=== PATIENT | male | born 1960 | race Caucasian/White ===

== ENCOUNTER 2018-03-09 09:30 | Inpatient (IN) ==
--- NOTE | 2018-03-09 10:04 | Emergency Department Note ---
Disposition Clinical Impression: Chest pain, rule out acute myocardial infarction Cholelithiasis Qualifiers: Cholelithiasis location: other site Biliary obstruction: without biliary obstruction Qualified Code(s): K80.80 - Other cholelithiasis without obstruction Pneumonia Qualifiers: Pneumonia type: due to unspecified organism Laterality: bilateral Lung location : unspecified part of lung Qualified Code(s): J18.9 - Pneumonia, unspecified organism Abdominal pain Qualifiers: Abdominal location: right upper quadrant Qualified Code(s): R10.11 - Right upper quadrant pain Disposition: Admitted As Inpatient Condition: Fair Referrals: Derick Ellis DO [Primary Care Provider] - Forms: ED Satisfaction Letter, Work/School Release Time of Disposition: 15:27 General Adult HPI - General Chief complaint: ED Abdominal Pain Stated complaint: poss kidney stone/sore throat/fever/left shoulder Time Seen by Provider: 03/09/18 09:46 Source: patient Limitations: no limitations Nursing Notes Reviewed: Yes Vital Signs Reviewed: Yes - History of Present Illness HPI Narrative: 57-year-old male presents with multiple complaints. He underwent banding of esophageal varices [address] Masters. Yesterday, he developed substernal/ left-sided chest pain as well as excruciating left shoulder pain he states a known history of a rotator cuff injury to left shoulder but is concerned that this may be associated with chest pain/pressure. He also complains of excruciating right flank pain but denies any fabiana hematuria or dysuria. He denies any fever or chills. He denies any productive cough but states that he has been more short of breath recently. He does wear home oxygen at 2 L by nasal cannula as needed but has required the use of his oxygen more frequently in the past several days. He denies any abdominal pain, nausea, vomiting, hematemesis, hematochezia, or melena. Onset (ago): hour(s) Location: chest, other (Right flank, left shoulder) Pain Severity: severe Pain Scale: 9 Quality: sharp Consistency: Worsening Improves with: nothing Worsens with: nothing Associated symptoms: Denies: fever/chills, nausea/vomiting Treatments Prior to Arrival: none - Related Data Home Medications Medication Instructions Recorded Confirmed ALPRAZolam [Xanax] 1 mg PO BID PRN 05/09/15 03/09/18 Atorvastatin Calcium [Lipitor] 20 mg PO HS 05/09/15 03/09/18 Metformin HCl [Glucophage] 1,000 mg PO BID 05/09/15 03/09/18 Metoprolol [Lopressor] 75 mg PO BID 05/09/15 03/09/18 Nitroglycerin [Nitrolingual] 4.9 gm TL AD PRN 05/09/15 03/09/18 Oxygen 2 l NS HS 03/26/16 03/09/18 Spironolactone [Aldactone] 100 mg PO DAILY 03/26/16 03/09/18 OxyCODONE/APAP 10/325 [Percocet 1 tab PO Q6H PRN 07/30/16 03/09/18 [id number]] Esomeprazole Magnesium [Nexium] 40 mg PO DAILY 12/24/16 03/09/18 Furosemide [Lasix] 40 mg PO DAILY 12/24/16 03/09/18 Insulin Glargine,Hum.rec.anlog 50 unit SQ BID 12/24/16 03/09/18 [Lantus Solostar] Insulin Regular, Human [Novolin R] 20 unit SQ TIDWM 04/28/17 03/09/18 Gabapentin [Neurontin] 300 mg PO BID 07/15/17 03/09/18 Pantoprazole Sodium [Protonix] 40 mg PO DAILY 03/09/18 03/09/18 Sucralfate [Carafate] 1 gm PO TID 03/09/18 03/09/18 Previous Rx's Medication Instructions Recorded Prochlorperazine Maleate 1 tab PO Q6HR PRN #30 tablet 05/07/17 [Compazine] Levothyroxine [Synthroid] 88 mcg PO 0630 #30 tablet 11/23/17 Allergies Allergy/AdvReac Type Severity Reaction Status Date / Time naproxen Allergy Mild Hives Verified 03/09/18 09:41 rituximab Allergy Mild Hives Verified 03/09/18 09:41 JUAN RAMON Inhibitors AdvReac Mild NECK PAIN Verified 03/09/18 09:41 cefdinir AdvReac Mild Dizziness Verified 03/09/18 09:41 hydrocodone AdvReac Mild Vomiting Verified 03/09/18 09:41 levofloxacin AdvReac Mild Dizziness Verified 03/09/18 09:41 ramipril [From Altace] AdvReac Mild NECK PAIN Verified 03/09/18 09:41 tramadol AdvReac Mild Nausea Verified 18 09:41 doxycycline AdvReac Vomiting Verified 03/09/18 09:41 All systems ED: reviewed and negative except as stated. Review of Systems: As Per HPI Constitutional: Denies: fever, chills, weakness, weight change Eyes: Denies: eye pain, eye discharge, vision change ENT ED: Denies: ear pain, throat pain, dental pain, hearing loss, epistaxis, congestion, dysphagia Cardiovascular: Reports: as per HPI, chest pain. Denies: palpitations, dyspnea on exertion, edema, syncope Respiratory: Reports: as per HPI, dyspnea. Denies: cough, wheezes, hemoptysis, stridor Gastrointestinal: Denies: abdominal pain, nausea, vomiting, diarrhea, constipation, hematemesis, melena, hematochezia Genitourinary: Denies: urgency, dysuria, frequency, hematuria Musculoskeletal: Reports: as per HPI, arthralgia (Left shoulder pain), other ( Right flank pain). Denies: back pain, neck pain, myalgia Integumentary: Denies: rash, abrasion, lesions Neurological: Denies: headache, weakness, numbness, paresthesias, confusion, abnormal gait, vertigo Psychiatric: Denies: anxiety, depression, suicidal thoughts, homicidal thoughts , auditory hallucinations, visual hallucinations Endocrine: Denies: fatigue Hematological/Lymphatic: Denies: easy bleeding, easy bruising Allergic/Immunologic: Denies: facial swelling, urticaria Past Medical History - Past Medical History Attestation: Yes The following information was validated with the patient. Source: patient, nursing notes reviewed Medical history: Reports: cancer, CHF, COPD, diabetes, GERD, hyperlipidemia, hypertension, kidney stones, myocardial infarction Surgical history: Reports: LE stent(s) Psychiatric history: Reports: depression - Social History Smoking Status: Former smoker Smokeless Tobacco Status: No Alcohol use: Reports: none Drug use: Reports: none Physical Exam - General Limitations: no limitations General appearance: alert - Head Head exam: atraumatic, normocephalic, normal inspection - Eye Eye exam: Present: normal appearance, PERRL, EOMI. Absent: nystagmus - ENT ENT exam: mucous membranes moist - Neck Neck exam: Present: normal inspection, full ROM, trachea midline - Chest Chest inspection: Present: normal inspection, symmetric chest wall rise - Respiratory Respiratory exam: Present: normal lung sounds bilaterally. Absent: respiratory distress, wheezes, stridor, accessory muscle use, prolonged expiratory phase - Cardiovascular Cardiovascular exam: Present: regular rate, normal rhythm, normal heart sounds - Abdominal Exam Abdominal exam: Present: soft, Non-Tender, normal bowel sounds - Expanded Upper Extremity Exam Shoulder exam: Present: tenderness, tenderness over AC joint. Absent: full ROM (Range of motion limited by pain, left shoulder) - Back Exam Back exam: Present: normal inspection, full ROM. Absent: tenderness, CVA tenderness (R), CVA tenderness (L) - Neurological Exam Neurological exam: Present: alert, oriented X3 - Psychiatric Psychiatric exam: Present: normal affect, normal mood - Skin Skin exam: Present: warm, dry, intact, normal color. Absent: rash Course Course Narrative: 1526: I spoke with Dr. Painter of the hospitalist service. He has agreed to accept the patient for admission to the hospitalist care. I discussed this plan with Dr. Vides. Dr. Vides has reviewed the patient's laboratory and radiologic workup and agrees with this plan. Vital Signs Temperature 100.2 F H 03/09/18 09:41 Pulse Rate 96 03/09/18 09:41 Respiratory Rate 28 03/09/18 09:41 Blood Pressure 149/80 03/09/18 09:41 O2 Sat by Pulse Oximetry 88 03/09/18 09:41 Temperature 100.2 F H 03/09/18 09:41 Pulse Rate 100 03/09/18 14:42 Respiratory Rate 24 03/09/18 14:42 Blood Pressure 149/92 03/09/18 14:42 O2 Sat by Pulse Oximetry 92 03/09/18 14:42 Oxygen Delivery Oxygen Delivery Nasal Cannula Medical Decision Making - Medical Records Medical records reviewed: Yes I reviewed the patient's medical records. - Lab Data Lab results reviewed: Yes I reviewed the patient's lab results. Lab results narrative: Laboratory Last Values WBC 3.2 K/mcL (4.3-11.1) L 03/09/18 10:38 RBC 4.51 M/mcL (4.19-5.50) 03/09/18 10:38 Hgb 13.2 g/dL (12.9-16.9) 03/09/18 10:38 Hct 40.6 % (37.5-50.1) 03/09/18 10:38 MCV 90.0 fL (83.0-100.0) 03/09/18 10:38 MCH 29.3 pg (28.0-33.3) 03/09/18 10:38 MCHC 32.5 g/dL (31.6-35.5) 03/09/18 10:38 RDW 14.6 % (11.5-14.5) H 03/09/18 10:38 Plt Count 46 K/mcL (140-400) L 03/09/18 10:38 MPV 11.0 fL (9.4-12.4) 03/09/18 10:38 Immature Plt Fraction 5.7 % (1.1-6.1) 03/09/18 10:38 PT 13.9 Seconds (9.4-12.1) H 03/09/18 10:38 INR 1.3 03/09/18 10:38 APTT 35.7 Seconds (26.0-36.0) 03/09/18 10:38 Sodium 132 mEq/L (136-145) L 03/09/18 10:38 Potassium 4.5 mEq/L (3.5-5.1) 03/09/18 10:38 Chloride 95 mEq/L (98-107) L 03/09/18 10:38 Carbon Dioxide 28 mEq/L (23-29) 03/09/18 10:38 BUN 12 mg/dL (6-20) 03/09/18 10:38 Creatinine 0.89 mg/dL (0.70-1.30) 03/09/18 10:38 Est GFR ( Amer) > 60 (> 60) 03/09/18 10:38 Est GFR (Non-Af Amer) > 60 (> 60) 03/09/18 10:38 BUN/Creatinine Ratio 13 (6-26) 03/09/18 10:38 Glucose 386 mg/dL (70-105) H 03/09/18 10:38 Calculated Osmolality 290 (280-300) 03/09/18 10:38 Calcium 9.5 mg/dL (8.6-10.3) 03/09/18 10:38 Total Bilirubin 6.4 mg/dL (0.3-1.0) H 03/09/18 10:38 AST 20 Units/L (13-39) 03/09/18 10:38 ALT 30 Units/L (7-52) 03/09/18 10:38 Alkaline Phosphatase 99 Units/L (34-104) 03/09/18 10:38 Troponin I 0.03 ng/mL (< 0.04) 03/09/18 10:38 Serum Total Protein 6.7 g/dL (6.4-8.9) 03/09/18 10:38 Albumin 4.2 g/dL (3.5-5.7) 03/09/18 10:38 Globulin 2.5 g/dL (2.4-3.5) 03/09/18 10:38 Albumin/Globulin Ratio 1.7 (1.1-2.2) 03/09/18 10:38 Lipase 5 Units/L (11-82) L 03/09/18 10:38 Result diagrams: 03/09/18 10:38 03/09/18 10:38 Lab Results 03/09/18 03/09/18 03/09/18 Range/Units 10:38 10:38 10:38 WBC (4.3-11.1) K/mcL RBC (4.19-5.50) M/mcL Hgb (12.9-16.9) g/dL Hct (37.5-50.1) % MCV (83.0-100.0) fL MCH (28.0-33.3) pg MCHC (31.6-35.5) g/dL RDW (11.5-14.5) % Plt Count (140-400) K/mcL MPV (9.4-12.4) fL Seg Neutrophils % % Band Neutrophils % (0-4) % Lymphocytes % % Monocytes % % Metamyelocytes % (0) % Neutrophils # (1.6-8.9) K/mcL Lymphocytes # (0.6-4.6) K/mcL Monocytes # (0.0-1.3) K/mcL Reactive Lymphocytes (Not Present) Platelet Estimate (Normal) Immature Plt Fraction (1.1-6.1) % PT 13.9 H (9.4-12.1) Seconds INR 1.3 APTT 35.7 (26.0-36.0) Seconds Sodium 132 L (136-145) mEq/L Potassium 4.5 (3.5-5.1) mEq/L Chloride 95 L (98-107) mEq/L Carbon Dioxide 28 (23-29) mEq/L BUN 12 (6-20) mg/dL Creatinine 0.89 (0.70-1.30) mg/dL Est GFR ( Amer) > 60 (> 60) Est GFR (Non-Af Amer) > 60 (> 60) BUN/Creatinine Ratio 13 (6-26) Glucose 386 H (70-105) mg/dL Calculated Osmolality 290 (280-300) Lactic Acid (0.5-2.2) mmol/L Calcium 9.5 (8.6-10.3) mg/dL Total Bilirubin 6.4 H (0.3-1.0) mg/dL AST 20 (13-39) Units/L ALT 30 (7-52) Units/L Alkaline Phosphatase 99 (34-104) Units/L Troponin I 0.03 (< 0.04) ng/mL B-Natriuretic Peptide 200 H (Less than 100) pg/mL Serum Total Protein 6.7 (6.4-8.9) g/dL Albumin 4.2 (3.5-5.7) g/dL Globulin 2.5 (2.4-3.5) g/dL Albumin/Globulin Ratio 1.7 (1.1-2.2) Lipase 5 L (11-82) Units/L Urine Color (Yellow) Urine Clarity (Clear) Urine pH (5.0-8.0) pH Units Ur Specific [place] (1.010-1.025) Urine Protein (Neg-Trace) mg/dL Urine Glucose (UA) (Normal) mg/dL Urine Ketones (Negative) mg/dL Urine Blood (Negative) Urine Nitrite (Negative) Urine Bilirubin (Negative) Urine Urobilinogen (Normal) mg/dL Ur Leukocyte Esterase (Negative) Urine Microscopic RBC Urine Microscopic WBC (0-3) per hpf Ur Squamous Epith Cells (None-Few) per lpf Urine Bacteria (None-Few) per hpf Hyaline Casts (None-Few) per lpf Urine Yeast Ur Culture Indicated? (NO) Specimen Rejected 03/09/18 03/09/18 03/09/18 Range/Units 10:38 10:58 11:58 WBC 3.2 L (4.3-11.1) K/mcL RBC 4.51 (4.19-5.50) M/mcL Hgb 13.2 (12.9-16.9) g/dL Hct 40.6 (37.5-50.1) % MCV 90.0 (83.0-100.0) fL MCH 29.3 (28.0-33.3) pg MCHC 32.5 (31.6-35.5) g/dL RDW 14.6 H (11.5-14.5) % Plt Count 46 L (140-400) K/mcL MPV 11.0 (9.4-12.4) fL Seg Neutrophils % 34.0 % Band Neutrophils % 16.0 H (0-4) % Lymphocytes % 26.0 % Monocytes % 14.0 % Metamyelocytes % 10.0 H (0) % Neutrophils # 1.6 (1.6-8.9) K/mcL Lymphocytes # 0.8 (0.6-4.6) K/mcL Monocytes # 0.5 (0.0-1.3) K/mcL Reactive Lymphocytes Present A (Not Present) Platelet Estimate Decreased L (Normal) Immature Plt Fraction 5.7 (1.1-6.1) % PT (9.4-12.1) Seconds INR APTT (26.0-36.0) Seconds Sodium (136-145) mEq/L Potassium (3.5-5.1) mEq/L Chloride (98-107) mEq/L Carbon Dioxide (23-29) mEq/L BUN (6-20) mg/dL Creatinine (0.70-1.30) mg/dL Est GFR ( Amer) (> 60) Est GFR (Non-Af Amer) (> 60) BUN/Creatinine Ratio (6-26) Glucose (70-105) mg/dL Calculated Osmolality (280-300) Lactic Acid (0.5-2.2) mmol/L Calcium (8.6-10.3) mg/dL Total Bilirubin (0.3-1.0) mg/dL AST (13-39) Units/L ALT (7-52) Units/L Alkaline Phosphatase (34-104) Units/L Troponin I (< 0.04) ng/mL B-Natriuretic Peptide (Less than 100) pg/mL Serum Total Protein (6.4-8.9) g/dL Albumin (3.5-5.7) g/dL Globulin (2.4-3.5) g/dL Albumin/Globulin Ratio (1.1-2.2) Lipase (11-82) Units/L Urine Color Dark Yellow (Yellow) Urine Clarity Clear (Clear) Urine pH 6.0 (5.0-8.0) pH Units Ur Specific [place] > 1.030 H (1.010-1.025) Urine Protein 30 H (Neg-Trace) mg/dL Urine Glucose (UA) >=1000 H (Normal) mg/dL Urine Ketones Trace H (Negative) mg/dL Urine Blood Trace H (Negative) Urine Nitrite Negative (Negative) Urine Bilirubin Negative (Negative) Urine Urobilinogen Normal (Normal) mg/dL Ur Leukocyte Esterase Negative (Negative) Urine Microscopic RBC Test Not Performed Urine Microscopic WBC 0-3 (0-3) per hpf Ur Squamous Epith Cells Few (None-Few) per lpf Urine Bacteria Few (None-Few) per hpf Hyaline Casts None Seen (None-Few) per lpf Urine Yeast Test Not Performed Ur Culture Indicated? NO (NO) Specimen Rejected Hemolyzed 03/09/18 Range/Units 12:39 WBC (4.3-11.1) K/mcL RBC (4.19-5.50) M/mcL Hgb (12.9-16.9) g/dL Hct (37.5-50.1) % MCV (83.0-100.0) fL MCH (28.0-33.3) pg MCHC (31.6-35.5) g/dL RDW (11.5-14.5) % Plt Count (140-400) K/mcL MPV (9.4-12.4) fL Seg Neutrophils % % Band Neutrophils % (0-4) % Lymphocytes % % Monocytes % % Metamyelocytes % (0) % Neutrophils # (1.6-8.9) K/mcL Lymphocytes # (0.6-4.6) K/mcL Monocytes # (0.0-1.3) K/mcL Reactive Lymphocytes (Not Present) Platelet Estimate (Normal) Immature Plt Fraction (1.1-6.1) % PT (9.4-12.1) Seconds INR APTT (26.0-36.0) Seconds Sodium (136-145) mEq/L Potassium (3.5-5.1) mEq/L Chloride (98-107) mEq/L Carbon Dioxide (23-29) mEq/L BUN (6-20) mg/dL Creatinine (0.70-1.30) mg/dL Est GFR ( Amer) (> 60) Est GFR (Non-Af Amer) (> 60) BUN/Creatinine Ratio (6-26) Glucose (70-105) mg/dL Calculated Osmolality (280-300) Lactic Acid 1.8 (0.5-2.2) mmol/L Calcium (8.6-10.3) mg/dL Total Bilirubin (0.3-1.0) mg/dL AST (13-39) Units/L ALT (7-52) Units/L Alkaline Phosphatase (34-104) Units/L Troponin I (< 0.04) ng/mL B-Natriuretic Peptide (Less than 100) pg/mL Serum Total Protein (6.4-8.9) g/dL Albumin (3.5-5.7) g/dL Globulin (2.4-3.5) g/dL Albumin/Globulin Ratio (1.1-2.2) Lipase (11-82) Units/L Urine Color (Yellow) Urine Clarity (Clear) Urine pH (5.0-8.0) pH Units Ur Specific [place] (1.010-1.025) Urine Protein (Neg-Trace) mg/dL Urine Glucose (UA) (Normal) mg/dL Urine Ketones (Negative) mg/dL Urine Blood (Negative) Urine Nitrite (Negative) Urine Bilirubin (Negative) Urine Urobilinogen (Normal) mg/dL Ur Leukocyte Esterase (Negative) Urine Microscopic RBC Urine Microscopic WBC (0-3) per hpf Ur Squamous Epith Cells (None-Few) per lpf Urine Bacteria (None-Few) per hpf Hyaline Casts (None-Few) per lpf Urine Yeast Ur Culture Indicated? (NO) Specimen Rejected - Radiology Data Radiology results reviewed: Yes I reviewed the patient's radiology results. Chest X-Ray 03/09/18 09:56 IMPRESSION: 1. Interval worsening of cardiomegaly with prominence of the pulmonary vasculature and trace bilateral effusions. Findings are favored to represent pulmonary edema, however, atypical infection can have a similar appearance. D/ / 03/09/2018 11:08:34 Monica Ny MD / nikos Interpreting Provider: Monica Ny MD - EKG Data EKG #1 EKG attestation: Yes I reviewed and interpreted this EKG. EKG results narrative: EKG reviewed by Dr. Vides as well. EKG shows a sinus rhythm with a ventricular rate of 96 bpm. AR interval 172, QRS duration 114, QT/QTc interval 358/411. No ectopy noted. No STEMI. No significant changes when compared to an EKG dated from 07/24/16.
[2018-03-09 10:48] LABS: Red Cell Distribution Width 14.6 % (11.5-14.5)
[2018-03-09 10:50] LABS: Hematocrit 40.6 % (37.5-50.1); Hemoglobin 13.2 g/dL (12.9-16.9); Immature Platelets 5.7 % (1.1-6.1); Mean Corpuscular HGB Conc 32.5 g/dL (31.6-35.5); Mean Corpuscular Hemoglobin 29.3 pg (28.0-33.3); Red Blood Count 4.51 M/mcL (4.19-5.50)
[2018-03-09 10:56] LABS: Platelet Count 46 K/mcL (140-400)
[2018-03-09 10:59] LABS: INR 1.3; Prothrombin Time 13.9 Seconds (9.4-12.1)
[2018-03-09 11:01] LABS: Activated Partial Thrombo Time 35.7 Seconds (26.0-36.0)
[2018-03-09 11:09] LABS: Troponin I 0.03 ng/mL (< 0.04)
[2018-03-09 11:10] LABS: Alanine Aminotransferase 30 Units/L (7-52); Albumin 4.2 g/dL (3.5-5.7); Albumin/Globulin Ratio 1.7 (1.1-2.2); Alkaline Phosphatase 99 Units/L (34-104); Aspartate Amino Transferase 20 Units/L (13-39); BUN/Creatinine Ratio 13 (6-26); Bilirubin,Total 6.4 mg/dL (0.3-1.0); Blood Urea Nitrogen 12 mg/dL (6-20); Calcium 9.5 mg/dL (8.6-10.3); Carbon Dioxide 28 mEq/L (23-29); Chloride 95 mEq/L (98-107); Globulin 2.5 g/dL (2.4-3.5); Glucose 386 mg/dL (70-105); Lipase 5 Units/L (11-82); Osmolality,Calculated 290 (280-300); Potassium 4.5 mEq/L (3.5-5.1); Sodium 132 mEq/L (136-145); Total Protein 6.7 g/dL (6.4-8.9); eGFR For African Americans > 60 (> 60); eGFR For Non-African Americans > 60 (> 60)
--- NOTE | 2018-03-09 11:11 | Emergency Department Note ---
Disposition Clinical Impression: Chest pain, rule out acute myocardial infarction Cholelithiasis Qualifiers: Cholelithiasis location: other site Biliary obstruction: without biliary obstruction Qualified Code(s): K80.80 - Other cholelithiasis without obstruction Pneumonia Qualifiers: Pneumonia type: due to unspecified organism Laterality: bilateral Lung location : unspecified part of lung Qualified Code(s): J18.9 - Pneumonia, unspecified organism Abdominal pain Qualifiers: Abdominal location: right upper quadrant Qualified Code(s): R10.11 - Right upper quadrant pain Disposition: Admitted As Inpatient Condition: Fair General Adult HPI - General Chief complaint: ED Abdominal Pain Stated complaint: poss kidney stone/sore throat/fever/left shoulder Time Seen by Provider: 03/09/18 09:46 Source: patient Limitations: no limitations - History of Present Illness Location: chest, other (Right flank, left shoulder) Pain Scale: 6 Quality: sharp Improves with: nothing Worsens with: nothing Associated symptoms: Denies: fever/chills, nausea/vomiting Treatments Prior to Arrival: none - Related Data Home Medications Medication Instructions Recorded Confirmed ALPRAZolam [Xanax] 1 mg PO BID PRN 05/09/15 03/09/18 Atorvastatin Calcium [Lipitor] 20 mg PO HS 05/09/15 03/09/18 Metformin HCl [Glucophage] 1,000 mg PO BID 05/09/15 03/09/18 Metoprolol [Lopressor] 75 mg PO BID 05/09/15 03/09/18 Nitroglycerin [Nitrolingual] 4.9 gm TL AD PRN 05/09/15 03/09/18 Oxygen 2 l NS 03/26/16 03/09/18 Spironolactone [Aldactone] 100 mg PO DAILY 03/26/16 03/09/18 OxyCODONE/APAP 10/325 [Percocet 1 tab PO Q6H PRN 07/30/16 03/09/18 10/325] Esomeprazole Magnesium [Nexium] 40 mg PO DAILY 12/24/16 03/09/18 Furosemide [Lasix] 40 mg PO DAILY 12/24/16 03/09/18 Insulin Glargine,Hum.rec.anlog 50 unit SQ BID 12/24/16 03/09/18 [Lantus Solostar] Insulin Regular, Human [Novolin R] 20 unit SQ TIDWM 04/28/17 03/09/18 Gabapentin [Neurontin] 300 mg PO BID 07/15/17 03/09/18 Pantoprazole Sodium [Protonix] 40 mg PO DAILY 03/09/18 03/09/18 Sucralfate [Carafate] 1 gm PO TID 03/09/18 03/09/18 Previous Rx's Medication Instructions Recorded Prochlorperazine Maleate 1 tab PO Q6HR PRN #30 tablet 05/07/17 [Compazine] Levothyroxine [Synthroid] 88 mcg PO 0630 #30 tablet 11/23/17 Allergies Allergy/AdvReac Type Severity Reaction Status Date / Time naproxen Allergy Mild Hives Verified 03/09/18 09:41 rituximab Allergy Mild Hives Verified 03/09/18 09:41 JUAN RAMON Inhibitors AdvReac Mild NECK PAIN Verified 03/09/18 09:41 cefdinir AdvReac Mild Dizziness Verified 03/09/18 09:41 hydrocodone AdvReac Mild Vomiting Verified 03/09/18 09:41 levofloxacin AdvReac Mild Dizziness Verified 03/09/18 09:41 ramipril [From Altace] AdvReac Mild NECK PAIN Verified 03/09/18 09:41 tramadol AdvReac Mild Nausea Verified 03/09/18 09:41 doxycycline AdvReac Vomiting Verified 03/09/18 09:41 Constitutional: Denies: fever, chills, weakness, weight change Eyes: Denies: eye pain, eye discharge, vision change ENT ED: Denies: ear pain, throat pain, dental pain, hearing loss, epistaxis, congestion, dysphagia Cardiovascular: Reports: as per HPI, chest pain. Denies: palpitations, dyspnea on exertion, edema, syncope Respiratory: Reports: as per HPI, dyspnea. Denies: cough, wheezes, hemoptysis, stridor Gastrointestinal: Denies: abdominal pain, nausea, vomiting, diarrhea, constipation, hematemesis, melena, hematochezia Genitourinary: Denies: urgency, dysuria, frequency, hematuria Musculoskeletal: Reports: as per HPI, arthralgia (Left shoulder pain), other ( Right flank pain). Denies: back pain, neck pain, myalgia Integumentary: Denies: rash, abrasion, lesions Neurological: Denies: headache, weakness, numbness, paresthesias, confusion, abnormal gait, vertigo Psychiatric: Denies: anxiety, depression, suicidal thoughts, homicidal thoughts , auditory hallucinations, visual hallucinations Endocrine: Denies: fatigue Hematological/Lymphatic: Denies: easy bleeding, easy bruising Allergic/Immunologic: Denies: facial swelling, urticaria Past Medical History - Past Medical History Medical history: Reports: cancer, CHF, COPD, diabetes, GERD, hyperlipidemia, hypertension, kidney stones, myocardial infarction Surgical history: Reports: LE stent(s) Psychiatric history: Reports: depression - Social History Smoking Status: Former smoker Smokeless Tobacco Status: No Alcohol use: Reports: none Drug use: Reports: none Physical Exam - General Limitations: no limitations General appearance: alert Course Vital Signs Temperature 100.2 F H 03/09/18 09:41 Pulse Rate 96 03/09/18 09:41 Respiratory Rate 28 03/09/18 09:41 Blood Pressure 149/80 03/09/18 09:41 O2 Sat by Pulse Oximetry 88 03/09/18 09:41 Temperature 98.4 F 03/09/18 19:24 Pulse Rate 97 03/09/18 19:24 Respiratory Rate 16 03/09/18 19:24 Blood Pressure 119/68 03/09/18 19:24 O2 Sat by Pulse Oximetry 93 03/09/18 19:24 Oxygen Delivery Oxygen Delivery Nasal Cannula Medical Decision Making - Lab Data Result diagrams: 03/09/18 10:38 03/09/18 10:38 Lab Results 03/09/18 03/09/18 03/09/18 Range/Units 10:38 10:38 10:38 WBC (4.3-11.1) K/mcL RBC (4.19-5.50) M/mcL Hgb (12.9-16.9) g/dL Hct (37.5-50.1) % MCV (83.0-100.0) fL MCH (28.0-33.3) pg MCHC (31.6-35.5) g/dL RDW (11.5-14.5) % Plt Count (140-400) K/mcL MPV (9.4-12.4) fL Seg Neutrophils % % Band Neutrophils % (0-4) % Lymphocytes % % Monocytes % % Metamyelocytes % (0) % Neutrophils # (1.6-8.9) K/mcL Lymphocytes # (0.6-4.6) K/mcL Monocytes # (0.0-1.3) K/mcL Reactive Lymphocytes (Not Present) Platelet Estimate (Normal) Immature Plt Fraction (1.1-6.1) % PT 13.9 H (9.4-12.1) Seconds INR 1.3 APTT 35.7 (26.0-36.0) Seconds Sodium 132 L (136-145) mEq/L Potassium 4.5 (3.5-5.1) mEq/L Chloride 95 L (98-107) mEq/L Carbon Dioxide 28 (23-29) mEq/L BUN 12 (6-20) mg/dL Creatinine 0.89 (0.70-1.30) mg/dL Est GFR ( Amer) > 60 (> 60) Est GFR (Non-Af Amer) > 60 (> 60) BUN/Creatinine Ratio 13 (6-26) Glucose 386 H (70-105) mg/dL Calculated Osmolality 290 (280-300) Lactic Acid (0.5-2.2) mmol/L Calcium 9.5 (8.6-10.3) mg/dL Total Bilirubin 6.4 H (0.3-1.0) mg/dL AST 20 (13-39) Units/L ALT 30 (7-52) Units/L Alkaline Phosphatase 99 (34-104) Units/L Troponin I 0.03 (< 0.04) ng/mL B-Natriuretic Peptide 200 H (Less than 100) pg/mL Serum Total Protein 6.7 (6.4-8.9) g/dL Albumin 4.2 (3.5-5.7) g/dL Globulin 2.5 (2.4-3.5) g/dL Albumin/Globulin Ratio 1.7 (1.1-2.2) Lipase 5 L (11-82) Units/L Urine Color (Yellow) Urine Clarity (Clear) Urine pH (5.0-8.0) pH Units Ur Specific [place] (1.010-1.025) Urine Protein (Neg-Trace) mg/dL Urine Glucose (UA) (Normal) mg/dL Urine Ketones (Negative) mg/dL Urine Blood (Negative) Urine Nitrite (Negative) Urine Bilirubin (Negative) Urine Urobilinogen (Normal) mg/dL Ur Leukocyte Esterase (Negative) Urine Microscopic RBC Urine Microscopic WBC (0-3) per hpf Ur Squamous Epith Cells (None-Few) per lpf Urine Bacteria (None-Few) per hpf Hyaline Casts (None-Few) per lpf Urine Yeast Ur Culture Indicated? (NO) Specimen Rejected 03/09/18 03/09/18 03/09/18 Range/Units 10:38 10:58 11:58 WBC 3.2 L (4.3-11.1) K/mcL RBC 4.51 (4.19-5.50) M/mcL Hgb 13.2 (12.9-16.9) g/dL Hct 40.6 (37.5-50.1) % MCV 90.0 (83.0-100.0) fL MCH 29.3 (28.0-33.3) pg MCHC 32.5 (31.6-35.5) g/dL RDW 14.6 H (11.5-14.5) % Plt Count 46 L (140-400) K/mcL MPV 11.0 (9.4-12.4) fL Seg Neutrophils % 34.0 % Band Neutrophils % 16.0 H (0-4) % Lymphocytes % 26.0 % Monocytes % 14.0 % Metamyelocytes % 10.0 H (0) % Neutrophils # 1.6 (1.6-8.9) K/mcL Lymphocytes # 0.8 (0.6-4.6) K/mcL Monocytes # 0.5 (0.0-1.3) K/mcL Reactive Lymphocytes Present A (Not Present) Platelet Estimate Decreased L (Normal) Immature Plt Fraction 5.7 (1.1-6.1) % PT (9.4-12.1) Seconds INR APTT (26.0-36.0) Seconds Sodium (136-145) mEq/L Potassium (3.5-5.1) mEq/L Chloride (98-107) mEq/L Carbon Dioxide (23-29) mEq/L BUN (6-20) mg/dL Creatinine (0.70-1.30) mg/dL Est GFR ( Amer) (> 60) Est GFR (Non-Af Amer) (> 60) BUN/Creatinine Ratio (6-26) Glucose (70-105) mg/dL Calculated Osmolality (280-300) Lactic Acid (0.5-2.2) mmol/L Calcium (8.6-10.3) mg/dL Total Bilirubin (0.3-1.0) mg/dL AST (13-39) Units/L ALT (7-52) Units/L Alkaline Phosphatase (34-104) Units/L Troponin I (< 0.04) ng/mL B-Natriuretic Peptide (Less than 100) pg/mL Serum Total Protein (6.4-8.9) g/dL Albumin (3.5-5.7) g/dL Globulin (2.4-3.5) g/dL Albumin/Globulin Ratio (1.1-2.2) Lipase (11-82) Units/L Urine Color Dark Yellow (Yellow) Urine Clarity Clear (Clear) Urine pH 6.0 (5.0-8.0) pH Units Ur Specific [place] > 1.030 H (1.010-1.025) Urine Protein 30 H (Neg-Trace) mg/dL Urine Glucose (UA) >=1000 H (Normal) mg/dL Urine Ketones Trace H (Negative) mg/dL Urine Blood Trace H (Negative) Urine Nitrite Negative (Negative) Urine Bilirubin Negative (Negative) Urine Urobilinogen Normal (Normal) mg/dL Ur Leukocyte Esterase Negative (Negative) Urine Microscopic RBC Test Not Performed Urine Microscopic WBC 0-3 (0-3) per hpf Ur Squamous Epith Cells Few (None-Few) per lpf Urine Bacteria Few (None-Few) per hpf Hyaline Casts None Seen (None-Few) per lpf Urine Yeast Test Not Performed Ur Culture Indicated? NO (NO) Specimen Rejected Hemolyzed 03/09/18 Range/Units 12:39 WBC (4.3-11.1) K/mcL RBC (4.19-5.50) M/mcL Hgb (12.9-16.9) g/dL Hct (37.5-50.1) % MCV (83.0-100.0) fL MCH (28.0-33.3) pg MCHC (31.6-35.5) g/dL RDW (11.5-14.5) % Plt Count (140-400) K/mcL MPV (9.4-12.4) fL Seg Neutrophils % % Band Neutrophils % (0-4) % Lymphocytes % % Monocytes % % Metamyelocytes % (0) % Neutrophils # (1.6-8.9) K/mcL Lymphocytes # (0.6-4.6) K/mcL Monocytes # (0.0-1.3) K/mcL Reactive Lymphocytes (Not Present) Platelet Estimate (Normal) Immature Plt Fraction (1.1-6.1) % PT (9.4-12.1) Seconds INR APTT (26.0-36.0) Seconds Sodium (136-145) mEq/L Potassium (3.5-5.1) mEq/L Chloride (98-107) mEq/L Carbon Dioxide (23-29) mEq/L BUN (6-20) mg/dL Creatinine (0.70-1.30) mg/dL Est GFR ( Amer) (> 60) Est GFR (Non-Af Amer) (> 60) BUN/Creatinine Ratio (6-26) Glucose (70-105) mg/dL Calculated Osmolality (280-300) Lactic Acid 1.8 (0.5-2.2) mmol/L Calcium (8.6-10.3) mg/dL Total Bilirubin (0.3-1.0) mg/dL AST (13-39) Units/L ALT (7-52) Units/L Alkaline Phosphatase (34-104) Units/L Troponin I (< 0.04) ng/mL B-Natriuretic Peptide (Less than 100) pg/mL Serum Total Protein (6.4-8.9) g/dL Albumin (3.5-5.7) g/dL Globulin (2.4-3.5) g/dL Albumin/Globulin Ratio (1.1-2.2) Lipase (11-82) Units/L Urine Color (Yellow) Urine Clarity (Clear) Urine pH (5.0-8.0) pH Units Ur Specific [place] (1.010-1.025) Urine Protein (Neg-Trace) mg/dL Urine Glucose (UA) (Normal) mg/dL Urine Ketones (Negative) mg/dL Urine Blood (Negative) Urine Nitrite (Negative) Urine Bilirubin (Negative) Urine Urobilinogen (Normal) mg/dL Ur Leukocyte Esterase (Negative) Urine Microscopic RBC Urine Microscopic WBC (0-3) per hpf Ur Squamous Epith Cells (None-Few) per lpf Urine Bacteria (None-Few) per hpf Hyaline Casts (None-Few) per lpf Urine Yeast Ur Culture Indicated? (NO) Specimen Rejected
[2018-03-09] MEDS ORDERED: Isovue-370 500 ML INFUS..BTL IV ONE (11:15)
[2018-03-09 11:22] LABS: Bilirubin,Urine Negative (Negative); Blood,Urine Trace (Negative); Clarity,Urine Clear (Clear); Color,Urine Dark Yellow (Yellow); Glucose,Urine (UA) >=1000 mg/dL (Normal); Ketones,Urine Trace mg/dL (Negative); Leukocyte Esterase,Urine Negative (Negative); Nitrite,Urine Negative (Negative); Protein,Urine 30 mg/dL (Neg-Trace); Specific Gravity,Urine > 1.030 (1.010-1.025); Urobilinogen,Urine Normal (Normal)
[2018-03-09] MEDS ORDERED: Piperacillin/Tazobactam 3.375 GM in 0.9 % Sodium Chloride Mini Bag 100 ML IVPB ONE (11:26)
[2018-03-09 11:27] LABS: Hyaline Casts,Urine None Seen per lpf (None-Few)
[2018-03-09 11:31] LABS: Lymphocytes # 0.8 K/mcL (0.6-4.6); Monocytes # 0.5 K/mcL (0.0-1.3); Neutrophils # 1.6 K/mcL (1.6-8.9); Platelet Estimate Decreased (Normal); Reactive Lymphocytes Present (Not Present)
[2018-03-09 11:44] LABS: Bacteria,Urine Few per hpf (None-Few); Squamous Epithelial Cell,Urine Few per lpf (None-Few)
[2018-03-09 11:45] LABS: WBC,Urine 0-3 per hpf (0-3)
[2018-03-09] MEDS ORDERED: Naloxone 0.4 MG/ML INJ IVP PRN (16:19)
[2018-03-09] MEDS ORDERED: *HR* OxyCODONE/APAP 10/325 TABLET PO PRN (16:24)
[2018-03-09] MEDS ORDERED: Nitroglycerin Spray 4.9 GM BOTTLE TL PRN (16:24)
[2018-03-09] MEDS ORDERED: ALPRAZolam 1 MG TABLET PO PRN (16:24)
[2018-03-09] MEDS ORDERED: *HR* OxyCODONE/APAP 5/325 TABLET PO ONE (16:45)
[2018-03-09] MEDS ORDERED: Ondansetron ODT 4 MG TAB.RAPDIS SL ONE (16:45)
--- NOTE | 2018-03-09 16:49 | Internal Med History&Physical ---
<Mandi Lee - Last Filed: 03/09/18 17:39> Date of Encounter: 03/09/18 Time of Encounter: 16:36 Internal Medicine - H&P: HPI Chief complaint: RUQ pain and chest pain Admitted From: Home Plans for Post Hospital Care: Home History of present illness: Mr. Fang is a 57 year old male who has hx of esophageal varices, CLL, VA, and DM type 11. The patient saw Dr Masters on the for a esophageal banding check. The patient indicated that his bands were intact but a polyp was seen and was removed. The patient indicated that he hassn't felt well since the procedure and c/o RUQ pain, sob and mild chest tightness. The patient was found to have a distended GB in the Ed which was visualized with a CT that showed choliliathiases with nonspecific gallbladder wall thickening. This was noted to likely be related to liver disease rather than an acute sonal. The patient total bilirubin was also elevated at 6.4. The chest ct showed no pulmonary embolus, a 14 mm nodule that was not present in Oct 2017, and opacities that could represent PNA. The patient was started on zosyn in the ED. The wbc count was 3.2. Subjective fevers reported. Temp is currently 100.2. Na is 132, BNP is 200, trop was 0.03. he patient is currently on 4L nasal cannula with o2 sat at 92%. Blood glucose is elevated at 386 and UA was + for glucose gt 1000. Discussed the case with Dr. Floyd, who recommended no tylenol products, continue zosyn and he will see that patient in am. Past Med Surg Social Fam HX - Past Medical History Medical history: cancer, CHF, COPD, diabetes, GERD, hyperlipidemia, hypertension , kidney stones, myocardial infarction Additional medical history: morbid obesity with BMI of 45-49 adult. history of colon polyps. stomach polyp removed. esophageal varicies banded. lymphatic leukemia Psychiatric history: depression - Past Surgical History Surgical History: LE stent(s) Additional surgical history: Hernia repair. Kidney stones. esophageal varicies. stomach polyp removed and clamp placed - Social History Smoking Status: Former smoker Smokeless Tobacco Status: No Alcohol use: none Drug use: none Internal Medicine - H&P: Meds ALPRAZolam [Xanax] 1 mg PO BID PRN 05/09/15 [History] Atorvastatin Calcium [Lipitor] 20 mg PO HS 05/09/15 [History] Metformin HCl [Glucophage] 1,000 mg PO BID 05/09/15 [History] Metoprolol [Lopressor] 75 mg PO BID 05/09/15 [History] Nitroglycerin [Nitrolingual] 4.9 gm TL AD PRN 05/09/15 [History] Oxygen 2 l NS HS 03/26/16 [History] Spironolactone [Aldactone] 100 mg PO DAILY 03/26/16 [History] OxyCODONE/APAP 10/325 [Percocet 10/325] 1 tab PO Q6H PRN 07/30/16 [History] Esomeprazole Magnesium [Nexium] 40 mg PO DAILY 12/24/16 [History] Furosemide [Lasix] 40 mg PO DAILY 12/24/16 [History] Insulin Glargine,Hum.rec.anlog [Lantus Solostar] 50 unit SQ BID 12/24/16 [ History] Insulin Regular, Human [Novolin R] 20 unit SQ TIDWM 04/28/17 [History] Prochlorperazine Maleate [Compazine] 1 tab PO Q6HR PRN #30 tablet 05/07/17 [Rx] Gabapentin [Neurontin] 300 mg PO BID 07/15/17 [History] Levothyroxine [Synthroid] 88 mcg PO 0630 #30 tablet 11/23/17 [Rx] Pantoprazole Sodium [Protonix] 40 mg PO DAILY 03/09/18 [History] Sucralfate [Carafate] 1 gm PO TID 03/09/18 [History] 3 Allergy/AdvReac Type Severity Reaction Status Date / Time naproxen Allergy Mild Hives Verified 03/09/18 09:41 rituximab Allergy Mild Hives Verified 03/09/18 09:41 JUAN RAMON Inhibitors AdvReac Mild NECK PAIN Verified 03/09/18 09:41 cefdinir AdvReac Mild Dizziness Verified 03/09/18 09:41 hydrocodone AdvReac Mild Vomiting Verified 03/09/18 09:41 levofloxacin AdvReac Mild Dizziness Verified 03/09/18 09:41 ramipril [From Altace] AdvReac Mild NECK PAIN Verified 03/09/18 09:41 tramadol AdvReac Mild Nausea Verified 03/09/18 09:41 doxycycline AdvReac Vomiting Verified 03/09/18 09:41 All Systems PM: A 10-system review of systems was performed and is negative for pertinent findings except as documented above in the HPI. - Constitutional Constitutional: fatigue, fever(s), no chills, no night sweats - EENT Eyes: no change in vision, no discharge, no pain, no photophobia Ears: no ear discharge, no ear pain, no tinnitus Nose, mouth and throat: sore throat, no dysphagia, no nasal discharge, no neck pain - Cardiovascular Cardiovascular ROS IM: chest pain, dyspnea, no diaphoresis, no lightheadedness, no palpitations, no syncope - Respiratory Respiratory: cough, no dyspnea, no wheezing, no excessive phlegm production - Gastrointestinal Gastrointestinal: no abdominal pain, no diarrhea, no hematemesis, no hematochezia, no melena, no nausea, no vomiting - Musculoskeletal Musculoskeletal ROS IM: no numbness, no tingling - Integumentary Integumentary IM: no rash, no unusual bruising - Neurological Neurological ROS: no confusion, no convulsions, no focal weakness, no numbness, no tingling, no tremor(s) - Hematologic/Lymphatic Hematologic/Lymphatic: no easy bruising - Constitutional Vitals: Temp Pulse Resp BP Pulse Ox 100.2 F H 88 24 128/69 93 03/09/18 09:41 03/09/18 16:10 03/09/18 16:10 03/09/18 16:10 03/09/18 16:10 General appearance: Present: cooperative, A&O X 3, answers questions appropriately - Head Head exam: Present: atraumatic, normocephalic - Eye Eye exam: Present: PERRL, conjuntiva pink, sclera anicteric Pupils: Present: PERRL - Neck Neck exam general surgery: Present: supple, trachea midline. Absent: lymphadenopathy - Respiratory Respiratory exam: Present: decreased breath sounds. Absent: accessory muscle use, rales, rhonchi, wheezes - Cardiovascular Cardiovascular exam: Present: RRR, +S1, +S2. Absent: diastolic murmur, gallop, rubs, systolic murmur - GI/Abdominal GI/Abdominal exam: Present: distended, normal bowel sounds, soft, tenderness, no peritoneal signs - Extremities Exam Extremities exam: Present: warm, radial pulses palpable and symmetrical. Absent : calf tenderness, cyanotic, pedal edema - Neurological Exam Neurological exam: Present: CN II-XII intact, oriented X3, no focal deficits. Absent: pronater drift, facial droop, speech deficit - Skin Skin exam: Present: dry, intact Internal Med - H&P Results - Labs CBC & Chem 7: 03/09/18 10:38 03/09/18 10:38 Labs: Short CBC 03/09/18 Range/Units 10:38 WBC 3.2 L (4.3-11.1) K/mcL Hgb 13.2 (12.9-16.9) g/dL Hct 40.6 (37.5-50.1) % Plt Count 46 L (140-400) K/mcL Neutrophils # 1.6 (1.6-8.9) K/mcL BMP 03/09/18 10:38 Sodium 132 L Potassium 4.5 Chloride 95 L Carbon Dioxide 28 BUN 12 Creatinine 0.89 Glucose 386 H Calcium 9.5 Cardiac Enzymes 03/09/18 Range/Units 10:38 Troponin I 0.03 (< 0.04) ng/mL Liver Function 03/09/18 Range/Units 10:38 Total Bilirubin 6.4 H (0.3-1.0) mg/dL AST 20 (13-39) Units/L ALT 30 (7-52) Units/L Alkaline Phosphatase 99 (34-104) Units/L Albumin 4.2 (3.5-5.7) g/dL Urine 03/09/18 Range/Units 10:58 Urine Color Dark Yellow (Yellow) Urine Clarity Clear (Clear) Urine pH 6.0 (5.0-8.0) pH Units Ur Specific [place] > 1.030 H (1.010-1.025) Urine Protein 30 H (Neg-Trace) mg/dL Urine Glucose (UA) >=1000 H (Normal) mg/dL - Impressions ITS Impressions Chest X-Ray 03/09/18 09:56 IMPRESSION: 1. Interval worsening of cardiomegaly with prominence of the pulmonary vasculature and trace bilateral effusions. Findings are favored to represent pulmonary edema, however, atypical infection can have a similar appearance. D/ / 03/09/2018 11:08:34 Monica Ny MD / nikos Interpreting Provider: Monica Ny MD Abdomen/Pelvis CT 03/09/18 11:15 IMPRESSION: 1. Distended gallbladder. This could be due to a prolonged fasting state. I would suggest clinical correlation. Further evaluation with ultrasound is suggested to evaluate for any gallbladder wall thickening or pericholecystic fluid. 2. Nodular appearance to the liver likely representing cirrhosis with hepatosplenomegaly and sequela of portal hypertension. 3. Abnormal gas-filled mildly dilated loops of distal small bowel. This may represent an enteritis. 4. Diverticulosis without obvious inflammation. 5. Abnormal retroperitoneal soft tissue density surrounding the abdominal aorta extending into the pelvis along the iliac chains. This finding is unchanged and likely represents retroperitoneal fibrosis. This has improved compared to a more remote CT scan dated 09/26/2014. 6. Trace pleural effusions with bibasilar atelectasis. D/ / Abrahan Boyle MD / Abrahan Boyle MD Interpreting Provider: Abrahan Boyle MD Chest CTA 03/09/18 11:15 IMPRESSION: No evidence of pulmonary embolism. Mild patchy airspace opacity and minimal interstitial lung markings in both lung bases new or slightly increased from October 2017. Dependent edema and/or atelectasis is favored but cannot exclude subsegmental pneumonia. New 14 mm ground-glass nodule central right lung apex favored to represent inflammatory nodule as it was not present on October 2017 but cannot exclude malignancy therefore follow-up will be necessary. Stable bilateral axillary lymphadenopathy. Bilateral gynecomastia more prominent than October 2017. Persistent splenomegaly and small amount of fluid or ascites adjacent to the liver and spleen. RECOMMENDATIONS: Fleischner Society guidelines for follow-up and management of incidentally detected pulmonary nodules: Single Solid Nodule: Nodule size greater than 8 mm In a low-risk patient, consider CT at 3 months, PET/CT, or tissue sampling. In a high-risk patient, consider CT at 3 months, PET/CT, or tissue sampling. - Low risk patients include individuals with minimal or absent history of smoking and other known risk factors. - High risk patients include individuals with a history or smoking or known risk factors. Radiology 2017 http://pubs.rsna.org/doi/full/10.1148/radiol.[email or web address] D/ / Derick Davila MD / Derick Davila MD Interpreting Provider: Derick Davila MD Gallbladder Ultrasound 03/09/18 13:15 IMPRESSION: 1. Cholelithiasis with nonspecific gallbladder wall thickening. No sonographic Lorenzo's sign. Findings are likely related to underlying liver disease rather than acute cholecystitis. 2. Cirrhosis with stigmata of portal hypertension including ascites. D/ / 03/09/2018 15:02:41 Monica Ny MD / wilman Interpreting Provider: Monica Ny MD - Assessment and plan (1) Chest pain, rule out acute myocardial infarction Current Visit: Yes Status: Acute Assessment and plan: Serial cardiac troponins Cardiac monitoring Echocardiogram in am. Hx of VA and HF, BNP is 200 Nitroglycerin prn (2) Abdominal pain Current Visit: Yes Status: Acute Assessment and plan: RUQ pain likely related to his cholelithiasis. There was also GB wall thickening seen however the report indicated that it was likely from his liver disease and not a acute sonal. Total bili is 6.4 today. The patient see's Dr. Masters outpatient, spoke with Dr Floyd (exhaust emissions inspector) who will see the patient in the morning. No tylenol NPO tonight Qualifiers: Abdominal location: right upper quadrant Qualified Code(s): R10.11 - Right upper quadrant pain (3) Pneumonia Current Visit: Yes Status: Acute Assessment and plan: Opacities seen on CT of chest, due to the patient sob and fever it is likely PNA. Unsure if aspiration PNA or CAP. He was started on zosyn in the ED and will continue q8h. Monitor labs daily Incentive spirometry Oxygen to keep sats gt 92% Qualifiers: Pneumonia type: due to unspecified organism Laterality: bilateral Lung location: unspecified part of lung Qualified Code(s): J18.9 - Pneumonia, unspecified organism (4) Esophageal varices without bleeding Current Visit: No Status: Acute Assessment and plan: Cotrolled, Follow up with outpatient gastroenterology Qualifiers: Esophageal varices type: secondary Qualified Code(s): I85.10 - Secondary esophageal varices without bleeding (5) Type 2 diabetes mellitus Current Visit: Yes Status: Chronic Assessment and plan: Bs is 368, the patient goal while inpatient is under 200. Accu checks Q6H with insulin coverage. Monitor labs daily. 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 Fang is a 57 year old male All Systems PM: A 10-system review of systems was performed and is negative for pertinent findings except as documented above in the HPI. - Constitutional Vitals: Temp Pulse Resp BP Pulse Ox 98.4 F 97 16 119/68 93 03/09/18 19:24 03/09/18 19:24 03/09/18 19:24 03/09/18 19:24 03/09/18 19:24 Internal Med - H&P Results - Labs CBC & Chem 7: 03/09/18 10:38 03/09/18 10:38 Labs: Cardiac Enzymes 03/09/18 Range/Units 18:36 Troponin I 0.05 H* (< 0.04) ng/mL - Attending Attestation I have seen and examined the patient. I have performed my own physical examination. I have discussed the case with the admitting PAPERHANGER AND PAINTER. I agree with her assessment and plan as documented in her note. Briefly, patient presented to ED today with persistent RUQ pain after EGD 2 days ago. Troponin in ED was 0.05. Found to have bilateral pneumonia, possibly aspiration during EGD. GI has been consulted and will see patient. Will continue IV zosyn. DM with hyperglycemia, so will great with SSI Q6H. Will trend troponin x [address] on telemetry. Recheck labwork in AM. - Time Spent With Patient Total time spent is greater than 50% in coordination of care (as documented) at patient's floor/unit and/or counseling patient:
[2018-03-09] MEDS: Insulin LISPRO 300 UNITS/3 ML VIAL SQ SCH (18:44)
[2018-03-09] MEDS ORDERED: Ondansetron 4 MG/2 ML VIAL IVP PRN (19:58)
[2018-03-09] MEDS ORDERED: NON-FORMULARY MEDICATION 1 EACH EACH (Oxygen [Oxygen] 2 L) NS SCH (21:00)
[2018-03-09] MEDS: Sucralfate 1 GM TABLET PO SCH (21:34)
[2018-03-09] MEDS: Gabapentin 300 MG CAPSULE PO SCH (21:34)
[2018-03-09] MEDS: Insulin DETEMIR 100 UNIT/ML X5UNITS SQ SCH (21:35)
--- NOTE | 2018-03-09 22:07 | Electrocardiograph Report ---
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
[2018-03-09] MEDS: Piperacillin/Tazobactam 3.375 GM in 0.9 % Sodium Chloride Mini Bag 100 ML IVPB SCH (23:18)
[2018-03-10 01:16] LABS: Basophils % 0.3 %; Red Blood Count 4.51 M/mcL (4.19-5.50)
[2018-03-10 01:18] LABS: Eosinophils % 0.2 %; Hemoglobin 13.1 g/dL (12.9-16.9); Immature Granulocytes % 0.8 % (0-4); Lymphocytes # 0.6 K/mcL (0.6-4.6); Lymphocytes % 9.3 %; Mean Corpuscular Volume 90.9 fL (83.0-100.0); Mean Platelet Volume 10.8 fL (9.4-12.4); Monocytes # 0.9 K/mcL (0.0-1.3); Monocytes % 13.2 %; Red Cell Distribution Width 14.8 % (11.5-14.5); Segmented Neutrophils % 76.2 %
[2018-03-10 01:20] LABS: Platelet Count 63 K/mcL (140-400)
[2018-03-10 01:36] LABS: Calcium 9.1 mg/dL (8.6-10.3); Chol/HDL Ratio 3.4 (0-4.9); Magnesium 1.7 mg/dL (1.6-2.6); Potassium 5.5 mEq/L (3.5-5.1)
[2018-03-10 01:42] LABS: Platelet Estimate Decreased (Normal)
[2018-03-10] MEDS ORDERED: Insulin LISPRO 300 UNITS/3 ML VIAL SQ ONE (02:00)
[2018-03-10] MEDS ORDERED: *HR* Dextrose 50 % in Water (Syg) 50 ML SYRINGE IVP PRN (07:55)
[2018-03-10] MEDS ORDERED: D5% in Water 1,000 ML IVC PRN (07:55)
[2018-03-10] MEDS ORDERED: Dextrose Gel 15 GM/37.5 ML TUBE PO PRN ×2 (07:55)
[2018-03-10] MEDS ORDERED: NON-FORMULARY MEDICATION 1 EACH EACH (Pantoprazole Sodium [Protonix] 40 MG) PO SCH (09:00)
[2018-03-10] MEDS: Insulin LISPRO 300 UNITS/3 ML VIAL SQ SCH ×4 (09:14→17:55)
[2018-03-10] MEDS: Insulin DETEMIR 100 UNIT/ML X5UNITS SQ SCH ×2 (09:14→20:45)
[2018-03-10] MEDS: 0.9 % Sodium Chloride 1,000 ML IVC SCH ×2 (09:16→22:15)
[2018-03-10] MEDS: Piperacillin/Tazobactam 3.375 GM in 0.9 % Sodium Chloride Mini Bag 100 ML IVPB SCH ×2 (09:16→14:14)
[2018-03-10] MEDS: Sucralfate 1 GM TABLET PO SCH ×3 (09:19→20:45)
[2018-03-10] MEDS: Gabapentin 300 MG CAPSULE PO SCH ×2 (09:19→20:45)
[2018-03-10] MEDS: Furosemide 40 MG TABLET PO SCH (09:20)
[2018-03-10 09:51] LABS: Albumin/Globulin Ratio 1.4 (1.1-2.2); Bilirubin,Direct 1.4 mg/dL (0.0-0.2); Bilirubin,Indirect 3.3 mg/dL (0.0-1.2); Bilirubin,Total 4.7 mg/dL (0.3-1.0); Globulin 2.8 g/dL (2.4-3.5); Total Protein 6.8 g/dL (6.4-8.9)
--- NOTE | 2018-03-10 11:11 | Gastroenterology Consult Note ---
Date of Encounter: 03/10/18 Time of Encounter: 10:25 - Assessment and plan (1) Cholelithiasis Current Visit: Yes Status: Acute Assessment and plan: RUQ US shows cholelithiasis with nonspecific gallbladder wall thickening, which could be secondary to liver disease and not cholecystitis, and cirrhosis with stigmata of portal hypertension. Qualifiers: Cholelithiasis location: other site Biliary obstruction: without biliary obstruction Qualified Code(s): K80.80 - Other cholelithiasis without obstruction (2) RUQ pain Current Visit: Yes Status: Acute Assessment and plan: Recent EGD with large 35mm polyp removed. Consider EGD tomorrow to evaluate. (3) Esophageal varices without bleeding Current Visit: No Status: Acute Assessment and plan: Last EGD with Grade I varices, scars of previous banding, 35 mm polyp in the stomach benign, moderate to severe portal htb gastropathy Qualifiers: Esophageal varices type: secondary Qualified Code(s): I85.10 - Secondary esophageal varices without bleeding (4) Cirrhosis Current Visit: No Status: Acute Assessment and plan: MELD-Na 21, Child-Kenny class B. Total bili elevated at 6.4 on admission and AST/ ALT within normal limits. TB improved to 4.7, which is mostly indirect at 3.3. Last AFP 4 on 05/22/2017, check AFP today. RUQ US shows cholelithiasis with nonspecific gallbladder wall thickening and cirrhosis with stigmata of portal hypertension. Recommend 2-4 BMs per day, can start Lactulose PRN if needed. Qualifiers: Hepatic cirrhosis type: other cirrhosis Qualified Code(s): K74.69 - Other cirrhosis of liver - Time Spent With Patient Total time spent is greater than 50% in coordination of care (as documented) at patient's floor/unit and/or counseling patient: GI History of Present Illness - Data of Consult Patient: known to practice within the last 3 years Consult date: 03/10/18 Requesting Physician: Fermin Lui - Consult Narrative Reason for consult: RUQ pain, TB 6.4 History of present illness: Mr. Fang is a 57 year old male with PMHx of CLL, CHF, COPD, DM, GERD, HLD, HTN SD, esophageal varices, cirrhosis. EGD was completed 03/02 with a 35mm gastic polyp which was removed. The patient states he has not felt well since that time. He complains of RUQ pain, sob and mild chest tightness. The patient was found to have a distended GB in the ED which was visualized with a CT that showed choliliathiases with nonspecific gallbladder wall thickening. This was noted to likely be related to liver disease rather than an acute cholecystitis. Total bili elevated at 6.4 on admission and AST/ALT within normal limits. Chest CT showed no pulmonary embolus, a 14 mm nodule that was not present in Oct 2017 , and opacities that could represent PNA. The patient was started on Zosyn in the ED. Procedures: EGD 03/02/2018 Dr. Masters: Grade I varices, scars of previous banding, 35 mm polyp in the stomach benign, moderate to severe portal htb gastropathy, repeat EGD in 1 year. Colonoscopy 07/15/2017 Dr. Brown: Diverticulosis, two hypeplastic polyps. EGD 12/24/2016 Dr. Masters: Grade I varices, severe portal htn gastropathy, inflamed hyperplastic gastric polyp/benign; repeat EGD 1 year. EGD 07/30/2016 Dr. Masters: Grade 2 varices, portal htn gastropathy. EGD 06/13/2016 Dr. Masters: Grade 2 varices incompletely eradicated; gastric polyps ; portal htn gastropathy. Colonoscopy 03/26/2016 Dr. Brown: Enlarged prostate, diverticulosis, rectal varices, tubular adenoma and hyperplastic polyp. Colonoscopy 05/09/2015 Dr. Brown: Diverticulosis, multiple tubular adenoma and hyperplastic polyps. NSAIDs: None Anticoagulation: None Past Med Surg Social Fam HX - Past Medical History Medical history: cancer, CHF, COPD, diabetes, GERD, hyperlipidemia, hypertension , kidney stones, myocardial infarction Additional medical history: morbid obesity with BMI of 45-49 adult. history of colon polyps. stomach polyp removed. esophageal varicies banded. lymphatic leukemia Psychiatric history: depression - Past Surgical History Surgical History: LE stent(s) Additional surgical history: Hernia repair. Kidney stones. esophageal varicies. stomach polyp removed and clamp placed - Social History Smoking Status: Former smoker Smokeless Tobacco Status: No Alcohol use: none Drug use: none - Family History Mother Living Status: Hx Family Respiratory Disorders: Yes (COPD) Father Living Status: Hx Family Cancer: Yes (throat) - Gastrointestinal Gastrointestinal: Present: as per HPI - Constitutional Constitutional: as per HPI - EENT Eyes: as per HPI Ears: Present: as per HPI Nose, mouth and throat: Present: as per HPI - Cardiovascular Cardiovascular ROS: Present: as per HPI - Respiratory Respiratory IM: Present: as per HPI - Genitourinary Genitourinary: Absent: change in color, Urinary frequency - Neurological ROS Neurological GI: Present: as per HPI - Hematologic/Lymphatic Hematologic/Lymphatic pediatric: Present: as per HPI - Musculoskeletal Musculoskeletal ROS GI: Present: as per HPI - Integumentary Integumentary GI: Present: as per HPI - Psychiatric ROS Psychiatric GI: Present: as per HPI - Endocrine Endocrine IM: Present: as per HPI - Constitutional Vitals: Temp Pulse Resp BP Pulse Ox 97.4 F L 71 16 112/61 92 03/10/18 06:46 03/10/18 06:46 03/10/18 06:46 03/10/18 06:46 03/10/18 06:46 General appearance: Present: cooperative, A&O X 3, no acute distress, answers questions appropriately - Head Head exam: Present: atraumatic, normocephalic - Eye Eye exam: Present: scleral icterus - ENT ENT exam: Present: mucous membranes moist - Neck Neck exam general surgery: Present: normal inspection, trachea midline - Respiratory Respiratory exam: Present: decreased breath sounds, CTAB. Absent: rales, rhonchi - Cardiovascular Cardiovascular exam: Present: RRR, +S1, +S2 - GI/Abdominal GI/Abdominal exam: Present: distended, normal bowel sounds, soft, tenderness ( RUQ tenderness with palpation), no peritoneal signs. Absent: firm, guarding Additional comments: Obese - Rectal Rectal exam: Present: deferred - Extremities Exam Extremities exam: Present: warm - Neurological Exam Neurological exam: Present: no focal deficits - Psychiatric Psychiatric exam: Present: normal affect, normal mood - Skin Skin exam: Present: dry, intact, normal color, warm Results - Labs CBC & Chem 7: 03/10/18 00:57 03/10/18 00:57 Labs: Last Result Calcium 9.1 mg/dL (8.6-10.3) 03/10/18 00:57 Troponin I 0.04 ng/mL (< 0.04) H* 03/10/18 06:35 Triglycerides 166 mg/dL (< 150) H 03/10/18 00:57 Entire Visit Hgb 13.1 g/dL (12.9-16.9) 03/10/18 00:57 Hct 41.0 % (37.5-50.1) 03/10/18 00:57 PT 13.9 Seconds (9.4-12.1) H 03/09/18 10:38 Total Bilirubin 4.7 mg/dL (0.3-1.0) H 03/10/18 09:06 AST 25 Units/L (13-39) 03/10/18 09:06 ALT 32 Units/L (7-52) 03/10/18 09:06 Lipase 5 Units/L (11-82) L 03/09/18 10:38 - ABG ABG results: PT/INR, D-dimer PT 13.9 Seconds (9.4-12.1) H 03/09/18 10:38 Consult Discharge Plan - Plan Referrals: Derick Ellis DO [Primary Care Provider] -
[2018-03-10 11:19] LABS: Acinetobacter baumannii by PCR Not Detected (Not Detect); Candida albicans by PCR Not Detected (Not Detect); Candida glabrata by PCR Not Detected (Not Detect); Candida krusei by PCR Not Detected (Not Detect); Candida parapsilosis by PCR Not Detected (Not Detect); Candida tropicalis by PCR Not Detected (Not Detect); Enterococcus by PCR Not Detected (Not Detect); Escherichia coli by PCR Not Detected (Not Detect); Klebsiella oxytoca by PCR Not Detected (Not Detect); Klebsiella pneumoniae by PCR Not Detected (Not Detect); Pseudomonas aeruginosa by PCR Not Detected (Not Detect); Serratia marcescens by PCR Not Detected (Not Detect); Staphylococcus aureus by PCR Not Detected (Not Detect); Streptococcus agalactiae(B)PCR Not Detected (Not Detect); Streptococcus by PCR Not Detected (Not Detect); Streptococcus pneumoniae PCR Not Detected (Not Detect); Streptococcus pyogenes (A) PCR Not Detected (Not Detect)
[2018-03-10] MEDS ORDERED: Insulin LISPRO 300 UNITS/3 ML VIAL SQ SCH ×3 (12:00→21:00)
--- NOTE | 2018-03-10 13:40 | Internal Med Progress Note ---
Date of Encounter: 03/10/18 Time of Encounter: 13:38 - Assessment and plan (1) Cholelithiasis Current Visit: Yes Status: Acute Assessment and plan: Presented with right upper quadrant abdominal pain Right upper quadrant US shows cholelithiasis with nonspecific gallbladder wall thickening CBD without dilatation measuring 5 mm, no sonographic Lorenzo's sign Possibly secondary to liver disease and not cholecystitis He was also found cirrhosis with stigmata of portal hypertension including ascites GI seeing in consultation Qualifiers: Cholelithiasis location: other site Biliary obstruction: without biliary obstruction Qualified Code(s): K80.80 - Other cholelithiasis without obstruction (2) Abdominal pain Current Visit: Yes Status: Acute Qualifiers: Abdominal location: right upper quadrant Qualified Code(s): R10.11 - Right upper quadrant pain (3) Chest pain, rule out acute myocardial infarction Current Visit: Yes Status: Acute Assessment and plan: Presented with shortness of breath and mild chest tightness CXR shows pleural effusions, CTA chest shows pleural effusions and suspected pneumonia Mildly elevated troponin, peaked at 0.05, trending down. Likely due to demand ischemia TTE-LVEF 50%. Indeterminate diastolic function. RV is mildly dilated. Function appears low normal. Mild tricuspid regurgitation. No pulmonary hypertension. Small pericardial effusion located along the inferolateral wall of the LV. No evidence for tamponade on this study. ECG, sinus rhythm-inferior AR which is old, no changes when compared to prior ECG from 2016 Denies any current chest pain, still short of breath in setting of pneumonia (4) Pneumonia Current Visit: Yes Status: Acute Assessment and plan: presented with shortness of breath and mild chest tightness. On chronic oxygen 2.5 L nasal cannula. Requiring 4 L for respiratory support. CXR-trace bilateral pleural effusions and worsening of cardiomegaly CTA chest-negative for PE, mild patchy airspace opacity and minimal interstitial lung markings in both lung bases. New 14 mm groundglass nodule central right lung apex fever to represent inflammatory nodule but cannot rule out malignancy-follow up in 3 months; schedule prior to discharge Blood cultures growing GNR; Haemophilus influenzae Change antibiotic to daily Rocephin Continue respiratory support per nasal cannula; titrate as needed to maintain SPO2 greater than 92% Continuous oxygen monitoring Qualifiers: Pneumonia type: due to unspecified organism Laterality: bilateral Lung location: unspecified part of lung Qualified Code(s): J18.9 - Pneumonia, unspecified organism (5) Type 2 diabetes mellitus Current Visit: Yes Status: Chronic Assessment and plan: History of type 2 diabetes, currently hyperglycemic. Most recent blood glucose 393. Continue basal insulin at current dose, increase if hyperglycemia persists. Increase sliding scale to medium coverage and continue prandial dosing per home regimen. 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 Total bili 4.7 today, improving RUQ US shows cholelithiasis with nonspecific gallbladder wall thickening and cirrhosis with stigmata of portal hypertension Gastroenterology seeing patient in consultation. Recommendations to-4 BMs per day -Give 20 mg lactulose one time now Qualifiers: Hepatic cirrhosis type: other cirrhosis Qualified Code(s): K74.69 - Other cirrhosis of liver (7) Esophageal varices without bleeding Current Visit: Yes Status: Acute Assessment and plan: History of esophageal varices per recent egd endoscopy 03/02/18 Single 35mm sessile polyp removed and sent for biopsy Gastric polyp removed and sent for biopsy grade I esophageal varicies Gastroenterology seeing in consultation possible EGD in the morning Qualifiers: Esophageal varices type: secondary Qualified Code(s): I85.10 - Secondary esophageal varices without bleeding - Time Spent With Patient Total time spent is greater than 50% in coordination of care (as documented) at patient's floor/unit and/or counseling patient: 25 - 35 minutes - Subjective Interval history: Patient seen and examined at bedside today. No acute changes overnight. Continued to have shortness of breath above baseline. Also continue and have right upper quadrant pain in the setting of cholelithiasis - Constitutional Vitals: Temp Pulse Resp BP Pulse Ox 97.7 F 67 18 135/63 99 03/10/18 11:27 03/10/18 11:27 03/10/18 11:27 03/10/18 11:27 03/10/18 11:27 General appearance: Present: cooperative, A&O X 3, answers questions appropriately - Head Head exam: Present: atraumatic, normocephalic - Eye Eye exam: Present: PERRL, conjuntiva pink, sclera anicteric Pupils: Present: PERRL - Neck Neck exam general surgery: Present: supple, trachea midline. Absent: lymphadenopathy - Respiratory Respiratory exam: Present: decreased breath sounds, CTAB. Absent: accessory muscle use, rales, rhonchi, wheezes - Cardiovascular Cardiovascular exam: Present: RRR, +S1, +S2. Absent: diastolic murmur, gallop, rubs, systolic murmur - GI/Abdominal GI/Abdominal exam: Present: normal bowel sounds, soft, tenderness (RUQ), no peritoneal signs. Absent: distended - Extremities Exam Extremities exam: Present: warm, radial pulses palpable and symmetrical. Absent : calf tenderness, cyanotic, pedal edema - Neurological Exam Neurological exam: Present: CN II-XII intact, oriented X3, no focal deficits. Absent: pronater drift, facial droop, speech deficit - Skin Skin exam: Present: dry, intact Internal Medicine: Result - Labs CBC & Chem 7: 03/10/18 00:57 03/10/18 00:57 Labs: Short CBC 03/10/18 Range/Units 00:57 WBC 6.6 D (4.3-11.1) K/mcL Hgb 13.1 (12.9-16.9) g/dL Hct 41.0 (37.5-50.1) % Plt Count 63 L (140-400) K/mcL Neutrophils # 5.0 (1.6-8.9) K/mcL BMP 03/10/18 00:57 Sodium 131 L Potassium 5.5 H Chloride 94 L Carbon Dioxide 25 BUN 24 H Creatinine 1.51 H Glucose 504 H* Calcium 9.1 Cardiac Enzymes 03/09/18 03/10/18 03/10/18 Range/Units 18:36 00:57 06:35 Troponin I 0.05 H* 0.04 H* 0.04 H* (< 0.04) ng/mL Liver Function 03/10/18 Range/Units 09:06 Total Bilirubin 4.7 H (0.3-1.0) mg/dL Direct Bilirubin 1.4 H (0.0-0.2) mg/dL AST 25 (13-39) Units/L ALT 32 (7-52) Units/L Alkaline Phosphatase 83 (34-104) Units/L Albumin 4.0 (3.5-5.7) g/dL - ABG Interpretation ABG results: PT/INR, D-dimer PT 13.9 Seconds (9.4-12.1) H 03/09/18 10:38 Consult Discharge Plan - Plan Referrals: Derick Ellis DO [Primary Care Provider] -
[2018-03-10] MEDS ORDERED: Lactulose Oral Soln 20 GM/30 ML UDC PO ONE (14:24)
[2018-03-10] MEDS: cefTRIAXone 1,000 MG in Water for inj. (sterile) 20 ML 10 ML IVP SCH (17:55)
--- NOTE | 2018-03-10 19:52 | Electrocardiograph Report ---
[address] [place] [address] Test Date: 2018-03-10 Pat Name: Jame Fang Department: 113 Room: 3B Gender: M Diploma Maker: : [id number] Requested By: Mandi Lee Order Number: [id number] Reading MD: Naldo Zurita Measurements Intervals [place] Rate: 72 P: [place]: 0 QRS: 55 QRSD: 113 T: -5 QT: 402 QTc: 426 Interpretive Statements SUPRAVENTRICULAR RHYTHM PROBABLE INFERIOR MYOCARDIAL INFARCTION, OF INDETERMINATE AGE POSSIBLE LATERAL MO, AGE UNDETERMINED Electronically Signed On 03-10-2018 19:50:53 EDT by Naldo Zurita
[2018-03-11] MEDS ORDERED: *HR* Etomidate 20 MG/10 ML AMPUL IVP ONE ×2 (03:00→08:23)
[2018-03-11] MEDS ORDERED: *HR* Midazolam HCl 2 MG/2 ML VIAL IVP ONE (03:00)
[2018-03-11] MEDS ORDERED: Lacri-Lube 3.5 GM TUBE BOTH EYES PRN (03:42)
[2018-03-11 04:01] LABS: ABG Base Excess -3 mEq/L (-2 to 3); ABG HCO3 26 mEq/L (21-27); ABG Oxygen Saturation 93 % (95-98); ABG PCO2 62 mmHg (35-45); ABG PH 7.22 pH Units (7.32-7.45); ABG PO2 81 mmHg (85-104); ABG TCO2 27 mEq/L (20-26); Blood Gas Modality PRVC; Blood Gas PEEP 5 cm H2O; Blood Gas Respiration Rate 14; Blood Gas VT 450 cc
[2018-03-11] MEDS ORDERED: Ringers Solution, Lactated 1,000 ML IVC SCH (04:15)
[2018-03-11 04:19] LABS: Basophils % 0.5 %; Nucleated Red Blood Cells 0.4 /100 WBC (0)
[2018-03-11 04:21] LABS: Basophils # 0.1 K/mcL (0.0-0.2); Eosinophils % 0.1 %; Hematocrit 40.5 % (37.5-50.1); Hemoglobin 12.6 g/dL (12.9-16.9); Immature Granulocytes % 1.7 % (0-4); Immature Platelets 6.6 % (1.1-6.1); Lymphocytes # 0.9 K/mcL (0.6-4.6); Lymphocytes % 8.2 %; Mean Corpuscular HGB Conc 31.1 g/dL (31.6-35.5); Mean Corpuscular Hemoglobin 28.8 pg (28.0-33.3); Mean Corpuscular Volume 92.5 fL (83.0-100.0); Mean Platelet Volume 10.3 fL (9.4-12.4); Monocytes # 0.9 K/mcL (0.0-1.3); Monocytes % 8.1 %; Neutrophils # 9.2 K/mcL (1.6-8.9); Platelet Count 100 K/mcL (140-400); Red Blood Count 4.38 M/mcL (4.19-5.50); Red Cell Distribution Width 15.7 % (11.5-14.5); Segmented Neutrophils % 81.4 %
[2018-03-11 04:28] LABS: INR 1.2; Prothrombin Time 12.7 Seconds (9.4-12.1)
[2018-03-11 04:31] LABS: Activated Partial Thrombo Time 34.3 Seconds (26.0-36.0)
--- NOTE | 2018-03-11 04:31 | Procedure Note ---
<Tasia Gandhi - Last Filed: 03/11/18 04:52> Date of procedure: 03/11/18 Pre-op diagnosis: acute respiratory failure Post-op diagnosis: same Procedure: Patient was in respiratory failure requiring intubation. This was an emergency proceedure. Time out performed: Yes Sedative: Etomidate 20mg IVP, Versed 2mg IVP Laryngoscope: Mac ET tube size: 8.0 ET tube uncuffed: No Tube secured depth (cm): 21cm Tube secured location: lips Tube placement confirmation: visualized tube passing through cords, equal breath sounds bilaterally, no breath sounds over epigastrium, confirmation by capnometry Patient tolerated procedure: well Intubation complications: none Resident physician: Tasia Gandhi DO Attending physician: Dr. Emanuel Mueller Anesthesia: IV sedation (Etomidate 20mg, Versed 2mg ) Was there an recreational assistant present: No Estimated blood loss (cc): 0 Specimen: none Pathology: none sent Condition: critical Disposition: ICU <Emanuel Mueller - Last Filed: 03/11/18 05:10> Procedure: I was present and directly supervised ETT placement per Dr. Gandhi. Pre- medication as above. Dr. Gandhi successfully intubated on first attempt, and I personally auscultated bilateral breath sounds after intubation.
[2018-03-11] MEDS: FentaNYL (PF) 1,000 MCG in 0.9 % Sodium Chloride 80 ML IVC SCH ×2 (04:36→16:00)
[2018-03-11 04:39] LABS: Albumin 3.8 g/dL (3.5-5.7); Albumin/Globulin Ratio 1.2 (1.1-2.2); Bilirubin,Indirect 1.6 mg/dL (0.0-1.2); Bilirubin,Total 2.6 mg/dL (0.3-1.0); Globulin 3.1 g/dL (2.4-3.5); Total Protein 6.9 g/dL (6.4-8.9)
[2018-03-11 04:40] LABS: Calcium 8.5 mg/dL (8.6-10.3); Potassium 6.3 mEq/L (3.5-5.1)
--- NOTE | 2018-03-11 04:40 | Event Note ---
Date of Encounter: 03/11/18 Time of Encounter: 03:05 I responded to a rapid response call on this patient. Upon arrival, patient had palpable pulse, stable blood pressure, and a regular rhythm on telemetry. He was unresponsive and frothing at the mouth and unable to protect his airway. Patient received bag mask ventilation for respiratory therapy while we performed a quick assessment. He was placed on monitor and continued to receive bag mask ventilation while I performed a quick assessment and spoke with patient's . Patient never lost a pulse and maintained adequate blood pressure while he was being ventilated by respiratory therapy as noted above. O2 sats initially were in the low 80s and improved to upper 90s with bag mask ventilation. Despite verbal and painful sternal rub/stimuli, patient had minimal purposeful response to me. Furthermore, he was not able to protect his airway and did not have a gag reflex with deep suctioning. We therefore decided to proceed with intubation electively to establish an airway and then transferred him to ICU. Patient was intubated successfully on the first attempt by Dr. Gandhi under my direct supervision. Patient was premedicated with 20 mg of etomidate and 2 mg of Versed IV. I confirmed ET tube placement clinically by auscultating bilateral breath sounds and he had positive CO2 detector on his ET tube. Once airway was secured, patient was moved to CAT scan for stat CT the head and then transferred to the ICU. In the ICU, patient was placed on mechanical ventilator and hooked up to monitors and we performed a stat EKG. EKG was concerning for an evolving STEMI of the lateral leads. I called cardiology and spoke with Dr. Zurita regarding EKG. He reviewed EKG, and we discussed the case together. He agrees the patient does have an evolving STEMI, but given his thrombocytopenia, cirrhosis, known esophageal varices, and septic state, Dr. Zurita felt that acute intervention would be more harmful than helpful at this time. He recommended proceeding with aspirin administration, holding off on heparin due to high risk of bleeding, and ongoing ICU care and management. He and his colleagues will see patient in the morning and provide further guidance. He does not recommend heart catheterization at this time. I reviewed his chart after patient stabilized in ICU and noted that he is septic from pneumonia and has Haemophilus Influenza growing in his blood culture. We will broaden his antibiotics to cover this organism as well as other organisms. We will gently hydrate him to preserve his kidney function. We will consult lens blocker, fertilizer loader, and drip pumper to assist with care and management in ICU. I discussed all the above at length with patient's , son, and daughter-in- law. On exam, current vitals include the following: Temperature 96.2; pulse 83; blood pressure 126/81; O2 sats 94% on 100% FiO2/mechanical ventilator CXR: ETT in place Head CT-- negative HEENT: Positive bilateral pupillary response, ET tube secured Exam: Crackles diffusely predominantly left side. Bilateral breath sounds auscultated. Regular rhythm and rate, distant heart sounds, and no murmurs appreciated. Abdomen: Soft, obese, hypoactive bowel sounds. Extremities: Peripheral mottling with cold extremities and delayed cap refill Impression: 1. Acute respiratory failure 2. Pneumonia with sepsis 3. Lateral wall STEMI 4. Cirrhosis complicated by thrombocytopenia and esophageal varices Plan: 1. Intubation and mechanical ventilation for ongoing respiratory support. Consult lens blocker for ICU management. 2. IV fluids, antibiotics, aerosols, and IV hydrocortisone for treatment of sepsis and pneumonia. Patient may need IV pressors for hemodynamic support if he has blood pressure instability. 3. Rectal aspirin given for his STEMI. Heparin on hold until further advice per cardiology. Presently cardiology does not recommend heparinization. 4. Consult cardiology, gastroenterology, and pulmonology for ongoing supportive measures. 5. NG/OG tube not placed due to known esophageal varices. May need to have one placed endoscopically per GI. Total of 70 minute critical care time (including ETT) spent thus far stabilizing , assessing, consulting with cardiology, and treating patient.
[2018-03-11] MEDS ORDERED: *HR* Dextrose 50 % in Water (Syg) 50 ML SYRINGE IVP ONE (04:49)
[2018-03-11] MEDS ORDERED: Albuterol Neb 1.25 MG/3 ML VIAL IH ONE (04:49)
[2018-03-11] MEDS ORDERED: Sodium Bicarbonate 50 MEQ/50 ML VIAL IVP ONE (04:49)
[2018-03-11] MEDS ORDERED: Insulin Human Regular 10 UNIT in 0.9 % Sodium Chloride 10 ML IV ONE (04:49)
[2018-03-11] MEDS ORDERED: 0.9 % Sodium Chloride 1,000 ML IVC SCH (05:00)
[2018-03-11] MEDS ORDERED: Albuterol 2.5 MG/3 ML NEBULIZER IH ONE (05:02)
[2018-03-11] MEDS: Hydrocortisone Sodium Succ 100 MG/2 ML VIAL IVP SCH ×2 (05:38→09:58)
[2018-03-11] MEDS: Dexmedetomidine HCl 400 MCG/100 ML MLS IVC SCH ×2 (05:43→12:26)
[2018-03-11] MEDS: Lacri-Lube 3.5 GM TUBE BOTH EYES SCH ×5 (05:43→19:48)
--- NOTE | 2018-03-11 06:04 | Event Note ---
Date of Encounter: 03/11/18 Time of Encounter: 06:00 - Cardiology Event Note Contacted by Dr. Mueller [phone] regarding EKG changes concerning for lateral STEMI. Patient with PNA, bacteremia, sepsis and history of cirrhosis with thrombocytopenia, esophageal varices (last EGD ~2 years ago), and baseline coagulopathy. He became unresponsive and required intubation. Given comorbids, recommend conservative management with medical therapy and supportive care. As lateral IA is relatively low acuity, will continue conservative therapies as aggressive anticoagulation and glazier structural glass antiplatelet therapy appears to be risk>benefit. Dr. Mueller will kindly discuss with family, and call if there are any concerns. Cardiology consultation team will continue to follow.
[2018-03-11 06:35] LABS: Calcium 8.1 mg/dL (8.6-10.3); Potassium 5.5 mEq/L (3.5-5.1)
--- NOTE | 2018-03-11 07:49 | Pulmonology Consult Note ---
<Miguel Molina - Last Filed: 03/11/18 11:35> Date of Encounter: 03/11/18 Assessment and Plan (1) Acute respiratory failure with hypercapnia Current Visit: Yes Status: Acute ABGs show respiratory acidosis. 93 %O2 on mech vent. - Repeat ABGs this afternoon. (2) Pneumonia Current Visit: Yes Status: Acute CXR shows multifocal left lower lobe atelectasis with PNA. WBC has increased from 6.6 up to 11.3. Afebrile overnight. Currently on recephin day #2, zosyn day #1, and vacn day #1. Blood cultures are positive for Haemophilus. Meets sepsis criteria with leukocytosis and elevated creatinine. - Discontinue rocpehin. - Continue zosyn and vancomycin. - Continue to trend WBC. D/ / Abrahan Boyle MD / Abrahan Boyle MD Interpreting Provider: Abrahan Boyle MD Chest CTA 03/09/18 11:15 IMPRESSION: No evidence of pulmonary embolism. Mild patchy airspace opacity and minimal interstitial lung markings in both lung bases new or slightly increased from October 2017. Dependent edema and/or atelectasis is favored but cannot exclude subsegmental pneumonia. New 14 mm ground-glass nodule central right lung apex favored to represent inflammatory nodule as it was not present on October 2017 but cannot exclude malignancy therefore follow-up will be necessary. Stable bilateral axillary lymphadenopathy. Bilateral gynecomastia more prominent than October 2017. Persistent splenomegaly and small amount of fluid or ascites adjacent to the liver and spleen. RECOMMENDATIONS: Fleischner Society guidelines for follow-up and management of incidentally detected pulmonary nodules: Single Solid Nodule: Nodule size greater than 8 mm In a low-risk patient, consider CT at 3 months, PET/CT, or tissue sampling. In a high-risk patient, consider CT at 3 months, PET/CT, or tissue sampling. - Low risk patients include individuals with minimal or absent history of smoking and other known risk factors. - High risk patients include individuals with a history or smoking or known risk factors. Radiology 2017 http://pubs.rsna.org/doi/full/10.1148/radiol.[email or web address] D/ / Derick Davila MD / Derick Davila MD Interpreting Provider: Derick Davila MD Chest X-Ray 03/11/18 03:19 IMPRESSION: Progressive multifocal left lung atelectasis and/or pneumonia with possible developing right upper lobe airspace disease. D/ / Aiden Moffett MD / Aiden Moffett MD Interpreting Provider: Aiden Moffett MD Qualifiers: Pneumonia type: due to unspecified organism Laterality: bilateral Lung location: unspecified part of lung Qualified Code(s): J18.9 - Pneumonia, unspecified organism (3) STEMI (ST elevation myocardial infarction) Current Visit: Yes Status: Acute Patient was found to have a lateral STEMI on EKG last night. Continues to have STEMI on telemetry. Rectal ASA was given last ngiht. Cardiology consulted and current recommendation is to hold off on acute intervention and holding off on the heparin drip given patient's sepsis, PNA, and history of esophageal varicies. Tropnins continue to be elevated from admission. Last troponin this morning at 0.04. - Continue rectal ASA. Will switch to PO once OG tube in place. - Continue to hold heparin drip. (4) Decompensation of cirrhosis of liver Current Visit: Yes Status: Acute History of cirrhosis. MELD-Na 21, Child-Kenny class B. Initial T. bili level of 6.4 upon arrival, currently improved to 2.1. RUQ US shows cholelithiasis with nonspecific gallbladder wall thickening and cirrhosis with stigmata of portal hypertension. CT shows nodularity of the liver. Ammonia level at 115. - 200 mg Lactulose rectal two does today. Recheck ammonia level tomorrow. Abdomen/Pelvis CT 03/09/18 11:15 IMPRESSION: 1. Distended gallbladder. This could be due to a prolonged fasting state. I would suggest clinical correlation. Further evaluation with ultrasound is suggested to evaluate for any gallbladder wall thickening or pericholecystic fluid. 2. Nodular appearance to the liver likely representing cirrhosis with hepatosplenomegaly and sequela of portal hypertension. 3. Abnormal gas-filled mildly dilated loops of distal small bowel. This may represent an enteritis. 4. Diverticulosis without obvious inflammation. 5. Abnormal retroperitoneal soft tissue density surrounding the abdominal aorta extending into the pelvis along the iliac chains. This finding is unchanged and likely represents retroperitoneal fibrosis. This has improved compared to a more remote CT scan dated 09/26/2014. 6. Trace pleural effusions with bibasilar atelectasis. D/ / Abrahan Boyle MD / Abrahan Boyle MD Interpreting Provider: Abrahan Boyle MD Gallbladder Ultrasound 03/09/18 13:15 IMPRESSION: 1. Cholelithiasis with nonspecific gallbladder wall thickening. No sonographic Lorenzo's sign. Findings are likely related to underlying liver disease rather than acute cholecystitis. 2. Cirrhosis with stigmata of portal hypertension including ascites. D/ / 03/09/2018 15:02:41 Monica Ny MD / wilman Interpreting Provider: Monica Ny MD (5) Hepatic encephalopathy Current Visit: Yes Status: Acute Ammonia level of 115. Patient was able to follow commands earlier this morning but became unresponsive shortly afterwards. - See plan above. (6) Esophageal varices without bleeding Current Visit: Yes Status: Acute History of esophageal varices per recent egd. endoscopy 03/02/18 Single 35mm sessile polyp removed and sent for biopsy. Gastric polyp removed and sent for biopsy. grade I esophageal varicies Gastroenterology seeing in consultation. Hemoglobin stable at 12.6. No signs of hemoptysis or hematemesis. - No plans for EGD/OG tube at this point given status of sepsis, PNA, acute respiratory failure, and decompensated cirrhosis. Qualifiers: Esophageal varices type: secondary Qualified Code(s): I85.10 - Secondary esophageal varices without bleeding (7) Thrombocytopenia Current Visit: Yes Status: Acute Secondary to decompensated liver cirrhosis. Platelet level has been improving since yesterday from 63 up to 100. (8) ELLIOT (acute kidney injury) Current Visit: Yes Status: Acute Baseline creatinine from 0.9-1.0. Current creatiine at 4.08. ELLIOT in setting of sepsis, PNA, STEMI, and contrast nephropathy. Concern for hepatorenal syndrome. Patient was given octrotide and albumin. Nephrology was consulted. Patient leann be started on CVVH. - avoid nephrotoxins. - Accurate I/O's. (9) Hyperkalemia Current Visit: Yes Status: Acute Secondary to ELLIOT. Was at 6.3 yesterday. Given kayexalate and improved to 5.5 today. - Patient to be on [facility] dialysis later today. (10) DVT prophylaxis Current Visit: Yes Status: Acute Heparin 5000 U SQ BID. History of Present Illness Consult date: 03/11/18 Requesting physician: Emanuel Mueller Reason for consult: dyspnea Chief complaint: SOB History of present illness: Patient is a 57 M with a PMH of esophageal varicies, liver cirrhosis, CHF, HTN, and DM type I that presented on 03/09/18 for RUQ pain. Gallbladder U/S found the patient to have evidence of cholelithiasis with nonspecific gallbladder thickening. U/S also showed evidence of cirrhosis with stigmata of portal HTN including ascites. Abdominal CT showed a midular appearance to the liver further supporting evidence of cirrhosis with hepatosplenomegaly. Chest CT showed dependent edema and atelectasis with possible PNA. His T. Bili on admission was 6.4, likely more related to his liver disease and not acute cholecystitis. Last night a rapid reponse was called where patient's O2 saturation was falling to the low 80's. Patient was minimally responsive to verbals commands and over concerns of not being able to protect his airway due to no gag reflex, patient has intubated and transferred to the ICU. He was placed on a mechanical ventilator. EKG performed showed a lateral STEMI. Cardiology was consult and they stated that acute intervention would not be recommended now due to the patient's cirrhosis, thrombocytopenia and history of esophageal varicies. He was started on ASA and heparin drip was held off due to high risk of bleeding. When seen today, a limited history was obtained due to patient being intubated and sedated. He admits to chest pain since last night. He rates it as a 5/10 with no radiation. He admits to abdominal pain but was unable to describe location before becoming unresponsive. Past Med Surg Social Fam HX - Past Medical History Medical history: cancer, CHF, COPD, diabetes, GERD, hyperlipidemia, hypertension , kidney stones, myocardial infarction Additional medical history: morbid obesity with BMI of 45-49 adult. history of colon polyps. stomach polyp removed. esophageal varicies banded. lymphatic leukemia Psychiatric history: depression - Past Surgical History Surgical History: LE stent(s) Additional surgical history: Hernia repair. Kidney stones. esophageal varicies. stomach polyp removed and clamp placed - Social History Smoking Status: Former smoker Smokeless Tobacco Status: No Alcohol use: none Drug use: none - Family History Mother Living Status: Hx Family Respiratory Disorders: Yes (COPD) Father Living Status: Hx Family Cancer: Yes (throat) Medications and Allergies ALPRAZolam [Xanax] 1 mg PO BID PRN 05/09/15 [History] Atorvastatin Calcium [Lipitor] 20 mg PO HS 05/09/15 [History] Metformin HCl [Glucophage] 1,000 mg PO BID 05/09/15 [History] Metoprolol [Lopressor] 75 mg PO BID 05/09/15 [History] Nitroglycerin [Nitrolingual] 4.9 gm TL AD PRN 05/09/15 [History] Oxygen 2 l NS HS 03/26/16 [History] Spironolactone [Aldactone] 100 mg PO DAILY 03/26/16 [History] OxyCODONE/APAP 10/325 [Percocet 10/325] 1 tab PO Q6H PRN 07/30/16 [History] Esomeprazole Magnesium [Nexium] 40 mg PO DAILY 12/24/16 [History] Furosemide [Lasix] 40 mg PO DAILY 12/24/16 [History] Insulin Glargine,Hum.rec.anlog [Lantus Solostar] 50 unit SQ BID 12/24/16 [ History] Insulin Regular, Human [Novolin R] 20 unit SQ TIDWM 04/28/17 [History] Prochlorperazine Maleate [Compazine] 1 tab PO Q6HR PRN #30 tablet 05/07/17 [Rx] Gabapentin [Neurontin] 300 mg PO BID 07/15/17 [History] Levothyroxine [Synthroid] 88 mcg PO 30 #30 tablet 11/23/17 [Rx] Pantoprazole Sodium [Protonix] 40 mg PO DAILY 03/09/18 [History] Sucralfate [Carafate] 1 gm PO TID 03/09/18 [History] 3 Allergy/AdvReac Type Severity Reaction Status Date / Time naproxen Allergy Mild Hives Verified 03/09/18 09:41 rituximab Allergy Mild Hives Verified 03/09/18 09:41 JUAN RAMON Inhibitors AdvReac Mild NECK PAIN Verified 03/09/18 09:41 cefdinir AdvReac Mild Dizziness Verified 03/09/18 09:41 hydrocodone AdvReac Mild Vomiting Verified 03/09/18 09:41 levofloxacin AdvReac Mild Dizziness Verified 03/09/18 09:41 ramipril [From Altace] AdvReac Mild NECK PAIN Verified 03/09/18 09:41 tramadol AdvReac Mild Nausea Verified 03/09/18 09:41 doxycycline AdvReac Vomiting Verified 03/09/18 09:41 ROS unobtainable: due to endotracheal tube (02/04. No radiation. Since last night. ) All Systems: The remainder of the systems were reviewed and are negative - Cardiovascular Cardiovascular: chest pain - Gastrointestinal Gastrointestinal: abdominal pain Physical Examination Vital Signs: Vital Signs, Last 4 Hours Temp Pulse Resp BP Pulse Ox 03/11/18 06:00 62 18 91/51 96 03/11/18 05:14 21 92/58 97 03/11/18 05:00 60 18 92/58 96 03/11/18 04:36 83 126/81 69 03/11/18 04:00 96.2 F L 56 22 95/59 94 General appearance: other (Patient was able to follow commands for a little bit and then went unresponsive ) Eyes: icteric Auscultation: bilateral: rhonchi (Mild) Cardiovascular: other (Tachycardia ) Gastrointestinal: normoactive bowel sounds, tender (Unable to assess severity or location due to mental status. ), non-distended Integumentary: normal Extremities: no cyanosis, no edema, no clubbing, pink and warm, pulses normal Musculoskeletal: no deformities unable to assess due to mental status other (Unable to assess due to sedation. ) Ventilator Settings Ventilator Settings: Ventilator Settings, Last 8 Hours Ventilator Tidal Volume 400 Setting Ventilator Tidal Volume 400 Setting Ventilator Tidal Volume 400 Setting Ventilator Tidal Volume 450 Setting Ventilator Tidal Volume 450 Setting Ventilator Respiratory Rate 18 Setting Ventilator Respiratory Rate 18 Setting Ventilator Respiratory Rate 18 Setting Ventilator Respiratory Rate 14 Setting Ventilator Respiratory Rate 14 Setting Actual Respiratory Rate 21 Actual Respiratory Rate 17 Positive End Expiratory 8 Pressure Positive End Expiratory 8 Pressure Positive End Expiratory 8 Pressure Positive End Expiratory 5 Pressure Positive End Expiratory 5 Pressure Peak Inspiratory Airway 28 Pressure Peak Inspiratory Airway 26 Pressure Peak Inspiratory Airway 25 Pressure Peak Inspiratory Airway 30 Pressure Results - Laboratory Findings CBC and BMP: 03/11/18 09:56 03/11/18 09:56 ABG ABG pH 7.22 pH Units (7.32-7.45) L 03/11/18 03:57 ABG pCO2 62 mmHg (35-45) H 03/11/18 03:57 ABG pO2 81 mmHg (85-104) L 03/11/18 03:57 ABG O2 Saturation 93 % (95-98) L 03/11/18 03:57 PT/INR, D-dimer PT 12.7 Seconds (9.4-12.1) H 03/11/18 03:57 Abnormal lab findings: Abnormal lab results WBC 11.3 K/mcL (4.3-11.1) H D 03/11/18 03:57 Hgb 12.6 g/dL (12.9-16.9) L 03/11/18 03:57 MCHC 31.1 g/dL (31.6-35.5) L 03/11/18 03:57 RDW 15.7 % (11.5-14.5) H 03/11/18 03:57 Plt Count 100 K/mcL (140-400) L D 03/11/18 03:57 Band Neutrophils % 16.0 % (0-4) H 03/09/18 10:38 Metamyelocytes % 10.0 % (0) H 03/09/18 10:38 Neutrophils # 9.2 K/mcL (1.6-8.9) H 03/11/18 03:57 Nucleated RBCs/100 WBC 0.4 /100 WBC (0) H 03/11/18 03:57 Reactive Lymphocytes Present (Not Present) A 03/09/18 10:38 Platelet Estimate Decreased (Normal) L 03/10/18 00:57 Immature Plt Fraction 6.6 % (1.1-6.1) H 03/11/18 03:57 PT 12.7 Seconds (9.4-12.1) H 03/11/18 03:57 ABG pH 7.22 pH Units (7.32-7.45) L 03/11/18 03:57 ABG pCO2 62 mmHg (35-45) H 03/11/18 03:57 ABG pO2 81 mmHg (85-104) L 03/11/18 03:57 ABG Total CO2 27 mEq/L (20-26) H 03/11/18 03:57 ABG O2 Saturation 93 % (95-98) L 03/11/18 03:57 ABG Base Excess -3 mEq/L (-2 to 3) L 03/11/18 03:57 Sodium 131 mEq/L (136-145) L 03/11/18 06:02 Potassium 5.5 mEq/L (3.5-5.1) H 03/11/18 06:02 Chloride 97 mEq/L (98-107) L 03/11/18 06:02 BUN 58 mg/dL (6-20) H 03/11/18 06:02 Creatinine 4.02 mg/dL (0.70-1.30) H 03/11/18 06:02 Est GFR ( Amer) 19 (> 60) L 03/11/18 06:02 Est GFR (Non-Af Amer) 16 (> 60) L 03/11/18 06:02 Glucose 312 mg/dL (70-105) H 03/11/18 06:02 POC Glucose 294 mg/dL (70-99) H 03/10/18 19:58 Calcium 8.1 mg/dL (8.6-10.3) L 03/11/18 06:02 Total Bilirubin 2.6 mg/dL (0.3-1.0) H 03/11/18 03:57 Direct Bilirubin 1.0 mg/dL (0.0-0.2) H 03/11/18 03:57 Indirect Bilirubin 1.6 mg/dL (0.0-1.2) H 03/11/18 03:57 AST 47 Units/L (13-39) H 03/11/18 03:57 Ammonia 115 mcmol/L (16-53) H 03/11/18 03:57 Troponin I 0.05 ng/mL (< 0.04) H* 03/11/18 03:57 B-Natriuretic Peptide 755 pg/mL (Less than 100) H 03/10/18 00:57 Triglycerides 166 mg/dL (< 150) H 03/10/18 00:57 VLDL Cholesterol, Calc 33 mg/dL (< 31) H 03/10/18 00:57 HDL Cholesterol 33 mg/dL (40-59) L 03/10/18 00:57 Lipase 5 Units/L (11-82) L 03/09/18 10:38 Ur Specific [place] > 1.030 (1.010-1.025) H 03/09/18 10:58 Urine Protein 30 mg/dL (Neg-Trace) H 03/09/18 10:58 Urine Glucose (UA) >=1000 mg/dL (Normal) H 03/09/18 10:58 Urine Ketones Trace mg/dL (Negative) H 03/09/18 10:58 Urine Blood Trace (Negative) H 03/09/18 10:58 H. influenzae (PCR) DETECTED (Not Detect) A 03/09/18 11:58 - Clinical Findings Intake & Output: Intake & Output 03/10/18 03/10/18 03/11/18 15:59 23:59 07:59 Intake Total 100 / 100 1030 / 1030 1010 / 1010 Balance 100 / 100 1030 / 1030 1010 / 1010 Consult Discharge Plan - Plan Referrals: Derick Ellis DO [Primary Care Provider] - <Kartik Heath - Last Filed: 03/11/18 15:41> Date of Encounter: 03/11/18 Time of Encounter: 08:21 All Systems: The remainder of the systems were reviewed and are negative Physical Examination Vital Signs: Vital Signs, Last 4 Hours Temp Pulse Resp BP Pulse Ox 03/11/18 07:52 62 03/11/18 07:51 98.2 F 62 18 93/48 90 03/11/18 07:00 98.2 F 62 18 93/48 90 03/11/18 06:00 62 18 91/51 96 03/11/18 05:14 21 92/58 97 03/11/18 05:00 60 18 92/58 96 06/14/18 04:36 83 126/81 69 Ventilator Settings Ventilator Settings: Ventilator Settings, Last 8 Hours Ventilator Tidal Volume 400 Setting Ventilator Tidal Volume 400 Setting Ventilator Tidal Volume 400 Setting Ventilator Tidal Volume 400 Setting Ventilator Tidal Volume 450 Setting Ventilator Tidal Volume 450 Setting Ventilator Respiratory Rate 18 Setting Ventilator Respiratory Rate 18 Setting Ventilator Respiratory Rate 18 Setting Ventilator Respiratory Rate 18 Setting Ventilator Respiratory Rate 14 Setting Ventilator Respiratory Rate 14 Setting Actual Respiratory Rate 18 Actual Respiratory Rate 21 Actual Respiratory Rate 17 Positive End Expiratory 8 Pressure Positive End Expiratory 8 Pressure Positive End Expiratory 8 Pressure Positive End Expiratory 8 Pressure Positive End Expiratory 5 Pressure Positive End Expiratory 5 Pressure Peak Inspiratory Airway 24 Pressure Peak Inspiratory Airway 28 Pressure Peak Inspiratory Airway 26 Pressure Peak Inspiratory Airway 25 Pressure Peak Inspiratory Airway 30 Pressure Results - Laboratory Findings CBC and BMP: 03/11/18 09:56 03/11/18 12:08 ABG ABG pH 7.22 pH Units (7.32-7.45) L 03/11/18 03:57 ABG pCO2 62 mmHg (35-45) H 03/11/18 03:57 ABG pO2 81 mmHg (85-104) L 03/11/18 03:57 ABG O2 Saturation 93 % (95-98) L 03/11/18 03:57 PT/INR, D-dimer PT 12.7 Seconds (9.4-12.1) H 03/11/18 03:57 Abnormal lab findings: Abnormal lab results WBC 11.3 K/mcL (4.3-11.1) H D 03/11/18 03:57 Hgb 12.6 g/dL (12.9-16.9) L 03/11/18 03:57 MCHC 31.1 g/dL (31.6-35.5) L 03/11/18 03:57 RDW 15.7 % (11.5-14.5) H 03/11/18 03:57 Plt Count 100 K/mcL (140-400) L D 03/11/18 03:57 Band Neutrophils % 16.0 % (0-4) H 03/09/18 10:38 Metamyelocytes % 10.0 % (0) H 03/09/18 10:38 Neutrophils # 9.2 K/mcL (1.6-8.9) H 03/11/18 03:57 Nucleated RBCs/100 WBC 0.4 /100 WBC (0) H 03/11/18 03:57 Reactive Lymphocytes Present (Not Present) A 03/09/18 10:38 Platelet Estimate Decreased (Normal) L 03/10/18 00:57 Immature Plt Fraction 6.6 % (1.1-6.1) H 03/11/18 03:57 PT 12.7 Seconds (9.4-12.1) H 03/11/18 03:57 ABG pH 7.22 pH Units (7.32-7.45) L 03/11/18 03:57 ABG pCO2 62 mmHg (35-45) H 03/11/18 03:57 ABG pO2 81 mmHg (85-104) L 03/11/18 03:57 ABG Total CO2 27 mEq/L (20-26) H 03/11/18 03:57 ABG O2 Saturation 93 % (95-98) L 03/11/18 03:57 ABG Base Excess -3 mEq/L (-2 to 3) L 03/11/18 03:57 Sodium 131 mEq/L (136-145) L 03/11/18 06:02 Potassium 5.5 mEq/L (3.5-5.1) H 03/11/18 06:02 Chloride 97 mEq/L (98-107) L 03/11/18 06:02 BUN 58 mg/dL (6-20) H 03/11/18 06:02 Creatinine 4.02 mg/dL (0.70-1.30) H 03/11/18 06:02 Est GFR ( Amer) 19 (> 60) L 03/11/18 06:02 Est GFR (Non-Af Amer) 16 (> 60) L 03/11/18 06:02 Glucose 312 mg/dL (70-105) H 03/11/18 06:02 POC Glucose 294 mg/dL (70-99) H 03/10/18 19:58 Calcium 8.1 mg/dL (8.6-10.3) L 03/11/18 06:02 Total Bilirubin 2.6 mg/dL (0.3-1.0) H 03/11/18 03:57 Direct Bilirubin 1.0 mg/dL (0.0-0.2) H 03/11/18 03:57 Indirect Bilirubin 1.6 mg/dL (0.0-1.2) H 03/11/18 03:57 AST 47 Units/L (13-39) H 03/11/18 03:57 Ammonia 115 mcmol/L (16-53) H 03/11/18 03:57 Troponin I 0.05 ng/mL (< 0.04) H* 03/11/18 03:57 B-Natriuretic Peptide 755 pg/mL (Less than 100) H 03/10/18 00:57 Triglycerides 166 mg/dL (< 150) H 03/10/18 00:57 VLDL Cholesterol, Calc 33 mg/dL (< 31) H 03/10/18 00:57 HDL Cholesterol 33 mg/dL (40-59) L 03/10/18 00:57 Lipase 5 Units/L (11-82) L 03/09/18 10:38 Ur Specific [place] > 1.030 (1.010-1.025) H 03/09/18 10:58 Urine Protein 30 mg/dL (Neg-Trace) H 03/09/18 10:58 Urine Glucose (UA) >=1000 mg/dL (Normal) H 03/09/18 10:58 Urine Ketones Trace mg/dL (Negative) H 03/09/18 10:58 Urine Blood Trace (Negative) H 03/09/18 10:58 H. influenzae (PCR) DETECTED (Not Detect) A 03/09/18 11:58 - Clinical Findings Intake & Output: Intake & Output 03/10/18 03/11/18 03/11/18 23:59 07:59 15:59 Intake Total 1030 / 1030 1010 / 1010 Output Total 60 / 60 Balance 1030 / 1030 1010 / 1010 -60 / -60 - Attending Attestation I examined this patient and my medical decision-making was reviewed with the Resident Physician. I agree with the documented findings, disposition and treatment plan as described except to the extent set forth below. We independently had [id number] contact with the patient I spent 45min of Critical Care time with this patient. It involved decision making of high complexity to assess, manipulate, and support vital organ system failure and/or to prevent further life threatening deterioration of the patient' s condition. The time involved in the performance of separately reportable procedures was not counted toward critical care time. Patient seen and examined at bedside Labs, radiology, chart personally reviewed. Management was reviewed during multidisciplinary critical care rounds. 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 on vent.sedation as needed for goal Erin 2-3. Lactulose will be scheduled either via enema or OG if placed by GI Pulm: Acute hypoxic hypercapnic respiartory failure s/t PNA and hydrostatic pulmoanry edema on vent. Acceptable gas exchange. Low PEEP than ideal because of acute cardiac ischemia. Cards: No evidence of shock at present by BP on lower side. Lactate checked and normal. Likely evolving acute lateral wall STEMI cardiology following rectal ASA given no heparin because of bleeinng risk Cardiology consulted no conservative mngt recommended because multiple acute comorbidities FEN-GI:NPO for now decompensted cirrhosis GI following. GI prophylaxis given. Renal: ELLIOT possible HRS octrotide and albumin given. Nephro consult.. HyperK+ medical mngt given with slight improvement. Needs MAST MAKER line to placed by IR. ID:H Flu bacteremia on ABx WBC rising. Heme/Onc: DVT prophylaxis given. History of CLL recent chemotherapy. Endo: Glucose Monitored hyperglycemia start insulin infusion Integ/MSK: Skin Care per routine ICU Nursing Protocol to prevent ulcers. Lines: All lines examined without evidence of infection : Dispo: ICU for critical illness CODE: Full code. Family updated at bedside. discused overall guarded pronosis given multiple medical comorbitiies and MOSF. The patient is unable or incompetent to participate in giving a history and/or making treatment decisions. The discussion was necessary for determining treatment decision. This discussion took place in the [ICU]. The total meeting time was [15 minutes]
[2018-03-11] MEDS ORDERED: Aminoglycoside Consult 1 EACH MC ONE (07:56)
[2018-03-11] MEDS ORDERED: *HR* Midazolam HCl 2 MG/2 ML VIAL IV ONE (08:23)
[2018-03-11 08:54] LABS: Calcium 8.3 mg/dL (8.6-10.3); Potassium 5.3 mEq/L (3.5-5.1)
[2018-03-11] MEDS: Gabapentin 300 MG CAPSULE PO SCH (08:57)
[2018-03-11] MEDS: Sucralfate 1 GM TABLET PO SCH ×3 (08:57→19:49)
[2018-03-11] MEDS: Furosemide 40 MG TABLET PO SCH (08:57)
[2018-03-11 08:58] LABS: Troponin I 0.04 ng/mL (< 0.04)
[2018-03-11] MEDS: Pantoprazole 40 MG VIAL IVP SCH (09:52)
[2018-03-11] MEDS: Piperacillin/Tazobactam 3.375 GM in 0.9 % Sodium Chloride Mini Bag 100 ML IVPB SCH ×2 (09:52→16:43)
[2018-03-11] MEDS: Chlorhexidine Rinse 15 ML MOUTHWASH MM SCH ×2 (09:52→21:07)
[2018-03-11] MEDS: Albumin 25% 25gram/100mL 25 GM/100 ML IV.SOLN IVC SCH ×4 (09:59→13:00)
[2018-03-11] MEDS: Insulin LISPRO 300 UNITS/3 ML VIAL SQ SCH ×2 (10:00→10:26)
[2018-03-11] MEDS ORDERED: Vancomycin 1 EACH in EMPTY BAG 1 EACH IVPB SCH (10:00)
[2018-03-11 10:14] LABS: Basophils % 0.3 %; Eosinophils % 0.2 %; Hematocrit 35.7 % (37.5-50.1); Hemoglobin 11.2 g/dL (12.9-16.9); Immature Granulocytes % 1.5 % (0-4); Lymphocytes # 0.7 K/mcL (0.6-4.6); Lymphocytes % 10.8 %; Mean Corpuscular HGB Conc 31.4 g/dL (31.6-35.5); Mean Corpuscular Hemoglobin 28.9 pg (28.0-33.3); Mean Platelet Volume 10.7 fL (9.4-12.4); Monocytes # 0.5 K/mcL (0.0-1.3); Neutrophils # 4.8 K/mcL (1.6-8.9); Nucleated Red Blood Cells 0.5 /100 WBC (0); Red Blood Count 3.88 M/mcL (4.19-5.50); Red Cell Distribution Width 15.5 % (11.5-14.5); Segmented Neutrophils % 79.2 %
[2018-03-11 10:16] LABS: Platelet Count 64 K/mcL (140-400)
[2018-03-11 10:37] LABS: Calcium 8.2 mg/dL (8.6-10.3)
--- NOTE | 2018-03-11 10:37 | Nephrology Consult Note ---
Date of Encounter: 03/11/18 Time of Encounter: 08:40 Assessment and Plan (1) ELLIOT (acute kidney injury) Current Visit: Yes Status: Acute ELLIOT in setting of sepsis, pneumonia, H Flu, STEMI, contrast nephropathy. Oliguric. Hyperkalemia related to ELLIOT. Concern for hepatorenal syndrome. Will obtain stat urine sodium. Will start on CVVH, orders written. Avoid nephrotoxins , Accurate I&O's. Will continue to monitor. History of Present Illness - Reason for Consult Acute Kidney Injury - History of Present Illness Mr. Fang is a 57 year old male admitted on March 03 with RUQ abdominal and chest tightness. S/P recent esophageal varisces banding. Currently in ICU, sedated on vent FiO2 80. Peep 8. No family present and HPI obtained from prior records. PMH -cancer, CAD-stent, SD, CHF, COPD, thrombocytopenia, diabetes, GERD, hyperlipidemia, DM II, hypertension, kidney stones. RUQ abdominal US- cholelithiasis with non specific GB wall thickening. Also cirrhosis with stigmata of portal hypertension including ascites. GI was consulted. CXR shows pleural effusions, CTA chest shows pleural effusions and suspected pneumonia, negative for PE. CT abd/pelvis with contrast-symmetric enhancement of the kidneys. No hydronephrosis is seen. Troponin 0,05, thought to be demand ischemia. Normal renal fct on admission, creat 0.89. Creat worsening yesterd 1.51 and today 4.20. Oliguric with 100 cc documented urine output in [facility]. UA- small protein, trace blood.Initial K 4.5, Potassium 6.3 this morning, treated with Kaexylate, currently 5.3. Home meds included Spironalactone which has been stopped. Event note early childhood associate in response to unresponsiveness, patient intubated and transferred to ICU for Evolving STEMI, Cardiology consulted. Sepsis from pneumonia and H Flu in blood culture. Vanco, Zosyn, Ceftriaxone coverage. Discussed with Pharmacy stopping Vanco. Past Med Surg Social Fam HX - Past Medical History Medical history: cancer, CHF, COPD, diabetes, GERD, hyperlipidemia, hypertension , kidney stones, myocardial infarction Additional medical history: morbid obesity with BMI of 45-49 adult. history of colon polyps. stomach polyp removed. esophageal varicies banded. lymphatic leukemia Psychiatric history: depression - Past Surgical History Surgical History: LE stent(s) Additional surgical history: Hernia repair. Kidney stones. esophageal varicies. stomach polyp removed and clamp placed - Social History Smoking Status: Former smoker Smokeless Tobacco Status: No Alcohol use: none Drug use: none - Family History Mother Living Status: Hx Family Respiratory Disorders: Yes (COPD) Father Living Status: Hx Family Cancer: Yes (throat) Medications and Allergies ALPRAZolam [Xanax] 1 mg PO BID PRN 05/09/15 [History] Atorvastatin Calcium [Lipitor] 20 mg PO HS 05/09/15 [History] Metformin HCl [Glucophage] 1,000 mg PO BID 05/09/15 [History] Metoprolol [Lopressor] 75 mg PO BID 05/09/15 [History] Nitroglycerin [Nitrolingual] 4.9 gm TL AD PRN 05/09/15 [History] Oxygen 2 l NS HS 03/26/16 [History] Spironolactone [Aldactone] 100 mg PO DAILY 03/26/16 [History] OxyCODONE/APAP 10/325 [Percocet 10/325] 1 tab PO Q6H PRN 07/30/16 [History] Esomeprazole Magnesium [Nexium] 40 mg PO DAILY 12/24/16 [History] Furosemide [Lasix] 40 mg PO DAILY 12/24/16 [History] Insulin Glargine,Hum.rec.anlog [Lantus Solostar] 50 unit SQ BID 12/24/16 [ History] Insulin Regular, Human [Novolin R] 20 unit SQ TIDWM 04/28/17 [History] Prochlorperazine Maleate [Compazine] 1 tab PO Q6HR PRN #30 tablet 05/07/17 [Rx] Gabapentin [Neurontin] 300 mg PO BID 07/15/17 [History] Levothyroxine [Synthroid] 88 mcg PO 0630 #30 tablet 11/23/17 [Rx] Pantoprazole Sodium [Protonix] 40 mg PO DAILY 03/09/18 [History] Sucralfate [Carafate] 1 gm PO TID 03/09/18 [History] 3 Allergy/AdvReac Type Severity Reaction Status Date / Time naproxen Allergy Mild Hives Verified 03/09/18 09:41 rituximab Allergy Mild Hives Verified 06/12/18 09:41 JUAN RAMON Inhibitors AdvReac Mild NECK PAIN Verified 03/09/18 09:41 cefdinir AdvReac Mild Dizziness Verified 03/09/18 09:41 hydrocodone AdvReac Mild Vomiting Verified 03/09/18 09:41 levofloxacin AdvReac Mild Dizziness Verified 03/09/18 09:41 ramipril [From Altace] AdvReac Mild NECK PAIN Verified 03/09/18 09:41 tramadol AdvReac Mild Nausea Verified 03/09/18 09:41 doxycycline AdvReac Vomiting Verified 03/09/18 09:41 Review of Systems ROS unobtainable: due to endotracheal tube Exam - Vital Signs Vital signs: Initial Vital Signs Temp Pulse Resp BP Pulse Ox 100.2 F H 96 28 149/80 88 03/09/18 09:41 03/09/18 09:41 03/09/18 09:41 03/09/18 09:41 03/09/18 09:41 Vital Signs - Last 8 Hours Temp Pulse Resp BP Pulse Ox 03/11/18 08:55 65 22 134/58 89 03/11/18 08:00 62 18 110/52 91 03/11/18 07:52 62 03/11/18 07:51 98.2 F 62 18 93/48 90 03/11/18 07:10 22 93/49 91 03/11/18 07:00 98.2 F 62 18 93/48 90 03/11/18 06:00 62 18 91/51 96 03/11/18 05:14 21 92/58 97 03/11/18 05:00 60 18 92/58 96 03/11/18 04:36 83 126/81 69 03/11/18 04:00 96.2 F L 56 22 95/59 94 03/11/18 03:45 17 97/70 92 Intake and Output 03/10/18 03/11/18 03/11/18 23:59 07:59 15:59 Intake Total 1030 / 1030 1010 / 1010 Output Total 60 / 60 Balance 1030 / 1030 1010 / 1010 -60 / -60 Intake: IV Fluids 1000 / 1000 1010 / 1010 0.9 % Sodium Chloride 1,000 ML 1000 / 1000 @ 100 mls/hr IVC .Q10H [facility] Rx#: [id number] ALBURX 5% 12.5 gm In 250 ml @ 500 / 500 60 mls/hr IVC .Q4H10M [facility] Rx#: [id number] FentaNYL (PF) 1,000 MCG In 0.9 10 / 10 % Sodium Chloride 80 ML @ 50 MCG/HR 5 mls/hr IVC CONT [facility] Rx #:[id number] Vancocin 1,750 MG In 0.9 % 500 / 500 Sodium Chloride 500 ML @ 334. 014 mls/hr IVPB Q12H [facility] Rx#: [id number] Oral 30 / 30 Output: Catheter 60 / 60 Other: Stool Size Copious Stool Consistency liquid Stool Color Yellow Blood Glucose* 294 285 - General Appearance General appearance: well-developed, well-nourished, appears started age, obese EENT: mucous membranes moist Neck: no JVD Respiratory: rhonchi Cardiology: edema, regular rate, regular rhythm Additional Comments: mild pitting edema Gastrointestinal: normoactive bowel sounds, obese, distended Integumentary: warm and dry Results - Lab Results 03/11/18 03:57 03/11/18 08:16 Most recent lab results ABG pH 7.22 pH Units (7.32-7.45) L 03/11/18 03:57 ABG pCO2 62 mmHg (35-45) H 03/11/18 03:57 ABG pO2 81 mmHg (85-104) L 03/11/18 03:57 ABG HCO3 26 mEq/L (21-27) 03/11/18 03:57 ABG O2 Saturation 93 % (95-98) L 03/11/18 03:57 Calcium 8.3 mg/dL (8.6-10.3) L 03/11/18 08:16 Magnesium 1.7 mg/dL (1.6-2.6) 03/10/18 00:57 Consult Discharge Plan - Plan Referrals: Derick Ellis DO [Primary Care Provider] -
[2018-03-11 10:39] LABS: Albumin 3.9 g/dL (3.5-5.7); Albumin/Globulin Ratio 1.6 (1.1-2.2); Bilirubin,Direct 0.9 mg/dL (0.0-0.2); Bilirubin,Indirect 1.2 mg/dL (0.0-1.2); Bilirubin,Total 2.1 mg/dL (0.3-1.0); Calcium 8.2 mg/dL (8.6-10.3); Globulin 2.5 g/dL (2.4-3.5); Magnesium 2.2 mg/dL (1.6-2.6); Total Protein 6.4 g/dL (6.4-8.9)
[2018-03-11] MEDS: Insulin DETEMIR 100 UNIT/ML X5UNITS SQ SCH ×2 (10:51→19:49)
[2018-03-11] MEDS ORDERED: *HR* Dextrose 50 % in Water (Syg) 50 ML SYRINGE IVP PRN (11:04)
[2018-03-11 11:35] LABS: ABG Base Excess -2 mEq/L (-2 to 3); ABG HCO3 28 mEq/L (21-27); ABG Oxygen Saturation 92 % (95-98); ABG PCO2 77 mmHg (35-45); ABG PH 7.17 pH Units (7.32-7.45); ABG PO2 82 mmHg (85-104); ABG TCO2 31 mEq/L (20-26); Blood Gas PEEP 8 cm H2O; Blood Gas Respiration Rate 18; Blood Gas VT 400 cc
[2018-03-11] MEDS: *HR* Heparin 5,000 UNIT/ML VIAL SQ SCH ×2 (12:28→18:00)
[2018-03-11] MEDS ORDERED: *HR* Heparin 5,000 UNIT/ML VIAL ONE (12:47)
[2018-03-11 13:07] LABS: Calcium 8.3 mg/dL (8.6-10.3); Potassium 5.1 mEq/L (3.5-5.1)
[2018-03-11 13:14] LABS: Troponin I 0.05 ng/mL (< 0.04)
--- NOTE | 2018-03-11 14:00 | Procedure Note ---
Date of procedure: 03/11/18 Pre-op diagnosis: Hemodyalysis catheter placement Post-op diagnosis: same Procedure: Temporary Hemodialysis catheter Catheter (HD Catheter) Placement Date: 03/11/2018 Time: 1200 Indication: Hemodynamic monitoring/Intravenous access Resident: Derick Kruse DO Attending: La Nena Ernst MD A time-out was completed verifying correct patient, procedure, site, positioning , and special equipment if applicable. The patient was placed in a dependent position appropriate for Temporary HD Catheter placement based on the vein to be cannulated. The patients right neck was prepped and draped in sterile fashion. 1% Lidocaine was used to anesthetize the surrounding skin area. A triple lumen 15-[place] Cordis catheter was introduced into the the internal jugular using the Seldinger technique and under ultrasound guidance. The catheter was threaded smoothly over the guide wire and appropriate blood return was obtained. Each lumen of the catheter was evacuated of air and flushed with sterile saline. The catheter was then sutured in place to the skin and a sterile dressing applied. Perfusion to the extremity distal to the point of catheter insertion was checked and found to be adequate. Dr. La Nena Ernst was present for the entire procedure. Estimated Blood Loss: 5ml The patient tolerated the procedure well and there were no complications. Anesthesia: local Surgeon: Derick Kruse Was there an ophthalmic assistant present: Yes Lathe Winder: La Nena Ernst Estimated blood loss (cc): 5 Specimen: none Condition: stable Disposition: ICU
[2018-03-11] MEDS: PrismaSATE BGK 4/2.5 5,000 ML CRRT SCH ×4 (14:44→19:45)
[2018-03-11] MEDS: Insulin Human Regular 100 UNIT in 0.9 % Sodium Chloride 100 ML IVC SCH (15:00)
[2018-03-11] MEDS: Lactulose 200 GM, Sodium Chloride IRRigation 700 ML RC SCH ×2 (15:51→20:27)
[2018-03-11] MEDS: Norepinephrine 4 MG in D5% in Water 250 ML IVC SCH (15:51)
[2018-03-11 15:57] LABS: ABG Base Excess 1 mEq/L (-2 to 3); ABG HCO3 27 mEq/L (21-27); ABG Oxygen Saturation 100 % (95-98); ABG PCO2 51 mmHg (35-45); ABG PH 7.33 pH Units (7.32-7.45); ABG PO2 248 mmHg (85-104); ABG TCO2 28 mEq/L (20-26); Blood Gas PEEP 8 cm H2O; Blood Gas Respiration Rate 24; Blood Gas VT 430 cc
--- NOTE | 2018-03-11 16:12 | Cardiology Consult Note ---
Date of Encounter: 03/11/18 Time of Encounter: 16:08 Assessment and Plan (1) Elevated troponin I level Current Visit: Yes Status: Acute Multiple CRF's and comorbidities but adynamic troponins with peak at .05. EKG possibly related to electrolyte abnormalities. High risk for bleed due to liver cirrhosis and thrombocytopenia. Risks of a LHC outweigh the benefit at this time. Will ask primary team to notify us once his MOF is resolving and he is a candidate for Cardiac testing. No current indication for Heparin, ASA if not contraindicated Discussion w patient/family: The assessment and plan as outlined above was discussed with the patient and/or family members who expressed understanding and agreement. All questions were answered. Thank you for involving us in the care of your patient. Please call with any questions. History of Present Illness Consult date: 03/11/18 Consult reason: Elevated troponins Chief complaint: SOB History of present illness: Mr. Fang is a 57 year old male sedated intubated on the Vent with h/o multiple cardiac morbidities with MOF found to have mild adynamic elevation in troponins. EKG with ST changes possibly secondary to hyperkalemia. Previous WI' s according to daughter but no cardiac interventions. Possible pneumonia with influenza A positive testing. With low platelets, liver and renal impairment patient is a high risk for cardiac procedures at this time. ECHO revelaed EF of 50% without significant valvular abnormalities. Past Med Surg Social Fam HX - Past Medical History Medical history: cancer, CHF, COPD, diabetes, GERD, hyperlipidemia, hypertension , kidney stones, myocardial infarction Additional medical history: morbid obesity with BMI of 45-49 adult. history of colon polyps. stomach polyp removed. esophageal varicies banded. lymphatic leukemia Psychiatric history: depression - Past Surgical History Surgical History: LE stent(s) Additional surgical history: Hernia repair. Kidney stones. esophageal varicies. stomach polyp removed and clamp placed - Social History Smoking Status: Former smoker Smokeless Tobacco Status: No Alcohol use: none Drug use: none - Family History Mother Living Status: Hx Family Respiratory Disorders: Yes (COPD) Father Living Status: Hx Family Cancer: Yes (throat) Medications and Allergies ALPRAZolam [Xanax] 1 mg PO BID PRN 05/09/15 [History] Atorvastatin Calcium [Lipitor] 20 mg PO HS 05/09/15 [History] Metformin HCl [Glucophage] 1,000 mg PO BID 05/09/15 [History] Metoprolol [Lopressor] 75 mg PO BID 05/09/15 [History] Nitroglycerin [Nitrolingual] 4.9 gm TL AD PRN 05/09/15 [History] Oxygen 2 l NS HS 03/26/16 [History] Spironolactone [Aldactone] 100 mg PO DAILY 03/26/16 [History] OxyCODONE/APAP 10/325 [Percocet 10/325] 1 tab PO Q6H PRN 07/30/16 [History] Esomeprazole Magnesium [Nexium] 40 mg PO DAILY 12/24/16 [History] Furosemide [Lasix] 40 mg PO DAILY 12/24/16 [History] Insulin Glargine,Hum.rec.anlog [Lantus Solostar] 50 unit SQ BID 12/24/16 [ History] Insulin Regular, Human [Novolin R] 20 unit SQ TIDWM 04/28/17 [History] Prochlorperazine Maleate [Compazine] 1 tab PO Q6HR PRN #30 tablet 05/07/17 [Rx] Gabapentin [Neurontin] 300 mg PO BID 07/15/17 [History] Levothyroxine [Synthroid] 88 mcg PO 0630 #30 tablet 11/23/17 [Rx] Pantoprazole Sodium [Protonix] 40 mg PO DAILY 03/09/18 [History] Sucralfate [Carafate] 1 gm PO TID 03/09/18 [History] 3 Allergy/AdvReac Type Severity Reaction Status Date / Time naproxen Allergy Mild Hives Verified 03/09/18 09:41 rituximab Allergy Mild Hives Verified 03/09/18 09:41 JUAN RAMON Inhibitors AdvReac Mild NECK PAIN Verified 03/09/18 09:41 cefdinir AdvReac Mild Dizziness Verified 03/09/18 09:41 hydrocodone AdvReac Mild Vomiting Verified 03/09/18 09:41 levofloxacin AdvReac Mild Dizziness Verified 03/09/18 09:41 ramipril [From Altace] AdvReac Mild NECK PAIN Verified 03/09/18 09:41 tramadol AdvReac Mild Nausea Verified 03/09/18 09:41 doxycycline AdvReac Vomiting Verified 03/09/18 09:41 All Systems Review: The remainder of the systems were reviewed and are negative Physical Examination Vital Signs, Last 4 Hours Pulse Resp BP Pulse Ox 03/11/18 15:00 53 24 85/43 100 03/11/18 14:00 56 24 89/44 100 03/11/18 13:00 58 24 94/45 100 General: Conversant, No Apparent Distress HEENT: Atraumatic, Normocephaly, Mucus Membranes Moist Neck: No JVD, Normal carotid pulses Cardiac: Reg Rate and Rhythm, Normal S1 and S2, No Murmur Lungs: Normal Breath Sounds, No Wheeze, Rales, Rhonchi Neuro: Alert and responsive, No focal deficits noted Abdomen: Soft, Non-Tender Skin: No rashes noted on visualized skin Musculoskeletal: No Chest Wall Tenderness Extremities: No Clubbing, No Cyanosis, No Edema, Normal Pulses Results 03/11/18 09:56 03/11/18 12:08 Lab Results 03/11/18 03/11/18 03/11/18 03:57 03:57 03:57 WBC 11.3 H D Hgb 12.6 L Hct 40.5 Plt Count 100 L D INR 1.2 APTT 34.3 Sodium 131 L Potassium 6.3 H Chloride 94 L Carbon Dioxide 24 BUN 55 H Creatinine 4.11 H Glucose 270 H Calcium 8.5 L Magnesium Total Bilirubin AST ALT Alkaline Phosphatase Troponin I 03/11/18 03/11/18 03/11/18 03:57 03:57 06:02 WBC Hgb Hct Plt Count INR APTT Sodium 131 L Potassium 5.5 H Chloride 97 L Carbon Dioxide 24 BUN 58 H Creatinine 4.02 H Glucose 312 H Calcium 8.1 L Magnesium Total Bilirubin 2.6 H AST 47 H ALT 46 Alkaline Phosphatase 83 Troponin I 0.05 H* 03/11/18 03/11/18 03/11/18 08:16 09:56 09:56 WBC 6.1 Hgb 11.2 L Hct 35.7 L Plt Count 64 L INR APTT Sodium 134 L 134 L Potassium 5.3 H 5.0 Chloride 97 L 97 L Carbon Dioxide 22 L 23 BUN 60 H 61 H Creatinine 4.20 H 4.09 H Glucose 310 H 318 H Calcium 8.3 L 8.2 L Magnesium Total Bilirubin AST ALT Alkaline Phosphatase Troponin I 0.04 H* 03/11/18 03/11/18 09:56 12:08 WBC Hgb Hct Plt Count INR APTT Sodium 133 L 134 L Potassium 5.0 5.1 Chloride 96 L 95 L Carbon Dioxide 22 L 23 BUN 60 H 64 H Creatinine 4.08 H 4.26 H Glucose 318 H 313 H Calcium 8.2 L 8.3 L Magnesium 2.2 Total Bilirubin 2.1 H AST 47 H ALT 44 Alkaline Phosphatase 70 Troponin I 0.05 H* Consult Discharge Plan - Plan Referrals: Derick Ellis DO [Primary Care Provider] -
[2018-03-11 16:40] LABS: Mean Corpuscular Volume 92.4 fL (83.0-100.0); Nucleated Red Blood Cells 0.7 /100 WBC (0)
[2018-03-11 16:42] LABS: Hematocrit 29.1 % (37.5-50.1); Hemoglobin 9.3 g/dL (12.9-16.9); Immature Granulocytes % 1.3 % (0-4); Immature Platelets 4.1 % (1.1-6.1); Lymphocytes # 0.4 K/mcL (0.6-4.6); Lymphocytes % 13.2 %; Mean Corpuscular Hemoglobin 29.5 pg (28.0-33.3); Mean Platelet Volume 10.4 fL (9.4-12.4); Monocytes # 0.2 K/mcL (0.0-1.3); Neutrophils # 2.4 K/mcL (1.6-8.9); Platelet Count 50 K/mcL (140-400); Red Blood Count 3.15 M/mcL (4.19-5.50); Red Cell Distribution Width 15.5 % (11.5-14.5); Segmented Neutrophils % 78.5 %
[2018-03-11 17:00] LABS: Calcium 8.2 mg/dL (8.6-10.3); Magnesium 2.3 mg/dL (1.6-2.6); Potassium 4.5 mEq/L (3.5-5.1)
[2018-03-12] MEDS: Piperacillin/Tazobactam 3.375 GM in 0.9 % Sodium Chloride Mini Bag 100 ML IVPB SCH ×3 (00:04→16:49)
[2018-03-12] MEDS: Lacri-Lube 3.5 GM TUBE BOTH EYES SCH ×2 (00:06→05:12)
[2018-03-12] MEDS: PrismaSATE BGK 4/2.5 5,000 ML CRRT SCH ×10 (00:51→22:39)
[2018-03-12] MEDS: FentaNYL (PF) 1,000 MCG in 0.9 % Sodium Chloride 80 ML IVC SCH ×3 (01:52→20:32)
[2018-03-12] MEDS: Norepinephrine 4 MG in D5% in Water 250 ML IVC SCH (02:50)
[2018-03-12 04:12] LABS: Basophils % 0.3 %; Eosinophils % 0.5 %; Red Cell Distribution Width 15.8 % (11.5-14.5)
[2018-03-12 04:14] LABS: Hematocrit 34.3 % (37.5-50.1); Lymphocytes # 0.5 K/mcL (0.6-4.6); Lymphocytes % 8.5 %; Mean Corpuscular HGB Conc 32.1 g/dL (31.6-35.5); Mean Corpuscular Hemoglobin 28.9 pg (28.0-33.3); Mean Corpuscular Volume 90.3 fL (83.0-100.0); Monocytes # 0.6 K/mcL (0.0-1.3); Monocytes % 9.7 %; Neutrophils # 4.9 K/mcL (1.6-8.9); Nucleated Red Blood Cells 0.6 /100 WBC (0)
[2018-03-12 04:15] LABS: Platelet Count 77 K/mcL (140-400)
[2018-03-12 04:39] LABS: Calcium 8.4 mg/dL (8.6-10.3)
[2018-03-12] MEDS: *HR* Heparin 5,000 UNIT/ML VIAL SQ SCH ×2 (05:50→16:49)
[2018-03-12] MEDS: Insulin Human Regular 100 UNIT in 0.9 % Sodium Chloride 100 ML IVC SCH (06:00)
--- NOTE | 2018-03-12 08:09 | Pulmonology Progress Note ---
<Kartik Heath W - Last Filed: 03/12/18 10:02> Date of Encounter: 03/12/18 Objective PUL Vital signs: Last Vital Signs Temp 97.3 F L 03/12/18 08:00 Pulse 54 03/12/18 08:00 Resp 18 03/12/18 08:00 BP 104/54 03/12/18 08:00 Pulse Ox 99 03/12/18 08:00 Ventilator Settings Ventilator Settings: Ventilator Settings, Last 8 Hours Ventilator Tidal Volume 430 Setting Ventilator Tidal Volume 430 Setting Ventilator Tidal Volume 430 Setting Ventilator Tidal Volume 430 Setting Ventilator Tidal Volume 430 Setting Ventilator Tidal Volume 430 Setting Ventilator Tidal Volume 430 Setting Ventilator Tidal Volume 430 Setting Ventilator Tidal Volume 430 Setting Ventilator Tidal Volume 430 Setting Ventilator Tidal Volume 430 Setting Ventilator Respiratory Rate 16 Setting Ventilator Respiratory Rate 24 Setting Ventilator Respiratory Rate 24 Setting Ventilator Respiratory Rate 24 Setting Ventilator Respiratory Rate 24 Setting Ventilator Respiratory Rate 24 Setting Ventilator Respiratory Rate 24 Setting Ventilator Respiratory Rate 24 Setting Ventilator Respiratory Rate 24 Setting Ventilator Respiratory Rate 24 Setting Ventilator Respiratory Rate 24 Setting Actual Respiratory Rate 18 Actual Respiratory Rate 24 Actual Respiratory Rate 24 Actual Respiratory Rate 24 Actual Respiratory Rate 24 Actual Respiratory Rate 25 Actual Respiratory Rate 25 Actual Respiratory Rate 24 Actual Respiratory Rate 24 Actual Respiratory Rate 24 Actual Respiratory Rate 24 Positive End Expiratory 5 Pressure Positive End Expiratory 5 Pressure Positive End Expiratory 8 Pressure Positive End Expiratory 8 Pressure Positive End Expiratory 8 Pressure Positive End Expiratory 8 Pressure Positive End Expiratory 8 Pressure Positive End Expiratory 8 Pressure Positive End Expiratory 8 Pressure Positive End Expiratory 8 Pressure Positive End Expiratory 8 Pressure Peak Inspiratory Airway 28 Pressure Peak Inspiratory Airway 30 Pressure Peak Inspiratory Airway 30 Pressure Peak Inspiratory Airway 30 Pressure Peak Inspiratory Airway 35 Pressure Peak Inspiratory Airway 31 Pressure Peak Inspiratory Airway 28 Pressure Peak Inspiratory Airway 28 Pressure Peak Inspiratory Airway 28 Pressure Peak Inspiratory Airway 28 Pressure Peak Inspiratory Airway 28 Pressure Results - Laboratory Findings CBC and BMP: 03/12/18 03:55 03/12/18 03:55 ABG ABG pH 7.33 pH Units (7.32-7.45) D 03/11/18 15:39 ABG pCO2 51 mmHg (35-45) H D 03/11/18 15:39 ABG pO2 248 mmHg (85-104) H D 03/11/18 15:39 ABG O2 Saturation 100 % (95-98) H 03/11/18 15:39 PT/INR, D-dimer PT 12.7 Seconds (9.4-12.1) H 03/11/18 03:57 Abnormal lab findings: Abnormal lab results RBC 3.80 M/mcL (4.19-5.50) L 03/12/18 03:55 Hgb 11.0 g/dL (12.9-16.9) L D 03/12/18 03:55 Hct 34.3 % (37.5-50.1) L 03/12/18 03:55 RDW 15.8 % (11.5-14.5) H 03/12/18 03:55 Plt Count 77 K/mcL (140-400) L D 03/12/18 03:55 Band Neutrophils % 16.0 % (0-4) H 03/09/18 10:38 Metamyelocytes % 10.0 % (0) H 03/09/18 10:38 Lymphocytes # 0.5 K/mcL (0.6-4.6) L 03/12/18 03:55 Nucleated RBCs/100 WBC 0.6 /100 WBC (0) H 03/12/18 03:55 Reactive Lymphocytes Present (Not Present) A 03/09/18 10:38 Platelet Estimate Decreased (Normal) L 03/10/18 00:57 PT 12.7 Seconds (9.4-12.1) H 03/11/18 03:57 ABG pCO2 51 mmHg (35-45) H D 03/11/18 15:39 ABG pO2 248 mmHg (85-104) H D 03/11/18 15:39 ABG Total CO2 28 mEq/L (20-26) H 03/11/18 15:39 ABG O2 Saturation 100 % (95-98) H 03/11/18 15:39 BUN 51 mg/dL (6-20) H 03/12/18 03:55 Creatinine 3.09 mg/dL (0.70-1.30) H 03/12/18 03:55 Est GFR ( Amer) 26 (> 60) L 03/12/18 03:55 Est GFR (Non-Af Amer) 21 (> 60) L 03/12/18 03:55 Glucose 137 mg/dL (70-105) H 03/12/18 03:55 POC Glucose 113 mg/dL (70-99) H 03/12/18 01:00 Calculated Osmolality 302 (280-300) H 03/12/18 03:55 Calcium 8.4 mg/dL (8.6-10.3) L 03/12/18 03:55 Phosphorus 7.0 mg/dL (2.7-4.5) H 03/11/18 09:56 Total Bilirubin 2.1 mg/dL (0.3-1.0) H 03/11/18 09:56 Direct Bilirubin 0.9 mg/dL (0.0-0.2) H 03/11/18 09:56 AST 47 Units/L (13-39) H 03/11/18 09:56 Ammonia 64 mcmol/L (16-53) H 03/12/18 03:55 Troponin I 0.05 ng/mL (< 0.04) H* 03/11/18 12:08 B-Natriuretic Peptide 755 pg/mL (Less than 100) H 03/10/18 00:57 Triglycerides 166 mg/dL (< 150) H 03/10/18 00:57 VLDL Cholesterol, Calc 33 mg/dL (< 31) H 03/10/18 00:57 HDL Cholesterol 33 mg/dL (40-59) L 03/10/18 00:57 Lipase 5 Units/L (11-82) L 03/09/18 10:38 Ur Specific Mitchell > 1.030 (1.010-1.025) H 03/09/18 10:58 Urine Protein 30 mg/dL (Neg-Trace) H 03/09/18 10:58 Urine Glucose (UA) >=1000 mg/dL (Normal) H 03/09/18 10:58 Urine Ketones Trace mg/dL (Negative) H 03/09/18 10:58 Urine Blood Trace (Negative) H 03/09/18 10:58 H. influenzae (PCR) DETECTED (Not Detect) A 03/09/18 11:58 - Microbiology Findings Microbiology Findings: Microbiology, Last 48 Hours 03/11/18 22:20 Sputum Culture - Final Sputum - Clinical Findings Intake & Output: Intake & Output 03/11/18 03/12/18 03/12/18 23:59 07:59 15:59 Intake Total 1320 / 1320 448 / 448 Output Total 1620 / 1620 1386 / 1386 46 / 46 Balance -300 / -300 -938 / -938 -46 / -46 Weight 124.5 kg Consult Discharge Plan - Plan Referrals: Derick Ellis DO [Primary Care Provider] - - Attending Attestation I examined this patient and my medical decision-making was reviewed with the Resident Physician. I agree with the documented findings, disposition and treatment plan as described except to the extent set forth below. We independently had [id number] contact with the patient I spent 32min of Critical Care time with this patient. It involved decision making of high complexity to assess, manipulate, and support vital organ system failure and/or to prevent further life threatening deterioration of the patient' s condition. The time involved in the performance of separately reportable procedures was not counted toward critical care time. Patient seen and examined at bedside Labs, radiology, chart personally reviewed. Management was reviewed during multidisciplinary critical care rounds. [employer]: More awake today and following simple commands without focal deficit. He remains mildly encephalopathich with is mulfifactorial including hepatic and metabolic encephalopathy Pulm: Hypoxic/hypercapnic respiartory failure. Remains vent dependent but decreasing Fio2 need. Not a candidate today for SBT because of ongoing ABG pending. Cards: Hypotensive overnigth requiring vasopressor but has been weaned off this morning. Mild bradycardia but MAP >65 all morning. STEMI evaluated by cardiology with recs for conservative mngt given medical comorbidities and critical illness with high risk of hemorrhage FEN-GI: Gi prophylaxis given. History of Esophageal varices s/t PEREZ cirrhosis which is decompensated. GI following. NPO for now no OG/NG because of Varices confirmed this with GI Renal: ELLIOT Concern for HRS requiring CRRT remains anuric nephrology following cont to treand electrolytes. K+ is treated at this point. ID: H Flu bacteremia possibly s/t to PNA on ABx broad spectrum because of acute decompensation yesterday. 24 more hour so broad ABx with plan to deescalate tomorrow. Heme/Onc: DVT prophylaxis given with SubQ heparin chronic anemia and thrombocytopenia which are stable. Endo: Glucose Monitored he remains on insulin infusion. Integ/MSK: Skin Care per routine ICU Nursing Protocol to prevent ulcers. Lines: All lines examined without evidence of infection : Dispo: Remain in ICU for Critical Illness CODE: Full Code. <Miguel Molina - Last Filed: 03/12/18 12:04> Date of Encounter: 03/12/18 Time of Encounter: 07:30 Assessment and Plan (1) Acute respiratory failure with hypercapnia Current Visit: Yes Status: Acute Patient is awake and alert. Able to follow commands. Vitals stable. Good O2 saturations. Attempting to wean off vent now by dropping RR from 24 to 16 and PEEP from 8 to 5. Possible extubation later today if patient is able to tolerate. (2) Pneumonia Current Visit: Yes Status: Acute WBC within normal range at 6.3. Blood cultures positive for Haemophilus. Sputum culture samples were rejected. On day 2 of vancomycin and zosyn. - Continue antibiotics. - One more dose of vancomycin today. Plan to discontinue tomorrow. Qualifiers: Pneumonia type: due to unspecified organism Laterality: bilateral Lung location: unspecified part of lung Qualified Code(s): J18.9 - Pneumonia, unspecified organism (3) STEMI (ST elevation myocardial infarction) Current Visit: Yes Status: Acute Continues to have STEMI on telemetry. On rectal ASA. Cardiology consulted and current recommendation is to hold off on acute intervention and holding off on the heparin drip given patient's sepsis, PNA, and history of esophageal varicies. - Continue rectal ASA. Will switch to PO once OG tube in place. - Continue to hold heparin drip. Qualifiers: Qualified Code(s): I21.3 - ST elevation (STEMI) myocardial infarction of unspecified site (4) Decompensation of cirrhosis of liver Current Visit: Yes Status: Acute History of cirrhosis. RUQ US shows cholelithiasis with nonspecific gallbladder wall thickening and cirrhosis with stigmata of portal hypertension. CT shows nodularity of the liver. Ammonia level has improved from 115 on admission to 64 today. Patient is more alert and awake and able to follow commands. Platelet level has increased from yesterday from 50 to 77. (5) Hepatic encephalopathy Current Visit: Yes Status: Acute Improving. Ammonia level improved from 115 on admission to 64 toady. Patient more alert and awake and able to follow commands. (6) Esophageal varices without bleeding Current Visit: Yes Status: Acute History of esophageal varices per recent egd. endoscopy 03/02/18 Single 35mm sessile polyp removed and sent for biopsy. Gastric polyp removed and sent for biopsy. grade I esophageal varicies. Gastroenterology seeing in consultation. Hemoglobin stable at 11. No signs of hemoptysis or hematemesis. - Will contact GI today for evaluation for possible EGD. Qualifiers: Esophageal varices type: secondary Qualified Code(s): I85.10 - Secondary esophageal varices without bleeding (7) Thrombocytopenia Current Visit: Yes Status: Acute Secondary to decompensated cirrhosis. Platelet level improving from yesterday from 50 to 77. (8) ELLIOT (acute kidney injury) Current Visit: Yes Status: Acute Baseline creatinine from 0.9-1.0. Creatinine improved from yesterday from 4 to 3.09. ELLIOT in setting of sepsis, PNA, STEMI, and contrast nephropathy. Concern for hepatorenal syndrome. Patient was given octrotide and albumin. Nephrology was consulted. Patient on BALBINA dialysis. - avoid nephrotoxins. - Accurate I/O's. - Continue dialysis. (9) Hyperkalemia Current Visit: Yes Status: Resolved Current potassium at 4. (10) DVT prophylaxis Current Visit: Yes Status: Acute On heparin 5000 U SQ BID. Subjective Principal diagnosis: Acute respiratory failure, PNA, STEMI, Cirrhosis Interval history: Patient is more awake and alert today. He is able to follow commands. He denies any chest pain. Admits to some discomfort from the lines in his R neck. He denies any fever or chills. Denies any abdominal pain or nausea. Objective PUL Vital signs: Last Vital Signs Temp 97.4 F L 03/12/18 04:00 Pulse 48 03/12/18 07:00 Resp 24 03/12/18 07:00 BP 111/63 03/12/18 07:00 Pulse Ox 100 03/12/18 07:00 General appearance: no acute distress, other (Intubated. ) Eyes: nonicteric ENT: oropharynx moist Neck: supple Effort: normal Auscultation: bilateral: clear Percussion: bilateral: not dull Tactile fremitus: bilateral: normal Cardiovascular: other (Bradycardia ) Gastrointestinal: normoactive bowel sounds, soft, non-tender, non-distended Integumentary: normal Extremities: no cyanosis, no edema, no clubbing, pink and warm, pulses normal, no ischemia or petechiae Musculoskeletal: no deformities unable to assess due to mental status mood appropriate, affect normal Ventilator Settings Ventilator Settings: Ventilator Settings, Last 8 Hours Ventilator Tidal Volume 430 Setting Ventilator Tidal Volume 430 Setting Ventilator Tidal Volume 430 Setting Ventilator Tidal Volume 430 Setting Ventilator Tidal Volume 430 Setting Ventilator Tidal Volume 430 Setting Ventilator Tidal Volume 430 Setting Ventilator Tidal Volume 430 Setting Ventilator Tidal Volume 430 Setting Ventilator Tidal Volume 430 Setting Ventilator Respiratory Rate 24 Setting Ventilator Respiratory Rate 24 Setting Ventilator Respiratory Rate 24 Setting Ventilator Respiratory Rate 24 Setting Ventilator Respiratory Rate 24 Setting Ventilator Respiratory Rate 24 Setting Ventilator Respiratory Rate 24 Setting Ventilator Respiratory Rate 24 Setting Ventilator Respiratory Rate 24 Setting Ventilator Respiratory Rate 24 Setting Actual Respiratory Rate 24 Actual Respiratory Rate 24 Actual Respiratory Rate 24 Actual Respiratory Rate 25 Actual Respiratory Rate 25 Actual Respiratory Rate 24 Actual Respiratory Rate 24 Actual Respiratory Rate 24 Actual Respiratory Rate 24 Actual Respiratory Rate 24 Positive End Expiratory 8 Pressure Positive End Expiratory 8 Pressure Positive End Expiratory 8 Pressure Positive End Expiratory 8 Pressure Positive End Expiratory 8 Pressure Positive End Expiratory 8 Pressure Positive End Expiratory 8 Pressure Positive End Expiratory 8 Pressure Positive End Expiratory 8 Pressure Positive End Expiratory 8 Pressure Peak Inspiratory Airway 30 Pressure Peak Inspiratory Airway 30 Pressure Peak Inspiratory Airway 35 Pressure Peak Inspiratory Airway 31 Pressure Peak Inspiratory Airway 28 Pressure Peak Inspiratory Airway 28 Pressure Peak Inspiratory Airway 28 Pressure Peak Inspiratory Airway 28 Pressure Peak Inspiratory Airway 28 Pressure Peak Inspiratory Airway 29 Pressure Results - Laboratory Findings CBC and BMP: 03/12/18 03:55 03/12/18 03:55 ABG ABG pH 7.33 pH Units (7.32-7.45) D 03/11/18 15:39 ABG pCO2 51 mmHg (35-45) H D 03/11/18 15:39 ABG pO2 248 mmHg (85-104) H D 03/11/18 15:39 ABG O2 Saturation 100 % (95-98) H 03/11/18 15:39 PT/INR, D-dimer PT 12.7 Seconds (9.4-12.1) H 03/11/18 03:57 Abnormal lab findings: Abnormal lab results RBC 3.80 M/mcL (4.19-5.50) L 03/12/18 03:55 Hgb 11.0 g/dL (12.9-16.9) L D 03/12/18 03:55 Hct 34.3 % (37.5-50.1) L 03/12/18 03:55 RDW 15.8 % (11.5-14.5) H 03/12/18 03:55 Plt Count 77 K/mcL (140-400) L D 03/12/18 03:55 Band Neutrophils % 16.0 % (0-4) H 03/09/18 10:38 Metamyelocytes % 10.0 % (0) H 03/09/18 10:38 Lymphocytes # 0.5 K/mcL (0.6-4.6) L 03/12/18 03:55 Nucleated RBCs/100 WBC 0.6 /100 WBC (0) H 03/12/18 03:55 Reactive Lymphocytes Present (Not Present) A 03/09/18 10:38 Platelet Estimate Decreased (Normal) L 03/10/18 00:57 PT 12.7 Seconds (9.4-12.1) H 03/11/18 03:57 ABG pCO2 51 mmHg (35-45) H D 03/11/18 15:39 ABG pO2 248 mmHg (85-104) H D 03/11/18 15:39 ABG Total CO2 28 mEq/L (20-26) H 03/11/18 15:39 ABG O2 Saturation 100 % (95-98) H 03/11/18 15:39 BUN 51 mg/dL (6-20) H 03/12/18 03:55 Creatinine 3.09 mg/dL (0.70-1.30) H 03/12/18 03:55 Est GFR ( Amer) 26 (> 60) L 03/12/18 03:55 Est GFR (Non-Af Amer) 21 (> 60) L 03/12/18 03:55 Glucose 137 mg/dL (70-105) H 03/12/18 03:55 POC Glucose 113 mg/dL (70-99) H 03/12/18 01:00 Calculated Osmolality 302 (280-300) H 03/12/18 03:55 Calcium 8.4 mg/dL (8.6-10.3) L 03/12/18 03:55 Phosphorus 7.0 mg/dL (2.7-4.5) H 03/11/18 09:56 Total Bilirubin 2.1 mg/dL (0.3-1.0) H 03/11/18 09:56 Direct Bilirubin 0.9 mg/dL (0.0-0.2) H 03/11/18 09:56 AST 47 Units/L (13-39) H 03/11/18 09:56 Ammonia 64 mcmol/L (16-53) H 03/12/18 03:55 Troponin I 0.05 ng/mL (< 0.04) H* 03/11/18 12:08 B-Natriuretic Peptide 755 pg/mL (Less than 100) H 03/10/18 00:57 Triglycerides 166 mg/dL (< 150) H 03/10/18 00:57 VLDL Cholesterol, Calc 33 mg/dL (< 31) H 03/10/18 00:57 HDL Cholesterol 33 mg/dL (40-59) L 03/10/18 00:57 Lipase 5 Units/L (11-82) L 03/09/18 10:38 Ur Specific Mitchell > 1.030 (1.010-1.025) H 03/09/18 10:58 Urine Protein 30 mg/dL (Neg-Trace) H 03/09/18 10:58 Urine Glucose (UA) >=1000 mg/dL (Normal) H 03/09/18 10:58 Urine Ketones Trace mg/dL (Negative) H 03/09/18 10:58 Urine Blood Trace (Negative) H 03/09/18 10:58 H. influenzae (PCR) DETECTED (Not Detect) A 03/09/18 11:58 - Microbiology Findings Microbiology Findings: Microbiology, Last 48 Hours 03/11/18 22:20 Sputum Culture - Final Sputum - Clinical Findings Intake & Output: Intake & Output 03/11/18 03/12/18 03/12/18 23:59 07:59 15:59 Intake Total 1320 / 1320 448 / 448 Output Total 1267 / 1267 1386 / 1386 Balance 53 / 53 -938 / -938 Weight 124.5 kg - VTE Documentation of Mechanical Device: Intermittent pneumatic compression device
[2018-03-12] MEDS: Chlorhexidine Rinse 15 ML MOUTHWASH MM SCH ×2 (08:32→20:15)
[2018-03-12] MEDS: Pantoprazole 40 MG VIAL IVP SCH (08:33)
[2018-03-12] MEDS: Sucralfate 1 GM TABLET PO SCH (08:34)
--- NOTE | 2018-03-12 09:39 | Nephrology Progress Note ---
Date of Encounter: 03/12/18 Time of Encounter: 09:05 - Assessment and Plan (1) ELLIOT (acute kidney injury) Current Visit: Yes Status: Acute ELLIOT in setting of sepsis, pneumonia, H Flu, STEMI, contrast nephropathy. Oliguric. Hyperkalemia related to ELLIOT. K+ stable. Urine sodium 12, too high, not compatable with hepatorenal syndrome.. Continue CVVH. Avoid nephrotoxins, Accurate I&O's. Will continue to monitor. Subjective Principal diagnosis: Acute respiratory failure, PNA, STEMI, Cirrhosis Interval history: Remains intubated,lightly sedated,no pressors. FIO2 [id number].Arouses when name called,nods head to questions. CVVH.Documented urine output 273,though nursing states only 35 cc over past several hours. Objective - Vital Signs Vital signs: Vital Signs Temp Pulse Resp BP Pulse Ox 03/12/18 09:00 54 20 116/63 96 03/12/18 08:00 97.3 F L 54 18 104/54 99 03/12/18 07:07 24 104/54 99 03/12/18 07:00 48 24 111/63 100 03/12/18 06:00 46 24 111/63 100 03/12/18 05:00 46 24 90/64 98 03/12/18 04:55 24 100 03/12/18 04:00 97.4 F L 46 25 105/61 99 03/12/18 03:00 44 24 100/52 100 03/12/18 02:59 24 99 03/12/18 02:00 43 24 107/53 98 03/12/18 01:00 44 24 118/59 96 03/12/18 00:17 24 95 03/12/18 00:00 97.5 F L 46 24 109/51 95 03/11/18 23:00 49 24 124/52 93 03/11/18 22:00 44 24 96/53 91 03/11/18 21:43 24 93 03/11/18 21:00 45 24 90/45 91 03/11/18 20:00 97.4 F L 47 24 79/41 97 03/11/18 19:35 24 98 03/11/18 19:00 48 24 94/49 98 03/11/18 18:00 98.1 F 50 24 88/47 98 03/11/18 17:00 51 24 90/46 100 03/11/18 16:00 98.1 F 53 24 86/47 100 03/11/18 15:40 24 87/48 100 03/11/18 15:00 53 24 85/43 100 03/11/18 14:00 56 24 89/44 100 03/11/18 13:12 24 100 03/11/18 13:00 58 24 94/45 100 03/11/18 12:00 58 24 108/50 97 03/11/18 11:47 98.3 F 03/11/18 11:20 24 93/49 100 03/11/18 11:00 62 18 115/50 94 03/11/18 10:00 98.2 F 63 18 121/52 93 Intake and Output 03/11/18 03/12/18 03/12/18 23:59 07:59 15:59 Intake Total 1320 / 1320 448 / 448 Output Total 1620 / 1620 1386 / 1386 100 / 100 Balance -300 / -300 -938 / -938 -100 / -100 Intake: IV Fluids 570 / 570 448 / 448 PrismaSATE BGK 4/2.5 5,000 ML @ 0 / 0 0 / 0 2000 mls/hr CRRT CONT [facility] Rx#: [id number] PRECEDEX Premix 400 mcg In 100 60 / 60 ml @ 0.3 MCG/KG/HR 9.355 mls/hr IVC .[id number] [facility] Rx#: [id number] FentaNYL (PF) 1,000 MCG In 0.9 20 / 20 100 / 100 % Sodium Chloride 80 ML @ 50 MCG/HR 5 mls/hr IVC CONT [facility] Rx #:[id number] HumuLIN R 100 UNIT In 0.9 % 61 / 61 44 / 44 Sodium Chloride 100 ML @ 7.74 UNIT/HR 7.81 mls/hr IVC CONT [facility] Rx#:[id number] Levophed 4 MG In Dextrose 5% 79 / 79 204 / 204 250 ML @ 2 MCG/MIN 7.62 mls/hr IVC CONT [facility] Rx#:[id number] Zosyn 3.375 GM In 0.9 % Sodium 100 / 100 100 / 100 Chloride (Mini-Bag +) 100 ML @ 25 mls/hr IVPB Q8HR [facility] Rx#: [id number] Vancocin 1,000 MG In 0.9 % 250 / 250 Sodium Chloride 250 ML @ 167 mls/hr IVPB ONCE ONE Rx#: [id number] Oral 0 / 0 0 / 0 Other 750 / 750 Output: Lynette 1342 / 1342 807 / 807 90 / 90 Rectal Tube 200 / 200 550 / 550 Catheter 78 / 78 29 / 29 10 / 10 Other: Stool Consistency liquid liquid Stool Color Brown Brown Weight 124.5 kg Blood Glucose* 119 127 124 Patient Weight 03/12/18 23:59 Weight 124.5 kg - General Appearance General appearance: Present: well-developed, well-nourished, appears started age , obese EENT: Present: mucous membranes moist Neck: Present: no JVD Respiratory: Present: clear Cardiology: Present: edema, regular rate, regular rhythm Additional Comments: mild LE pitting Dialysis Vascular Access: Venous Catheter Gastrointestinal: Present: normoactive bowel sounds Integumentary: Present: warm and dry - Lab 03/12/18 03:55 03/12/18 03:55 Most recent lab results ABG pH 7.33 pH Units (7.32-7.45) D 03/11/18 15:39 ABG pCO2 51 mmHg (35-45) H D 03/11/18 15:39 ABG pO2 248 mmHg (85-104) H D 03/11/18 15:39 ABG HCO3 27 mEq/L (21-27) 03/11/18 15:39 ABG O2 Saturation 100 % (95-98) H 03/11/18 15:39 Calcium 8.4 mg/dL (8.6-10.3) L 03/12/18 03:55 Phosphorus 7.0 mg/dL (2.7-4.5) H 03/11/18 09:56 Magnesium 2.3 mg/dL (1.6-2.6) 03/11/18 16:22 Urine Sodium 12.0 mEq/L 03/11/18 09:19 - VTE Documentation of Mechanical Device: Intermittent pneumatic compression device Consult Discharge Plan - Plan Referrals: Derick Ellis DO [Primary Care Provider] -
[2018-03-12 09:48] LABS: Phosphorous 3.7 mg/dL (2.7-4.5)
[2018-03-12 10:20] LABS: ABG Base Excess -1 mEq/L (-2 to 3); ABG HCO3 27 mEq/L (21-27); ABG Oxygen Saturation 96 % (95-98); ABG PCO2 60 mmHg (35-45); ABG PH 7.27 pH Units (7.32-7.45); ABG PO2 100 mmHg (85-104); ABG TCO2 29 mEq/L (20-26); Blood Gas Modality ASSIST CONTROL; Blood Gas PEEP 5 cm H2O; Blood Gas Respiration Rate 165; Blood Gas VT 430 cc
[2018-03-12] MEDS: Albumin 25% 25gram/100mL 25 GM/100 ML IV.SOLN IVPB SCH ×2 (11:24→16:48)
[2018-03-12] MEDS: 0.9 % Sodium Chloride 1,000 ML PRIME SCH ×2 (20:00→20:18)
[2018-03-12] MEDS: Dexmedetomidine HCl 400 MCG/100 ML MLS IVC SCH ×3 (20:16→20:18)
[2018-03-13] MEDS: Albumin 25% 25gram/100mL 25 GM/100 ML IV.SOLN IVPB SCH ×4 (00:01→18:17)
[2018-03-13] MEDS: 0.9 % Sodium Chloride 1,000 ML PRIME SCH ×3 (01:56→20:46)
[2018-03-13] MEDS: FentaNYL (PF) 1,000 MCG in 0.9 % Sodium Chloride 80 ML IVC SCH ×5 (03:21→23:12)
[2018-03-13] MEDS: PrismaSATE BGK 4/2.5 5,000 ML CRRT SCH ×10 (04:04→22:25)
[2018-03-13 04:09] LABS: ABG Base Excess 1 mEq/L (-2 to 3); ABG HCO3 28 mEq/L (21-27); ABG Oxygen Saturation 95 % (95-98); ABG PCO2 63 mmHg (35-45); ABG PH 7.26 pH Units (7.32-7.45); ABG PO2 88 mmHg (85-104); ABG TCO2 30 mEq/L (20-26); Blood Gas Modality ASSIST CONTROL; Blood Gas PEEP 5 cm H2O; Blood Gas Respiration Rate 20; Blood Gas VT 450 cc
[2018-03-13 04:15] LABS: Basophils % 0.3 %; Eosinophils % 0.6 %; Red Cell Distribution Width 15.9 % (11.5-14.5)
[2018-03-13 04:17] LABS: Hematocrit 30.3 % (37.5-50.1); Hemoglobin 9.3 g/dL (12.9-16.9); Immature Granulocytes % 3.5 % (0-4); Immature Platelets 4.6 % (1.1-6.1); Lymphocytes # 0.3 K/mcL (0.6-4.6); Lymphocytes % 9.1 %; Mean Corpuscular HGB Conc 30.7 g/dL (31.6-35.5); Mean Corpuscular Hemoglobin 29.2 pg (28.0-33.3); Mean Platelet Volume 10.4 fL (9.4-12.4); Monocytes # 0.3 K/mcL (0.0-1.3); Monocytes % 9.7 %; Neutrophils # 2.6 K/mcL (1.6-8.9); Nucleated Red Blood Cells 1.2 /100 WBC (0); Red Blood Count 3.19 M/mcL (4.19-5.50); Segmented Neutrophils % 76.8 %
[2018-03-13 04:25] LABS: Platelet Count 53 K/mcL (140-400)
[2018-03-13 04:34] LABS: Calcium 8.1 mg/dL (8.6-10.3); Potassium 4.4 mEq/L (3.5-5.1)
[2018-03-13] MEDS: *HR* Heparin 5,000 UNIT/ML VIAL SQ SCH ×2 (05:43→18:17)
[2018-03-13] MEDS: Dexmedetomidine HCl 400 MCG/100 ML MLS IVC SCH ×2 (07:54→17:06)
[2018-03-13] MEDS: Norepinephrine 4 MG in D5% in Water 250 ML IVC SCH (07:54)
[2018-03-13] MEDS: cefTRIAXone 1,000 MG in Water for inj. (sterile) 20 ML 10 ML IVP SCH (07:55)
[2018-03-13] MEDS: Lacri-Lube 3.5 GM TUBE BOTH EYES SCH (07:56)
[2018-03-13] MEDS ORDERED: Furosemide 40 MG/4 ML VIAL IVP ONE (07:57)
[2018-03-13] MEDS: Piperacillin/Tazobactam 3.375 GM in 0.9 % Sodium Chloride Mini Bag 100 ML IVPB SCH ×3 (08:18→15:50)
[2018-03-13] MEDS: Chlorhexidine Rinse 15 ML MOUTHWASH MM SCH ×2 (08:19→20:46)
[2018-03-13] MEDS: Pantoprazole 40 MG VIAL IVP SCH (08:19)
[2018-03-13] MEDS: Insulin LISPRO 300 UNITS/3 ML VIAL SQ SCH ×3 (08:19→15:50)
--- NOTE | 2018-03-13 08:20 | Pulmonology Progress Note ---
<KumarJoshKartik W - Last Filed: 03/13/18 10:36> Date of Encounter: 03/13/18 Objective PUL Vital signs: Last Vital Signs Temp 98.1 F 03/13/18 08:00 Pulse 56 03/13/18 10:00 Resp 22 03/13/18 10:00 BP 108/53 03/13/18 10:00 Pulse Ox 97 03/13/18 10:00 Ventilator Settings Ventilator Settings: Ventilator Settings, Last 8 Hours Ventilator Tidal Volume 430 Setting Ventilator Tidal Volume 430 Setting Ventilator Tidal Volume 430 Setting Ventilator Tidal Volume 430 Setting Ventilator Tidal Volume 430 Setting Ventilator Tidal Volume 430 Setting Ventilator Tidal Volume 430 Setting Ventilator Tidal Volume 430 Setting Ventilator Tidal Volume 430 Setting Ventilator Tidal Volume 430 Setting Ventilator Respiratory Rate 22 Setting Ventilator Respiratory Rate 22 Setting Ventilator Respiratory Rate 22 Setting Ventilator Respiratory Rate 20 Setting Ventilator Respiratory Rate 20 Setting Ventilator Respiratory Rate 20 Setting Ventilator Respiratory Rate 20 Setting Ventilator Respiratory Rate 20 Setting Ventilator Respiratory Rate 20 Setting Ventilator Respiratory Rate 20 Setting Actual Respiratory Rate 22 Actual Respiratory Rate 23 Actual Respiratory Rate 27 Actual Respiratory Rate 13 Actual Respiratory Rate 23 Actual Respiratory Rate 23 Actual Respiratory Rate 22 Actual Respiratory Rate 20 Actual Respiratory Rate 23 Actual Respiratory Rate 23 Positive End Expiratory 5 Pressure Positive End Expiratory 5 Pressure Positive End Expiratory 5 Pressure Positive End Expiratory 5 Pressure Positive End Expiratory 5 Pressure Positive End Expiratory 5 Pressure Positive End Expiratory 5 Pressure Positive End Expiratory 5 Pressure Positive End Expiratory 5 Pressure Positive End Expiratory 5 Pressure Peak Inspiratory Airway 31 Pressure Peak Inspiratory Airway 26 Pressure Peak Inspiratory Airway 8.5 Pressure Peak Inspiratory Airway 9 Pressure Peak Inspiratory Airway 8 Pressure Peak Inspiratory Airway 25 Pressure Peak Inspiratory Airway 17 Pressure Peak Inspiratory Airway 28 Pressure Peak Inspiratory Airway 8 Pressure Results - Laboratory Findings CBC and BMP: 03/13/18 03:45 03/13/18 03:45 ABG ABG pH 7.26 pH Units (7.32-7.45) L 03/13/18 04:04 ABG pCO2 63 mmHg (35-45) H 03/13/18 04:04 ABG pO2 88 mmHg (85-104) 03/13/18 04:04 ABG O2 Saturation 95 % (95-98) 03/13/18 04:04 PT/INR, D-dimer PT 12.7 Seconds (9.4-12.1) H 03/11/18 03:57 Abnormal lab findings: Abnormal lab results WBC 3.4 K/mcL (4.3-11.1) L 03/13/18 03:45 RBC 3.19 M/mcL (4.19-5.50) L 03/13/18 03:45 Hgb 9.3 g/dL (12.9-16.9) L D 03/13/18 03:45 Hct 30.3 % (37.5-50.1) L 03/13/18 03:45 MCHC 30.7 g/dL (31.6-35.5) L 03/13/18 03:45 RDW 15.9 % (11.5-14.5) H 03/13/18 03:45 Plt Count 53 K/mcL (140-400) L 03/13/18 03:45 Band Neutrophils % 16.0 % (0-4) H 03/09/18 10:38 Metamyelocytes % 10.0 % (0) H 03/09/18 10:38 Lymphocytes # 0.3 K/mcL (0.6-4.6) L 03/13/18 03:45 Nucleated RBCs/100 WBC 1.2 /100 WBC (0) H 03/13/18 03:45 Reactive Lymphocytes Present (Not Present) A 03/09/18 10:38 Platelet Estimate Decreased (Normal) L 03/10/18 00:57 PT 12.7 Seconds (9.4-12.1) H 03/11/18 03:57 ABG pH 7.26 pH Units (7.32-7.45) L 03/13/18 04:04 ABG pCO2 63 mmHg (35-45) H 03/13/18 04:04 ABG HCO3 28 mEq/L (21-27) H 03/13/18 04:04 ABG Total CO2 30 mEq/L (20-26) H 03/13/18 04:04 BUN 41 mg/dL (6-20) H 03/13/18 03:45 Creatinine 2.36 mg/dL (0.70-1.30) H 03/13/18 03:45 Est GFR ( Amer) 35 (> 60) L 03/13/18 03:45 Est GFR (Non-Af Amer) 29 (> 60) L 03/13/18 03:45 Glucose 178 mg/dL (70-105) H 03/13/18 03:45 POC Glucose 161 mg/dL (70-99) H 03/13/18 04:15 Calculated Osmolality 301 (280-300) H 03/13/18 03:45 Calcium 8.1 mg/dL (8.6-10.3) L 03/13/18 03:45 Total Bilirubin 2.1 mg/dL (0.3-1.0) H 03/11/18 09:56 Direct Bilirubin 0.9 mg/dL (0.0-0.2) H 03/11/18 09:56 AST 47 Units/L (13-39) H 03/11/18 09:56 Ammonia 64 mcmol/L (16-53) H 03/12/18 03:55 Troponin I 0.05 ng/mL (< 0.04) H* 03/11/18 12:08 B-Natriuretic Peptide 755 pg/mL (Less than 100) H 03/10/18 00:57 Triglycerides 166 mg/dL (< 150) H 03/10/18 00:57 VLDL Cholesterol, Calc 33 mg/dL (< 31) H 03/10/18 00:57 HDL Cholesterol 33 mg/dL (40-59) L 03/10/18 00:57 Lipase 5 Units/L (11-82) L 03/09/18 10:38 Ur Specific [place] > 1.030 (1.010-1.025) H 03/09/18 10:58 Urine Protein 30 mg/dL (Neg-Trace) H 03/09/18 10:58 Urine Glucose (UA) >=1000 mg/dL (Normal) H 03/09/18 10:58 Urine Ketones Trace mg/dL (Negative) H 03/09/18 10:58 Urine Blood Trace (Negative) H 03/09/18 10:58 H. influenzae (PCR) DETECTED (Not Detect) A 03/09/18 11:58 - Microbiology Findings Microbiology Findings: Microbiology, Last 48 Hours 03/11/18 22:20 Sputum Culture - Final Sputum - Clinical Findings Intake & Output: Intake & Output 03/12/18 03/13/18 03/13/18 23:59 07:59 15:59 Intake Total 306.4 / 306.4 465.8 / 465.8 79.8 / 79.8 Output Total 923 / 923 577 / 577 445 / 445 Balance -616.6 / -616.6 -111.2 / -111.2 -365.2 / -365.2 Weight 125.1 kg Consult Discharge Plan - Plan Referrals: Derick Ellis DO [Primary Care Provider] - - Attending Attestation I examined this patient and my medical decision-making was reviewed with the Resident Physician. I agree with the documented findings, disposition and treatment plan as described except to the extent set forth below. We independently had [id number] contact with the patient Patient seen and examined at bedside Labs, radiology, chart personally reviewed. Management was reviewed during multidisciplinary critical care rounds. TRAUMA DOCTOR: The patient remains on minimal amount of sedation with fentanyl and Precedex. He is able to open his eyes and follow commands. Without sedation he remains significantly agitated continue sedation for goal [place] score 2-3 continue daily spontaneous awake trial Pulm: Acute hypoxic hypercapnic respiratory failure which is secondary to pneumonia and cardiogenic pulmonary edema. ABG today shows persistent respiratory acidosis which is suspect is in large part related to cardiogenic pulmonary edema this was validated by repeat chest x-ray this morning which showed increasing evidence of interstitial edema. Patient is not a candidate for spontaneous breathing trial today because of incompletely treated condition. We will increase volume removals for renal replacement an effort to mitigate the effects of pulmonary edema. Continue antibiotics for treatment of pneumonia Cards: Blood pressure remains stable heart rate controlled. He is being evaluated by cardiology for STEMI but conservative management was recommended FEN-GI: Nothing by mouth for now history of esophageal varices and decompensated cirrhosis GI following Renal: Acute kidney injury possible hepatorenal syndrome on continuous renal replacement therapy patient is trying to make some urine which is encouraging. Given volume overload will continue albumin and will give a dose of Lasix diuresis today to see if any improvement in urine output continue daily monitoring of electrolytes and replacement per protocol medications will be renally dosed by pharmacy ID: Haemophilus bacteremia on antibiotics white count has trended down he is now actually leukopenic. No fever over the last 48 hours continue treatment for at least 10 days and likely 14 based upon clinical course Heme/Onc: DVT prophylaxis given he was switched to SCDs overnight because of decrease in platelets however they remaining greater than 50 risk of venous thromboembolism in my opinion outweighs bleeding risk at this time and so we will restart the cutaneous heparin if hemoglobin remained stable today Endo: Glucose Monitored his had severe hyperglycemia since admission to the ICU and is on insulin infusion will continue this until he is extubated and able to take by mouth Integ/MSK: Skin Care per routine ICU Nursing Protocol to prevent ulcers. Lines: All lines examined without evidence of infection : Dispo: Remain in ICU for ventilator management CODE: Full code <Miguel Molina - Last Filed: 03/13/18 13:02> Date of Encounter: 03/13/18 Time of Encounter: 09:00 Assessment and Plan (1) Acute respiratory failure with hypercapnia Current Visit: Yes Status: Acute Likely secondary to cardiogenic pulmonary edema. Patient displaying good fluid balance at -1896 Patient is awake and alert. Able to follow commands. Vitals stable. Good O2 saturations. ABG showed pH of 7.26. PCO2 had risen from 60-63 since yesterday. Respiratory rate was increased on vent setting from 20-22. No plan for extubation today. - Given dose of 40 Lasix IV. (2) Pneumonia Current Visit: Yes Status: Acute WBC within normal range. Blood cultures positive for Haemophilus. Sputum culture samples were rejected. On day 3 of Zosyn. - Continue antibiotics. Qualifiers: Pneumonia type: due to unspecified organism Laterality: bilateral Lung location: unspecified part of lung Qualified Code(s): J18.9 - Pneumonia, unspecified organism (3) STEMI (ST elevation myocardial infarction) Current Visit: Yes Status: Acute Continues to have STEMI on telemetry. On rectal ASA. Cardiology consulted and current recommendation is to hold off on acute intervention and holding off on the heparin drip given patient's sepsis, PNA, and history of esophageal varicies. - Continue rectal ASA. - Continue to hold heparin drip. Qualifiers: Qualified Code(s): I21.3 - ST elevation (STEMI) myocardial infarction of unspecified site (4) Decompensation of cirrhosis of liver Current Visit: Yes Status: Acute History of cirrhosis. RUQ US shows cholelithiasis with nonspecific gallbladder wall thickening and cirrhosis with stigmata of portal hypertension. CT shows nodularity of the liver. Patient is alert and awake and able to follow commands. Platelet level has dropped from 77 down to 53 today. (5) Hepatic encephalopathy Current Visit: Yes Status: Acute Resolved. Patient alert and awake and able to follow commands. - Continue lactulose RC. - Plan for by mouth rifaximin once patient is extubated. (6) Esophageal varices without bleeding Current Visit: Yes Status: Acute History of esophageal varices per recent egd. endoscopy 03/02/18 Single 35mm sessile polyp removed and sent for biopsy. Gastric polyp removed and sent for biopsy. grade I esophageal varicies. Gastroenterology seeing in consultation. Hemoglobin stable at 9.3. No signs of hemoptysis or hematemesis. GI has no plans for EGD or OG tube placement at this point due to risk of perforation. We will consider EGD if patient presents with signs of esophageal bleeding. Qualifiers: Esophageal varices type: secondary Qualified Code(s): I85.10 - Secondary esophageal varices without bleeding (7) Thrombocytopenia Current Visit: Yes Status: Acute Secondary to decompensated cirrhosis. Platelet level dropped from 77 down to 53 today. (8) ELLIOT (acute kidney injury) Current Visit: Yes Status: Acute Baseline creatinine from 0.9-1.0. Creatinine continues to improve from yesterday from 3 to 2.36. ELLIOT in setting of sepsis, PNA, STEMI, and contrast nephropathy. Concern for hepatorenal syndrome. Patient was given octrotide and albumin. Nephrology was consulted. Patient on BALBINA dialysis. - avoid nephrotoxins. - Accurate I/O's. - Continue dialysis. (9) DVT prophylaxis Current Visit: Yes Status: Acute On heparin 5000 U SQ BID. Subjective Principal diagnosis: Acute respiratory failure, PNA, STEMI, Cirrhosis Interval history: Patient is alert and awake although was more somnolent due to increase in sedation. He was able to follow commands and answer questions appropriately. He currently denies any chest pain. Admits to some nausea. Admits to some minor diffuse abdominal pain. Denies any fever or chills. Objective PUL Vital signs: Last Vital Signs Temp 97.5 F L 03/13/18 04:00 Pulse 67 03/13/18 07:00 Resp 13 03/13/18 07:24 BP 144/63 03/13/18 07:24 Pulse Ox 93 03/13/18 07:24 General appearance: no acute distress, other (Intubated.) Eyes: nonicteric ENT: oropharynx moist Neck: supple Effort: normal Auscultation: bilateral: clear Percussion: bilateral: not dull Tactile fremitus: bilateral: normal Cardiovascular: regular rate and rhythm Gastrointestinal: normoactive bowel sounds, soft, non-tender, non-distended Integumentary: normal Extremities: no cyanosis, no edema, no clubbing, pink and warm, pulses normal, no ischemia or petechiae Musculoskeletal: no deformities other (Alert and awake and following commands.) mood appropriate, affect normal Ventilator Settings Ventilator Settings: Ventilator Settings, Last 8 Hours Ventilator Tidal Volume 430 Setting Ventilator Tidal Volume 430 Setting Ventilator Tidal Volume 430 Setting Ventilator Tidal Volume 430 Setting Ventilator Tidal Volume 430 Setting Ventilator Tidal Volume 430 Setting Ventilator Tidal Volume 430 Setting Ventilator Tidal Volume 430 Setting Ventilator Tidal Volume 430 Setting Ventilator Tidal Volume 430 Setting Ventilator Respiratory Rate 22 Setting Ventilator Respiratory Rate 20 Setting Ventilator Respiratory Rate 20 Setting Ventilator Respiratory Rate 20 Setting Ventilator Respiratory Rate 20 Setting Ventilator Respiratory Rate 20 Setting Ventilator Respiratory Rate 20 Setting Ventilator Respiratory Rate 20 Setting Ventilator Respiratory Rate 20 Setting Ventilator Respiratory Rate 20 Setting Actual Respiratory Rate 27 Actual Respiratory Rate 13 Actual Respiratory Rate 23 Actual Respiratory Rate 23 Actual Respiratory Rate 22 Actual Respiratory Rate 20 Actual Respiratory Rate 23 Actual Respiratory Rate 23 Actual Respiratory Rate 26 Actual Respiratory Rate 25 Positive End Expiratory 5 Pressure Positive End Expiratory 5 Pressure Positive End Expiratory 5 Pressure Positive End Expiratory 5 Pressure Positive End Expiratory 5 Pressure Positive End Expiratory 5 Pressure Positive End Expiratory 5 Pressure Positive End Expiratory 5 Pressure Positive End Expiratory 5 Pressure Positive End Expiratory 5 Pressure Peak Inspiratory Airway 8.5 Pressure Peak Inspiratory Airway 9 Pressure Peak Inspiratory Airway 8 Pressure Peak Inspiratory Airway 25 Pressure Peak Inspiratory Airway 17 Pressure Peak Inspiratory Airway 28 Pressure Peak Inspiratory Airway 8 Pressure Peak Inspiratory Airway 8 Pressure Peak Inspiratory Airway 8 Pressure Results - Laboratory Findings CBC and BMP: 03/13/18 03:45 03/13/18 03:45 ABG ABG pH 7.26 pH Units (7.32-7.45) L 03/13/18 04:04 ABG pCO2 63 mmHg (35-45) H 03/13/18 04:04 ABG pO2 88 mmHg (85-104) 03/13/18 04:04 ABG O2 Saturation 95 % (95-98) 03/13/18 04:04 PT/INR, D-dimer PT 12.7 Seconds (9.4-12.1) H 03/11/18 03:57 Abnormal lab findings: Abnormal lab results WBC 3.4 K/mcL (4.3-11.1) L 03/13/18 03:45 RBC 3.19 M/mcL (4.19-5.50) L 03/13/18 03:45 Hgb 9.3 g/dL (12.9-16.9) L D 03/13/18 03:45 Hct 30.3 % (37.5-50.1) L 03/13/18 03:45 MCHC 30.7 g/dL (31.6-35.5) L 03/13/18 03:45 RDW 15.9 % (11.5-14.5) H 03/13/18 03:45 Plt Count 53 K/mcL (140-400) L 03/13/18 03:45 Band Neutrophils % 16.0 % (0-4) H 03/09/18 10:38 Metamyelocytes % 10.0 % (0) H 03/09/18 10:38 Lymphocytes # 0.3 K/mcL (0.6-4.6) L 03/13/18 03:45 Nucleated RBCs/100 WBC 1.2 /100 WBC (0) H 03/13/18 03:45 Reactive Lymphocytes Present (Not Present) A 03/09/18 10:38 Platelet Estimate Decreased (Normal) L 03/10/18 00:57 PT 12.7 Seconds (9.4-12.1) H 03/11/18 03:57 ABG pH 7.26 pH Units (7.32-7.45) L 03/13/18 04:04 ABG pCO2 63 mmHg (35-45) H 03/13/18 04:04 ABG HCO3 28 mEq/L (21-27) H 03/13/18 04:04 ABG Total CO2 30 mEq/L (20-26) H 03/13/18 04:04 BUN 41 mg/dL (6-20) H 03/13/18 03:45 Creatinine 2.36 mg/dL (0.70-1.30) H 03/13/18 03:45 Est GFR ( Amer) 35 (> 60) L 03/13/18 03:45 Est GFR (Non-Af Amer) 29 (> 60) L 03/13/18 03:45 Glucose 178 mg/dL (70-105) H 03/13/18 03:45 POC Glucose 161 mg/dL (70-99) H 03/13/18 04:15 Calculated Osmolality 301 (280-300) H 03/13/18 03:45 Calcium 8.1 mg/dL (8.6-10.3) L 03/13/18 03:45 Total Bilirubin 2.1 mg/dL (0.3-1.0) H 03/11/18 09:56 Direct Bilirubin 0.9 mg/dL (0.0-0.2) H 03/11/18 09:56 AST 47 Units/L (13-39) H 03/11/18 09:56 Ammonia 64 mcmol/L (16-53) H 03/12/18 03:55 Troponin I 0.05 ng/mL (< 0.04) H* 03/11/18 12:08 B-Natriuretic Peptide 755 pg/mL (Less than 100) H 03/10/18 00:57 Triglycerides 166 mg/dL (< 150) H 03/10/18 00:57 VLDL Cholesterol, Calc 33 mg/dL (< 31) H 03/10/18 00:57 HDL Cholesterol 33 mg/dL (40-59) L 03/10/18 00:57 Lipase 5 Units/L (11-82) L 03/09/18 10:38 Ur Specific [place] > 1.030 (1.010-1.025) H 03/09/18 10:58 Urine Protein 30 mg/dL (Neg-Trace) H 03/09/18 10:58 Urine Glucose (UA) >=1000 mg/dL (Normal) H 03/09/18 10:58 Urine Ketones Trace mg/dL (Negative) H 03/09/18 10:58 Urine Blood Trace (Negative) H 03/09/18 10:58 H. influenzae (PCR) DETECTED (Not Detect) A 03/09/18 11:58 - Microbiology Findings Microbiology Findings: Microbiology, Last 48 Hours 03/11/18 22:20 Sputum Culture - Final Sputum - Clinical Findings Intake & Output: Intake & Output 03/12/18 03/13/18 03/13/18 23:59 07:59 15:59 Intake Total 306.4 / 306.4 465.8 / 465.8 Output Total 923 / 923 577 / 577 Balance -616.6 / -616.6 -111.2 / -111.2 Weight 125.1 kg - VTE Documentation of Mechanical Device: Intermittent pneumatic compression device
[2018-03-13] MEDS: Insulin Human Regular 100 UNIT in 0.9 % Sodium Chloride 100 ML IVC SCH (09:31)
[2018-03-13] MEDS: Lactulose 200 GM, Sodium Chloride IRRigation 700 ML RC SCH (10:27)
--- NOTE | 2018-03-13 10:43 | Nephrology Progress Note ---
Date of Encounter: 03/13/18 Time of Encounter: 10:25 - Assessment and Plan (1) ELLIOT (acute kidney injury) Current Visit: Yes Status: Acute ELLIOT in setting of sepsis, pneumonia, H Flu, STEMI, contrast nephropathy. Oliguric. Hyperkalemia related to ELLIOT. K+ stable. Urine sodium 12, too high, not compatable with hepatorenal syndrome.. Continue CVVH. Avoid nephrotoxins, Accurate I&O's. Will continue to monitor. Subjective Principal diagnosis: Acute respiratory failure, PNA, STEMI, Cirrhosis Interval history: Remains intubated. CVVH. Volume removal -100cc. Documented urine output 193. Objective - Vital Signs Vital signs: Vital Signs Temp Pulse Resp BP Pulse Ox 03/13/18 10:00 56 22 108/53 97 03/13/18 09:10 22 106/52 93 03/13/18 09:00 59 22 106/52 93 03/13/18 08:00 98.1 F 58 23 142/73 90 03/13/18 07:24 13 144/63 93 03/13/18 07:00 67 12 149/64 92 03/13/18 06:32 12 03/13/18 06:26 22 155/63 89 03/13/18 06:00 79 23 150/75 90 03/13/18 05:00 75 22 155/65 91 03/13/18 04:00 97.5 F L 74 20 119/58 91 03/13/18 03:26 23 150/54 94 03/13/18 03:00 69 23 149/61 91 03/13/18 02:00 72 26 148/61 91 03/13/18 01:00 71 24 136/74 91 03/13/18 00:15 98.0 F 68 25 151/64 95 03/13/18 00:01 25 151/64 95 03/12/18 23:00 55 20 100/49 95 03/12/18 22:30 56 22 107/44 93 03/12/18 21:00 58 21 116/57 97 03/12/18 20:26 23 90/79 98 03/12/18 20:00 97.7 F 58 24 110/50 96 03/12/18 19:00 56 20 90/79 95 03/12/18 18:34 20 103/50 93 03/12/18 18:00 56 20 103/50 97 03/12/18 17:00 56 20 108/56 97 03/12/18 16:42 20 98/53 98 03/12/18 16:00 97.4 F L 56 20 98/53 96 03/12/18 15:22 21 98/53 97 03/12/18 15:00 56 24 108/52 100 03/12/18 14:00 60 24 109/55 88 03/12/18 13:00 55 22 109/54 97 03/12/18 12:00 97.4 F L 58 22 106/54 93 03/12/18 11:06 23 106/54 95 03/12/18 11:00 55 22 98/48 96 Intake and Output 03/12/18 03/13/18 03/13/18 23:59 07:59 15:59 Intake Total 306.4 / 306.4 465.8 / 465.8 79.8 / 79.8 Output Total 923 / 923 577 / 577 445 / 445 Balance -616.6 / -616.6 -111.2 / -111.2 -365.2 / -365.2 Intake: IV Fluids 306.4 / 306.4 465.8 / 465.8 79.8 / 79.8 PrismaSATE BGK 4/2.5 5,000 ML @ 0 / 0 0 / 0 2000 mls/hr CRRT CONT SHALONDA Rx#: [id number] FentaNYL (PF) 1,000 MCG In 0.9 100 / 100 150 / 150 72.7 / 72.7 % Sodium Chloride 80 ML @ 50 MCG/HR 5 mls/hr IVC CONT SHALONDA Rx #:[id number] HumuLIN R 100 UNIT In 0.9 % 6.4 / 6.4 15.8 / 15.8 7.1 / 7.1 Sodium Chloride 100 ML @ 7.74 UNIT/HR 7.81 mls/hr IVC CONT SHALONDA Rx#:[id number] Flexbumin 25 gm In 100 ml @ 60 100 / 100 200 / 200 mls/hr IVPB Q6HR SHALONDA Rx#: [id number] Zosyn 3.375 GM In 0.9 % Sodium 100 / 100 100 / 100 Chloride (Mini-Bag +) 100 ML @ 25 mls/hr IVPB Q8HR SHALONDA Rx#: [id number] Output: Lynette 834 / 834 497 / 497 403 / 403 Rectal Tube Catheter 89 / 89 80 / 80 32 / 32 Other: Stool Consistency loose Stool Characteristics Mucoid Stool Color Brown Yellow Weight 125.1 kg Blood Glucose* 158 168 139 Patient Weight 03/13/18 23:59 Weight 125.1 kg - General Appearance General appearance: Present: well-developed, well-nourished, appears started age , obese EENT: Present: mucous membranes moist Neck: Present: no JVD Additional Comments: harsh Cardiology: Present: edema, regular rate, regular rhythm Additional Comments: mild-1+ Dialysis Vascular Access: Venous Catheter Gastrointestinal: Present: hypoactive bowel sounds, distended Integumentary: Present: warm and dry - Lab 03/13/18 03:45 03/13/18 03:45 Most recent lab results ABG pH 7.26 pH Units (7.32-7.45) L 03/13/18 04:04 ABG pCO2 63 mmHg (35-45) H 03/13/18 04:04 ABG pO2 88 mmHg (85-104) 03/13/18 04:04 ABG HCO3 28 mEq/L (21-27) H 03/13/18 04:04 ABG O2 Saturation 95 % (95-98) 03/13/18 04:04 Calcium 8.1 mg/dL (8.6-10.3) L 03/13/18 03:45 Phosphorus 3.7 mg/dL (2.7-4.5) 03/12/18 03:55 Magnesium 2.3 mg/dL (1.6-2.6) 03/11/18 16:22 Urine Sodium 12.0 mEq/L 03/11/18 09:19 - VTE Documentation of Mechanical Device: Intermittent pneumatic compression device Consult Discharge Plan - Plan Referrals: Derick Ellis DO [Primary Care Provider] -
[2018-03-13] MEDS ORDERED: *HR* Heparin 5,000 UNIT/ML VIAL ONE (10:54)
[2018-03-13 13:13] LABS: Eosinophils % 0.6 %; Hemoglobin 9.1 g/dL (12.9-16.9); Immature Granulocytes % 4.4 % (0-4); Lymphocytes # 0.3 K/mcL (0.6-4.6); Lymphocytes % 9.8 %; Mean Corpuscular HGB Conc 31.4 g/dL (31.6-35.5); Mean Corpuscular Hemoglobin 29.7 pg (28.0-33.3); Mean Corpuscular Volume 94.8 fL (83.0-100.0); Mean Platelet Volume 10.2 fL (9.4-12.4); Monocytes # 0.4 K/mcL (0.0-1.3); Monocytes % 12.3 %; Neutrophils # 2.3 K/mcL (1.6-8.9); Nucleated Red Blood Cells 1.3 /100 WBC (0); Red Blood Count 3.06 M/mcL (4.19-5.50); Red Cell Distribution Width 15.9 % (11.5-14.5); Segmented Neutrophils % 72.9 %
[2018-03-13 13:14] LABS: Platelet Count 46 K/mcL (140-400)
[2018-03-13] MEDS ORDERED: Ipratropium/Albuterol Neb 3 ML IH PRN (13:50)
[2018-03-14] MEDS: Albumin 25% 25gram/100mL 25 GM/100 ML IV.SOLN IVPB SCH ×2 (00:14→05:18)
[2018-03-14] MEDS: Piperacillin/Tazobactam 3.375 GM in 0.9 % Sodium Chloride Mini Bag 100 ML IVPB SCH ×3 (00:15→16:10)
[2018-03-14] MEDS: FentaNYL (PF) 1,000 MCG in 0.9 % Sodium Chloride 80 ML IVC SCH ×6 (03:51→23:14)
[2018-03-14 04:28] LABS: Basophils % 0.3 %; Eosinophils % 0.9 %; Nucleated Red Blood Cells 1.8 /100 WBC (0); Red Cell Distribution Width 16.3 % (11.5-14.5); Segmented Neutrophils % 73.5 %
[2018-03-14 04:30] LABS: Hematocrit 28.7 % (37.5-50.1); Hemoglobin 8.9 g/dL (12.9-16.9); Immature Granulocytes % 5.2 % (0-4); Immature Platelets 5.6 % (1.1-6.1); Lymphocytes # 0.4 K/mcL (0.6-4.6); Lymphocytes % 11.6 %; Mean Corpuscular Hemoglobin 29.7 pg (28.0-33.3); Mean Corpuscular Volume 95.7 fL (83.0-100.0); Monocytes # 0.3 K/mcL (0.0-1.3); Monocytes % 8.5 %; Neutrophils # 2.4 K/mcL (1.6-8.9)
[2018-03-14 04:34] LABS: Platelet Count 52 K/mcL (140-400)
[2018-03-14 04:43] LABS: Albumin 4.7 g/dL (3.5-5.7); Albumin/Globulin Ratio 2.6 (1.1-2.2); Bilirubin,Direct 1.3 mg/dL (0.0-0.2); Bilirubin,Indirect 2.3 mg/dL (0.0-1.2); Bilirubin,Total 3.6 mg/dL (0.3-1.0); Calcium 7.9 mg/dL (8.6-10.3); Globulin 1.8 g/dL (2.4-3.5); Potassium 4.2 mEq/L (3.5-5.1); Total Protein 6.5 g/dL (6.4-8.9)
[2018-03-14 05:00] LABS: ABG Base Excess -1 mEq/L (-2 to 3); ABG HCO3 26 mEq/L (21-27); ABG Oxygen Saturation 94 % (95-98); ABG PCO2 55 mmHg (35-45); ABG PH 7.29 pH Units (7.32-7.45); ABG PO2 80 mmHg (85-104); ABG TCO2 28 mEq/L (20-26)
[2018-03-14] MEDS: Dexmedetomidine HCl 400 MCG/100 ML MLS IVC SCH ×2 (05:42→11:44)
[2018-03-14] MEDS: *HR* Heparin 5,000 UNIT/ML VIAL SQ SCH ×2 (05:48→18:08)
[2018-03-14] MEDS: 0.9 % Sodium Chloride 1,000 ML PRIME SCH ×2 (05:49→11:44)
[2018-03-14] MEDS: PrismaSATE BGK 4/2.5 5,000 ML CRRT SCH ×6 (06:40→23:15)
--- NOTE | 2018-03-14 07:13 | Pulmonology Progress Note ---
Date of Encounter: 03/14/18 Time of Encounter: 07:13 Assessment and Plan (1) Acute respiratory failure with hypoxia and hypercapnia Current Visit: Yes Status: Acute Patient remains intubated and on the vent. Blood gas today shows persistent respiratory acidosis. I have adjusted his vent settings to increase minute ventilation. In part I have elected to increase his tidal volume is I suspect a chronic component of alveolar hypoventilation complicated by underlying hydrostatic pulmonary edema. I have been hesitant to significantly increase his positive end expiratory pressure because of active cardiac disease. On spontaneous breathing trial today the patient became quickly tachypnea And was complaining of difficulty breathing. He will be switched back to assist control. Rest of the day currently accepting the ventilator without much difficulty (2) Encephalopathy Current Visit: Yes Status: Acute This is secondary to his underlying cirrhosis which we will continue lactulose and severe illness. He does have some evidence of delirium but rarely becomes overtly agitated. We will attempt to avoid PH[employer]ICIAN [employer] altering medications as much as possible. Currently he is tolerating Precedex in the low dose infusion of fentanyl which we will try to wean over the course of the day (3) Bacteremia Current Visit: Yes Status: Acute This is secondary to H. influenzae in his on antibiotics. I had concern initially on admission to the ICU that there could be an intra-abdominal source or possibly aspiration given encephalopathy and so that is why I have elected to treat with broad-spectrum penicillin as opposed to cephalosporin. Duration of treatment will depend on clinical course. Likely 10-14 days (4) Pneumonia Current Visit: Yes Status: Acute Patient remains on antibiotics generally appears to be making progress from this standpoint Qualifiers: Pneumonia type: due to unspecified organism Laterality: bilateral Lung location: unspecified part of lung Qualified Code(s): J18.9 - Pneumonia, unspecified organism (5) ELLIOT (acute kidney injury) Current Visit: Yes Status: Acute This is secondary to prerenal azotemia or hepatorenal syndrome. Nephrology following he remains on continuous renal replacement therapy which I suspect could be transitioned over to intermittent hemodialysis as needed. In the short -term I think the patient would benefit from ultrafiltration because of hydrostatic edema affecting his respiratory status (6) STEMI (ST elevation myocardial infarction) Current Visit: Yes Status: Acute Qualifiers: Qualified Code(s): I21.3 - ST elevation (STEMI) myocardial infarction of unspecified site (7) Decompensation of cirrhosis of liver Current Visit: Yes Status: Acute GI following. Work continue to treat for encephalopathy. No evidence of active hemorrhage. Check INR today (8) Thrombocytopenia Current Visit: Yes Status: Acute Platelets remain stable and greater than 50,000 today continue to monitor. This is secondary to his underlying liver dysfunction and suspected splenic sequestration. He also has a history of CLL (9) Esophageal varices without bleeding Current Visit: Yes Status: Acute This is stable without any evidence of active bleeding no plans from GI standpoint to perform endoscopy today. We are avoiding use of OG tube because of this reason per GI recommendations Qualifiers: Esophageal varices type: secondary Qualified Code(s): I85.10 - Secondary esophageal varices without bleeding (10) At risk for stress ulcer Current Visit: Yes Status: Acute Continue ppi (11) DVT prophylaxis Current Visit: Yes Status: Acute I have elected to continue chemical DVT prophylaxis because of his high risk of venous thromboembolism in stable heme hemoglobin/hematocrit as well as platelets without evidence of active hemorrhage Subjective Principal diagnosis: Acute respiratory failure, PNA, STEMI, Cirrhosis Interval history: Patient remains intubated but hemodynamically stable. He continues on continuous renal replacement therapy and blood pressure is been tolerating more aggressive volume removal. He is slightly less responsive today than in prior days off sedation. I evaluated him during spontaneous awake trial Objective PUL Vital signs: Last Vital Signs Temp 97.7 F 03/14/18 04:00 Pulse 58 03/14/18 07:00 Resp 23 03/14/18 07:00 BP 135/54 03/14/18 07:00 Pulse Ox 95 03/14/18 07:00 General appearance: lethargic (He is easily arousable intermittently can follow commands) Eyes: nonicteric ENT: other (Endotracheal tube noted in satisfactory position) Effort: mildly labored Auscultation: bilateral: diminished breath sounds, rales Cardiovascular: regular rate and rhythm Gastrointestinal: hypoactive bowel sounds, other (Distended but nontender) Integumentary: other (No evidence of new rash or areas of purpura/petechia) Musculoskeletal: no deformities other (Full neurological assessment of his motor strength is difficult because of underlying mental status he is able to move his feet and arms bilaterally without apparent evidence of weakness. His pupils are equal round reactive to light.) other (No evidence of agitation) Ventilator Settings Ventilator Settings: Ventilator Settings, Last 8 Hours Ventilator Tidal Volume 430 Setting Ventilator Tidal Volume 430 Setting Ventilator Tidal Volume 430 Setting Ventilator Tidal Volume 430 Setting Ventilator Tidal Volume 430 Setting Ventilator Tidal Volume 430 Setting Ventilator Tidal Volume 430 Setting Ventilator Tidal Volume 430 Setting Ventilator Tidal Volume 430 Setting Ventilator Tidal Volume 430 Setting Ventilator Tidal Volume 430 Setting Ventilator Tidal Volume 430 Setting Ventilator Respiratory Rate 22 Setting Ventilator Respiratory Rate 22 Setting Ventilator Respiratory Rate 22 Setting Ventilator Respiratory Rate 22 Setting Ventilator Respiratory Rate 22 Setting Ventilator Respiratory Rate 22 Setting Ventilator Respiratory Rate 22 Setting Ventilator Respiratory Rate 22 Setting Ventilator Respiratory Rate 22 Setting Ventilator Respiratory Rate 22 Setting Ventilator Respiratory Rate 22 Setting Ventilator Respiratory Rate 22 Setting Actual Respiratory Rate 23 Actual Respiratory Rate 22 Actual Respiratory Rate 22 Actual Respiratory Rate 24 Actual Respiratory Rate 22 Actual Respiratory Rate 22 Actual Respiratory Rate 22 Actual Respiratory Rate 22 Actual Respiratory Rate 22 Actual Respiratory Rate 22 Actual Respiratory Rate 23 Positive End Expiratory 5 Pressure Positive End Expiratory 5 Pressure Positive End Expiratory 5 Pressure Positive End Expiratory 5 Pressure Positive End Expiratory 5 Pressure Positive End Expiratory 5 Pressure Positive End Expiratory 5 Pressure Positive End Expiratory 5 Pressure Positive End Expiratory 5 Pressure Positive End Expiratory 5 Pressure Positive End Expiratory 5 Pressure Positive End Expiratory 5 Pressure Peak Inspiratory Airway 32 Pressure Peak Inspiratory Airway 31 Pressure Peak Inspiratory Airway 32 Pressure Peak Inspiratory Airway 29 Pressure Peak Inspiratory Airway 30 Pressure Peak Inspiratory Airway 30 Pressure Peak Inspiratory Airway 27 Pressure Peak Inspiratory Airway 27 Pressure Peak Inspiratory Airway 28 Pressure Peak Inspiratory Airway 29 Pressure Peak Inspiratory Airway 35 Pressure Results - Laboratory Findings CBC and BMP: 03/14/18 04:03 03/14/18 04:03 ABG ABG pH 7.29 pH Units (7.32-7.45) L 03/14/18 04:56 ABG pCO2 55 mmHg (35-45) H 03/14/18 04:56 ABG pO2 80 mmHg (85-104) L 03/14/18 04:56 ABG O2 Saturation 94 % (95-98) L 03/14/18 04:56 PT/INR, D-dimer PT 12.7 Seconds (9.4-12.1) H 03/11/18 03:57 Abnormal lab findings: Abnormal lab results WBC 3.3 K/mcL (4.3-11.1) L 03/14/18 04:03 RBC 3.00 M/mcL (4.19-5.50) L 03/14/18 04:03 Hgb 8.9 g/dL (12.9-16.9) L 03/14/18 04:03 Hct 28.7 % (37.5-50.1) L 03/14/18 04:03 MCHC 31.0 g/dL (31.6-35.5) L 03/14/18 04:03 RDW 16.3 % (11.5-14.5) H 03/14/18 04:03 Plt Count 52 K/mcL (140-400) L 03/14/18 04:03 Immature Gran % 5.2 % (0-4) H 03/14/18 04:03 Band Neutrophils % 16.0 % (0-4) H 03/09/18 10:38 Metamyelocytes % 10.0 % (0) H 03/09/18 10:38 Lymphocytes # 0.4 K/mcL (0.6-4.6) L 03/14/18 04:03 Nucleated RBCs/100 WBC 1.8 /100 WBC (0) H 03/14/18 04:03 Reactive Lymphocytes Present (Not Present) A 03/09/18 10:38 Platelet Estimate Decreased (Normal) L 03/10/18 00:57 PT 12.7 Seconds (9.4-12.1) H 03/11/18 03:57 ABG pH 7.29 pH Units (7.32-7.45) L 03/14/18 04:56 ABG pCO2 55 mmHg (35-45) H 03/14/18 04:56 ABG pO2 80 mmHg (85-104) L 03/14/18 04:56 ABG Total CO2 28 mEq/L (20-26) H 03/14/18 04:56 ABG O2 Saturation 94 % (95-98) L 03/14/18 04:56 BUN 36 mg/dL (6-20) H 03/14/18 04:03 Creatinine 2.32 mg/dL (0.70-1.30) H 03/14/18 04:03 Est GFR ( Amer) 36 (> 60) L 03/14/18 04:03 Est GFR (Non-Af Amer) 29 (> 60) L 03/14/18 04:03 Glucose 184 mg/dL (70-105) H 03/14/18 04:03 POC Glucose 161 mg/dL (70-99) H 03/14/18 01:05 Calculated Osmolality 301 (280-300) H 03/14/18 04:03 Calcium 7.9 mg/dL (8.6-10.3) L 03/14/18 04:03 Total Bilirubin 3.6 mg/dL (0.3-1.0) H 03/14/18 04:03 Direct Bilirubin 1.3 mg/dL (0.0-0.2) H 03/14/18 04:03 Indirect Bilirubin 2.3 mg/dL (0.0-1.2) H 03/14/18 04:03 Ammonia 64 mcmol/L (16-53) H 03/12/18 03:55 Troponin I 0.05 ng/mL (< 0.04) H* 03/11/18 12:08 B-Natriuretic Peptide 755 pg/mL (Less than 100) H 03/10/18 00:57 Globulin 1.8 g/dL (2.4-3.5) L 03/14/18 04:03 Albumin/Globulin Ratio 2.6 (1.1-2.2) H 03/14/18 04:03 Triglycerides 166 mg/dL (< 150) H 03/10/18 00:57 VLDL Cholesterol, Calc 33 mg/dL (< 31) H 03/10/18 00:57 HDL Cholesterol 33 mg/dL (40-59) L 03/10/18 00:57 Lipase 5 Units/L (11-82) L 03/09/18 10:38 Ur Specific Manning > 1.030 (1.010-1.025) H 03/09/18 10:58 Urine Protein 30 mg/dL (Neg-Trace) H 03/09/18 10:58 Urine Glucose (UA) >=1000 mg/dL (Normal) H 03/09/18 10:58 Urine Ketones Trace mg/dL (Negative) H 03/09/18 10:58 Urine Blood Trace (Negative) H 03/09/18 10:58 H. influenzae (PCR) DETECTED (Not Detect) A 03/09/18 11:58 - Clinical Findings Intake & Output: Intake & Output 03/13/18 03/13/18 03/14/18 15:59 23:59 07:59 Intake Total 371.1 / 371.1 406.9 / 406.9 408.1 / 408.1 Output Total 1556 / 1556 1312 / 1312 901 / 901 Balance -1184.9 / -1184.9 -905.1 / -905.1 -492.9 / -492.9 Weight 121.9 kg - VTE Documentation of Mechanical Device: Intermittent pneumatic compression device Consult Discharge Plan - Plan Referrals: Derick Ellis DO [Primary Care Provider] -
[2018-03-14] MEDS: Pantoprazole 40 MG VIAL IVP SCH (07:53)
[2018-03-14] MEDS: Chlorhexidine Rinse 15 ML MOUTHWASH MM SCH ×2 (07:54→20:20)
[2018-03-14] MEDS ORDERED: *HR* Heparin 5,000 UNIT/ML VIAL ONE (08:24)
[2018-03-14] MEDS: Insulin LISPRO 300 UNITS/3 ML VIAL SQ SCH ×3 (09:25→16:11)
[2018-03-14 09:57] LABS: INR 1.2; Prothrombin Time 13.2 Seconds (9.4-12.1)
--- NOTE | 2018-03-14 10:01 | Nephrology Progress Note ---
Date of Encounter: 03/14/18 Time of Encounter: 09:30 - Assessment and Plan (1) ELLIOT (acute kidney injury) Current Visit: Yes Status: Acute ELLIOT in setting of sepsis, pneumonia, H Flu, STEMI, contrast nephropathy. Oliguric. Creat 2.32. Hyperkalemia related to ELLIOT. K+ stable. Urine sodium 12, too high,not compatable with hepatorenal syndrome.. Continue CVVH, increase volume removal -125cc. Orders given. Avoid nephrotoxins, Accurate I&O's. Will continue to monitor. Subjective Principal diagnosis: Acute respiratory failure, PNA, STEMI, Cirrhosis Interval history: Remains intubated. Mild sedation. No pressors. CVVH. Objective - Vital Signs Vital signs: Vital Signs Temp Pulse Resp BP Pulse Ox 03/14/18 09:37 21 96 03/14/18 09:00 61 22 135/63 93 03/14/18 08:00 98.4 F 59 22 123/53 94 03/14/18 07:30 20 88 03/14/18 07:00 58 23 135/54 95 03/14/18 06:00 56 22 135/52 95 03/14/18 05:00 56 22 129/53 93 03/14/18 04:45 25 130/52 96 03/14/18 04:00 97.7 F 58 22 130/52 93 03/14/18 03:30 59 22 125/53 92 03/14/18 02:28 22 130/52 96 03/14/18 02:00 56 22 111/53 97 03/14/18 01:00 56 22 115/55 95 03/14/18 00:30 98.6 F 58 22 120/58 95 03/13/18 23:23 22 102/46 96 03/13/18 23:00 62 22 102/46 97 03/13/18 22:00 57 22 121/55 98 03/13/18 21:52 22 141/63 96 03/13/18 21:00 56 24 147/56 100 03/13/18 20:15 97.8 F 56 25 120/56 96 03/13/18 19:59 25 115/49 98 03/13/18 18:55 58 22 115/49 96 03/13/18 18:00 57 22 108/61 95 03/13/18 17:51 22 106/61 98 03/13/18 17:00 62 22 119/58 95 03/13/18 16:31 22 115/54 100 03/13/18 16:00 97.9 F 58 22 117/58 100 03/13/18 15:00 63 22 129/51 97 03/13/18 13:58 56 22 127/53 95 03/13/18 13:45 22 118/90 96 03/13/18 13:00 57 22 113/46 96 03/13/18 12:00 97.2 F L 58 22 113/51 94 03/13/18 11:26 22 111/51 93 03/13/18 11:00 60 22 111/51 94 03/13/18 10:00 56 22 108/53 97 Intake and Output 03/13/18 03/14/18 03/14/18 23:59 07:59 15:59 Intake Total 406.9 / 406.9 508.1 / 508.1 2.6 / 2.6 Output Total 1312 / 1312 901 / 901 220 / 220 Balance -905.1 / -905.1 -392.9 / -392.9 -217.4 / -217.4 Intake: IV Fluids 406.9 / 406.9 508.1 / 508.1 2.6 / 2.6 PrismaSATE BGK 4/2.5 5,000 ML @ 0 / 0 0 / 0 2000 mls/hr CRRT CONT SHALONDA Rx#: [id number] FentaNYL (PF) 1,000 MCG In 0.9 200.0 / 200.0 200 / 200 % Sodium Chloride 80 ML @ 50 MCG/HR 5 mls/hr IVC CONT SHALONDA Rx #:[id number] HumuLIN R 100 UNIT In 0.9 % 6.9 / 6.9 8.1 / 8.1 2.6 / 2.6 Sodium Chloride 100 ML @ 7.74 UNIT/HR 7.81 mls/hr IVC CONT SHALONDA Rx#:[id number] Flexbumin 25 gm In 100 ml @ 60 100.0 / 100.0 200 / 200 mls/hr IVPB Q6HR SHALONDA Rx#: [id number] Zosyn 3.375 GM In 0.9 % Sodium 100.0 / 100.0 100 / 100 Chloride (Mini-Bag +) 100 ML @ 25 mls/hr IVPB Q8HR SHALONDA Rx#: [id number] Output: Lynette 952 / 952 861 / 861 203 / 203 Rectal Tube 300 / 300 0 / 0 0 / 0 Catheter 60 / 60 40 / 40 Other: Stool Consistency liquid Stool Characteristics Mucoid Stool Color Brown Weight 121.9 kg Blood Glucose* 161 169 175 Patient Weight 03/14/18 23:59 Weight 121.9 kg - General Appearance General appearance: Present: well-developed, well-nourished, appears started age , obese EENT: Present: mucous membranes moist Neck: Present: no JVD Additional Comments: harsh Cardiology: Present: edema, irregular rhythm Additional Comments: mild-1+ LE Dialysis Vascular Access: Venous Catheter Gastrointestinal: Present: hypoactive bowel sounds Integumentary: Present: warm and dry - Lab 03/14/18 04:03 03/14/18 04:03 Most recent lab results ABG pH 7.29 pH Units (7.32-7.45) L 03/14/18 04:56 ABG pCO2 55 mmHg (35-45) H 03/14/18 04:56 ABG pO2 80 mmHg (85-104) L 03/14/18 04:56 ABG HCO3 26 mEq/L (21-27) 03/14/18 04:56 ABG O2 Saturation 94 % (95-98) L 03/14/18 04:56 Calcium 7.9 mg/dL (8.6-10.3) L 03/14/18 04:03 Phosphorus 3.7 mg/dL (2.7-4.5) 03/12/18 03:55 Magnesium 2.3 mg/dL (1.6-2.6) 03/11/18 16:22 Urine Sodium 12.0 mEq/L 03/11/18 09:19 - VTE Documentation of Mechanical Device: Intermittent pneumatic compression device Consult Discharge Plan - Plan Referrals: Derick Ellis DO [Primary Care Provider] -
[2018-03-14] MEDS: Lactulose 200 GM, Sodium Chloride IRRigation 700 ML RC SCH (11:02)
[2018-03-14] MEDS: Norepinephrine 4 MG in D5% in Water 250 ML IVC SCH (11:43)
[2018-03-14] MEDS: Insulin Human Regular 100 UNIT in 0.9 % Sodium Chloride 100 ML IVC SCH (11:43)
[2018-03-15] MEDS: Piperacillin/Tazobactam 3.375 GM in 0.9 % Sodium Chloride Mini Bag 100 ML IVPB SCH ×3 (00:05→16:44)
[2018-03-15] MEDS: 0.9 % Sodium Chloride 1,000 ML PRIME SCH ×3 (00:06→19:41)
[2018-03-15] MEDS: FentaNYL (PF) 1,000 MCG in 0.9 % Sodium Chloride 80 ML IVC SCH (03:18)
[2018-03-15] MEDS: Dexmedetomidine HCl 400 MCG/100 ML MLS IVC SCH ×2 (03:19→16:45)
[2018-03-15] MEDS: PrismaSATE BGK 4/2.5 5,000 ML CRRT SCH ×6 (04:45→15:35)
[2018-03-15 05:19] LABS: ABG Base Excess -1 mEq/L (-2 to 3); ABG HCO3 25 mEq/L (21-27); ABG Oxygen Saturation 97 % (95-98); ABG PCO2 51 mmHg (35-45); ABG PO2 97 mmHg (85-104); ABG TCO2 27 mEq/L (20-26); Blood Gas Modality PRVC; Blood Gas PEEP 5 cm H2O; Blood Gas Respiration Rate 20; Blood Gas VT 500 cc
[2018-03-15] MEDS: *HR* Heparin 5,000 UNIT/ML VIAL SQ SCH ×2 (06:31→18:01)
--- NOTE | 2018-03-15 06:33 | Electrocardiograph Report ---
[address] [place], [place] [address] Test Date: 2018-03-11 Pat Name: Jame Fang Department: 109 Room: [facility] Gender: [employer] Distributor: : [id number] Requested By: Emanuel Mueller Order Number: [id number] Reading MD: Naldo Zurita Measurements Intervals Magazine Rate: 56 P: IN: 0 QRS: 57 QRSD: 107 T: 0 QT: 444 QTc: 435 Interpretive Statements JUNCTIONAL RHYTHM ST ELEVATION, CONSIDER LATERAL INJURY ACUTE LA Electronically Signed On 03-15-2018 6:32:29 EDT by Naldo Zurita
[2018-03-15 08:08] LABS: Hemoglobin 9.7 g/dL (12.9-16.9); Mean Corpuscular Hemoglobin 29.8 pg (28.0-33.3); Red Blood Count 3.26 M/mcL (4.19-5.50); Red Cell Distribution Width 16.1 % (11.5-14.5)
[2018-03-15 08:10] LABS: Hematocrit 30.9 % (37.5-50.1); Immature Platelets 5.4 % (1.1-6.1); Mean Corpuscular HGB Conc 31.4 g/dL (31.6-35.5); Mean Corpuscular Volume 94.8 fL (83.0-100.0); Mean Platelet Volume 10.2 fL (9.4-12.4)
[2018-03-15 08:11] LABS: Monocytes # 0.3 K/mcL (0.0-1.3); Nucleated Red Blood Cells 0.6 /100 WBC (0)
[2018-03-15 08:18] LABS: Calcium 8.7 mg/dL (8.6-10.3); Potassium 4.1 mEq/L (3.5-5.1)
[2018-03-15 08:22] LABS: Platelet Count 51 K/mcL (140-400)
[2018-03-15] MEDS: Pantoprazole 40 MG VIAL IVP SCH (08:36)
--- NOTE | 2018-03-15 08:40 | Nephrology Progress Note ---
Date of Encounter: 03/15/18 Time of Encounter: 08:25 - Assessment and Plan (1) ELLIOT (acute kidney injury) Current Visit: Yes Status: Acute ELLIOT in setting of sepsis, pneumonia, H Flu, STEMI, contrast nephropathy. Remains oliguric. Today labs pending. Hyperkalemia related to ELLIOT. K+ stable. Urine sodium 12, too high,not compatable with hepatorenal syndrome. Will stop CVVH, Orders given. Will need chronic HD, most likely starting tomorrow.Avoid nephrotoxins, Accurate I&O's. Will continue to monitor. Subjective Principal diagnosis: Acute respiratory failure, PNA, STEMI, Cirrhosis Interval history: Extubated. O2 2L/nc. No pressors. CVVH. at bedside. Update/review of renal events discussed. Objective - Vital Signs Vital signs: Vital Signs Temp Pulse Resp BP Pulse Ox 03/15/18 08:00 88 20 172/70 97 03/15/18 07:24 98.0 F 03/15/18 07:00 71 14 154/61 100 03/15/18 06:25 21 96 03/15/18 06:00 83 23 128/64 94 03/15/18 05:02 20 139/59 96 03/15/18 05:00 63 20 139/59 95 03/15/18 04:00 98.6 F 57 20 147/70 96 03/15/18 03:16 22 131/67 99 03/15/18 03:00 64 24 131/67 100 03/15/18 02:00 58 20 143/68 98 03/15/18 01:17 20 149/68 97 03/15/18 01:00 58 20 149/68 99 03/15/18 00:00 99.2 F 70 20 141/63 95 03/14/18 23:50 20 126/59 94 03/14/18 23:00 58 22 146/62 99 03/14/18 22:00 59 20 125/54 96 03/14/18 21:45 20 127/53 99 03/14/18 21:00 56 20 136/52 97 03/14/18 20:00 98.8 F 57 20 123/54 96 03/14/18 19:45 20 126/54 96 03/14/18 19:00 54 20 115/56 95 03/14/18 18:00 55 20 120/52 96 03/14/18 17:00 58 20 130/52 98 03/14/18 16:57 20 97 03/14/18 16:00 98.2 F 59 20 105/55 99 03/14/18 15:58 20 98 03/14/18 15:00 56 20 108/50 100 03/14/18 14:00 59 20 144/67 98 03/14/18 13:47 20 98 03/14/18 13:00 56 20 110/47 98 03/14/18 12:00 98.4 F 59 20 126/48 97 03/14/18 11:45 20 97 03/14/18 11:00 57 20 106/56 98 03/14/18 10:00 57 20 114/52 97 03/14/18 09:37 21 96 03/14/18 09:00 61 22 135/63 93 Intake and Output 03/14/18 03/15/18 03/15/18 23:59 07:59 15:59 Intake Total 305.8 / 305.8 288.2 / 288.2 2.40 / 2.40 Output Total 1303 / 1303 1076 / 1076 144 / 144 Balance -997.2 / -997.2 -787.8 / -787.8 -141.60 / -141.60 Intake: IV Fluids 305.8 / 305.8 288.2 / 288.2 2.40 / 2.40 PrismaSATE BGK 4/2.5 5,000 ML @ 0 / 0 2000 mls/hr CRRT CONT SHALONDA Rx#: [id number] FentaNYL (PF) 1,000 MCG In 0.9 200.0 / 200.0 180 / 180 % Sodium Chloride 80 ML @ 50 MCG/HR 5 mls/hr IVC CONT SHALONDA Rx #:[id number] HumuLIN R 100 UNIT In 0.9 % 5.8 / 5.8 8.2 / 8.2 2.40 / 2.40 Sodium Chloride 100 ML @ 7.74 UNIT/HR 7.81 mls/hr IVC CONT SHALONDA Rx#:[id number] Zosyn 3.375 GM In 0.9 % Sodium 100.0 / 100.0 100 / 100 Chloride (Mini-Bag +) 100 ML @ 25 mls/hr IVPB Q8HR SHALONDA Rx#: [id number] Output: Lynette 1080 / 1080 1027 / 1027 129 / 129 Rectal Tube 150 / 150 0 / 0 Catheter 73 / 73 49 / 49 15 / 15 Other: Stool Consistency liquid Stool Color Brown Weight 116.3 kg Blood Glucose* 152 176 161 Patient Weight 03/15/18 23:59 Weight 116.3 kg - General Appearance General appearance: Present: well-developed, well-nourished, appears started age , obese EENT: Present: mucous membranes moist Neck: Present: no JVD Respiratory: Present: clear Additional Comments: diminished Cardiology: Present: no edema, regular rate, regular rhythm Dialysis Vascular Access: Venous Catheter Gastrointestinal: Present: normoactive bowel sounds, no tenderness Integumentary: Present: warm and dry Psychiatric: Present: mood/affect appropriate, cooperative - Lab 03/15/18 07:01 03/15/18 07:50 Most recent lab results ABG pH 7.30 pH Units (7.32-7.45) L 03/15/18 05:15 ABG pCO2 51 mmHg (35-45) H 03/15/18 05:15 ABG pO2 97 mmHg (85-104) 03/15/18 05:15 ABG HCO3 25 mEq/L (21-27) 03/15/18 05:15 ABG O2 Saturation 97 % (95-98) 03/15/18 05:15 Calcium 8.7 mg/dL (8.6-10.3) 03/15/18 07:50 Phosphorus 3.7 mg/dL (2.7-4.5) 03/12/18 03:55 Magnesium 2.3 mg/dL (1.6-2.6) 03/11/18 16:22 Urine Sodium 12.0 mEq/L 03/11/18 09:19 - VTE Documentation of Mechanical Device: Intermittent pneumatic compression device Consult Discharge Plan - Plan Referrals: Derick Ellis DO [Primary Care Provider] -
[2018-03-15 08:56] LABS: Anisocytosis 1+ (Not Present); Eosinophils # 0.2 K/mcL (0.0-0.6); Lymphocytes # 0.9 K/mcL (0.6-4.6); Neutrophils # 3.2 K/mcL (1.6-8.9); Platelet Estimate Decreased (Normal); Polychromasia 1+ (Not Present)
--- NOTE | 2018-03-15 09:03 | Pulmonology Progress Note ---
<RajiBernicemansi M - Last Filed: 03/15/18 09:44> Date of Encounter: 03/15/18 Objective PUL Vital signs: Last Vital Signs Temp 98.0 F 03/15/18 07:24 Pulse 66 03/15/18 09:00 Resp 19 03/15/18 09:00 BP 170/61 03/15/18 09:00 Pulse Ox 95 03/15/18 09:00 Ventilator Settings Ventilator Settings: Ventilator Settings, Last 8 Hours Ventilator Tidal Volume 500 Setting Ventilator Tidal Volume 500 Setting Ventilator Tidal Volume 500 Setting Ventilator Tidal Volume 500 Setting Ventilator Tidal Volume 500 Setting Ventilator Tidal Volume 500 Setting Ventilator Tidal Volume 500 Setting Ventilator Tidal Volume 500 Setting Ventilator Respiratory Rate 20 Setting Ventilator Respiratory Rate 20 Setting Ventilator Respiratory Rate 20 Setting Ventilator Respiratory Rate 20 Setting Ventilator Respiratory Rate 20 Setting Ventilator Respiratory Rate 20 Setting Ventilator Respiratory Rate 20 Setting Ventilator Respiratory Rate 20 Setting Actual Respiratory Rate 17 Actual Respiratory Rate 23 Actual Respiratory Rate 20 Actual Respiratory Rate 20 Actual Respiratory Rate 20 Actual Respiratory Rate 24 Actual Respiratory Rate 24 Actual Respiratory Rate 20 Positive End Expiratory 8 Pressure Positive End Expiratory 8 Pressure Positive End Expiratory 8 Pressure Positive End Expiratory 8 Pressure Positive End Expiratory 8 Pressure Positive End Expiratory 8 Pressure Positive End Expiratory 8 Pressure Positive End Expiratory 8 Pressure Positive End Expiratory 8 Pressure Peak Inspiratory Airway 14 Pressure Peak Inspiratory Airway 27 Pressure Peak Inspiratory Airway 29 Pressure Peak Inspiratory Airway 28 Pressure Peak Inspiratory Airway 27 Pressure Peak Inspiratory Airway 35 Pressure Peak Inspiratory Airway 30 Pressure Peak Inspiratory Airway 35 Pressure Results - Laboratory Findings CBC and BMP: 03/15/18 07:01 03/15/18 07:50 ABG ABG pH 7.30 pH Units (7.32-7.45) L 03/15/18 05:15 ABG pCO2 51 mmHg (35-45) H 03/15/18 05:15 ABG pO2 97 mmHg (85-104) 03/15/18 05:15 ABG O2 Saturation 97 % (95-98) 03/15/18 05:15 PT/INR, D-dimer PT 13.2 Seconds (9.4-12.1) H 03/14/18 09:35 Abnormal lab findings: Abnormal lab results RBC 3.26 M/mcL (4.19-5.50) L 03/15/18 07:01 Hgb 9.7 g/dL (12.9-16.9) L 03/15/18 07:01 Hct 30.9 % (37.5-50.1) L 03/15/18 07:01 MCHC 31.4 g/dL (31.6-35.5) L 03/15/18 07:01 RDW 16.1 % (11.5-14.5) H 03/15/18 07:01 Plt Count 51 K/mcL (140-400) L 03/15/18 07:01 Immature Gran % 5.2 % (0-4) H 03/14/18 04:03 Metamyelocytes % 10.0 % (0) H 03/09/18 10:38 Nucleated RBCs/100 WBC 0.6 /100 WBC (0) H 03/15/18 07:01 Reactive Lymphocytes Present (Not Present) A 03/09/18 10:38 Platelet Estimate Decreased (Normal) L 03/15/18 07:01 Polychromasia 1+ (Not Present) A 03/15/18 07:01 Anisocytosis 1+ (Not Present) A 03/15/18 07:01 PT 13.2 Seconds (9.4-12.1) H 03/14/18 09:35 ABG pH 7.30 pH Units (7.32-7.45) L 03/15/18 05:15 ABG pCO2 51 mmHg (35-45) H 03/15/18 05:15 ABG Total CO2 27 mEq/L (20-26) H 03/15/18 05:15 BUN 33 mg/dL (6-20) H 03/15/18 07:50 Creatinine 1.95 mg/dL (0.70-1.30) H 03/15/18 07:50 Est GFR ( Amer) 44 (> 60) L 03/15/18 07:50 Est GFR (Non-Af Amer) 36 (> 60) L 03/15/18 07:50 Glucose 181 mg/dL (70-105) H 03/15/18 07:50 POC Glucose 153 mg/dL (70-99) H 03/14/18 23:58 Calculated Osmolality 302 (280-300) H 03/15/18 07:50 Total Bilirubin 3.6 mg/dL (0.3-1.0) H 03/14/18 04:03 Direct Bilirubin 1.3 mg/dL (0.0-0.2) H 03/14/18 04:03 Indirect Bilirubin 2.3 mg/dL (0.0-1.2) H 03/14/18 04:03 Ammonia 64 mcmol/L (16-53) H 03/12/18 03:55 Troponin I 0.05 ng/mL (< 0.04) H* 03/11/18 12:08 B-Natriuretic Peptide 755 pg/mL (Less than 100) H 03/10/18 00:57 Globulin 1.8 g/dL (2.4-3.5) L 03/14/18 04:03 Albumin/Globulin Ratio 2.6 (1.1-2.2) H 03/14/18 04:03 Triglycerides 166 mg/dL (< 150) H 03/10/18 00:57 VLDL Cholesterol, Calc 33 mg/dL (< 31) H 03/10/18 00:57 HDL Cholesterol 33 mg/dL (40-59) L 03/10/18 00:57 Lipase 5 Units/L (11-82) L 03/09/18 10:38 Ur Specific Corona > 1.030 (1.010-1.025) H 03/09/18 10:58 Urine Protein 30 mg/dL (Neg-Trace) H 03/09/18 10:58 Urine Glucose (UA) >=1000 mg/dL (Normal) H 03/09/18 10:58 Urine Ketones Trace mg/dL (Negative) H 03/09/18 10:58 Urine Blood Trace (Negative) H 03/09/18 10:58 H. influenzae (PCR) DETECTED (Not Detect) A 03/09/18 11:58 - Clinical Findings Intake & Output: Intake & Output 03/14/18 03/15/18 03/15/18 23:59 07:59 15:59 Intake Total 305.8 / 305.8 288.2 / 288.2 4.80 / 4.80 Output Total 1303 / 1303 1076 / 1076 321 / 321 Balance -997.2 / -997.2 -787.8 / -787.8 -316.20 / -316.20 Weight 116.3 kg Consult Discharge Plan - Plan Referrals: Derick Ellis DO [Primary Care Provider] - - Attending Attestation I examined this patient and my medical decision-making was reviewed with the Resident Physician. I agree with the documented findings, disposition and treatment plan as described except to the extent set forth below. Patient seen and examined. Labs, radiology, chart personally reviewed. Agree with resident's history and physical, assessment, plan with following comments: [employer]: Patient follows commands, Pulmonary: Acceptable oxygenation and ventilation and patient was successfully extubated Cardiovascular: stable GI: Nutrition per dietary and GI prophylaxis per routine Heme: DVT prophylaxis per routine ID: Continue antibiotics and plan to de-escalation Renal; urine out put and renal funtion reviewed. Patient still on Balbina and when that is discontinued then we will plan transfer patient about of ICU Endorcine: blood glucose is monitored Lines: all lines checked and no evidence of infections Skin: skin care to prevent pressure ulcers per nursing routine care <Miguel Molina - Last Filed: 03/15/18 11:20> Date of Encounter: 03/15/18 Time of Encounter: 09:00 Assessment and Plan (1) Acute respiratory failure with hypercapnia Current Visit: Yes Status: Acute ABG values showed improving P CO2 an O2 sat. Patient was extubated. Currently doing well on nasal cannula 3 L at 97% oxygen saturation. (2) Pneumonia Current Visit: Yes Status: Acute White blood cell count within normal limits. Blood culture positive for Haemophilus on 12. On day #5 of Zosyn. Vitals stable. - Continue antibiotics. Qualifiers: Pneumonia type: due to unspecified organism Laterality: bilateral Lung location: unspecified part of lung Qualified Code(s): J18.9 - Pneumonia, unspecified organism (3) STEMI (ST elevation myocardial infarction) Current Visit: Yes Status: Acute Continues to have STEMI on telemetry. On rectal ASA. Cardiology consulted and current recommendation is to hold off on acute intervention and holding off on the heparin drip given patient's sepsis, PNA, and history of esophageal varicies. - Discontinue rectal ASA. Start ASA PO. - Continue to hold heparin drip. Qualifiers: Qualified Code(s): I21.3 - ST elevation (STEMI) myocardial infarction of unspecified site (4) Decompensation of cirrhosis of liver Current Visit: Yes Status: Acute Patient is alert and oriented and following commands. INR yesterday was 1.2. Patient has good fluid balance at - 2260. Does not appear to be fluid overloaded. GI does not recommend patient to start diuretics at this point. - Changed lactulose to 20 g PO PRN. Patient must have at least 2-4 BM per day. - Continue to monitor I/O's. - Continue to monitor mental status. (5) Hepatic encephalopathy Current Visit: Yes Status: Acute Patient is alert and oriented today and able to follow commands. - Started on lactulose 20 g twice a day by mouth when necessary. Patient to have at least 2-4 bowel movements per day. (6) Esophageal varices without bleeding Current Visit: Yes Status: Acute History of esophageal varices per recent egd. endoscopy 03/02/18 Single 35mm sessile polyp removed and sent for biopsy. Gastric polyp removed and sent for biopsy. grade I esophageal varicies. Gastroenterology seeing in consultation. Hemoglobin stable at 9.7. No signs of hemoptysis or hematemesis. GI has no plans for EGD at this point due to risk of perforation. We will consider EGD if patient presents with signs of esophageal bleeding. Qualifiers: Esophageal varices type: secondary Qualified Code(s): I85.10 - Secondary esophageal varices without bleeding (7) Thrombocytopenia Current Visit: Yes Status: Acute Secondary to decompensated cirrhosis. Platelet level stable at 51. (8) ELLIOT (acute kidney injury) Current Visit: Yes Status: Acute Baseline creatinine from 0.9-1.0. Creatinine continues to improve from yesterday from 2.3 to 1.95. ELLIOT in setting of sepsis, PNA, STEMI, and contrast nephropathy. Patient on BALBINA dialysis. - Switch Balbina to HD. - avoid nephrotoxins. - Accurate I/O's. - Continue dialysis. (9) DVT prophylaxis Current Visit: Yes Status: Acute On heparin 5000 U SQ BID. Subjective Principal diagnosis: Acute respiratory failure, PNA, STEMI, Cirrhosis Interval history: Patient was extubated earlier today. He denies any chest pain. Denies any shortness of breath. Denies any abdominal pain, nausea, or vomiting. Denies any headaches or dizziness. Denies any coughing. Denies any fever or chills. Objective PUL Vital signs: Last Vital Signs Temp 98.0 F 03/15/18 07:24 Pulse 88 03/15/18 08:00 Resp 20 03/15/18 08:00 BP 172/70 03/15/18 08:00 Pulse Ox 97 03/15/18 08:00 General appearance: no acute distress Eyes: icteric (Minor bilateral scleral icterus) ENT: oropharynx moist Effort: normal Auscultation: bilateral: clear Percussion: bilateral: not dull Tactile fremitus: bilateral: normal Cardiovascular: murmur noted (Regurgitative murmur on aortic post) Integumentary: normal Extremities: no cyanosis, no edema, no clubbing, pink and warm, pulses normal, no ischemia or petechiae Musculoskeletal: no deformities normal mental status mood appropriate, affect normal Ventilator Settings Ventilator Settings: Ventilator Settings, Last 8 Hours Ventilator Tidal Volume 500 Setting Ventilator Tidal Volume 500 Setting Ventilator Tidal Volume 500 Setting Ventilator Tidal Volume 500 Setting Ventilator Tidal Volume 500 Setting Ventilator Tidal Volume 500 Setting Ventilator Tidal Volume 500 Setting Ventilator Tidal Volume 500 Setting Ventilator Tidal Volume 500 Setting Ventilator Respiratory Rate 20 Setting Ventilator Respiratory Rate 20 Setting Ventilator Respiratory Rate 20 Setting Ventilator Respiratory Rate 20 Setting Ventilator Respiratory Rate 20 Setting Ventilator Respiratory Rate 20 Setting Ventilator Respiratory Rate 20 Setting Ventilator Respiratory Rate 20 Setting Ventilator Respiratory Rate 20 Setting Actual Respiratory Rate 17 Actual Respiratory Rate 23 Actual Respiratory Rate 20 Actual Respiratory Rate 20 Actual Respiratory Rate 20 Actual Respiratory Rate 24 Actual Respiratory Rate 24 Actual Respiratory Rate 20 Actual Respiratory Rate 20 Positive End Expiratory 8 Pressure Positive End Expiratory 8 Pressure Positive End Expiratory 8 Pressure Positive End Expiratory 8 Pressure Positive End Expiratory 8 Pressure Positive End Expiratory 8 Pressure Positive End Expiratory 8 Pressure Positive End Expiratory 8 Pressure Positive End Expiratory 8 Pressure Positive End Expiratory 8 Pressure Peak Inspiratory Airway 14 Pressure Peak Inspiratory Airway 27 Pressure Peak Inspiratory Airway 29 Pressure Peak Inspiratory Airway 28 Pressure Peak Inspiratory Airway 27 Pressure Peak Inspiratory Airway 35 Pressure Peak Inspiratory Airway 30 Pressure Peak Inspiratory Airway 35 Pressure Peak Inspiratory Airway 38 Pressure Results - Laboratory Findings CBC and BMP: 03/15/18 07:01 03/15/18 07:50 ABG ABG pH 7.30 pH Units (7.32-7.45) L 03/15/18 05:15 ABG pCO2 51 mmHg (35-45) H 03/15/18 05:15 ABG pO2 97 mmHg (85-104) 03/15/18 05:15 ABG O2 Saturation 97 % (95-98) 03/15/18 05:15 PT/INR, D-dimer PT 13.2 Seconds (9.4-12.1) H 03/14/18 09:35 Abnormal lab findings: Abnormal lab results RBC 3.26 M/mcL (4.19-5.50) L 03/15/18 07:01 Hgb 9.7 g/dL (12.9-16.9) L 03/15/18 07:01 Hct 30.9 % (37.5-50.1) L 03/15/18 07:01 MCHC 31.4 g/dL (31.6-35.5) L 03/15/18 07:01 RDW 16.1 % (11.5-14.5) H 03/15/18 07:01 Plt Count 51 K/mcL (140-400) L 03/15/18 07:01 Immature Gran % 5.2 % (0-4) H 03/14/18 04:03 Metamyelocytes % 10.0 % (0) H 03/09/18 10:38 Nucleated RBCs/100 WBC 0.6 /100 WBC (0) H 03/15/18 07:01 Reactive Lymphocytes Present (Not Present) A 03/09/18 10:38 Platelet Estimate Decreased (Normal) L 03/15/18 07:01 Polychromasia 1+ (Not Present) A 03/15/18 07:01 Anisocytosis 1+ (Not Present) A 03/15/18 07:01 PT 13.2 Seconds (9.4-12.1) H 03/14/18 09:35 ABG pH 7.30 pH Units (7.32-7.45) L 03/15/18 05:15 ABG pCO2 51 mmHg (35-45) H 03/15/18 05:15 ABG Total CO2 27 mEq/L (20-26) H 03/15/18 05:15 BUN 33 mg/dL (6-20) H 03/15/18 07:50 Creatinine 1.95 mg/dL (0.70-1.30) H 03/15/18 07:50 Est GFR ( Amer) 44 (> 60) L 03/15/18 07:50 Est GFR (Non-Af Amer) 36 (> 60) L 03/15/18 07:50 Glucose 181 mg/dL (70-105) H 03/15/18 07:50 POC Glucose 153 mg/dL (70-99) H 03/14/18 23:58 Calculated Osmolality 302 (280-300) H 03/15/18 07:50 Total Bilirubin 3.6 mg/dL (0.3-1.0) H 03/14/18 04:03 Direct Bilirubin 1.3 mg/dL (0.0-0.2) H 03/14/18 04:03 Indirect Bilirubin 2.3 mg/dL (0.0-1.2) H 03/14/18 04:03 Ammonia 64 mcmol/L (16-53) H 03/12/18 03:55 Troponin I 0.05 ng/mL (< 0.04) H* 03/11/18 12:08 B-Natriuretic Peptide 755 pg/mL (Less than 100) H 03/10/18 00:57 Globulin 1.8 g/dL (2.4-3.5) L 03/14/18 04:03 Albumin/Globulin Ratio 2.6 (1.1-2.2) H 03/14/18 04:03 Triglycerides 166 mg/dL (< 150) H 03/10/18 00:57 VLDL Cholesterol, Calc 33 mg/dL (< 31) H 03/10/18 00:57 HDL Cholesterol 33 mg/dL (40-59) L 03/10/18 00:57 Lipase 5 Units/L (11-82) L 03/09/18 10:38 Ur Specific [place]ona > 1.030 (1.010-1.025) H 03/09/18 10:58 Urine Protein 30 mg/dL (Neg-Trace) H 03/09/18 10:58 Urine Glucose (UA) >=1000 mg/dL (Normal) H 03/09/18 10:58 Urine Ketones Trace mg/dL (Negative) H 03/09/18 10:58 Urine Blood Trace (Negative) H 03/09/18 10:58 H. influenzae (PCR) DETECTED (Not Detect) A 03/09/18 11:58 - Clinical Findings Intake & Output: Intake & Output 03/14/18 03/15/18 03/15/18 23:59 07:59 15:59 Intake Total 305.8 / 305.8 288.2 / 288.2 2.40 / 2.40 Output Total 1303 / 1303 1076 / 1076 144 / 144 Balance -997.2 / -997.2 -787.8 / -787.8 -141.60 / -141.60 Weight 116.3 kg - VTE Documentation of Mechanical Device: Intermittent pneumatic compression device
[2018-03-15] MEDS: Chlorhexidine Rinse 15 ML MOUTHWASH MM SCH ×2 (09:37→20:37)
[2018-03-15] MEDS: Insulin LISPRO 300 UNITS/3 ML VIAL SQ SCH ×3 (09:38→18:00)
[2018-03-15] MEDS ORDERED: *HR* Dextrose 50 % in Water (Syg) 50 ML SYRINGE IVP PRN (10:24)
[2018-03-15] MEDS ORDERED: Dextrose Gel 15 GM/37.5 ML TUBE PO PRN ×2 (10:24)
[2018-03-15] MEDS ORDERED: D5% in Water 1,000 ML IVC PRN (10:24)
[2018-03-15] MEDS: Aspirin 81 MG TAB.CHEW PO SCH (10:58)
[2018-03-15] MEDS ORDERED: Lactulose Oral Soln 20 GM/30 ML UDC PO PRN (10:58)
[2018-03-15 12:00] LABS: Hepatitis B Surface Antibody 0.37 mIU/mL; Hepatitis B Surface Antigen Nonreactive (Nonreactive)
[2018-03-15] MEDS ORDERED: Insulin LISPRO 300 UNITS/3 ML VIAL SQ SCH (12:00)
[2018-03-15] MEDS: Norepinephrine 4 MG in D5% in Water 250 ML IVC SCH (16:46)
[2018-03-16] MEDS: Piperacillin/Tazobactam 3.375 GM in 0.9 % Sodium Chloride Mini Bag 100 ML IVPB SCH ×3 (00:29→16:09)
[2018-03-16] MEDS: Insulin LISPRO 300 UNITS/3 ML VIAL SQ SCH ×4 (00:30→18:22)
[2018-03-16] MEDS: Dexmedetomidine HCl 400 MCG/100 ML MLS IVC SCH (03:27)
[2018-03-16 04:10] LABS: Hemoglobin 9.8 g/dL (12.9-16.9); Immature Platelets 5.6 % (1.1-6.1); Mean Corpuscular HGB Conc 31.6 g/dL (31.6-35.5); Mean Corpuscular Hemoglobin 29.2 pg (28.0-33.3); Mean Corpuscular Volume 92.3 fL (83.0-100.0); Mean Platelet Volume 10.6 fL (9.4-12.4); Nucleated Red Blood Cells 0.7 /100 WBC (0); Platelet Count 54 K/mcL (140-400); Red Blood Count 3.36 M/mcL (4.19-5.50); Red Cell Distribution Width 15.8 % (11.5-14.5)
[2018-03-16 04:30] LABS: Lymphocytes # 0.7 K/mcL (0.6-4.6); Monocytes # 0.2 K/mcL (0.0-1.3); Neutrophils # 3.4 K/mcL (1.6-8.9); Platelet Estimate Decreased (Normal)
[2018-03-16 04:36] LABS: Albumin 4.5 g/dL (3.5-5.7); Albumin/Globulin Ratio 2.4 (1.1-2.2); Bilirubin,Total 4.2 mg/dL (0.3-1.0); Globulin 1.9 g/dL (2.4-3.5); Potassium 4.1 mEq/L (3.5-5.1); Total Protein 6.4 g/dL (6.4-8.9)
[2018-03-16] MEDS: *HR* Heparin 5,000 UNIT/ML VIAL SQ SCH ×2 (05:46→16:09)
[2018-03-16] MEDS: Aspirin 81 MG TAB.CHEW PO SCH (07:44)
[2018-03-16] MEDS: Chlorhexidine Rinse 15 ML MOUTHWASH MM SCH (07:44)
[2018-03-16] MEDS: Pantoprazole 40 MG VIAL IVP SCH (07:44)
--- NOTE | 2018-03-16 08:19 | Nephrology Progress Note ---
Date of Encounter: 03/16/18 Time of Encounter: 08:18 Subjective Principal diagnosis: Acute respiratory failure, PNA, STEMI, Cirrhosis Interval history: Patient reports she is feeling better. He offers no new complaints. He is expressing a slight cough and does have some underlying shortness of breath. CVVH was discontinued yesterday. He remains oliguric. Patient has acute kidney injury. He remains oliguric. The clinical Speck perspective he is otherwise improving. Currently he will be dependent on intermittent hemodialysis. Since he was on CVVH yesterday we will initiate intermittent hemodialysis tomorrow. I am hopeful that eventually he will recover enough renal function to discontinue dialysis. I did discuss this with the patient. Objective - Vital Signs Vital signs: Vital Signs Temp Pulse Resp BP Pulse Ox 03/16/18 07:39 62 03/16/18 07:00 62 16 145/63 95 03/16/18 06:00 55 16 134/55 95 03/16/18 05:30 59 20 138/58 95 03/16/18 05:26 97.7 F 03/16/18 04:00 59 18 142/58 96 03/16/18 03:00 62 12 154/57 94 03/16/18 02:00 68 17 150/57 95 03/16/18 01:00 63 18 159/58 95 03/16/18 00:00 98.1 F 58 19 142/56 95 03/15/18 23:29 58 03/15/18 23:00 59 17 140/53 95 03/15/18 22:00 61 20 146/55 95 03/15/18 21:00 60 18 140/45 96 03/15/18 20:00 97.8 F 64 20 167/59 95 03/15/18 19:30 56 03/15/18 19:00 57 19 157/60 97 03/15/18 18:00 55 20 147/67 99 03/15/18 17:00 57 19 152/65 99 03/15/18 16:00 97.8 F 63 22 145/72 98 03/15/18 15:00 53 19 154/58 98 03/15/18 14:00 51 20 160/69 98 03/15/18 13:00 64 20 160/66 96 03/15/18 12:00 97.7 F 56 21 161/59 97 03/15/18 11:00 59 20 175/64 97 03/15/18 10:00 58 19 168/72 97 03/15/18 09:00 66 19 170/61 95 Intake and Output 03/15/18 03/16/18 03/16/18 23:59 07:59 15:59 Intake Total 560 / 560 340 / 340 Output Total 1256 / 1256 200 / 200 Balance -696 / -696 140 / 140 Intake: IV Fluids 100 / 100 100 / 100 Zosyn 3.375 GM In 0.9 % Sodium 100 / 100 100 / 100 Chloride (Mini-Bag +) 100 ML @ 25 mls/hr IVPB Q8HR [facility] Rx#: [id number] Oral 460 / 460 240 / 240 Output: Lynette 1118 / 1118 Rectal Tube 0 / 0 0 / 0 Catheter 138 / 138 200 / 200 Other: Stool Color Green Weight 116.4 kg Blood Glucose* 154 167 Patient Weight 03/16/18 23:59 Weight 116.4 kg - General Appearance Exam: Patient is alert and oriented. He is in no acute distress. Lung sounds otherwise clear. Heart regular rate and rhythm. Abdomen is benign. There is no peripheral edema. - Lab 03/16/18 03:33 03/16/18 04:00 Most recent lab results ABG pH 7.30 pH Units (7.32-7.45) L 03/15/18 05:15 ABG pCO2 51 mmHg (35-45) H 03/15/18 05:15 ABG pO2 97 mmHg (85-104) 03/15/18 05:15 ABG HCO3 25 mEq/L (21-27) 03/15/18 05:15 ABG O2 Saturation 97 % (95-98) 03/15/18 05:15 Calcium 9.0 mg/dL (8.6-10.3) 03/16/18 04:00 Phosphorus 3.7 mg/dL (2.7-4.5) 03/12/18 03:55 Magnesium 2.3 mg/dL (1.6-2.6) 03/11/18 16:22 Urine Sodium 12.0 mEq/L 03/11/18 09:19 - VTE Documentation of Mechanical Device: Intermittent pneumatic compression device Consult Discharge Plan - Plan Referrals: Derick Ellis DO [Primary Care Provider] -
--- NOTE | 2018-03-16 08:19 | Pulmonology Progress Note ---
<Miguel Molina - Last Filed: 03/16/18 10:02> Date of Encounter: 03/16/18 Time of Encounter: 08:45 Assessment and Plan (1) Acute respiratory failure with hypoxia and hypercapnia Current Visit: Yes Status: Acute Patient extubated yesterday. Currently doing well at 95% oxygen saturation on 3 L nasal cannula. Patient is to be transferred out of the ICU and to telemetry unit. Spoke to hospitalist Dr. Harmon who agreed to accept the patient. (2) STEMI (ST elevation myocardial infarction) Current Visit: Yes Status: Acute Continues to have STEMI on telemetry. On rectal ASA. Cardiology consulted and current recommendation is to hold off on acute intervention and holding off on the heparin drip given patient's sepsis, PNA, and history of esophageal varicies. - Discontinue rectal ASA. Start ASA PO. - Continue to hold heparin drip. (3) Pneumonia Current Visit: Yes Status: Acute White blood cell count within normal limits. Blood culture positive for Haemophilus on 03/09. On day #6 of Zosyn. Vitals stable. - Continue antibiotics. Qualifiers: Pneumonia type: due to unspecified organism Laterality: bilateral Lung location: unspecified part of lung Qualified Code(s): J18.9 - Pneumonia, unspecified organism (4) Decompensation of cirrhosis of liver Current Visit: Yes Status: Acute Patient is alert and oriented and following commands. Patient has good fluid balance at - 2578. Does not appear to be fluid overloaded. Total bilirubin has increased from 3.6-4.2 since 03/14/18. Continues to have scleral icterus on exam. Liver enzymes within normal limits. - Continue 20 g PO PRN. Patient must have at least 2-4 BM per day. - Continue to monitor I/O's. - Continue to monitor mental status. (5) Hepatic encephalopathy Current Visit: Yes Status: Acute Patient is alert and oriented today and able to follow commands. - Continue lactulose 20 g twice a day by mouth when necessary. Patient to have at least 2-4 bowel movements per day. (6) Esophageal varices without bleeding Current Visit: Yes Status: Acute History of esophageal varices per recent egd. endoscopy 03/02/18 Single 35mm sessile polyp removed and sent for biopsy. Gastric polyp removed and sent for biopsy. grade I esophageal varicies. Gastroenterology seeing in consultation. Hemoglobin stable at 9.8. No signs of hemoptysis or hematemesis. GI has no plans for EGD at this point due to risk of perforation. We will consider EGD if patient presents with signs of esophageal bleeding. Qualifiers: Esophageal varices type: secondary Qualified Code(s): I85.10 - Secondary esophageal varices without bleeding (7) Thrombocytopenia Current Visit: Yes Status: Acute Secondary to decompensated cirrhosis. Platelet level stable at 54. (8) ELLIOT (acute kidney injury) Current Visit: Yes Status: Acute Baseline creatinine from 0.9-1.0. Creatinine stable at 1.99. ELLIOT in setting of sepsis, PNA, STEMI, and contrast nephropathy. Finished [facility] dialysis today. Will be transitioned to HD. - Start HD. - avoid nephrotoxins. - Accurate I/O's. - Continue dialysis. (9) DVT prophylaxis Current Visit: Yes Status: Acute On heparin 5000 U SQ BID. Subjective Principal diagnosis: Acute respiratory failure, PNA, STEMI, Cirrhosis Interval history: When seen today patient said that he is feeling better than yesterday. He admits to a minor cough with green sputum production. He denies any fever or chills. Admits to some minor chest pain when coughing. Says his breathing has improved since yesterday. Admits to minor diffuse abdominal pain which has improved from yesterday. He denies any nausea or vomiting. Objective PUL Vital signs: Last Vital Signs Temp 97.7 F 03/16/18 05:26 Pulse 62 03/16/18 07:39 Resp 16 03/16/18 07:00 BP 145/63 03/16/18 07:00 Pulse Ox 95 03/16/18 07:00 General appearance: no acute distress Eyes: icteric (Mild scleral icterus bilaterally) ENT: oropharynx moist Effort: normal Auscultation: bilateral: clear Percussion: bilateral: not dull Tactile fremitus: bilateral: normal Cardiovascular: murmur noted (Regurgitative murmur on aortic post) Gastrointestinal: hypoactive bowel sounds, soft, tender (Minor diffuse tenderness with deep palpation), non-distended Integumentary: normal Extremities: no cyanosis, no edema, no clubbing, pink and warm, pulses normal, no ischemia or petechiae Musculoskeletal: no deformities normal mental status mood appropriate, affect normal Results - Laboratory Findings CBC and BMP: 06/19/18 03:33 03/16/18 04:00 ABG ABG pH 7.30 pH Units (7.32-7.45) L 03/15/18 05:15 ABG pCO2 51 mmHg (35-45) H 03/15/18 05:15 ABG pO2 97 mmHg (85-104) 03/15/18 05:15 ABG O2 Saturation 97 % (95-98) 03/15/18 05:15 PT/INR, D-dimer PT 13.2 Seconds (9.4-12.1) H 03/14/18 09:35 Abnormal lab findings: Abnormal lab results WBC 4.2 K/mcL (4.3-11.1) L 03/16/18 03:33 RBC 3.36 M/mcL (4.19-5.50) L 03/16/18 03:33 Hgb 9.8 g/dL (12.9-16.9) L 03/16/18 03:33 Hct 31.0 % (37.5-50.1) L 03/16/18 03:33 RDW 15.8 % (11.5-14.5) H 03/16/18 03:33 Plt Count 54 K/mcL (140-400) L 03/16/18 03:33 Immature Gran % 5.2 % (0-4) H 03/14/18 04:03 Metamyelocytes % 10.0 % (0) H 03/09/18 10:38 Nucleated RBCs/100 WBC 0.7 /100 WBC (0) H 03/16/18 03:33 Reactive Lymphocytes Present (Not Present) A 03/09/18 10:38 Platelet Estimate Decreased (Normal) L 03/16/18 03:33 Polychromasia 1+ (Not Present) A 03/15/18 07:01 Anisocytosis 1+ (Not Present) A 03/15/18 07:01 PT 13.2 Seconds (9.4-12.1) H 03/14/18 09:35 ABG pH 7.30 pH Units (7.32-7.45) L 03/15/18 05:15 ABG pCO2 51 mmHg (35-45) H 03/15/18 05:15 ABG Total CO2 27 mEq/L (20-26) H 03/15/18 05:15 BUN 40 mg/dL (6-20) H 03/16/18 04:00 Creatinine 1.99 mg/dL (0.70-1.30) H 03/16/18 04:00 Est GFR ( Amer) 42 (> 60) L 03/16/18 04:00 Est GFR (Non-Af Amer) 35 (> 60) L 03/16/18 04:00 Glucose 187 mg/dL (70-105) H 03/16/18 04:00 POC Glucose 149 mg/dL (70-99) H 03/15/18 23:24 Calculated Osmolality 301 (280-300) H 03/16/18 04:00 Total Bilirubin 4.2 mg/dL (0.3-1.0) H 03/16/18 04:00 Direct Bilirubin 1.3 mg/dL (0.0-0.2) H 03/14/18 04:03 Indirect Bilirubin 2.3 mg/dL (0.0-1.2) H 03/14/18 04:03 Ammonia 64 mcmol/L (16-53) H 03/12/18 03:55 Troponin I 0.05 ng/mL (< 0.04) H* 03/11/18 12:08 B-Natriuretic Peptide 755 pg/mL (Less than 100) H 03/10/18 00:57 Globulin 1.9 g/dL (2.4-3.5) L 03/16/18 04:00 Albumin/Globulin Ratio 2.4 (1.1-2.2) H 03/16/18 04:00 Triglycerides 166 mg/dL (< 150) H 03/10/18 00:57 VLDL Cholesterol, Calc 33 mg/dL (< 31) H 03/10/18 00:57 HDL Cholesterol 33 mg/dL (40-59) L 03/10/18 00:57 Lipase 5 Units/L (11-82) L 03/09/18 10:38 Ur Specific [place] > 1.030 (1.010-1.025) H 03/09/18 10:58 Urine Protein 30 mg/dL (Neg-Trace) H 03/09/18 10:58 Urine Glucose (UA) >=1000 mg/dL (Normal) H 03/09/18 10:58 Urine Ketones Trace mg/dL (Negative) H 03/09/18 10:58 Urine Blood Trace (Negative) H 03/09/18 10:58 H. influenzae (PCR) DETECTED (Not Detect) A 03/09/18 11:58 - Clinical Findings Intake & Output: Intake & Output 03/15/18 03/16/18 03/16/18 23:59 07:59 15:59 Intake Total 560 / 560 340 / 340 Output Total 1256 / 1256 200 / 200 Balance -696 / -696 140 / 140 Weight 116.4 kg - VTE Documentation of Mechanical Device: Intermittent pneumatic compression device Consult Discharge Plan - Plan Referrals: Derick Ellis DO [Primary Care Provider] - <Fortunato Alegria - Last Filed: 03/16/18 17:21> Date of Encounter: 03/16/18 Objective PUL Vital signs: Last Vital Signs Temp 97.8 F 03/16/18 15:32 Pulse 69 03/16/18 15:32 Resp 17 03/16/18 15:32 BP 174/60 03/16/18 15:32 Pulse Ox 93 03/16/18 15:32 Results - Laboratory Findings CBC and BMP: 03/16/18 03:33 03/16/18 04:00 ABG ABG pH 7.30 pH Units (7.32-7.45) L 03/15/18 05:15 ABG pCO2 51 mmHg (35-45) H 03/15/18 05:15 ABG pO2 97 mmHg (85-104) 03/15/18 05:15 ABG O2 Saturation 97 % (95-98) 03/15/18 05:15 PT/INR, D-dimer PT 13.2 Seconds (9.4-12.1) H 03/14/18 09:35 Abnormal lab findings: Abnormal lab results WBC 4.2 K/mcL (4.3-11.1) L 03/16/18 03:33 RBC 3.36 M/mcL (4.19-5.50) L 03/16/18 03:33 Hgb 9.8 g/dL (12.9-16.9) L 03/16/18 03:33 Hct 31.0 % (37.5-50.1) L 03/16/18 03:33 RDW 15.8 % (11.5-14.5) H 03/16/18 03:33 Plt Count 54 K/mcL (140-400) L 03/16/18 03:33 Immature Gran % 5.2 % (0-4) H 03/14/18 04:03 Metamyelocytes % 10.0 % (0) H 03/09/18 10:38 Nucleated RBCs/100 WBC 0.7 /100 WBC (0) H 03/16/18 03:33 Reactive Lymphocytes Present (Not Present) A 03/09/18 10:38 Platelet Estimate Decreased (Normal) L 03/16/18 03:33 Polychromasia 1+ (Not Present) A 03/15/18 07:01 Anisocytosis 1+ (Not Present) A 03/15/18 07:01 PT 13.2 Seconds (9.4-12.1) H 03/14/18 09:35 ABG pH 7.30 pH Units (7.32-7.45) L 03/15/18 05:15 ABG pCO2 51 mmHg (35-45) H 03/15/18 05:15 ABG Total CO2 27 mEq/L (20-26) H 03/15/18 05:15 BUN 40 mg/dL (6-20) H 03/16/18 04:00 Creatinine 1.99 mg/dL (0.70-1.30) H 03/16/18 04:00 Est GFR ( Amer) 42 (> 60) L 03/16/18 04:00 Est GFR (Non-Af Amer) 35 (> 60) L 03/16/18 04:00 Glucose 187 mg/dL (70-105) H 03/16/18 04:00 POC Glucose 149 mg/dL (70-99) H 03/15/18 23:24 Calculated Osmolality 301 (280-300) H 03/16/18 04:00 Total Bilirubin 4.2 mg/dL (0.3-1.0) H 03/16/18 04:00 Direct Bilirubin 1.3 mg/dL (0.0-0.2) H 03/14/18 04:03 Indirect Bilirubin 2.3 mg/dL (0.0-1.2) H 03/14/18 04:03 Ammonia 64 mcmol/L (16-53) H 03/12/18 03:55 Troponin I 0.05 ng/mL (< 0.04) H* 03/11/18 12:08 B-Natriuretic Peptide 755 pg/mL (Less than 100) H 03/10/18 00:57 Globulin 1.9 g/dL (2.4-3.5) L 03/16/18 04:00 Albumin/Globulin Ratio 2.4 (1.1-2.2) H 03/16/18 04:00 Triglycerides 166 mg/dL (< 150) H 03/10/18 00:57 VLDL Cholesterol, Calc 33 mg/dL (< 31) H 03/10/18 00:57 HDL Cholesterol 33 mg/dL (40-59) L 03/10/18 00:57 Lipase 5 Units/L (11-82) L 03/09/18 10:38 Ur Specific [place] > 1.030 (1.010-1.025) H 03/09/18 10:58 Urine Protein 30 mg/dL (Neg-Trace) H 03/09/18 10:58 Urine Glucose (UA) >=1000 mg/dL (Normal) H 03/09/18 10:58 Urine Ketones Trace mg/dL (Negative) H 03/09/18 10:58 Urine Blood Trace (Negative) H 03/09/18 10:58 H. influenzae (PCR) DETECTED (Not Detect) A 03/09/18 11:58 - Clinical Findings Intake & Output: Intake & Output 03/16/18 03/16/18 03/16/18 07:59 15:59 23:59 Intake Total 340 / 340 Output Total 200 / 200 200 / 200 Balance 140 / 140 -200 / -200 Weight 116.4 kg - Attending Attestation I examined this patient and my medical decision-making was reviewed with the Resident Physician. I agree with the documented findings, disposition and treatment plan as described except to the extent set forth below. Patient seen and examined. Labs, radiology, chart personally reviewed. 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 No major changes after extubation and continue incentive spirometry. Cardiovascular: stable GI: Nutrition per dietary and GI prophylaxis per routine. Patient needs follow- up with a GI Heme: DVT prophylaxis per routine Renal; urine out put and renal funtion reviewed. Discussed with hand patcher and hemodialysis will be done but not today. Endorcine: blood glucose is monitored Lines: all lines checked and no evidence of infections Skin: skin care to prevent pressure ulcers per nursing routine care Discussed with the family and patient will be transferred to the floor.
[2018-03-16] MEDS ORDERED: Ipratropium/Albuterol Neb 3 ML IH PRN (15:35)
[2018-03-16] MEDS ORDERED: Lactulose Oral Soln 20 GM/30 ML UDC PO PRN (15:35)
[2018-03-16] MEDS ORDERED: ALPRAZolam 1 MG TABLET PO PRN (15:35)
[2018-03-17] MEDS: Piperacillin/Tazobactam 3.375 GM in 0.9 % Sodium Chloride Mini Bag 100 ML IVPB SCH ×3 (00:45→18:02)
[2018-03-17] MEDS: Insulin LISPRO 300 UNITS/3 ML VIAL SQ SCH ×4 (00:46→18:01)
[2018-03-17] MEDS: *HR* Heparin 5,000 UNIT/ML VIAL SQ SCH ×2 (05:12→18:00)
[2018-03-17 08:45] LABS: Basophils % 0.5 %; Mean Corpuscular Volume 91.4 fL (83.0-100.0); Red Cell Distribution Width 15.4 % (11.5-14.5)
[2018-03-17 08:47] LABS: Eosinophils # 0.1 K/mcL (0.0-0.6); Eosinophils % 1.5 %; Hematocrit 33.8 % (37.5-50.1); Hemoglobin 10.9 g/dL (12.9-16.9); Immature Granulocytes % 5.7 % (0-4); Immature Platelets 6.1 % (1.1-6.1); Lymphocytes # 0.4 K/mcL (0.6-4.6); Lymphocytes % 10.8 %; Mean Corpuscular HGB Conc 32.2 g/dL (31.6-35.5); Mean Corpuscular Hemoglobin 29.5 pg (28.0-33.3); Mean Platelet Volume 10.4 fL (9.4-12.4); Monocytes # 0.3 K/mcL (0.0-1.3); Monocytes % 7.2 %; Neutrophils # 2.9 K/mcL (1.6-8.9); Segmented Neutrophils % 74.3 %
[2018-03-17 08:58] LABS: Platelet Count 52 K/mcL (140-400)
[2018-03-17] MEDS ORDERED: Pantoprazole 40 MG VIAL IVP SCH (09:00)
[2018-03-17 09:24] LABS: Platelet Estimate Decreased (Normal); Toxic Granulation Present (Not Present)
[2018-03-17 10:45] LABS: Calcium 9.2 mg/dL (8.6-10.3); Potassium 4.2 mEq/L (3.5-5.1)
[2018-03-17] MEDS ORDERED: 0.9 % Sodium Chloride 250 ML IVC PRN (10:49)
[2018-03-17] MEDS ORDERED: *HR* Heparin 10,000 UNIT/10 ML VIAL IV PRN (10:49)
[2018-03-17] MEDS ORDERED: 0.9 % Sodium Chloride 1,000 ML PRIME SCH (11:00)
--- NOTE | 2018-03-17 11:13 | Nephrology Progress Note ---
Date of Encounter: 03/17/18 Time of Encounter: 10:50 - Assessment and Plan (1) ELLIOT (acute kidney injury) Current Visit: Yes Status: Acute Will start intermittent HD today, orders given. Avoid nephrotoxins, Accurate I&O 's. Will continue to monitor. Subjective Principal diagnosis: Acute respiratory failure, PNA, STEMI, Cirrhosis Interval history: Laying quietly. States feeling better. Discussed HD today. Remains oliguric, documented 200 cc urine. Objective - Vital Signs Vital signs: Vital Signs Temp Pulse Resp BP Pulse Ox 03/17/18 10:59 98.5 F 68 20 156/66 95 03/17/18 06:50 96 03/17/18 06:39 98.7 F 62 20 143/50 93 03/17/18 05:15 68 16 127/67 97 03/17/18 00:48 61 18 118/53 92 03/16/18 21:12 98.4 F 69 17 134/67 93 03/16/18 15:32 97.8 F 69 17 174/60 93 03/16/18 11:39 98.0 F 67 17 153/60 94 Intake and Output 03/16/18 03/17/18 03/17/18 23:59 07:59 15:59 Intake Total 100 / 100 Output Total 600 / 600 Balance 100 / 100 -600 / -600 Intake: IV Fluids 100 / 100 Zosyn 3.375 GM In 0.9 % Sodium 100 / 100 Chloride (Mini-Bag +) 100 ML @ 25 mls/hr IVPB Q8HR [facility] Rx#: [id number] Output: Urine 600 / 600 Other: # Voids 1 Weight 117.1 kg Blood Glucose* 172 183 177 Patient Weight 03/17/18 23:59 Weight 117.1 kg - General Appearance General appearance: Present: well-developed, well-nourished, appears started age EENT: Present: mucous membranes moist Neck: Present: no JVD Respiratory: Present: clear Cardiology: Present: edema, regular rate, regular rhythm Additional Comments: mild pedal Dialysis Vascular Access: Venous Catheter Gastrointestinal: Present: hypoactive bowel sounds, no tenderness Integumentary: Present: warm and dry Neurologic: Present: alert and oriented x3 - Lab 03/17/18 08:31 03/17/18 09:53 Most recent lab results ABG pH 7.30 pH Units (7.32-7.45) L 03/15/18 05:15 ABG pCO2 51 mmHg (35-45) H 03/15/18 05:15 ABG pO2 97 mmHg (85-104) 03/15/18 05:15 ABG HCO3 25 mEq/L (21-27) 03/15/18 05:15 ABG O2 Saturation 97 % (95-98) 03/15/18 05:15 Calcium 9.2 mg/dL (8.6-10.3) 03/17/18 09:53 Phosphorus 3.7 mg/dL (2.7-4.5) 03/12/18 03:55 Magnesium 2.3 mg/dL (1.6-2.6) 03/11/18 16:22 Urine Sodium 12.0 mEq/L 03/11/18 09:19 - VTE Documentation of Mechanical Device: Intermittent pneumatic compression device Consult Discharge Plan - Plan Referrals: Derick Ellis DO [Primary Care Provider] -
[2018-03-17] MEDS ORDERED: 0.9 % Sodium Chloride 2,000 ML ONE (11:25)
[2018-03-17] MEDS: Aspirin 81 MG TAB.CHEW PO SCH (12:09)
--- NOTE | 2018-03-17 13:02 | Internal Med Progress Note ---
Date of Encounter: 03/17/18 Time of Encounter: 13:18 - Assessment and plan (1) Type 2 diabetes mellitus Current Visit: Yes Status: Chronic Assessment and plan: Advance to diabetic diet today, renal diet Qualifiers: Diabetes mellitus terminal supervisor insulin use: with fdc use Diabetes mellitus complication status: with hyperglycemia Qualified Code(s): E11.65 - Type 2 diabetes mellitus with hyperglycemia; Z79.4 - prison (current) use of insulin (2) Cirrhosis Current Visit: Yes Status: Acute Assessment and plan: History of cirrhosis MELD-Na 21, Child-Kenny class B. Total bili 4.7 today, improving RUQ US shows cholelithiasis with nonspecific gallbladder wall thickening and cirrhosis with stigmata of portal hypertension Patient did have episode of hepatic encephalopathy here requiring lactulose. Lactulose BID, titrate to acheive 2-4 BM per day Qualifiers: Hepatic cirrhosis type: other cirrhosis Qualified Code(s): K74.69 - Other cirrhosis of liver (3) Esophageal varices without bleeding Current Visit: Yes Status: Acute Assessment and plan: History of esophageal varices per recent egd endoscopy 03/02/18 Single 35mm sessile polyp removed and sent for biopsy Gastric polyp removed and sent for biopsy grade I esophageal varicies GI following patient No signs of acute bleed Qualifiers: Esophageal varices type: secondary Qualified Code(s): I85.10 - Secondary esophageal varices without bleeding (4) Cholelithiasis Current Visit: Yes Status: Acute Assessment and plan: Presented with right upper quadrant abdominal pain Right upper quadrant US shows cholelithiasis with nonspecific gallbladder wall thickening CBD without dilatation measuring 5 mm, no sonographic Lorenzo's sign Possibly secondary to liver disease and not cholecystitis He was also found cirrhosis with stigmata of portal hypertension including ascites GI seeing in consultation Qualifiers: Cholelithiasis location: other site Biliary obstruction: without biliary obstruction Qualified Code(s): K80.80 - Other cholelithiasis without obstruction (5) Chest pain, rule out acute myocardial infarction Current Visit: Yes Status: Acute Assessment and plan: Presented with shortness of breath and mild chest tightness CXR shows pleural effusions, CTA chest shows pleural effusions and suspected pneumonia Mildly elevated troponin, peaked at 0.05, trending down. Likely due to demand ischemia TTE-LVEF 50%. Indeterminate diastolic function. RV is mildly dilated. Function appears low normal. Mild tricuspid regurgitation. No pulmonary hypertension. Small pericardial effusion located along the inferolateral wall of the LV. No evidence for tamponade on this study. ECG, sinus rhythm-inferior OH which is old, no changes when compared to prior ECG from 2016 Patient seen to have STEMI during this admission, Cardiology was consulted. See assessment/Plan for STEMI (6) Pneumonia Current Visit: Yes Status: Acute Assessment and plan: presented with shortness of breath and mild chest tightness. On chronic oxygen 2.5 L nasal cannula. Requiring 4 L for respiratory support. CXR-trace bilateral pleural effusions and worsening of cardiomegaly CTA chest-negative for PE, mild patchy airspace opacity and minimal interstitial lung markings in both lung bases. New 14 mm groundglass nodule central right lung apex fever to represent inflammatory nodule but cannot rule out malignancy-follow up in 3 months; schedule prior to discharge Blood cultures growing GNR; Haemophilus influenzae 03/17: White blood cell count within normal limits. Blood culture positive for Haemophilus on 03/09. Continue Abx, stop Zosyn tomorrow. Qualifiers: Pneumonia type: due to unspecified organism Laterality: bilateral Lung location: unspecified part of lung Qualified Code(s): J18.9 - Pneumonia, unspecified organism (7) Abdominal pain Current Visit: Yes Status: Acute Qualifiers: Abdominal location: right upper quadrant Qualified Code(s): R10.11 - Right upper quadrant pain (8) Acute respiratory failure with hypoxia and hypercapnia Current Visit: Yes Status: Acute Assessment and plan: Acute on chronic respiratory failure Patient intubated and out of ICU. Currently on 4L O2 and is on 3L O2 at home per patient (9) ELLIOT (acute kidney injury) Current Visit: Yes Status: Acute Assessment and plan: Improving (10) CLL (chronic lymphocytic leukemia) Current Visit: No Status: Chronic (11) Hepatic encephalopathy Current Visit: Yes Status: Acute Assessment and plan: Resolved Had elevated ammonia which has since improved along with mental status. Continue Lactulose (12) Hypothyroidism Current Visit: No Status: Acute Qualifiers: Hypothyroidism type: unspecified Qualified Code(s): E03.9 - Hypothyroidism , unspecified (13) Lumbar degenerative disc disease Current Visit: No Status: Acute (14) STEMI (ST elevation myocardial infarction) Current Visit: Yes Status: Acute Assessment and plan: Continues to have STEMI on telemetry. On rectal ASA. Cardiology consulted and current recommendation is to hold off on acute intervention and holding off on the heparin drip given patient's sepsis, PNA, and history of esophageal varicies. - Continue aspirin - Continue to hold heparin drip. Qualifiers: Involved coronary artery: unspecified coronary artery Qualified Code(s): I21.3 - ST elevation (STEMI) myocardial infarction of unspecified site (15) Thrombocytopenia Current Visit: Yes Status: Acute - Time Spent With Patient Total time spent is greater than 50% in coordination of care (as documented) at patient's floor/unit and/or counseling patient: - Subjective Interval history: No acute events. Patient does complain of weakness from being in bed for so long. Also does have productive cough but breathing is better. - Constitutional Vitals: Temp Pulse Resp BP Pulse Ox 98.5 F 68 20 156/66 95 03/17/18 10:59 03/17/18 10:59 03/17/18 10:59 03/17/18 10:59 03/17/18 10:59 General appearance: Present: cooperative, A&O X 3, answers questions appropriately - Head Head exam: Present: atraumatic, normocephalic - ENT ENT exam: Present: mucous membranes moist - Respiratory Respiratory exam: Present: CTAB. Absent: accessory muscle use, rales, rhonchi, wheezes - Cardiovascular Cardiovascular exam: Present: RRR, +S1, +S2. Absent: diastolic murmur, gallop, rubs, systolic murmur - GI/Abdominal GI/Abdominal exam: Present: normal bowel sounds, soft, no peritoneal signs. Absent: distended, tenderness - Extremities Exam Extremities exam: Present: warm, radial pulses palpable and symmetrical. Absent : calf tenderness, cyanotic, pedal edema - Skin Skin exam: Present: dry, intact Internal Medicine: Result - Labs CBC & Chem 7: 03/17/18 08:31 03/17/18 09:53 Labs: Short CBC 03/17/18 Range/Units 08:31 WBC 3.9 L (4.3-11.1) K/mcL Hgb 10.9 L (12.9-16.9) g/dL Hct 33.8 L (37.5-50.1) % Plt Count 52 L (140-400) K/mcL Neutrophils # 2.9 (1.6-8.9) K/mcL BMP 03/17/18 09:53 Sodium 138 Potassium 4.2 Chloride 102 Carbon Dioxide 26 BUN 43 H Creatinine 1.76 H Glucose 192 H Calcium 9.2 - ABG Interpretation ABG results: ABG ABG pH 7.30 pH Units (7.32-7.45) L 03/15/18 05:15 ABG pCO2 51 mmHg (35-45) H 03/15/18 05:15 ABG pO2 97 mmHg (85-104) 03/15/18 05:15 ABG O2 Saturation 97 % (95-98) 03/15/18 05:15 PT/INR, D-dimer PT 13.2 Seconds (9.4-12.1) H 03/14/18 09:35 - VTE Documentation of Mechanical Device: Intermittent pneumatic compression device Consult Discharge Plan - Plan Referrals: Derick Ellis DO [Primary Care Provider] -
[2018-03-17] MEDS ORDERED: *HR* OxyCODONE Immed Rel 5 MG TABLET PO PRN (13:20)
[2018-03-17] MEDS ORDERED: D5% in Water 1,000 ML IVC PRN (15:54)
[2018-03-17] MEDS ORDERED: Dextrose Gel 15 GM/37.5 ML TUBE PO PRN ×2 (15:54)
[2018-03-17] MEDS ORDERED: *HR* Dextrose 50 % in Water (Syg) 50 ML SYRINGE IVP PRN (15:54)
[2018-03-17] MEDS: Nystatin SUSP 5 ML UD.LIQ PO SCH ×3 (18:00→20:26)
[2018-03-17] MEDS: Simethicone 80 MG TAB.CHEW PO SCH (18:00)
[2018-03-17] MEDS: Lactulose Oral Soln 20 GM/30 ML UDC PO SCH (20:26)
[2018-03-18] MEDS: Insulin LISPRO 300 UNITS/3 ML VIAL SQ SCH ×5 (00:42→20:56)
[2018-03-18] MEDS: Piperacillin/Tazobactam 3.375 GM in 0.9 % Sodium Chloride Mini Bag 100 ML IVPB SCH ×3 (00:43→15:41)
[2018-03-18] MEDS: *HR* Heparin 5,000 UNIT/ML VIAL SQ SCH (04:46)
[2018-03-18 05:03] LABS: Basophils % 0.3 %; Eosinophils # 0.1 K/mcL (0.0-0.6); Eosinophils % 1.4 %; Hematocrit 33.2 % (37.5-50.1); Hemoglobin 10.7 g/dL (12.9-16.9); Immature Granulocytes % 4.2 % (0-4); Lymphocytes # 0.5 K/mcL (0.6-4.6); Lymphocytes % 14.5 %; Mean Corpuscular HGB Conc 32.2 g/dL (31.6-35.5); Mean Corpuscular Hemoglobin 29.5 pg (28.0-33.3); Mean Corpuscular Volume 91.5 fL (83.0-100.0); Mean Platelet Volume 11.1 fL (9.4-12.4); Monocytes # 0.3 K/mcL (0.0-1.3); Monocytes % 8.4 %; Neutrophils # 2.6 K/mcL (1.6-8.9); Platelet Count 49 K/mcL (140-400); Red Blood Count 3.63 M/mcL (4.19-5.50); Red Cell Distribution Width 15.6 % (11.5-14.5); Segmented Neutrophils % 71.2 %
[2018-03-18 06:42] LABS: Calcium 9.2 mg/dL (8.6-10.3); Potassium 3.7 mEq/L (3.5-5.1)
[2018-03-18] MEDS: Lactulose Oral Soln 20 GM/30 ML UDC PO SCH ×2 (08:48→20:44)
[2018-03-18] MEDS: Aspirin 81 MG TAB.CHEW PO SCH (08:50)
[2018-03-18] MEDS: Simethicone 80 MG TAB.CHEW PO SCH (08:50)
[2018-03-18] MEDS: Nystatin SUSP 5 ML UD.LIQ PO SCH ×4 (08:50→20:44)
--- NOTE | 2018-03-18 08:58 | Nephrology Progress Note ---
Date of Encounter: 03/18/18 Time of Encounter: 08:30 - Assessment and Plan (1) ELLIOT (acute kidney injury) Current Visit: Yes Status: Acute Renal fct improved, creat 1.74. Appears renal recovery as states patient voided 1400cc yesterday that she is aware of and current 200 cc in urinal this morning. Avoid nephrotoxins, Accurate I&O's. Will continue to monitor. Will keep HD catheter in and reeval tomorrow for removal. Subjective Principal diagnosis: Acute respiratory failure, PNA, STEMI, Cirrhosis Interval history: Sitting up in chair. No urine output documented. at bedside and states emptied urinal yesterday on three occasions and wrote down amounts, 500cc, 500cc and 400cc. Spoke with nursing about accurate I&O's. Objective - Vital Signs Vital signs: Vital Signs Temp Pulse Resp BP Pulse Ox 03/18/18 07:10 98.8 F 78 15 137/59 91 03/18/18 03:24 98.6 F 77 16 127/59 97 03/17/18 23:53 98.6 F 71 18 124/46 97 03/17/18 21:13 98.4 F 78 18 131/40 93 03/17/18 17:22 97.7 F 18 117/52 03/17/18 17:05 115/59 03/17/18 16:50 105/52 03/17/18 16:35 109/56 03/17/18 16:20 101/52 03/17/18 16:05 107/76 03/17/18 15:50 109/54 03/17/18 15:35 123/55 03/17/18 15:20 110/61 03/17/18 15:05 114/54 03/17/18 14:50 125/63 03/17/18 14:35 116/51 03/17/18 14:20 112/57 03/17/18 14:05 98.0 F 18 120/59 03/17/18 10:59 98.5 F 68 20 156/66 95 Intake and Output 03/17/18 03/18/18 03/18/18 23:59 07:59 15:59 Intake Total 800 / 800 100 / 100 Output Total 3350 / 3350 0 / 0 Balance -2550 / -2550 100 / 100 Intake: IV Fluids 200 / 200 100 / 100 Zosyn 3.375 GM In 0.9 % Sodium 200 / 200 100 / 100 Chloride (Mini-Bag +) 100 ML @ 25 mls/hr IVPB Q8HR [facility] Rx#: [id number] Oral 600 / 600 0 / 0 Output: Urine 750 / 750 0 / 0 Total Dialysis (HD) Output 2600 / 2600 Other: Meal Dinner Stool Size Small Stool Consistency liquid Stool Color Brown Green # Bowel Movements 1 Weight 118.5 kg Blood Glucose* 238 204 Hemodialysis Net Fluid Removed 2000 (mL) Patient Weight 03/18/18 23:59 Weight 118.5 kg - General Appearance General appearance: Present: well-developed, well-nourished, appears started age , obese EENT: Present: mucous membranes moist Neck: Present: no JVD Respiratory: Present: clear Cardiology: Present: no edema, regular rate, regular rhythm Dialysis Vascular Access: Venous Catheter Gastrointestinal: Present: normoactive bowel sounds, no tenderness Integumentary: Present: warm and dry Neurologic: Present: alert and oriented x3 - Lab 03/18/18 04:28 03/18/18 05:43 Most recent lab results ABG pH 7.30 pH Units (7.32-7.45) L 03/15/18 05:15 ABG pCO2 51 mmHg (35-45) H 03/15/18 05:15 ABG pO2 97 mmHg (85-104) 03/15/18 05:15 ABG HCO3 25 mEq/L (21-27) 03/15/18 05:15 ABG O2 Saturation 97 % (95-98) 03/15/18 05:15 Calcium 9.2 mg/dL (8.6-10.3) 03/18/18 05:43 Phosphorus 3.7 mg/dL (2.7-4.5) 03/12/18 03:55 Magnesium 2.3 mg/dL (1.6-2.6) 03/11/18 16:22 Urine Sodium 12.0 mEq/L 03/11/18 09:19 - VTE Documentation of Mechanical Device: Intermittent pneumatic compression device Consult Discharge Plan - Plan Referrals: Derick Ellis DO [Primary Care Provider] -
--- NOTE | 2018-03-18 14:29 | Internal Med Progress Note ---
Date of Encounter: 03/18/18 Time of Encounter: 14:26 - Assessment and plan (1) STEMI (ST elevation myocardial infarction) Current Visit: Yes Status: Acute Assessment and plan: Continues to have STEMI on telemetry. Cardiology consulted and recommendation is to hold off on acute intervention and holding off on the heparin drip given patient's sepsis, PNA, and history of esophageal varicies. - Continue aspirin - Close follow-up as outpatient Qualifiers: Involved coronary artery: unspecified coronary artery Qualified Code(s): I21.3 - ST elevation (STEMI) myocardial infarction of unspecified site (2) Acute respiratory failure with hypoxia and hypercapnia Current Visit: Yes Status: Acute Assessment and plan: Acute on chronic respiratory failure Patient was extubated on 03/15 and transferred out of ICU on 03/16. Currently on 4L O2 and is on 3L O2 at home per patient (3) Chest pain, rule out acute myocardial infarction Current Visit: Yes Status: Acute Assessment and plan: Presented with shortness of breath and mild chest tightness CXR shows pleural effusions, CTA chest shows pleural effusions and suspected pneumonia Mildly elevated troponin, peaked at 0.05, trending down. Likely due to demand ischemia TTE-LVEF 50%. Indeterminate diastolic function. RV is mildly dilated. Function appears low normal. Mild tricuspid regurgitation. No pulmonary hypertension. Small pericardial effusion located along the inferolateral wall of the LV. No evidence for tamponade on this study. ECG, sinus rhythm-inferior PA which is old, no changes when compared to prior ECG from 2016 Patient seen to have STEMI during this admission, Cardiology was consulted. See assessment/Plan for STEMI (4) Cirrhosis Current Visit: Yes Status: Acute Assessment and plan: History of cirrhosis MELD-Na 21, Child-Kenny class B. Total bili 4.7 today, improving RUQ US shows cholelithiasis with nonspecific gallbladder wall thickening and cirrhosis with stigmata of portal hypertension Patient did have episode of hepatic encephalopathy here requiring lactulose. 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 (6) Esophageal varices without bleeding Current Visit: Yes Status: Acute Assessment and plan: History of esophageal varices per recent egd endoscopy 03/02/18 Single 35mm sessile polyp removed and sent for biopsy Gastric polyp removed and sent for biopsy grade I esophageal varicies GI following patient No signs of acute bleed Qualifiers: Esophageal varices type: secondary Qualified Code(s): I85.10 - Secondary esophageal varices without bleeding (7) Cholelithiasis Current Visit: Yes Status: Acute Assessment and plan: Presented with right upper quadrant abdominal pain Right upper quadrant US shows cholelithiasis with nonspecific gallbladder wall thickening CBD without dilatation measuring 5 mm, no sonographic Lorenzo's sign Possibly secondary to liver disease and not cholecystitis He was also found cirrhosis with stigmata of portal hypertension including ascites GI seeing in consultation Qualifiers: Cholelithiasis location: other site Biliary obstruction: without biliary obstruction Qualified Code(s): K80.80 - Other cholelithiasis without obstruction (8) Pneumonia Current Visit: Yes Status: Acute Assessment and plan: presented with shortness of breath and mild chest tightness. On chronic oxygen 2.5 L nasal cannula. Requiring 4 L for respiratory support. CXR-trace bilateral pleural effusions and worsening of cardiomegaly CTA chest-negative for PE, mild patchy airspace opacity and minimal interstitial lung markings in both lung bases. New 14 mm groundglass nodule central right lung apex fever to represent inflammatory nodule but cannot rule out malignancy-follow up in 3 months; schedule prior to discharge Blood cultures growing GNR; Haemophilus influenzae 03/17: White blood cell count within normal limits. Blood culture positive for Haemophilus on 03/09. Continue Abx, stop Zosyn tomorrow. Qualifiers: Pneumonia type: due to unspecified organism Laterality: bilateral Lung location: unspecified part of lung Qualified Code(s): J18.9 - Pneumonia, unspecified organism (9) Abdominal pain Current Visit: Yes Status: Acute Qualifiers: Abdominal location: right upper quadrant Qualified Code(s): R10.11 - Right upper quadrant pain (10) ELLIOT (acute kidney injury) Current Visit: Yes Status: Acute Assessment and plan: Improving Nephrology following, recommendations appreciated. (11) CLL (chronic lymphocytic leukemia) Current Visit: No Status: Chronic (12) Hepatic encephalopathy Current Visit: Yes Status: Acute Assessment and plan: Resolved Had elevated ammonia which has since improved along with mental status. Continue Lactulose (13) Hypothyroidism Current Visit: No Status: Acute Qualifiers: Hypothyroidism type: unspecified Qualified Code(s): E03.9 - Hypothyroidism , unspecified (14) Lumbar degenerative disc disease Current Visit: No Status: Acute (15) Thrombocytopenia Current Visit: Yes Status: Acute - Time Spent With Patient Total time spent is greater than 50% in coordination of care (as documented) at patient's floor/unit and/or counseling patient: - Subjective Interval history: No acute events. Patient does complain of weakness from being in bed for so long. Also does have productive cough but breathing is better. - Constitutional Vitals: Temp Pulse Resp BP Pulse Ox 98.3 F 74 16 116/59 98 03/18/18 10:58 03/18/18 10:58 03/18/18 10:58 03/18/18 10:58 03/18/18 10:58 General appearance: Present: cooperative, A&O X 3, answers questions appropriately Exam: - Head Head exam: Present: atraumatic, normocephalic - ENT ENT exam: Present: mucous membranes moist - Respiratory Respiratory exam: Present: CTAB. Absent: accessory muscle use, rales, rhonchi, wheezes - Cardiovascular Cardiovascular exam: Present: RRR, +S1, +S2. Absent: diastolic murmur, gallop, rubs, systolic murmur - GI/Abdominal GI/Abdominal exam: Present: normal bowel sounds, soft, no peritoneal signs. Absent: distended, tenderness - Extremities Exam Extremities exam: Present: warm, radial pulses palpable and symmetrical. Absent : calf tenderness, cyanotic, pedal edema - Skin Skin exam: Present: dry, intact Internal Medicine: Result - Labs CBC & Chem 7: 03/18/18 04:28 03/18/18 05:43 Labs: Short CBC 03/18/18 Range/Units 04:28 WBC 3.6 L (4.3-11.1) K/mcL Hgb 10.7 L (12.9-16.9) g/dL Hct 33.2 L (37.5-50.1) % Plt Count 49 L (140-400) K/mcL Neutrophils # 2.6 (1.6-8.9) K/mcL BMP 03/18/18 05:43 Sodium 138 Potassium 3.7 Chloride 99 Carbon Dioxide 29 BUN 29 H Creatinine 1.74 H Glucose 231 H Calcium 9.2 - ABG Interpretation ABG results: ABG ABG pH 7.30 pH Units (7.32-7.45) L 03/15/18 05:15 ABG pCO2 51 mmHg (35-45) H 03/15/18 05:15 ABG pO2 97 mmHg (85-104) 03/15/18 05:15 ABG O2 Saturation 97 % (95-98) 03/15/18 05:15 PT/INR, D-dimer PT 13.2 Seconds (9.4-12.1) H 03/14/18 09:35 - VTE Documentation of Mechanical Device: Intermittent pneumatic compression device Consult Discharge Plan - Plan Referrals: Derick Ellis DO [Primary Care Provider] - 03/29/18 12:00 pm
[2018-03-19 04:56] LABS: Basophils % 0.6 %; Immature Granulocytes % 1.5 % (0-4); Mean Corpuscular HGB Conc 32.2 g/dL (31.6-35.5); Mean Corpuscular Hemoglobin 28.8 pg (28.0-33.3)
[2018-03-19 04:58] LABS: Eosinophils # 0.1 K/mcL (0.0-0.6); Eosinophils % 1.5 %; Hematocrit 29.8 % (37.5-50.1); Hemoglobin 9.6 g/dL (12.9-16.9); Immature Platelets 5.2 % (1.1-6.1); Lymphocytes # 0.6 K/mcL (0.6-4.6); Lymphocytes % 17.7 %; Mean Corpuscular Volume 89.5 fL (83.0-100.0); Mean Platelet Volume 10.1 fL (9.4-12.4); Monocytes # 0.4 K/mcL (0.0-1.3); Monocytes % 11.2 %; Neutrophils # 2.3 K/mcL (1.6-8.9); Red Blood Count 3.33 M/mcL (4.19-5.50); Red Cell Distribution Width 15.2 % (11.5-14.5); Segmented Neutrophils % 67.5 %
[2018-03-19 05:02] LABS: Platelet Count 48 K/mcL (140-400)
[2018-03-19 05:41] LABS: Calcium 9.2 mg/dL (8.6-10.3); Potassium 3.5 mEq/L (3.5-5.1)
--- NOTE | 2018-03-19 08:25 | Nephrology Progress Note ---
Date of Encounter: 03/19/18 Time of Encounter: 08:23 - Assessment and Plan (1) ELLIOT (acute kidney injury) Current Visit: Yes Status: Acute The patient's creatinine is stable at 1.72. He no longer requires dialysis. We will have the temporary dialysis catheter removed. Subjective Principal diagnosis: Acute respiratory failure, PNA, STEMI, Cirrhosis Interval history: The patient reports no new complaints. His creatinine has plateaued. Urine output is recorded as 200 but is likely not accurate. Objective - Vital Signs Vital signs: Vital Signs Temp Pulse Resp BP Pulse Ox 03/19/18 07:06 98.6 F 81 18 146/63 96 03/19/18 05:05 97.6 F 77 18 118/58 96 03/18/18 20:48 98.2 F 77 18 132/65 97 03/18/18 20:44 97 03/18/18 15:37 97.8 F 71 16 113/75 95 03/18/18 10:58 98.3 F 74 16 116/59 98 Intake and Output 03/18/18 03/19/18 03/19/18 23:59 07:59 15:59 Intake Total 350 / 350 0 / 0 Output Total 175 / 175 500 / 500 Balance 175 / 175 -500 / -500 Intake: Oral 350 / 350 0 / 0 Output: Urine 175 / 175 500 / 500 Other: Meal Dinner Percent of Meal Consumed 5% Stool Size Moderate Stool Consistency soft Stool Color Brown # Voids 0 # Bowel Movements 1 Weight 113.1 kg Blood Glucose* 283 233 Patient Weight 03/19/18 23:59 Weight 113.1 kg - General Appearance Exam: Patient is alert and oriented. He is in no acute distress. Lungs essentially clear to auscultation. Heart regular rate and rhythm. Abdomen was benign. There is no lower extremity swelling. There is a temperature dialysis catheter in the right internal jugular vein. - Lab 03/19/18 04:32 03/19/18 04:32 Most recent lab results ABG pH 7.30 pH Units (7.32-7.45) L 03/15/18 05:15 ABG pCO2 51 mmHg (35-45) H 03/15/18 05:15 ABG pO2 97 mmHg (85-104) 03/15/18 05:15 ABG HCO3 25 mEq/L (21-27) 03/15/18 05:15 ABG O2 Saturation 97 % (95-98) 03/15/18 05:15 Calcium 9.2 mg/dL (8.6-10.3) 03/19/18 04:32 Phosphorus 3.7 mg/dL (2.7-4.5) 03/12/18 03:55 Magnesium 2.3 mg/dL (1.6-2.6) 03/11/18 16:22 Urine Sodium 12.0 mEq/L 03/11/18 09:19 - VTE Documentation of Mechanical Device: Intermittent pneumatic compression device Consult Discharge Plan - Plan Referrals: Derick Ellis DO [Primary Care Provider] - 03/29/18 12:00 pm
[2018-03-19] MEDS: Aspirin 81 MG TAB.CHEW PO SCH (08:28)
[2018-03-19] MEDS: Insulin LISPRO 300 UNITS/3 ML VIAL SQ SCH ×3 (08:28→16:36)
[2018-03-19] MEDS: Lactulose Oral Soln 20 GM/30 ML UDC PO SCH (08:28)
[2018-03-19] MEDS: Nystatin SUSP 5 ML UD.LIQ PO SCH ×3 (08:28→16:36)
[2018-03-19] MEDS: Simethicone 80 MG TAB.CHEW PO SCH (08:28)
[2018-03-19 16:15] VITALS: BP 118/60
--- NOTE | 2018-03-19 16:22 | Discharge Summary ---
<Ghulam Randolph - Last Filed: 03/19/18 16:49> Orders not resulted at time of discharge: Pending orders 03/19/18 13:35 Culture,Blood [BC] Routine 03/19/18 14:02 ECG 12 lead ECG [ECG] Stat 03/20/18 04:00 BMP [Basic Metabolic Panel] AM 0400 Complete Blood Count [HEME] AM 0400 03/21/18 04:00 BMP [Basic Metabolic Panel] AM 0400 Complete Blood Count [HEME] AM 0400 03/22/18 04:00 BMP [Basic Metabolic Panel] AM 0400 Complete Blood Count [HEME] AM 0400 03/23/18 04:00 BMP [Basic Metabolic Panel] AM 0400 Complete Blood Count [HEME] AM 0400 03/24/18 04:00 BMP [Basic Metabolic Panel] AM 0400 Complete Blood Count [HEME] AM 0400 Date of Encounter: 03/19/18 Time of Encounter: 10:00 - Discharge Diagnosis (1) Pneumonia Priority: Primary Status: Acute Qualifiers: Pneumonia type: due to unspecified organism Laterality: bilateral Lung location: unspecified part of lung Qualified Code(s): J18.9 - Pneumonia, unspecified organism (2) Type 2 diabetes mellitus Priority: Secondary Status: Chronic Qualifiers: Diabetes mellitus mcfp insulin use: with mcfp use Diabetes mellitus complication status: with hyperglycemia Qualified Code(s): E11.65 - Type 2 diabetes mellitus with hyperglycemia; 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 (3) CLL (chronic lymphocytic leukemia) Priority: Secondary Status: Chronic (4) Cirrhosis Priority: Secondary Status: Acute Qualifiers: Hepatic cirrhosis type: other cirrhosis Qualified Code(s): K74.69 - Other cirrhosis of liver (5) Lumbar degenerative disc disease Priority: Secondary Status: Acute (6) Esophageal varices without bleeding Priority: Secondary Status: Acute Qualifiers: Esophageal varices type: secondary Qualified Code(s): I85.10 - Secondary esophageal varices without bleeding (7) Hypothyroidism Priority: Secondary Status: Acute Qualifiers: Hypothyroidism type: unspecified Qualified Code(s): E03.9 - Hypothyroidism , unspecified (8) Cholelithiasis Priority: Secondary Status: Acute Qualifiers: Cholelithiasis location: other site Biliary obstruction: without biliary obstruction Qualified Code(s): K80.80 - Other cholelithiasis without obstruction (9) Chest pain, rule out acute myocardial infarction Priority: Secondary Status: Acute (10) Abdominal pain Priority: Secondary Status: Acute Qualifiers: Abdominal location: right upper quadrant Qualified Code(s): R10.11 - Right upper quadrant pain (11) ELLIOT (acute kidney injury) Priority: Secondary Status: Acute (12) STEMI (ST elevation myocardial infarction) Priority: Secondary Status: Ruled-out Qualifiers: Involved coronary artery: unspecified coronary artery Qualified Code(s): I21.3 - ST elevation (STEMI) myocardial infarction of unspecified site (13) Hepatic encephalopathy Priority: Secondary Status: Acute (14) Thrombocytopenia Priority: Secondary Status: Acute (15) Acute respiratory failure with hypoxia and hypercapnia Priority: Secondary Status: Acute Hospital course: Mr. Fang is a 57 year old male with past medical history of esophageal varices , CLL, [place], and type 2 Diabetes who presented to [facility] ED for RUQ pain, SOB, and mild chest tightness. Patient was found to have nonspecific gallbladder wall thickening on CT and opacities on chest CT suggestive of PNA, for which patient was admitted, started on Zosyn. Patient's admission was complicated by a rapid response call for unresponsiveness, patient had a palpable pulse, stable BP, and regular rhythm on telemetry. He was intubated and transferred to ICU, stat ECG suspicious for lateral STEMI due to mild ST elevations in lateral leads, patient was noted to have a troponin of .05. Patient's course was discussed with Cardiology: Due to patients thrombocytopenia, cirrhosis, known varices, and septic state, patient was conservatively managed with ASA, no catheterization. Serial troponins remained adynamic. Patient remained intubated and sedated in the ICU on broad-spectrum antibiotics, temp HD cath was inserted in setting of ELLIOT, patient extubated on 03/15, transferred to step-down unit on . ECG obtained 03/[address] elevation. Patient's case again discussed with patient's Blindstitch Lapel Padder Dr. Suazo as well and GI service. He is to follow- up with Cardiology in 1 week and continue conservative therapy with ASA and with GI in 1 week for evaluation of his chronic varices. Patient is stable for discharge today 03/19. - Time Spent with Patient Total time spent providing and/or coordinating discharge services: Greater than 30 minutes - Discharge Medications Home Medications: ALPRAZolam [Xanax 1 MG Tablet] 1 mg PO BID PRN 05/09/15 [History] Atorvastatin Calcium [Lipitor] 20 mg PO HS 05/09/15 [History] Metformin HCl [Glucophage] 1,000 mg PO BID 05/09/15 [History] Metoprolol [Lopressor] 75 mg PO BID 05/09/15 [History] Nitroglycerin [Nitrolingual] 4.9 gm TL AD PRN 05/09/15 [History] Oxygen 2 l NS HS 03/26/16 [History] Spironolactone [Aldactone] 100 mg PO DAILY 03/26/16 [History] OxyCODONE/APAP 10/325 [Percocet 10/325 MG] 1 tab PO Q6H PRN 07/30/16 [History] Esomeprazole Magnesium [Nexium] 40 mg PO DAILY 12/24/16 [History] Furosemide [Lasix] 40 mg PO DAILY 12/24/16 [History] Insulin Glargine,Hum.rec.anlog [Lantus Solostar] 50 unit SQ BID 12/24/16 [ History] Insulin Regular, Human [Novolin R] 20 unit SQ TIDWM 04/28/17 [History] Prochlorperazine Maleate [Compazine] 1 tab PO Q6HR PRN #30 tablet 05/07/17 [Rx] Gabapentin [Neurontin] 300 mg PO BID 07/15/17 [History] Levothyroxine [Synthroid] 88 mcg PO 0630 #30 tablet 11/23/17 [Rx] Pantoprazole Sodium [Protonix] 40 mg PO DAILY 03/09/18 [History] Sucralfate [Carafate] 1 gm PO TID 03/09/18 [History] Aspirin 162 mg PO DAILY tab.chew 03/19/18 [Rx] Allergies/Adverse Reactions: 3 Allergy/AdvReac Type Severity Reaction Status Date / Time naproxen Allergy Mild Hives Verified 03/09/18 09:41 rituximab Allergy Mild Hives Verified 03/09/18 09:41 JUAN RAMON Inhibitors AdvReac Mild NECK PAIN Verified 03/09/18 09:41 cefdinir AdvReac Mild Dizziness Verified 03/09/18 09:41 hydrocodone AdvReac Mild Vomiting Verified 03/09/18 09:41 levofloxacin AdvReac Mild Dizziness Verified 03/09/18 09:41 ramipril [From Altace] AdvReac Mild NECK PAIN Verified 03/09/18 09:41 tramadol AdvReac Mild Nausea Verified 03/09/18 09:41 doxycycline AdvReac Vomiting Verified 03/09/18 09:41 Date of admission: 03/09/18 17:04 Primary care physician: Pati Sosa Consults: 03/09/18 17:09 Consult to Gastroenterology [CONS] Routine Consulting Provider: Gastroenterology Tom Bean Reason for Consult: RUQ pain, elevated total bili 6.4 and cholelithiasis and ?gb wall thickening that could be liver disease Time Notified: 17:11 Call Completed: Yes 03/10/18 09:35 Consult to Nurse Navigator [CONS] Routine Comment: PNEUMONIA 03/11/18 03:48 Consult to Critical Care [CONS] Stat Consulting Provider: Pulm Crit Care & Sleep Tom Bean Reason for Consult: resp failure, hypoxia, pna Time Notified: 03:48 Call Completed: Yes 03/11/18 04:02 Consult to Cardiology [CONS] Stat Comment: Consulting Provider: Cardiology Anila Reason for Consult: evolving lat ischemia Time Notified: 04:03 Call Completed: Yes 03/11/18 07:36 Consult to Nephrology [CONS] Routine Consulting Provider: Kidney & HTN Spclst ESAU Reason for Consult: Hepatorenal syndrome Time Notified: 07:36 Call Completed: Yes 03/11/18 10:48 Consult to Interventional Radiology [CONS] Stat Consulting Provider: Radiology Interventional Cols Reason for Consult: Start dialysis. Need dialysis line placed. Time Notified: 10:49 Call Completed: Yes 03/17/18 11:00 Consult to Dialysis [CONS] ONCE 03/17/18 13:19 Consult to Occupational Therapy [CONS] Routine Comment: Evaluate, develop and implement POC Reason for Consult: Evaluate, develop and implement POC Does patient have active BEDREST order?: No Is patient medically & hemodynamically stable?: Yes Consult to Physical Therapy [CONS] Routine Comment: Evaluate, develop and implement POC Reason for Consult: Disposition planning. Therapy - weakness in bed. Does patient have active BEDREST order?: No Is patient medically & hemodynamically stable?: Yes Discharging clinician: Ghulam Randolph Anticipated date of discharge: 03/19/18 - Constitutional Vitals: Temp Pulse Resp BP Pulse Ox 98.4 F 83 17 118/60 96 03/19/18 16:09 03/19/18 16:09 03/19/18 16:09 03/19/18 16:09 03/19/18 16:09 General appearance: Present: cooperative, A&O X 3, answers questions appropriately - Head Head exam: Present: atraumatic, normal inspection - Eye Eye exam: Present: EOMI, normal appearance - Neck Neck exam general surgery: Present: supple. Absent: lymphadenopathy - Respiratory Respiratory exam: Present: decreased breath sounds. Absent: stridor, wheezes, tachypnea - Cardiovascular Cardiovascular exam: Present: RRR, +S1, +S2. Absent: JVD, systolic murmur - Extremities Exam Extremities exam: Present: warm. Absent: calf tenderness - Neurological Exam Neurological exam: Present: alert, oriented X3. Absent: facial droop, speech deficit - Psychiatric Psychiatric exam: Present: normal affect, normal mood. Absent: anxious, depressed - Skin Skin exam: Absent: cyanosis, diaphoretic - Patient Status Disposition: Home, Self-Care Condition: Fair Functional capacity at discharge: independent ambulation Overall status at discharge: patient is progressing back to baseline - Discharge Instructions Instructions: Chest Pain (DC), Acute Respiratory Distress Syndrome (DC), Pneumonia (DC) Follow Up With: Derick Ellis DO [Primary Care Provider] - 03/24/18 7:30 am Yousuf Suazo DO [Partnered Physician] - (Cardiology makes their own appts. If they do not call you within the next week, please call them. Make appt for 1- 2 weeks) Ni Masters MD [Partnered Physician] - (Please call to make appt in 1 week for your cirrhosis management) Additional Instructions: Please follow-up with your GI physician Dr. Masters in [address] Suazo your Blindstitch Lapel Padder in 1-2 weeks. Continue to take your 2 doses of 81mg ASA daily. - Diet and Activity Activity: increase activity as tolerated Diet: low salt diet - VTE Documentation of Mechanical Device: Intermittent pneumatic compression device <Vicenta Dawson - Last Filed: 03/19/18 17:27> Orders not resulted at time of discharge: Pending orders 03/19/18 13:35 Culture,Blood [BC] Routine 03/19/18 14:02 ECG 12 lead ECG [ECG] Stat 03/20/18 04:00 BMP [Basic Metabolic Panel] AM 0400 Complete Blood Count [HEME] AM 0400 03/21/18 04:00 BMP [Basic Metabolic Panel] AM 0400 Complete Blood Count [HEME] AM 0400 03/22/18 04:00 BMP [Basic Metabolic Panel] AM 0400 Complete Blood Count [HEME] AM 0400 03/23/18 04:00 BMP [Basic Metabolic Panel] AM 0400 Complete Blood Count [HEME] AM 0400 03/24/18 04:00 BMP [Basic Metabolic Panel] AM 0400 Complete Blood Count [HEME] AM 0400 Date of Encounter: 03/19/18 - Discharge Diagnosis (1) CLL (chronic lymphocytic leukemia) Status: Chronic (2) Type 2 diabetes mellitus Status: Chronic Qualifiers: 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 Diabetes mellitus complication status: with hyperglycemia Qualified Code(s): E11.65 - Type 2 diabetes mellitus with hyperglycemia; Z79.4 - USP (current) use of insulin (3) Cirrhosis Status: Acute Qualifiers: Hepatic cirrhosis type: other cirrhosis Qualified Code(s): K74.69 - Other cirrhosis of liver (4) Lumbar degenerative disc disease Status: Acute (5) Esophageal varices without bleeding Status: Acute Qualifiers: Esophageal varices type: secondary Qualified Code(s): I85.10 - Secondary esophageal varices without bleeding (6) Hypothyroidism Status: Acute Qualifiers: Hypothyroidism type: unspecified Qualified Code(s): E03.9 - Hypothyroidism , unspecified (7) Cholelithiasis Status: Acute Qualifiers: Cholelithiasis location: other site Biliary obstruction: without biliary obstruction Qualified Code(s): K80.80 - Other cholelithiasis without obstruction (8) Chest pain, rule out acute myocardial infarction Status: Acute (9) Pneumonia Status: Acute Qualifiers: Pneumonia type: due to unspecified organism Laterality: bilateral Lung location: unspecified part of lung Qualified Code(s): J18.9 - Pneumonia, unspecified organism (10) Abdominal pain Status: Acute Qualifiers: Abdominal location: right upper quadrant Qualified Code(s): R10.11 - Right upper quadrant pain (11) ELLIOT (acute kidney injury) Status: Acute (12) STEMI (ST elevation myocardial infarction) Status: Ruled-out Qualifiers: Involved coronary artery: unspecified coronary artery Qualified Code(s): I21.3 - ST elevation (STEMI) myocardial infarction of unspecified site (13) Hepatic encephalopathy Status: Acute (14) Thrombocytopenia Status: Acute (15) Acute respiratory failure with hypoxia and hypercapnia Status: Acute Hospital course: Mr. Fang is a 57 year old male - Time Spent with Patient Total time spent providing and/or coordinating discharge services: Date of admission: 03/09/18 17:04 Primary care physician: Pati Sosa Consults: 03/09/18 17:09 Consult to Gastroenterology [CONS] Routine Consulting Provider: Gastroenterology Tom Bean Reason for Consult: RUQ pain, elevated total bili 6.4 and cholelithiasis and ?gb wall thickening that could be liver disease Time Notified: 17:11 Call Completed: Yes 03/10/18 09:35 Consult to Nurse Navigator [CONS] Routine Comment: PNEUMONIA 03/11/18 03:48 Consult to Critical Care [CONS] Stat Consulting Provider: Pulm Crit Care & Sleep Anila Reason for Consult: resp failure, hypoxia, pna Time Notified: 03:48 Call Completed: Yes 03/11/18 04:02 Consult to Cardiology [CONS] Stat Comment: Consulting Provider: Cardiology Anila Reason for Consult: evolving lat ischemia Time Notified: 04:03 Call Completed: Yes 03/11/18 07:36 Consult to Nephrology [CONS] Routine Consulting Provider: Kidney & HTN Spclst ESAU Reason for Consult: Hepatorenal syndrome Time Notified: 07:36 Call Completed: Yes 03/11/18 10:48 Consult to Interventional Radiology [CONS] Stat Consulting Provider: Radiology Interventional Cols Reason for Consult: Start dialysis. Need dialysis line placed. Time Notified: 10:49 Call Completed: Yes 03/17/18 11:00 Consult to Dialysis [CONS] ONCE 03/17/18 13:19 Consult to Occupational Therapy [CONS] Routine Comment: Evaluate, develop and implement POC Reason for Consult: Evaluate, develop and implement POC Does patient have active BEDREST order?: No Is patient medically & hemodynamically stable?: Yes Consult to Physical Therapy [CONS] Routine Comment: Evaluate, develop and implement POC Reason for Consult: Disposition planning. Therapy - weakness in bed. Does patient have active BEDREST order?: No Is patient medically & hemodynamically stable?: Yes - Constitutional Vitals: Temp Pulse Resp BP Pulse Ox 98.4 F 83 17 118/60 96 03/19/18 16:09 03/19/18 16:09 03/19/18 16:09 03/19/18 16:09 03/19/18 16:09 - Attending Attestation I examined this patient and my medical decision-making was reviewed with the Resident Physician. I agree with the documented findings, disposition and treatment plan as described except to the extent set forth below.
== END 2018-03-19 18:21 | disposition home or self-care (01) | DRG 871 ==
LOC: 3BNU 09:30 → EMEROO 09:30 → OBSVTOIN 17:04 → SUATTDRO 17:04 → 3BNU 17:34 → ICNU 03-11 03:34 → 2NENU 03-16 10:09
PROVIDERS: ADMIT Nurse Practitioner Family; ATTEND Student in an Organized Health Care Education/Training Program

== ENCOUNTER 2018-05-01 14:20 | Inpatient (IN) ==
--- NOTE | 2018-05-01 14:44 | Emergency Department Note ---
Disposition Clinical Impression: Pleural effusion, Shortness of breath Disposition: Admitted As Inpatient Condition: Fair Time of Disposition: 16:23 General Adult HPI - General Chief complaint: ED Shortness of Breath/Dyspnea Stated complaint: JEANNE Time Seen by Provider: 05/01/18 14:25 Source: patient, family Mode of arrival: wheelchair Limitations: no limitations Nursing Notes Reviewed: Yes Vital Signs Reviewed: Yes - History of Present Illness HPI Narrative: 58-year-old male with significant past medical history of CLL, type 2 diabetes, liver cirrhosis presented to the emergency Department chief complaint of difficulty in breathing. Patient denies any fevers, chest pain or dizziness at home. Has not taken any medications at home for this. Patient states that this been progressing since last evening. Patient states these symptoms are similar to when he needed to get fluid taken off of his lungs. Patient was last admitted mid February for pneumonia and pleural effusion. At that time patient had respiratory distress and needed intubation and admission to the ICU. Pain Scale: 8 - Related Data Home Medications Medication Instructions Recorded Confirmed ALPRAZolam [Xanax 1 MG Tablet] 1 mg PO BID PRN 05/09/15 05/01/18 Atorvastatin Calcium [Lipitor] 20 mg PO HS 05/09/15 05/01/18 Metformin HCl [Glucophage] 1,000 mg PO BID 05/09/15 05/01/18 Oxygen 3 l NS HS 03/26/16 05/01/18 Spironolactone [Aldactone] 100 mg PO DAILY 03/26/16 05/01/18 OxyCODONE/APAP 10/325 [Percocet 1 tab PO Q6H PRN 07/30/16 05/01/18 10/325 MG] Furosemide [Lasix] 40 mg PO DAILY 12/24/16 05/01/18 Insulin Glargine,Hum.rec.anlog 50 unit SQ BID 12/24/16 05/01/18 [Lantus Solostar] Gabapentin [Neurontin] 300 mg PO BID 07/15/17 05/01/18 Sucralfate [Carafate] 1 gm PO TID 03/09/18 05/01/18 Aspirin 81 mg PO DAILY 03/26/18 05/01/18 Lactulose [Kristalose] 20 gm PO TID 03/26/18 05/01/18 Pantoprazole Sodium [Protonix] 40 mg PO DAILY 03/26/18 05/01/18 Metoprolol [Lopressor] 75 mg PO BID 05/01/18 05/01/18 Nitroglycerin [Nitromist] 4.1 gm TL AD PRN 05/01/18 05/01/18 Previous Rx's Medication Instructions Recorded Prochlorperazine Maleate 1 tab PO Q6HR PRN #30 tablet 05/07/17 [Compazine] Levothyroxine [Synthroid] 88 mcg PO 0630 #30 tablet 11/23/17 Insulin Regular, Human [Novolin R] 20 unit SQ TIDWM #18 vial 03/19/18 Allergies Allergy/AdvReac Type Severity Reaction Status Date / Time naproxen Allergy Mild Hives Verified 05/01/18 14:24 rituximab Allergy Mild Hives Verified 05/01/18 14:24 JUAN RAMON Inhibitors AdvReac Mild NECK PAIN Verified 05/01/18 14:24 cefdinir AdvReac Mild Dizziness Verified 05/01/18 14:24 hydrocodone AdvReac Mild Vomiting Verified 05/01/18 14:24 levofloxacin AdvReac Mild Dizziness Verified 05/01/18 14:24 ramipril [From Altace] AdvReac Mild NECK PAIN Verified 05/01/18 14:24 tramadol AdvReac Mild Nausea Verified 05/01/18 14:24 doxycycline AdvReac Vomiting Verified 05/01/18 14:24 All systems ED: reviewed and negative except as stated. Constitutional: Denies: fever, chills Eyes: Reports: as per HPI ENT ED: Reports: as per HPI Cardiovascular: Denies: chest pain, palpitations Respiratory: Reports: dyspnea. Denies: wheezes, hemoptysis, stridor Gastrointestinal: Denies: abdominal pain, nausea, vomiting Genitourinary: Reports: as per HPI Musculoskeletal: Reports: as per HPI Integumentary: Reports: as per HPI Neurological: Denies: weakness, numbness, paresthesias Psychiatric: Reports: as per HPI Endocrine: Reports: as per HPI Hematological/Lymphatic: Reports: as per HPI Allergic/Immunologic: Reports: as per HPI Past Medical History - Past Medical History Attestation: Yes The following information was validated with the patient. Medical history: Reports: cancer, CHF, COPD, diabetes, GERD, hyperlipidemia, hypertension, kidney stones, myocardial infarction Surgical history: Reports: LE stent(s) Psychiatric history: Reports: depression - Social History Smoking Status: Unknown if ever smoked Smokeless Tobacco Status: No Alcohol use: Reports: none Drug use: Reports: none Physical Exam - General Limitations: no limitations General appearance: alert, in no apparent distress - Head Head exam: atraumatic, normocephalic, normal inspection - Eye Eye exam: Present: normal appearance. Absent: scleral icterus, conjunctival injection - ENT ENT exam: normal exam, mucous membranes moist - Neck Neck exam: Present: normal inspection, full ROM. Absent: tenderness, meningismus - Chest Chest inspection: Present: normal inspection, symmetric chest wall rise. Absent : tenderness, rash - Respiratory Respiratory exam: Present: other (Rhonchi noted on the right upper and middle lobes. decreased breath sounds on the left) - Cardiovascular Cardiovascular exam: Present: regular rate, normal rhythm, normal heart sounds - Abdominal Exam Abdominal exam: Present: soft, Non-Tender. Absent: distention, guarding, rebound - Extremities Exam Extremities exam: Present: normal inspection, full ROM - Neurological Exam Neurological exam: Present: alert, oriented X3 - Psychiatric Psychiatric exam: Present: normal affect, normal mood - Skin Skin exam: Present: warm, intact Course Course Narrative: 58-year-old male presenting with shortness of breath. Patient has history of pleural effusions and pneumonia within the past 3 months. Patient afebrile. Vital signs stable in the room. Was hypoxic upon arrival. Patient is alert and oriented 3 in the room. We will obtain basic laboratory analysis along with chest x-ray, troponin and EKG. Disposition most likely admission but pending results. Patient agrees with this plan. - Reevaluation(s) Reevaluation #1: Patient's laboratory analysis shows chronic anemia. Otherwise unchanged from baseline. Chest x-ray does show complete opacification of the left lung. I spoke with the interventional radiologist on-call Dr. Plummer who agrees to assess the patient tomorrow morning for thoracentesis. He would like us to add coagulation studies. Patient is alert and oriented 3 in the room with stable vital signs. We will plan to admit the patient for shortness of breath and thoracentesis tomorrow. I spoke with the hospitalist on-call Dr. Hanson who agrees to accept the patient at this time. Vital Signs Temperature 98.0 F 05/01/18 14:21 Pulse Rate 91 05/01/18 14:21 Respiratory Rate 20 05/01/18 14:21 Blood Pressure 132/76 05/01/18 14:21 O2 Sat by Pulse Oximetry 88 05/01/18 14:21 Temperature 98.0 F 05/01/18 14:21 Pulse Rate 91 05/01/18 14:21 Respiratory Rate 20 05/01/18 14:21 Blood Pressure 132/76 05/01/18 14:21 O2 Sat by Pulse Oximetry 98 05/01/18 14:43 Oxygen Delivery Oxygen Delivery Nasal Cannula Medical Decision Making - Lab Data Result diagrams: 05/01/18 15:11 05/01/18 15:11 Lab Results 05/01/18 05/01/18 05/01/18 Range/Units 15:11 15:11 15:11 WBC 3.3 L (4.3-11.1) K/mcL RBC 2.80 L (4.19-5.50) M/mcL Hgb 8.3 L (12.9-16.9) g/dL Hct 27.2 L (37.5-50.1) % MCV 97.1 (83.0-100.0) fL MCH 29.6 (28.0-33.3) pg MCHC 30.5 L (31.6-35.5) g/dL RDW 16.2 H (11.5-14.5) % Plt Count 60 L (140-400) K/mcL MPV 9.4 (9.4-12.4) fL Immature Gran % 2.1 (0-4) % Seg Neutrophils % 59.6 % Lymphocytes % 24.5 % Monocytes % 11.0 % Eosinophils % 2.5 % Basophils % 0.3 % Neutrophils # 2.0 (1.6-8.9) K/mcL Lymphocytes # 0.8 (0.6-4.6) K/mcL Monocytes # 0.4 (0.0-1.3) K/mcL Eosinophils # 0.1 (0.0-0.6) K/mcL Basophils # 0.0 (0.0-0.2) K/mcL Immature Plt Fraction 4.0 (1.1-6.1) % Sodium 142 (136-145) mEq/L Potassium 4.3 (3.5-5.1) mEq/L Chloride 93 L (98-107) mEq/L Carbon Dioxide 41 H* (23-29) mEq/L BUN 17 (6-20) mg/dL Creatinine 0.97 (0.70-1.30) mg/dL Est GFR ( Amer) > 60 (> 60) Est GFR (Non-Af Amer) > 60 (> 60) BUN/Creatinine Ratio 18 (6-26) Glucose 194 H (70-105) mg/dL Calculated Osmolality 301 H (280-300) Lactic Acid 3.0 H (0.5-2.2) mmol/L Calcium 9.7 (8.6-10.3) mg/dL Troponin I < 0.03 (< 0.04) ng/mL B-Natriuretic Peptide (Less than 100) pg/mL 05/01/18 Range/Units 15:11 WBC (4.3-11.1) K/mcL RBC (4.19-5.50) M/mcL Hgb (12.9-16.9) g/dL Hct (37.5-50.1) % MCV (83.0-100.0) fL MCH (28.0-33.3) pg MCHC (31.6-35.5) g/dL RDW (11.5-14.5) % Plt Count (140-400) K/mcL MPV (9.4-12.4) fL Immature Gran % (0-4) % Seg Neutrophils % % Lymphocytes % % Monocytes % % Eosinophils % % Basophils % % Neutrophils # (1.6-8.9) K/mcL Lymphocytes # (0.6-4.6) K/mcL Monocytes # (0.0-1.3) K/mcL Eosinophils # (0.0-0.6) K/mcL Basophils # (0.0-0.2) K/mcL Immature Plt Fraction (1.1-6.1) % Sodium (136-145) mEq/L Potassium (3.5-5.1) mEq/L Chloride (98-107) mEq/L Carbon Dioxide (23-29) mEq/L BUN (6-20) mg/dL Creatinine (0.70-1.30) mg/dL Est GFR ( Amer) (> 60) Est GFR (Non-Af Amer) (> 60) BUN/Creatinine Ratio (6-26) Glucose (70-105) mg/dL Calculated Osmolality (280-300) Lactic Acid (0.5-2.2) mmol/L Calcium (8.6-10.3) mg/dL Troponin I (< 0.04) ng/mL B-Natriuretic Peptide 189 H (Less than 100) pg/mL - EKG Data EKG #1 EKG attestation: Yes I reviewed and interpreted this EKG. EKG results narrative: Sinus rhythm. 95 bpm. GA interval 164, QRS 105, QTC 347. No signs of acute ST segment elevation or ischemia.
[2018-05-01 15:39] LABS: Basophils % 0.3 %
[2018-05-01 15:41] LABS: Eosinophils # 0.1 K/mcL (0.0-0.6); Eosinophils % 2.5 %; Hematocrit 27.2 % (37.5-50.1); Hemoglobin 8.3 g/dL (12.9-16.9); Immature Granulocytes % 2.1 % (0-4); Lymphocytes # 0.8 K/mcL (0.6-4.6); Lymphocytes % 24.5 %; Mean Corpuscular HGB Conc 30.5 g/dL (31.6-35.5); Mean Corpuscular Hemoglobin 29.6 pg (28.0-33.3); Mean Corpuscular Volume 97.1 fL (83.0-100.0); Mean Platelet Volume 9.4 fL (9.4-12.4); Monocytes # 0.4 K/mcL (0.0-1.3); Red Cell Distribution Width 16.2 % (11.5-14.5); Segmented Neutrophils % 59.6 %
[2018-05-01 15:42] LABS: Platelet Count 60 K/mcL (140-400)
[2018-05-01 15:56] LABS: Troponin I < 0.03 ng/mL (< 0.04)
[2018-05-01 15:58] LABS: BUN/Creatinine Ratio 18 (6-26); Blood Urea Nitrogen 17 mg/dL (6-20); Calcium 9.7 mg/dL (8.6-10.3); Carbon Dioxide 41 mEq/L (23-29); Chloride 93 mEq/L (98-107); Glucose 194 mg/dL (70-105); Osmolality,Calculated 301 (280-300); Potassium 4.3 mEq/L (3.5-5.1); Sodium 142 mEq/L (136-145); eGFR For Non-African Americans > 60 (> 60)
--- NOTE | 2018-05-01 16:18 | Emergency Department Note ---
Disposition Clinical Impression: Pleural effusion Disposition: Admitted As Inpatient Referrals: NONE,PCP [Non-Partnered Physician] - Forms: ED Satisfaction Letter General Adult HPI - General Chief complaint: ED Shortness of Breath/Dyspnea Stated complaint: JEANNE Time Seen by Provider: 05/01/18 14:25 Source: patient, family Mode of arrival: wheelchair Limitations: no limitations - History of Present Illness Pain Scale: 8 - Related Data Home Medications Medication Instructions Recorded Confirmed ALPRAZolam [Xanax 1 MG Tablet] 1 mg PO BID PRN 05/09/15 05/01/18 Atorvastatin Calcium [Lipitor] 20 mg PO HS 05/09/15 05/01/18 Metformin HCl [Glucophage] 1,000 mg PO BID 05/09/15 05/01/18 Oxygen 3 l NS HS 03/26/16 05/01/18 Spironolactone [Aldactone] 100 mg PO DAILY 03/26/16 05/01/18 OxyCODONE/APAP 10/325 [Percocet 1 tab PO Q6H PRN 07/30/16 05/01/18 10/325 MG] Furosemide [Lasix] 40 mg PO DAILY 12/24/16 05/01/18 Insulin Glargine,Hum.rec.anlog 50 unit SQ BID 12/24/16 05/01/18 [Lantus Solostar] Gabapentin [Neurontin] 300 mg PO BID 07/15/17 05/01/18 Sucralfate [Carafate] 1 gm PO TID 03/09/18 05/01/18 Aspirin 81 mg PO DAILY 03/26/18 05/01/18 Lactulose [Kristalose] 20 gm PO TID 03/26/18 05/01/18 Pantoprazole Sodium [Protonix] 40 mg PO DAILY 03/26/18 05/01/18 Metoprolol [Lopressor] 75 mg PO BID 05/01/18 05/01/18 Nitroglycerin [Nitromist] 4.1 gm TL AD PRN 05/01/18 05/01/18 Previous Rx's Medication Instructions Recorded Prochlorperazine Maleate 1 tab PO Q6HR PRN #30 tablet 05/07/17 [Compazine] Levothyroxine [Synthroid] 88 mcg PO 0630 #30 tablet 11/23/17 Insulin Regular, Human [Novolin R] 20 unit SQ TIDWM #18 vial 03/19/18 Allergies Allergy/AdvReac Type Severity Reaction Status Date / Time naproxen Allergy Mild Hives Verified 05/01/18 14:24 rituximab Allergy Mild Hives Verified 05/01/18 14:24 JUAN RAMON Inhibitors AdvReac Mild NECK PAIN Verified 05/01/18 14:24 cefdinir AdvReac Mild Dizziness Verified 05/01/18 14:24 hydrocodone AdvReac Mild Vomiting Verified 05/01/18 14:24 levofloxacin AdvReac Mild Dizziness Verified 05/01/18 14:24 ramipril [From Altace] AdvReac Mild NECK PAIN Verified 05/01/18 14:24 tramadol AdvReac Mild Nausea Verified 05/01/18 14:24 doxycycline AdvReac Vomiting Verified 05/01/18 14:24 Constitutional: Denies: fever, chills Eyes: Reports: as per HPI ENT ED: Reports: as per HPI Cardiovascular: Denies: chest pain, palpitations Respiratory: Reports: dyspnea. Denies: wheezes, hemoptysis, stridor Gastrointestinal: Denies: abdominal pain, nausea, vomiting Genitourinary: Reports: as per HPI Musculoskeletal: Reports: as per HPI Integumentary: Reports: as per HPI Neurological: Denies: weakness, numbness, paresthesias Psychiatric: Reports: as per HPI Endocrine: Reports: as per HPI Hematological/Lymphatic: Reports: as per HPI Allergic/Immunologic: Reports: as per HPI Past Medical History - Past Medical History Medical history: Reports: cancer, CHF, COPD, diabetes, GERD, hyperlipidemia, hypertension, kidney stones, myocardial infarction Surgical history: Reports: LE stent(s) Psychiatric history: Reports: depression - Social History Smoking Status: Unknown if ever smoked Smokeless Tobacco Status: No Alcohol use: Reports: none Drug use: Reports: none Physical Exam - General Limitations: no limitations General appearance: alert, in no apparent distress Course Vital Signs Temperature 98.0 F 05/01/18 14:21 Pulse Rate 91 05/01/18 14:21 Respiratory Rate 20 05/01/18 14:21 Blood Pressure 132/76 05/01/18 14:21 O2 Sat by Pulse Oximetry 88 05/01/18 14:21 Temperature 98.0 F 05/01/18 14:21 Pulse Rate 91 05/01/18 14:21 Respiratory Rate 20 05/01/18 14:21 Blood Pressure 132/76 05/01/18 14:21 O2 Sat by Pulse Oximetry 98 05/01/18 14:43 Oxygen Delivery Oxygen Delivery Nasal Cannula Medical Decision Making - Lab Data Result diagrams: 05/01/18 15:11 05/01/18 15:11 Lab Results 05/01/18 05/01/18 05/01/18 Range/Units 15:11 15:11 15:11 WBC 3.3 L (4.3-11.1) K/mcL RBC 2.80 L (4.19-5.50) M/mcL Hgb 8.3 L (12.9-16.9) g/dL Hct 27.2 L (37.5-50.1) % MCV 97.1 (83.0-100.0) fL MCH 29.6 (28.0-33.3) pg MCHC 30.5 L (31.6-35.5) g/dL RDW 16.2 H (11.5-14.5) % Plt Count 60 L (140-400) K/mcL MPV 9.4 (9.4-12.4) fL Immature Gran % 2.1 (0-4) % Seg Neutrophils % 59.6 % Lymphocytes % 24.5 % Monocytes % 11.0 % Eosinophils % 2.5 % Basophils % 0.3 % Neutrophils # 2.0 (1.6-8.9) K/mcL Lymphocytes # 0.8 (0.6-4.6) K/mcL Monocytes # 0.4 (0.0-1.3) K/mcL Eosinophils # 0.1 (0.0-0.6) K/mcL Basophils # 0.0 (0.0-0.2) K/mcL Immature Plt Fraction 4.0 (1.1-6.1) % Sodium 142 (136-145) mEq/L Potassium 4.3 (3.5-5.1) mEq/L Chloride 93 L (98-107) mEq/L Carbon Dioxide 41 H* (23-29) mEq/L BUN 17 (6-20) mg/dL Creatinine 0.97 (0.70-1.30) mg/dL Est GFR ( Amer) > 60 (> 60) Est GFR (Non-Af Amer) > 60 (> 60) BUN/Creatinine Ratio 18 (6-26) Glucose 194 H (70-105) mg/dL Calculated Osmolality 301 H (280-300) Lactic Acid 3.0 H (0.5-2.2) mmol/L Calcium 9.7 (8.6-10.3) mg/dL Troponin I < 0.03 (< 0.04) ng/mL B-Natriuretic Peptide (Less than 100) pg/mL 05/01/18 Range/Units 15:11 WBC (4.3-11.1) K/mcL RBC (4.19-5.50) M/mcL Hgb (12.9-16.9) g/dL Hct (37.5-50.1) % MCV (83.0-100.0) fL MCH (28.0-33.3) pg MCHC (31.6-35.5) g/dL RDW (11.5-14.5) % Plt Count (140-400) K/mcL MPV (9.4-12.4) fL Immature Gran % (0-4) % Seg Neutrophils % % Lymphocytes % % Monocytes % % Eosinophils % % Basophils % % Neutrophils # (1.6-8.9) K/mcL Lymphocytes # (0.6-4.6) K/mcL Monocytes # (0.0-1.3) K/mcL Eosinophils # (0.0-0.6) K/mcL Basophils # (0.0-0.2) K/mcL Immature Plt Fraction (1.1-6.1) % Sodium (136-145) mEq/L Potassium (3.5-5.1) mEq/L Chloride (98-107) mEq/L Carbon Dioxide (23-29) mEq/L BUN (6-20) mg/dL Creatinine (0.70-1.30) mg/dL Est GFR ( Amer) (> 60) Est GFR (Non-Af Amer) (> 60) BUN/Creatinine Ratio (6-26) Glucose (70-105) mg/dL Calculated Osmolality (280-300) Lactic Acid (0.5-2.2) mmol/L Calcium (8.6-10.3) mg/dL Troponin I (< 0.04) ng/mL B-Natriuretic Peptide 189 H (Less than 100) pg/mL Attestation Statement - Attestation Attestation: I examined this patient and my medical decision-making was reviewed with the Resident Physician. I agree with the documented findings, disposition and treatment plan as described except to the extent set forth below. 58 year old male prsentes to the ED with complaints of dyspnea and lung pain and state that he wears 3LNC at home chronically and feels as though he may require another thoracentesis. Dipika has needed them in the past and it appears that he does have a hemithorax opacification on left and was hypoixc upon arrival to 88% in triage. Patient has an elevated lactic acid of 3 but no febrile without an elevated WBC, unlikely pnuemoina. We will continnue with therapy and have consutled IR for thoracocentesis in the AM per Dr. Mark. Dipika admitted ot medicne
[2018-05-01 16:23] LABS: INR 1.1; Prothrombin Time 12.7 Seconds (9.4-12.1)
[2018-05-01 16:26] LABS: Activated Partial Thrombo Time 36.8 Seconds (26.0-36.0)
[2018-05-01] MEDS ORDERED: *HR* OxyCODONE/APAP 10/325 TABLET PO PRN (16:34)
[2018-05-01] MEDS ORDERED: Nitroglycerin Spray 4.9 GM BOTTLE TL PRN (16:34)
[2018-05-01] MEDS ORDERED: D5% in Water 1,000 ML IVC PRN (16:39)
[2018-05-01] MEDS ORDERED: *HR* Dextrose 50 % in Water (Syg) 50 ML SYRINGE IVP PRN (16:39)
[2018-05-01] MEDS ORDERED: Dextrose Gel 15 GM/37.5 ML TUBE PO PRN ×2 (16:39)
[2018-05-01] MEDS ORDERED: traMADol 50 MG TABLET PO PRN (17:27)
[2018-05-01] MEDS ORDERED: *HR* OxyCODONE/APAP 5/325 TABLET PO PRN (17:27)
[2018-05-01] MEDS ORDERED: Naloxone 0.4 MG/ML INJ IVP PRN (17:28)
[2018-05-01] MEDS ORDERED: methylPREDNISolone 125 MG/2 ML VIAL IM ONE (17:30)
--- NOTE | 2018-05-01 17:41 | Internal Med History&Physical ---
<Derick Pollard - Last Filed: 05/01/18 18:41> Date of Encounter: 05/01/18 Time of Encounter: 16:30 Internal Medicine - H&P: HPI Chief complaint: SOB/Dyspnea Admitted From: Emergency Dept Plans for Post Hospital Care: Home History of present illness: Mr. Fang is a 58 year old male w/PMH of CLL, CHF, COPD, diabetes, GERD, HLD, HTN, kidney stones, previous MS, and chronic cirrhosis of the liver presents from the ED with chief complaint of shortness of breath and dyspnea for the past 3 days which has become worse today. Patient states he was recently admitted for similar symptoms in late March and required intubation due to pleural effusion and pneumonia. Reports symptoms are similar to that time. Reports home O2 use and that he is supposed to use BiPAP nightly but does not. Previous smoker of 1.5-2 packs per day and reports quitting in 2005. Patient reports SOB/dyspnea worse with exertion. No real alleviating factors. Reports increase in abdominal girth corresponding to increase and SOB. Patient reports he feels better regarding previous pneumonia and denies fever, chills, nausea, vomiting, chest pain, changes in vision, headache, unusual bleeding, cough, abdominal pain, diarrhea, constipation, dizziness, lightheadedness, numbness, tingling, pre-syncope, or syncope. Past Med Surg Social Fam HX - Past Medical History Source: patient, old records reviewed, obtained from family Medical history: cancer (CLL), cirrhosis, CHF, COPD, diabetes, GERD, hyperlipidemia, hypertension, kidney stones, myocardial infarction Additional medical history: morbid obesity with BMI of 45-49 adult. history of colon polyps. stomach polyp removed. esophageal varicies banded. lymphatic leukemia Psychiatric history: depression - Past Surgical History Surgical History: LE stent(s) Additional surgical history: Hernia repair. Kidney stones. esophageal varicies. stomach polyp removed and clamp placed - Social History Smoking Status: Former smoker Packs per day: 1.5 - 2 PPD: Reports quitting in 2005 Smokeless Tobacco Status: No Alcohol use: none Drug use: none Current living situation: Home, With Family Activity Level: Independent ambulation Recent Out of Country Travel Within the Last 8 Weeks: No Exposure or Possible Exposure to Illness During Travel: No - Family History Mother Race: Family Member Ethnicity: Non- Living Status: Age at : 51 Cause of : COPD Hx Family Respiratory Disorders: Yes (COPD) Father Race: Family Member Ethnicity: Non- Living Status: Age at : 68 Cause of : Small cell lung cancer Hx Family Cancer: Yes (Small cell lung & Throat) Brother Race: Family Member Ethnicity: Non- Living Status: Age at : 42 Cause of : Suicide Sister Race: Family Member Ethnicity: Non- Living Status: Age at : 63 Cause of : COPD Hx Family Respiratory Disorders: Yes (COPD) Internal Medicine - H&P: Meds ALPRAZolam [Xanax 1 MG Tablet] 1 mg PO BID PRN 05/09/15 [History] Atorvastatin Calcium [Lipitor] 20 mg PO HS 05/09/15 [History] Metformin HCl [Glucophage] 1,000 mg PO BID 05/09/15 [History] Oxygen 3 l NS HS 03/26/16 [History] Spironolactone [Aldactone] 100 mg PO DAILY 03/26/16 [History] OxyCODONE/APAP 10/325 [Percocet 10/325 MG] 1 tab PO Q6H PRN 07/30/16 [History] Furosemide [Lasix] 40 mg PO DAILY 12/24/16 [History] Insulin Glargine,Hum.rec.anlog [Lantus Solostar] 50 unit SQ BID 12/24/16 [ History] Prochlorperazine Maleate [Compazine] 1 tab PO Q6HR PRN #30 tablet 05/07/17 [Rx] Gabapentin [Neurontin] 300 mg PO BID 07/15/17 [History] Levothyroxine [Synthroid] 88 mcg PO 0630 #30 tablet 11/23/17 [Rx] Sucralfate [Carafate] 1 gm PO TID 03/09/18 [History] Insulin Regular, Human [Novolin R] 20 unit SQ TIDWM #18 vial 03/19/18 [Rx] Aspirin 81 mg PO DAILY 03/26/18 [History] Lactulose [Kristalose] 20 gm PO TID 03/26/18 [History] Pantoprazole Sodium [Protonix] 40 mg PO DAILY 03/26/18 [History] Metoprolol [Lopressor] 75 mg PO BID 05/01/18 [History] Nitroglycerin [Nitromist] 4.1 gm TL AD PRN 05/01/18 [History] 3 Allergy/AdvReac Type Severity Reaction Status Date / Time naproxen Allergy Mild Hives Verified 05/01/18 14:24 rituximab Allergy Mild Hives Verified 05/01/18 14:24 JUAN RAMON Inhibitors AdvReac Mild NECK PAIN Verified 05/01/18 14:24 cefdinir AdvReac Mild Dizziness Verified 05/01/18 14:24 hydrocodone AdvReac Mild Vomiting Verified 05/01/18 14:24 levofloxacin AdvReac Mild Dizziness Verified 05/01/18 14:24 ramipril [From Altace] AdvReac Mild NECK PAIN Verified 05/01/18 14:24 tramadol AdvReac Mild Nausea Verified 05/01/18 14:24 doxycycline AdvReac Vomiting Verified 05/01/18 14:24 All Systems PM: A 10-system review of systems was performed and is negative for pertinent findings except as documented above in the HPI. - Constitutional Constitutional: as per HPI, fatigue, weakness, no chills, no fever(s), no night sweats - EENT Eyes: no change in vision, no discharge, no pain, no photophobia Ears: no ear discharge, no ear pain, no tinnitus Nose, mouth and throat: no dysphagia, no nasal discharge, no neck pain, no sore throat - Breasts Breasts: as per HPI - Cardiovascular Cardiovascular ROS IM: dyspnea, dyspnea on exertion, edema, no chest pain, no diaphoresis, no lightheadedness, no palpitations, no syncope - Respiratory Respiratory: as per HPI, dyspnea, dyspnea on exertion, no cough, no wheezing, no excessive phlegm production - Gastrointestinal Gastrointestinal: no abdominal pain, no diarrhea, no hematemesis, no hematochezia, no melena, no nausea, no vomiting - Genitourinary Genitourinary ROS male: as per HPI - Musculoskeletal Musculoskeletal ROS IM: no numbness, no tingling - Integumentary Integumentary IM: no rash, no unusual bruising - Neurological Neurological ROS: as per HPI, weakness, no confusion, no convulsions, no focal weakness, no numbness, no tingling, no tremor(s) - Psychiatric Psychiatric: as per HPI, depression - Endocrine Endocrine IM: as per HPI - Hematologic/Lymphatic Hematologic/Lymphatic: no easy bruising - Allergic/Immunologic Allergic/Immunologic: as per HPI - Constitutional Vitals: Temp Pulse Resp BP Pulse Ox 98.3 F 99 18 130/75 98 05/01/18 17:29 05/01/18 17:29 05/01/18 17:29 05/01/18 17:29 05/01/18 17:29 General appearance: Present: cooperative, mild distress (SOB/Dyspnea), A&O X 3, morbidly obese, pleasant, answers questions appropriately - Head Head exam: Present: atraumatic, normocephalic - Eye Eye exam: Present: PERRL, conjuntiva pink, sclera anicteric Pupils: Present: PERRL - ENT ENT exam: Present: normal exam - Neck Neck exam general surgery: Present: normal inspection, supple, trachea midline. Absent: lymphadenopathy - Respiratory Respiratory exam: Present: accessory muscle use, decreased breath sounds. Absent: rales, rhonchi, wheezes - Cardiovascular Cardiovascular exam: Present: RRR, +S1, +S2. Absent: diastolic murmur, gallop, rubs, systolic murmur - GI/Abdominal GI/Abdominal exam: Present: normal bowel sounds, soft, no peritoneal signs. Absent: distended, tenderness - Rectal Rectal exam: Present: deferred - Additional comments: exam deferred. - Extremities Exam Extremities exam: Present: pedal edema, warm, radial pulses palpable and symmetrical. Absent: calf tenderness, cyanotic - Back Exam Back exam: Present: normal inspection - Neurological Exam Neurological exam: Present: CN II-XII intact, oriented X3, no focal deficits. Absent: pronater drift, facial droop, speech deficit - Psychiatric Psychiatric exam: Present: normal affect, normal mood - Skin Skin exam: Present: dry, intact Internal Med - H&P Results - Labs CBC & Chem 7: 05/01/18 15:11 05/01/18 15:11 - Diagnostic Studies Chest x-ray Additional comments: Impressions Chest X-Ray 05/01/18 14:38 IMPRESSION: 1. Complete opacification of the left hemithorax. 2. Small right pleural effusion. D/ / 05/01/2018 15:24:47 Monica Ny MD / juan Interpreting Provider: Monica Ny MD - Assessment and plan (1) Pleural effusion Current Visit: Yes Status: Acute Assessment and plan: Acute on chronic bilateral pleural effusions, left worse than right. CXR shows complete opacification of the left hemithorax, worsened since 04/21/18. Hx of COPD and CHF. The right lung demonstrates a small pleural effusion. No pneumothorax. Pt. reports worsening SOB/dyspnea over the past three days and since being discharged in late March from [facility] w/PNA and pleural effusion. 1.0L daily fluid restriction. Will hold pts. PO lasix and administer IVP lasix 20 mg BID. Monitor I&O and daily weight. IR consults for thoracentesis or chest tube placed. Supplemental O2 with titration and SPO2 monitoring. DuoNeb's every 4 scheduled. Pt. discussed w/Dr. Hanson who agrees w/plan of care. Pt. is high risk for further morbidity and complications d/t current worsening pleural effusion(s) requiring thoracentesis or chest tube, current ascites requiring paracentesis, drop in Hgb from previous admission, current sx complicated by pts. CLL, COPD, and CHF dxs, hypercapnia requiring close monitoring, hx, and risk factors. Inpatient. (2) Shortness of breath Current Visit: Yes Status: Acute Assessment and plan: Acute on chronic SOB r/t current large pleural effusion of left lung and smaller pleural effusion of right lung, current ascites, and worsening anemia w/ Hgb of 8.3 on admission. Supplemental O2 with titration and SPO2 monitoring. DuoNeb's every 4 scheduled. IR consults placed for possible thoracentesis or chest tube for left lung. IR paracentesis ultrasound for current ascites ordered. Solu-Medrol 125 mg IVP once followed by 40 mg by mouth prednisone starting in the a.m. tomorrow to manage patient's current COPD. Stat ABG ordered. Awaiting results. Will add BiPAP if needed. (3) Hypercapnia Current Visit: Yes Status: Acute Assessment and plan: Acute hypercapnia on admission w/CO2 of 41, likely d/t current ascites and bilateral pleural effusions (left worse than right). Pt. reports need for intubation in ICU during previous admission in late March. Stat ABG ordered. DuoNebs Q4HR scheduled. Supplemental O2 with titration and SPO2 monitoring. Will add BiPAP if needed. (4) CHF (congestive heart failure) Current Visit: Yes Status: Chronic Assessment and plan: Hx of chronic CHF. Current BNP 189 at admission. Fluid overload most likely d/t current cirrhosis, however left pleural effusion worse than during last admission in late March. 1.0L daily fluid restriction. Will continue patient's Aldactone but hold patient's by mouth Lasix and replaced with 20 mg twice a day IVP Lasix. Monitor I&O and daily weight. Continuous cardiac telemetry. Qualifiers: Heart failure type: diastolic Heart failure chronicity: chronic Qualified Code(s): I50.32 - Chronic diastolic (congestive) heart failure (5) COPD (chronic obstructive pulmonary disease) Current Visit: Yes Status: Chronic Assessment and plan: Hx of chronic COPD. supplemental O2 with titration and SPO2 monitoring. IVP Solu -Medrol 125 mg once. Follow-up 40 mg by mouth prednisone in the a.m. beginning tomorrow. DuoNeb's every 4 scheduled. Qualifiers: COPD type: unspecified COPD Qualified Code(s): J44.9 - Chronic obstructive pulmonary disease, unspecified (6) HTN (hypertension) Current Visit: Yes Status: Chronic Assessment and plan: Hx of chronic HTN. Monitor patient vital signs. Continue patient's Lopressor and Aldactone. Qualifiers: Hypertension type: essential hypertension Qualified Code(s): I10 - Essential (primary) hypertension (7) HLD (hyperlipidemia) Current Visit: Yes Status: Chronic Assessment and plan: Hx of chronic HLD. Lipid panel in a.m. labs. Continue patient's Lipitor. Qualifiers: Hyperlipidemia type: pure hypercholesterolemia Qualified Code(s): E78.00 - Pure hypercholesterolemia, unspecified; E78.0 - Pure hypercholesterolemia (8) Cirrhosis Current Visit: Yes Status: Chronic Assessment and plan: Hx of non-alcoholic cirrhosis. Pt. reports increase in abdominal girth, most likely d/t ascites. IR paracentesis ultrasound ordered w/cytology following discussion with IR. We will avoid hepatotoxic medications. Ammonia level ordered. Continue patient's Carafate. Qualifiers: Hepatic cirrhosis type: other cirrhosis Qualified Code(s): K74.69 - Other cirrhosis of liver (9) Esophageal varices without bleeding Current Visit: Yes Status: Chronic Assessment and plan: Hx of esophageal varices without bleeding. Varices previously banded. Monitor. Qualifiers: Esophageal varices type: secondary Qualified Code(s): I85.10 - Secondary esophageal varices without bleeding (10) Hypothyroidism Current Visit: Yes Status: Chronic Assessment and plan: Hx of chronic hypothyroidism. Continue patient's Synthroid. Qualifiers: Hypothyroidism type: unspecified Qualified Code(s): E03.9 - Hypothyroidism , unspecified (11) CLL (chronic lymphocytic leukemia) Current Visit: Yes Status: Chronic Assessment and plan: Hx of CLL. Pt. reports seeing Dr. Murray. F/u as OP per scheduling. Current WBC 3.3, Hgb 8.3, HCT 27.2, and platelet count 60 most likely due to patient's CLL. Will monitor follow-up labs and H&H. (12) Type 2 diabetes mellitus Current Visit: Yes Status: Chronic Assessment and plan: Hx of chronic diabetes. Continue patient's 3 times a day W a.m. and twice a day insulin and add hypoglycemic protocol. BG checks before meals at bedtime. A1c in a.m. labs. 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 - Time Spent With Patient Total time spent is greater than 50% in coordination of care (as documented) at patient's floor/unit and/or counseling patient: Greater than 35 minutes <Benja Hanson - Last Filed: 05/04/18 23:55> Date of Encounter: 05/01/18 Internal Medicine - H&P: HPI History of present illness: Mr. Fang is a 58 year old male All Systems PM: A 10-system review of systems was performed and is negative for pertinent findings except as documented above in the HPI. - Constitutional Vitals: Temp Pulse Resp BP Pulse Ox 99.1 F 98 18 130/68 97 05/04/18 19:49 05/04/18 19:49 05/04/18 23:08 05/04/18 19:49 05/04/18 23:08 Internal Med - H&P Results - Labs CBC & Chem 7: 05/04/18 01:52 05/04/18 01:52 Labs: Short CBC 05/04/18 Range/Units 01:52 WBC 3.3 L (4.3-11.1) K/mcL Hgb 8.0 L (12.9-16.9) g/dL Hct 26.0 L (37.5-50.1) % Plt Count 61 L (140-400) K/mcL Neutrophils # 2.2 (1.6-8.9) K/mcL BMP 05/04/18 01:52 Sodium 140 Potassium 4.0 Chloride 95 L Carbon Dioxide 42 H* BUN 16 Creatinine 1.18 Glucose 234 H Calcium 8.7 Liver Function 05/04/18 Range/Units 01:52 Total Bilirubin 1.3 H (0.3-1.0) mg/dL AST 16 (13-39) Units/L ALT 15 (7-52) Units/L Alkaline Phosphatase 106 H (34-104) Units/L Albumin 3.4 L (3.5-5.7) g/dL - ABG Interpretation ABG results: 05/01/18 05/02/18 18:32 05:19 ABG pH 7.38 7.40 ABG pCO2 79 H* 71 H* ABG pO2 82 L 58 L ABG HCO3 47 H 44 H ABG Total CO2 49 H 46 H ABG O2 Saturation 95 88 L ABG Base Excess 19 H 16 H - Impressions ITS Impressions Abdomen/Pelvis/Transvag US 05/01/18 17:50 IMPRESSION: 1. Ultrasound-guided left chest tube placement. No immediate complications. 2. No abdominal ascites. Therefore, no paracentesis was performed. D/ / Luis Plummer MD / Luis Plummer MD Interpreting Provider: Luis Plummer MD Chest X-Ray 05/01/18 19:10 IMPRESSION: Status post left chest tube placement with interval reduction of the left pleural effusion. Near complete opacification of the left hemithorax remains. D/ / Oliver Deutsch / Oliver Deutsch Interpreting Provider: Oliver Deutsch Chest CT 05/02/18 10:24 IMPRESSION: Small hydropneumothorax remains on the left. Loculated pleural fluid is seen anterior to the pleural drainage catheter. Left upper lobe and left lower lobe are incompletely expanded, and contains scattered parenchymal opacities Small right-sided pleural effusion is seen. Scattered parenchymal opacities are seen throughout the right lung, greatest in the right lower lobe. Scattered small axillary and mediastinal nodes in keeping with the clinical diagnosis of CLL. Cirrhosis and splenomegaly. There is trace abdominal ascites D/ / Juan Carlos Green MD / Juan Carlos Green MD Interpreting Provider: Juan Carlos Green MD Chest X-Ray 05/03/18 20:15 IMPRESSION: 1. Improving left-sided pleuroparenchymal disease. 2. New right basilar atelectasis or pneumonia. D/ / Aiden Moffett MD / Aiden Moffett MD Interpreting Provider: Aiden Moffett MD Chest CT 05/04/18 08:29 IMPRESSION: 1. Stable position of left pigtail drainage catheter with small left hydropneumothorax as on the previous exam. No significant interval change. 2. Small right-sided pleural effusion also noted, unchanged. 3. Bilateral lower lobe consolidative changes are present with air bronchograms. This may be related to multifocal pneumonia and continued radiographic follow-up is recommended to ensure resolution. 4. Stable cardiomegaly with atherosclerotic vascular calcifications. 5. Findings compatible with cirrhosis with splenomegaly and ascites in the upper abdomen. D/ / Jason Erwin MD / Jason Erwin MD Interpreting Provider: Jason Erwin MD - Attending Attestation I SAW/EXAMINED AND EVALUATED THE PATIENT WITH THE PRACTICE BILLING ASSOCIATE/PA/ ON THE DAY OF ADMISSION. THE CASE WAS DISCUSSED WITH HIM/HER. I AGREE WITH THE FINDINGS/PLAN , DOCUMENTED IN THE PRACTICE BILLING ASSOCIATE/PA'S H&P. THE DOCUMENT WAS EDITED BY ME TO CORRECT ERRORS AND ADD MISSING DATA. - Assessment and plan (1) CLL (chronic lymphocytic leukemia) Current Visit: Yes Status: Chronic (2) Type 2 diabetes mellitus Current Visit: Yes Status: Chronic Qualifiers: Diabetes mellitus longwall machine operator helper insulin use: with fpc use Diabetes mellitus complication status: with hyperglycemia Qualified Code(s): E11.65 - Type 2 diabetes mellitus with hyperglycemia; Z79.4 - group home (current) use of insulin (3) Cirrhosis Current Visit: Yes Status: Chronic Qualifiers: Hepatic cirrhosis type: other cirrhosis Qualified Code(s): K74.69 - Other cirrhosis of liver (4) Esophageal varices without bleeding Current Visit: Yes Status: Chronic Qualifiers: Esophageal varices type: secondary Qualified Code(s): I85.10 - Secondary esophageal varices without bleeding (5) Hypothyroidism Current Visit: Yes Status: Chronic Qualifiers: Hypothyroidism type: unspecified Qualified Code(s): E03.9 - Hypothyroidism , unspecified (6) Pleural effusion Current Visit: Yes Status: Acute (7) CHF (congestive heart failure) Current Visit: Yes Status: Chronic Qualifiers: Heart failure type: diastolic Heart failure chronicity: chronic Qualified Code(s): I50.32 - Chronic diastolic (congestive) heart failure (8) COPD (chronic obstructive pulmonary disease) Current Visit: Yes Status: Chronic Qualifiers: COPD type: unspecified COPD Qualified Code(s): J44.9 - Chronic obstructive pulmonary disease, unspecified (9) HTN (hypertension) Current Visit: Yes Status: Chronic Qualifiers: Hypertension type: essential hypertension Qualified Code(s): I10 - Essential (primary) hypertension (10) HLD (hyperlipidemia) Current Visit: Yes Status: Chronic Qualifiers: Hyperlipidemia type: pure hypercholesterolemia Qualified Code(s): E78.00 - Pure hypercholesterolemia, unspecified; E78.0 - Pure hypercholesterolemia (11) Hypercapnia Current Visit: Yes Status: Acute (12) CAD (coronary artery disease), [place] coronary artery Current Visit: Yes Status: Acute (13) Sepsis Current Visit: Yes Status: Acute - Time Spent With Patient Total time spent is greater than 50% in coordination of care (as documented) at patient's floor/unit and/or counseling patient:
[2018-05-01 18:46] LABS: ABG Base Excess 19 mEq/L (-2 to 3); ABG HCO3 47 mEq/L (21-27); ABG Oxygen Saturation 95 % (95-98); ABG PCO2 79 mmHg (35-45); ABG PH 7.38 pH Units (7.32-7.45); ABG PO2 82 mmHg (85-104); ABG TCO2 49 mEq/L (20-26)
[2018-05-01] MEDS ORDERED: Azithromycin 500 MG in D5% in Water 250 ML IVPB SCH (19:00)
--- NOTE | 2018-05-01 19:07 | IR Procedure Note ---
Date of procedure: 05/01/18 Consent Obtained: Verbal consent, Written consent Timeout: Correct patient and procedure verified, Correct site verified, Time out performed, Skin prep completed Local anesthetic: Lidocaine 1% Indications: Pleural effusion Procedure Performed: US guided left chest tube placement Was there an surveyor instrument assistant present: No Site/Technique: US guided placement of a 10 fr left chest tube Results/Findings: Large left pleural effusion. No ascites. No paracentesis performed Estimated blood loss (cc): 0 Complications: None; Tolerated procedure well Post Procedure Treatment Plan: Continue inpatient care Specimen: Serosanguinous pleural fluid
[2018-05-01] MEDS: Ipratropium/Albuterol Neb 3 ML IH SCH ×2 (19:46→23:51)
[2018-05-01] MEDS: Insulin LISPRO 300 UNITS/3 ML VIAL SQ SCH (20:05)
[2018-05-01] MEDS: Furosemide 20 MG/2 ML VIAL IVP SCH (20:05)
[2018-05-01] MEDS: Gabapentin 300 MG CAPSULE PO SCH (20:52)
[2018-05-01] MEDS: Lactulose Oral Soln 20 GM/30 ML UDC PO SCH (20:53)
[2018-05-01 21:03] LABS: Total Protein,Pleural Fluid 3.3 g/dL (No Ref Range)
[2018-05-01 21:17] LABS: RBC,Pleural Fluid 0.002 M/mcL
[2018-05-01 21:22] LABS: Appearance of Pleural Fl Hazy (Clear)
--- NOTE | 2018-05-01 21:41 | Event Note ---
<Derick Pollard - Last Filed: 05/01/18 21:43> Date of Encounter: 05/01/18 Time of Encounter: 21:35 Alerted by pts. nurse that 1000 had been taken off from chest tube and then was clamped earlier after chest tube placed for large left pleural effusion. Nurse reported taking off an additional 500 and clamping w/need for further instructions on how to proceed w/draining chest tube. Called IR and spoke with Dr. Luis Plummer who placed the chest tube whose recommendation was to drain 1000 and clamp off, waiting an hour in between draining. I appreciate the recommendations. Pts. nurse reported that the pt. states he is currently not experiencing any SOB. Pt. to be monitored closely overnight. <Benja Hanson - Last Filed: 05/05/18 00:22> Date of Encounter: 05/01/18
[2018-05-01] MEDS: Insulin DETEMIR 100 UNIT/ML X5UNITS SQ SCH (22:16)
[2018-05-01] MEDS: ALPRAZolam 1 MG TABLET PO PRN (22:16)
[2018-05-01] MEDS: Sucralfate 1 GM TABLET PO SCH (22:17)
[2018-05-02 00:42] LABS: Basophils % 0.3 %; Hematocrit 27.4 % (37.5-50.1); Nucleated Red Blood Cells 0.5 /100 WBC (0)
[2018-05-02 00:44] LABS: Eosinophils % 0.8 %; Hemoglobin 8.4 g/dL (12.9-16.9); Immature Granulocytes % 1.8 % (0-4); Immature Platelets 3.6 % (1.1-6.1); Lymphocytes % 24.5 %; Mean Corpuscular HGB Conc 30.7 g/dL (31.6-35.5); Mean Corpuscular Hemoglobin 29.6 pg (28.0-33.3); Mean Corpuscular Volume 96.5 fL (83.0-100.0); Mean Platelet Volume 9.8 fL (9.4-12.4); Monocytes # 0.2 K/mcL (0.0-1.3); Monocytes % 4.1 %; Neutrophils # 2.7 K/mcL (1.6-8.9); Red Blood Count 2.84 M/mcL (4.19-5.50); Segmented Neutrophils % 68.5 %
[2018-05-02 00:46] LABS: Platelet Count 58 K/mcL (140-400)
[2018-05-02 01:00] LABS: Alanine Aminotransferase 13 Units/L (7-52); Albumin 3.9 g/dL (3.5-5.7); Albumin/Globulin Ratio 2.2 (1.1-2.2); Alkaline Phosphatase 129 Units/L (34-104); Aspartate Amino Transferase 18 Units/L (13-39); BUN/Creatinine Ratio 17 (6-26); Bilirubin,Total 1.8 mg/dL (0.3-1.0); Blood Urea Nitrogen 18 mg/dL (6-20); Calcium 9.6 mg/dL (8.6-10.3); Carbon Dioxide 36 mEq/L (23-29); Chloride 92 mEq/L (98-107); Chol/HDL Ratio 5.8 (0-4.9); Cholesterol 161 mg/dL (< 200); Globulin 1.8 g/dL (2.4-3.5); Glucose 249 mg/dL (70-105); HDL Cholesterol 28 mg/dL (40-59); LDL Cholesterol,Calculated 61 mg/dL (0-99); Magnesium 1.5 mg/dL (1.6-2.6); Osmolality,Calculated 300 (280-300); Phosphorous 2.3 mg/dL (2.7-4.5); Potassium 4.6 mEq/L (3.5-5.1); Sodium 140 mEq/L (136-145); Total Protein 5.7 g/dL (6.4-8.9); Triglycerides 360 mg/dL (< 150); eGFR For Non-African Americans > 60 (> 60)
[2018-05-02] MEDS: Ipratropium/Albuterol Neb 3 ML IH SCH ×5 (04:07→20:01)
[2018-05-02 05:28] LABS: ABG Base Excess 16 mEq/L (-2 to 3); ABG HCO3 44 mEq/L (21-27); ABG Oxygen Saturation 88 % (95-98); ABG PCO2 71 mmHg (35-45); ABG PO2 58 mmHg (85-104); ABG TCO2 46 mEq/L (20-26)
[2018-05-02 07:44] LABS: Estimated Average Glucose 163 mg/dl; Hemoglobin A1C 7.3 %
[2018-05-02] MEDS: Furosemide 20 MG/2 ML VIAL IVP SCH ×2 (08:05→17:03)
[2018-05-02] MEDS: Insulin DETEMIR 100 UNIT/ML X5UNITS SQ SCH ×2 (08:05→20:53)
[2018-05-02] MEDS: Insulin LISPRO 300 UNITS/3 ML VIAL SQ SCH ×3 (08:05→17:03)
[2018-05-02] MEDS: Sucralfate 1 GM TABLET PO SCH ×3 (08:06→17:03)
[2018-05-02] MEDS: predniSONE 20 MG TABLET PO SCH (08:07)
[2018-05-02] MEDS: Gabapentin 300 MG CAPSULE PO SCH ×2 (08:07→20:51)
[2018-05-02] MEDS: Lactulose Oral Soln 20 GM/30 ML UDC PO SCH ×3 (08:08→20:51)
[2018-05-02] MEDS: Aspirin 81 MG TAB.CHEW PO SCH (08:08)
--- NOTE | 2018-05-02 09:24 | Pulmonology Consult Note ---
<DoroteoolgaFortunato harrell M - Last Filed: 05/02/18 09:55> Date of Encounter: 05/02/18 Medications and Allergies ALPRAZolam [Xanax 1 MG Tablet] 1 mg PO BID PRN 05/09/15 [History] Atorvastatin Calcium [Lipitor] 20 mg PO HS 05/09/15 [History] Metformin HCl [Glucophage] 1,000 mg PO BID 05/09/15 [History] Oxygen 3 l NS HS 03/26/16 [History] Spironolactone [Aldactone] 100 mg PO DAILY 03/26/16 [History] OxyCODONE/APAP 10/325 [Percocet 10/325 MG] 1 tab PO Q6H PRN 07/30/16 [History] Furosemide [Lasix] 40 mg PO DAILY 12/24/16 [History] Insulin Glargine,Hum.rec.anlog [Lantus Solostar] 50 unit SQ BID 12/24/16 [ History] Prochlorperazine Maleate [Compazine] 1 tab PO Q6HR PRN #30 tablet 05/07/17 [Rx] Gabapentin [Neurontin] 300 mg PO BID 07/15/17 [History] Levothyroxine [Synthroid] 88 mcg PO 0630 #30 tablet 11/23/17 [Rx] Sucralfate [Carafate] 1 gm PO TID 03/09/18 [History] Insulin Regular, Human [Novolin R] 20 unit SQ TIDWM #18 vial 03/19/18 [Rx] Aspirin 81 mg PO DAILY 03/26/18 [History] Lactulose [Kristalose] 20 gm PO TID 03/26/18 [History] Pantoprazole Sodium [Protonix] 40 mg PO DAILY 03/26/18 [History] Metoprolol [Lopressor] 75 mg PO BID 05/01/18 [History] Nitroglycerin [Nitromist] 4.1 gm TL AD PRN 05/01/18 [History] 3 Allergy/AdvReac Type Severity Reaction Status Date / Time naproxen Allergy Mild Hives Verified 05/01/18 14:24 rituximab Allergy Mild Hives Verified 05/01/18 14:24 JUAN RAMON Inhibitors AdvReac Mild NECK PAIN Verified 05/01/18 14:24 cefdinir AdvReac Mild Dizziness Verified 05/01/18 14:24 hydrocodone AdvReac Mild Vomiting Verified 05/01/18 14:24 levofloxacin AdvReac Mild Dizziness Verified 05/01/18 14:24 ramipril [From Altace] AdvReac Mild NECK PAIN Verified 05/01/18 14:24 tramadol AdvReac Mild Nausea Verified 05/01/18 14:24 doxycycline AdvReac Vomiting Verified 05/01/18 14:24 All Systems: The remainder of the systems were reviewed and are negative Physical Examination Vital Signs: Vital Signs, Last 4 Hours Temp Pulse Resp BP Pulse Ox 05/02/18 07:58 20 85 05/02/18 07:14 98.6 F 94 17 152/65 93 Results - Laboratory Findings CBC and BMP: 05/02/18 00:29 05/02/18 00:29 ABG ABG pH 7.40 pH Units (7.32-7.45) 05/02/18 05:19 ABG pCO2 71 mmHg (35-45) H* 05/02/18 05:19 ABG pO2 58 mmHg (85-104) L 05/02/18 05:19 ABG O2 Saturation 88 % (95-98) L 05/02/18 05:19 PT/INR, D-dimer PT 12.7 Seconds (9.4-12.1) H 05/01/18 15:11 Abnormal lab findings: Abnormal lab results WBC 3.9 K/mcL (4.3-11.1) L 05/02/18 00:29 RBC 2.84 M/mcL (4.19-5.50) L 05/02/18 00:29 Hgb 8.4 g/dL (12.9-16.9) L 05/02/18 00:29 Hct 27.4 % (37.5-50.1) L 05/02/18 00:29 MCHC 30.7 g/dL (31.6-35.5) L 05/02/18 00:29 RDW 16.0 % (11.5-14.5) H 05/02/18 00:29 Plt Count 58 K/mcL (140-400) L 05/02/18 00:29 Nucleated RBCs/100 WBC 0.5 /100 WBC (0) H 05/02/18 00:29 PT 12.7 Seconds (9.4-12.1) H 05/01/18 15:11 APTT 36.8 Seconds (26.0-36.0) H 05/01/18 15:11 ABG pCO2 71 mmHg (35-45) H* 05/02/18 05:19 ABG pO2 58 mmHg (85-104) L 05/02/18 05:19 ABG HCO3 44 mEq/L (21-27) H 05/02/18 05:19 ABG Total CO2 46 mEq/L (20-26) H 05/02/18 05:19 ABG O2 Saturation 88 % (95-98) L 05/02/18 05:19 ABG Base Excess 16 mEq/L (-2 to 3) H 05/02/18 05:19 Chloride 92 mEq/L (98-107) L 05/02/18 00:29 Carbon Dioxide 36 mEq/L (23-29) H 05/02/18 00:29 Glucose 249 mg/dL (70-105) H 05/02/18 00:29 POC Glucose 203 mg/dL (70-99) H 05/01/18 17:23 Hemoglobin A1c 7.3 % (-5.6) H 05/02/18 00:29 Lactic Acid 4.6 mmol/L (0.5-2.2) H* 05/02/18 00:29 Phosphorus 2.3 mg/dL (2.7-4.5) L 05/02/18 00:29 Magnesium 1.5 mg/dL (1.6-2.6) L 05/02/18 00:29 Total Bilirubin 1.8 mg/dL (0.3-1.0) H 05/02/18 00:29 Alkaline Phosphatase 129 Units/L (34-104) H 05/02/18 00:29 Ammonia 77 mcmol/L (16-53) H 05/01/18 17:55 B-Natriuretic Peptide 189 pg/mL (Less than 100) H 05/01/18 15:11 Serum Total Protein 5.7 g/dL (6.4-8.9) L 05/02/18 00:29 Globulin 1.8 g/dL (2.4-3.5) L 05/02/18 00:29 Triglycerides 360 mg/dL (< 150) H 05/02/18 00:29 VLDL Cholesterol, Calc 72 mg/dL (< 31) H 05/02/18 00:29 HDL Cholesterol 28 mg/dL (40-59) L 05/02/18 00:29 Cholesterol/HDL Ratio 5.8 (0-4.9) H 05/02/18 00:29 Pleural Appearance Hazy (Clear) A 05/01/18 18:50 - Microbiology Findings Microbiology Findings: Microbiology, Last 48 Hours 05/01/18 18:50 Body Fluid Culture - Preliminary Pleural Fluid - Clinical Findings Intake & Output: Intake & Output 05/01/18 05/02/18 05/02/18 23:59 07:59 15:59 Intake Total 240 / 240 Output Total 1430 / 1430 400 / 400 Balance -1430 / -1430 -400 / -400 240 / 240 Weight 115.2 kg 112.309 kg Consult Discharge Plan - Plan Referrals: Derick Ellis DO [Primary Care Provider] - - Attending Attestation I examined this patient and my medical decision-making was reviewed with the Resident Physician. I agree with the documented findings, disposition and treatment plan as described except to the extent set forth below. Patient seen and examined. Labs, radiology, chart personally reviewed. 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 Patient had chest tube placement and it looks like fluid is exudative in nature and due to complicated medical history with history of CLL CT chest is recommended to evaluate for any underlying malignancies. Also with history of liver cirrhosis it might be complicated the patient having chest tube and it may continue drainage. Pleurx pleural catheter might be an alternative. Need to make sure fluid Thank you for consultation we will continue follow-up. <Lee Anderson - Last Filed: 05/02/18 14:39> Date of Encounter: 05/02/18 Time of Encounter: 09:30 Assessment and Plan (1) Pleural effusion Current Visit: Yes Status: Acute Pleural effusion, loculated Etiology is not entirely clear, cirrhosis + chf may play a role, however CLL vs infection may also be involved Fluid analysis demonstrates exudative effusion, culture pending Afebrile, HR 94 RR 24, WBC 3.3, Lactic acid 3.0 -> 3.6 -> 4.6 Chest tube in appropriate place, draining fluid appropriately The patient's respiratory status is poor, and potentially worsening secondary to effusion ABG 7.40/71/58/44 Recommendations -Allow chest tube to drain 1L fluid, then clamp and leave in place. We will re- evaluate in the morning -Continue Oxygen as needed, try to titrate to home O2 of 3L -There is some concern for infectious component, consider broadening antibiotics. I will repeat lactic acid and blood cultures -Await cytology of pleural fluid, recommend oncology consult if malignancy is present -Pleurex catheter may be an option History of Present Illness Consult date: 05/02/18 Requesting physician: Tesha Sandoval Reason for consult: pleural effusion Chief complaint: Pleural effusion History of present illness: Mr. Fang is a 58-year-old gentleman with a history of CLL, CHF, COPD, diabetes , GERD, hyperlipidemia, hypertension and chronic cirrhosis of the liver who presented to the emergency room with shortness of breath for 3 days duration on 05/01/18. Significantly, the patient had been admitted to [facility] and was placed in the ICU with intubation in February for possible STEMI, pneumonia and pleural effusions but was successfully extubated and was discharged on 03/19. On this current admission, the patient was found to have significant pleural effusions on chest x-ray, with near complete white out of the left. Significantly, the patient remained afebrile and did not appear septic. He also did not have any evidence of an active pneumonia at this time. Per IR, the patient underwent ultrasound-guided thoracentesis and then underwent ultrasound-guided chest tube insertion. The patient was able to tolerate the drainage of approximately 1 L fluid, and then another 500 mL of fluid later that evening prior to clamping the tube. He had a repeat chest x-ray in the morning yesterday, which showed some improvement of his pleural effusion, however overall no significant improvement. Pulmonology was consulted for management of this chest tube. Past Med Surg Social Fam HX - Past Medical History Medical history: cancer (CLL), cirrhosis, CHF, COPD, diabetes, GERD, hyperlipidemia, hypertension, kidney stones, myocardial infarction Additional medical history: morbid obesity with BMI of 45-49 adult. history of colon polyps. stomach polyp removed. esophageal varicies banded. lymphatic leukemia Psychiatric history: depression - Past Surgical History Surgical History: LE stent(s) Additional surgical history: Hernia repair. Kidney stones. esophageal varicies. stomach polyp removed and clamp placed - Social History Smoking Status: Former smoker Packs per day: 1.5 - 2 PPD: Reports quitting in 2006 Smokeless Tobacco Status: No Alcohol use: none Drug use: none - Family History Mother Race: Family Member Ethnicity: Non- Living Status: Age at : 51 Cause of : COPD Hx Family Respiratory Disorders: Yes (COPD) Father Race: Family Member Ethnicity: Non- Living Status: Age at : 68 Cause of : Small cell lung cancer Hx Family Cancer: Yes (Small cell lung & Throat) Brother Race: Family Member Ethnicity: Non- Living Status: Age at : 42 Cause of : Suicide Sister Race: Family Member Ethnicity: Non- Living Status: Age at : 63 Cause of : COPD Hx Family Respiratory Disorders: Yes (COPD) All Systems: The remainder of the systems were reviewed and are negative Review of Systems: Constitutional: Denies fevers, chills, weight loss, admits to generalized fatigue Head/Neck: Denies JAVIER, neck stiffness EENT: Denies vision changes/blurriness, rhinorrhea, congestion, sore throat CVS: Admits to some dyspnea on exertion, orthopnea which is chronic, denies chest pain Pulm: Admits to shortness of breath with cough, some productive : Denies dysuria, increased frequency, urgency, hematuria Skin: Denies rashes, ulcers, color changes Neuro: Denies JAVIER, paresthesias, focal deficits, ataxia Physical Examination Vital Signs: Vital Signs, Last 4 Hours Temp Pulse Resp BP Pulse Ox 05/02/18 07:58 20 85 05/02/18 07:14 98.6 F 94 17 152/65 93 Gen: Vitals noted. No acute distress. HEENT: Normocephalic, atraumatic Cardiac: RRR, no murmur, +S1/S2 Pulmonary: Significantly diminished on left with bilateral crackles dispersed. Chest tube located in left back Abdomen: Generally distended, nontender, no guarding Back: Nontender throughout. Extremities: There is 1-2+ bilateral lower extremity edema Neuro: moves all extremities, no focal deficits. A&Ox3 Psych: Appropriate mood and behavior Results - Laboratory Findings CBC and BMP: 05/02/18 00:29 05/02/18 00:29 ABG ABG pH 7.40 pH Units (7.32-7.45) 05/02/18 05:19 ABG pCO2 71 mmHg (35-45) H* 05/02/18 05:19 ABG pO2 58 mmHg (85-104) L 05/02/18 05:19 ABG O2 Saturation 88 % (95-98) L 05/02/18 05:19 PT/INR, D-dimer PT 12.7 Seconds (9.4-12.1) H 05/01/18 15:11 Abnormal lab findings: Abnormal lab results WBC 3.9 K/mcL (4.3-11.1) L 05/02/18 00:29 RBC 2.84 M/mcL (4.19-5.50) L 05/02/18 00:29 Hgb 8.4 g/dL (12.9-16.9) L 05/02/18 00:29 Hct 27.4 % (37.5-50.1) L 05/02/18 00:29 MCHC 30.7 g/dL (31.6-35.5) L 05/02/18 00:29 RDW 16.0 % (11.5-14.5) H 05/02/18 00:29 Plt Count 58 K/mcL (140-400) L 05/02/18 00:29 Nucleated RBCs/100 WBC 0.5 /100 WBC (0) H 05/02/18 00:29 PT 12.7 Seconds (9.4-12.1) H 05/01/18 15:11 APTT 36.8 Seconds (26.0-36.0) H 05/01/18 15:11 ABG pCO2 71 mmHg (35-45) H* 05/02/18 05:19 ABG pO2 58 mmHg (85-104) L 05/02/18 05:19 ABG HCO3 44 mEq/L (21-27) H 05/02/18 05:19 ABG Total CO2 46 mEq/L (20-26) H 05/02/18 05:19 ABG O2 Saturation 88 % (95-98) L 05/02/18 05:19 ABG Base Excess 16 mEq/L (-2 to 3) H 05/02/18 05:19 Chloride 92 mEq/L (98-107) L 05/02/18 00:29 Carbon Dioxide 36 mEq/L (23-29) H 05/02/18 00:29 Glucose 249 mg/dL (70-105) H 05/02/18 00:29 POC Glucose 203 mg/dL (70-99) H 05/01/18 17:23 Hemoglobin A1c 7.3 % (-5.6) H 05/02/18 00:29 Lactic Acid 4.6 mmol/L (0.5-2.2) H* 05/02/18 00:29 Phosphorus 2.3 mg/dL (2.7-4.5) L 05/02/18 00:29 Magnesium 1.5 mg/dL (1.6-2.6) L 05/02/18 00:29 Total Bilirubin 1.8 mg/dL (0.3-1.0) H 05/02/18 00:29 Alkaline Phosphatase 129 Units/L (34-104) H 05/02/18 00:29 Ammonia 77 mcmol/L (16-53) H 05/01/18 17:55 B-Natriuretic Peptide 189 pg/mL (Less than 100) H 05/01/18 15:11 Serum Total Protein 5.7 g/dL (6.4-8.9) L 05/02/18 00:29 Globulin 1.8 g/dL (2.4-3.5) L 05/02/18 00:29 Triglycerides 360 mg/dL (< 150) H 05/02/18 00:29 VLDL Cholesterol, Calc 72 mg/dL (< 31) H 05/02/18 00:29 HDL Cholesterol 28 mg/dL (40-59) L 05/02/18 00:29 Cholesterol/HDL Ratio 5.8 (0-4.9) H 05/02/18 00:29 Pleural Appearance Hazy (Clear) A 05/01/18 18:50 - Microbiology Findings Microbiology Findings: Microbiology, Last 48 Hours 05/01/18 18:50 Body Fluid Culture - Preliminary Pleural Fluid - Clinical Findings Intake & Output: Intake & Output 05/01/18 05/02/18 05/02/18 23:59 07:59 15:59 Intake Total 240 / 240 Output Total 1430 / 1430 400 / 400 Balance -1430 / -1430 -400 / -400 240 / 240 Weight 115.2 kg 112.309 kg
--- NOTE | 2018-05-02 09:41 | Internal Med Progress Note ---
Hospitalist Progress Note - Encounter Date of Encounter: 05/02/18 Time of Encounter: 09:55 - Subjective Interval History: Seen and examined at bedside. Patient is new to me, information obtained from chart review, patient report and at bedside. Patient says he feels significantly better today. Still has some shortness of breath but overall improved. Has some pain at CT insertion site otherwise says he feels well. at bedside and updated. Plan to consult pulmonology for CT management. - Exam Vitals: Temp Pulse Resp BP Pulse Ox 98.6 F 94 20 152/65 85 05/02/18 07:14 05/02/18 07:14 05/02/18 07:58 05/02/18 07:14 05/02/18 07:58 Exam: General appearance: Present: cooperative, mild distress (SOB/Dyspnea), A&O X 3, morbidly obese, pleasant, answers questions appropriately - Head Head exam: Present: atraumatic, normocephalic - Eye Eye exam: Present: PERRL, conjuntiva pink, sclera anicteric Pupils: Present: PERRL - ENT ENT exam: Present: normal exam - Neck Neck exam general surgery: Present: normal inspection, supple, trachea midline. Absent: lymphadenopathy - Respiratory Respiratory exam: Present: accessory muscle use, decreased breath sounds. Absent: rales, rhonchi, wheezes - Cardiovascular Cardiovascular exam: Present: RRR, +S1, +S2. Absent: diastolic murmur, gallop, rubs, systolic murmur - GI/Abdominal GI/Abdominal exam: Present: normal bowel sounds, soft, no peritoneal signs. Absent: distended, tenderness - Rectal Rectal exam: Present: deferred - Additional comments: exam deferred. - Extremities Exam Extremities exam: Present: pedal edema, warm, radial pulses palpable and symmetrical. Absent: calf tenderness, cyanotic - Back Exam Back exam: Present: normal inspection - Neurological Exam Neurological exam: Present: CN II-XII intact, oriented X3, no focal deficits. Absent: pronater drift, facial droop, speech deficit - Psychiatric Psychiatric exam: Present: normal affect, normal mood - Skin Skin exam: Present: dry, intact - Assessment and Plan (1) Pleural effusion Current Visit: Yes Status: Acute Assessment and Plan: presented with SOB. CXR showed complete opacification of the left hemithorax, worsened since 04/21/18, right lung demonstrates a small pleural effusion. No pneumothorax. S/p CT placement per IR. Repeat CXR shows slight improvement in left pleural effusion. Continue IV diuresis. Pulmonology consult to assist with CT management. Fluid analysis pending (2) CLL (chronic lymphocytic leukemia) Current Visit: Yes Status: Chronic Assessment and Plan: per hx. Follows with Dr. Murray. F/u as OP per scheduling. Pancytopenia most likely related to CLL. Monitor CBC. Follow-up with Oncology as previously planned (3) Cirrhosis Current Visit: Yes Status: Chronic Assessment and Plan: hx non-alcoholic cirrhosis. ABD US without ascites, no paracentesis indicated. LFTs stable. Ammonia level 77. Cont home back down. IV diuresis. Continue home lactulose. (4) Esophageal varices without bleeding Current Visit: Yes Status: Chronic Assessment and Plan: hx of esophageal varices without bleeding. Varices previously banded. Cont home BB (5) CHF (congestive heart failure) Current Visit: Yes Status: Chronic Assessment and Plan: 02/2018 TTE with EF 50% and indeterminate diastolic dysfunction. Clinically appears overloaded with shortness of breath, increased O2 requirements and lower extremity edema. BNP 189. Fluid overload most likely d/t current cirrhosis however I do suspect some component of acute on chronic diastolic dysfunction. Continue home Aldactone. Holding home Lasix. Continue IV diuresis. Strict I&O, daily weights. (6) Type 2 diabetes mellitus Current Visit: Yes Status: Chronic Assessment and Plan: per hx. holding home metformin. SSI. Monitor blood sugars and titrate PRN (7) Hypothyroidism Current Visit: Yes Status: Chronic Assessment and Plan: Hx of chronic hypothyroidism. Continue patient's Synthroid. (8) COPD (chronic obstructive pulmonary disease) Current Visit: Yes Status: Chronic Assessment and Plan: hx COPD with chronic respiratory failure; wears O2 [id number] at home. No evidence of exacerbation on exam. Received one-time dose IV steroids and EGD. No wheezing. Hold on steroids. Cont supplemental O2. Wean to home dose as able. (9) HTN (hypertension) Current Visit: Yes Status: Chronic Assessment and Plan: per hx. BP mildly elevated. Continue home BP medication. Monitor BP and titrate PRN (10) HLD (hyperlipidemia) Current Visit: Yes Status: Chronic Assessment and Plan: per hx. Cont home statin (11) Hypercapnia Current Visit: Yes Status: Acute Assessment and Plan: Acute hypercapnia on admission w/CO2 of 41, likely d/t current ascites and bilateral pleural effusions (left worse than right). Pt. reports need for intubation in ICU during previous admission in late March. Stat ABG ordered. DuoNebs Q4HR scheduled. Supplemental O2 with titration and SPO2 monitoring. Will add BiPAP if needed. DVT Prophylaxis: SCDs - Time Spent with Patient Total time spent is greater than 50% in coordination of care (as documented) at patient's floor/unit and/or counseling patient: 25 - 35 minutes Plan of Care Discussed with: patient Internal Medicine: Result - Labs CBC & Chem 7: 05/02/18 00:29 05/02/18 00:29 Labs: Short CBC 05/02/18 Range/Units 00:29 WBC 3.9 L (4.3-11.1) K/mcL Hgb 8.4 L (12.9-16.9) g/dL Hct 27.4 L (37.5-50.1) % Plt Count 58 L (140-400) K/mcL Neutrophils # 2.7 (1.6-8.9) K/mcL BMP 05/02/18 00:29 Sodium 140 Potassium 4.6 Chloride 92 L Carbon Dioxide 36 H BUN 18 Creatinine 1.06 Glucose 249 H Calcium 9.6 Liver Function 05/02/18 Range/Units 00:29 Total Bilirubin 1.8 H (0.3-1.0) mg/dL AST 18 (13-39) Units/L ALT 13 (7-52) Units/L Alkaline Phosphatase 129 H (34-104) Units/L Albumin 3.9 (3.5-5.7) g/dL - ABG Interpretation ABG results: ABG ABG pH 7.40 pH Units (7.32-7.45) 05/02/18 05:19 ABG pCO2 71 mmHg (35-45) H* 05/02/18 05:19 ABG pO2 58 mmHg (85-104) L 05/02/18 05:19 ABG O2 Saturation 88 % (95-98) L 05/02/18 05:19 PT/INR, D-dimer PT 12.7 Seconds (9.4-12.1) H 05/01/18 15:11 - Impressions Impressions Abdomen/Pelvis/Transvag US 05/01/18 17:50 IMPRESSION: 1. Ultrasound-guided left chest tube placement. No immediate complications. 2. No abdominal ascites. Therefore, no paracentesis was performed. D/ / Luis Plummer MD / Luis Plummer MD Interpreting Provider: Luis Plummer MD Chest X-Ray 05/01/18 19:10 IMPRESSION: Status post left chest tube placement with interval reduction of the left pleural effusion. Near complete opacification of the left hemithorax remains. D/ / Oliver Deutsch / Oliver Deutsch Interpreting Provider: Oliver Deutsch Consult Discharge Plan - Plan Referrals: Derick Ellis DO [Primary Care Provider] - (3) Cirrhosis Qualifiers: Hepatic cirrhosis type: other cirrhosis Qualified Code(s): K74.69 - Other cirrhosis of liver (4) Esophageal varices without bleeding Qualifiers: Esophageal varices type: secondary Qualified Code(s): I85.10 - Secondary esophageal varices without bleeding (5) CHF (congestive heart failure) Qualifiers: Heart failure type: diastolic Heart failure chronicity: chronic Qualified Code(s): I50.32 - Chronic diastolic (congestive) heart failure (6) Type 2 diabetes mellitus Qualifiers: 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: with 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 use Diabetes mellitus complication status: with hyperglycemia Qualified Code(s): E11.65 - Type 2 diabetes mellitus with hyperglycemia; 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 of 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 (7) Hypothyroidism Qualifiers: Hypothyroidism type: unspecified Qualified Code(s): E03.9 - Hypothyroidism, unspecified (8) COPD (chronic obstructive pulmonary disease) Qualifiers: COPD type: unspecified COPD Qualified Code(s): J44.9 - Chronic obstructive pulmonary disease, unspecified (9) HTN (hypertension) Qualifiers: Hypertension type: essential hypertension Qualified Code(s): I10 - Essential (primary) hypertension (10) HLD (hyperlipidemia) Qualifiers: Hyperlipidemia type: pure hypercholesterolemia Qualified Code(s): E78.00 - Pure hypercholesterolemia, unspecified; E78.0 - Pure hypercholesterolemia
[2018-05-02] MEDS: Piperacillin/Tazobactam 3.375 GM in 0.9 % Sodium Chloride Mini Bag 100 ML IVPB SCH ×2 (16:21→23:30)
[2018-05-02] MEDS: ALPRAZolam 1 MG TABLET PO PRN (21:38)
[2018-05-03] MEDS: Ipratropium/Albuterol Neb 3 ML IH SCH ×7 (00:10→23:52)
[2018-05-03 05:22] LABS: Basophils % 0.4 %; Hemoglobin 8.8 g/dL (12.9-16.9); Immature Granulocytes % 1.8 % (0-4); Nucleated Red Blood Cells 0.4 /100 WBC (0)
[2018-05-03 05:24] LABS: Eosinophils # 0.1 K/mcL (0.0-0.6); Eosinophils % 1.8 %; Hematocrit 28.1 % (37.5-50.1); Immature Platelets 3.6 % (1.1-6.1); Lymphocytes # 1.4 K/mcL (0.6-4.6); Lymphocytes % 25.5 %; Mean Corpuscular HGB Conc 31.3 g/dL (31.6-35.5); Mean Corpuscular Hemoglobin 29.9 pg (28.0-33.3); Mean Corpuscular Volume 95.6 fL (83.0-100.0); Mean Platelet Volume 10.3 fL (9.4-12.4); Monocytes # 0.8 K/mcL (0.0-1.3); Monocytes % 14.4 %; Neutrophils # 3.1 K/mcL (1.6-8.9); Red Blood Count 2.94 M/mcL (4.19-5.50); Red Cell Distribution Width 16.3 % (11.5-14.5); Segmented Neutrophils % 56.1 %
[2018-05-03 05:26] LABS: Platelet Count 57 K/mcL (140-400)
[2018-05-03 05:37] LABS: Alanine Aminotransferase 14 Units/L (7-52); Albumin 3.5 g/dL (3.5-5.7); Albumin/Globulin Ratio 1.7 (1.1-2.2); Alkaline Phosphatase 102 Units/L (34-104); Aspartate Amino Transferase 21 Units/L (13-39); BUN/Creatinine Ratio 17 (6-26); Bilirubin,Total 1.5 mg/dL (0.3-1.0); Blood Urea Nitrogen 17 mg/dL (6-20); Calcium 8.8 mg/dL (8.6-10.3); Carbon Dioxide 39 mEq/L (23-29); Chloride 101 mEq/L (98-107); Globulin 2.1 g/dL (2.4-3.5); Glucose 135 mg/dL (70-105); Osmolality,Calculated 292 (280-300); Sodium 139 mEq/L (136-145); Total Protein 5.6 g/dL (6.4-8.9); eGFR For Non-African Americans > 60 (> 60)
[2018-05-03] MEDS ORDERED: *HR* OxyCODONE/APAP 5/325 TABLET PO PRN (08:06)
[2018-05-03] MEDS ORDERED: traMADol 50 MG TABLET PO PRN (08:07)
[2018-05-03] MEDS: Lactulose Oral Soln 20 GM/30 ML UDC PO SCH ×3 (08:17→22:06)
[2018-05-03] MEDS: Furosemide 20 MG/2 ML VIAL IVP SCH ×2 (08:17→16:16)
[2018-05-03] MEDS: Gabapentin 300 MG CAPSULE PO SCH ×2 (08:17→22:07)
[2018-05-03] MEDS: Aspirin 81 MG TAB.CHEW PO SCH (08:17)
[2018-05-03] MEDS: predniSONE 20 MG TABLET PO SCH (08:17)
[2018-05-03] MEDS: Sucralfate 1 GM TABLET PO SCH ×3 (08:17→16:16)
[2018-05-03] MEDS: Insulin LISPRO 300 UNITS/3 ML VIAL SQ SCH ×6 (08:18→22:06)
[2018-05-03] MEDS: Piperacillin/Tazobactam 3.375 GM in 0.9 % Sodium Chloride Mini Bag 100 ML IVPB SCH ×3 (08:18→22:07)
[2018-05-03] MEDS: Insulin DETEMIR 100 UNIT/ML X5UNITS SQ SCH ×2 (08:19→22:06)
--- NOTE | 2018-05-03 08:42 | Internal Med Progress Note ---
Hospitalist Progress Note - Encounter Date of Encounter: 05/03/18 Time of Encounter: 08:40 - Subjective Interval History: Seen and examined at bedside. Sitting up on edge of bed, appears comfortable. No distress apparent. Denies shortness of breath or chest pain at time my exam. - Exam Vitals: Temp Pulse Resp BP Pulse Ox 97.3 F L 92 19 133/62 91 05/03/18 07:13 05/03/18 07:13 05/03/18 07:44 05/03/18 07:13 05/03/18 07:44 Exam: Exam: General appearance: Present: cooperative, A&O X 3, morbidly obese, pleasant, answers questions appropriately - Head Head exam: Present: atraumatic, normocephalic - Eye Eye exam: Present: PERRL, conjuntiva pink, sclera anicteric Pupils: Present: PERRL - ENT ENT exam: Present: normal exam - Neck Neck exam general surgery: Present: normal inspection, supple, trachea midline. Absent: lymphadenopathy - Respiratory Respiratory exam: respirations easy and unlabored. Lung sounds with scattered rhonchi. No wheezes - Cardiovascular Cardiovascular exam: Present: RRR, +S1, +S2. Absent: diastolic murmur, gallop, rubs, systolic murmur. Tele: NSR to ST - GI/Abdominal GI/Abdominal exam: Present: normal bowel sounds, soft, no peritoneal signs. Absent: distended, tenderness - Rectal Rectal exam: Present: deferred - Additional comments: exam deferred. - Extremities Exam Extremities exam: Present: pedal edema, warm, radial pulses palpable and symmetrical. Absent: calf tenderness, cyanotic - Back Exam Back exam: Present: normal inspection - Neurological Exam Neurological exam: Present: CN II-XII intact, oriented X3, no focal deficits. Absent: pronater drift, facial droop, speech deficit - Psychiatric Psychiatric exam: Present: normal affect, normal mood - Skin Skin exam: Present: dry, intact - Assessment and Plan (1) Pleural effusion Current Visit: Yes Status: Acute Assessment and Plan: recurrent. S/p left thoracentesis 04/21/18 with removal of 1500 mL at that time. Fluid cytology showed reactive mesothelial cells. Now with persistent and worsening SOB. CXR showed complete opacification of the left hemithorax, worsened since 04/21/18, right lung demonstrates a small pleural effusion. No pneumothorax. S/p CT placement per IR. Repeat CXR shows slight improvement in left pleural effusion. Continue IV diuresis. Pulmonology following. Fluid analysis pending (2) Sepsis Current Visit: Yes Status: Acute Assessment and Plan: meets sepsis criteria with tachycardia, hypotension and tachypnea Suspected source possible pneumonia; chest CT showed bilateral pneumonia. No elevated WBC. Lactic acid peaked at 4.6 and trended down. Afebrile and does not appear acute or toxic. ATB coverage broadened to Vanco and zosyn. No IV fluids with fluid overload and pleural effusions. Blood cx's pending (3) CLL (chronic lymphocytic leukemia) Current Visit: Yes Status: Chronic Assessment and Plan: per hx. Follows with Dr. Murray. With persistent pancytopenia secondary to CLL. Last seen by oncology 02/2018 who recommended starting Ibrutnib if pancytopenia persist. Labwork consistent with pancytopenia but appears to be stable since 02/2018 oncology evaluation. No active bleeding. Monitor CBC. Oncology consulted (4) Cirrhosis Current Visit: Yes Status: Chronic Assessment and Plan: hx non-alcoholic cirrhosis. ABD US without ascites, no paracentesis indicated. Patient did have an episode of hepatic encephalopathy during 03/09/18 admission. LFTS stable, ammonia 77. Albumin and INR normal. Maintaining appropriate mentation. Cont home lactulose. (5) Esophageal varices without bleeding Current Visit: Yes Status: Chronic Assessment and Plan: hx of esophageal varices without bleeding. Varices previously banded. Cont home BB (6) CHF (congestive heart failure) Current Visit: Yes Status: Chronic Assessment and Plan: 02/2018 TTE with EF 50% and indeterminate diastolic dysfunction. Clinically appears overloaded with shortness of breath, increased O2 requirements and lower extremity edema. BNP 189. Fluid overload most likely d/t current cirrhosis however suspect some component of acute on chronic diastolic dysfunction. Continue home Aldactone. Holding home Lasix. Continue IV diuresis. Strict I&O, daily weights. (7) Type 2 diabetes mellitus Current Visit: Yes Status: Chronic Assessment and Plan: per hx. Holding home metformin. Cont home long acting and prandial coverage. Blood sugars elevated with steroids, low dose SSI added. Monitor blood sugars and titrate PRN (8) Hypothyroidism Current Visit: Yes Status: Chronic Assessment and Plan: Hx of chronic hypothyroidism. Continue patient's Synthroid. (9) CAD (coronary artery disease), [place] coronary artery Current Visit: Yes Status: Acute Assessment and Plan: [place] CAD, prior PCI. 02/2018 TTE with preserved LVEF. Troponins mildly elevated during 02/2018 admission and he was evaluated by Cardiology at that time who did not recommend LHC due to thrombocytopenia. Denies chest pain. Cont ASA, BB, statin (10) COPD (chronic obstructive pulmonary disease) Current Visit: Yes Status: Chronic Assessment and Plan: hx COPD with chronic respiratory failure; wears O2 [id number] at home. Received one-time dose IV steroids and EGD. No wheezing; however will continue steroids with acute on chronic respiration failure. Cont supplemental O2. Wean to home dose as able. (11) HTN (hypertension) Current Visit: Yes Status: Chronic Assessment and Plan: per hx. BP mildly elevated. Continue home BP medication. Monitor BP and titrate PRN (12) HLD (hyperlipidemia) Current Visit: Yes Status: Chronic Assessment and Plan: per hx. Cont home statin (13) Hypercapnia Current Visit: Yes Status: Acute Assessment and Plan: Acute hypercapnia on admission w/CO2 of 41, likely d/t current ascites and bilateral pleural effusions (left worse than right). Pt. reports need for intubation in ICU during previous admission in late March. AB showed pCO2 71. Add BiPAP DVT Prophylaxis: SCDs - Time Spent with Patient Total time spent is greater than 50% in coordination of care (as documented) at patient's floor/unit and/or counseling patient: Internal Medicine: Result - Labs CBC & Chem 7: 05/03/18 04:58 05/03/18 04:58 Labs: Short CBC 05/03/18 Range/Units 04:58 WBC 5.5 (4.3-11.1) K/mcL Hgb 8.8 L (12.9-16.9) g/dL Hct 28.1 L (37.5-50.1) % Plt Count 57 L (140-400) K/mcL Neutrophils # 3.1 (1.6-8.9) K/mcL BMP 05/03/18 04:58 Sodium 139 Potassium 5.0 Chloride 101 Carbon Dioxide 39 H BUN 17 Creatinine 1.03 Glucose 135 H Calcium 8.8 Liver Function 05/03/18 Range/Units 04:58 Total Bilirubin 1.5 H (0.3-1.0) mg/dL AST 21 (13-39) Units/L ALT 14 (7-52) Units/L Alkaline Phosphatase 102 (34-104) Units/L Albumin 3.5 (3.5-5.7) g/dL - ABG Interpretation ABG results: ABG ABG pH 7.40 pH Units (7.32-7.45) 05/02/18 05:19 ABG pCO2 71 mmHg (35-45) H* 05/02/18 05:19 ABG pO2 58 mmHg (85-104) L 05/02/18 05:19 ABG O2 Saturation 88 % (95-98) L 05/02/18 05:19 PT/INR, D-dimer PT 12.7 Seconds (9.4-12.1) H 05/01/18 15:11 - Impressions Impressions Abdomen/Pelvis/Transvag US 05/01/18 17:50 IMPRESSION: 1. Ultrasound-guided left chest tube placement. No immediate complications. 2. No abdominal ascites. Therefore, no paracentesis was performed. D/ / Luis Plummer MD / Luis Plummer MD Interpreting Provider: Luis Plummer MD Chest CT 05/02/18 10:24 IMPRESSION: Small hydropneumothorax remains on the left. Loculated pleural fluid is seen anterior to the pleural drainage catheter. Left upper lobe and left lower lobe are incompletely expanded, and contains scattered parenchymal opacities Small right-sided pleural effusion is seen. Scattered parenchymal opacities are seen throughout the right lung, greatest in the right lower lobe. Scattered small axillary and mediastinal nodes in keeping with the clinical diagnosis of CLL. Cirrhosis and splenomegaly. There is trace abdominal ascites D/ / Juan Carlos Green MD / Juan Carlos Green MD Interpreting Provider: Juan Carlos Green MD Consult Discharge Plan - Plan Referrals: Derick Ellis DO [Primary Care Provider] - (4) Cirrhosis Qualifiers: Hepatic cirrhosis type: other cirrhosis Qualified Code(s): K74.69 - Other cirrhosis of liver (5) Esophageal varices without bleeding Qualifiers: Esophageal varices type: secondary Qualified Code(s): I85.10 - Secondary esophageal varices without bleeding (6) CHF (congestive heart failure) Qualifiers: Heart failure type: diastolic Heart failure chronicity: chronic Qualified Code(s): I50.32 - Chronic diastolic (congestive) heart failure (7) Type 2 diabetes mellitus Qualifiers: Diabetes mellitus half-way insulin use: with half-way use Diabetes mellitus complication status: with hyperglycemia Qualified Code(s): E11.65 - Type 2 diabetes mellitus with hyperglycemia; Z79.4 - nursing home (current) use of insulin (8) Hypothyroidism Qualifiers: Hypothyroidism type: unspecified Qualified Code(s): E03.9 - Hypothyroidism, unspecified (10) COPD (chronic obstructive pulmonary disease) Qualifiers: COPD type: unspecified COPD Qualified Code(s): J44.9 - Chronic obstructive pulmonary disease, unspecified (11) HTN (hypertension) Qualifiers: Hypertension type: essential hypertension Qualified Code(s): I10 - Essential (primary) hypertension (12) HLD (hyperlipidemia) Qualifiers: Hyperlipidemia type: pure hypercholesterolemia Qualified Code(s): E78.00 - Pure hypercholesterolemia, unspecified; E78.0 - Pure hypercholesterolemia
--- NOTE | 2018-05-03 09:39 | Electrocardiograph Report ---
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
--- NOTE | 2018-05-03 11:05 | Pulmonology Progress Note ---
<GrimesSteve Chayito - Last Filed: 05/03/18 13:23> Date of Encounter: 05/03/18 Time of Encounter: 11:02 Assessment and Plan (1) Pleural effusion Current Visit: Yes Status: Acute Loculated pleural effusion with chest tube in place Etiology uncertain, possibly multifactorial, patient has history of cirrhosis, CHF, CLL Last echo on 03/10/18 showed LVEF 50%, indeterminate diastolic dysfunction Pleural fluid analysis evaluated as exudative, cytology collected and cultures pending White count 5.5 from 3.9, patient afebrile, clinical condition improved Patient on continued Vanc/Zosyn regimen Patient is prescribed BiPAP at night but he has not been using it due to discomfort, he also has not been using it in the hospital He would likely benefit from BiPAP here and should also follow up outpatient for mask fit and setting titration -Chest tube clamped, will repeat Chest CT in 24hrs to evaluate fluid re- accumulation, can re-open if patients symptoms worsen -Monitor pleural fluid cytology and cultures -Recommend continued supportive care, duonebs, oral prednisone, IV lasix -Patients plan of care will likely depend on pleural fluid cytology to determine etiology, will continue to monitor Subjective Principal diagnosis: Pleural Effusion Interval history: Patient states his shortness of breath is greatly improved compared to last several days. He does complain of some hypoxia last night, however he is supposed to wear BiPAP at night and has not been. Review of systems otherwise negative. Chest tube documented 400ml drained since last check. Objective PUL Vital signs: Last Vital Signs Temp 97.3 F L 05/03/18 07:13 Pulse 92 05/03/18 07:13 Resp 19 05/03/18 07:44 BP 133/62 05/03/18 07:13 Pulse Ox 91 05/03/18 07:44 Patient in no acute distress, ventilating and oxygenating appropriately on 4L Alert and oriented x 3, follows commands Heart in regular rate and rhythm Lung sounds coarse and wet with rales present throughout except in right upper lung field Abdomen soft and non tender Skin warm and dry 1+ pitting edema in bilateral lower extremities Results - Laboratory Findings CBC and BMP: 05/03/18 04:58 05/03/18 04:58 ABG ABG pH 7.40 pH Units (7.32-7.45) 05/02/18 05:19 ABG pCO2 71 mmHg (35-45) H* 05/02/18 05:19 ABG pO2 58 mmHg (85-104) L 05/02/18 05:19 ABG O2 Saturation 88 % (95-98) L 05/02/18 05:19 PT/INR, D-dimer PT 12.7 Seconds (9.4-12.1) H 05/01/18 15:11 Abnormal lab findings: Abnormal lab results RBC 2.94 M/mcL (4.19-5.50) L 05/03/18 04:58 Hgb 8.8 g/dL (12.9-16.9) L 05/03/18 04:58 Hct 28.1 % (37.5-50.1) L 05/03/18 04:58 MCHC 31.3 g/dL (31.6-35.5) L 05/03/18 04:58 RDW 16.3 % (11.5-14.5) H 05/03/18 04:58 Plt Count 57 K/mcL (140-400) L 05/03/18 04:58 Nucleated RBCs/100 WBC 0.4 /100 WBC (0) H 05/03/18 04:58 PT 12.7 Seconds (9.4-12.1) H 05/01/18 15:11 APTT 36.8 Seconds (26.0-36.0) H 05/01/18 15:11 ABG pCO2 71 mmHg (35-45) H* 05/02/18 05:19 ABG pO2 58 mmHg (85-104) L 05/02/18 05:19 ABG HCO3 44 mEq/L (21-27) H 05/02/18 05:19 ABG Total CO2 46 mEq/L (20-26) H 05/02/18 05:19 ABG O2 Saturation 88 % (95-98) L 05/02/18 05:19 ABG Base Excess 16 mEq/L (-2 to 3) H 05/02/18 05:19 Carbon Dioxide 39 mEq/L (23-29) H 05/03/18 04:58 Glucose 135 mg/dL (70-105) H 05/03/18 04:58 POC Glucose 130 mg/dL (70-99) H 05/03/18 07:09 Hemoglobin A1c 7.3 % (-5.6) H 05/02/18 00:29 Lactic Acid 3.0 mmol/L (0.5-2.2) H 05/02/18 14:30 Phosphorus 2.3 mg/dL (2.7-4.5) L 05/02/18 00:29 Magnesium 1.5 mg/dL (1.6-2.6) L 05/02/18 00:29 Total Bilirubin 1.5 mg/dL (0.3-1.0) H 05/03/18 04:58 Ammonia 77 mcmol/L (16-53) H 05/01/18 17:55 B-Natriuretic Peptide 189 pg/mL (Less than 100) H 05/01/18 15:11 Serum Total Protein 5.6 g/dL (6.4-8.9) L 05/03/18 04:58 Globulin 2.1 g/dL (2.4-3.5) L 05/03/18 04:58 Triglycerides 360 mg/dL (< 150) H 05/02/18 00:29 VLDL Cholesterol, Calc 72 mg/dL (< 31) H 05/02/18 00:29 HDL Cholesterol 28 mg/dL (40-59) L 05/02/18 00:29 Cholesterol/HDL Ratio 5.8 (0-4.9) H 05/02/18 00:29 Pleural Appearance Hazy (Clear) A 05/01/18 18:50 - Microbiology Findings Microbiology Findings: Microbiology, Last 48 Hours 05/01/18 18:50 Body Fluid Culture - Preliminary Pleural Fluid 05/02/18 14:20 Blood Culture - Preliminary Peripheral Venipuncture Culture is incubating and being continuously monitored for growth. Final report to follow. 05/02/18 14:30 Blood Culture - Preliminary Peripheral Venipuncture Culture is incubating and being continuously monitored for growth. Final report to follow. - Clinical Findings Intake & Output: Intake & Output 05/02/18 05/03/18 05/03/18 23:59 07:59 15:59 Intake Total 1200 / 1200 100 / 100 240 / 240 Output Total 550 / 550 900 / 900 Balance 650 / 650 -800 / -800 240 / 240 Weight 114.3 kg Consult Discharge Plan - Plan Referrals: Derick Ellis DO [Primary Care Provider] - <Jose Juan Kumar - Last Filed: 05/03/18 20:22> Date of Encounter: 05/03/18 Objective PUL Vital signs: Last Vital Signs Temp 98.2 F 05/03/18 19:15 Pulse 102 05/03/18 19:15 Resp 18 05/03/18 19:15 BP 116/67 05/03/18 19:15 Pulse Ox 93 05/03/18 19:15 Results - Laboratory Findings CBC and BMP: 05/03/18 04:58 05/03/18 04:58 ABG ABG pH 7.40 pH Units (7.32-7.45) 05/02/18 05:19 ABG pCO2 71 mmHg (35-45) H* 05/02/18 05:19 ABG pO2 58 mmHg (85-104) L 05/02/18 05:19 ABG O2 Saturation 88 % (95-98) L 05/02/18 05:19 PT/INR, D-dimer PT 12.7 Seconds (9.4-12.1) H 05/01/18 15:11 Abnormal lab findings: Abnormal lab results RBC 2.94 M/mcL (4.19-5.50) L 05/03/18 04:58 Hgb 8.8 g/dL (12.9-16.9) L 05/03/18 04:58 Hct 28.1 % (37.5-50.1) L 05/03/18 04:58 MCHC 31.3 g/dL (31.6-35.5) L 05/03/18 04:58 RDW 16.3 % (11.5-14.5) H 05/03/18 04:58 Plt Count 57 K/mcL (140-400) L 05/03/18 04:58 Nucleated RBCs/100 WBC 0.4 /100 WBC (0) H 05/03/18 04:58 PT 12.7 Seconds (9.4-12.1) H 05/01/18 15:11 APTT 36.8 Seconds (26.0-36.0) H 05/01/18 15:11 ABG pCO2 71 mmHg (35-45) H* 05/02/18 05:19 ABG pO2 58 mmHg (85-104) L 05/02/18 05:19 ABG HCO3 44 mEq/L (21-27) H 05/02/18 05:19 ABG Total CO2 46 mEq/L (20-26) H 05/02/18 05:19 ABG O2 Saturation 88 % (95-98) L 05/02/18 05:19 ABG Base Excess 16 mEq/L (-2 to 3) H 05/02/18 05:19 Carbon Dioxide 39 mEq/L (23-29) H 05/03/18 04:58 Glucose 135 mg/dL (70-105) H 05/03/18 04:58 POC Glucose 205 mg/dL (70-99) H 05/03/18 11:16 Hemoglobin A1c 7.3 % (-5.6) H 05/02/18 00:29 Lactic Acid 3.0 mmol/L (0.5-2.2) H 05/02/18 14:30 Phosphorus 2.3 mg/dL (2.7-4.5) L 05/02/18 00:29 Magnesium 1.5 mg/dL (1.6-2.6) L 05/02/18 00:29 Total Bilirubin 1.5 mg/dL (0.3-1.0) H 05/03/18 04:58 Ammonia 77 mcmol/L (16-53) H 05/01/18 17:55 B-Natriuretic Peptide 189 pg/mL (Less than 100) H 05/01/18 15:11 Serum Total Protein 5.6 g/dL (6.4-8.9) L 05/03/18 04:58 Globulin 2.1 g/dL (2.4-3.5) L 05/03/18 04:58 Triglycerides 360 mg/dL (< 150) H 05/02/18 00:29 VLDL Cholesterol, Calc 72 mg/dL (< 31) H 05/02/18 00:29 HDL Cholesterol 28 mg/dL (40-59) L 05/02/18 00:29 Cholesterol/HDL Ratio 5.8 (0-4.9) H 05/02/18 00:29 Pleural Appearance Hazy (Clear) A 05/01/18 18:50 - Microbiology Findings Microbiology Findings: Microbiology, Last 48 Hours 05/01/18 18:50 Body Fluid Culture - Preliminary Pleural Fluid 05/02/18 14:20 Blood Culture - Preliminary Peripheral Venipuncture Culture is incubating and being continuously monitored for growth. Final report to follow. 05/02/18 14:30 Blood Culture - Preliminary Peripheral Venipuncture Culture is incubating and being continuously monitored for growth. Final report to follow. - Clinical Findings Intake & Output: Intake & Output 05/03/18 05/03/18 05/03/18 07:59 15:59 23:59 Intake Total 100 / 100 700 / 700 360 / 360 Output Total 900 / 900 475 / 475 500 / 500 Balance -800 / -800 225 / 225 -140 / -140 - Attending Attestation I saw and evaluated this patient and my medical decision-making was reviewed with the Resident Physician. I agree with the documented findings, disposition and treatment plan as described except to the extent set forth below. We independently had [id number] contact with the patient Patient seen and examined at bedside Labs, radiology, chart personally reviewed. [employer]ER ARMAMENT: Patient is conscious oriented no acute issues. Pulm: This loculated pleural effusion found to be exudative doubt it can be pseudo-exudative this patient on diuretics and with a background of cirrhosis, CHF late for pleural fluid cytology and cultures. Agree with broad-spectrum antibiotics for now.. Effusion can be we will trend sedated due to CHF/ cirrhosis possible complication due to superimposed infection. Cards: Patient is hemodynamically stable FEN-GI: Diet according to primary team.. Patient has cirrhosis with mild ascites Renal: Labs and output reviewed ID: To continue broad-spectrum antibiotics to repeat lactate Heme/Onc: CLL followed by oncology. Dispo: To continue Telemetry monitoring . CODE: Full Code
--- NOTE | 2018-05-03 12:24 | Gastroenterology Consult Note ---
<HdzLee grubbs - Last Filed: 05/03/18 12:22> Date of Encounter: 05/03/18 Time of Encounter: 10:50 - Assessment and plan (1) Cirrhosis Status: Chronic Assessment and plan: On admission MELD-Na 10, Child-Kenny class A. Continue Aldactone and Lasix. Titrate Lactulose for 2-4 BMs per day. Check AFP, last was 4 on 05/22/2017. Lifestyle Changes: 1. Total abstinence from alcohol including social drinking. 2. No smoking. 3. Gradual loss of weight. 4. Drink at least 3 cups of coffee due to its antioxidant effects in the liver, it reduces risk of HCC and advance fibrosis. 5. If needed, use less than 2 g/day of Tylenol (in divided doses). 6. Vaccination for Hep A, B, Pneumococcus if not already received and yearly influenza vaccination by PCP. 7. Avoid NSAIDS as can cause kidney damage. 8. Avoid benzodiazepines and other sedatives such as anti-histamines, narcotics etc. as can cause encephalopathy or confusion. 9. Take a late carbohydrate meal supplement as it reduces glucose production from protein breakdown and thus improves nutrition. 10. In cirrhosis, statins are safe to use and also improve portal hypertension and decrease risk of HCC. Qualifiers: Hepatic cirrhosis type: other cirrhosis Qualified Code(s): K74.69 - Other cirrhosis of liver (2) Thrombocytopenia Status: Acute Assessment and plan: Secondary to cirrhosis. - Time Spent With Patient Total time spent is greater than 50% in coordination of care (as documented) at patient's floor/unit and/or counseling patient: GI History of Present Illness - Data of Consult Patient: known to practice within the last 3 years Consult date: 05/03/18 Requesting Physician: Benja Hanson - Consult Narrative Reason for consult: Hx of Cirrhosis History of present illness: Mr. Fnag is a 58 year old male with PMHx of CLL, CHF, COPD, DM, GERD, HLD, HTN , ID, esophageal varices, cirrhosis. He presented to the ED with c/o shortness of breath and dyspnea for 3 days prior to admission. The patient had been admitted to [facility] and was placed in the ICU with intubation in February for possible STEMI, pneumonia and pleural effusions but was successfully extubated and was discharged on 03/19. On this current admission, the patient was found to have significant pleural effusions on chest x-ray, with near complete white out of the left. The patient underwent ultrasound-guided thoracentesis and then underwent ultrasound-guided chest tube insertion. We were consulted to evaluate history of cirrhosis. He has been having 1-2 BMs daily. On 03/10/18, MELD-Na 21, Child-Kenny class B. RUQ US on 03/09/2018 showed cholelithiasis with nonspecific gallbladder wall thickening, which could be secondary to liver disease and not cholecystitis, and cirrhosis with stigmata of portal hypertension. Procedures: EGD 03/02/2018 Dr. Masters: Grade I varices, scars of previous banding, 35 mm polyp in the stomach benign, moderate to severe portal htb gastropathy, repeat EGD in 1 year. Colonoscopy 07/15/2017 Dr. Brown: Diverticulosis, two hypeplastic polyps. EGD 12/24/2016 Dr. Masters: Grade I varices, severe portal htn gastropathy, inflamed hyperplastic gastric polyp/benign; repeat EGD 1 year. EGD 07/30/2016 Dr. Masters: Grade 2 varices, portal htn gastropathy. EGD 06/13/2016 Dr. Masters: Grade 2 varices incompletely eradicated; gastric polyps ; portal htn gastropathy. Colonoscopy 03/26/2016 Dr. Brown: Enlarged prostate, diverticulosis, rectal varices, tubular adenoma and hyperplastic polyp. Colonoscopy 05/09/2015 Dr. Brown: Diverticulosis, multiple tubular adenoma and hyperplastic polyps. NSAIDs: ASA Anticoagulation: None Past Med Surg Social Fam HX - Past Medical History Medical history: cancer (CLL), cirrhosis, CHF, COPD, diabetes, GERD, hyperlipidemia, hypertension, kidney stones, myocardial infarction Additional medical history: morbid obesity with BMI of 45-49 adult. history of colon polyps. stomach polyp removed. esophageal varicies banded. lymphatic leukemia Psychiatric history: depression - Past Surgical History Surgical History: LE stent(s) Additional surgical history: Hernia repair. Kidney stones. esophageal varicies. stomach polyp removed and clamp placed - Social History Smoking Status: Former smoker Packs per day: 1.5 - 2 PPD: Reports quitting in 2005 Smokeless Tobacco Status: No Alcohol use: none Drug use: none - Family History Mother Race: Family Member Ethnicity: Non- Living Status: Age at : 51 Cause of : COPD Hx Family Respiratory Disorders: Yes (COPD) Father Race: Family Member Ethnicity: Non- Living Status: Age at : 68 Cause of : Small cell lung cancer Hx Family Cancer: Yes (Small cell lung & Throat) Brother Race: Family Member Ethnicity: Non- Living Status: Age at : 42 Cause of : Suicide Sister Race: Family Member Ethnicity: Non- Living Status: Age at : 63 Cause of : COPD Hx Family Respiratory Disorders: Yes (COPD) - Gastrointestinal Gastrointestinal: Present: as per HPI - Constitutional Constitutional: as per HPI - EENT Eyes: as per HPI Ears: Present: as per HPI Nose, mouth and throat: Present: as per HPI - Cardiovascular Cardiovascular ROS: Present: as per HPI - Respiratory Respiratory IM: Present: as per HPI - Genitourinary Genitourinary: Absent: change in color, Urinary frequency - Neurological ROS Neurological GI: Present: as per HPI - Hematologic/Lymphatic Hematologic/Lymphatic pediatric: Present: as per HPI - Musculoskeletal Musculoskeletal ROS GI: Present: as per HPI - Integumentary Integumentary GI: Present: as per HPI - Psychiatric ROS Psychiatric GI: Present: as per HPI - Endocrine Endocrine IM: Present: as per HPI - Constitutional Vitals: Temp Pulse Resp BP Pulse Ox 97.5 F L 84 18 130/65 95 05/03/18 11:19 05/03/18 11:19 05/03/18 11:19 05/03/18 11:19 05/03/18 11:19 General appearance: Present: cooperative, A&O X 3, no acute distress, answers questions appropriately - Head Head exam: Present: atraumatic, normocephalic - Eye Eye exam: Present: normal appearance, sclera anicteric - ENT ENT exam: Present: mucous membranes moist - Neck Neck exam general surgery: Present: normal inspection, trachea midline - Respiratory Respiratory exam: Present: CTAB. Absent: rales, rhonchi - Cardiovascular Cardiovascular exam: Present: RRR, +S1, +S2 - GI/Abdominal GI/Abdominal exam: Present: soft, no peritoneal signs. Absent: distended, firm , guarding, tenderness - Rectal Rectal exam: Present: deferred - Extremities Exam Extremities exam: Present: warm - Neurological Exam Neurological exam: Present: no focal deficits - Psychiatric Psychiatric exam: Present: normal affect, normal mood - Skin Skin exam: Present: dry, intact, normal color, warm Results - Labs CBC & Chem 7: 05/03/18 04:58 05/03/18 04:58 Labs: Last Result Calcium 8.8 mg/dL (8.6-10.3) 05/03/18 04:58 Troponin I < 0.03 ng/mL (< 0.04) 05/01/18 15:11 Triglycerides 360 mg/dL (< 150) H 05/02/18 00:29 Entire Visit Hgb 8.8 g/dL (12.9-16.9) L 05/03/18 04:58 Hct 28.1 % (37.5-50.1) L 05/03/18 04:58 PT 12.7 Seconds (9.4-12.1) H 05/01/18 15:11 Total Bilirubin 1.5 mg/dL (0.3-1.0) H 05/03/18 04:58 AST 21 Units/L (13-39) 05/03/18 04:58 ALT 14 Units/L (7-52) 05/03/18 04:58 Ammonia 77 mcmol/L (16-53) H 05/01/18 17:55 - ABG ABG results: ABG ABG pH 7.40 pH Units (7.32-7.45) 05/02/18 05:19 ABG pCO2 71 mmHg (35-45) H* 05/02/18 05:19 ABG pO2 58 mmHg (85-104) L 05/02/18 05:19 ABG O2 Saturation 88 % (95-98) L 05/02/18 05:19 PT/INR, D-dimer PT 12.7 Seconds (9.4-12.1) H 05/01/18 15:11 Consult Discharge Plan - Plan Instructions: Seasoning Without Salt (DC), Seasoning Without Salt (GEN), DASH Eating Plan (DC), DASH Eating Plan (GEN), Low Sodium Diet (DC), Low Sodium Diet (GEN) Referrals: Jose Juan Kumar MD [Partnered Physician] - (web requested tarah will call you within 1-2 weeks) Rhonda,Derick D, DO [Primary Care Provider] - 05/20/18 3:00 pm (Please follow up as schedule...) <Chaparro Floyd - Last Filed: 05/11/18 06:41> Date of Encounter: 05/03/18 - Time Spent With Patient Total time spent is greater than 50% in coordination of care (as documented) at patient's floor/unit and/or counseling patient: GI History of Present Illness - Data of Consult Requesting Physician: Benja Hanson - Consult Narrative History of present illness: Mr. Fang is a 58 year old male - Constitutional Vitals: Temp Pulse Resp BP Pulse Ox 97.7 F 88 18 138/77 91 05/06/18 15:24 05/06/18 15:24 05/06/18 16:01 05/06/18 15:24 05/06/18 16:01 Results - Labs CBC & Chem 7: 05/06/18 02:52 05/06/18 02:52 Labs: Last Result Calcium 8.3 mg/dL (8.6-10.3) L 05/06/18 02:52 Troponin I < 0.03 ng/mL (< 0.04) 05/01/18 15:11 Triglycerides 360 mg/dL (< 150) H 05/02/18 00:29 Entire Visit Hgb 7.7 g/dL (12.9-16.9) L 05/06/18 02:52 Hct 25.1 % (37.5-50.1) L 05/06/18 02:52 PT 12.7 Seconds (9.4-12.1) H 05/01/18 15:11 Total Bilirubin 1.1 mg/dL (0.3-1.0) H 05/06/18 02:52 AST 37 Units/L (13-39) 05/06/18 02:52 ALT 32 Units/L (7-52) 05/06/18 02:52 Ammonia 77 mcmol/L (16-53) H 05/05/18 06:16 - ABG ABG results: ABG ABG pH 7.40 pH Units (7.32-7.45) 05/02/18 05:19 ABG pCO2 71 mmHg (35-45) H* 05/02/18 05:19 ABG pO2 58 mmHg (85-104) L 05/02/18 05:19 ABG O2 Saturation 88 % (95-98) L 05/02/18 05:19 PT/INR, D-dimer PT 12.7 Seconds (9.4-12.1) H 05/01/18 15:11 - Attending Attestation I have personally performed a face to face evaluation on this patient. I have reviewed and agree with the care plan. History and Exam by me shows:
--- NOTE | 2018-05-03 13:33 | Event Note ---
Date of Encounter: 05/03/18 Time of Encounter: 13:29 Mr. Fang is a patient of Dr. Murray with CLL/SLL diagnosed in 2006, prior treatment history summarized in Dr. Murray's medical oncology progress note, most recently his Ibrutinib was stopped per patient request on 11/16/17. At his most recent office visit with Dr. Murray on 03/25/2018, he was planned to have continued lab monitoring over the next month and we would consider restarting his Ibrutinib (or new therapy such as Venetoclax) if his pancytopenia worsened or did not improve. He was planned to follow up as an outpatient on 05/06-this may be pushed back dependant upon his course of hospitalization. He has been admitted with recurrent loculated pleural effusions with chest tube in place, pulmonology has been consulted. His cytology from his initial thoracentesis on 04/21 has revealed "Reactive mesothelial cells, few atypical cells inflammatory cells and macrophages seen." Cytology from his second thoracentesis on 05/01/18 is still pending. Suspect etiology is multifactorial with history of cirrhosis/CHF and potentially superimposed infection. Will not plan on starting any treatment in regards to patients CLL/SSL as an inpatient at this time, will continue to trend labs on an outpatient basis once his acute infectious/inflammatory process improves. Will arrange for outpatient follow up following discharge and otherwise sign off. Should his pending cytology return malignant or any other concern arise, please re-consult.
[2018-05-03] MEDS: ALPRAZolam 1 MG TABLET PO PRN (22:19)
[2018-05-04 02:09] LABS: Basophils % 0.3 %; Lymphocytes % 18.3 %
[2018-05-04 02:11] LABS: Eosinophils # 0.1 K/mcL (0.0-0.6); Eosinophils % 2.1 %; Immature Granulocytes % 1.5 % (0-4); Immature Platelets 2.6 % (1.1-6.1); Lymphocytes # 0.6 K/mcL (0.6-4.6); Mean Corpuscular HGB Conc 30.8 g/dL (31.6-35.5); Mean Corpuscular Hemoglobin 29.5 pg (28.0-33.3); Mean Corpuscular Volume 95.9 fL (83.0-100.0); Mean Platelet Volume 9.1 fL (9.4-12.4); Monocytes # 0.4 K/mcL (0.0-1.3); Monocytes % 11.3 %; Neutrophils # 2.2 K/mcL (1.6-8.9); Nucleated Red Blood Cells 0.6 /100 WBC (0); Red Blood Count 2.71 M/mcL (4.19-5.50); Red Cell Distribution Width 16.5 % (11.5-14.5); Segmented Neutrophils % 66.5 %
[2018-05-04 02:12] LABS: Platelet Count 61 K/mcL (140-400)
[2018-05-04 02:27] LABS: Alanine Aminotransferase 15 Units/L (7-52); Albumin 3.4 g/dL (3.5-5.7); Albumin/Globulin Ratio 1.9 (1.1-2.2); Alkaline Phosphatase 106 Units/L (34-104); Aspartate Amino Transferase 16 Units/L (13-39); BUN/Creatinine Ratio 14 (6-26); Bilirubin,Total 1.3 mg/dL (0.3-1.0); Blood Urea Nitrogen 16 mg/dL (6-20); Calcium 8.7 mg/dL (8.6-10.3); Carbon Dioxide 42 mEq/L (23-29); Chloride 95 mEq/L (98-107); Globulin 1.8 g/dL (2.4-3.5); Glucose 234 mg/dL (70-105); Osmolality,Calculated 299 (280-300); Sodium 140 mEq/L (136-145); Total Protein 5.2 g/dL (6.4-8.9); eGFR For Non-African Americans > 60 (> 60)
[2018-05-04] MEDS: Ipratropium/Albuterol Neb 3 ML IH SCH ×6 (04:02→23:08)
[2018-05-04] MEDS: Piperacillin/Tazobactam 3.375 GM in 0.9 % Sodium Chloride Mini Bag 100 ML IVPB SCH ×3 (07:05→22:37)
[2018-05-04] MEDS: Sucralfate 1 GM TABLET PO SCH ×3 (07:57→16:56)
[2018-05-04] MEDS: Aspirin 81 MG TAB.CHEW PO SCH (07:57)
[2018-05-04] MEDS: Gabapentin 300 MG CAPSULE PO SCH ×2 (07:57→20:13)
[2018-05-04] MEDS: predniSONE 20 MG TABLET PO SCH (07:57)
[2018-05-04] MEDS: Furosemide 20 MG/2 ML VIAL IVP SCH ×2 (07:57→16:56)
[2018-05-04] MEDS: Lactulose Oral Soln 20 GM/30 ML UDC PO SCH ×3 (07:58→20:13)
[2018-05-04] MEDS: Insulin LISPRO 300 UNITS/3 ML VIAL SQ SCH ×7 (07:58→20:14)
[2018-05-04] MEDS: Insulin DETEMIR 100 UNIT/ML X5UNITS SQ SCH ×2 (07:58→20:13)
--- NOTE | 2018-05-04 10:31 | Internal Med Progress Note ---
Hospitalist Progress Note - Encounter Date of Encounter: 05/04/18 Time of Encounter: 10:28 - Subjective Interval History: Patient seen and examined at bedside. Patient no overnight events. Patient's chest tube was clamped yesterday and the patient is not presenting any respiratory distress. Patient states that his breathing feels back to baseline at rest; however the patient states that he does get somewhat short of breath laying flat and is still more short of breath with exertion than he typically is at home. Patient denies any chest pain, nausea, vomiting, diarrhea. Patient 's been afebrile. Awaiting CT of the chest morning. - Exam Vitals: Temp Pulse Resp BP Pulse Ox 98.9 F 81 18 120/64 93 05/04/18 06:47 05/04/18 06:47 05/04/18 06:47 05/04/18 06:47 05/04/18 06:47 Exam: Constitutional: No acute distress, Alert Psych: AAO x 3 HEENT: NCAT, EOMI Neck: supple, no JVD Cardio: regular rate and rhythm, +s1s2, no murmurs/rubs/gallops, no JVD Resp: Positive crackles bilateral bases, good air movement throughout, left chest tube currently clamped with no surrounding erythema Abd: Protuberant,soft, non tender/non distended, positive bowel sounds, no gaurding/reboud/ridgitity Extremities: no clubbing/cyanosis/edema appreciated Neuro: no focal deficits appreciated - Assessment and Plan (1) Sepsis Current Visit: Yes Status: Acute Assessment and Plan: -Met sepsis criteria with tachycardia, hypotension and tachypnea Suspected source pneumonia; -sepsis resolved -chest CT showed patchy opacities in left upper and lower lobes -No elevated WBC but hx of pancytopenia -Lactic acid peaked at 4.6 and trended down. -Afebrile and does not appear acute or toxic. -ATB coverage broadened to Vanco and zosyn. -No IV fluids with fluid overload and pleural effusions. -Blood cx's pending but negative to date (2) Pleural effusion Current Visit: Yes Status: Acute Assessment and Plan: -Recurrent pleural effusion of left thorax -Likely multifactorial with history of cirrhosis, current decompensated heart failure, possible pneumonia, and CLL history -S/p left thoracentesis 04/21/18 with removal of 1500 mL at that time. Fluid cytology showed reactive mesothelial cells. -CXR showed complete opacification of the left hemithorax, worsened since , right lung demonstrates a small pleural effusion. -S/p CT placement per IR. -Repeat CT of chest today -Chest tube clamped yesterday -Continue IV diuresis. -Pulmonology following; appreciate recs -cytology pending -follow cultures (3) CLL (chronic lymphocytic leukemia) Current Visit: Yes Status: Chronic Assessment and Plan: per hx. Follows with Dr. Murray. With persistent pancytopenia secondary to CLL. -Last seen by oncology 02/2018 who recommended starting Ibrutnib if pancytopenia persist. -Labwork consistent with pancytopenia but appears to be stable since 02/2018 oncology evaluation. -No active bleeding. -Monitor CBC. -Oncology Appointment scheduled for 05/06/18 (4) Type 2 diabetes mellitus Current Visit: Yes Status: Chronic Assessment and Plan: Holding home metformin. -BG continues to be elevated -Cont home long acting and prandial coverage. -Increase Levemir to 60 units twice a day -Increase meal lispro to 25 units 3 times a day with meals -Continue sliding scale coverage -Monitor Accu-Cheks and adjust accordingly (5) Cirrhosis Current Visit: Yes Status: Chronic Assessment and Plan: -hx non-alcoholic cirrhosis. -ABD US without ascites, no paracentesis indicated. -Patient did have an episode of hepatic encephalopathy during 03/09/18 admission. -LFTS stable, ammonia 106 -Albumin and INR normal. -Cont lactulose. -continue aldactone -continue lasix; likely transition to PO tomorrow -GI recs appreciated (6) Esophageal varices without bleeding Current Visit: Yes Status: Chronic Assessment and Plan: -hx of esophageal varices without bleeding. -Varices previously banded. -Cont home BB (7) Hypothyroidism Current Visit: Yes Status: Chronic Assessment and Plan: Continue home medication (8) CHF (congestive heart failure) Current Visit: Yes Status: Chronic Assessment and Plan: -Acute on chronic exacerbation of congestive heart failure with preserved ejection fraction/diastolic dysfunction -nearly compensated -02/2018 TTE with EF 50% and indeterminate diastolic dysfunction. -Patient was clinically volume overloaded on admission and has been getting twice a day diuresis. -Patient continues to have mild orthopnea and dyspnea on exertion however this is improving and the patient states that his respiratory status is near his baseline -Continue home Aldactone. -Continue IV diuresis. Likely change to by mouth diuretic tomorrow -Strict I&O, daily weights. Patient with -1 L volume balance however the patient voiding on own and may not be accurate (9) COPD (chronic obstructive pulmonary disease) Current Visit: Yes Status: Chronic Assessment and Plan: -COPD with chronic respiratory failure; wears O2 continously at home; no acute exacerbation -Received one-time dose IV steroids and -No wheezing; will wean steroids. -Cont supplemental O2. -Wean to home dose as able. (10) HTN (hypertension) Current Visit: Yes Status: Chronic Assessment and Plan: -Continue home BP medication. -Monitor BP and titrate PRN (11) HLD (hyperlipidemia) Current Visit: Yes Status: Chronic Assessment and Plan: -Cont home statin (12) Hypercapnia Current Visit: Yes Status: Acute Assessment and Plan: Patient with chronic hypercapnic respiratory failure -Compensated appropriately -We will monitor with diuresis (13) CAD (coronary artery disease), [place] coronary artery Current Visit: Yes Status: Acute Assessment and Plan: -[place] CAD, prior PCI. 02/2018 TTE with preserved LVEF. -Troponins mildly elevated during 02/2018 admission and he was evaluated by Cardiology at that time who did not recommend LHC due to thrombocytopenia. -Denies chest pain. -Cont ASA, BB, statin - Time Spent with Patient Total time spent is greater than 50% in coordination of care (as documented) at patient's floor/unit and/or counseling patient: Internal Medicine: Result - Labs CBC & Chem 7: 05/04/18 01:52 05/04/18 01:52 Labs: Short CBC 05/04/18 Range/Units 01:52 WBC 3.3 L (4.3-11.1) K/mcL Hgb 8.0 L (12.9-16.9) g/dL Hct 26.0 L (37.5-50.1) % Plt Count 61 L (140-400) K/mcL Neutrophils # 2.2 (1.6-8.9) K/mcL BMP 05/04/18 01:52 Sodium 140 Potassium 4.0 Chloride 95 L Carbon Dioxide 42 H* BUN 16 Creatinine 1.18 Glucose 234 H Calcium 8.7 Liver Function 05/04/18 Range/Units 01:52 Total Bilirubin 1.3 H (0.3-1.0) mg/dL AST 16 (13-39) Units/L ALT 15 (7-52) Units/L Alkaline Phosphatase 106 H (34-104) Units/L Albumin 3.4 L (3.5-5.7) g/dL - ABG Interpretation ABG results: ABG ABG pH 7.40 pH Units (7.32-7.45) 05/02/18 05:19 ABG pCO2 71 mmHg (35-45) H* 05/02/18 05:19 ABG pO2 58 mmHg (85-104) L 05/02/18 05:19 ABG O2 Saturation 88 % (95-98) L 05/02/18 05:19 PT/INR, D-dimer PT 12.7 Seconds (9.4-12.1) H 05/01/18 15:11 - Impressions Impressions Chest X-Ray 05/03/18 20:15 IMPRESSION: 1. Improving left-sided pleuroparenchymal disease. 2. New right basilar atelectasis or pneumonia. 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 (5) Cirrhosis Qualifiers: Hepatic cirrhosis type: other cirrhosis Qualified Code(s): K74.69 - Other cirrhosis of liver (6) Esophageal varices without bleeding Qualifiers: Esophageal varices type: secondary Qualified Code(s): I85.10 - Secondary esophageal varices without bleeding (7) Hypothyroidism Qualifiers: Hypothyroidism type: unspecified Qualified Code(s): E03.9 - Hypothyroidism, unspecified (8) CHF (congestive heart failure) Qualifiers: Heart failure type: diastolic Heart failure chronicity: chronic Qualified Code(s): I50.32 - Chronic diastolic (congestive) heart failure (9) COPD (chronic obstructive pulmonary disease) Qualifiers: COPD type: unspecified COPD Qualified Code(s): J44.9 - Chronic obstructive pulmonary disease, unspecified (10) HTN (hypertension) Qualifiers: Hypertension type: essential hypertension Qualified Code(s): I10 - Essential (primary) hypertension (11) HLD (hyperlipidemia) Qualifiers: Hyperlipidemia type: pure hypercholesterolemia Qualified Code(s): E78.00 - Pure hypercholesterolemia, unspecified; E78.0 - Pure hypercholesterolemia
[2018-05-04] MEDS ORDERED: Insulin DETEMIR 100 UNIT/ML X5UNITS SQ ONE (10:36)
--- NOTE | 2018-05-04 10:49 | Pulmonology Progress Note ---
<SandroadenikekarenJose Juan S - Last Filed: 05/04/18 15:17> Date of Encounter: 05/04/18 Objective PUL Vital signs: Last Vital Signs Temp 98.4 F 05/04/18 11:07 Pulse 84 05/04/18 11:07 Resp 18 05/04/18 11:07 BP 104/58 05/04/18 11:07 Pulse Ox 92 05/04/18 11:07 Results - Laboratory Findings CBC and BMP: 05/04/18 01:52 05/04/18 01:52 ABG ABG pH 7.40 pH Units (7.32-7.45) 05/02/18 05:19 ABG pCO2 71 mmHg (35-45) H* 05/02/18 05:19 ABG pO2 58 mmHg (85-104) L 05/02/18 05:19 ABG O2 Saturation 88 % (95-98) L 05/02/18 05:19 PT/INR, D-dimer PT 12.7 Seconds (9.4-12.1) H 05/01/18 15:11 Abnormal lab findings: Abnormal lab results WBC 3.3 K/mcL (4.3-11.1) L 05/04/18 01:52 RBC 2.71 M/mcL (4.19-5.50) L 05/04/18 01:52 Hgb 8.0 g/dL (12.9-16.9) L 05/04/18 01:52 Hct 26.0 % (37.5-50.1) L 05/04/18 01:52 MCHC 30.8 g/dL (31.6-35.5) L 05/04/18 01:52 RDW 16.5 % (11.5-14.5) H 05/04/18 01:52 Plt Count 61 K/mcL (140-400) L 05/04/18 01:52 MPV 9.1 fL (9.4-12.4) L 05/04/18 01:52 Nucleated RBCs/100 WBC 0.6 /100 WBC (0) H 05/04/18 01:52 PT 12.7 Seconds (9.4-12.1) H 05/01/18 15:11 APTT 36.8 Seconds (26.0-36.0) H 05/01/18 15:11 ABG pCO2 71 mmHg (35-45) H* 05/02/18 05:19 ABG pO2 58 mmHg (85-104) L 05/02/18 05:19 ABG HCO3 44 mEq/L (21-27) H 05/02/18 05:19 ABG Total CO2 46 mEq/L (20-26) H 05/02/18 05:19 ABG O2 Saturation 88 % (95-98) L 05/02/18 05:19 ABG Base Excess 16 mEq/L (-2 to 3) H 05/02/18 05:19 Chloride 95 mEq/L (98-107) L 05/04/18 01:52 Carbon Dioxide 42 mEq/L (23-29) H* 05/04/18 01:52 Glucose 234 mg/dL (70-105) H 05/04/18 01:52 POC Glucose 423 mg/dL (70-99) H* 05/03/18 19:10 Hemoglobin A1c 7.3 % (-5.6) H 05/02/18 00:29 Phosphorus 2.3 mg/dL (2.7-4.5) L 05/02/18 00:29 Magnesium 1.5 mg/dL (1.6-2.6) L 05/02/18 00:29 Total Bilirubin 1.3 mg/dL (0.3-1.0) H 05/04/18 01:52 Alkaline Phosphatase 106 Units/L (34-104) H 05/04/18 01:52 Ammonia 64 mcmol/L (16-53) H 05/04/18 01:52 B-Natriuretic Peptide 189 pg/mL (Less than 100) H 05/01/18 15:11 Serum Total Protein 5.2 g/dL (6.4-8.9) L 05/04/18 01:52 Albumin 3.4 g/dL (3.5-5.7) L 05/04/18 01:52 Globulin 1.8 g/dL (2.4-3.5) L 05/04/18 01:52 Triglycerides 360 mg/dL (< 150) H 05/02/18 00:29 VLDL Cholesterol, Calc 72 mg/dL (< 31) H 05/02/18 00:29 HDL Cholesterol 28 mg/dL (40-59) L 05/02/18 00:29 Cholesterol/HDL Ratio 5.8 (0-4.9) H 05/02/18 00:29 Pleural Appearance Hazy (Clear) A 05/01/18 18:50 Vancomycin Trough 16 mcg/mL (5-10) H 05/04/18 01:52 - Microbiology Findings Microbiology Findings: Microbiology, Last 48 Hours 05/01/18 18:50 Body Fluid Culture - Preliminary Pleural Fluid 05/02/18 14:20 Blood Culture - Preliminary Peripheral Venipuncture Culture is incubating and being continuously monitored for growth. Final report to follow. 05/02/18 14:30 Blood Culture - Preliminary Peripheral Venipuncture Culture is incubating and being continuously monitored for growth. Final report to follow. - Clinical Findings Intake & Output: Intake & Output 05/03/18 05/04/18 05/04/18 23:59 07:59 15:59 Intake Total 460 / 460 350 / 350 820 / 820 Output Total 500 / 500 900 / 900 Balance -40 / -40 350 / 350 -80 / -80 Weight 115.6 kg Consult Discharge Plan - Plan Referrals: Derick Ellis DO [Primary Care Provider] - - Attending Attestation I saw and evaluated this patient and my medical decision-making was reviewed with the Resident Physician. I agree with the documented findings, disposition and treatment plan as described except to the extent set forth below. We independently had [id number] contact with the patient Patient seen and examined at bedside Labs, radiology, chart personally reviewed. QUALITY IMPROVEMENT COORDINATOR (RN): Conscious oriented 3 following commands Pulm: Patient V/Q mismatch is acceptable his pleural effusion and the repeat CT chest is lot better pneumothorax is lot better is still has the residual infiltrates and the collapse of the partial left lower lobe collapse is currently chronic at this point we will remove the chest tube probably tomorrow and see if the pleural effusion recurs if it recurs he will need a Pleurx catheter <Mickey Good - Last Filed: 05/04/18 19:06> Date of Encounter: 05/04/18 Time of Encounter: 09:30 Assessment and Plan (1) Pleural effusion Current Visit: Yes Status: Acute - patient has a history of recurrent pleural effusion. currently it is a loculated pleural effusion - the pleural effusion could be secondary to his multiple co-morbidities like liver cirrhosis (MEDL score : 10, Child Kenny Class A) , CHF (Echo: 5% as of 2017), Hx of malignancy (CLL) - pleural fluid has been drained . Pleural fluid was exudative (Plueral protein / Serum protein > 0.5) and we are awaiting the cytology results - he is s/p chest placement per IR. His tube was clamped yesterday midnight but was opened today . - he continues to get IV lasix, steroids (prednisone 20mg PO) - most recent Chest CT showed Stable position of left pigtail drainage catheter with small left hydropneumothorax as on the previous exam - with these CT findings of no progressive pleural effusion, we can potential get his chest tube out - in future if the he continuos to show fluidup, he might potentially need the Pleurax Catheter Subjective Principal diagnosis: Pleural Effusion Interval history: no acute events overnight. Patient is s/ p chest tube placement (on 11/29/2017) for his pleural effusion. He had his chest tube clamped yesterday. Today the patient appears to be in no acute distress. He denies any SOB, chest pain, cough or palpitations. We are also awaiting results from the cytology of his pleural fluid. The cytology of the pleural fluid during his last admission showed reactive mesothelial cells. His chest tube has drained 650m L since yesterday midnight. The most recent CT did not show any increase in his pleural fluid. Objective PUL Vital signs: Last Vital Signs Temp 98.9 F 05/04/18 06:47 Pulse 81 05/04/18 06:47 Resp 18 05/04/18 06:47 BP 120/64 05/04/18 06:47 Pulse Ox 93 05/04/18 06:47 General appearance: no acute distress (good mentation , A&O*3) Auscultation: left: diminished breath sounds (no wheezing ronchi or rales no SOB ) Cardiovascular: regular rate and rhythm (no gallops, murmurs or rubs) Gastrointestinal: soft, non-tender, non-distended Results - Laboratory Findings CBC and BMP: 05/04/18 01:52 05/04/18 01:52 ABG ABG pH 7.40 pH Units (7.32-7.45) 05/02/18 05:19 ABG pCO2 71 mmHg (35-45) H* 05/02/18 05:19 ABG pO2 58 mmHg (85-104) L 05/02/18 05:19 ABG O2 Saturation 88 % (95-98) L 05/02/18 05:19 PT/INR, D-dimer PT 12.7 Seconds (9.4-12.1) H 05/01/18 15:11 Abnormal lab findings: Abnormal lab results WBC 3.3 K/mcL (4.3-11.1) L 05/04/18 01:52 RBC 2.71 M/mcL (4.19-5.50) L 05/04/18 01:52 Hgb 8.0 g/dL (12.9-16.9) L 05/04/18 01:52 Hct 26.0 % (37.5-50.1) L 05/04/18 01:52 MCHC 30.8 g/dL (31.6-35.5) L 05/04/18 01:52 RDW 16.5 % (11.5-14.5) H 05/04/18 01:52 Plt Count 61 K/mcL (140-400) L 05/04/18 01:52 MPV 9.1 fL (9.4-12.4) L 05/04/18 01:52 Nucleated RBCs/100 WBC 0.6 /100 WBC (0) H 05/04/18 01:52 PT 12.7 Seconds (9.4-12.1) H 05/01/18 15:11 APTT 36.8 Seconds (26.0-36.0) H 05/01/18 15:11 ABG pCO2 71 mmHg (35-45) H* 05/02/18 05:19 ABG pO2 58 mmHg (85-104) L 05/02/18 05:19 ABG HCO3 44 mEq/L (21-27) H 05/02/18 05:19 ABG Total CO2 46 mEq/L (20-26) H 05/02/18 05:19 ABG O2 Saturation 88 % (95-98) L 05/02/18 05:19 ABG Base Excess 16 mEq/L (-2 to 3) H 05/02/18 05:19 Chloride 95 mEq/L (98-107) L 05/04/18 01:52 Carbon Dioxide 42 mEq/L (23-29) H* 05/04/18 01:52 Glucose 234 mg/dL (70-105) H 05/04/18 01:52 POC Glucose 423 mg/dL (70-99) H* 05/03/18 19:10 Hemoglobin A1c 7.3 % (-5.6) H 05/02/18 00:29 Phosphorus 2.3 mg/dL (2.7-4.5) L 05/02/18 00:29 Magnesium 1.5 mg/dL (1.6-2.6) L 05/02/18 00:29 Total Bilirubin 1.3 mg/dL (0.3-1.0) H 05/04/18 01:52 Alkaline Phosphatase 106 Units/L (34-104) H 05/04/18 01:52 Ammonia 64 mcmol/L (16-53) H 05/04/18 01:52 B-Natriuretic Peptide 189 pg/mL (Less than 100) H 05/01/18 15:11 Serum Total Protein 5.2 g/dL (6.4-8.9) L 05/04/18 01:52 Albumin 3.4 g/dL (3.5-5.7) L 05/04/18 01:52 Globulin 1.8 g/dL (2.4-3.5) L 05/04/18 01:52 Triglycerides 360 mg/dL (< 150) H 05/02/18 00:29 VLDL Cholesterol, Calc 72 mg/dL (< 31) H 05/02/18 00:29 HDL Cholesterol 28 mg/dL (40-59) L 05/02/18 00:29 Cholesterol/HDL Ratio 5.8 (0-4.9) H 05/02/18 00:29 Pleural Appearance Hazy (Clear) A 05/01/18 18:50 Vancomycin Trough 16 mcg/mL (5-10) H 05/04/18 01:52 - Microbiology Findings Microbiology Findings: Microbiology, Last 48 Hours 05/01/18 18:50 Body Fluid Culture - Preliminary Pleural Fluid 05/02/18 14:20 Blood Culture - Preliminary Peripheral Venipuncture Culture is incubating and being continuously monitored for growth. Final report to follow. 05/02/18 14:30 Blood Culture - Preliminary Peripheral Venipuncture Culture is incubating and being continuously monitored for growth. Final report to follow. - Clinical Findings Intake & Output: Intake & Output 05/03/18 05/04/1818 23:59 07:59 15:59 Intake Total 460 / 460 350 / 350 480 / 480 Output Total 500 / 500 Balance -40 / -40 350 / 350 480 / 480 Weight 115.6 kg
[2018-05-04] MEDS: ALPRAZolam 1 MG TABLET PO PRN (20:13)
[2018-05-05] MEDS: Ipratropium/Albuterol Neb 3 ML IH SCH ×6 (03:48→23:20)
[2018-05-05] MEDS: Piperacillin/Tazobactam 3.375 GM in 0.9 % Sodium Chloride Mini Bag 100 ML IVPB SCH ×3 (06:20→23:58)
[2018-05-05 06:34] LABS: Red Cell Distribution Width 16.6 % (11.5-14.5)
[2018-05-05 06:36] LABS: Basophils % 0.3 %; Eosinophils # 0.1 K/mcL (0.0-0.6); Hematocrit 26.1 % (37.5-50.1); Immature Platelets 3.9 % (1.1-6.1); Lymphocytes # 0.8 K/mcL (0.6-4.6); Lymphocytes % 26.8 %; Mean Corpuscular HGB Conc 30.7 g/dL (31.6-35.5); Mean Corpuscular Hemoglobin 29.9 pg (28.0-33.3); Mean Corpuscular Volume 97.4 fL (83.0-100.0); Mean Platelet Volume 9.8 fL (9.4-12.4); Monocytes # 0.3 K/mcL (0.0-1.3); Monocytes % 8.7 %; Neutrophils # 1.8 K/mcL (1.6-8.9); Platelet Count 50 K/mcL (140-400); Red Blood Count 2.68 M/mcL (4.19-5.50); Segmented Neutrophils % 59.2 %
[2018-05-05 06:53] LABS: Alanine Aminotransferase 19 Units/L (7-52); Albumin 3.4 g/dL (3.5-5.7); Albumin/Globulin Ratio 2.1 (1.1-2.2); Alkaline Phosphatase 101 Units/L (34-104); Aspartate Amino Transferase 20 Units/L (13-39); BUN/Creatinine Ratio 15 (6-26); Bilirubin,Total 1.2 mg/dL (0.3-1.0); Blood Urea Nitrogen 15 mg/dL (6-20); Calcium 8.6 mg/dL (8.6-10.3); Carbon Dioxide 41 mEq/L (23-29); Chloride 98 mEq/L (98-107); Globulin 1.6 g/dL (2.4-3.5); Glucose 82 mg/dL (70-105); Osmolality,Calculated 296 (280-300); Potassium 3.5 mEq/L (3.5-5.1); Sodium 143 mEq/L (136-145); eGFR For Non-African Americans > 60 (> 60)
[2018-05-05] MEDS: Insulin LISPRO 300 UNITS/3 ML VIAL SQ SCH ×7 (07:31→22:16)
[2018-05-05] MEDS: Sucralfate 1 GM TABLET PO SCH ×3 (08:11→17:12)
[2018-05-05] MEDS: Lactulose Oral Soln 20 GM/30 ML UDC PO SCH ×3 (08:11→22:06)
[2018-05-05] MEDS: Aspirin 81 MG TAB.CHEW PO SCH (08:11)
[2018-05-05] MEDS: Furosemide 20 MG/2 ML VIAL IVP SCH ×2 (08:11→17:12)
[2018-05-05] MEDS: Gabapentin 300 MG CAPSULE PO SCH ×2 (08:11→22:06)
[2018-05-05] MEDS: Insulin DETEMIR 100 UNIT/ML X5UNITS SQ SCH (08:12)
[2018-05-05] MEDS ORDERED: predniSONE 20 MG TABLET PO SCH (09:00)
--- NOTE | 2018-05-05 15:22 | Internal Med Progress Note ---
Hospitalist Progress Note - Encounter Date of Encounter: 05/05/18 Time of Encounter: 15:21 - Subjective Interval History: Patient seen and examined at bedside. Patient no overnight events. Patient's chest tube was unclamped after CT scan yesterday; pulmonology is managing. Per RN patient's chest tube will remain unclamped and if less than 200 mL of output chest tube to be removed tomorrow. Patient comfortable sitting on side of bed. Patient still somewhat short of breath especially when laying down. Using BiPAP at nighttime. Patient denies any chest pain, nausea, vomiting, diarrhea. Patient's been afebrile. Patient continues have a cough with sputum production. - Exam Vitals: Temp Pulse Resp BP Pulse Ox 97.7 F 69 16 108/62 97 05/05/18 11:11 05/05/18 11:11 05/05/18 11:16 05/05/18 11:11 05/05/18 11:16 Exam: Constitutional: No acute distress, Alert Psych: AAO x 3 HEENT: NCAT, EOMI Neck: supple, no JVD Cardio: regular rate and rhythm, +s1s2, no murmurs/rubs/gallops, no JVD Resp: Patient with crackles bilaterally in bases and decreased breath sounds in left lower base Abd: soft, non tender/non distended, positive bowel sounds, no gaurding/reboud/ ridgitity Chest: Left posterior chest tube draining no surrounding erythema around site bandage remains in place; chest tube unclamped Extremities: no clubbing/cyanosis/edema appreciated - Assessment and Plan (1) Sepsis Current Visit: Yes Status: Acute Assessment and Plan: -Met sepsis criteria with tachycardia, hypotension and tachypnea Suspected source pneumonia; -sepsis resolved -chest CT showed patchy opacities in left upper and lower lobes -No elevated WBC but hx of pancytopenia -Lactic acid peaked at 4.6 and trended down. -Afebrile and does not appear acute or toxic. -ATB coverage broadened to Vanco and zosyn will continue for now and likely transition to oral antibiotics soon -No IV fluids with fluid overload and pleural effusions. -Blood cx's pending but negative to date -CT scan of the chest yesterday revealed bilateral lower lobe consolidative changes with air bronchograms and cystoscopy with multifocal pneumonia (2) Pleural effusion Current Visit: Yes Status: Acute Assessment and Plan: -Recurrent pleural effusion of left thorax -Likely multifactorial with history of cirrhosis, current decompensated heart failure, possible pneumonia, and CLL history -S/p left thoracentesis 04/21/18 with removal of 1500 mL at that time. Fluid cytology showed reactive mesothelial cells. -CXR showed complete opacification of the left hemithorax, worsened since , right lung demonstrates a small pleural effusion. -S/p CT placement per IR. -CT of chest obtained on 05/04/2018 reveals no significant interval change and stable position of the left pigtail catheter with small right-sided pleural effusion that unchanged and bilateral consolidative lower lobe changes with air bronchograms consistent with multifocal pneumonia -Chest tube unclamped yesterday -Per RN if less than 200 mL of output tomorrow chest tube will be removed; and may need Pleurx catheter -Continue IV diuresis. Likely transition to oral diuretic tomorrow. -Pulmonology following; appreciate recs -cytology pending -follow cultures (3) CLL (chronic lymphocytic leukemia) Current Visit: Yes Status: Chronic Assessment and Plan: per hx. Follows with Dr. Murray. With persistent pancytopenia secondary to CLL. -Last seen by oncology 02/2018 who recommended starting Ibrutnib if pancytopenia persist. -Labwork consistent with pancytopenia but appears to be stable since 02/2018 oncology evaluation. -No active bleeding. -Monitor CBC. Hemoglobin and white count and platelets remain stable for now. -Oncology Appointment scheduled for 05/06/18, may need to be rescheduled (4) Type 2 diabetes mellitus Current Visit: Yes Status: Chronic Assessment and Plan: Holding home metformin. -BG improved -Cont home long acting and prandial coverage. -Continue Levemir 60 units in a.m. and decrease p.m. Levemir to 45 units as pts am glucose was 77 and steroids are titrating down -Continue meal lispro to 25 units 3 times a day with meals -Continue sliding scale coverage -Monitor Accu-Cheks and adjust accordingly (5) Cirrhosis Current Visit: Yes Status: Chronic Assessment and Plan: -hx non-alcoholic cirrhosis. -ABD US without ascites, no paracentesis indicated. -Patient did have an episode of hepatic encephalopathy during 03/09/18 admission. -LFTS stable, ammonia 106 -Albumin and INR normal. -Cont lactulose. -continue aldactone -continue lasix; likely transition to PO tomorrow () -GI recs appreciated (6) Esophageal varices without bleeding Current Visit: Yes Status: Chronic Assessment and Plan: -hx of esophageal varices without bleeding. -Varices previously banded. -Cont home BB (7) Hypothyroidism Current Visit: Yes Status: Chronic Assessment and Plan: Continue home medication (8) CHF (congestive heart failure) Current Visit: Yes Status: Chronic (9) COPD (chronic obstructive pulmonary disease) Current Visit: Yes Status: Chronic Assessment and Plan: -COPD with chronic respiratory failure; wears O2 continously at home; no acute exacerbation -Received one-time dose IV steroids and -No wheezing; will wean steroids again to 10mg -Cont supplemental O2. -Wean to home dose oxygen as able. (10) HTN (hypertension) Current Visit: Yes Status: Chronic (11) HLD (hyperlipidemia) Current Visit: Yes Status: Chronic Assessment and Plan: -Cont home statin (12) Hypercapnia Current Visit: Yes Status: Acute Assessment and Plan: Patient with chronic hypercapnic respiratory failure -Compensated appropriately -We will monitor with diuresis (13) CAD (coronary artery disease), [place] coronary artery Current Visit: Yes Status: Acute Assessment and Plan: -[place] CAD, prior PCI. 02/2018 TTE with preserved LVEF. -Troponins mildly elevated during 02/2018 admission and he was evaluated by Cardiology at that time who did not recommend LHC due to thrombocytopenia. -Denies chest pain. -Cont ASA, BB, statin (14) Pancytopenia due to chemotherapy Current Visit: Yes Status: Acute Assessment and Plan: -Monitor CBC -Currently hemoglobin platelet count and wbc count is stable -We will follow with oncology as an outpatient - Time Spent with Patient Total time spent is greater than 50% in coordination of care (as documented) at patient's floor/unit and/or counseling patient: 25 - 35 minutes Plan of Care Discussed with: patient Internal Medicine: Result - Labs CBC & Chem 7: 05/05/18 06:16 05/05/18 06:16 Labs: Short CBC 05/05/18 Range/Units 06:16 WBC 3.0 L (4.3-11.1) K/mcL Hgb 8.0 L (12.9-16.9) g/dL Hct 26.1 L (37.5-50.1) % Plt Count 50 L (140-400) K/mcL Neutrophils # 1.8 (1.6-8.9) K/mcL BMP 05/05/18 06:16 Sodium 143 Potassium 3.5 Chloride 98 Carbon Dioxide 41 H* BUN 15 Creatinine 1.02 Glucose 82 Calcium 8.6 Liver Function 05/05/18 Range/Units 06:16 Total Bilirubin 1.2 H (0.3-1.0) mg/dL AST 20 (13-39) Units/L ALT 19 (7-52) Units/L Alkaline Phosphatase 101 (34-104) Units/L Albumin 3.4 L (3.5-5.7) g/dL - ABG Interpretation ABG results: ABG ABG pH 7.40 pH Units (7.32-7.45) 05/02/18 05:19 ABG pCO2 71 mmHg (35-45) H* 05/02/18 05:19 ABG pO2 58 mmHg (85-104) L 05/02/18 05:19 ABG O2 Saturation 88 % (95-98) L 05/02/18 05:19 PT/INR, D-dimer PT 12.7 Seconds (9.4-12.1) H 05/01/18 15:11 - Impressions Impressions Chest CT 05/04/18 08:29 IMPRESSION: 1. Stable position of left pigtail drainage catheter with small left hydropneumothorax as on the previous exam. No significant interval change. 2. Small right-sided pleural effusion also noted, unchanged. 3. Bilateral lower lobe consolidative changes are present with air bronchograms. This may be related to multifocal pneumonia and continued radiographic follow-up is recommended to ensure resolution. 4. Stable cardiomegaly with atherosclerotic vascular calcifications. 5. Findings compatible with cirrhosis with splenomegaly and ascites in the upper abdomen. D/ / Jason Erwin MD / Jason Erwin MD Interpreting Provider: Jason Erwin MD Consult Discharge Plan - Plan Referrals: Derick Ellis DO [Primary Care Provider] - (1) Sepsis Qualifiers: Sepsis type: sepsis due to unspecified organism Qualified Code(s): A41.9 - Sepsis, unspecified organism (4) Type 2 diabetes mellitus Qualifiers: Diabetes mellitus tank terminal gauger insulin use: with tank terminal gauger use Diabetes mellitus complication status: with hyperglycemia Qualified Code(s): E11.65 - Type 2 diabetes mellitus with hyperglycemia; Z79.4 - intermediate manager (current) use of insulin (5) Cirrhosis Qualifiers: Hepatic cirrhosis type: other cirrhosis Qualified Code(s): K74.69 - Other cirrhosis of liver (6) Esophageal varices without bleeding Qualifiers: Esophageal varices type: secondary Qualified Code(s): I85.10 - Secondary esophageal varices without bleeding (7) Hypothyroidism Qualifiers: Hypothyroidism type: unspecified Qualified Code(s): E03.9 - Hypothyroidism, unspecified (8) CHF (congestive heart failure) Qualifiers: Heart failure type: diastolic Heart failure chronicity: chronic Qualified Code(s): I50.32 - Chronic diastolic (congestive) heart failure (9) COPD (chronic obstructive pulmonary disease) Qualifiers: COPD type: unspecified COPD Qualified Code(s): J44.9 - Chronic obstructive pulmonary disease, unspecified (10) HTN (hypertension) Qualifiers: Hypertension type: essential hypertension Qualified Code(s): I10 - Essential (primary) hypertension (11) HLD (hyperlipidemia) Qualifiers: Hyperlipidemia type: pure hypercholesterolemia Qualified Code(s): E78.00 - Pure hypercholesterolemia, unspecified; E78.0 - Pure hypercholesterolemia
--- NOTE | 2018-05-05 15:32 | Pulmonology Progress Note ---
<SandroadenikeGurjit jonespowernathaly S - Last Filed: 05/05/18 18:01> Date of Encounter: 05/05/18 Objective PUL Vital signs: Last Vital Signs Temp 100.1 F H 05/05/18 15:35 Pulse 79 05/05/18 15:35 Resp 16 05/05/18 16:04 BP 115/58 05/05/18 15:35 Pulse Ox 93 05/05/18 16:04 Results - Laboratory Findings CBC and BMP: 05/05/18 06:16 05/05/18 06:16 ABG ABG pH 7.40 pH Units (7.32-7.45) 05/02/18 05:19 ABG pCO2 71 mmHg (35-45) H* 05/02/18 05:19 ABG pO2 58 mmHg (85-104) L 05/02/18 05:19 ABG O2 Saturation 88 % (95-98) L 05/02/18 05:19 PT/INR, D-dimer PT 12.7 Seconds (9.4-12.1) H 05/01/18 15:11 Abnormal lab findings: Abnormal lab results WBC 3.0 K/mcL (4.3-11.1) L 05/05/18 06:16 RBC 2.68 M/mcL (4.19-5.50) L 05/05/18 06:16 Hgb 8.0 g/dL (12.9-16.9) L 05/05/18 06:16 Hct 26.1 % (37.5-50.1) L 05/05/18 06:16 MCHC 30.7 g/dL (31.6-35.5) L 05/05/18 06:16 RDW 16.6 % (11.5-14.5) H 05/05/18 06:16 Plt Count 50 K/mcL (140-400) L 05/05/18 06:16 Nucleated RBCs/100 WBC 1.0 /100 WBC (0) H 05/05/18 06:16 PT 12.7 Seconds (9.4-12.1) H 05/01/18 15:11 APTT 36.8 Seconds (26.0-36.0) H 05/01/18 15:11 ABG pCO2 71 mmHg (35-45) H* 05/02/18 05:19 ABG pO2 58 mmHg (85-104) L 05/02/18 05:19 ABG HCO3 44 mEq/L (21-27) H 05/02/18 05:19 ABG Total CO2 46 mEq/L (20-26) H 05/02/18 05:19 ABG O2 Saturation 88 % (95-98) L 05/02/18 05:19 ABG Base Excess 16 mEq/L (-2 to 3) H 05/02/18 05:19 Carbon Dioxide 41 mEq/L (23-29) H* 05/05/18 06:16 POC Glucose 325 mg/dL (70-99) H 05/04/18 19:44 Hemoglobin A1c 7.3 % (-5.6) H 05/02/18 00:29 Phosphorus 2.3 mg/dL (2.7-4.5) L 05/02/18 00:29 Magnesium 1.5 mg/dL (1.6-2.6) L 05/02/18 00:29 Total Bilirubin 1.2 mg/dL (0.3-1.0) H 05/05/18 06:16 Ammonia 77 mcmol/L (16-53) H 05/05/18 06:16 B-Natriuretic Peptide 189 pg/mL (Less than 100) H 05/01/18 15:11 Serum Total Protein 5.0 g/dL (6.4-8.9) L 05/05/18 06:16 Albumin 3.4 g/dL (3.5-5.7) L 05/05/18 06:16 Globulin 1.6 g/dL (2.4-3.5) L 05/05/18 06:16 Triglycerides 360 mg/dL (< 150) H 05/02/18 00:29 VLDL Cholesterol, Calc 72 mg/dL (< 31) H 05/02/18 00:29 HDL Cholesterol 28 mg/dL (40-59) L 05/02/18 00:29 Cholesterol/HDL Ratio 5.8 (0-4.9) H 05/02/18 00:29 Pleural Appearance Hazy (Clear) A 05/01/18 18:50 Vancomycin Trough 16 mcg/mL (5-10) H 05/04/18 01:52 - Microbiology Findings Microbiology Findings: Microbiology, Last 48 Hours 08/04/18 18:50 Body Fluid Culture - Final Pleural Fluid - Clinical Findings Intake & Output: Intake & Output 05/05/18 05/05/18 05/05/18 07:59 15:59 23:59 Intake Total 350 / 350 340 / 340 250 / 250 Output Total 502 / 502 184 / 184 Balance -152 / -152 156 / 156 250 / 250 Consult Discharge Plan - Plan Referrals: Derick Ellis DO [Primary Care Provider] - - Attending Attestation - Attending Attestation I saw and evaluated this patient and my medical decision-making was reviewed with the Resident Physician. I agree with the documented findings, disposition and treatment plan as described except to the extent set forth below. We independently had [id number] contact with the patient Patient seen and examined at bedside Labs, radiology, chart personally reviewed. 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 following commands Pulm: Patient V/Q mismatch is acceptable his pleural effusion and the repeat CT chest is lot better pneumothorax is lot better is still has the residual infiltrates and the collapse of the partial left lower lobe collapse is currently chronic at this point since after the last CT scan had some 300-400 ml out will wait for another 24 hrs we will remove the chest tube probably most likely tomorrow and see if the pleural effusion recurs if it recurs he will need a Pleurx catheter <Mickey Good - Last Filed: 05/05/18 18:43> Date of Encounter: 05/05/18 Time of Encounter: 13:00 Assessment and Plan (1) Pleural effusion Current Visit: Yes Status: Acute - patient has a history of recurrent pleural effusion. currently it is a loculated pleural effusion - the pleural effusion could be secondary to his multiple co-morbidities like liver cirrhosis (MEDL score : 10, Child Kenny Class A) , CHF (Echo: 5% as of 2017), Hx of malignancy (CLL) - pleural fluid has been drained . Pleural fluid was exudative (Plueral protein / Serum protein > 0.5) and we are awaiting the cytology results - he is s/p chest placement per IR. He has drained 200 mL in the past 16 hrs . - he continues to get IV lasix, steroids (prednisone 20mg PO) - most recent Chest CT showed Stable position of left pigtail drainage catheter with small left hydropneumothorax as on the previous exam - the plan is to get his chest tube out tomorrow - in future if the he continuos to show fluid buildup, he might potentially need the Pleurax Catheter Subjective Principal diagnosis: Pleural Effusion Interval history: no acute events overnight. Patient is s/ p chest tube placement (on 11/29/2017) for his pleural effusion. He had his chest tube clamped the day before yesterday. Today the patient appears to be in no acute distress. He denies any SOB, chest pain, cough or palpitations. We are also awaiting results from the cytology of his pleural fluid. The cytology of the pleural fluid during his last admission showed reactive mesothelial cells. His chest tube has drained 200m L in the last 16 hrs Objective PUL Vital signs: Last Vital Signs Temp 97.7 F 05/05/18 11:11 Pulse 69 05/05/18 11:11 Resp 16 05/05/18 11:16 BP 108/62 05/05/18 11:11 Pulse Ox 97 05/05/18 11:16 General appearance: no acute distress (good mentation, A&O*3) Auscultation: right: diminished breath sounds (no wheezing rochi or rales) Percussion: bilateral: not dull Cardiovascular: regular rate and rhythm (no murmurs, gallops or rubs) Gastrointestinal: soft, non-tender, non-distended Extremities: no cyanosis, no edema, no clubbing Results - Laboratory Findings CBC and BMP: 05/05/18 06:16 05/05/18 06:16 ABG ABG pH 7.40 pH Units (7.32-7.45) 05/02/18 05:19 ABG pCO2 71 mmHg (35-45) H* 05/02/18 05:19 ABG pO2 58 mmHg (85-104) L 05/02/18 05:19 ABG O2 Saturation 88 % (95-98) L 05/02/18 05:19 PT/INR, D-dimer PT 12.7 Seconds (9.4-12.1) H 05/01/18 15:11 Abnormal lab findings: Abnormal lab results WBC 3.0 K/mcL (4.3-11.1) L 05/05/18 06:16 RBC 2.68 M/mcL (4.19-5.50) L 05/05/18 06:16 Hgb 8.0 g/dL (12.9-16.9) L 05/05/18 06:16 Hct 26.1 % (37.5-50.1) L 05/05/18 06:16 MCHC 30.7 g/dL (31.6-35.5) L 05/05/18 06:16 RDW 16.6 % (11.5-14.5) H 05/05/18 06:16 Plt Count 50 K/mcL (140-400) L 05/05/18 06:16 Nucleated RBCs/100 WBC 1.0 /100 WBC (0) H 05/05/18 06:16 PT 12.7 Seconds (9.4-12.1) H 05/01/18 15:11 APTT 36.8 Seconds (26.0-36.0) H 05/01/18 15:11 ABG pCO2 71 mmHg (35-45) H* 05/02/18 05:19 ABG pO2 58 mmHg (85-104) L 05/02/18 05:19 ABG HCO3 44 mEq/L (21-27) H 05/02/18 05:19 ABG Total CO2 46 mEq/L (20-26) H 05/02/18 05:19 ABG O2 Saturation 88 % (95-98) L 05/02/18 05:19 ABG Base Excess 16 mEq/L (-2 to 3) H 05/02/18 05:19 Carbon Dioxide 41 mEq/L (23-29) H* 05/05/18 06:16 POC Glucose 325 mg/dL (70-99) H 05/04/18 19:44 Hemoglobin A1c 7.3 % (-5.6) H 05/02/18 00:29 Phosphorus 2.3 mg/dL (2.7-4.5) L 05/02/18 00:29 Magnesium 1.5 mg/dL (1.6-2.6) L 05/02/18 00:29 Total Bilirubin 1.2 mg/dL (0.3-1.0) H 05/05/18 06:16 Ammonia 77 mcmol/L (16-53) H 05/05/18 06:16 B-Natriuretic Peptide 189 pg/mL (Less than 100) H 05/01/18 15:11 Serum Total Protein 5.0 g/dL (6.4-8.9) L 05/05/18 06:16 Albumin 3.4 g/dL (3.5-5.7) L 05/05/18 06:16 Globulin 1.6 g/dL (2.4-3.5) L 05/05/18 06:16 Triglycerides 360 mg/dL (< 150) H 05/02/18 00:29 VLDL Cholesterol, Calc 72 mg/dL (< 31) H 05/02/18 00:29 HDL Cholesterol 28 mg/dL (40-59) L 05/02/18 00:29 Cholesterol/HDL Ratio 5.8 (0-4.9) H 05/02/18 00:29 Pleural Appearance Hazy (Clear) A 05/01/18 18:50 Vancomycin Trough 16 mcg/mL (5-10) H 05/04/18 01:52 - Microbiology Findings Microbiology Findings: Microbiology, Last 48 Hours 05/01/18 18:50 Body Fluid Culture - Final Pleural Fluid - Clinical Findings Intake & Output: Intake & Output 05/04/18 05/05/18 05/05/18 23:59 07:59 15:59 Intake Total 830 / 830 350 / 350 340 / 340 Output Total 1575 / 1575 502 / 502 184 / 184 Balance -745 / -745 -152 / -152 156 / 156 Weight 114.7 kg
[2018-05-05] MEDS ORDERED: Insulin DETEMIR 100 UNIT/ML X5UNITS SQ SCH (21:00)
[2018-05-05] MEDS: ALPRAZolam 1 MG TABLET PO PRN (22:16)
[2018-05-06 03:04] LABS: Basophils % 0.3 %; Hematocrit 25.1 % (37.5-50.1); Lymphocytes % 25.3 %; Mean Corpuscular Volume 97.7 fL (83.0-100.0); Red Blood Count 2.57 M/mcL (4.19-5.50)
[2018-05-06 03:06] LABS: Eosinophils # 0.1 K/mcL (0.0-0.6); Eosinophils % 4.4 %; Hemoglobin 7.7 g/dL (12.9-16.9); Immature Platelets 3.4 % (1.1-6.1); Lymphocytes # 0.8 K/mcL (0.6-4.6); Mean Corpuscular HGB Conc 30.7 g/dL (31.6-35.5); Monocytes # 0.2 K/mcL (0.0-1.3); Monocytes % 7.8 %; Neutrophils # 1.8 K/mcL (1.6-8.9); Nucleated Red Blood Cells 0.7 /100 WBC (0); Platelet Count 54 K/mcL (140-400); Red Cell Distribution Width 16.5 % (11.5-14.5); Segmented Neutrophils % 60.2 %
[2018-05-06] MEDS: Ipratropium/Albuterol Neb 3 ML IH SCH ×4 (03:21→15:59)
[2018-05-06 03:22] LABS: Alanine Aminotransferase 32 Units/L (7-52); Albumin 3.3 g/dL (3.5-5.7); Albumin/Globulin Ratio 1.9 (1.1-2.2); Alkaline Phosphatase 152 Units/L (34-104); Aspartate Amino Transferase 37 Units/L (13-39); BUN/Creatinine Ratio 15 (6-26); Bilirubin,Total 1.1 mg/dL (0.3-1.0); Blood Urea Nitrogen 16 mg/dL (6-20); Calcium 8.3 mg/dL (8.6-10.3); Carbon Dioxide 38 mEq/L (23-29); Chloride 97 mEq/L (98-107); Globulin 1.7 g/dL (2.4-3.5); Glucose 252 mg/dL (70-105); Osmolality,Calculated 300 (280-300); Potassium 3.6 mEq/L (3.5-5.1); Sodium 140 mEq/L (136-145); eGFR For Non-African Americans > 60 (> 60)
[2018-05-06] MEDS: Piperacillin/Tazobactam 3.375 GM in 0.9 % Sodium Chloride Mini Bag 100 ML IVPB SCH (05:56)
[2018-05-06] MEDS ORDERED: Insulin DETEMIR 100 UNIT/ML X5UNITS SQ SCH (09:00)
[2018-05-06] MEDS ORDERED: predniSONE 10 MG TABLET PO SCH (09:00)
[2018-05-06] MEDS: Gabapentin 300 MG CAPSULE PO SCH (10:04)
[2018-05-06] MEDS: Aspirin 81 MG TAB.CHEW PO SCH (10:05)
[2018-05-06] MEDS: Furosemide 20 MG/2 ML VIAL IVP SCH (10:06)
[2018-05-06] MEDS: Lactulose Oral Soln 20 GM/30 ML UDC PO SCH (10:08)
[2018-05-06] MEDS: Sucralfate 1 GM TABLET PO SCH ×2 (10:08→13:03)
[2018-05-06] MEDS: Insulin LISPRO 300 UNITS/3 ML VIAL SQ SCH ×4 (10:17→13:03)
--- NOTE | 2018-05-06 13:12 | Pulmonology Progress Note ---
<SandroadenikeGurjit jonesshabana S - Last Filed: 05/06/18 14:45> Date of Encounter: 05/06/18 Objective PUL Vital signs: Last Vital Signs Temp 97.9 F 05/06/18 10:44 Pulse 79 05/06/18 10:44 Resp 16 05/06/18 11:59 BP 153/73 05/06/18 10:44 Pulse Ox 97 05/06/18 11:59 Results - Laboratory Findings CBC and BMP: 05/06/18 02:52 05/06/18 02:52 ABG ABG pH 7.40 pH Units (7.32-7.45) 05/02/18 05:19 ABG pCO2 71 mmHg (35-45) H* 05/02/18 05:19 ABG pO2 58 mmHg (85-104) L 05/02/18 05:19 ABG O2 Saturation 88 % (95-98) L 05/02/18 05:19 PT/INR, D-dimer PT 12.7 Seconds (9.4-12.1) H 05/01/18 15:11 Abnormal lab findings: Abnormal lab results WBC 3.0 K/mcL (4.3-11.1) L 05/06/18 02:52 RBC 2.57 M/mcL (4.19-5.50) L 05/06/18 02:52 Hgb 7.7 g/dL (12.9-16.9) L 05/06/18 02:52 Hct 25.1 % (37.5-50.1) L 05/06/18 02:52 MCHC 30.7 g/dL (31.6-35.5) L 05/06/18 02:52 RDW 16.5 % (11.5-14.5) H 05/06/18 02:52 Plt Count 54 K/mcL (140-400) L 05/06/18 02:52 Nucleated RBCs/100 WBC 0.7 /100 WBC (0) H 05/06/18 02:52 PT 12.7 Seconds (9.4-12.1) H 05/01/18 15:11 APTT 36.8 Seconds (26.0-36.0) H 05/01/18 15:11 ABG pCO2 71 mmHg (35-45) H* 08/05/18 05:19 ABG pO2 58 mmHg (85-104) L 05/02/18 05:19 ABG HCO3 44 mEq/L (21-27) H 05/02/18 05:19 ABG Total CO2 46 mEq/L (20-26) H 05/02/18 05:19 ABG O2 Saturation 88 % (95-98) L 05/02/18 05:19 ABG Base Excess 16 mEq/L (-2 to 3) H 05/02/18 05:19 Chloride 97 mEq/L (98-107) L 05/06/18 02:52 Carbon Dioxide 38 mEq/L (23-29) H 05/06/18 02:52 Glucose 252 mg/dL (70-105) H 05/06/18 02:52 POC Glucose 157 mg/dL (70-99) H 05/06/18 07:25 Hemoglobin A1c 7.3 % (-5.6) H 05/02/18 00:29 Calcium 8.3 mg/dL (8.6-10.3) L 05/06/18 02:52 Phosphorus 2.3 mg/dL (2.7-4.5) L 05/02/18 00:29 Magnesium 1.5 mg/dL (1.6-2.6) L 05/02/18 00:29 Total Bilirubin 1.1 mg/dL (0.3-1.0) H 05/06/18 02:52 Alkaline Phosphatase 152 Units/L (34-104) H 05/06/18 02:52 Ammonia 77 mcmol/L (16-53) H 05/05/18 06:16 B-Natriuretic Peptide 189 pg/mL (Less than 100) H 05/01/18 15:11 Serum Total Protein 5.0 g/dL (6.4-8.9) L 05/06/18 02:52 Albumin 3.3 g/dL (3.5-5.7) L 05/06/18 02:52 Globulin 1.7 g/dL (2.4-3.5) L 05/06/18 02:52 Triglycerides 360 mg/dL (< 150) H 05/02/18 00:29 VLDL Cholesterol, Calc 72 mg/dL (< 31) H 05/02/18 00:29 HDL Cholesterol 28 mg/dL (40-59) L 05/02/18 00:29 Cholesterol/HDL Ratio 5.8 (0-4.9) H 05/02/18 00:29 Pleural Appearance Hazy (Clear) A 05/01/18 18:50 Vancomycin Trough 13 mcg/mL (5-10) H 05/06/18 02:52 - Microbiology Findings Microbiology Findings: Microbiology, Last 48 Hours 05/01/18 18:50 Body Fluid Culture - Final Pleural Fluid - Clinical Findings Intake & Output: Intake & Output 05/05/18 05/06/18 05/06/18 23:59 07:59 15:59 Intake Total 1390 / 1390 100 / 100 720 / 720 Output Total 1200 / 1200 300 / 300 750 / 750 Balance 190 / 190 -200 / -200 -30 / -30 Weight 116.9 kg Consult Discharge Plan - Plan Instructions: Seasoning Without Salt (DC), Seasoning Without Salt (GEN), DASH Eating Plan (DC), DASH Eating Plan (GEN), Low Sodium Diet (DC), Low Sodium Diet (GEN) Referrals: Jose Juan Kumar MD [Partnered Physician] - (web requested tarah will call you within 1-2 weeks) Derick Ellis DO [Primary Care Provider] - 05/20/18 3:00 pm (Please follow up as schedule...) - Attending Attestation - Attending Attestation I saw and evaluated this patient and my medical decision-making was reviewed with the Resident Physician. I agree with the documented findings, disposition and treatment plan as described except to the extent set forth below. We independently had [id number] contact with the patient Patient seen and examined at bedside Labs, radiology, chart personally reviewed. 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 Pulm: Patient V/Q mismatch is acceptable his pleural effusion and the repeat CT chest is lot better pneumothorax is lot better is still has the residual infiltrates and the collapse of the partial left lower lobe collapse is currently chronic at this point since after the last CT scan had some 300-400 ml out will wait for another 24 hrs we will remove the chest tube probably most likely tomorrow and see if the pleural effusion recurs if it recurs he will need a Pleurx catheter 05/06 Patient chest tube drainage is around 200 mL since this is 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 <Tayler Goodbh - Last Filed: 05/06/18 22:30> Date of Encounter: 05/06/18 Time of Encounter: 11:00 Assessment and Plan (1) Pleural effusion Status: Acute - patient has a history of recurrent pleural effusion. currently it is a loculated pleural effusion - the pleural effusion could be secondary to his multiple co-morbidities like liver cirrhosis (MEDL score : 10, Child Kenny Class A) , CHF (Echo: 5% as of 2017), Hx of malignancy (CLL) - he had a chest tube palced by the IR that drained approximately 200-300 mL in the past 48 hrs - the fluid is secondary to hepatic hydrothroax and diastolic dysfunction. - the chest tube has been removed- - advised cardiac diet - patient has been instructed to come to the ED should he have any symptoms of SOB, chest pain, palpitations - in future if the he continuos to show fluid buildup, he might potentially need the Pleurax Catheter Subjective Principal diagnosis: Pleural Effusion Interval history: no acute events overnight. Patient is s/ p chest tube placement (on 11/29/2017) for his pleural effusion. Patient's chest tube drained approximately 200-300 mL fluid in the last 48 hrs. Today the chest tube has been pulled out and the patient tolerated the procedure well. The cytology of the pleural fluid during his last admission showed reactive mesothelial cells. Objective PUL Vital signs: Last Vital Signs Temp 97.9 F 05/06/18 10:44 Pulse 79 05/06/18 10:44 Resp 16 05/06/18 11:59 BP 153/73 05/06/18 10:44 Pulse Ox 97 05/06/18 11:59 General appearance: no acute distress Effort: normal Auscultation: bilateral: clear Cardiovascular: regular rate and rhythm (no gallops, murmurs or rubs) Gastrointestinal: soft, non-tender, non-distended Extremities: no cyanosis, no edema, no clubbing Results - Laboratory Findings CBC and BMP: 05/06/18 02:52 05/06/18 02:52 ABG ABG pH 7.40 pH Units (7.32-7.45) 05/02/18 05:19 ABG pCO2 71 mmHg (35-45) H* 05/02/18 05:19 ABG pO2 58 mmHg (85-104) L 05/02/18 05:19 ABG O2 Saturation 88 % (95-98) L 05/02/18 05:19 PT/INR, D-dimer PT 12.7 Seconds (9.4-12.1) H 05/01/18 15:11 Abnormal lab findings: Abnormal lab results WBC 3.0 K/mcL (4.3-11.1) L 05/06/18 02:52 RBC 2.57 M/mcL (4.19-5.50) L 05/06/18 02:52 Hgb 7.7 g/dL (12.9-16.9) L 05/06/18 02:52 Hct 25.1 % (37.5-50.1) L 05/06/18 02:52 MCHC 30.7 g/dL (31.6-35.5) L 05/06/18 02:52 RDW 16.5 % (11.5-14.5) H 05/06/18 02:52 Plt Count 54 K/mcL (140-400) L 05/06/18 02:52 Nucleated RBCs/100 WBC 0.7 /100 WBC (0) H 05/06/18 02:52 PT 12.7 Seconds (9.4-12.1) H 05/01/18 15:11 APTT 36.8 Seconds (26.0-36.0) H 05/01/18 15:11 ABG pCO2 71 mmHg (35-45) H* 05/02/18 05:19 ABG pO2 58 mmHg (85-104) L 05/02/18 05:19 ABG HCO3 44 mEq/L (21-27) H 05/02/18 05:19 ABG Total CO2 46 mEq/L (20-26) H 05/02/18 05:19 ABG O2 Saturation 88 % (95-98) L 05/02/18 05:19 ABG Base Excess 16 mEq/L (-2 to 3) H 05/02/18 05:19 Chloride 97 mEq/L (98-107) L 05/06/18 02:52 Carbon Dioxide 38 mEq/L (23-29) H 05/06/18 02:52 Glucose 252 mg/dL (70-105) H 05/06/18 02:52 POC Glucose 157 mg/dL (70-99) H 05/06/18 07:25 Hemoglobin A1c 7.3 % (-5.6) H 05/02/18 00:29 Calcium 8.3 mg/dL (8.6-10.3) L 05/06/18 02:52 Phosphorus 2.3 mg/dL (2.7-4.5) L 05/02/18 00:29 Magnesium 1.5 mg/dL (1.6-2.6) L 05/02/18 00:29 Total Bilirubin 1.1 mg/dL (0.3-1.0) H 05/06/18 02:52 Alkaline Phosphatase 152 Units/L (34-104) H 05/06/18 02:52 Ammonia 77 mcmol/L (16-53) H 05/05/18 06:16 B-Natriuretic Peptide 189 pg/mL (Less than 100) H 05/01/18 15:11 Serum Total Protein 5.0 g/dL (6.4-8.9) L 05/06/18 02:52 Albumin 3.3 g/dL (3.5-5.7) L 05/06/18 02:52 Globulin 1.7 g/dL (2.4-3.5) L 05/06/18 02:52 Triglycerides 360 mg/dL (< 150) H 05/02/18 00:29 VLDL Cholesterol, Calc 72 mg/dL (< 31) H 05/02/18 00:29 HDL Cholesterol 28 mg/dL (40-59) L 05/02/18 00:29 Cholesterol/HDL Ratio 5.8 (0-4.9) H 05/02/18 00:29 Pleural Appearance Hazy (Clear) A 05/01/18 18:50 Vancomycin Trough 13 mcg/mL (5-10) H 05/06/18 02:52 - Microbiology Findings Microbiology Findings: Microbiology, Last 48 Hours 05/01/18 18:50 Body Fluid Culture - Final Pleural Fluid - Clinical Findings Intake & Output: Intake & Output 05/05/18 05/06/18 05/06/18 23:59 07:59 15:59 Intake Total 1390 / 1390 100 / 100 720 / 720 Output Total 1200 / 1200 300 / 300 750 / 750 Balance 190 / 190 -200 / -200 -30 / -30 Weight 116.9 kg
[2018-05-06 15:25] VITALS: BP 138/77
--- NOTE | 2018-05-06 15:33 | Discharge Summary ---
- NOTES TO OUTPATIENT PROVIDER Notes to Outpatient Provider: Patient will follow up with oncology and pulmonology. If pleural effusion recurs will need Pleurx catheter per pulmonology. Orders not resulted at time of discharge: Pending orders 05/02/18 14:20 Culture,Blood [BC] Stat Cytology of pleural fluid pending Date of Encounter: 05/06/18 Time of Encounter: 15:31 - Discharge Diagnosis (1) Sepsis Priority: Primary Status: Acute Qualifiers: Sepsis type: sepsis due to unspecified organism Qualified Code(s): A41.9 - Sepsis, unspecified organism (2) Pleural effusion Priority: Secondary Status: Acute (3) CLL (chronic lymphocytic leukemia) Priority: Secondary Status: Chronic (4) Type 2 diabetes mellitus Priority: Secondary Status: Chronic Qualifiers: Diabetes mellitus residential insulin use: with terminal supervisor use Diabetes mellitus complication status: with hyperglycemia Qualified Code(s): E11.65 - Type 2 diabetes mellitus with hyperglycemia; Z79.4 - terminal supervisor (current) use of insulin (5) Cirrhosis Priority: Secondary Status: Chronic Qualifiers: Hepatic cirrhosis type: other cirrhosis Qualified Code(s): K74.69 - Other cirrhosis of liver (6) Esophageal varices without bleeding Priority: Secondary Status: Chronic Qualifiers: Esophageal varices type: secondary Qualified Code(s): I85.10 - Secondary esophageal varices without bleeding (7) Hypothyroidism Priority: Secondary Status: Chronic Qualifiers: Hypothyroidism type: unspecified Qualified Code(s): E03.9 - Hypothyroidism , unspecified (8) CHF (congestive heart failure) Priority: Secondary Status: Chronic Qualifiers: Heart failure type: diastolic Heart failure chronicity: chronic Qualified Code(s): I50.32 - Chronic diastolic (congestive) heart failure (9) COPD (chronic obstructive pulmonary disease) Priority: Secondary Status: Chronic Qualifiers: COPD type: unspecified COPD Qualified Code(s): J44.9 - Chronic obstructive pulmonary disease, unspecified (10) HTN (hypertension) Priority: Secondary Status: Chronic Qualifiers: Hypertension type: essential hypertension Qualified Code(s): I10 - Essential (primary) hypertension (11) HLD (hyperlipidemia) Priority: Secondary Status: Chronic Qualifiers: Hyperlipidemia type: pure hypercholesterolemia Qualified Code(s): E78.00 - Pure hypercholesterolemia, unspecified; E78.0 - Pure hypercholesterolemia (12) Hypercapnia Priority: Secondary Status: Acute (13) CAD (coronary artery disease), [place] coronary artery Priority: Secondary Status: Acute Qualifiers: [place] vs. transplanted heart: [place] heart Associated angina: without angina Qualified Code(s): I25.10 - Atherosclerotic heart disease of [place] coronary artery without angina pectoris (14) Pancytopenia due to chemotherapy Priority: Secondary Status: Acute Hospital course: Mr. Fang is a 58 year old male presented to the emergency room for treatment of shortness of breath for 3 days prior to arrival. Patient was found to have loculated pleural effusion and chest tube was placed. Cultures from effusion did not grow any bacteria. Blood cultures are negative. Patient had chest tube management pulmonology remove chest tube secondary to low output on 2017 that cleared the patient for discharge with outpatient follow-up in 2 weeks. It is thought that the patient effusion is multifactorial as the patient had pneumonia, has history of cirrhosis, and had some component of heart failure. The patient was diuresed, treated with antibiotics and maintain on his cirrhosis regimen. Patient's respiratory status improved throughout his stay. Patient is on chronic home oxygen and has CPAP at home which she will continue using. Pulmonology informed the patient that if his pleural effusion recurs he will need a Pleurx catheter. Patient will follow up with primary care physician within one week and pulmonology within 2 weeks and will keep his scheduled oncology appointment. Patient will not be discharged on antibiotics or steroids as the patient was tapered down the stairs at his stay and completed antibiotic course. Patient agreeable to discharge and all questions answered. Discharge discussed with: patient, family, nurse - Time Spent with Patient Total time spent providing and/or coordinating discharge services: Greater than 30 minutes - Discharge Medications Home Medications: ALPRAZolam [Xanax 1 MG Tablet] 1 mg PO BID PRN 05/09/15 [History] Atorvastatin Calcium [Lipitor] 20 mg PO HS 05/09/15 [History] Metformin HCl [Glucophage] 1,000 mg PO BID 05/09/15 [History] Oxygen 3 l NS HS 03/26/16 [History] Spironolactone [Aldactone] 100 mg PO DAILY 03/26/16 [History] OxyCODONE/APAP 10/325 [Percocet 10/325 MG] 1 tab PO Q6H PRN 07/30/16 [History] Furosemide [Lasix] 40 mg PO DAILY 12/24/16 [History] Insulin Glargine,Hum.rec.anlog [Lantus Solostar] 50 unit SQ BID 12/24/16 [ History] Prochlorperazine Maleate [Compazine] 1 tab PO Q6HR PRN #30 tablet 05/07/17 [Rx] Gabapentin [Neurontin] 300 mg PO BID 07/15/17 [History] Levothyroxine [Synthroid] 88 mcg PO 0630 #30 tablet 11/23/17 [Rx] Sucralfate [Carafate] 1 gm PO TID 03/09/18 [History] Insulin Regular, Human [Novolin R] 20 unit SQ TIDWM #18 vial 03/19/18 [Rx] Aspirin 81 mg PO DAILY 03/26/18 [History] Lactulose [Kristalose] 20 gm PO TID 03/26/18 [History] Pantoprazole Sodium [Protonix] 40 mg PO DAILY 03/26/18 [History] Metoprolol [Lopressor] 75 mg PO BID 05/01/18 [History] Nitroglycerin [Nitromist] 4.1 gm TL AD PRN 05/01/18 [History] Allergies/Adverse Reactions: 3 Allergy/AdvReac Type Severity Reaction Status Date / Time naproxen Allergy Mild Hives Verified 05/01/18 14:24 rituximab Allergy Mild Hives Verified 05/01/18 14:24 JUAN RAMON Inhibitors AdvReac Mild NECK PAIN Verified 05/01/18 14:24 cefdinir AdvReac Mild Dizziness Verified 05/01/18 14:24 hydrocodone AdvReac Mild Vomiting Verified 05/01/18 14:24 levofloxacin AdvReac Mild Dizziness Verified 05/01/18 14:24 ramipril [From Altace] AdvReac Mild NECK PAIN Verified 05/01/18 14:24 tramadol AdvReac Mild Nausea Verified 05/01/18 14:24 doxycycline AdvReac Vomiting Verified 05/01/18 14:24 Date of admission: 05/01/18 17:28 Primary care physician: Derick Ellis DO Consults: 05/01/18 17:48 Consult to Interventional Radiology [CONS] Routine Consulting Provider: Radiology Interventional [facility] Reason for Consult: Possible chest tube d/t CXR showing complete opacification of the left hemithorax which is worse since patient was admitted previously. Call Completed: Yes 05/01/18 18:39 Consult to Nutrition [CONS] Routine Comment: Consulting Provider: NUTRITION Reason for Dietary Consult: MST Score 05/02/18 09:13 Consult to Pulmonology [CONS] Routine Consulting Provider: [facility] Reason for Consult: large pleural effusion; s/p CT placement Call Completed: Yes 05/02/18 14:21 Consult to Gastroenterology [CONS] Routine Consulting Provider: [facility] [place] Reason for Consult: hx cirrhosis Call Completed: Yes Consult to Oncology [CONS] Routine Consulting Provider: Oncology [facility] [place] Reason for Consult: hx CLL; with recurrent pleural effusions Call Completed: Yes - Constitutional Vitals: Temp Pulse Resp BP Pulse Ox 97.7 F 88 17 138/77 95 05/06/18 15:24 05/06/18 15:24 05/06/18 15:24 05/06/18 15:24 05/06/18 15:24 General appearance: Present: cooperative, mild distress (SOB/Dyspnea), A&O X 3, morbidly obese, pleasant, answers questions appropriately Exam: Constitutional: No acute distress, Alert Psych: AAO x 3 HEENT: NCAT, EOMI Neck: supple, no JVD Cardio: regular rate and rhythm, +s1s2, no murmurs/rubs/gallops Resp: Chest tube removed. Patient has good air exchange with no wheezing. Patient has mild crackles in bilateral bases but improved from prior. Abd: soft, non tender/non distended, positive bowel sounds, no gaurding/reboud/ ridgitity Extremities: no clubbing/cyanosis/edema appreciated aclavicular adenopahty apprecitated - Patient Status Disposition: Home, Self-Care Condition: Good Functional capacity at discharge: independent ambulation Overall status at discharge: patient is back to baseline - Discharge Instructions Instructions: Seasoning Without Salt (DC), Seasoning Without Salt (GEN), DASH Eating Plan (DC), DASH Eating Plan (GEN), Low Sodium Diet (DC), Low Sodium Diet (GEN) Follow Up With: Derick Ellis DO [Primary Care Provider] - - Diet and Activity Activity: increase activity as tolerated Diet: advance to your usual diet, diabetic diet, low salt diet, other (1500 mL fluid restriction)
[2018-05-06] MEDS ORDERED: Aminoglycoside Consult 1 EACH MC ONE (16:51)
[2018-05-07] MEDS ORDERED: Furosemide 40 MG TABLET PO SCH (09:00)
== END 2018-05-06 16:52 | disposition home or self-care (01) | DRG 871 ==
LOC: 2ANU 14:20 → EMEROO 14:20 → 2ANU 17:03
PROVIDERS: ADMIT Internal Medicine; ATTEND Internal Medicine

== ENCOUNTER 2018-05-24 13:36 | Observation (INO) ==
--- NOTE | 2018-05-24 14:59 | Emergency Department Note ---
Disposition Clinical Impression: HCAP (healthcare-associated pneumonia), Pleural effusion Cirrhosis Qualifiers: Hepatic cirrhosis type: unspecified hepatic cirrhosis Ascites presence: with ascites Qualified Code(s): K74.60 - Unspecified cirrhosis of liver Pneumonia Qualifiers: Pneumonia type: due to unspecified organism Laterality: right Lung location: lower lobe of lung Qualified Code(s): J18.1 - Lobar pneumonia, unspecified organism Disposition: Admitted As Inpatient Condition: Good Referrals: Derick Ellis DO [Primary Care Provider] - Forms: ED Satisfaction Letter, Work/School Release Time of Disposition: 16:35 Abdominal Pain HPI - General Chief Complaint: ED Abdominal Pain Stated Complaint: JEANNE,Liver problems Time Seen by Provider: 05/24/18 14:11 Source: patient Mode of arrival: ambulatory Limitations: no limitations Nursing Notes Reviewed: Yes Vital Signs Reviewed: Yes - History of Present Illness HPI Narrative: 58-year-old male presents to the emergency department complaining of abdominal pain and shortness of breath. Patient has been recently diagnosed with cirrhosis nonalcoholic. He said he has had to have 2 pleural drainage is from fluid buildup. He has never had to have a paracentesis. He is on lactulose. He recently was increased on his lactulose. Patient states that he has generalized bloating. He does use a CPAP and also lactose and believes that is what could be causing it they said that he feels like he just needs to "fart" but he is unable to.. Patient said he is short of breath but feels like his causes belly so bloated. He said his belly is a little bigger than it normally is. He states he is having no generalized pain anywhere. She is uncomfortable. He has had no changes in bowel movements most recent bowel15 minutes prior to arrival. Says she has had normal bowel movements. Pain Scale: 6 - Related Data Home Medications Medication Instructions Recorded Confirmed ALPRAZolam [Xanax 1 MG Tablet] 1 mg PO BID PRN 05/09/15 05/24/18 Atorvastatin Calcium [Lipitor] 20 mg PO HS 05/09/15 05/24/18 Metformin HCl [Glucophage] 1,000 mg PO BID 05/09/15 05/24/18 Oxygen 3 l NS HS 03/26/16 05/24/18 Spironolactone [Aldactone] 100 mg PO DAILY 03/26/16 05/24/18 OxyCODONE/APAP 10/325 [Percocet 1 tab PO Q6H PRN 07/30/16 05/24/18 10/325 MG] Furosemide [Lasix] 40 mg PO DAILY 12/24/16 05/24/18 Insulin Glargine,Hum.rec.anlog 50 unit SQ BID 12/24/16 05/24/18 [Lantus Solostar] Gabapentin [Neurontin] 300 mg PO BID 07/15/17 05/24/18 Sucralfate [Carafate] 1 gm PO TID 03/09/18 05/24/18 Aspirin 81 mg PO AD 03/26/18 05/24/18 Lactulose [Kristalose] 20 gm PO TID 03/26/18 05/24/18 Pantoprazole Sodium [Protonix] 40 mg PO DAILY 03/26/18 05/24/18 Metoprolol [Lopressor] 75 mg PO BID 05/01/18 05/24/18 Nitroglycerin [Nitromist] 4.1 gm TL AD PRN 05/01/18 05/24/18 Insulin Regular, Human [Novolin R] 0 unit SQ TIDWM PRN 05/24/18 05/24/18 Previous Rx's Medication Instructions Recorded Prochlorperazine Maleate 1 tab PO Q6HR PRN #30 tablet 05/07/17 [Compazine] Levothyroxine [Synthroid] 88 mcg PO 0630 #30 tablet 11/23/17 Ibrutinib [Imbruvica] 420 mg PO DAILY #30 tablet 05/21/18 Allergies Allergy/AdvReac Type Severity Reaction Status Date / Time naproxen Allergy Mild Hives Verified 05/10/18 09:05 rituximab Allergy Mild Hives Verified 05/10/18 09:05 JUAN RAMON Inhibitors AdvReac Mild NECK PAIN Verified 05/10/18 09:05 cefdinir AdvReac Mild Dizziness Verified 05/10/18 09:05 hydrocodone AdvReac Mild Vomiting Verified 05/10/18 09:05 levofloxacin AdvReac Mild Dizziness Verified 05/10/18 09:05 ramipril [From Altace] AdvReac Mild NECK PAIN Verified 05/10/18 09:05 tramadol AdvReac Mild Nausea Verified 05/10/18 09:05 doxycycline AdvReac Vomiting Verified 05/10/18 09:05 All systems ED: reviewed and negative except as stated. Review of Systems: As Per HPI (10 point review of systems done and negative unless otherwise stated in the history of present illness.) Constitutional: Denies: fever, chills, weakness, weight change Eyes: Denies: eye pain, eye discharge, vision change ENT ED: Denies: ear pain, throat pain, dental pain, hearing loss, epistaxis, congestion, dysphagia Cardiovascular: Reports: dyspnea on exertion. Denies: chest pain, palpitations , edema, syncope Respiratory: Denies: cough, dyspnea, wheezes, hemoptysis, stridor Gastrointestinal: Denies: abdominal pain, nausea, vomiting, diarrhea, constipation, hematemesis, melena, hematochezia Genitourinary: Denies: urgency, dysuria, frequency, hematuria Musculoskeletal: Denies: back pain, neck pain, arthralgia, myalgia Integumentary: Denies: rash, abrasion, lesions Neurological: Denies: headache, weakness, numbness, paresthesias, confusion, abnormal gait, vertigo Psychiatric: Denies: anxiety, depression, suicidal thoughts, homicidal thoughts , auditory hallucinations, visual hallucinations Endocrine: Denies: fatigue Hematological/Lymphatic: Denies: easy bleeding, easy bruising Allergic/Immunologic: Denies: facial swelling, urticaria Abdominal Pain PMH - Past Medical History Medical history: Reports: cancer (CLL), cirrhosis, CHF, COPD, diabetes, GERD, hyperlipidemia, hypertension, kidney stones, myocardial infarction Psychiatric history: Reports: depression - Social History Smoking status: Former smoker Alcohol use: Reports: none Drug use: Reports: none Physical Exam - General Limitations: no limitations General appearance: alert, in no apparent distress - Head Head exam: atraumatic, normocephalic, normal inspection - Eye Eye exam: Present: normal appearance, PERRL, EOMI - ENT ENT exam: normal exam, normal oropharynx, mucous membranes moist - Neck Neck exam: Present: normal inspection, full ROM, trachea midline - Chest Chest inspection: Present: normal inspection, symmetric chest wall rise - Respiratory Respiratory exam: Present: normal lung sounds bilaterally - Cardiovascular Cardiovascular exam: Present: regular rate, normal rhythm, normal heart sounds - Abdominal Exam Abdominal exam: Present: soft, Non-Tender, distention, normal bowel sounds, hyperactive bowel sounds. Absent: tenderness, guarding, rebound, rigidity - Extremities Exam Extremities exam: Present: normal inspection, full ROM. Absent: tenderness, pedal edema - Back Exam Back exam: Present: normal inspection, full ROM. Absent: tenderness, CVA tenderness (R), CVA tenderness (L) - Neurological Exam Neurological exam: Present: alert, oriented X3 - Skin Skin exam: Present: warm, dry, intact, normal color Course Course Narrative: Patient here with abdominal distention. We will get chest x-ray bedside abdominal ultrasound, CMP and CBC. Patient's okay at this point. - Consultations Consultation #1: Spoke with the hospitalist Dr. Mcqueen who agreed to admit the patient to their service. Time: 16:40 Vital Signs Temperature 98.9 F 05/24/18 14:04 Pulse Rate 73 05/24/18 14:04 Respiratory Rate 20 05/24/18 14:04 Blood Pressure 143/74 05/24/18 14:04 O2 Sat by Pulse Oximetry 96 05/24/18 14:04 Temperature 98.9 F 05/24/18 14:52 Pulse Rate 73 05/24/18 17:00 Respiratory Rate 18 05/24/18 17:00 Blood Pressure 115/48 05/24/18 17:00 O2 Sat by Pulse Oximetry 100 05/24/18 17:00 Oxygen Delivery Oxygen Delivery Nasal Cannula Abdominal Pain - MDM Narrative Medical decision making narrative: 58-year-old male presented here with distended abdomen. Chest x-ray did show possible infiltration as well as pulmonary effusion. Bedside ultrasound also showed ascites. At this time is not enough to tap due to patient having difficult time breathing and increased ascites and poor outpatient follow-up with pulmonology so admission for possible future Thor or paracentesis will be needed. Patient did have an elevated bicarbonate was likely secondary to being a chronic retainer due to having history of COPD and being on BiPAP at home. Patient's labs did show an elevated ammonia but it is lower compared to previous. Patient also had CT abdomen and pelvis done which did show possible loculation on the right lower lobe. Due to this we started broad-spectrum antibiotics after getting blood cultures this included Zosyn, Levaquin, vancomycin. Also there did not seem to be enough ascitic fluid that needed paracentesis at this time. Spoke with the hospitalist who agreed to admit the patient to their service. Patient is admitted in stable condition Bedside ultrasound was done of the abdomen. Right renal hepatic space did show mild amounts of fluid around the liver, left splenic renal recess also showed fluid around the area but not neck to give via paracentesis. Mild fluid was seen in the pelvis again not enough to give via paracentesis. There was mild fluid seen in the supra diaphragmatic area of the lungs again not enough fluid to get via thoracentesis. Impression: Mild ascites and pleural effusions not needing Thor or paracentesis at this time. Chest X-Ray 05/24/18 14:23 IMPRESSION: Bibasilar airspace disease, left greater than right with a left-sided moderate pleural effusion. Cardiomegaly with central vascular congestion. D/ / Coy Aguila MD / Coy Aguila MD Interpreting Provider: Coy Aguila MD - Medical Records Medical records reviewed: Yes I reviewed the patient's medical records. - Lab Data Lab results reviewed: Yes I reviewed the patient's lab results. Result diagrams: 05/24/18 14:49 05/24/18 14:49 Lab Results 05/24/18 05/24/18 05/24/18 Range/Units 14:49 14:49 14:49 WBC 3.6 L (4.3-11.1) K/mcL RBC 3.18 L (4.19-5.50) M/mcL Hgb 9.4 L (12.9-16.9) g/dL Hct 30.9 L (37.5-50.1) % MCV 97.2 (83.0-100.0) fL MCH 29.6 (28.0-33.3) pg MCHC 30.4 L (31.6-35.5) g/dL RDW 15.9 H (11.5-14.5) % Plt Count 66 L (140-400) K/mcL MPV 9.9 (9.4-12.4) fL Immature Gran % 1.1 (0-4) % Seg Neutrophils % 60.6 % Lymphocytes % 25.5 % Monocytes % 9.6 % Eosinophils % 2.7 % Basophils % 0.5 % Neutrophils # 2.2 (1.6-8.9) K/mcL Lymphocytes # 0.9 (0.6-4.6) K/mcL Monocytes # 0.4 (0.0-1.3) K/mcL Eosinophils # 0.1 (0.0-0.6) K/mcL Basophils # 0.0 (0.0-0.2) K/mcL Immature Plt Fraction 3.4 (1.1-6.1) % Sodium 141 (136-145) mEq/L Potassium 3.9 (3.5-5.1) mEq/L Chloride 94 L (98-107) mEq/L Carbon Dioxide 45 H* (23-29) mEq/L BUN 14 (6-20) mg/dL Creatinine 0.88 (0.70-1.30) mg/dL Est GFR ( Amer) > 60 (> 60) Est GFR (Non-Af Amer) > 60 (> 60) BUN/Creatinine Ratio 16 (6-26) Glucose 148 H (70-105) mg/dL Calculated Osmolality 295 (280-300) Calcium 9.7 (8.6-10.3) mg/dL Total Bilirubin 2.3 H (0.3-1.0) mg/dL AST 16 (13-39) Units/L ALT 13 (7-52) Units/L Alkaline Phosphatase 113 H (34-104) Units/L Ammonia 55 H (16-53) mcmol/L Serum Total Protein 6.1 L (6.4-8.9) g/dL Albumin 4.0 (3.5-5.7) g/dL Globulin 2.1 L (2.4-3.5) g/dL Albumin/Globulin Ratio 1.9 (1.1-2.2) - Radiology Data Radiology results reviewed: Yes I reviewed the patient's radiology results.
[2018-05-24 15:00] LABS: Basophils % 0.5 %; Eosinophils % 2.7 %
[2018-05-24 15:01] LABS: Eosinophils # 0.1 K/mcL (0.0-0.6); Hematocrit 30.9 % (37.5-50.1); Hemoglobin 9.4 g/dL (12.9-16.9); Immature Granulocytes % 1.1 % (0-4); Immature Platelets 3.4 % (1.1-6.1); Lymphocytes # 0.9 K/mcL (0.6-4.6); Lymphocytes % 25.5 %; Mean Corpuscular HGB Conc 30.4 g/dL (31.6-35.5); Mean Corpuscular Hemoglobin 29.6 pg (28.0-33.3); Mean Corpuscular Volume 97.2 fL (83.0-100.0); Mean Platelet Volume 9.9 fL (9.4-12.4); Monocytes # 0.4 K/mcL (0.0-1.3); Monocytes % 9.6 %; Neutrophils # 2.2 K/mcL (1.6-8.9); Red Blood Count 3.18 M/mcL (4.19-5.50); Red Cell Distribution Width 15.9 % (11.5-14.5); Segmented Neutrophils % 60.6 %
[2018-05-24 15:04] LABS: Platelet Count 66 K/mcL (140-400)
[2018-05-24 15:18] LABS: Alanine Aminotransferase 13 Units/L (7-52); Albumin/Globulin Ratio 1.9 (1.1-2.2); Alkaline Phosphatase 113 Units/L (34-104); Aspartate Amino Transferase 16 Units/L (13-39); BUN/Creatinine Ratio 16 (6-26); Bilirubin,Total 2.3 mg/dL (0.3-1.0); Blood Urea Nitrogen 14 mg/dL (6-20); Calcium 9.7 mg/dL (8.6-10.3); Carbon Dioxide 45 mEq/L (23-29); Chloride 94 mEq/L (98-107); Globulin 2.1 g/dL (2.4-3.5); Glucose 148 mg/dL (70-105); Osmolality,Calculated 295 (280-300); Potassium 3.9 mEq/L (3.5-5.1); Sodium 141 mEq/L (136-145); Total Protein 6.1 g/dL (6.4-8.9); eGFR For Non-African Americans > 60 (> 60)
[2018-05-24] MEDS ORDERED: Levofloxacin 750 MG/150 ML 750 MG/150 ML BAG IVPB ONE (16:30)
[2018-05-24] MEDS ORDERED: Vancomycin 1,750 MG in 0.9 % Sodium Chloride 250 ML IVPB ONE (16:30)
[2018-05-24] MEDS ORDERED: Piperacillin/Tazobactam 3.375 GM in Water for inj. (sterile) 20 ML 20 ML IVPB ONE (16:30)
[2018-05-24] MEDS ORDERED: *HR* OxyCODONE/APAP 10/325 TABLET PO PRN (17:10)
[2018-05-24] MEDS ORDERED: *HR* Dextrose 50 % in Water (Syg) 50 ML SYRINGE IVP PRN (17:12)
[2018-05-24] MEDS ORDERED: D5% in Water 1,000 ML IVC PRN (17:12)
[2018-05-24] MEDS ORDERED: Dextrose Gel 15 GM/37.5 ML TUBE PO PRN ×2 (17:12)
[2018-05-24] MEDS ORDERED: Naloxone 0.4 MG/ML INJ IVP PRN (17:14)
--- NOTE | 2018-05-24 17:45 | Emergency Department Note ---
Disposition Clinical Impression: HCAP (healthcare-associated pneumonia), Pleural effusion Cirrhosis Qualifiers: Hepatic cirrhosis type: unspecified hepatic cirrhosis Ascites presence: with ascites Qualified Code(s): K74.60 - Unspecified cirrhosis of liver Pneumonia Qualifiers: Pneumonia type: due to unspecified organism Laterality: right Lung location: lower lobe of lung Qualified Code(s): J18.1 - Lobar pneumonia, unspecified organism Disposition: Admitted As Inpatient Condition: Good Referrals: Derick Ellis DO [Primary Care Provider] - General Adult HPI - General Chief complaint: ED Abdominal Pain Stated complaint: JEANNE,Liver problems Time Seen by Provider: 05/24/18 14:11 Source: patient Mode of arrival: ambulatory Limitations: no limitations - History of Present Illness Pain Scale: 0 - Related Data Home Medications Medication Instructions Recorded Confirmed ALPRAZolam [Xanax 1 MG Tablet] 1 mg PO BID PRN 05/09/15 05/24/18 Atorvastatin Calcium [Lipitor] 20 mg PO HS 05/09/15 05/24/18 Metformin HCl [Glucophage] 1,000 mg PO BID 05/09/15 05/24/18 Oxygen 3 l NS HS 03/26/16 05/24/18 Spironolactone [Aldactone] 100 mg PO DAILY 03/26/16 05/24/18 OxyCODONE/APAP 10/325 [Percocet 1 tab PO Q6H PRN 07/30/16 05/24/18 10/325 MG] Furosemide [Lasix] 40 mg PO DAILY 12/24/16 05/24/18 Insulin Glargine,Hum.rec.anlog 50 unit SQ BID 12/24/16 05/24/18 [Lantus Solostar] Gabapentin [Neurontin] 300 mg PO BID 07/15/17 05/24/18 Sucralfate [Carafate] 1 gm PO TID 03/09/18 05/24/18 Aspirin 81 mg PO AD 03/26/18 05/24/18 Lactulose [Kristalose] 20 gm PO TID 03/26/18 05/24/18 Pantoprazole Sodium [Protonix] 40 mg PO DAILY 03/26/18 05/24/18 Metoprolol [Lopressor] 75 mg PO BID 05/01/18 05/24/18 Nitroglycerin [Nitromist] 4.1 gm TL AD PRN 05/01/18 05/24/18 Insulin Regular, Human [Novolin R] 0 unit SQ TIDWM PRN 05/24/18 05/24/18 Previous Rx's Medication Instructions Recorded Prochlorperazine Maleate 1 tab PO Q6HR PRN #30 tablet 05/07/17 [Compazine] Levothyroxine [Synthroid] 88 mcg PO 0630 #30 tablet 11/23/17 Ibrutinib [Imbruvica] 420 mg PO DAILY #30 tablet 05/21/18 Allergies Allergy/AdvReac Type Severity Reaction Status Date / Time naproxen Allergy Mild Hives Verified 05/10/18 09:05 rituximab Allergy Mild Hives Verified 05/10/18 09:05 JUAN RAMON Inhibitors AdvReac Mild NECK PAIN Verified 05/10/18 09:05 cefdinir AdvReac Mild Dizziness Verified 05/10/18 09:05 hydrocodone AdvReac Mild Vomiting Verified 05/10/18 09:05 levofloxacin AdvReac Mild Dizziness Verified 05/10/18 09:05 ramipril [From Altace] AdvReac Mild NECK PAIN Verified 05/10/18 09:05 tramadol AdvReac Mild Nausea Verified 05/10/18 09:05 doxycycline AdvReac Vomiting Verified 05/10/18 09:05 Constitutional: Denies: fever, chills, weakness, weight change Eyes: Denies: eye pain, eye discharge, vision change ENT ED: Denies: ear pain, throat pain, dental pain, hearing loss, epistaxis, congestion, dysphagia Cardiovascular: Reports: dyspnea on exertion. Denies: chest pain, palpitations , edema, syncope Respiratory: Denies: cough, dyspnea, wheezes, hemoptysis, stridor Gastrointestinal: Denies: abdominal pain, nausea, vomiting, diarrhea, constipation, hematemesis, melena, hematochezia Genitourinary: Denies: urgency, dysuria, frequency, hematuria Musculoskeletal: Denies: back pain, neck pain, arthralgia, myalgia Integumentary: Denies: rash, abrasion, lesions Neurological: Denies: headache, weakness, numbness, paresthesias, confusion, abnormal gait, vertigo Psychiatric: Denies: anxiety, depression, suicidal thoughts, homicidal thoughts , auditory hallucinations, visual hallucinations Endocrine: Denies: fatigue Hematological/Lymphatic: Denies: easy bleeding, easy bruising Allergic/Immunologic: Denies: facial swelling, urticaria Past Medical History - Past Medical History Medical history: Reports: cancer (CLL), cirrhosis, CHF, COPD, diabetes, GERD, hyperlipidemia, hypertension, kidney stones, myocardial infarction Surgical history: Reports: LE stent(s) Psychiatric history: Reports: depression - Social History Smoking Status: Former smoker Smokeless Tobacco Status: No Alcohol use: Reports: none Drug use: Reports: none Physical Exam - General Limitations: no limitations General appearance: alert, in no apparent distress Course Vital Signs Temperature 98.9 F 05/24/18 14:04 Pulse Rate 73 05/24/18 14:04 Respiratory Rate 20 05/24/18 14:04 Blood Pressure 143/74 05/24/18 14:04 O2 Sat by Pulse Oximetry 96 05/24/18 14:04 Temperature 98.9 F 05/24/18 14:52 Pulse Rate 73 05/24/18 17:00 Respiratory Rate 18 05/24/18 17:00 Blood Pressure 115/48 05/24/18 17:00 O2 Sat by Pulse Oximetry 100 05/24/18 17:00 Oxygen Delivery Oxygen Delivery Nasal Cannula Medical Decision Making - Lab Data Result diagrams: 05/24/18 14:49 05/24/18 14:49 Lab Results 05/24/18 05/24/18 05/24/18 Range/Units 14:49 14:49 14:49 WBC 3.6 L (4.3-11.1) K/mcL RBC 3.18 L (4.19-5.50) M/mcL Hgb 9.4 L (12.9-16.9) g/dL Hct 30.9 L (37.5-50.1) % MCV 97.2 (83.0-100.0) fL MCH 29.6 (28.0-33.3) pg MCHC 30.4 L (31.6-35.5) g/dL RDW 15.9 H (11.5-14.5) % Plt Count 66 L (140-400) K/mcL MPV 9.9 (9.4-12.4) fL Immature Gran % 1.1 (0-4) % Seg Neutrophils % 60.6 % Lymphocytes % 25.5 % Monocytes % 9.6 % Eosinophils % 2.7 % Basophils % 0.5 % Neutrophils # 2.2 (1.6-8.9) K/mcL Lymphocytes # 0.9 (0.6-4.6) K/mcL Monocytes # 0.4 (0.0-1.3) K/mcL Eosinophils # 0.1 (0.0-0.6) K/mcL Basophils # 0.0 (0.0-0.2) K/mcL Immature Plt Fraction 3.4 (1.1-6.1) % Sodium 141 (136-145) mEq/L Potassium 3.9 (3.5-5.1) mEq/L Chloride 94 L (98-107) mEq/L Carbon Dioxide 45 H* (23-29) mEq/L BUN 14 (6-20) mg/dL Creatinine 0.88 (0.70-1.30) mg/dL Est GFR ( Amer) > 60 (> 60) Est GFR (Non-Af Amer) > 60 (> 60) BUN/Creatinine Ratio 16 (6-26) Glucose 148 H (70-105) mg/dL Calculated Osmolality 295 (280-300) Calcium 9.7 (8.6-10.3) mg/dL Total Bilirubin 2.3 H (0.3-1.0) mg/dL AST 16 (13-39) Units/L ALT 13 (7-52) Units/L Alkaline Phosphatase 113 H (34-104) Units/L Ammonia 55 H (16-53) mcmol/L Serum Total Protein 6.1 L (6.4-8.9) g/dL Albumin 4.0 (3.5-5.7) g/dL Globulin 2.1 L (2.4-3.5) g/dL Albumin/Globulin Ratio 1.9 (1.1-2.2) Attestation Statement - Attestation Attestation: I examined this patient and my medical decision-making was reviewed with the Resident Physician. I agree with the documented findings, disposition and treatment plan as described except to the extent set forth below. Patient to the ED with a chief complaint of abdominal pain. Patient states his abdomen is swollen over the last few days. He short of breath again as well. Patient had a recent admission where he required dialysis and thoracentesis. On exam his abdomen is distended. Nontender. Lungs diminished at bases. He is in no distress. Plan. Chest x-ray shows a possible infiltrate. We did get a CT of his abdomen pelvis which shows an effusion and a possible infiltrate. This could be accounting for shortness of breath. He does not have a large amount of ascites that would benefit from paracentesis at this time. Patient is admitted for treatment for hospital-acquired pneumonia.
--- NOTE | 2018-05-24 17:48 | Internal Med History&Physical ---
Date of Encounter: 05/24/18 Time of Encounter: 17:48 Internal Medicine - H&P: HPI Chief complaint: Abdominal distention Admitted From: Home Plans for Post Hospital Care: Home History of present illness: Mr. Fang is a 58 year old male with medical history of decompensated liver cirrhosis, pancytopenia, diabetes mellitus, coronary artery disease, hyperlipidemia, hypertension, COPD, hypothyroidism, obesity, chronic hypoxic and hypercapneic respiratory failure on home oxygen and BiPAP. Patient was recently discharged from this facility 05/06/18 after being managed for sepsis secondary to pneumonia with pleural effusion that was drained, with negative cultures. The patient reports feeling improvement since discharge until about 3 days ago when he developed worsening abdominal distention. He reports feeling like a gas bubble and feeling very bloated in his abdomen. He thinks it might be due to his CPAP machine. He denies nausea/vomiting/diarrhea. He has at least 2 bowel movements every day with the use of lactulose. He denies cough, he denies fever or chills. Denies sick contacts. He denies shortness of breath most and his baseline. His oxygen requirement has remained the same. He denies chest pain, palpitations, dizziness or diaphoresis. He denies hematemesis or melena. he has been compliant with his medications and fluid and Na restriction He had been informed by pulmonology in the last admission that he might need a Pleurx catheter if his pleural effusion recurs. This is the third associated pleural effusion within the past 2 months. He was seen and examined at the beside with his partner who is his POA. He is FULL CODE Work up in the ER showed CBC and pancytopenia at baseline, Chronic metabolic alkalosis, LFT at baseline CXR showed bibasilar airspace disease left greater than right with left-sided moderate pleural effusion, cardiomegaly with central vascular congestion. Abdomen and pelvis CAT scan showed findings compatible with cirrhosis and portal hypertension including splenomegaly and moderate ascites. Diverticulosis without diverticulitis. Other changes are chronic. Past Med Surg Social Fam HX - Past Medical History Medical history: cancer (CLL), cirrhosis, CHF, COPD, diabetes, GERD, hyperlipidemia, hypertension, kidney stones, myocardial infarction Additional medical history: morbid obesity with BMI of 45-49 adult. history of colon polyps. stomach polyp removed. esophageal varicies banded. chronic lymphatic leukemia Psychiatric history: depression - Past Surgical History Surgical History: LE stent(s) Additional surgical history: 3 cardiac stents. left knee. Hernia repair. Kidney stones. esophageal varicies. stomach polyp removed and clamp placed - Social History Smoking Status: Former smoker Smokeless Tobacco Status: No Alcohol use: none Drug use: none - Family History Mother Family Member Ethnicity: Non- Living Status: Hx Family Respiratory Disorders: Yes (COPD) Father Family Member Ethnicity: Non- Living Status: Hx Family Cancer: Yes (Small cell lung & Throat) Brother Family Member Ethnicity: Non- Living Status: Sister Family Member Ethnicity: Non- Living Status: Hx Family Respiratory Disorders: Yes (COPD) Internal Medicine - H&P: Meds ALPRAZolam [Xanax 1 MG Tablet] 1 mg PO BID PRN 05/09/15 [History] Atorvastatin Calcium [Lipitor] 20 mg PO HS 05/09/15 [History] Metformin HCl [Glucophage] 1,000 mg PO BID 05/09/15 [History] Oxygen 3 l NS HS 03/26/16 [History] Spironolactone [Aldactone] 100 mg PO DAILY 03/26/16 [History] OxyCODONE/APAP 10/325 [Percocet 10/325 MG] 1 tab PO Q6H PRN 07/30/16 [History] Furosemide [Lasix] 40 mg PO DAILY 12/24/16 [History] Insulin Glargine,Hum.rec.anlog [Lantus Solostar] 50 unit SQ BID 12/24/16 [ History] Prochlorperazine Maleate [Compazine] 1 tab PO Q6HR PRN #30 tablet 05/07/17 [Rx] Gabapentin [Neurontin] 300 mg PO BID 07/15/17 [History] Levothyroxine [Synthroid] 88 mcg PO 0630 #30 tablet 11/23/17 [Rx] Sucralfate [Carafate] 1 gm PO TID 03/09/18 [History] Aspirin 81 mg PO AD 03/26/18 [History] Lactulose [Kristalose] 20 gm PO TID 03/26/18 [History] Pantoprazole Sodium [Protonix] 40 mg PO DAILY 03/26/18 [History] Metoprolol [Lopressor] 75 mg PO BID 05/01/18 [History] Nitroglycerin [Nitromist] 4.1 gm TL AD PRN 05/01/18 [History] Ibrutinib [Imbruvica] 420 mg PO DAILY #30 tablet 05/21/18 [Rx] Insulin Regular, Human [Novolin R] 0 unit SQ TIDWM PRN 05/24/18 [History] 3 Allergy/AdvReac Type Severity Reaction Status Date / Time naproxen Allergy Mild Hives Verified 05/10/18 09:05 rituximab Allergy Mild Hives Verified 05/10/18 09:05 JUAN RAMON Inhibitors AdvReac Mild NECK PAIN Verified 05/10/18 09:05 cefdinir AdvReac Mild Dizziness Verified 05/10/18 09:05 hydrocodone AdvReac Mild Vomiting Verified 05/10/18 09:05 levofloxacin AdvReac Mild Dizziness Verified 05/10/18 09:05 ramipril [From Altace] AdvReac Mild NECK PAIN Verified 05/10/18 09:05 tramadol AdvReac Mild Nausea Verified 05/10/18 09:05 doxycycline AdvReac Vomiting Verified 05/10/18 09:05 All Systems PM: A 10-system review of systems was performed and is negative for pertinent findings except as documented above in the HPI. - Constitutional Constitutional: as per HPI - EENT Eyes: as per HPI Ears: as per HPI Nose, mouth and throat: as per HPI - Cardiovascular Cardiovascular ROS IM: as per HPI - Respiratory Respiratory: as per HPI - Gastrointestinal Gastrointestinal: as per HPI - Musculoskeletal Musculoskeletal ROS IM: as per HPI - Integumentary Integumentary IM: as per HPI - Neurological Neurological ROS: as per HPI - Hematologic/Lymphatic Hematologic/Lymphatic: as per HPI - Constitutional Vitals: Temp Pulse Resp BP Pulse Ox 98.9 F 73 18 115/48 100 05/24/18 14:52 05/24/18 17:00 05/24/18 17:00 05/24/18 17:00 05/24/18 17:00 General appearance: Present: A&O X 3, pleasant, obese Exam: See exam - Head Head exam: Present: atraumatic, normocephalic - Eye Eye exam: Present: PERRL, conjuntiva pink, sclera anicteric Pupils: Present: PERRL - Neck Neck exam general surgery: Present: supple, trachea midline. Absent: lymphadenopathy - Respiratory Additional comments: Diminished air entry bilaterally No wheezes or crackles - Cardiovascular Cardiovascular exam: Present: RRR, +S1, +S2 - GI/Abdominal GI/Abdominal exam: Present: distended (distended+, fluid thrill), normal bowel sounds, soft, no peritoneal signs. Absent: tenderness - Extremities Exam Extremities exam: Present: pedal edema, warm, radial pulses palpable and symmetrical. Absent: calf tenderness, cyanotic - Neurological Exam Neurological exam: Present: alert, CN II-XII intact, oriented X3, no focal deficits - Skin Skin exam: Present: dry, intact Internal Med - H&P Results - Labs CBC & Chem 7: 05/24/18 14:49 05/24/18 14:49 - Assessment and plan (1) Ascites Current Visit: Yes Status: Acute Assessment and plan: moderate cirrhosis per Abd CT Patient with known cirrhosis Continue lasix at home dose IR for paracentensis a.m Qualifiers: Ascites type: other type Qualified Code(s): R18.8 - Other ascites (2) Chronic respiratory failure Current Visit: Yes Status: Chronic Assessment and plan: Continue oxygen at home dose Continue CPAP at night No increasing requirement Qualifiers: Respiratory failure complication: hypoxia and hypercapnia Qualified Code(s) : J96.11 - Chronic respiratory failure with hypoxia; J96.12 - Chronic respiratory failure with hypercapnia (3) CAD (coronary artery disease), [place] coronary artery Current Visit: Yes Status: Chronic Assessment and plan: continue home meds Qualifiers: [place] vs. transplanted heart: [place] heart Associated angina: without angina Qualified Code(s): I25.10 - Atherosclerotic heart disease of [place] coronary artery without angina pectoris (4) CHF (congestive heart failure) Current Visit: Yes Status: Chronic Assessment and plan: continue home dose of lasix Qualifiers: Heart failure type: diastolic Heart failure chronicity: chronic Qualified Code(s): I50.32 - Chronic diastolic (congestive) heart failure (5) Cirrhosis Current Visit: Yes Status: Chronic Assessment and plan: continue home meds, no encephalopathy Qualifiers: Hepatic cirrhosis type: unspecified hepatic cirrhosis Ascites presence: with ascites Qualified Code(s): K74.60 - Unspecified cirrhosis of liver; R18.8 - Other ascites (6) CLL (chronic lymphocytic leukemia) Current Visit: Yes Status: Chronic Assessment and plan: chronic, stable (7) COPD (chronic obstructive pulmonary disease) Current Visit: Yes Status: Chronic Assessment and plan: no signs of exacerbations Qualifiers: COPD type: unspecified COPD Qualified Code(s): J44.9 - Chronic obstructive pulmonary disease, unspecified (8) HLD (hyperlipidemia) Current Visit: Yes Status: Chronic Assessment and plan: continue home meds Qualifiers: Hyperlipidemia type: pure hypercholesterolemia Qualified Code(s): E78.00 - Pure hypercholesterolemia, unspecified; E78.0 - Pure hypercholesterolemia (9) HTN (hypertension) Current Visit: Yes Status: Chronic Assessment and plan: controlled, continue meds Qualifiers: Hypertension type: essential hypertension Qualified Code(s): I10 - Essential (primary) hypertension (10) Hypothyroidism Current Visit: Yes Status: Chronic Assessment and plan: continue home meds Qualifiers: Hypothyroidism type: unspecified Qualified Code(s): E03.9 - Hypothyroidism , unspecified (11) Pancytopenia due to chemotherapy Current Visit: Yes Status: Chronic Assessment and plan: CBC at baseline (12) Pleural effusion Current Visit: Yes Status: Acute Assessment and plan: REcurrent, transudative from last admission Some loculation this time Thoracic surgery consulted for possible pleurodesis (13) Pneumonia Current Visit: Yes Status: Suspected Assessment and plan: Suspected Patient denies cough, fever, chills, no SOB above baseline Hx of PNA in 8/9 H.influenza in pleural fluid in 02/2018 Received vanco/Zosyn/Levaquin in ER Blood cultures drawn Continue Cefepime and vanco Follow culture reports of blood and send pleural fluid for work up Patient is not septic at this time and is clinically stable Qualifiers: Pneumonia type: due to unspecified organism Laterality: right Lung location: lower lobe of lung Qualified Code(s): J18.1 - Lobar pneumonia, unspecified organism - Time Spent With Patient Total time spent is greater than 50% in coordination of care (as documented) at patient's floor/unit and/or counseling patient:
[2018-05-24] MEDS ORDERED: Ipratropium/Albuterol Neb 3 ML IH PRN (18:13)
[2018-05-24] MEDS: Lactulose Oral Soln 20 GM/30 ML UDC PO SCH (20:31)
[2018-05-24] MEDS: Insulin DETEMIR 100 UNIT/ML X5UNITS SQ SCH (20:31)
[2018-05-24] MEDS: Sucralfate 1 GM TABLET PO SCH (20:31)
[2018-05-24] MEDS: Gabapentin 300 MG CAPSULE PO SCH (20:31)
[2018-05-24] MEDS: Insulin LISPRO 300 UNITS/3 ML VIAL SQ SCH (20:32)
[2018-05-24] MEDS: Aspirin 81 MG TAB.CHEW PO SCH (20:34)
[2018-05-24] MEDS: Cefepime HCl 1,000 MG in Water for inj. (sterile) 20 ML 10 ML IVP SCH (23:59)
[2018-05-25] MEDS: ALPRAZolam 1 MG TABLET PO PRN
[2018-05-25 06:00] LABS: Basophils % 0.3 %; Eosinophils % 3.1 %; Immature Granulocytes % 1.4 % (0-4)
[2018-05-25 06:03] LABS: Eosinophils # 0.1 K/mcL (0.0-0.6); Hematocrit 27.8 % (37.5-50.1); Hemoglobin 8.5 g/dL (12.9-16.9); INR 1.2; Immature Platelets 3.7 % (1.1-6.1); Lymphocytes % 33.7 %; Mean Corpuscular HGB Conc 30.6 g/dL (31.6-35.5); Mean Corpuscular Volume 98.2 fL (83.0-100.0); Mean Platelet Volume 9.6 fL (9.4-12.4); Monocytes # 0.3 K/mcL (0.0-1.3); Monocytes % 11.1 %; Neutrophils # 1.5 K/mcL (1.6-8.9); Prothrombin Time 13.5 Seconds (9.4-12.1); Red Blood Count 2.83 M/mcL (4.19-5.50); Red Cell Distribution Width 15.9 % (11.5-14.5); Segmented Neutrophils % 50.4 %
[2018-05-25 06:11] LABS: Platelet Count 59 K/mcL (140-400)
[2018-05-25 06:25] LABS: BUN/Creatinine Ratio 14 (6-26); Blood Urea Nitrogen 13 mg/dL (6-20); Calcium 9.1 mg/dL (8.6-10.3); Carbon Dioxide 41 mEq/L (23-29); Chloride 97 mEq/L (98-107); Glucose 134 mg/dL (70-105); Osmolality,Calculated 298 (280-300); Potassium 3.7 mEq/L (3.5-5.1); Sodium 143 mEq/L (136-145); eGFR For Non-African Americans > 60 (> 60)
[2018-05-25] MEDS: Insulin LISPRO 300 UNITS/3 ML VIAL SQ SCH ×7 (07:48→20:50)
[2018-05-25] MEDS: Cefepime HCl 1,000 MG in Water for inj. (sterile) 20 ML 10 ML IVP SCH (07:54)
[2018-05-25] MEDS: Aspirin 81 MG TAB.CHEW PO SCH (07:55)
[2018-05-25] MEDS: Gabapentin 300 MG CAPSULE PO SCH ×2 (07:56→20:51)
[2018-05-25] MEDS: Ibrutinib [Imbruvica] 420 MG PO SCH (07:56)
[2018-05-25] MEDS: Sucralfate 1 GM TABLET PO SCH ×4 (07:56→15:52)
[2018-05-25] MEDS: Furosemide 40 MG TABLET PO SCH (07:56)
[2018-05-25] MEDS: Lactulose Oral Soln 20 GM/30 ML UDC PO SCH ×2 (07:57→15:52)
[2018-05-25] MEDS ORDERED: *HR* OxyCODONE/APAP 10/325 TABLET PO PRN (08:10)
[2018-05-25] MEDS ORDERED: Vancomycin 1,750 MG in 0.9 % Sodium Chloride 250 ML IVPB SCH (09:00)
--- NOTE | 2018-05-25 13:56 | Cardiothoracic Consult Note ---
Date of Encounter: 05/25/18 Time of Encounter: 13:50 Assessment and Plan (1) Decompensation of cirrhosis of liver Current Visit: No Status: Acute The assessment and plan as outlined above was discussed with the patient and/or family members who expressed understanding and agreement. All questions were answered. A chest tube with sclerosis is contraindicated for the left pleural effusion. Thoracentesis may be helpful. A Pleurex catheter would be another option. TIPPS would help both the ascites and pleural effusion. If thoracentesis is felt to be beneficial, it should be done under sono guidance in interventional radiology. - History of Present Illness History of present illness: Mr. Fang is a 58 year old male The patient is a 58-year-old gentleman with a history of cirrhosis who presented with ascites and abdominal distention. He is status post paracentesis today with tap of 5 L of ascites fluid. He is also had some shortness of breath. Chest x-ray and CT scan reveal a xoick-wf-stodners left pleural effusion. I was counseled then for this. The cause of the cirrhosis is unclear. The patient has never been a heavy drinker. He states that he thinks it is secondary to a medication. The patient does use oxygen at home. He was recently admitted with pneumonia. He does have a history of heart stents and a myocardial infarction. He also has CLL and is due to start chemotherapy soon. Social history. He lives in [place] with his . Does not drink and quit smoking 14 years ago. Past Med Surg Social Fam HX - Past Medical History Medical history: cancer, cirrhosis, CHF, COPD, diabetes, GERD, hyperlipidemia, hypertension, kidney stones, myocardial infarction Additional medical history: morbid obesity with BMI of 45-49 adult. history of colon polyps. stomach polyp removed. esophageal varicies banded. chronic lymphatic leukemia Psychiatric history: depression - Past Surgical History Surgical History: LE stent(s) Additional surgical history: 3 cardiac stents. left knee. Hernia repair. Kidney stones. esophageal varicies. stomach polyp removed and clamp placed - Social History Smoking Status: Former smoker Smokeless Tobacco Status: No Alcohol use: none Drug use: none - Family History Mother Family Member Ethnicity: Non- Living Status: Hx Family Respiratory Disorders: Yes (COPD) Father Family Member Ethnicity: Non- Living Status: Hx Family Cancer: Yes (Small cell lung & Throat) Brother Family Member Ethnicity: Non- Living Status: Sister Family Member Ethnicity: Non- Living Status: Hx Family Respiratory Disorders: Yes (COPD) Medications and Allergies ALPRAZolam [Xanax 1 MG Tablet] 1 mg PO BID PRN 05/09/15 [History] Atorvastatin Calcium [Lipitor] 20 mg PO HS 05/09/15 [History] Metformin HCl [Glucophage] 1,000 mg PO BID 05/09/15 [History] Oxygen 3 l NS HS 03/26/16 [History] Spironolactone [Aldactone] 100 mg PO DAILY 03/26/16 [History] OxyCODONE/APAP 10/325 [Percocet 10/325 MG] 1 tab PO Q6H PRN 07/30/16 [History] Furosemide [Lasix] 40 mg PO DAILY 12/24/16 [History] Insulin Glargine,Hum.rec.anlog [Lantus Solostar] 50 unit SQ BID 12/24/16 [ History] Prochlorperazine Maleate [Compazine] 1 tab PO Q6HR PRN #30 tablet 05/07/17 [Rx] Gabapentin [Neurontin] 300 mg PO BID 07/15/17 [History] Levothyroxine [Synthroid] 88 mcg PO 0630 #30 tablet 11/23/17 [Rx] Sucralfate [Carafate] 1 gm PO TID 03/09/18 [History] Aspirin 81 mg PO AD 03/26/18 [History] Lactulose [Kristalose] 20 gm PO TID 03/26/18 [History] Pantoprazole Sodium [Protonix] 40 mg PO DAILY 03/26/18 [History] Metoprolol [Lopressor] 75 mg PO BID 05/01/18 [History] Nitroglycerin [Nitromist] 4.1 gm TL AD PRN 05/01/18 [History] Ibrutinib [Imbruvica] 420 mg PO DAILY #30 tablet 05/21/18 [Rx] Insulin Regular, Human [Novolin R] 0 unit SQ TIDWM PRN 05/24/18 [History] 3 Allergy/AdvReac Type Severity Reaction Status Date / Time naproxen Allergy Mild Hives Verified 05/10/18 09:05 rituximab Allergy Mild Hives Verified 05/10/18 09:05 JUAN RAMON Inhibitors AdvReac Mild NECK PAIN Verified 05/10/18 09:05 cefdinir AdvReac Mild Dizziness Verified 05/10/18 09:05 hydrocodone AdvReac Mild Vomiting Verified 05/10/18 09:05 levofloxacin AdvReac Mild Dizziness Verified 05/10/18 09:05 ramipril [From Altace] AdvReac Mild NECK PAIN Verified 05/10/18 09:05 tramadol AdvReac Mild Nausea Verified 05/10/18 09:05 doxycycline AdvReac Vomiting Verified 05/10/18 09:05 All Systems Review: The remainder of the systems were reviewed and are negative Physical Examination Vital Signs, Last 4 Hours Temp Pulse Resp BP Pulse Ox 05/25/18 12:07 98.0 F 67 18 122/68 99 Lungs have slight decreased breath sounds at the left base. Clear to percussion. Heart is in a regular rate and rhythm. Abdomen is distended. No tenderness, rebound or guarding. Results 05/25/18 05:30 05/25/18 05:30 Lab Results, Last 24 hours 05/25/18 05/25/18 05/25/18 05:30 05:30 05:30 WBC 2.9 L Hgb 8.5 L Hct 27.8 L Plt Count 59 L INR 1.2 Sodium 143 Potassium 3.7 Chloride 97 L Carbon Dioxide 41 H* BUN 13 Creatinine 0.93 Glucose 134 H Calcium 9.1 Consult Discharge Plan - Plan Referrals: Derick Ellis DO [Primary Care Provider] -
--- NOTE | 2018-05-25 16:07 | Internal Med Progress Note ---
<Contreras Ponce M - Last Filed: 05/25/18 18:24> Hospitalist Progress Note - Encounter Date of Encounter: 05/25/18 Time of Encounter: 10:00 - Subjective Interval History: Patient seen and examined at bedside. Patient comfortable without any new or worsening complaints at this time. States his abdomen is less tender though he is still feeling bloated. Admits to some exertional dyspnea, thought presently comfortable on 4L. Denies chest pain, headaches, hematemesis, melena, palpitations, dizziness, confusion, nausea, vomiting. Patient is not experiencing any chills and is afebrile on exam without cough, wheeze or SOB at rest. We talked at great length about the etiology of his symptoms and steps he can take for risk reduction, particularly relating to nutritional status. Discussed the possible interventions available at this time with the patient including Pleurex catheter vs TIPPS. CT surgery and GI were both consulted today and both spoke with the patient regarding risks/benefits/options. At this time, the patient voices understanding of the procedures and states he would be amenable to the TIPPS. Will speak to IR in the morning. - Exam Vitals: Temp Pulse Resp BP Pulse Ox 97.4 F L 76 19 124/65 92 05/25/18 15:40 05/25/18 15:40 05/25/18 15:40 05/25/18 15:40 05/25/18 15:40 Exam: General: alert, oriented, cooperative Head: atraumatic, normocephalic Eyes: non-icteric Neck: supple, full ROM, Trachea midline, no JVD appreciated, mild supraclavicular lymphadenopathy Heart: RRR, normal s1 s2, no murmurs gallops rubs Resp: diminished BS bilaterally at the bases, no wheezes ABD: moderately distended, mildly tender to palpation, no guarding rigidity or rebound, -fluid wave Skin: no rashes, lesions, or open sores; Mild Venous stasis Dermatitis of right leg Extremities: +1 pretibial pitting edema, +5/5 strength all extremities, sensation intact - Assessment and Plan (1) Ascites Current Visit: Yes Status: Acute Assessment and Plan: Known history of Cirrhosis - Moderate Cirrhosis per Abd CT - IR performed Paracentesis today without complication; 4.6L removed - Continue Lasix at home does - GI consulted for possible TIPPS; appreciate recs (2) Pleural effusion associated with hepatic disorder Current Visit: Yes Status: Chronic Assessment and Plan: Known history of Cirrhosis - Recurrent Pleural Effusions, most recent 05/06 - Transudative on last admission, pleural culture negative - CT surgery consulted; appreciate Recs - Plan for eventual TIPS Code(s): K76.9 - Liver disease, unspecified; J91.8 - Pleural effusion in other conditions classified elsewhere (3) Cirrhosis Current Visit: Yes Status: Chronic Assessment and Plan: Known history of Cirrhosis - On admission: ammonia 55, Serum Protein 6.1, Alk. Phos. 113 - No evidence of encephalopathy at this time - GI consulted for possible TIPS; appreciate recs - continue home lactulose; decrease from TID to BID d/t increasing BM urgency/ frequency - Monitor for signs of altered mental status (4) Pneumonia Current Visit: Yes Status: Suspected Assessment and Plan: Cannot rule out infectious process - DC'd 2 weeks d/t sepsis / PNA - Blood culture positive for H. Flu 02/2018 - Blood cultures drawn, awaiting results - Received Vanco/Zosyn/Levaquin in ED - Patient is not septic at this time; vitals stable - Denies fever/chills/cough; SOB at baseline - ABX being held at this time - Monitor vitals (5) CLL (chronic lymphocytic leukemia) Current Visit: Yes Status: Chronic Assessment and Plan: Known history of CLL - CBC/labs unchanged from baseline - Plt 59 on admission, no signs of bleeding - Rpt CBC to trend Platelets (6) CAD (coronary artery disease), [place] coronary artery Current Visit: Yes Status: Chronic Assessment and Plan: Known history of CAD - No s/s of ACS at this time - Patient has multiple risk factors - Continue home meds (7) Chronic respiratory failure Current Visit: Yes Status: Chronic Assessment and Plan: Known history of chronic respiratory failure - patient is 4L at home; required just 2L last month - Continue CPAP at night - Continue oxygen; attempt to wean to 2L as tolerated (8) CHF (congestive heart failure) Current Visit: Yes Status: Chronic Assessment and Plan: Known history of CHF - Last echo: EF 50% - Denies PND, Orthopnea; no crackles on exam - Mildly edematous lower extremities; likely 2/2 low serum protein - Continue home lasix (9) Hypercapnia Current Visit: Yes Status: Chronic Assessment and Plan: Known history of Hypercapnia - Patient has chronically elevated CO2 - Likely 2/2 respiratory compensation in setting of metabolic alkalosis - Cannot r/o acute hypercapnic respiratory failure - no ABG indicated at this time; continue to monitor Code(s): R06.89 - Other abnormalities of breathing (10) Pancytopenia due to chemotherapy Current Visit: Yes Status: Chronic Assessment and Plan: Known history of CLL - CBC is unchanged from baseline - Plt 59; no evidence of bleeding - continue to monitor Code(s): D61.810 - Antineoplastic chemotherapy induced pancytopenia (11) Portal hypertension Current Visit: Yes Status: Chronic Assessment and Plan: Known history of Portal Hypertension - 2/2 cirrhosis, stable since last admission - no history of hematemesis or melana Code(s): K76.6 - Portal hypertension (12) HTN (hypertension) Current Visit: Yes Status: Chronic Assessment and Plan: Known history of Hypertension - continue home meds - last BP 124/65; stable - continue to monitor (13) HLD (hyperlipidemia) Current Visit: Yes Status: Chronic Assessment and Plan: Known history of Hyperlipidemia - continue home meds - Time Spent with Patient Total time spent is greater than 50% in coordination of care (as documented) at patient's floor/unit and/or counseling patient: Internal Medicine: Result - Labs CBC & Chem 7: 05/25/18 05:30 05/25/18 05:30 Labs: Short CBC 05/25/18 Range/Units 05:30 WBC 2.9 L (4.3-11.1) K/mcL Hgb 8.5 L (12.9-16.9) g/dL Hct 27.8 L (37.5-50.1) % Plt Count 59 L (140-400) K/mcL Neutrophils # 1.5 L (1.6-8.9) K/mcL BMP 05/25/18 05:30 Sodium 143 Potassium 3.7 Chloride 97 L Carbon Dioxide 41 H* BUN 13 Creatinine 0.93 Glucose 134 H Calcium 9.1 - ABG Interpretation ABG results: PT/INR, D-dimer PT 13.5 Seconds (9.4-12.1) H 05/25/18 05:30 - Impressions Impressions Paracentesis Ultrasound 05/24/18 17:49 IMPRESSION: Successful ultrasound guided paracentesis. D/ / Juan Carlos Salinas MD / Juan Carlos Salinas MD Interpreting Provider: Juan Carlos Salinas MD - VTE Documentation of Mechanical Device: Intermittent pneumatic compression device Consult Discharge Plan - Plan Referrals: Derick Ellis DO [Primary Care Provider] - <Orlando Riuz - Last Filed: 05/25/18 19:30> Hospitalist Progress Note - Encounter Date of Encounter: 05/25/18 - Exam Vitals: Temp Pulse Resp BP Pulse Ox 97.4 F L 76 19 124/65 92 05/25/18 15:40 05/25/18 15:40 05/25/18 15:40 05/25/18 15:40 05/25/18 15:40 - Assessment and Plan (1) CLL (chronic lymphocytic leukemia) Current Visit: Yes Status: Chronic (2) Cirrhosis Current Visit: Yes Status: Chronic (3) Hypothyroidism Current Visit: Yes Status: Chronic (4) Pneumonia Current Visit: Yes Status: Resolved (5) Pleural effusion Current Visit: Yes Status: Acute (6) CHF (congestive heart failure) Current Visit: Yes Status: Chronic (7) COPD (chronic obstructive pulmonary disease) Current Visit: Yes Status: Chronic (8) HTN (hypertension) Current Visit: Yes Status: Chronic (9) HLD (hyperlipidemia) Current Visit: Yes Status: Chronic (10) CAD (coronary artery disease), [place] coronary artery Current Visit: Yes Status: Chronic (11) Pancytopenia due to chemotherapy Current Visit: Yes Status: Chronic (12) Chronic respiratory failure Current Visit: Yes Status: Chronic (13) Ascites Current Visit: Yes Status: Acute (14) Portal hypertension Current Visit: Yes Status: Chronic - Time Spent with Patient Total time spent is greater than 50% in coordination of care (as documented) at patient's floor/unit and/or counseling patient: Internal Medicine: Result - Labs CBC & Chem 7: 05/25/18 05:30 05/25/18 05:30 Labs: Short CBC 05/25/18 Range/Units 05:30 WBC 2.9 L (4.3-11.1) K/mcL Hgb 8.5 L (12.9-16.9) g/dL Hct 27.8 L (37.5-50.1) % Plt Count 59 L (140-400) K/mcL Neutrophils # 1.5 L (1.6-8.9) K/mcL BMP 05/25/18 05:30 Sodium 143 Potassium 3.7 Chloride 97 L Carbon Dioxide 41 H* BUN 13 Creatinine 0.93 Glucose 134 H Calcium 9.1 - ABG Interpretation ABG results: PT/INR, D-dimer PT 13.5 Seconds (9.4-12.1) H 05/25/18 05:30 - Impressions Impressions Paracentesis Ultrasound 05/24/18 17:49 IMPRESSION: Successful ultrasound guided paracentesis. D/ / Juan Carlos Salinas MD / Juan Carlos Salinas MD Interpreting Provider: Juan Carlos Salinas MD - Attending Attestation The history, physical exam, and medical decision making was performed by the medical student either while I was physically present and actively involved or I personally re-performed the exam and medical decision making. I have verified the accuracy of the medical student's documentation with regards to the history, physical exam findings, and medical decision making on 05/25/18. Mr Fang is currently in observation for recurrent pleural effusions due to cirrhosis and ascites. He remains moderate to high risk. Mr Fang had paracentesis today - 4600 out. No fever or chills. No cough. No diarrhea. Exam Alert Comfortable Mucus membranes dry Heart distant and regular Lungs diminished Abd soft Edema present I/P 1. Cirrhosis with portal HTN - TIPS recommended 2. Ascites 3. Pleural effusion Further diagnose and plan as above. <Contreras Ponce - Last Filed: 05/25/18 18:24> (1) Ascites Qualifiers: Ascites type: other type Qualified Code(s): R18.8 - Other ascites (3) Cirrhosis Qualifiers: Hepatic cirrhosis type: unspecified hepatic cirrhosis Ascites presence: with ascites Qualified Code(s): K74.60 - Unspecified cirrhosis of liver; R18.8 - Other ascites (4) Pneumonia Qualifiers: Pneumonia type: due to unspecified organism Laterality: right Lung location : lower lobe of lung Qualified Code(s): J18.1 - Lobar pneumonia, unspecified organism (6) CAD (coronary artery disease), [place] coronary artery Qualifiers: [place] vs. transplanted heart: [place] heart Associated angina: without angina Qualified Code(s): I25.10 - Atherosclerotic heart disease of [place] coronary artery without angina pectoris (7) Chronic respiratory failure Qualifiers: Respiratory failure complication: hypoxia and hypercapnia Qualified Code(s): J96.11 - Chronic respiratory failure with hypoxia; J96.12 - Chronic respiratory failure with hypercapnia (8) CHF (congestive heart failure) Qualifiers: Heart failure type: diastolic Heart failure chronicity: chronic Qualified Code(s): I50.32 - Chronic diastolic (congestive) heart failure (12) HTN (hypertension) Qualifiers: Hypertension type: essential hypertension Qualified Code(s): I10 - Essential (primary) hypertension (13) HLD (hyperlipidemia) Qualifiers: Hyperlipidemia type: pure hypercholesterolemia Qualified Code(s): E78.00 - Pure hypercholesterolemia, unspecified <Orlnado Ruiz - Last Filed: 05/25/18 19:30> (2) Cirrhosis Qualifiers: Hepatic cirrhosis type: unspecified hepatic cirrhosis Ascites presence: with ascites Qualified Code(s): K74.60 - Unspecified cirrhosis of liver; R18.8 - Other ascites (3) Hypothyroidism Qualifiers: Hypothyroidism type: acquired Qualified Code(s): E03.9 - Hypothyroidism, unspecified (4) Pneumonia Qualifiers: Pneumonia type: due to unspecified organism Laterality: right Lung location : lower lobe of lung Qualified Code(s): J18.1 - Lobar pneumonia, unspecified organism (6) CHF (congestive heart failure) Qualifiers: Heart failure type: diastolic Heart failure chronicity: chronic Qualified Code(s): I50.32 - Chronic diastolic (congestive) heart failure (7) COPD (chronic obstructive pulmonary disease) Qualifiers: COPD type: emphysema Emphysema type: panlobular Qualified Code(s): J43.1 - Panlobular emphysema (8) HTN (hypertension) Qualifiers: Hypertension type: essential hypertension Qualified Code(s): I10 - Essential (primary) hypertension (9) HLD (hyperlipidemia) Qualifiers: Hyperlipidemia type: mixed hyperlipidemia Qualified Code(s): E78.2 - Mixed hyperlipidemia (10) CAD (coronary artery disease), [place] coronary artery Qualifiers: [place] vs. transplanted heart: [place] heart Associated angina: without angina Qualified Code(s): I25.10 - Atherosclerotic heart disease of [place] coronary artery without angina pectoris (12) Chronic respiratory failure Qualifiers: Respiratory failure complication: hypoxia and hypercapnia Qualified Code(s): J96.11 - Chronic respiratory failure with hypoxia; J96.12 - Chronic respiratory failure with hypercapnia (13) Ascites Qualifiers: Ascites type: other type Qualified Code(s): R18.8 - Other ascites
[2018-05-25] MEDS ORDERED: Aminoglycoside Consult 1 EACH MC ONE (16:53)
[2018-05-25] MEDS ORDERED: Levofloxacin 500 MG/100 ML 500 MG/100 ML BAG IVPB SCH (17:00)
[2018-05-25] MEDS: Insulin DETEMIR 100 UNIT/ML X5UNITS SQ SCH (20:51)
[2018-05-26 04:57] LABS: Basophils % 0.4 %; Mean Corpuscular HGB Conc 30.6 g/dL (31.6-35.5); Red Cell Distribution Width 16.3 % (11.5-14.5)
[2018-05-26 05:00] LABS: Eosinophils # 0.1 K/mcL (0.0-0.6); Eosinophils % 4.6 %; Hematocrit 25.5 % (37.5-50.1); Hemoglobin 7.8 g/dL (12.9-16.9); Immature Granulocytes % 2.1 % (0-4); Lymphocytes # 0.8 K/mcL (0.6-4.6); Lymphocytes % 32.1 %; Mean Corpuscular Hemoglobin 29.3 pg (28.0-33.3); Mean Corpuscular Volume 95.9 fL (83.0-100.0); Mean Platelet Volume 10.2 fL (9.4-12.4); Monocytes # 0.3 K/mcL (0.0-1.3); Monocytes % 11.3 %; Neutrophils # 1.2 K/mcL (1.6-8.9); Red Blood Count 2.66 M/mcL (4.19-5.50); Segmented Neutrophils % 49.5 %
[2018-05-26 05:01] LABS: Platelet Count 62 K/mcL (140-400)
[2018-05-26 05:03] LABS: INR 1.2; Prothrombin Time 13.4 Seconds (9.4-12.1)
[2018-05-26 05:17] LABS: BUN/Creatinine Ratio 12 (6-26); Blood Urea Nitrogen 12 mg/dL (6-20); Calcium 8.8 mg/dL (8.6-10.3); Carbon Dioxide 39 mEq/L (23-29); Chloride 98 mEq/L (98-107); Glucose 212 mg/dL (70-105); Osmolality,Calculated 300 (280-300); Potassium 3.9 mEq/L (3.5-5.1); Sodium 142 mEq/L (136-145); eGFR For Non-African Americans > 60 (> 60)
[2018-05-26] MEDS: Sucralfate 1 GM TABLET PO SCH ×3 (06:02→17:18)
[2018-05-26] MEDS: Insulin LISPRO 300 UNITS/3 ML VIAL SQ SCH ×7 (08:06→20:52)
[2018-05-26] MEDS: Furosemide 40 MG TABLET PO SCH (08:08)
[2018-05-26] MEDS: Gabapentin 300 MG CAPSULE PO SCH ×2 (08:11→20:50)
[2018-05-26] MEDS: Lactulose Oral Soln 20 GM/30 ML UDC PO SCH ×2 (08:11→20:51)
[2018-05-26] MEDS: Aspirin 81 MG TAB.CHEW PO SCH (08:11)
[2018-05-26] MEDS: Ibrutinib [Imbruvica] 420 MG PO SCH (08:11)
--- NOTE | 2018-05-26 12:32 | Gastroenterology Consult Note ---
<AmishSay - Last Filed: 05/26/18 18:11> Date of Encounter: 05/26/18 Time of Encounter: 12:32 - Assessment and plan (1) Cirrhosis Current Visit: Yes Status: Chronic Assessment and plan: Patient has a known history of cirrhosis - Patient is alert and oriented 3, no signs of altered mental status at this time - Patient is being monitored for any changes and altered mental status - Laboratory analysis on arrival demonstrated the following: ammonia 55, Serum Protein 6.1, Alk. Phos. 113 - Patients platelet count is 62 - INR is 1.2, albumin 4.0 - MELD score: 12 Plan: - Continue lactulose twice a day - We recommend optimizing patient's lasix at this time. - TIPPS may be performed in the future; but is not necessary at this time. Qualifiers: Hepatic cirrhosis type: unspecified hepatic cirrhosis Ascites presence: with ascites Qualified Code(s): K74.60 - Unspecified cirrhosis of liver; R18.8 - Other ascites (2) Ascites Current Visit: Yes Status: Acute Assessment and plan: CT scan of the abdomen and pelvis demonstrated cirrhosis, portal hypertension, splenomegaly, and moderate ascites - Patient is currently on Lasix 40 PO daily - Interventional radiology performed paracentesis; 4.6 L of fluid removed - We recommend increasing patient's lasix dose Qualifiers: Ascites type: other type Qualified Code(s): R18.8 - Other ascites (3) Pleural effusion associated with hepatic disorder Current Visit: Yes Status: Chronic Assessment and plan: Known history of Cirrhosis - Transudative on last admission, pleural culture negative - Currently asymptomatic - Time Spent With Patient Total time spent is greater than 50% in coordination of care (as documented) at patient's floor/unit and/or counseling patient: GI History of Present Illness - Data of Consult Consult date: 05/26/18 Requesting Physician: Orlando Ruiz DO - Consult Narrative Reason for consult: Cirrhosis, possible Tipps placement History of present illness: Mr. Fang is a 58-year-old male with PMH of decompensated liver cirrhosis, pancytopenia, diabetes, CAD, HLD, HTN, COPD, hypothyroidism, obesity, and chronic hypoxic and hypercapnic respiratory failure on home O2 and BiPAP. Patient was recently discharged on 05/06/18 after being managed for sepsis secondary to pneumonia with pleural effusion. Pleural effusion was drained, patient had negative cultures. Approximately 3 days ago, patient developed worsening abdominal distention. [place] like it was a gas bubble, felt very bloated. Denied having any hematemesis, melena, dizziness, diaphoresis. CT scan of the abdomen and pelvis demonstrated cirrhosis, portal hypertension, splenomegaly, moderate ascites, diverticulosis without diverticulitis. Hemoglobin today is 7.8. Hemoglobin has been trending down 9.4, 8.5, 7.8. Patient seen and examined at bedside; reports feeling well today. He has no complaints at this time. Past Med Surg Social Fam HX - Past Medical History Medical history: cancer, cirrhosis, CHF, COPD, diabetes, GERD, hyperlipidemia, hypertension, kidney stones, myocardial infarction Additional medical history: morbid obesity with BMI of 45-49 adult. history of colon polyps. stomach polyp removed. esophageal varicies banded. chronic lymphatic leukemia Psychiatric history: depression - Past Surgical History Surgical History: LE stent(s) Additional surgical history: 3 cardiac stents. left knee. Hernia repair. Kidney stones. esophageal varicies. stomach polyp removed and clamp placed - Social History Smoking Status: Former smoker Smokeless Tobacco Status: No Alcohol use: none Drug use: none - Family History Mother Family Member Ethnicity: Non- Living Status: Hx Family Respiratory Disorders: Yes (COPD) Father Family Member Ethnicity: Non- Living Status: Hx Family Cancer: Yes (Small cell lung & Throat) Brother Family Member Ethnicity: Non- Living Status: Sister Family Member Ethnicity: Non- Living Status: Hx Family Respiratory Disorders: Yes (COPD) - Constitutional Vitals: Temp Pulse Resp BP Pulse Ox 98.6 F 73 18 123/68 100 05/26/18 11:22 05/26/18 11:22 05/26/18 11:22 05/26/18 11:22 05/26/18 11:22 - Other Additional findings: General: No acute distress Head: Atraumatic, normocephalic Eyes: Non-icteric Neck: Supple, Trachea midline. No JVD Heart: RRR, S1, S2, no murmurs, rubs, or gallops Lungs: CTAB, no wheezes, rales, rhochi Abdomen: Distended; hepatomegaly. Soft, nontender Skin: Dry, intact Extremities: +1 pitting edema b/l LE Results - Labs CBC & Chem 7: 05/26/18 17:11 05/26/18 03:54 Labs: Last Result Calcium 8.8 mg/dL (8.6-10.3) 05/26/18 03:54 Entire Visit Hgb 7.8 g/dL (12.9-16.9) L 05/26/18 03:54 Hct 25.5 % (37.5-50.1) L 05/26/18 03:54 PT 13.4 Seconds (9.4-12.1) H 05/26/18 03:54 Total Bilirubin 2.3 mg/dL (0.3-1.0) H 05/24/18 14:49 AST 16 Units/L (13-39) 05/24/18 14:49 ALT 13 Units/L (7-52) 05/24/18 14:49 Ammonia 55 mcmol/L (16-53) H 05/24/18 14:49 - ABG ABG results: PT/INR, D-dimer PT 13.4 Seconds (9.4-12.1) H 05/26/18 03:54 - Impressions Impressions Paracentesis Ultrasound 05/25/18 17:49 IMPRESSION: Successful ultrasound guided paracentesis. D/ / Juan Carlos Salinas MD / Juan Carlos Salinas MD Interpreting Provider: Juan Carlos Salinas MD Consult Discharge Plan - Plan Referrals: Derick Ellis DO [Primary Care Provider] - <SonamNi - Last Filed: 05/26/18 18:36> Date of Encounter: 05/26/18 Time of Encounter: 17:40 - Time Spent With Patient Total time spent is greater than 50% in coordination of care (as documented) at patient's floor/unit and/or counseling patient: GI History of Present Illness - Data of Consult Requesting Physician: Orlando Ruiz DO - Consult Narrative History of present illness: Mr. Fang is a 58 year old male - Constitutional Vitals: Temp Pulse Resp BP Pulse Ox 98.2 F 73 19 122/71 94 05/26/18 16:39 05/26/18 16:39 05/26/18 16:39 05/26/18 16:39 05/26/18 16:39 Results - Labs CBC & Chem 7: 05/26/18 17:11 05/26/18 03:54 Labs: Last Result Calcium 8.8 mg/dL (8.6-10.3) 05/26/18 03:54 Entire Visit Hgb 9.0 g/dL (12.9-16.9) L 05/26/18 17:11 Hct 28.3 % (37.5-50.1) L 05/26/18 17:11 PT 13.4 Seconds (9.4-12.1) H 05/26/18 03:54 Total Bilirubin 2.3 mg/dL (0.3-1.0) H 05/24/18 14:49 AST 16 Units/L (13-39) 05/24/18 14:49 ALT 13 Units/L (7-52) 05/24/18 14:49 Ammonia 55 mcmol/L (16-53) H 05/24/18 14:49 - ABG ABG results: PT/INR, D-dimer PT 13.4 Seconds (9.4-12.1) H 05/26/18 03:54 - Impressions Impressions Paracentesis Ultrasound 05/25/18 17:49 IMPRESSION: Successful ultrasound guided paracentesis. D/ / Juan Carlos Salinas MD / Juan Carlos Salinas MD Interpreting Provider: Juan Carlos Salinas MD - Attending Attestation I examined this patient and my medical decision-making was reviewed with the Resident Physician. I agree with the documented findings, disposition and treatment plan as described except to the extent set forth below. Since seen at the bedside. Patient is known to me on examination abdomen is moderately distended. Assessment:patient with the cirrhosis with ascites and left-sided pleural effusion. Currently patient is on Lasix 40 mg a day along with Aldactone 100 mg a day only. His meld score is 12. Recommendation: Increase Lasix to 40 rectum twice a day and Aldactone 100 mg twice a day . we will watch his kidney function And will gradually increase the doses as an outpatient as tolerated. if patient cannot tolerate diuretics in the future ( such as worsening renal function )and still has ascites/ pleural effusion then he will be candidate for a TIPS or until he reached the maximum dose of diuretics which are 160 of Lasix and 400 of Aldactone.
--- NOTE | 2018-05-26 15:57 | Internal Med Progress Note ---
<Orlando Ruiz - Last Filed: 05/26/18 19:09> Hospitalist Progress Note - Encounter Date of Encounter: 05/26/18 - Exam Vitals: Temp Pulse Resp BP Pulse Ox 98.2 F 73 19 122/71 94 05/26/18 16:39 05/26/18 16:39 05/26/18 16:39 05/26/18 16:39 05/26/18 16:39 - Assessment and Plan (1) CLL (chronic lymphocytic leukemia) Current Visit: Yes Status: Chronic (2) Cirrhosis Current Visit: Yes Status: Chronic (3) Hypothyroidism Current Visit: Yes Status: Chronic (4) Pneumonia Current Visit: Yes Status: Resolved (5) Pleural effusion Current Visit: Yes Status: Acute (6) CHF (congestive heart failure) Current Visit: Yes Status: Chronic (7) COPD (chronic obstructive pulmonary disease) Current Visit: Yes Status: Chronic (8) HTN (hypertension) Current Visit: Yes Status: Chronic (9) HLD (hyperlipidemia) Current Visit: Yes Status: Chronic (10) CAD (coronary artery disease), [place] coronary artery Current Visit: Yes Status: Chronic (11) Pancytopenia due to chemotherapy Current Visit: Yes Status: Chronic (12) Chronic respiratory failure Current Visit: Yes Status: Chronic (13) Ascites Current Visit: Yes Status: Acute (14) Portal hypertension Current Visit: Yes Status: Chronic - Time Spent with Patient Total time spent is greater than 50% in coordination of care (as documented) at patient's floor/unit and/or counseling patient: Internal Medicine: Result - Labs CBC & Chem 7: 05/26/18 17:11 05/26/18 03:54 Labs: Short CBC 05/26/18 05/26/18 Range/Units 03:54 17:11 WBC 2.4 L (4.3-11.1) K/mcL Hgb 7.8 L 9.0 L (12.9-16.9) g/dL Hct 25.5 L 28.3 L (37.5-50.1) % Plt Count 62 L (140-400) K/mcL Neutrophils # 1.2 L (1.6-8.9) K/mcL BMP 05/26/18 03:54 Sodium 142 Potassium 3.9 Chloride 98 Carbon Dioxide 39 H BUN 12 Creatinine 0.97 Glucose 212 H Calcium 8.8 - ABG Interpretation ABG results: PT/INR, D-dimer PT 13.4 Seconds (9.4-12.1) H 05/26/18 03:54 - Impressions Impressions Paracentesis Ultrasound 05/25/18 17:49 IMPRESSION: Successful ultrasound guided paracentesis. D/ / Juan Calros Salinas MD / Juan Carlos Salinas MD Interpreting Provider: Juan Carlos Salinas MD Consult Discharge Plan - Plan Referrals: Derick Ellis DO [Primary Care Provider] - - Attending Attestation The history, physical exam, and medical decision making was performed by the medical student either while I was physically present and actively involved or I personally re-performed the exam and medical decision making. I have verified the accuracy of the medical student's documentation with regards to the history, physical exam findings, and medical decision making on 05/26/18. Mr Fang is currently in observation for pleural effusion and ascites. He remains moderate to high risk. Mr Fang is doing OK. He is breathing OK and has no pain. We spent about 30min discussing TIPS. He is to have in the future and to follow with GI now. Exam alert Comfortable Mucus membranes dry No wheeze No tachycardia Abd distended Edema present I/P 1. Ascites 2. Pleural effusion Further diagnoses and plan as above. Probable d/c tomorrow. <Contreras Ponce M - Last Filed: 05/26/18 21:07> Hospitalist Progress Note - Encounter Date of Encounter: 05/26/18 Time of Encounter: 13:00 - Subjective Interval History: Patient seen and examined at bedside. Patient comfortable without any new or worsening complaints at this time. States his abdomen is much less tender and feels less bloated following the paracenteses. Admits to some exertional dyspnea , thought presently comfortable on 4L. Patient is not experiencing any chills and is afebrile on exam without cough, wheeze or SOB at rest. GI spoke with patient; they recommend increasing dose of lasix and performing the TIPPS at some point in the near future, though not during this hospital admission. Patient agreeable to follow up with Dr. Masters in his outpatient clinic. - Exam Vitals: Temp Pulse Resp BP Pulse Ox 98.6 F 73 18 123/68 100 05/26/18 11:22 05/26/18 11:22 05/26/18 11:22 05/26/18 11:22 05/26/18 11:22 Exam: General: alert, oriented, cooperative Head: atraumatic, normocephalic Eyes: non-icteric Neck: supple, full ROM, Trachea midline, no JVD appreciated, mild supraclavicular lymphadenopathy Heart: RRR, normal s1 s2, no murmurs gallops rubs Resp: diminished BS bilaterally at the bases, no wheezes ABD: moderately distended, mildly tender to palpation, no guarding rigidity or rebound, -fluid wave Skin: no rashes, lesions, or open sores; Mild Venous stasis Dermatitis of right leg Extremities: +1 pretibial pitting edema, +5/5 strength all extremities, sensation intact - Assessment and Plan (1) Cirrhosis Current Visit: Yes Status: Chronic Assessment and Plan: Patient has a known history of cirrhosis - Patient is alert and oriented 3, no signs of altered mental status at this time - Patient is being monitored for any changes and altered mental status - Laboratory analysis on arrival demonstrated the following: ammonia 55, Serum Protein 6.1, Alk. Phos. 113 - Patients platelet count is 62 - INR is 1.2, albumin 4.0 - MELD score: 12 Plan: - Continue lactulose twice a day - We recommend optimizing patient's lasix at this time. - TIPPS may be performed in the future; but is not necessary at this time. (2) Ascites Current Visit: Yes Status: Acute Assessment and Plan: CT scan of the abdomen and pelvis demonstrated cirrhosis, portal hypertension, splenomegaly, and moderate ascites - Patient is currently on Lasix 40 PO daily - Interventional radiology performed paracentesis; 4.6 L of fluid removed - We recommend increasing patient's lasix dose (3) Pleural effusion associated with hepatic disorder Current Visit: Yes Status: Chronic Assessment and Plan: Known history of Cirrhosis - Transudative on last admission, pleural culture negative - Currently asymptomatic Code(s): K76.9 - Liver disease, unspecified; J91.8 - Pleural effusion in other conditions classified elsewhere (4) Pneumonia Current Visit: Yes Status: Resolved Assessment and Plan: - Likely resolved, patient is not septic at this time; vitals stable - Denies fever/chills/cough; SOB at baseline - ABX held, Monitor vitals (5) CLL (chronic lymphocytic leukemia) Current Visit: Yes Status: Chronic Assessment and Plan: Known history of CLL - CBC/labs unchanged from baseline - Plt 59 on admission, no signs of bleeding - Rpt CBC to trend Platelets (6) CAD (coronary artery disease), [place] coronary artery Current Visit: Yes Status: Chronic Assessment and Plan: Known history of CAD - No s/s of ACS at this time - Patient has multiple risk factors - Continue home meds (7) Chronic respiratory failure Current Visit: Yes Status: Chronic Assessment and Plan: Known history of chronic respiratory failure - patient is 4L at home; required just 2L last month - CO2 improved during this admission - Continue CPAP at night - Continue oxygen; attempt to wean to 2L as tolerated (8) CHF (congestive heart failure) Current Visit: Yes Status: Chronic Assessment and Plan: Known history of CHF - Last echo: EF 50% - Denies PND, Orthopnea; no crackles on exam - Mildly edematous lower extremities; likely 2/2 low serum protein - Continue home lasix, increase dose as tolerated per GI (9) Hypercapnia Current Visit: Yes Status: Chronic Assessment and Plan: Known history of Hypercapnia - Patient has chronically elevated CO2 - Likely 2/2 respiratory compensation in setting of metabolic alkalosis Code(s): R06.89 - Other abnormalities of breathing (10) Pancytopenia due to chemotherapy Current Visit: Yes Status: Chronic Assessment and Plan: Known history of CLL - CBC is unchanged from baseline - Plt 59; no evidence of bleeding - continue to monitor Code(s): D61.810 - Antineoplastic chemotherapy induced pancytopenia (11) Portal hypertension Current Visit: Yes Status: Chronic Assessment and Plan: Known history of Portal Hypertension - 2/2 cirrhosis, stable since last admission - no history of hematemesis or melana Code(s): K76.6 - Portal hypertension (12) HTN (hypertension) Current Visit: Yes Status: Chronic Assessment and Plan: Known history of Hypertension - continue home meds - last BP 124/65; stable - continue to monitor (13) HLD (hyperlipidemia) Current Visit: Yes Status: Chronic Assessment and Plan: Known history of Hyperlipidemia - continue home meds - Time Spent with Patient Total time spent is greater than 50% in coordination of care (as documented) at patient's floor/unit and/or counseling patient: Internal Medicine: Result - Labs CBC & Chem 7: 05/26/18 17:11 05/26/18 03:54 Labs: Short CBC 05/26/18 Range/Units 03:54 WBC 2.4 L (4.3-11.1) K/mcL Hgb 7.8 L (12.9-16.9) g/dL Hct 25.5 L (37.5-50.1) % Plt Count 62 L (140-400) K/mcL Neutrophils # 1.2 L (1.6-8.9) K/mcL BMP 05/26/18 03:54 Sodium 142 Potassium 3.9 Chloride 98 Carbon Dioxide 39 H BUN 12 Creatinine 0.97 Glucose 212 H Calcium 8.8 - ABG Interpretation ABG results: PT/INR, D-dimer PT 13.4 Seconds (9.4-12.1) H 05/26/18 03:54 - Impressions Impressions Paracentesis Ultrasound 05/25/18 17:49 IMPRESSION: Successful ultrasound guided paracentesis. D/ / Juan Carlos Salinas MD / Juan Carlos Salinas MD Interpreting Provider: Juan Carlos Salinas MD - VTE Documentation of Mechanical Device: Intermittent pneumatic compression device <Orlando Ruiz - Last Filed: 05/26/18 19:09> (2) Cirrhosis Qualifiers: Hepatic cirrhosis type: unspecified hepatic cirrhosis Ascites presence: with ascites Qualified Code(s): K74.60 - Unspecified cirrhosis of liver; R18.8 - Other ascites (3) Hypothyroidism Qualifiers: Hypothyroidism type: acquired Qualified Code(s): E03.9 - Hypothyroidism, unspecified (4) Pneumonia Qualifiers: Pneumonia type: due to unspecified organism Laterality: right Lung location : lower lobe of lung Qualified Code(s): J18.1 - Lobar pneumonia, unspecified organism (6) CHF (congestive heart failure) Qualifiers: Heart failure type: diastolic Heart failure chronicity: chronic Qualified Code(s): I50.32 - Chronic diastolic (congestive) heart failure (7) COPD (chronic obstructive pulmonary disease) Qualifiers: COPD type: emphysema Emphysema type: panlobular Qualified Code(s): J43.1 - Panlobular emphysema (8) HTN (hypertension) Qualifiers: Hypertension type: essential hypertension Qualified Code(s): I10 - Essential (primary) hypertension (9) HLD (hyperlipidemia) Qualifiers: Hyperlipidemia type: mixed hyperlipidemia Qualified Code(s): E78.2 - Mixed hyperlipidemia (10) CAD (coronary artery disease), [place] coronary artery Qualifiers: [place] vs. transplanted heart: [place] heart Associated angina: without angina Qualified Code(s): I25.10 - Atherosclerotic heart disease of [place] coronary artery without angina pectoris (12) Chronic respiratory failure Qualifiers: Respiratory failure complication: hypoxia and hypercapnia Qualified Code(s): J96.11 - Chronic respiratory failure with hypoxia; J96.12 - Chronic respiratory failure with hypercapnia (13) Ascites Qualifiers: Ascites type: other type Qualified Code(s): R18.8 - Other ascites <Contreras Ponce M - Last Filed: 05/26/18 21:07> (1) Cirrhosis Qualifiers: Hepatic cirrhosis type: unspecified hepatic cirrhosis Ascites presence: with ascites Qualified Code(s): K74.60 - Unspecified cirrhosis of liver; R18.8 - Other ascites (2) Ascites Qualifiers: Ascites type: other type Qualified Code(s): R18.8 - Other ascites (4) Pneumonia Qualifiers: Pneumonia type: due to unspecified organism Laterality: right Lung location : lower lobe of lung Qualified Code(s): J18.1 - Lobar pneumonia, unspecified organism (6) CAD (coronary artery disease), [place] coronary artery Qualifiers: [place] vs. transplanted heart: [place] heart Associated angina: without angina Qualified Code(s): I25.10 - Atherosclerotic heart disease of [place] coronary artery without angina pectoris (7) Chronic respiratory failure Qualifiers: Respiratory failure complication: hypoxia and hypercapnia Qualified Code(s): J96.11 - Chronic respiratory failure with hypoxia; J96.12 - Chronic respiratory failure with hypercapnia (8) CHF (congestive heart failure) Qualifiers: Heart failure type: diastolic Heart failure chronicity: chronic Qualified Code(s): I50.32 - Chronic diastolic (congestive) heart failure (12) HTN (hypertension) Qualifiers: Hypertension type: essential hypertension Qualified Code(s): I10 - Essential (primary) hypertension (13) HLD (hyperlipidemia) Qualifiers: Hyperlipidemia type: mixed hyperlipidemia Qualified Code(s): E78.2 - Mixed hyperlipidemia
[2018-05-26 17:23] LABS: Hematocrit 28.3 % (37.5-50.1)
[2018-05-26] MEDS: ALPRAZolam 1 MG TABLET PO PRN (20:55)
[2018-05-26] MEDS: Insulin DETEMIR 100 UNIT/ML X5UNITS SQ SCH (20:55)
[2018-05-27 06:34] LABS: Immature Granulocytes % 1.3 % (0-4); Mean Corpuscular Hemoglobin 30.1 pg (28.0-33.3)
[2018-05-27 06:35] LABS: Basophils % 0.4 %; Eosinophils # 0.1 K/mcL (0.0-0.6); Eosinophils % 4.8 %; Hematocrit 26.1 % (37.5-50.1); Hemoglobin 8.1 g/dL (12.9-16.9); Immature Platelets 3.2 % (1.1-6.1); Lymphocytes # 0.8 K/mcL (0.6-4.6); Lymphocytes % 36.1 %; Mean Platelet Volume 10.2 fL (9.4-12.4); Monocytes # 0.2 K/mcL (0.0-1.3); Monocytes % 8.4 %; Neutrophils # 1.1 K/mcL (1.6-8.9); Red Blood Count 2.69 M/mcL (4.19-5.50); Red Cell Distribution Width 16.2 % (11.5-14.5)
[2018-05-27 06:37] LABS: Platelet Count 53 K/mcL (140-400)
[2018-05-27 06:38] LABS: INR 1.1; Prothrombin Time 12.9 Seconds (9.4-12.1)
[2018-05-27 06:55] LABS: BUN/Creatinine Ratio 12 (6-26); Blood Urea Nitrogen 11 mg/dL (6-20); Calcium 8.5 mg/dL (8.6-10.3); Carbon Dioxide 40 mEq/L (23-29); Chloride 99 mEq/L (98-107); Glucose 169 mg/dL (70-105); Osmolality,Calculated 295 (280-300); Potassium 3.9 mEq/L (3.5-5.1); Sodium 141 mEq/L (136-145); eGFR For Non-African Americans > 60 (> 60)
[2018-05-27 08:00] VITALS: BP 124/74
[2018-05-27] MEDS ORDERED: Furosemide 40 MG TABLET PO SCH (08:00)
[2018-05-27] MEDS: Sucralfate 1 GM TABLET PO SCH ×2 (08:49→12:10)
[2018-05-27] MEDS: Gabapentin 300 MG CAPSULE PO SCH (08:49)
[2018-05-27] MEDS: Lactulose Oral Soln 20 GM/30 ML UDC PO SCH (08:49)
[2018-05-27] MEDS: Insulin LISPRO 300 UNITS/3 ML VIAL SQ SCH ×4 (08:56→12:11)
[2018-05-27] MEDS: Aspirin 81 MG TAB.CHEW PO SCH (10:00)
[2018-05-27] MEDS: Ibrutinib [Imbruvica] 420 MG PO SCH (10:00)
--- NOTE | 2018-05-27 12:07 | Discharge Summary ---
<Ghulam Randolph - Last Filed: 05/27/18 19:26> Orders not resulted at time of discharge: Pending orders 05/25/18 04:00 Amylase,Peritoneal Fluid [BF] Timed Cell Cnt w Dif, Peritoneal Fl [BF] Timed Glucose,Peritoneal Fluid [BF] Timed LDH,Peritoneal Fluid [BF] Timed Total Protein,Peritoneal Fluid [BF] Timed Date of Encounter: 05/27/18 Time of Encounter: 10:30 - Discharge Diagnosis (1) Ascites Priority: Primary Status: Acute Qualifiers: Ascites type: other type Qualified Code(s): R18.8 - Other ascites (2) Pleural effusion Priority: Secondary Status: Acute (3) Cirrhosis Priority: Secondary Status: Chronic Qualifiers: Hepatic cirrhosis type: unspecified hepatic cirrhosis Ascites presence: with ascites Qualified Code(s): K74.60 - Unspecified cirrhosis of liver; R18.8 - Other ascites (4) HLD (hyperlipidemia) Priority: Secondary Status: Chronic Qualifiers: Hyperlipidemia type: mixed hyperlipidemia Qualified Code(s): E78.2 - Mixed hyperlipidemia (5) HTN (hypertension) Priority: Secondary Status: Chronic Qualifiers: Hypertension type: essential hypertension Qualified Code(s): I10 - Essential (primary) hypertension (6) Portal hypertension Priority: Secondary Status: Chronic Hospital course: Mr. Fang is a 58-year-old male with PMH of decompensated liver cirrhosis, pancytopenia, diabetes, CAD, HLD, HTN, COPD, hypothyroidism, obesity, and chronic hypoxic and hypercapnic respiratory failure on home O2 and BiPAP. Patient was recently discharged on 05/06/18 after being managed for sepsis secondary to pneumonia with pleural effusion. Pleural effusion was drained, patient had negative cultures. This admission patient developed worsening abdominal distention, no hematemesis or melena. CT scan of the abdomen and pelvis demonstrated cirrhosis, portal hypertension, splenomegaly, moderate ascites, diverticulosis without diverticulitis. IR performed paracentesis with 4.6L removed. Plan is to optimize patient's lasix to a regimen of 40mg PO BID. GI plans for future TIPPS procedure, follow-up has been scheduled with Anila SHELDON. Discharge discussed with: patient, family - Time Spent with Patient Total time spent providing and/or coordinating discharge services: Greater than 30 minutes - Discharge Medications Prescriptions: Furosemide [Lasix] 40 mg PO BIDDIURETIC #60 tablet Home Medications: ALPRAZolam [Xanax 1 MG Tablet] 1 mg PO BID PRN 05/09/15 [History] Atorvastatin Calcium [Lipitor] 20 mg PO HS 05/09/15 [History] Metformin HCl [Glucophage] 1,000 mg PO BID 05/09/15 [History] Oxygen 3 l NS HS 03/26/16 [History] Spironolactone [Aldactone] 100 mg PO DAILY 03/26/16 [History] OxyCODONE/APAP 10/325 [Percocet 10/325 MG] 1 tab PO Q6H PRN 07/30/16 [History] Insulin Glargine,Hum.rec.anlog [Lantus Solostar] 50 unit SQ BID 12/24/16 [ History] Prochlorperazine Maleate [Compazine] 1 tab PO Q6HR PRN #30 tablet 05/07/17 [Rx] Gabapentin [Neurontin] 300 mg PO BID 07/15/17 [History] Levothyroxine [Synthroid] 88 mcg PO 0630 #30 tablet 11/23/17 [Rx] Sucralfate [Carafate] 1 gm PO TID 03/09/18 [History] Aspirin 81 mg PO AD 03/26/18 [History] Lactulose [Kristalose] 20 gm PO TID 03/26/18 [History] Pantoprazole Sodium [Protonix] 40 mg PO DAILY 03/26/18 [History] Metoprolol [Lopressor] 75 mg PO BID 05/01/18 [History] Nitroglycerin [Nitromist] 4.1 gm TL AD PRN 05/01/18 [History] Ibrutinib [Imbruvica] 420 mg PO DAILY #30 tablet 05/21/18 [Rx] Insulin Regular, Human [Novolin R] 0 unit SQ TIDWM PRN 05/24/18 [History] Furosemide [Lasix] 40 mg PO BIDDIURETIC #60 tablet 05/27/18 [Rx] Allergies/Adverse Reactions: 3 Allergy/AdvReac Type Severity Reaction Status Date / Time naproxen Allergy Mild Hives Verified 05/10/18 09:05 rituximab Allergy Mild Hives Verified 05/10/18 09:05 JUAN RAMON Inhibitors AdvReac Mild NECK PAIN Verified 05/10/18 09:05 cefdinir AdvReac Mild Dizziness Verified 05/10/18 09:05 hydrocodone AdvReac Mild Vomiting Verified 05/10/18 09:05 levofloxacin AdvReac Mild Dizziness Verified 05/10/18 09:05 ramipril [From Altace] AdvReac Mild NECK PAIN Verified 05/10/18 09:05 tramadol AdvReac Mild Nausea Verified 05/10/18 09:05 doxycycline AdvReac Vomiting Verified 05/10/18 09:05 Date of admission: 05/24/18 16:52 Primary care physician: Derick Ellis DO Consults: 05/24/18 17:56 Consult to Thoracic Surgery [CONS] Routine Consulting Provider: Cardiothoracic Surgery [place] Reason for Consult: Recurrent pleural effusion, pls evaluate for possible pleurodesis Call Completed: Yes 05/25/18 13:35 Consult to Gastroenterology [CONS] Routine Consulting Provider: Gastroenterology [facility] Reason for Consult: Ascites Time Notified: 13:35 Call Completed: Yes 05/26/18 09:31 Consult to Interventional Radiology [CONS] Routine Consulting Provider: Radiology Interventional Cols Reason for Consult: PAtient has a Hx of Portal HTN soencadry to Cirrhosis, needs a TIPS procedure Call Completed: Yes - Constitutional Vitals: Temp Pulse Resp BP Pulse Ox 98.6 F 80 18 124/74 95 05/27/18 07:55 05/27/18 07:55 05/27/18 07:55 05/27/18 07:55 05/27/18 08:34 General appearance: Present: A&O X 3, pleasant, obese Exam: General: alert, oriented, cooperative, answers questions appropriately Head: atraumatic, normocephalic Eyes: non-icteric Neck: supple, full ROM, Trachea midline, no JVD appreciated, mild supraclavicular lymphadenopathy Heart: RRR, normal s1 s2, no murmurs gallops rubs Resp: diminished BS bilaterally at the bases, no wheezes ABD: moderately distended, mildly tender to palpation, no guarding rigidity or rebound, -fluid wave Skin: no rashes, lesions, or open sores; Mild Venous stasis Dermatitis of right leg Extremities: +1 pretibial pitting edema, +5/5 strength all extremities, sensation intact - Patient Status Disposition: Home, Self-Care Condition: Good Functional capacity at discharge: independent ambulation Overall status at discharge: patient is progressing back to baseline - Discharge Instructions Instructions: Chest Pain (DC), Acute Respiratory Distress Syndrome (DC), Pleural Effusion (DC), Abdominal Paracentesis (DC), Dyspnea (GEN), Pneumonia (DC ) Follow Up With: Derick Ellis DO [Primary Care Provider] - 06/08/18 12:00 pm (Please follow up as schedule...) Ni Masters MD [Partnered Physician] - (Sivan from the office will call patient for an appt.) Forms: ED Satisfaction Letter, Work/School Release - Diet and Activity Activity: increase activity as tolerated Diet: advance to your usual diet, low fat, low cholesterol - VTE Documentation of Mechanical Device: Intermittent pneumatic compression device <Orlando Ruiz - Last Filed: 05/27/18 19:57> Orders not resulted at time of discharge: Pending orders 05/25/18 04:00 Amylase,Peritoneal Fluid [BF] Timed Cell Cnt w Dif, Peritoneal Fl [BF] Timed Glucose,Peritoneal Fluid [BF] Timed LDH,Peritoneal Fluid [BF] Timed Total Protein,Peritoneal Fluid [BF] Timed Date of Encounter: 05/27/18 - Discharge Diagnosis (1) CLL (chronic lymphocytic leukemia) Priority: Secondary Status: Chronic (2) Cirrhosis Status: Chronic Qualifiers: Hepatic cirrhosis type: unspecified hepatic cirrhosis Ascites presence: with ascites Qualified Code(s): K74.60 - Unspecified cirrhosis of liver; R18.8 - Other ascites (3) Hypothyroidism Priority: Secondary Status: Chronic Qualifiers: Hypothyroidism type: acquired Qualified Code(s): E03.9 - Hypothyroidism, unspecified (4) Pleural effusion Priority: Primary Status: Acute (5) CHF (congestive heart failure) Priority: Secondary Status: Chronic Qualifiers: Heart failure type: diastolic Heart failure chronicity: chronic Qualified Code(s): I50.32 - Chronic diastolic (congestive) heart failure (6) COPD (chronic obstructive pulmonary disease) Priority: Secondary Status: Chronic Qualifiers: COPD type: emphysema Emphysema type: panlobular Qualified Code(s): J43.1 - Panlobular emphysema (7) HTN (hypertension) Status: Chronic Qualifiers: Hypertension type: essential hypertension Qualified Code(s): I10 - Essential (primary) hypertension (8) HLD (hyperlipidemia) Status: Chronic Qualifiers: Hyperlipidemia type: mixed hyperlipidemia Qualified Code(s): E78.2 - Mixed hyperlipidemia (9) CAD (coronary artery disease), [place] coronary artery Priority: Secondary Status: Chronic Qualifiers: [place] vs. transplanted heart: [place] heart Associated angina: without angina Qualified Code(s): I25.10 - Atherosclerotic heart disease of [place] coronary artery without angina pectoris (10) Pancytopenia due to chemotherapy Priority: Secondary Status: Chronic (11) Chronic respiratory failure Priority: Secondary Status: Chronic Qualifiers: Respiratory failure complication: hypoxia and hypercapnia Qualified Code(s) : J96.11 - Chronic respiratory failure with hypoxia; J96.12 - Chronic respiratory failure with hypercapnia (12) Ascites Priority: Secondary Status: Chronic Qualifiers: Ascites type: other type Qualified Code(s): R18.8 - Other ascites (13) Portal hypertension Status: Chronic Hospital course: Mr. Fang is a 58 year old male - Time Spent with Patient Total time spent providing and/or coordinating discharge services: Date of admission: 05/24/18 16:52 Primary care physician: Derick Ellis DO Consults: 05/24/18 17:56 Consult to Thoracic Surgery [CONS] Routine Consulting Provider: Cardiothoracic Surgery [place] Reason for Consult: Recurrent pleural effusion, pls evaluate for possible pleurodesis Call Completed: Yes 05/25/18 13:35 Consult to Gastroenterology [CONS] Routine Consulting Provider: Gastroenterology [place] Reason for Consult: Ascites Time Notified: 13:35 Call Completed: Yes 05/26/18 09:31 Consult to Interventional Radiology [CONS] Routine Consulting Provider: Radiology Interventional [facility]s Reason for Consult: PAtient has a Hx of Portal HTN soencadry to Cirrhosis, needs a TIPS procedure Call Completed: Yes - Constitutional Vitals: Temp Pulse Resp BP Pulse Ox 98.6 F 80 18 124/74 95 05/27/18 07:55 05/27/18 07:55 05/27/18 07:55 05/27/18 07:55 05/27/18 08:34 - Attending Attestation The history, physical exam, and medical decision making was performed by the medical student either while I was physically present and actively involved or I personally re-performed the exam and medical decision making. I have verified the accuracy of the medical student's documentation with regards to the history, physical exam findings, and medical decision making on 05/27/18. Mr Fang has been admitted for pleural effusion and ascites due to cirrhosis. He has been diuresed. He has been evaluated by GI and is to follow up outpatient. At this time he is afebrile and ready for discharge home. Exam alert Comfortable Mucus membranes dry Heart distant No wheeze Plan D/C home today.
== END 2018-05-27 13:17 | disposition home or self-care (01) ==
LOC: EMEROOARM 13:36 → 2ANU 13:36 → SUATTDRO 16:52 → 2ANU 17:49
PROVIDERS: ADMIT Internal Medicine; ATTEND Internal Medicine

== ENCOUNTER 2018-06-23 08:00 | Inpatient (IN) ==
[2018-06-23] MEDS ORDERED: Lactulose Oral Soln 20 GM/30 ML UDC PO ONE (08:12)
--- NOTE | 2018-06-23 08:17 | Emergency Department Note ---
Disposition Clinical Impression: Hepatic encephalopathy, Thrombocytopenia, Pleural effusion, Hypercarbia Ascites Qualifiers: Ascites type: other type Qualified Code(s): R18.8 - Other ascites Anemia Qualifiers: Anemia type: unspecified type Qualified Code(s): D64.9 - Anemia, unspecified Altered mental status Qualifiers: Altered mental status type: unspecified Qualified Code(s): R41.82 - Altered mental status, unspecified Respiratory failure with hypercapnia Qualifiers: Chronicity: unspecified Qualified Code(s): J96.92 - Respiratory failure, unspecified with hypercapnia Disposition: Admitted As Inpatient Condition: Serious Referrals: Derick Ellis DO [Primary Care Provider] - Forms: ED Satisfaction Letter Time of Disposition: : Altered Mental Status HPI - General Chief Complaint: ED Altered Mental Status Stated Complaint: AMS, Dizziness, CA Pt Time Seen by Provider: 06/23/18 08:06 Source: patient, family Mode of arrival: wheelchair Limitations: altered mental status Nursing Notes Reviewed: Yes Vital Signs Reviewed: Yes - History of Present Illness HPI Narrative: Patient with a history of hepatic cirrhosis presents to the emergency department with increased somnolence starting yesterday. Increased confusion and generalized weakness starting today. The spouse provides the history that the patient also has increased abdominal girth, increased peripheral edema. No reported fevers MD complaint: altered mental status Onset (ago): day(s) Timing confirmed by: spouse Pain Severity: severe Consistency of Symptoms: getting worse, constant Context: liver disease - Related Data Home Medications Medication Instructions Recorded Confirmed ALPRAZolam [Xanax 1 MG Tablet] 1 mg PO BID PRN 05/09/15 06/23/18 Atorvastatin Calcium [Lipitor] 20 mg PO 05/09/15 06/23/18 Metformin HCl [Glucophage] 1,000 mg PO BID 05/09/15 06/23/18 Oxygen 3 l NS 03/26/16 06/23/18 Spironolactone [Aldactone] 100 mg PO DAILY 03/26/16 06/23/18 OxyCODONE/APAP 10/325 [Percocet 1 tab PO Q6H PRN 07/30/16 06/23/18 10/325 MG] Insulin Glargine,Hum.rec.anlog 50 unit SQ BID 12/24/16 06/23/18 [Lantus Solostar] Gabapentin [Neurontin] 300 mg PO BID 07/15/17 06/23/18 Sucralfate [Carafate] 1 gm PO TID 03/09/18 06/23/18 Aspirin 81 mg PO AD 03/26/18 06/23/18 Lactulose [Kristalose] 20 gm PO TID 03/26/18 06/23/18 Pantoprazole Sodium [Protonix] 40 mg PO DAILY 03/26/18 06/23/18 Metoprolol [Lopressor] 75 mg PO BID 05/01/18 06/23/18 Nitroglycerin [Nitromist] 1 - 2 spr SL Q5M PRN 05/01/18 06/23/18 Insulin Regular, Human [Novolin R] 0 unit SQ TIDWM PRN 05/24/18 06/23/18 Previous Rx's Medication Instructions Recorded Prochlorperazine Maleate 1 tab PO Q6HR PRN #30 tablet 05/07/17 [Compazine] Levothyroxine [Synthroid] 88 mcg PO 0630 #30 tablet 11/23/17 Ibrutinib [Imbruvica] 420 mg PO DAILY #30 tablet 05/21/18 Furosemide [Lasix] 40 mg PO BIDDIURETIC #60 tablet 05/27/18 Allergies Allergy/AdvReac Type Severity Reaction Status Date / Time naproxen Allergy Mild Hives Verified 06/08/18 14:46 rituximab Allergy Mild Hives Verified 06/08/18 14:46 JUAN RAMON Inhibitors AdvReac Mild NECK PAIN Verified 06/08/18 14:46 cefdinir AdvReac Mild Dizziness Verified 06/08/18 14:46 hydrocodone AdvReac Mild Vomiting Verified 06/08/18 14:46 levofloxacin AdvReac Mild Dizziness Verified 06/08/18 14:46 ramipril [From Altace] AdvReac Mild NECK PAIN Verified 06/08/18 14:46 tramadol AdvReac Mild Nausea Verified 06/08/18 14:46 doxycycline AdvReac Vomiting Verified 06/08/18 14:46 Limitations: ROS unobtainable due to patients medical condition Past Medical History - Past Medical History Source: old records reviewed, obtained from family Medical history: Reports: cancer, cirrhosis, CHF, COPD, diabetes, GERD, hyperlipidemia, hypertension, kidney stones, myocardial infarction Surgical history: Reports: LE stent(s) Psychiatric history: Reports: depression - Social History Smoking Status: Former smoker Smokeless Tobacco Status: No Alcohol use: Reports: none Drug use: Reports: none Physical Exam - General Limitations: altered mental status General appearance: lethargic (Arousable to verbal and tactile stimuli. Knows name but confused to date) - Head Head exam: atraumatic - ENT ENT exam: normal exam - Neck Neck exam: Present: normal inspection, full ROM - Chest Chest inspection: Present: normal inspection, symmetric chest wall rise - Respiratory Respiratory exam: Present: normal lung sounds bilaterally - Cardiovascular Cardiovascular exam: Present: regular rate, normal rhythm, normal heart sounds - Abdominal Exam Abdominal exam: Present: soft, distention (Abdomen firm. Enlarged liver. caput medusa present) - Rectal Exam Rectal exam: Present: deferred - Extremities Exam Extremities exam: Present: pedal edema - Neurological Exam Neurological exam: Present: alert, other (Confused to place and time. Recognizes ) - Psychiatric Psychiatric exam: Present: flat affect - Skin Skin exam: Present: warm, dry, intact Course Course Narrative: Patient presents the emergency department with altered mental status. He has a known history of hepatic cirrhosis. I favor hepatic encephalopathy. Workup initiated. - Reevaluation(s) Reevaluation #1: Patient resting comfortably. I will request admission to the medicine service for chronic anemia, chronic thrombocytopenia, hepatic encephalopathy. Vital Signs Temperature 98.1 F 06/23/18 08:07 Pulse Rate 70 06/23/18 08:07 Respiratory Rate 18 06/23/18 08:07 Blood Pressure 133/66 06/23/18 08:07 O2 Sat by Pulse Oximetry 99 06/23/18 08:07 Temperature 98.1 F 06/23/18 08:07 Pulse Rate 76 06/23/18 09:25 Respiratory Rate 18 06/23/18 09:25 Blood Pressure 135/66 06/23/18 09:25 O2 Sat by Pulse Oximetry 95 06/23/18 09:25 Oxygen Delivery Oxygen Delivery Nasal Cannula Altered Mental Status - Medical Records Medical records reviewed: Yes I reviewed the patient's medical records. - Lab Data Lab results reviewed: Yes I reviewed the patient's lab results. Result diagrams: 06/23/18 08:14 06/23/18 08:14 Lab Results 09/26/18 09/26/18 09/26/18 Range/Units 08:14 08:14 08:14 WBC 6.9 (4.3-11.1) K/mcL RBC 3.09 L (4.19-5.50) M/mcL Hgb 9.4 L (12.9-16.9) g/dL Hct 31.6 L (37.5-50.1) % MCV 102.3 H (83.0-100.0) fL MCH 30.4 (28.0-33.3) pg MCHC 29.7 L (31.6-35.5) g/dL RDW 16.6 H (11.5-14.5) % Plt Count 58 L (140-400) K/mcL MPV 10.0 (9.4-12.4) fL Immature Gran % 4.6 H (0-4) % Seg Neutrophils % 47.0 % Lymphocytes % 39.2 % Monocytes % 7.4 % Eosinophils % 1.2 % Basophils % 0.6 % Neutrophils # 3.2 (1.6-8.9) K/mcL Lymphocytes # 2.7 (0.6-4.6) K/mcL Monocytes # 0.5 (0.0-1.3) K/mcL Eosinophils # 0.1 (0.0-0.6) K/mcL Basophils # 0.0 (0.0-0.2) K/mcL Nucleated RBCs/100 WBC 0.4 H (0) /100 WBC Immature Plt Fraction 8.0 H (1.1-6.1) % PT 11.9 (9.4-12.1) Seconds INR 1.1 Sodium 146 H (136-145) mEq/L Potassium 4.2 (3.5-5.1) mEq/L Chloride 95 L (98-107) mEq/L Carbon Dioxide > 45 H* (23-29) mEq/L BUN 16 (6-20) mg/dL Creatinine 0.95 (0.70-1.30) mg/dL Est GFR ( Amer) > 60 (> 60) Est GFR (Non-Af Amer) > 60 (> 60) BUN/Creatinine Ratio 17 (6-26) Glucose 178 H (70-105) mg/dL Calculated Osmolality 308 H (280-300) Calcium 9.7 (8.6-10.3) mg/dL Magnesium 1.6 (1.6-2.6) mg/dL Total Bilirubin 2.5 H (0.3-1.0) mg/dL AST 14 (13-39) Units/L ALT 11 (7-52) Units/L Alkaline Phosphatase 84 (34-104) Units/L Ammonia (16-53) mcmol/L Troponin I < 0.03 (< 0.04) ng/mL Serum Total Protein 5.9 L (6.4-8.9) g/dL Albumin 4.1 (3.5-5.7) g/dL Globulin 1.8 L (2.4-3.5) g/dL Albumin/Globulin Ratio 2.3 H (1.1-2.2) Lipase 13 (11-82) Units/L Urine Color (Yellow) Urine Clarity (Clear) Urine pH (5.0-8.0) pH Units Ur Specific [place] (1.010-1.025) Urine Protein (Neg-Trace) mg/dL Urine Glucose (UA) (Normal) mg/dL Urine Ketones (Negative) mg/dL Urine Blood (Negative) Urine Nitrite (Negative) Urine Bilirubin (Negative) Urine Urobilinogen (Normal) mg/dL Ur Leukocyte Esterase (Negative) 06/23/18 06/23/18 Range/Units 08:14 Unknown WBC (4.3-11.1) K/mcL RBC (4.19-5.50) M/mcL Hgb (12.9-16.9) g/dL Hct (37.5-50.1) % MCV (83.0-100.0) fL MCH (28.0-33.3) pg MCHC (31.6-35.5) g/dL RDW (11.5-14.5) % Plt Count (140-400) K/mcL MPV (9.4-12.4) fL Immature Gran % (0-4) % Seg Neutrophils % % Lymphocytes % % Monocytes % % Eosinophils % % Basophils % % Neutrophils # (1.6-8.9) K/mcL Lymphocytes # (0.6-4.6) K/mcL Monocytes # (0.0-1.3) K/mcL Eosinophils # (0.0-0.6) K/mcL Basophils # (0.0-0.2) K/mcL Nucleated RBCs/100 WBC (0) /100 WBC Immature Plt Fraction (1.1-6.1) % PT (9.4-12.1) Seconds INR Sodium (136-145) mEq/L Potassium (3.5-5.1) mEq/L Chloride (98-107) mEq/L Carbon Dioxide (23-29) mEq/L BUN (6-20) mg/dL Creatinine (0.70-1.30) mg/dL Est GFR ( Amer) (> 60) Est GFR (Non-Af Amer) (> 60) BUN/Creatinine Ratio (6-26) Glucose (70-105) mg/dL Calculated Osmolality (280-300) Calcium (8.6-10.3) mg/dL Magnesium (1.6-2.6) mg/dL Total Bilirubin (0.3-1.0) mg/dL AST (13-39) Units/L ALT (7-52) Units/L Alkaline Phosphatase (34-104) Units/L Ammonia 73 H (16-53) mcmol/L Troponin I (< 0.04) ng/mL Serum Total Protein (6.4-8.9) g/dL Albumin (3.5-5.7) g/dL Globulin (2.4-3.5) g/dL Albumin/Globulin Ratio (1.1-2.2) Lipase (11-82) Units/L Urine Color Yellow (Yellow) Urine Clarity Clear (Clear) Urine pH 5.5 (5.0-8.0) pH Units Ur Specific [place] 1.012 (1.010-1.025) Urine Protein Negative (Neg-Trace) mg/dL Urine Glucose (UA) Normal (Normal) mg/dL Urine Ketones Negative (Negative) mg/dL Urine Blood Negative (Negative) Urine Nitrite Negative (Negative) Urine Bilirubin Negative (Negative) Urine Urobilinogen Normal (Normal) mg/dL Ur Leukocyte Esterase Negative (Negative) - Radiology Data Radiology results reviewed: Yes I reviewed the patient's radiology results. - EKG Data EKG attestation: Yes I reviewed and interpreted this EKG. EKG results narrative: Normal sinus rhythm rate 66 P-R 161 QRS 112 QT/QTC 587/616. No acute ST segment elevation. No study available at the time of arrival for comparison. TPA Checklist - LKW: 3-4.5 hrs Add. Warnings/Precautions Patient/family understanding: The patient/family members have been counseled and understood the risk, benefit , and alternatives of treatment. Critical Care Time Critical Care Time: Yes Total Critical Care Time: 30 Attestation: The high probability of a clinically significant, sudden or life threatening deterioration of the [] system(s) required my full and direct attention, intervention and personal management. The aggregate critical care time was [] minutes. This time is in addition to time spent performing reported procedures but includes the following: [] Data Review and interpretation [] Patient assessment and monitoring of vital signs [] Documentation [] Medication orders and management
[2018-06-23] MEDS ORDERED: Naloxone 0.4 MG/ML INJ IVP ONE (08:18)
[2018-06-23 08:29] LABS: Basophils % 0.6 %
[2018-06-23 08:30] LABS: Eosinophils # 0.1 K/mcL (0.0-0.6); Eosinophils % 1.2 %; Hematocrit 31.6 % (37.5-50.1); Hemoglobin 9.4 g/dL (12.9-16.9); Immature Granulocytes % 4.6 % (0-4); Lymphocytes # 2.7 K/mcL (0.6-4.6); Lymphocytes % 39.2 %; Mean Corpuscular HGB Conc 29.7 g/dL (31.6-35.5); Mean Corpuscular Hemoglobin 30.4 pg (28.0-33.3); Mean Corpuscular Volume 102.3 fL (83.0-100.0); Monocytes # 0.5 K/mcL (0.0-1.3); Monocytes % 7.4 %; Neutrophils # 3.2 K/mcL (1.6-8.9); Nucleated Red Blood Cells 0.4 /100 WBC (0); Red Blood Count 3.09 M/mcL (4.19-5.50); Red Cell Distribution Width 16.6 % (11.5-14.5)
[2018-06-23 08:32] LABS: Platelet Count 58 K/mcL (140-400)
[2018-06-23 08:36] LABS: INR 1.1; Prothrombin Time 11.9 Seconds (9.4-12.1)
[2018-06-23 08:53] LABS: Troponin I < 0.03 ng/mL (< 0.04)
[2018-06-23 08:57] LABS: Alanine Aminotransferase 11 Units/L (7-52); Albumin 4.1 g/dL (3.5-5.7); Albumin/Globulin Ratio 2.3 (1.1-2.2); Alkaline Phosphatase 84 Units/L (34-104); Aspartate Amino Transferase 14 Units/L (13-39); BUN/Creatinine Ratio 17 (6-26); Bilirubin,Total 2.5 mg/dL (0.3-1.0); Blood Urea Nitrogen 16 mg/dL (6-20); Calcium 9.7 mg/dL (8.6-10.3); Carbon Dioxide > 45 mEq/L (23-29); Chloride 95 mEq/L (98-107); Globulin 1.8 g/dL (2.4-3.5); Glucose 178 mg/dL (70-105); Lipase 13 Units/L (11-82); Magnesium 1.6 mg/dL (1.6-2.6); Osmolality,Calculated 308 (280-300); Potassium 4.2 mEq/L (3.5-5.1); Sodium 146 mEq/L (136-145); Total Protein 5.9 g/dL (6.4-8.9); eGFR For Non-African Americans > 60 (> 60)
[2018-06-23 09:16] LABS: Bilirubin,Urine Negative (Negative); Blood,Urine Negative (Negative); Clarity,Urine Clear (Clear); Color,Urine Yellow (Yellow); Glucose,Urine (UA) Normal (Normal); Ketones,Urine Negative (Negative); Leukocyte Esterase,Urine Negative (Negative); Nitrite,Urine Negative (Negative); PH,Urine 5.5 pH Units (5.0-8.0); Protein,Urine Negative (Neg-Trace); Specific Gravity,Urine 1.012 (1.010-1.025); Urobilinogen,Urine Normal (Normal)
[2018-06-23 09:38] LABS: ABG Base Excess 22 mEq/L (-2 to 3); ABG HCO3 55 mEq/L (21-27); ABG Oxygen Saturation 90 % (95-98); ABG PCO2 142 mmHg (35-45); ABG PH 7.19 pH Units (7.32-7.45); ABG PO2 80 mmHg (85-104); ABG TCO2 59 mEq/L (20-26)
[2018-06-23] MEDS ORDERED: Naloxone 0.4 MG/ML INJ IVP PRN (11:00)
--- NOTE | 2018-06-23 11:03 | Internal Med History&Physical ---
Date of Encounter: 06/23/18 Time of Encounter: 11:00 Internal Medicine - H&P: HPI Chief complaint: Altered Mental Status Admitted From: Home Plans for Post Hospital Care: Transfer [facility] History of present illness: Mr. Fang is a 58 year old male with past history of CLL who presents to [facility] with chief complaint of altered mental status with . Patient's states that over the past day he has become increasingly more altered and confused. She states that this morning he was talking incoherently and can barely move. She states that his oxygen saturation at home was in the 60s. Upon evaluation in the emergency department the patient was somnolent but arousable and found to have a slightly elevated ammonia and was given lactulose. Patient was also found to be severely hypercapnic and was placed on BiPAP. Imaging showed recurrent of moderate to large left-sided pleural effusion. Patient required chest tube for loculated pleural effusion recently. Patient is also had recurrent ascites and had 6 L removed last hospitalization. The patient's states that his abdomen is becoming enlarged again. He states that he continues to be on chemotherapy for his CLL. By my evaluation the patient is still lethargic and opens eyes to sternal rub only. Repeat ABG pending, may need to be intubated, this was discussed with who states that he is full code and she understands. She states that he was not complaining of anything else recently. Further review of systems is unable to be obtained secondary to mental status. Past Med Surg Social Fam HX - Past Medical History Medical history: cancer, cirrhosis, CHF, COPD, diabetes, GERD, hyperlipidemia, hypertension, kidney stones, myocardial infarction Additional medical history: morbid obesity with BMI of 45-49 adult. history of colon polyps. stomach polyp removed. esophageal varicies banded. chronic lymphatic leukemia Psychiatric history: depression - Past Surgical History Surgical History: LE stent(s) Additional surgical history: 3 cardiac stents. left knee. Hernia repair. Kidney stones. esophageal varicies. stomach polyp removed and clamp placed - Social History Smoking Status: Former smoker Smokeless Tobacco Status: No Alcohol use: none Drug use: none - Family History Mother Family Member Ethnicity: Non- Living Status: Hx Family Respiratory Disorders: Yes (COPD) Father Family Member Ethnicity: Non- Living Status: Hx Family Cancer: Yes (Small cell lung & Throat) Brother Family Member Ethnicity: Non- Living Status: Sister Family Member Ethnicity: Non- Living Status: Hx Family Respiratory Disorders: Yes (COPD) Internal Medicine - H&P: Meds ALPRAZolam [Xanax 1 MG Tablet] 1 mg PO BID PRN 05/09/15 [History] Atorvastatin Calcium [Lipitor] 20 mg PO HS 05/09/15 [History] Metformin HCl [Glucophage] 1,000 mg PO BID 05/09/15 [History] Oxygen 3 l NS HS 03/26/16 [History] Spironolactone [Aldactone] 100 mg PO DAILY 03/26/16 [History] OxyCODONE/APAP 10/325 [Percocet 10/325 MG] 1 tab PO Q6H PRN 07/30/16 [History] Insulin Glargine,Hum.rec.anlog [Lantus Solostar] 50 unit SQ BID 12/24/16 [ History] Prochlorperazine Maleate [Compazine] 1 tab PO Q6HR PRN #30 tablet 05/07/17 [Rx] Gabapentin [Neurontin] 300 mg PO BID 07/15/17 [History] Levothyroxine [Synthroid] 88 mcg PO 0630 #30 tablet 11/23/17 [Rx] Sucralfate [Carafate] 1 gm PO TID 03/09/18 [History] Aspirin 81 mg PO AD 03/26/18 [History] Lactulose [Kristalose] 20 gm PO TID 03/26/18 [History] Pantoprazole Sodium [Protonix] 40 mg PO DAILY 03/26/18 [History] Metoprolol [Lopressor] 75 mg PO BID 05/01/18 [History] Nitroglycerin [Nitromist] 1 - 2 spr SL Q5M PRN 05/01/18 [History] Ibrutinib [Imbruvica] 420 mg PO DAILY #30 tablet 05/21/18 [Rx] Insulin Regular, Human [Novolin R] 0 unit SQ TIDWM PRN 05/24/18 [History] Furosemide [Lasix] 40 mg PO BIDDIURETIC #60 tablet 05/27/18 [Rx] 3 Allergy/AdvReac Type Severity Reaction Status Date / Time naproxen Allergy Mild Hives Verified 06/08/18 14:46 rituximab Allergy Mild Hives Verified 06/08/18 14:46 JUAN RAMON Inhibitors AdvReac Mild NECK PAIN Verified 06/08/18 14:46 cefdinir AdvReac Mild Dizziness Verified 06/08/18 14:46 hydrocodone AdvReac Mild Vomiting Verified 06/08/18 14:46 levofloxacin AdvReac Mild Dizziness Verified 06/08/18 14:46 ramipril [From Altace] AdvReac Mild NECK PAIN Verified 06/08/18 14:46 tramadol AdvReac Mild Nausea Verified 06/08/18 14:46 doxycycline AdvReac Vomiting Verified 06/08/18 14:46 ROS unobtainable: due to mental status All Systems PM: A 10-system review of systems was performed and is negative for pertinent findings except as documented above in the HPI. Review of systems: Complete review of systems unable to be obtained secondary to the patient's altered mental status and inability to converse. - Constitutional Vitals: Temp Pulse Resp BP Pulse Ox 98.1 F 76 16 135/66 94 06/23/18 08:07 06/23/18 09:25 06/23/18 09:47 06/23/18 09:47 06/23/18 09:47 Exam: Constitutional: On BiPAP, no obvious distress however is lethargic Psych: AAO x 0; opens eyes to sternal rub only HEENT: NCAT, EOMI Neck: supple, no JVD Cardio: regular rate and rhythm, +s1s2, no murmurs/rubs/gallops, no JVD Resp: Decreased breath sounds especially on the left side Abd: Distended and tense likely due to ascites, not rigid Extremities: Trace edema in lower extremities Neuro: Only opens eyes to sternal rub; full neurologic exam limited Lymph: no cervical/supraclavicular adenopahty apprecitated Internal Med - H&P Results - Labs CBC & Chem 7: 06/23/18 08:14 06/23/18 08:14 Labs: Urine 06/23/18 Range/Units Unknown Urine Color Yellow (Yellow) Urine Clarity Clear (Clear) Urine pH 5.5 (5.0-8.0) pH Units Ur Specific [place] 1.012 (1.010-1.025) Urine Protein Negative (Neg-Trace) mg/dL Urine Glucose (UA) Normal (Normal) mg/dL - Assessment and plan (1) Acute on chronic respiratory failure with hypoxia and hypercapnia Current Visit: Yes Status: Acute Assessment and plan: Patient with acute on chronic hypoxic and hypercapnic respiratory failure. Likely secondary to recurrent pleural effusion. -Recently required thoracentesis with chest tube for loculated effusion that was exudative. -Has history of CLL. - reports that he has a home BiPAP however he is not very tolerant of it and it does not fit his face well -PH on admission was 7.19 with PCO2 of 142 -Currently on BiPAP remains lethargic -We will repeat ABG now -Showed very high risk for decompensation requiring intubation was discussed with who understands and agrees if needed -Consult pulmonology for evaluation for pleurex catheter vs other options; has chirrosis so chest tube could be problematic; will consulte IR for paracentesis first and attempt diuresis if BP allows after paracentesis (2) Encephalopathy Current Visit: Yes Status: Acute Assessment and plan: -Secondary to severe hypercapnia -Also could have some component of hepatic encephalopathy with elevated ammonia -Patient was given lactulose and EGD per provider -Currently on BiPAP -Repeat ABG pending -Remains lethargic, may require intubation if does not improve (3) Pleural effusion Current Visit: Yes Status: Acute Assessment and plan: Moderate to large left-sided pleural effusion that is recurrent -Has cirrhosis so chest tube could be problematic -Also with tense ascites -Consult IR for paracentesis and attempt diuresis to improve pleural effusion -Still may need Pleurx catheter at some point -Neurology consultation (4) Ascites Current Visit: Yes Status: Acute Assessment and plan: -Patient with chronic ascites and history of cirrhosis -Has had paracenteies previously -This is worsening per and now tense -We will consult IR for paracentesis Qualifiers: Ascites type: other type Qualified Code(s): R18.8 - Other ascites (5) CLL (chronic lymphocytic leukemia) Current Visit: Yes Status: Acute Assessment and plan: -outpt oncology f/u -on chemo currently (6) Thrombocytopenia Current Visit: Yes Status: Acute Assessment and plan: -Chronic; likely due to cirrhosis and CLL with chemotherapy -at baseline (7) Anemia Current Visit: Yes Status: Acute Assessment and plan: Macrocytic anemia -Suspect secondary to his chronic diseases and CLL with chemotherapy -We will check iron studies, B12 and folate Qualifiers: Anemia type: unspecified type Qualified Code(s): D64.9 - Anemia, unspecified (8) DVT prophylaxis Current Visit: Yes Status: Acute Assessment and plan: -sub q heparin - Time Spent With Patient Total time spent is greater than 50% in coordination of care (as documented) at patient's floor/unit and/or counseling patient: Greater than 35 minutes (50 miutes)
[2018-06-23] MEDS ORDERED: *HR* OxyCODONE/APAP 10/325 TABLET PO PRN (11:43)
[2018-06-23 11:46] LABS: ABG Base Excess 19 mEq/L (-2 to 3); ABG HCO3 48 mEq/L (21-27); ABG Oxygen Saturation 95 % (95-98); ABG PCO2 100 mmHg (35-45); ABG PH 7.29 pH Units (7.32-7.45); ABG PO2 91 mmHg (85-104); ABG TCO2 51 mEq/L (20-26)
--- NOTE | 2018-06-23 12:08 | Event Note ---
Date of Encounter: 06/23/18 Time of Encounter: 12:07 Patient reevaluated. ABG is improved pH up to 7.29 and CO2 down to 100. Remains on BiPAP. Mental status is improving patient now awakens and nods appropriately to questions. Talked about management will request a stepdown bed for close monitoring. Patient remains at very high risk for a complications and deterioration.
--- NOTE | 2018-06-23 14:33 | Pulmonology Consult Note ---
<GoodMickey - Last Filed: 06/23/18 17:00> Date of Encounter: 06/23/18 Assessment and Plan (1) Acute on chronic respiratory failure with hypoxia and hypercapnia Current Visit: Yes Status: Acute - Secondary to his history of COPD and diastolic CHF, - Patient's ABG showed primary respiratory acidosis chronic with secondary metabolic alkalosis (pH 7.29, pCO2: 100 HCO3: 48) -patient is on 2 L of oxygen at home , his last echo has an EF of 50% - On physical exam diminished breath sounds bilaterally appreciated, no crackles. Lower extremity mildly edematous. - Currently on BiPAP satting at 96%, continue to monitor, duonebs PRN. - (2) Pleural effusion Current Visit: Yes Status: Acute - Likely multifactorial. It could be hepatic hydrothorax secondary to his history of chronic cirrhosis(MELD score 11) , or it could also be secondary to his diastolic CHF. (last Echo 50%) , or due to CLL - Has a history of recurrent pleural effusion with the last admission being a loculated pleural effusion and had a chest tube placement. - With his multiple admissions for pleural effusion and ascites, it is likely that cirrhosis is playing a significant role in development of these pathologies and patient would highly benefit from a TIPS procedure. Meanwhile for symptomatic relief, benefit he might need the Pleurax Catheter. (3) Ascites Current Visit: Yes Status: Chronic - Likely secondary to his history of cirrhosis. (INR 1.1, Platelets : 58, MELD: 11, ammonia: 73) -Patient is currently s/p paracentesis, drained 7L fluid He has paracentesis about a month ago for the same condition, his lasix dose was increased that time. - Continue on 20 mg PO TID lactulose. Given 70 mg Albumin to prevent hepatorenal syndrome -He will benefit from a potential TIPS procedure to prevent recurrent admissions for ascites. Qualifiers: Ascites type: other type Qualified Code(s): R18.8 - Other ascites History of Present Illness Chief complaint: acute on chronic hypoxic and History of present illness: Mr. Fang is a 58 y.o male with a PMHx of decompensated liver cirrhosis, pancytopenia, diabetes mellitus, coronary artery disease, hyperlipidemia, HTN, COPD, hypothyroidism, obesity, chronic hypoxic and hypercapnic respiratory failure on 2L home oxygen and BiPAP who was admitted to the floor because of altered mental status and confusion . Much of the history was obtained from patient's . According to her, he was conversing in an incoherent manner and was barely able to move, satting at 60% on 2 L of home oxygen and that is when she decided to get him to the ED. Patient has had multiple admissions in the past for acute on chronic hypercapnic respiratory failure, pleural effusions and ascites. His last visit was about a month ago for worsening abdominal distention, secondary to cirrhosis with MELD score of 12 and underwent paracentesis. Prior to that visit, he was admitted for pleural effusion and underwent thoracentesis which was transudative in nature . Currently he is on BiPAP satting at 96%. Medications and Allergies ALPRAZolam [Xanax 1 MG Tablet] 1 mg PO BID PRN 05/09/15 [History] Atorvastatin Calcium [Lipitor] 20 mg PO HS 05/09/15 [History] Metformin HCl [Glucophage] 1,000 mg PO BID 05/09/15 [History] Oxygen 3 l NS HS 03/26/16 [History] Spironolactone [Aldactone] 100 mg PO DAILY 03/26/16 [History] OxyCODONE/APAP 10/325 [Percocet 10/325 MG] 1 tab PO Q6H PRN 07/30/16 [History] Insulin Glargine,Hum.rec.anlog [Lantus Solostar] 50 unit SQ BID 12/24/16 [ History] Prochlorperazine Maleate [Compazine] 1 tab PO Q6HR PRN #30 tablet 05/07/17 [Rx] Gabapentin [Neurontin] 300 mg PO BID 07/15/17 [History] Levothyroxine [Synthroid] 88 mcg PO 0630 #30 tablet 11/23/17 [Rx] Sucralfate [Carafate] 1 gm PO TID 03/09/18 [History] Aspirin 81 mg PO AD 03/26/18 [History] Lactulose [Kristalose] 20 gm PO TID 03/26/18 [History] Pantoprazole Sodium [Protonix] 40 mg PO DAILY 03/26/18 [History] Metoprolol [Lopressor] 75 mg PO BID 05/01/18 [History] Nitroglycerin [Nitromist] 1 - 2 spr SL Q5M PRN 05/01/18 [History] Ibrutinib [Imbruvica] 420 mg PO DAILY #30 tablet 05/21/18 [Rx] Insulin Regular, Human [Novolin R] 0 unit SQ TIDWM PRN 05/24/18 [History] Furosemide [Lasix] 40 mg PO BIDDIURETIC #60 tablet 05/27/18 [Rx] 3 Allergy/AdvReac Type Severity Reaction Status Date / Time naproxen Allergy Mild Hives Verified 06/08/18 14:46 rituximab Allergy Mild Hives Verified 06/08/18 14:46 JUAN RAMON Inhibitors AdvReac Mild NECK PAIN Verified 06/08/18 14:46 cefdinir AdvReac Mild Dizziness Verified 06/08/18 14:46 hydrocodone AdvReac Mild Vomiting Verified 06/08/18 14:46 levofloxacin AdvReac Mild Dizziness Verified 06/08/18 14:46 ramipril [From Altace] AdvReac Mild NECK PAIN Verified 06/08/18 14:46 tramadol AdvReac Mild Nausea Verified 06/08/18 14:46 doxycycline AdvReac Vomiting Verified 06/08/18 14:46 All Systems: The remainder of the systems were reviewed and are negative Physical Examination Vital Signs: Vital Signs, Last 4 Hours Pulse Resp BP Pulse Ox 06/23/18 13:49 16 118/64 06/23/18 11:45 69 16 137/74 100 General appearance: asleep (on BiPAP) Auscultation: bilateral: diminished breath sounds Percussion: bilateral: not dull Cardiovascular: regular rate and rhythm (no gallops, murmurs or rubs) Gastrointestinal: other (distended due ascites s/p paracentesis) pupils equal and round (currently somnolent , but withdraws extremity to pain) Results - Laboratory Findings CBC and BMP: 06/23/18 08:14 06/23/18 08:14 ABG ABG pH 7.29 pH Units (7.32-7.45) L 06/23/18 11:43 ABG pCO2 100 mmHg (35-45) H* D 06/23/18 11:43 ABG pO2 91 mmHg (85-104) 06/23/18 11:43 ABG O2 Saturation 95 % (95-98) 06/23/18 11:43 PT/INR, D-dimer PT 11.9 Seconds (9.4-12.1) 06/23/18 08:14 Abnormal lab findings: Abnormal lab results RBC 3.09 M/mcL (4.19-5.50) L 06/23/18 08:14 Hgb 9.4 g/dL (12.9-16.9) L 06/23/18 08:14 Hct 31.6 % (37.5-50.1) L 06/23/18 08:14 MCV 102.3 fL (83.0-100.0) H 06/23/18 08:14 MCHC 29.7 g/dL (31.6-35.5) L 06/23/18 08:14 RDW 16.6 % (11.5-14.5) H 06/23/18 08:14 Plt Count 58 K/mcL (140-400) L 06/23/18 08:14 Immature Gran % 4.6 % (0-4) H 06/23/18 08:14 Nucleated RBCs/100 WBC 0.4 /100 WBC (0) H 06/23/18 08:14 Immature Plt Fraction 8.0 % (1.1-6.1) H 06/23/18 08:14 ABG pH 7.29 pH Units (7.32-7.45) L 06/23/18 11:43 ABG pCO2 100 mmHg (35-45) H* D 06/23/18 11:43 ABG HCO3 48 mEq/L (21-27) H 06/23/18 11:43 ABG Total CO2 51 mEq/L (20-26) H 06/23/18 11:43 ABG Base Excess 19 mEq/L (-2 to 3) H 06/23/18 11:43 Sodium 146 mEq/L (136-145) H 06/23/18 08:14 Chloride 95 mEq/L (98-107) L 06/23/18 08:14 Carbon Dioxide > 45 mEq/L (23-29) H* 06/23/18 08:14 Glucose 178 mg/dL (70-105) H 06/23/18 08:14 Calculated Osmolality 308 (280-300) H 06/23/18 08:14 Total Bilirubin 2.5 mg/dL (0.3-1.0) H 06/23/18 08:14 Ammonia 73 mcmol/L (16-53) H 06/23/18 08:14 B-Natriuretic Peptide 134 pg/mL (Less than 100) H 06/23/18 08:14 Serum Total Protein 5.9 g/dL (6.4-8.9) L 06/23/18 08:14 Globulin 1.8 g/dL (2.4-3.5) L 06/23/18 08:14 Albumin/Globulin Ratio 2.3 (1.1-2.2) H 06/23/18 08:14 Consult Discharge Plan - Plan Referrals: Derick Ellis DO [Primary Care Provider] - <Jose Juan Kumar S - Last Filed: 06/23/18 20:41> Date of Encounter: 06/23/18 Time of Encounter: 14:00 History of Present Illness Consult date: 06/23/18 Requesting physician: Pieter Patel Reason for consult: pleural effusion, other (acute on chronic hypoxic and hypercapnic respiratory failure ) Past Med Surg Social Fam HX - Past Medical History Medical history: cancer, cirrhosis, CHF, COPD, diabetes, GERD, hyperlipidemia, hypertension, kidney stones, myocardial infarction Additional medical history: morbid obesity with BMI of 45-49 adult. history of colon polyps. stomach polyp removed. esophageal varicies banded. chronic lymphatic leukemia Psychiatric history: depression - Past Surgical History Surgical History: LE stent(s) Additional surgical history: 3 cardiac stents. left knee. Hernia repair. Kidney stones. esophageal varicies. stomach polyp removed and clamp placed - Social History Smoking Status: Former smoker Smokeless Tobacco Status: No Alcohol use: none Drug use: none - Family History Mother Family Member Ethnicity: Non- Living Status: Hx Family Respiratory Disorders: Yes (COPD) Father Family Member Ethnicity: Non- Living Status: Hx Family Cancer: Yes (Small cell lung & Throat) Brother Family Member Ethnicity: Non- Living Status: Sister Family Member Ethnicity: Non- Living Status: Hx Family Respiratory Disorders: Yes (COPD) All Systems: The remainder of the systems were reviewed and are negative Physical Examination Vital Signs: Vital Signs, Last 4 Hours Pulse Resp BP Pulse Ox 06/23/18 13:49 16 118/64 06/23/18 11:45 69 16 137/74 100 Results - Laboratory Findings CBC and BMP: 06/23/18 08:14 06/23/18 08:14 ABG ABG pH 7.29 pH Units (7.32-7.45) L 06/23/18 11:43 ABG pCO2 100 mmHg (35-45) H* D 06/23/18 11:43 ABG pO2 91 mmHg (85-104) 06/23/18 11:43 ABG O2 Saturation 95 % (95-98) 06/23/18 11:43 PT/INR, D-dimer PT 11.9 Seconds (9.4-12.1) 06/23/18 08:14 Abnormal lab findings: Abnormal lab results RBC 3.09 M/mcL (4.19-5.50) L 06/23/18 08:14 Hgb 9.4 g/dL (12.9-16.9) L 06/23/18 08:14 Hct 31.6 % (37.5-50.1) L 06/23/18 08:14 MCV 102.3 fL (83.0-100.0) H 06/23/18 08:14 MCHC 29.7 g/dL (31.6-35.5) L 06/23/18 08:14 RDW 16.6 % (11.5-14.5) H 06/23/18 08:14 Plt Count 58 K/mcL (140-400) L 06/23/18 08:14 Immature Gran % 4.6 % (0-4) H 06/23/18 08:14 Nucleated RBCs/100 WBC 0.4 /100 WBC (0) H 06/23/18 08:14 Immature Plt Fraction 8.0 % (1.1-6.1) H 06/23/18 08:14 ABG pH 7.29 pH Units (7.32-7.45) L 06/23/18 11:43 ABG pCO2 100 mmHg (35-45) H* D 06/23/18 11:43 ABG HCO3 48 mEq/L (21-27) H 06/23/18 11:43 ABG Total CO2 51 mEq/L (20-26) H 06/23/18 11:43 ABG Base Excess 19 mEq/L (-2 to 3) H 06/23/18 11:43 Sodium 146 mEq/L (136-145) H 06/23/18 08:14 Chloride 95 mEq/L (98-107) L 06/23/18 08:14 Carbon Dioxide > 45 mEq/L (23-29) H* 06/23/18 08:14 Glucose 178 mg/dL (70-105) H 06/23/18 08:14 Calculated Osmolality 308 (280-300) H 06/23/18 08:14 Total Bilirubin 2.5 mg/dL (0.3-1.0) H 06/23/18 08:14 Ammonia 73 mcmol/L (16-53) H 06/23/18 08:14 B-Natriuretic Peptide 134 pg/mL (Less than 100) H 06/23/18 08:14 Serum Total Protein 5.9 g/dL (6.4-8.9) L 06/23/18 08:14 Globulin 1.8 g/dL (2.4-3.5) L 06/23/18 08:14 Albumin/Globulin Ratio 2.3 (1.1-2.2) H 06/23/18 08:14 - Attending Attestation I saw and evaluated this patient and my medical decision-making was reviewed with the Resident Physician. I agree with the documented findings, disposition and treatment plan as described except to the extent set forth below. We independently had [id number] contact with the patient Patient seen and examined at bedside Labs, radiology, chart personally reviewed. Management was reviewed during multidisciplinary critical care rounds. Patient presenting with acute on chronic respiratory failure complicated by ascites and pleural effusion secondary to cirrhosis of liver/CHF patient coming with recurrent episodes of acute on chronic respiratory failure the 2 options to put Pleurx like catheter in this peritoneal cavity surgery can drain the fluid on and off for he will not develop any hepatic hydrothorax which will compromise his ventilatory function leading to severe V/Q mismatch presenting as altered mental status with acute on chronic respiratory failure and other option to do TIPS for this refractory ascites to conservative medical management. Spoke with patient and son will discuss more about further options tomorrow. since patient had a large-volume paracentesis today will give some albumin to reduce the risk of hepatorenal syndrome. Patient V/Q mismatch is getting better to continue the current BiPAP setting throughout the night will try to liberate from BiPAP to high flow nasal cannula in the morning we will reassess the need for thoracentesis tomorrow.
[2018-06-23 14:59] LABS: % Iron Saturation 14 % (20-55); Iron 53 mcg/dL (65-175); Transferrin 276 mg/dL (203-362)
--- NOTE | 2018-06-23 15:15 | IR Procedure Note ---
Date of procedure: 06/23/18 Consent Obtained: Written consent Timeout: Correct patient and procedure verified, Time out performed, Skin prep completed Local anesthetic: Lidocaine 1% Indications: Ascites Procedure Performed: paracentesis Was there an fiscal assistant present: Yes [place] Refinisher: Mickye Good Results/Findings: U/S guided paracentesis Estimated blood loss (cc): 0 Complications: None; Tolerated procedure well Post Procedure Treatment Plan: Monitor on floor Specimen: Sample sent
[2018-06-23 15:17] LABS: Ferritin 137 ng/mL (20-250)
[2018-06-23] MEDS ORDERED: Albumin 25% 25gram/100mL 25 GM/100 ML IV.SOLN IVPB ONE (16:43)
[2018-06-23] MEDS: Sucralfate 1 GM TABLET PO SCH ×2 (16:45→21:08)
[2018-06-23] MEDS: Aspirin 81 MG TAB.CHEW PO SCH (16:45)
[2018-06-23] MEDS: Lactulose Oral Soln 20 GM/30 ML UDC PO SCH ×2 (16:52→21:08)
[2018-06-23] MEDS: *HR* Heparin 5,000 UNIT/ML VIAL SQ SCH ×2 (16:53→23:03)
[2018-06-23 16:57] LABS: Amylase,Peritoneal Fluid 12 Units/L (No Ref Range); Glucose,Peritoneal Fluid 181 mg/dL (No Ref Range); LDH,Peritoneal Fluid 45 Units/L (No Ref Range); Total Protein,Peritoneal Fluid < 3.0 g/dL (No Ref Range)
[2018-06-23] MEDS: Furosemide 40 MG TABLET PO SCH (17:06)
[2018-06-23 17:14] LABS: Appearance of Peritoneal Fl HAZY (Clear); RBC,Peritoneal Fluid 0.014 M/mcL
[2018-06-23] MEDS: Albumin 25% 25gram/100mL 25 GM/100 ML IV.SOLN IVPB SCH ×3 (18:28→23:03)
[2018-06-23] MEDS ORDERED: NON-FORMULARY MEDICATION 1 EACH EACH (Oxygen [Oxygen] 3 L) NS SCH (21:00)
[2018-06-23] MEDS: Gabapentin 300 MG CAPSULE PO SCH (21:08)
[2018-06-23] MEDS: Insulin DETEMIR 100 UNIT/ML X5UNITS SQ SCH (21:10)
[2018-06-23] MEDS: ALPRAZolam 1 MG TABLET PO PRN (21:23)
[2018-06-24 04:40] LABS: Basophils % 0.3 %; Eosinophils % 1.1 %; Hematocrit 22.5 % (37.5-50.1); Hemoglobin 6.8 g/dL (12.9-16.9); Mean Corpuscular HGB Conc 30.2 g/dL (31.6-35.5); Mean Corpuscular Hemoglobin 30.1 pg (28.0-33.3); Mean Corpuscular Volume 99.6 fL (83.0-100.0); Red Blood Count 2.26 M/mcL (4.19-5.50)
[2018-06-24 04:42] LABS: Immature Granulocytes % 2.6 % (0-4); Immature Platelets 7.9 % (1.1-6.1); Lymphocytes # 1.8 K/mcL (0.6-4.6); Lymphocytes % 52.4 %; Mean Platelet Volume 10.2 fL (9.4-12.4); Monocytes # 0.3 K/mcL (0.0-1.3); Monocytes % 7.7 %; Neutrophils # 1.3 K/mcL (1.6-8.9); Platelet Count 43 K/mcL (140-400); Red Cell Distribution Width 16.1 % (11.5-14.5); Segmented Neutrophils % 35.9 %
[2018-06-24 05:19] LABS: Alanine Aminotransferase 7 Units/L (7-52); Albumin 3.7 g/dL (3.5-5.7); Albumin/Globulin Ratio 3.4 (1.1-2.2); Alkaline Phosphatase 59 Units/L (34-104); Aspartate Amino Transferase 10 Units/L (13-39); BUN/Creatinine Ratio 18 (6-26); Bilirubin,Total 2.2 mg/dL (0.3-1.0); Blood Urea Nitrogen 16 mg/dL (6-20); Calcium 9.3 mg/dL (8.6-10.3); Carbon Dioxide > 45 mEq/L (23-29); Chloride 91 mEq/L (98-107); Globulin 1.1 g/dL (2.4-3.5); Glucose 106 mg/dL (70-105); Magnesium 1.6 mg/dL (1.6-2.6); Osmolality,Calculated 298 (280-300); Phosphorous 2.2 mg/dL (2.7-4.5); Potassium 3.5 mEq/L (3.5-5.1); Sodium 143 mEq/L (136-145); Total Protein 4.8 g/dL (6.4-8.9); eGFR For Non-African Americans > 60 (> 60)
[2018-06-24] MEDS ORDERED: 0.9 % Sodium Chloride 250 ML ONE ×2 (07:45→13:44)
[2018-06-24] MEDS: Insulin DETEMIR 100 UNIT/ML X5UNITS SQ SCH ×2 (07:59→20:32)
[2018-06-24] MEDS: Lactulose Oral Soln 20 GM/30 ML UDC PO SCH ×3 (08:00→20:32)
[2018-06-24] MEDS: Gabapentin 300 MG CAPSULE PO SCH ×2 (08:00→20:32)
[2018-06-24] MEDS: *HR* Heparin 5,000 UNIT/ML VIAL SQ SCH (08:00)
[2018-06-24] MEDS: Furosemide 40 MG TABLET PO SCH (08:00)
[2018-06-24] MEDS: Sucralfate 1 GM TABLET PO SCH ×2 (08:00→16:30)
--- NOTE | 2018-06-24 08:32 | Pulmonology Progress Note ---
<Mickey Good - Last Filed: 06/24/18 16:57> Date of Encounter: 06/24/18 Time of Encounter: 09:00 Assessment and Plan (1) Acute on chronic respiratory failure with hypoxia and hypercapnia Current Visit: Yes Status: Acute Secondary to his history of COPD and diastolic CHF, - Patient's ABG showed primary respiratory acidosis chronic with secondary metabolic alkalosis (pH 7.29, pCO2: 100 HCO3: 48) -patient is on 2 L of oxygen at home , his last echo has an EF of 50% - On physical exam diminished breath sounds bilaterally appreciated, no crackles. Lower extremity mildly edematous. - Currently on BiPAP satting at 93%, continue to monitor, duonebs PRN. (2) Pleural effusion Current Visit: Yes Status: Acute - Likely multifactorial. It could be hepatic hydrothorax secondary to his history of chronic cirrhosis(MELD score 11) , or it could also be secondary to his diastolic CHF. (last Echo 50%) , or due to CLL - Has a history of recurrent pleural effusion with the last admission being a loculated pleural effusion and had a chest tube placement. - With his multiple admissions for pleural effusion and ascites, it is likely that cirrhosis is playing a significant role in development of these pathologies and patient would highly benefit from a TIPS procedure. Meanwhile for symptomatic relief, benefit he might need the Pleurax Catheter. - Evaluated the pleural effusion via a bed side ultrasound and the fluid pocket was not optimal for a Thoracenteiss, continue diuresis. (3) Ascites Current Visit: Yes Status: Chronic - Likely secondary to his history of cirrhosis. (INR 1.1, Platelets : 58, MELD: 11, ammonia: 73) -Patient is currently s/p paracentesis, drained 7L fluid . No signs of SBP. He has paracentesis about a month ago for the same condition, his lasix dose was increased that time. - Continue on 20 mg PO TID lactulose. Given 70 mg Albumin to prevent hepatorenal syndrome -He will benefit from a potential TIPS procedure to prevent recurrent admissions for ascites. Qualifiers: Ascites type: other type Qualified Code(s): R18.8 - Other ascites Subjective Principal diagnosis: pleural effusion Interval history: no acute events overnight. Patient is s/p parenthesis, denies any acute distress. Bed sound evaluation Objective PUL Vital signs: Last Vital Signs Temp 98.7 F 06/24/18 07:31 Pulse 62 06/24/18 07:31 Resp 18 06/24/18 07:31 BP 107/45 06/24/18 07:31 Pulse Ox 100 06/24/18 07:31 Results - Laboratory Findings CBC and BMP: 06/24/18 04:27 06/24/18 04:27 ABG ABG pH 7.29 pH Units (7.32-7.45) L 06/23/18 11:43 ABG pCO2 100 mmHg (35-45) H* D 06/23/18 11:43 ABG pO2 91 mmHg (85-104) 06/23/18 11:43 ABG O2 Saturation 95 % (95-98) 06/23/18 11:43 PT/INR, D-dimer PT 11.9 Seconds (9.4-12.1) 06/23/18 08:14 Abnormal lab findings: Abnormal lab results WBC 3.5 K/mcL (4.3-11.1) L 06/24/18 04:27 RBC 2.26 M/mcL (4.19-5.50) L 06/24/18 04:27 Hgb 6.8 g/dL (12.9-16.9) L D 06/24/18 04:27 Hct 22.5 % (37.5-50.1) L 06/24/18 04:27 MCHC 30.2 g/dL (31.6-35.5) L 06/24/18 04:27 RDW 16.1 % (11.5-14.5) H 06/24/18 04:27 Plt Count 43 K/mcL (140-400) L 06/24/18 04:27 Neutrophils # 1.3 K/mcL (1.6-8.9) L 06/24/18 04:27 Nucleated RBCs/100 WBC 0.4 /100 WBC (0) H 06/23/18 08:14 Immature Plt Fraction 7.9 % (1.1-6.1) H 06/24/18 04:27 ABG pH 7.29 pH Units (7.32-7.45) L 06/23/18 11:43 ABG pCO2 100 mmHg (35-45) H* D 06/23/18 11:43 ABG HCO3 48 mEq/L (21-27) H 06/23/18 11:43 ABG Total CO2 51 mEq/L (20-26) H 06/23/18 11:43 ABG Base Excess 19 mEq/L (-2 to 3) H 06/23/18 11:43 Chloride 91 mEq/L (98-107) L 06/24/18 04:27 Carbon Dioxide > 45 mEq/L (23-29) H* 06/24/18 04:27 Glucose 106 mg/dL (70-105) H 06/24/18 04:27 POC Glucose 112 mg/dL (70-99) H 06/24/18 05:35 Phosphorus 2.2 mg/dL (2.7-4.5) L 06/24/18 04:27 Iron 53 mcg/dL (65-175) L 06/23/18 14:22 % Saturation 14 % (20-55) L 06/23/18 14:22 Total Bilirubin 2.2 mg/dL (0.3-1.0) H 06/24/18 04:27 AST 10 Units/L (13-39) L 06/24/18 04:27 Ammonia 73 mcmol/L (16-53) H 06/23/18 08:14 B-Natriuretic Peptide 134 pg/mL (Less than 100) H 06/23/18 08:14 Serum Total Protein 4.8 g/dL (6.4-8.9) L 06/24/18 04:27 Globulin 1.1 g/dL (2.4-3.5) L 06/24/18 04:27 Albumin/Globulin Ratio 3.4 (1.1-2.2) H 06/24/18 04:27 Peritoneal RBC 0.014 M/mcL (0.000-0.002) H 06/23/18 13:00 Periton Tot Nuc Cells 302 TNC/mcL (0-300) H 06/23/18 13:00 - Clinical Findings Intake & Output: Intake & Output 06/23/18 06/24/18 06/24/18 23:59 07:59 15:59 Intake Total 200 / 200 100 / 100 Output Total 200 / 200 Balance 0 / 0 100 / 100 Weight 122.4 kg Consult Discharge Plan - Plan Referrals: Derick Ellis DO [Primary Care Provider] - <Jose Juan Kumar - Last Filed: 06/24/18 17:28> Date of Encounter: 06/24/18 Objective PUL Vital signs: Last Vital Signs Temp 98.1 F 06/24/18 15:54 Pulse 66 06/24/18 15:54 Resp 16 06/24/18 15:54 BP 101/61 06/24/18 15:54 Pulse Ox 93 06/24/18 15:54 Results - Laboratory Findings CBC and BMP: 06/24/18 04:27 06/24/18 04:27 ABG ABG pH 7.29 pH Units (7.32-7.45) L 06/23/18 11:43 ABG pCO2 100 mmHg (35-45) H* D 06/23/18 11:43 ABG pO2 91 mmHg (85-104) 06/23/18 11:43 ABG O2 Saturation 95 % (95-98) 06/23/18 11:43 PT/INR, D-dimer PT 13.2 Seconds (9.4-12.1) H 06/24/18 13:06 Abnormal lab findings: Abnormal lab results WBC 3.5 K/mcL (4.3-11.1) L 06/24/18 04:27 RBC 2.26 M/mcL (4.19-5.50) L 06/24/18 04:27 Hgb 6.8 g/dL (12.9-16.9) L D 06/24/18 04:27 Hct 22.5 % (37.5-50.1) L 06/24/18 04:27 MCHC 30.2 g/dL (31.6-35.5) L 06/24/18 04:27 RDW 16.1 % (11.5-14.5) H 06/24/18 04:27 Plt Count 43 K/mcL (140-400) L 06/24/18 04:27 Neutrophils # 1.3 K/mcL (1.6-8.9) L 06/24/18 04:27 Nucleated RBCs/100 WBC 0.4 /100 WBC (0) H 06/23/18 08:14 Immature Plt Fraction 7.9 % (1.1-6.1) H 06/24/18 04:27 PT 13.2 Seconds (9.4-12.1) H 06/24/18 13:06 ABG pH 7.29 pH Units (7.32-7.45) L 06/23/18 11:43 ABG pCO2 100 mmHg (35-45) H* D 06/23/18 11:43 ABG HCO3 48 mEq/L (21-27) H 06/23/18 11:43 ABG Total CO2 51 mEq/L (20-26) H 06/23/18 11:43 ABG Base Excess 19 mEq/L (-2 to 3) H 06/23/18 11:43 Chloride 91 mEq/L (98-107) L 06/24/18 04:27 Carbon Dioxide > 45 mEq/L (23-29) H* 06/24/18 04:27 Glucose 106 mg/dL (70-105) H 06/24/18 04:27 POC Glucose 112 mg/dL (70-99) H 06/24/18 05:35 Phosphorus 2.2 mg/dL (2.7-4.5) L 06/24/18 04:27 Iron 53 mcg/dL (65-175) L 06/23/18 14:22 % Saturation 14 % (20-55) L 06/23/18 14:22 Total Bilirubin 2.2 mg/dL (0.3-1.0) H 06/24/18 04:27 AST 10 Units/L (13-39) L 06/24/18 04:27 Ammonia 73 mcmol/L (16-53) H 06/23/18 08:14 B-Natriuretic Peptide 134 pg/mL (Less than 100) H 06/23/18 08:14 Serum Total Protein 4.8 g/dL (6.4-8.9) L 06/24/18 04:27 Globulin 1.1 g/dL (2.4-3.5) L 06/24/18 04:27 Albumin/Globulin Ratio 3.4 (1.1-2.2) H 06/24/18 04:27 Peritoneal RBC 0.014 M/mcL (0.000-0.002) H 06/23/18 13:00 Periton Tot Nuc Cells 302 TNC/mcL (0-300) H 06/23/18 13:00 - Clinical Findings Intake & Output: Intake & Output 09/27/18 09/27/18 09/27/18 07:59 15:59 23:59 Intake Total 100 / 100 915 / 915 305 / 305 Output Total 300 / 300 600 / 600 Balance 100 / 100 615 / 615 -295 / -295 Weight 122.4 kg - Attending Attestation I saw and evaluated this patient and my medical decision-making was reviewed with the Resident Physician. I agree with the documented findings, disposition and treatment plan as described except to the extent set forth below. We independently had [id number] contact with the patient Patient seen and examined at bedside Labs, radiology, chart personally reviewed. Acute on chronic hypoxic hypercapnic respiratory failure most likely due to fluid for overload due to underlying CHF and cirrhosis the left-sided pleural effusion is [id number] pleural effusion no safe pocket to drain and ultrasound of the lung shows LUNG ROCKET sign which is sign of pulmonary edema will need more diuresis as long as the hemodynamics and kidney function tolerates. To continue BiPAP overnight we will transition to valdo high flow in the morning we will repeat an ABG in the morning.
[2018-06-24 13:34] LABS: INR 1.2; Prothrombin Time 13.2 Seconds (9.4-12.1)
--- NOTE | 2018-06-24 14:16 | Internal Med Progress Note ---
Hospitalist Progress Note - Encounter Date of Encounter: 06/24/18 Time of Encounter: 11:00 - Subjective Interval History: H&P reviewed. Patient with history of cirrhosis, CLL, COPD, morbid obesity, who was recently admitted for pleural effusion and ascites s/p drainage, is admitted for acute on chronic hypercarbic respiratory failure secondary to tense ascites causing hypoventilation and recurrent pleural effusion. Underwent paracentesis yesterday draining 7L and was placed on BiPaP with significant improvement in his symptoms. States compliance to all his diuretic regimen. He also endorses taking lactulose regularly and having 3-4 bowel movements every day. Denies fever/chills/recent sick contact. - Exam Vitals: Temp Pulse Resp BP Pulse Ox 98.6 F 70 16 100/47 98 06/24/18 13:50 06/24/18 13:50 06/24/18 13:50 06/24/18 13:50 06/24/18 13:50 Exam: Constitutional: Obese male, not in acute distress HEENT: NCAT, EOMI Neck: supple, unable to appreciate JVD Cardio: distant heart sound, regular rate and rhythm Resp: Decreased breath sounds especially on the left side Abd: Distended but soft, non tender. No rigidity/guarding Extremities: Trace edema in lower extremities Neuro: Alert and oriented 3, no focal deficits, no asterixis - Assessment and Plan (1) Acute on chronic respiratory failure with hypoxia and hypercapnia Current Visit: Yes Status: Acute Assessment and Plan: Patient with acute on chronic hypoxic and hypercapnic respiratory failure. Likely secondary to recurrent pleural effusion and tense ascites causing hypoventilation improved with BiPaP and paracentesis draining 7L of ascites appreciate pulmonary input personally spoke to Dr. Kumar, does not appear to need any thoracentesis based on bedside US and recommended diuresis on PO lasix 40mg BID at home, will change to IV PRN BiPaP (2) Encephalopathy Current Visit: Yes Status: Acute Assessment and Plan: Secondary to severe hypercapnia, less likely to be due to hepatic encephalopathy (despite ammonia elevated) as he improved without having frequent BM overnight PRN BiPAP, diuresis as above to avoid alveolar hypoventilation continue home dose of lactulose, ensure daily BM discussed with GI over the phone -> TIPS does not need to be done urgently and he can see them as an outpatient to set up for interval paracentesis (3) Ascites Current Visit: Yes Status: Acute Assessment and Plan: paracentesis yesterday, 7L drained, given albumin post-procedure no signs and symptoms of SBP will require periodic paracentesis, to be organized as an outpatient with GI (4) Pleural effusion Current Visit: Yes Status: Acute Assessment and Plan: Moderate to large left-sided pleural effusion that is recurrent bedside US by pulmonary today did not show any drainable amount of pleural fluid recommend diuresis, change lasix to IV follow with pulm (5) CLL (chronic lymphocytic leukemia) Current Visit: Yes Status: Acute Assessment and Plan: -outpt oncology f/u -on chemo currently (6) Thrombocytopenia Current Visit: Yes Status: Acute Assessment and Plan: -Chronic; likely due to cirrhosis and CLL with chemotherapy No evidence of bleeding, monitor (7) Anemia Current Visit: Yes Status: Acute Assessment and Plan: Macrocytic anemia, slightly decreased to 6.8 transfuse pRBC, repeat CBC tomorrow FOBT (8) DVT prophylaxis Current Visit: Yes Status: Acute Assessment and Plan: SCD until FOBT is done and negative - Time Spent with Patient Total time spent is greater than 50% in coordination of care (as documented) at patient's floor/unit and/or counseling patient: Greater than 35 minutes Plan of Care Discussed with: patient Internal Medicine: Result - Labs CBC & Chem 7: 06/24/18 04:27 06/24/18 04:27 Labs: Short CBC 06/24/18 Range/Units 04:27 WBC 3.5 L (4.3-11.1) K/mcL Hgb 6.8 L D (12.9-16.9) g/dL Hct 22.5 L (37.5-50.1) % Plt Count 43 L (140-400) K/mcL Neutrophils # 1.3 L (1.6-8.9) K/mcL BMP 06/24/18 04:27 Sodium 143 Potassium 3.5 Chloride 91 L Carbon Dioxide > 45 H* BUN 16 Creatinine 0.89 Glucose 106 H Calcium 9.3 Liver Function 06/23/18 06/24/18 Range/Units 14:22 04:27 Total Bilirubin 2.2 H (0.3-1.0) mg/dL AST 10 L (13-39) Units/L ALT 7 (7-52) Units/L Alkaline Phosphatase 59 (34-104) Units/L Albumin 3.7 3.7 (3.5-5.7) g/dL - ABG Interpretation ABG results: ABG ABG pH 7.29 pH Units (7.32-7.45) L 06/23/18 11:43 ABG pCO2 100 mmHg (35-45) H* D 06/23/18 11:43 ABG pO2 91 mmHg (85-104) 06/23/18 11:43 ABG O2 Saturation 95 % (95-98) 06/23/18 11:43 PT/INR, D-dimer PT 13.2 Seconds (9.4-12.1) H 06/24/18 13:06 - Impressions Impressions Paracentesis Ultrasound 06/23/18 12:17 IMPRESSION: 1. Successful ultrasound guided paracentesis. D/ / Abrahan Boyle MD / Abrahan Boyle MD Interpreting Provider: Abrahan Boyle MD Chest X-Ray 06/24/18 07:00 IMPRESSION: Interval worsening in pulmonary edema, with interval worsening in extensive left lung pulmonary opacities and at least moderate left pleural effusion. Recommend radiographic follow-up to complete resolution. Persistently enlarged obscured cardiomediastinal silhouette. D/ / 06/24/2018 08:07:37 Marcelino Meredith MD / [facility] Interpreting Provider: Marcelino Meredith MD Consult Discharge Plan - Plan Referrals: Derick Ellis DO [Primary Care Provider] - (3) Ascites Qualifiers: Ascites type: other type Qualified Code(s): R18.8 - Other ascites (7) Anemia Qualifiers: Anemia type: unspecified type Qualified Code(s): D64.9 - Anemia, unspecified
[2018-06-24] MEDS: Furosemide 40 MG/4 ML VIAL IVP SCH (16:30)
[2018-06-24] MEDS: ALPRAZolam 1 MG TABLET PO PRN (20:32)
--- NOTE | 2018-06-25 00:43 | Electrocardiograph Report ---
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
[2018-06-25 04:13] LABS: Hematocrit 27.8 % (37.5-50.1); Hemoglobin 8.4 g/dL (12.9-16.9); Immature Platelets 7.4 % (1.1-6.1); Mean Corpuscular HGB Conc 30.2 g/dL (31.6-35.5); Mean Corpuscular Hemoglobin 29.5 pg (28.0-33.3); Mean Corpuscular Volume 97.5 fL (83.0-100.0); Mean Platelet Volume 10.8 fL (9.4-12.4); Red Blood Count 2.85 M/mcL (4.19-5.50)
[2018-06-25 04:17] LABS: INR 1.2; Prothrombin Time 13.2 Seconds (9.4-12.1)
[2018-06-25 04:22] LABS: ABG Base Excess 25 mEq/L (-2 to 3); ABG HCO3 51 mEq/L (21-27); ABG Oxygen Saturation 98 % (95-98); ABG PCO2 64 mmHg (35-45); ABG PO2 94 mmHg (85-104); ABG TCO2 53 mEq/L (20-26); Blood Gas PEEP 8 cm H2O
[2018-06-25 04:35] LABS: Alanine Aminotransferase 6 Units/L (7-52); Albumin 3.4 g/dL (3.5-5.7); Albumin/Globulin Ratio 2.4 (1.1-2.2); Alkaline Phosphatase 55 Units/L (34-104); Aspartate Amino Transferase 11 Units/L (13-39); BUN/Creatinine Ratio 15 (6-26); Bilirubin,Total 2.7 mg/dL (0.3-1.0); Blood Urea Nitrogen 15 mg/dL (6-20); Calcium 9.3 mg/dL (8.6-10.3); Carbon Dioxide > 45 mEq/L (23-29); Chloride 94 mEq/L (98-107); Globulin 1.4 g/dL (2.4-3.5); Glucose 88 mg/dL (70-105); Osmolality,Calculated 298 (280-300); Sodium 144 mEq/L (136-145); Total Protein 4.8 g/dL (6.4-8.9); eGFR For Non-African Americans > 60 (> 60)
[2018-06-25] MEDS: Sucralfate 1 GM TABLET PO SCH ×3 (06:32→16:04)
[2018-06-25] MEDS: Furosemide 40 MG/4 ML VIAL IVP SCH ×2 (08:52→16:04)
[2018-06-25] MEDS: Gabapentin 300 MG CAPSULE PO SCH ×2 (08:55→21:03)
[2018-06-25] MEDS: Lactulose Oral Soln 20 GM/30 ML UDC PO SCH ×3 (08:55→21:03)
--- NOTE | 2018-06-25 09:30 | Pulmonology Progress Note ---
<Jose Juan Kumar S - Last Filed: 06/25/18 15:39> Date of Encounter: 06/25/18 Objective PUL Vital signs: Last Vital Signs Temp 98.0 F 06/25/18 03:40 Pulse 58 06/25/18 03:40 Resp 12 06/25/18 04:07 BP 98/67 06/25/18 03:40 Pulse Ox 98 06/25/18 04:07 Results - Laboratory Findings CBC and BMP: 06/25/18 03:38 06/25/18 03:38 ABG ABG pH 7.50 pH Units (7.32-7.45) H 06/25/18 04:15 ABG pCO2 64 mmHg (35-45) H 06/25/18 04:15 ABG pO2 94 mmHg (85-104) 06/25/18 04:15 ABG O2 Saturation 98 % (95-98) 06/25/18 04:15 PT/INR, D-dimer PT 13.2 Seconds (9.4-12.1) H 06/25/18 03:38 Abnormal lab findings: Abnormal lab results WBC 3.9 K/mcL (4.3-11.1) L 06/25/18 03:38 RBC 2.85 M/mcL (4.19-5.50) L 06/25/18 03:38 Hgb 8.4 g/dL (12.9-16.9) L D 06/25/18 03:38 Hct 27.8 % (37.5-50.1) L 06/25/18 03:38 MCHC 30.2 g/dL (31.6-35.5) L 06/25/18 03:38 RDW 17.0 % (11.5-14.5) H 06/25/18 03:38 Plt Count 39 K/mcL (140-400) L 06/25/18 03:38 Neutrophils # 1.3 K/mcL (1.6-8.9) L 06/24/18 04:27 Nucleated RBCs/100 WBC 0.4 /100 WBC (0) H 06/23/18 08:14 Immature Plt Fraction 7.4 % (1.1-6.1) H 06/25/18 03:38 PT 13.2 Seconds (9.4-12.1) H 06/25/18 03:38 ABG pH 7.50 pH Units (7.32-7.45) H 06/25/18 04:15 ABG pCO2 64 mmHg (35-45) H 06/25/18 04:15 ABG HCO3 51 mEq/L (21-27) H 06/25/18 04:15 ABG Total CO2 53 mEq/L (20-26) H 06/25/18 04:15 ABG Base Excess 25 mEq/L (-2 to 3) H 06/25/18 04:15 Potassium 3.0 mEq/L (3.5-5.1) L 06/25/18 03:38 Chloride 94 mEq/L (98-107) L 06/25/18 03:38 Carbon Dioxide > 45 mEq/L (23-29) H* 06/25/18 03:38 Phosphorus 2.0 mg/dL (2.7-4.5) L 06/25/18 03:38 Iron 53 mcg/dL (65-175) L 06/23/18 14:22 % Saturation 14 % (20-55) L 06/23/18 14:22 Total Bilirubin 2.7 mg/dL (0.3-1.0) H 06/25/18 03:38 AST 11 Units/L (13-39) L 06/25/18 03:38 ALT 6 Units/L (7-52) L 06/25/18 03:38 Ammonia 73 mcmol/L (16-53) H 06/23/18 08:14 B-Natriuretic Peptide 134 pg/mL (Less than 100) H 06/23/18 08:14 Serum Total Protein 4.8 g/dL (6.4-8.9) L 06/25/18 03:38 Albumin 3.4 g/dL (3.5-5.7) L 06/25/18 03:38 Globulin 1.4 g/dL (2.4-3.5) L 06/25/18 03:38 Albumin/Globulin Ratio 2.4 (1.1-2.2) H 06/25/18 03:38 Peritoneal RBC 0.014 M/mcL (0.000-0.002) H 06/23/18 13:00 Periton Tot Nuc Cells 302 TNC/mcL (0-300) H 06/23/18 13:00 - Clinical Findings Intake & Output: Intake & Output 06/24/18 06/25/18 06/25/18 23:59 07:59 15:59 Intake Total 365 / 365 Output Total 600 / 600 Balance -235 / -235 Weight 121.2 kg Consult Discharge Plan - Plan Referrals: Derick Ellis DO [Primary Care Provider] - - Attending Attestation I saw and evaluated this patient and my medical decision-making was reviewed with the Resident Physician. I agree with the documented findings, disposition and treatment plan as described except to the extent set forth below. We independently had [id number] contact with the patient Patient seen and examined at bedside Labs, radiology, chart personally reviewed. Patient with acute on chronic hypoxic hypercapnic respiratory failure secondary to fluid overload state complicated by CHF and cirrhosis sinusitis with some hepatic hydrothorax patient will need more diuresis was not enough safe pocket to drain the pleural fluid on the left side. Patient will benefit from high flow nasal cannula. The meantime to continue the current BiPAP settings. Patient has metabolic alkalosis complicated by post hypercapniaSoma doing repeat ABG in the morning will try to give him breaks from BiPAP and put him on high flow nasal cannula. The plan was discussed with the nurse in charge of the patient.. Pulmonary we will continue to follow. <Mickey Good - Last Filed: 06/25/18 17:54> Date of Encounter: 06/25/18 Time of Encounter: 08:00 Assessment and Plan (1) Acute on chronic respiratory failure with hypoxia and hypercapnia Current Visit: Yes Status: Acute Secondary to his history of COPD and diastolic CHF, - Patient's ABG during admission showed primary respiratory acidosis chronic with secondary metabolic alkalosis (pH 7.29, pCO2: 100 HCO3: 48). Repeat ABG showed primary metabolic alkalosis and superimposed respiratory acidosis (pH 7.5 ,PCO2: 64, HCO3: 51) - Currently on acetazolamide TID for facilitating secretion of bicarbonate - On physical exam diminished breath sounds bilaterally appreciated, no crackles. - Currently on BiPAP satting at 93% with FiO2 :40%, continue to monitor, duonebs PRN. (2) Pleural effusion Current Visit: Yes Status: Acute - Likely multifactorial. It could be hepatic hydrothorax secondary to his history of chronic cirrhosis(MELD score 11) , or it could also be secondary to his diastolic CHF. (last Echo 50%) , or due to CLL -On bed sounds US yesterday there was evidence of Lung Rockets suggestive of pulmonary edema - Has a history of recurrent pleural effusion with the last admission being a loculated pleural effusion and had a chest tube placement. - With his multiple admissions for pleural effusion and ascites, it is likely that cirrhosis is playing a significant role in development of these pathologies and patient would highly benefit from a TIPS procedure. Patient might need thoracentesis if the effusion become larger and patient doesn't appear to be clinically stable. (3) Ascites Current Visit: Yes Status: Chronic - Likely secondary to his history of cirrhosis. (INR 1.2, Platelets : 39, MELD: 12, ammonia: 73 (during admssion)) -Patient is currently day 2 s/p paracentesis, drained 7L fluid . No signs of SBP. He has paracentesis about a month ago for the same condition, his lasix dose was increased that time. - Continue on 20 mg PO TID lactulose. -Per the GI patient does not need any emergent TIPS procedure and has been advised to see GI as an outpatient for interval paracentesis.. Qualifiers: Ascites type: other type Qualified Code(s): R18.8 - Other ascites Subjective Principal diagnosis: pleural effusion Interval history: no acute events overnight. Patient is day 2 s/p parenthesis, denies any acute distress. On physical exam, patient denies any worsening SOB, chest pain or palpitation. Becasue of his hypercarbia and metabolic alkalosis, we started him on acetazolamide TID with a repeat ABG in 24 hrs. Objective PUL Vital signs: Last Vital Signs Temp 98.0 F 06/25/18 03:40 Pulse 58 06/25/18 03:40 Resp 12 06/25/18 04:07 BP 98/67 06/25/18 03:40 Pulse Ox 98 06/25/18 04:07 General appearance: no acute distress (A&O *3, good mentation) Effort: normal Auscultation: bilateral: diminished breath sounds Cardiovascular: regular rate and rhythm Gastrointestinal: soft, non-tender, non-distended Results - Laboratory Findings CBC and BMP: 06/25/18 03:38 06/25/18 03:38 ABG ABG pH 7.50 pH Units (7.32-7.45) H 06/25/18 04:15 ABG pCO2 64 mmHg (35-45) H 06/25/18 04:15 ABG pO2 94 mmHg (85-104) 06/25/18 04:15 ABG O2 Saturation 98 % (95-98) 06/25/18 04:15 PT/INR, D-dimer PT 13.2 Seconds (9.4-12.1) H 06/25/18 03:38 Abnormal lab findings: Abnormal lab results WBC 3.9 K/mcL (4.3-11.1) L 06/25/18 03:38 RBC 2.85 M/mcL (4.19-5.50) L 06/25/18 03:38 Hgb 8.4 g/dL (12.9-16.9) L D 06/25/18 03:38 Hct 27.8 % (37.5-50.1) L 06/25/18 03:38 MCHC 30.2 g/dL (31.6-35.5) L 06/25/18 03:38 RDW 17.0 % (11.5-14.5) H 06/25/18 03:38 Plt Count 39 K/mcL (140-400) L 06/25/18 03:38 Neutrophils # 1.3 K/mcL (1.6-8.9) L 06/24/18 04:27 Nucleated RBCs/100 WBC 0.4 /100 WBC (0) H 06/23/18 08:14 Immature Plt Fraction 7.4 % (1.1-6.1) H 06/25/18 03:38 PT 13.2 Seconds (9.4-12.1) H 06/25/18 03:38 ABG pH 7.50 pH Units (7.32-7.45) H 06/25/18 04:15 ABG pCO2 64 mmHg (35-45) H 06/25/18 04:15 ABG HCO3 51 mEq/L (21-27) H 06/25/18 04:15 ABG Total CO2 53 mEq/L (20-26) H 06/25/18 04:15 ABG Base Excess 25 mEq/L (-2 to 3) H 06/25/18 04:15 Potassium 3.0 mEq/L (3.5-5.1) L 06/25/18 03:38 Chloride 94 mEq/L (98-107) L 06/25/18 03:38 Carbon Dioxide > 45 mEq/L (23-29) H* 06/25/18 03:38 Phosphorus 2.2 mg/dL (2.7-4.5) L 06/24/18 04:27 Iron 53 mcg/dL (65-175) L 06/23/18 14:22 % Saturation 14 % (20-55) L 06/23/18 14:22 Total Bilirubin 2.7 mg/dL (0.3-1.0) H 06/25/18 03:38 AST 11 Units/L (13-39) L 06/25/18 03:38 ALT 6 Units/L (7-52) L 06/25/18 03:38 Ammonia 73 mcmol/L (16-53) H 06/23/18 08:14 B-Natriuretic Peptide 134 pg/mL (Less than 100) H 06/23/18 08:14 Serum Total Protein 4.8 g/dL (6.4-8.9) L 06/25/18 03:38 Albumin 3.4 g/dL (3.5-5.7) L 06/25/18 03:38 Globulin 1.4 g/dL (2.4-3.5) L 06/25/18 03:38 Albumin/Globulin Ratio 2.4 (1.1-2.2) H 06/25/18 03:38 Peritoneal RBC 0.014 M/mcL (0.000-0.002) H 06/23/18 13:00 Periton Tot Nuc Cells 302 TNC/mcL (0-300) H 06/23/18 13:00 - Clinical Findings Intake & Output: Intake & Output 06/24/18 06/25/18 06/25/18 23:59 07:59 15:59 Intake Total 365 / 365 Output Total 600 / 600 Balance -235 / -235 Weight 121.2 kg
--- NOTE | 2018-06-25 10:45 | Internal Med Progress Note ---
Hospitalist Progress Note - Encounter Date of Encounter: 06/25/18 Time of Encounter: 10:45 - Subjective Interval History: 58 year old male with history of cirrhosis, CLL, COPD, morbid obesity, who was recently admitted for pleural effusion and ascites s/p drainage, is admitted for acute on chronic hypercarbic respiratory failure secondary to tense ascites causing hypoventilation and recurrent pleural effusion/pulmonary edema. Underwent paracentesis 06/24 draining 7L and was placed on BiPaP with significant improvement in his symptoms. Pulmonary did bedside ultrasound to see whether pleural effusion can be tapped but he felt that it was more consistent with pulmonary edema and we started diuresing with IV Lasix. I called GI over the phone to curbside and did not recommend TIPS to be done now but rather schedule for periodic scheduled paracentesis. His Hb dropped to 6.8 s /p RBCs, now improved, FOBT pending. Seen and examined at the bedside with partner. Reports some improvement in JEANNE Bleeding from the nostril due to NC Otherwise denies any complain, stool is brown i/o -3.6L - Exam Vitals: Temp Pulse Resp BP Pulse Ox 98.0 F 58 12 98/67 98 06/25/18 03:40 06/25/18 03:40 06/25/18 04:07 06/25/18 03:40 06/25/18 04:07 Exam: Constitutional: Obese male, not in acute distress HEENT: NCAT, EOMI Neck: supple, unable to appreciate JVD Cardio: distant heart sound, regular rate and rhythm Resp: Decreased breath sounds especially on the left side Abd: Distended but soft, non tender. No rigidity/guarding Extremities: Trace edema in lower extremities Neuro: Alert and oriented 3, no focal deficits, no asterixis - Assessment and Plan (1) Acute on chronic respiratory failure with hypoxia and hypercapnia Current Visit: Yes Status: Acute Assessment and Plan: Patient with acute on chronic hypoxic and hypercapnic respiratory failure. Likely secondary to recurrent pleural effusion and tense ascites causing hypoventilation improved with BiPaP and paracentesis draining 7L of ascites, fluid work up pending Pulmonology following and after having done a bedside USS 06/24 recommended diuresis Patient is on IV lasix BID with good urine output, continue same (2) Encephalopathy Current Visit: Yes Status: Resolved Assessment and Plan: Secondary to severe hypercapnia, less likely to be due to hepatic encephalopathy (despite ammonia elevated) as he improved without having frequent BM overnight PRN BiPAP, diuresis as above to avoid alveolar hypoventilation continue home dose of lactulose, ensure daily BM Dr. Amos previous hospitalist had discussed patient with GI over the phone -> TIPS does not need to be done urgently and he can see them as an outpatient to set up for interval paracentesis (3) Pleural effusion Current Visit: Yes Status: Suspected Assessment and Plan: Moderate to large left-sided pleural effusion that is recurrent bedside US by pulmonary 06/24 did not show any drainable amount of pleural fluid Continue diuresis Pulm following (4) Ascites Current Visit: Yes Status: Acute Assessment and Plan: paracentesis 06/23 7L drained, given albumin post-procedure no signs and symptoms of SBP will require periodic paracentesis, to be organized as an outpatient with GI (5) CLL (chronic lymphocytic leukemia) Current Visit: Yes Status: Chronic Assessment and Plan: -outpt oncology f/u -on chemo currently (6) Thrombocytopenia Current Visit: Yes Status: Chronic Assessment and Plan: -Chronic; likely due to cirrhosis and CLL with chemotherapy No evidence of bleeding, monitor (7) Anemia Current Visit: Yes Status: Acute Assessment and Plan: Macrocytic anemia, with acute on chronic loss FOBT pending Hb now at 8.4 s/p 2 units rbcs, continue to monitor (8) DVT prophylaxis Current Visit: Yes Status: Acute Assessment and Plan: SCD until FOBT is done and negative - Time Spent with Patient Total time spent is greater than 50% in coordination of care (as documented) at patient's floor/unit and/or counseling patient: Plan of Care Discussed with: patient Internal Medicine: Result - Labs CBC & Chem 7: 06/25/18 03:38 06/25/18 03:38 Labs: Short CBC 06/25/18 Range/Units 03:38 WBC 3.9 L (4.3-11.1) K/mcL Hgb 8.4 L D (12.9-16.9) g/dL Hct 27.8 L (37.5-50.1) % Plt Count 39 L (140-400) K/mcL BMP 06/25/18 03:38 Sodium 144 Potassium 3.0 L Chloride 94 L Carbon Dioxide > 45 H* BUN 15 Creatinine 0.98 Glucose 88 Calcium 9.3 Liver Function 06/25/18 Range/Units 03:38 Total Bilirubin 2.7 H (0.3-1.0) mg/dL AST 11 L (13-39) Units/L ALT 6 L (7-52) Units/L Alkaline Phosphatase 55 (34-104) Units/L Albumin 3.4 L (3.5-5.7) g/dL - ABG Interpretation ABG results: ABG ABG pH 7.50 pH Units (7.32-7.45) H 06/25/18 04:15 ABG pCO2 64 mmHg (35-45) H 06/25/18 04:15 ABG pO2 94 mmHg (85-104) 06/25/18 04:15 ABG O2 Saturation 98 % (95-98) 06/25/18 04:15 PT/INR, D-dimer PT 13.2 Seconds (9.4-12.1) H 06/25/18 03:38 Consult Discharge Plan - Plan Referrals: Derick Ellis DO [Primary Care Provider] - (4) Ascites Qualifiers: Ascites type: other type Qualified Code(s): R18.8 - Other ascites (7) Anemia Qualifiers: Anemia type: unspecified type Qualified Code(s): D64.9 - Anemia, unspecified
[2018-06-25] MEDS: Insulin DETEMIR 100 UNIT/ML X5UNITS SQ SCH ×2 (14:01→21:04)
[2018-06-25] MEDS: Aspirin 81 MG TAB.CHEW PO SCH (14:02)
[2018-06-25 15:17] LABS: Magnesium 1.6 mg/dL (1.6-2.6)
[2018-06-25] MEDS: acetaZOLAMIDE 250 MG TABLET PO SCH ×2 (15:55→21:03)
[2018-06-25 19:21] LABS: Hematocrit RBC Folate 25.9 %
[2018-06-25] MEDS: ALPRAZolam 1 MG TABLET PO PRN (21:02)
[2018-06-26] MEDS: Sucralfate 1 GM TABLET PO SCH ×3 (05:54→15:34)
[2018-06-26 07:32] LABS: Basophils % 0.3 %
[2018-06-26 07:34] LABS: Eosinophils # 0.1 K/mcL (0.0-0.6); Eosinophils % 2.6 %; Hematocrit 28.5 % (37.5-50.1); Hemoglobin 8.8 g/dL (12.9-16.9); Immature Granulocytes % 1.3 % (0-4); Immature Platelets 8.1 % (1.1-6.1); Lymphocytes # 1.4 K/mcL (0.6-4.6); Lymphocytes % 46.4 %; Mean Corpuscular HGB Conc 30.9 g/dL (31.6-35.5); Mean Corpuscular Hemoglobin 30.2 pg (28.0-33.3); Mean Corpuscular Volume 97.9 fL (83.0-100.0); Mean Platelet Volume 10.8 fL (9.4-12.4); Monocytes # 0.2 K/mcL (0.0-1.3); Monocytes % 7.9 %; Neutrophils # 1.3 K/mcL (1.6-8.9); Nucleated Red Blood Cells 0.7 /100 WBC (0); Red Blood Count 2.91 M/mcL (4.19-5.50); Red Cell Distribution Width 16.2 % (11.5-14.5); Segmented Neutrophils % 41.5 %
[2018-06-26 08:24] LABS: Platelet Count 40 K/mcL (140-400)
[2018-06-26 08:44] LABS: BUN/Creatinine Ratio 12 (6-26); Blood Urea Nitrogen 12 mg/dL (6-20); Calcium 9.1 mg/dL (8.6-10.3); Carbon Dioxide 43 mEq/L (23-29); Chloride 93 mEq/L (98-107); Glucose 152 mg/dL (70-105); Osmolality,Calculated 293 (280-300); Potassium 3.2 mEq/L (3.5-5.1); Sodium 140 mEq/L (136-145); eGFR For Non-African Americans > 60 (> 60)
--- NOTE | 2018-06-26 08:57 | Pulmonology Consult Note ---
Date of Encounter: 06/26/18 Past Med Surg Social Fam HX - Past Medical History Medical history: cancer, cirrhosis, CHF, COPD, diabetes, GERD, hyperlipidemia, hypertension, kidney stones, myocardial infarction Additional medical history: morbid obesity with BMI of 45-49 adult. history of colon polyps. stomach polyp removed. esophageal varicies banded. chronic lymphatic leukemia Psychiatric history: depression - Past Surgical History Surgical History: LE stent(s) Additional surgical history: 3 cardiac stents. left knee. Hernia repair. Kidney stones. esophageal varicies. stomach polyp removed and clamp placed - Social History Smoking Status: Former smoker Smokeless Tobacco Status: No Alcohol use: none Drug use: none - Family History Mother Family Member Ethnicity: Non- Living Status: Hx Family Respiratory Disorders: Yes (COPD) Father Family Member Ethnicity: Non- Living Status: Hx Family Cancer: Yes (Small cell lung & Throat) Brother Family Member Ethnicity: Non- Living Status: Sister Family Member Ethnicity: Non- Living Status: Hx Family Respiratory Disorders: Yes (COPD) Medications and Allergies ALPRAZolam [Xanax 1 MG Tablet] 1 mg PO BID PRN 05/09/15 [History] Atorvastatin Calcium [Lipitor] 20 mg PO HS 05/09/15 [History] Metformin HCl [Glucophage] 1,000 mg PO BID 05/09/15 [History] Oxygen 3 l NS HS 03/26/16 [History] Spironolactone [Aldactone] 100 mg PO DAILY 03/26/16 [History] OxyCODONE/APAP 10/325 [Percocet 10/325 MG] 1 tab PO Q6H PRN 07/30/16 [History] Insulin Glargine,Hum.rec.anlog [Lantus Solostar] 50 unit SQ BID 12/24/16 [ History] Prochlorperazine Maleate [Compazine] 1 tab PO Q6HR PRN #30 tablet 05/07/17 [Rx] Gabapentin [Neurontin] 300 mg PO BID 07/15/17 [History] Levothyroxine [Synthroid] 88 mcg PO 0630 #30 tablet 11/23/17 [Rx] Sucralfate [Carafate] 1 gm PO TID 03/09/18 [History] Aspirin 81 mg PO AD 03/26/18 [History] Lactulose [Kristalose] 20 gm PO TID 03/26/18 [History] Pantoprazole Sodium [Protonix] 40 mg PO DAILY 03/26/18 [History] Metoprolol [Lopressor] 75 mg PO BID 05/01/18 [History] Nitroglycerin [Nitromist] 1 - 2 spr SL Q5M PRN 05/01/18 [History] Ibrutinib [Imbruvica] 420 mg PO DAILY #30 tablet 05/21/18 [Rx] Insulin Regular, Human [Novolin R] 0 unit SQ TIDWM PRN 05/24/18 [History] Furosemide [Lasix] 40 mg PO BIDDIURETIC #60 tablet 05/27/18 [Rx] 3 Allergy/AdvReac Type Severity Reaction Status Date / Time naproxen Allergy Mild Hives Verified 06/08/18 14:46 rituximab Allergy Mild Hives Verified 06/08/18 14:46 JUAN RAMON Inhibitors AdvReac Mild NECK PAIN Verified 06/08/18 14:46 cefdinir AdvReac Mild Dizziness Verified 06/08/18 14:46 hydrocodone AdvReac Mild Vomiting Verified 06/08/18 14:46 levofloxacin AdvReac Mild Dizziness Verified 06/08/18 14:46 ramipril [From Altace] AdvReac Mild NECK PAIN Verified 06/08/18 14:46 tramadol AdvReac Mild Nausea Verified 06/08/18 14:46 doxycycline AdvReac Vomiting Verified 06/08/18 14:46 All Systems: The remainder of the systems were reviewed and are negative Physical Examination Vital Signs: Vital Signs, Last 4 Hours Temp Pulse Resp BP Pulse Ox 06/26/18 07:26 97.0 F L 58 18 80/41 97 Results - Laboratory Findings CBC and BMP: 06/26/18 07:01 06/26/18 07:01 ABG ABG pH 7.50 pH Units (7.32-7.45) H 06/25/18 04:15 ABG pCO2 64 mmHg (35-45) H 06/25/18 04:15 ABG pO2 94 mmHg (85-104) 06/25/18 04:15 ABG O2 Saturation 98 % (95-98) 06/25/18 04:15 PT/INR, D-dimer PT 13.2 Seconds (9.4-12.1) H 06/25/18 03:38 Abnormal lab findings: Abnormal lab results WBC 3.0 K/mcL (4.3-11.1) L 06/26/18 07:01 RBC 2.91 M/mcL (4.19-5.50) L 06/26/18 07:01 Hgb 8.8 g/dL (12.9-16.9) L 06/26/18 07:01 Hct 28.5 % (37.5-50.1) L 06/26/18 07:01 MCHC 30.9 g/dL (31.6-35.5) L 06/26/18 07:01 RDW 16.2 % (11.5-14.5) H 06/26/18 07:01 Plt Count 40 K/mcL (140-400) L 06/26/18 07:01 Neutrophils # 1.3 K/mcL (1.6-8.9) L 06/26/18 07:01 Nucleated RBCs/100 WBC 0.7 /100 WBC (0) H 06/26/18 07:01 Immature Plt Fraction 8.1 % (1.1-6.1) H 06/26/18 07:01 PT 13.2 Seconds (9.4-12.1) H 06/25/18 03:38 ABG pH 7.50 pH Units (7.32-7.45) H 06/25/18 04:15 ABG pCO2 64 mmHg (35-45) H 06/25/18 04:15 ABG HCO3 51 mEq/L (21-27) H 06/25/18 04:15 ABG Total CO2 53 mEq/L (20-26) H 06/25/18 04:15 ABG Base Excess 25 mEq/L (-2 to 3) H 06/25/18 04:15 Potassium 3.2 mEq/L (3.5-5.1) L 06/26/18 07:01 Chloride 93 mEq/L (98-107) L 06/26/18 07:01 Carbon Dioxide 43 mEq/L (23-29) H* 06/26/18 07:01 Glucose 152 mg/dL (70-105) H 06/26/18 07:01 POC Glucose 159 mg/dL (70-99) H 06/26/18 05:42 Phosphorus 5.0 mg/dL (2.7-4.5) H 06/26/18 07:01 Iron 53 mcg/dL (65-175) L 06/23/18 14:22 % Saturation 14 % (20-55) L 06/23/18 14:22 Total Bilirubin 2.7 mg/dL (0.3-1.0) H 06/25/18 03:38 AST 11 Units/L (13-39) L 06/25/18 03:38 ALT 6 Units/L (7-52) L 06/25/18 03:38 Ammonia 73 mcmol/L (16-53) H 06/23/18 08:14 B-Natriuretic Peptide 134 pg/mL (Less than 100) H 06/23/18 08:14 Serum Total Protein 4.8 g/dL (6.4-8.9) L 06/25/18 03:38 Albumin 3.4 g/dL (3.5-5.7) L 06/25/18 03:38 Globulin 1.4 g/dL (2.4-3.5) L 06/25/18 03:38 Albumin/Globulin Ratio 2.4 (1.1-2.2) H 06/25/18 03:38 Peritoneal RBC 0.014 M/mcL (0.000-0.002) H 06/23/18 13:00 Periton Tot Nuc Cells 302 TNC/mcL (0-300) H 06/23/18 13:00 - Clinical Findings Intake & Output: Intake & Output 06/25/18 06/26/18 06/26/18 23:59 07:59 15:59 Intake Total 560 / 560 304 / 304 Output Total 875 / 875 Balance 560 / 560 -571 / -571 Weight 122 kg Consult Discharge Plan - Plan Referrals: Derick Ellis DO [Primary Care Provider] -
[2018-06-26] MEDS: Furosemide 40 MG/4 ML VIAL IVP SCH ×2 (09:11→17:28)
[2018-06-26] MEDS: Lactulose Oral Soln 20 GM/30 ML UDC PO SCH ×3 (09:11→20:54)
[2018-06-26] MEDS: Gabapentin 300 MG CAPSULE PO SCH ×2 (09:11→20:54)
[2018-06-26] MEDS: acetaZOLAMIDE 250 MG TABLET PO SCH (09:12)
[2018-06-26] MEDS: Insulin DETEMIR 100 UNIT/ML X5UNITS SQ SCH ×2 (09:50→20:54)
--- NOTE | 2018-06-26 09:58 | Internal Med Progress Note ---
Hospitalist Progress Note - Encounter Date of Encounter: 06/26/18 Time of Encounter: 10:10 - Subjective Interval History: No complaints, no events overnight. - Exam Vitals: Temp Pulse Resp BP Pulse Ox 97.0 F L 57 18 110/41 97 06/26/18 07:26 06/26/18 09:09 06/26/18 09:09 06/26/18 09:09 06/26/18 09:09 Exam: Constitutional: Obese male, not in acute distress HEENT: NCAT, EOMI Neck: supple, unable to appreciate JVD Cardio: RRR, distant heart sounds Resp: Decreased breath sounds bilaterally Abd: Distended but soft, non tender. No rigidity/guarding Extremities: Trace edema in lower extremities Neuro: Alert and oriented 3, no focal deficits, no asterixis - Assessment and Plan (1) Acute on chronic respiratory failure with hypoxia and hypercapnia Current Visit: Yes Status: Acute Assessment and Plan: Patient with acute on chronic hypoxic and hypercapnic respiratory failure. Likely secondary to recurrent pleural effusion and tense ascites causing hypoventilation improved with BiPaP and paracentesis draining 7L of ascites, fluid work up pending Pulmonology following and after having done a bedside USS 06/24 recommended diuresis Patient is on IV lasix BID with good urine output, continue same BP was low this AM, will monitor today and if remains low maybe hold a dose of Lasix or hold metoprolol. Will follow vitals closely and see (2) Encephalopathy Current Visit: Yes Status: Resolved Assessment and Plan: Secondary to severe hypercapnia, less likely to be due to hepatic encephalopathy (despite ammonia elevated) as he improved without having frequent BM overnight PRN BiPAP, diuresis as above to avoid alveolar hypoventilation continue home dose of lactulose, ensure daily BM Dr. Amos previous hospitalist had discussed patient with GI over the phone -> TIPS does not need to be done urgently and he can see them as an outpatient to set up for interval paracentesis (3) Pleural effusion Current Visit: Yes Status: Suspected Assessment and Plan: Moderate to large left-sided pleural effusion that is recurrent bedside US by pulmonary 06/24 did not show any drainable amount of pleural fluid Continue diuresis Pulm following (4) Ascites Current Visit: Yes Status: Acute Assessment and Plan: paracentesis 06/23 7L drained, given albumin post-procedure no signs and symptoms of SBP will require periodic paracentesis, to be organized as an outpatient with GI (5) CLL (chronic lymphocytic leukemia) Current Visit: Yes Status: Chronic Assessment and Plan: -outpt oncology f/u -on chemo currently (6) Thrombocytopenia Current Visit: Yes Status: Chronic Assessment and Plan: -Chronic; likely due to cirrhosis and CLL with chemotherapy No evidence of bleeding, monitor (7) Anemia Current Visit: Yes Status: Acute Assessment and Plan: Macrocytic anemia, with acute on chronic loss FOBT pending On 06/24 s/p 2 units rbcs, continue to monitor Hb now improved. (8) DVT prophylaxis Current Visit: Yes Status: Acute Assessment and Plan: SCD until FOBT is done and negative - Time Spent with Patient Total time spent is greater than 50% in coordination of care (as documented) at patient's floor/unit and/or counseling patient: Internal Medicine: Result - Labs CBC & Chem 7: 06/26/18 07:01 06/26/18 07:01 Labs: Short CBC 06/26/18 Range/Units 07:01 WBC 3.0 L (4.3-11.1) K/mcL Hgb 8.8 L (12.9-16.9) g/dL Hct 28.5 L (37.5-50.1) % Plt Count 40 L (140-400) K/mcL Neutrophils # 1.3 L (1.6-8.9) K/mcL BMP 06/25/18 06/26/18 03:38 07:01 Sodium 144 140 Potassium 3.0 L 3.2 L Chloride 94 L 93 L Carbon Dioxide > 45 H* 43 H* BUN 15 12 Creatinine 0.98 1.03 Glucose 88 152 H Calcium 9.3 9.1 Liver Function 06/25/18 Range/Units 03:38 Total Bilirubin 2.7 H (0.3-1.0) mg/dL AST 11 L (13-39) Units/L ALT 6 L (7-52) Units/L Alkaline Phosphatase 55 (34-104) Units/L Albumin 3.4 L (3.5-5.7) g/dL - ABG Interpretation ABG results: ABG ABG pH 7.50 pH Units (7.32-7.45) H 06/25/18 04:15 ABG pCO2 64 mmHg (35-45) H 06/25/18 04:15 ABG pO2 94 mmHg (85-104) 06/25/18 04:15 ABG O2 Saturation 98 % (95-98) 06/25/18 04:15 PT/INR, D-dimer PT 13.2 Seconds (9.4-12.1) H 06/25/18 03:38 - Impressions Impressions Chest X-Ray 06/24/18 07:00 IMPRESSION: 1. Interval worsening in pulmonary edema, with interval worsening in extensive left lung pulmonary opacities and at least moderate left pleural effusion. 2. Persistently enlarged obscured cardiomediastinal silhouette. RECOMMENDATION: Recommend radiographic follow-up to complete resolution. D/ / 06/24/2018 08:07:37 Marcelino Meredith MD / cristi Interpreting Provider: Marcelino Meredith MD Consult Discharge Plan - Plan Referrals: Derick Ellis DO [Primary Care Provider] - (4) Ascites Qualifiers: Ascites type: other type Qualified Code(s): R18.8 - Other ascites (7) Anemia Qualifiers: Anemia type: unspecified type Qualified Code(s): D64.9 - Anemia, unspecified
--- NOTE | 2018-06-26 11:38 | Pulmonology Progress Note ---
Date of Encounter: 06/26/18 Time of Encounter: 11:00 Assessment and Plan (1) Acute respiratory failure with hypoxia and hypercapnia Current Visit: No Status: Chronic Patient is feeling much better today and wean off FiO2 to keep SPO2 around 90% and his labs has improved slightly with the Diamox and will give him 1 more dose. Explained to patient main treatment would be focusing on his liver cirrhosis rather than pleural effusion. Continue noninvasive ventilation. Please call for any questions and patient currently follow-up in the office as scheduled or in 3-4 weeks. Subjective Principal diagnosis: pleural effusion Interval history: Patient is feeling much better today and denies any complaints. Objective PUL Vital signs: Last Vital Signs Temp 98.6 F 06/26/18 11:20 Pulse 71 06/26/18 11:20 Resp 18 06/26/18 11:20 BP 103/58 06/26/18 11:20 Pulse Ox 100 06/26/18 11:20 General: Patient is in no acute distress. HEENT: Normocephalic atraumatic, pupils are equal round and reactive to light and accommodation, anicteric sclera, nares is patent, mucous membranes moist, no JVD, trachea is midline Cardiovascular: Normal sinus rhythm, S1 and S2 audible, no murmur or rubs Respiratory: Clear to auscultation in the left side and diminished in the right base.. No acute distress. No wheezing. Patient not using accessory muscles. Abdomen: Soft, nontender, nondistended, positive bowel sounds in all 4 quadrants Extremities: Warm, dry, trace lower extremity edema. Normal capillary refill. Neuro: Alert and oriented and follows commands. Grossly no neuro deficits. Skin: Warm to touch : No obvious abnormalities. Psych: Normal Results - Laboratory Findings CBC and BMP: 06/26/18 07:01 06/26/18 07:01 ABG ABG pH 7.50 pH Units (7.32-7.45) H 06/25/18 04:15 ABG pCO2 64 mmHg (35-45) H 06/25/18 04:15 ABG pO2 94 mmHg (85-104) 06/25/18 04:15 ABG O2 Saturation 98 % (95-98) 06/25/18 04:15 PT/INR, D-dimer PT 13.2 Seconds (9.4-12.1) H 06/25/18 03:38 Abnormal lab findings: Abnormal lab results WBC 3.0 K/mcL (4.3-11.1) L 06/26/18 07:01 RBC 2.91 M/mcL (4.19-5.50) L 06/26/18 07:01 Hgb 8.8 g/dL (12.9-16.9) L 06/26/18 07:01 Hct 28.5 % (37.5-50.1) L 06/26/18 07:01 MCHC 30.9 g/dL (31.6-35.5) L 06/26/18 07:01 RDW 16.2 % (11.5-14.5) H 06/26/18 07:01 Plt Count 40 K/mcL (140-400) L 06/26/18 07:01 Neutrophils # 1.3 K/mcL (1.6-8.9) L 06/26/18 07:01 Nucleated RBCs/100 WBC 0.7 /100 WBC (0) H 06/26/18 07:01 Immature Plt Fraction 8.1 % (1.1-6.1) H 06/26/18 07:01 PT 13.2 Seconds (9.4-12.1) H 06/25/18 03:38 ABG pH 7.50 pH Units (7.32-7.45) H 06/25/18 04:15 ABG pCO2 64 mmHg (35-45) H 06/25/18 04:15 ABG HCO3 51 mEq/L (21-27) H 06/25/18 04:15 ABG Total CO2 53 mEq/L (20-26) H 06/25/18 04:15 ABG Base Excess 25 mEq/L (-2 to 3) H 06/25/18 04:15 Potassium 3.2 mEq/L (3.5-5.1) L 06/26/18 07:01 Chloride 93 mEq/L (98-107) L 06/26/18 07:01 Carbon Dioxide 43 mEq/L (23-29) H* 06/26/18 07:01 Glucose 152 mg/dL (70-105) H 06/26/18 07:01 POC Glucose 159 mg/dL (70-99) H 06/26/18 05:42 Phosphorus 5.0 mg/dL (2.7-4.5) H 06/26/18 07:01 Iron 53 mcg/dL (65-175) L 06/23/18 14:22 % Saturation 14 % (20-55) L 06/23/18 14:22 Total Bilirubin 2.7 mg/dL (0.3-1.0) H 06/25/18 03:38 AST 11 Units/L (13-39) L 06/25/18 03:38 ALT 6 Units/L (7-52) L 06/25/18 03:38 Ammonia 73 mcmol/L (16-53) H 06/23/18 08:14 B-Natriuretic Peptide 134 pg/mL (Less than 100) H 06/23/18 08:14 Serum Total Protein 4.8 g/dL (6.4-8.9) L 06/25/18 03:38 Albumin 3.4 g/dL (3.5-5.7) L 06/25/18 03:38 Globulin 1.4 g/dL (2.4-3.5) L 06/25/18 03:38 Albumin/Globulin Ratio 2.4 (1.1-2.2) H 06/25/18 03:38 Peritoneal RBC 0.014 M/mcL (0.000-0.002) H 06/23/18 13:00 Periton Tot Nuc Cells 302 TNC/mcL (0-300) H 06/23/18 13:00 - Clinical Findings Intake & Output: Intake & Output 06/25/18 06/26/18 06/26/18 23:59 07:59 15:59 Intake Total 560 / 560 304 / 304 260 / 260 Output Total 875 / 875 Balance 560 / 560 -571 / -571 260 / 260 Weight 122 kg Consult Discharge Plan - Plan Referrals: Derick Ellis DO [Primary Care Provider] -
[2018-06-26] MEDS ORDERED: *HR* Dextrose 50 % in Water (Syg) 50 ML SYRINGE IVP PRN (12:12)
[2018-06-26] MEDS ORDERED: Dextrose Gel 15 GM/37.5 ML TUBE PO PRN ×2 (12:12)
[2018-06-26] MEDS ORDERED: D5% in Water 1,000 ML IVC PRN (12:12)
[2018-06-26] MEDS: Insulin LISPRO 300 UNITS/3 ML VIAL SQ SCH ×3 (15:00→20:52)
[2018-06-26] MEDS ORDERED: acetaZOLAMIDE 250 MG TABLET PO ONE (15:25)
[2018-06-27 04:19] LABS: Basophils % 0.4 %
[2018-06-27 04:21] LABS: Eosinophils # 0.1 K/mcL (0.0-0.6); Eosinophils % 2.2 %; Hematocrit 26.9 % (37.5-50.1); Hemoglobin 8.5 g/dL (12.9-16.9); Immature Granulocytes % 1.8 % (0-4); Immature Platelets 6.3 % (1.1-6.1); Lymphocytes # 0.8 K/mcL (0.6-4.6); Lymphocytes % 34.4 %; Mean Corpuscular HGB Conc 31.6 g/dL (31.6-35.5); Mean Corpuscular Hemoglobin 30.4 pg (28.0-33.3); Mean Corpuscular Volume 96.1 fL (83.0-100.0); Mean Platelet Volume 11.8 fL (9.4-12.4); Monocytes # 0.2 K/mcL (0.0-1.3); Monocytes % 9.7 %; Neutrophils # 1.2 K/mcL (1.6-8.9); Red Cell Distribution Width 15.7 % (11.5-14.5); Segmented Neutrophils % 51.5 %
[2018-06-27 04:25] LABS: Platelet Count 37 K/mcL (140-400)
[2018-06-27 04:40] LABS: BUN/Creatinine Ratio 10 (6-26); Blood Urea Nitrogen 11 mg/dL (6-20); Calcium 8.8 mg/dL (8.6-10.3); Carbon Dioxide 36 mEq/L (23-29); Chloride 96 mEq/L (98-107); Glucose 223 mg/dL (70-105); Magnesium 1.9 mg/dL (1.6-2.6); Osmolality,Calculated 294 (280-300); Phosphorous 3.9 mg/dL (2.7-4.5); Potassium 3.5 mEq/L (3.5-5.1); Sodium 139 mEq/L (136-145); eGFR For Non-African Americans > 60 (> 60)
[2018-06-27] MEDS: Furosemide 40 MG/4 ML VIAL IVP SCH ×2 (08:24→16:45)
[2018-06-27] MEDS: ALPRAZolam 1 MG TABLET PO PRN ×2 (08:25→22:07)
[2018-06-27] MEDS: Gabapentin 300 MG CAPSULE PO SCH ×2 (08:25→22:08)
[2018-06-27] MEDS: Lactulose Oral Soln 20 GM/30 ML UDC PO SCH ×3 (08:25→22:06)
[2018-06-27] MEDS: Sucralfate 1 GM TABLET PO SCH ×3 (08:25→16:45)
[2018-06-27] MEDS: Insulin DETEMIR 100 UNIT/ML X5UNITS SQ SCH ×2 (08:40→22:08)
[2018-06-27] MEDS: Insulin LISPRO 300 UNITS/3 ML VIAL SQ SCH ×4 (08:45→22:08)
--- NOTE | 2018-06-27 10:27 | Internal Med Progress Note ---
Hospitalist Progress Note - Encounter Date of Encounter: 06/27/18 - Subjective Interval History: No complaints, no events overnight. - Exam Vitals: Temp Pulse Resp BP Pulse Ox 98.7 F 73 20 125/58 99 06/27/18 07:28 06/27/18 07:28 06/27/18 07:28 06/27/18 07:28 06/27/18 07:28 - Assessment and Plan (1) Acute on chronic respiratory failure with hypoxia and hypercapnia Current Visit: Yes Status: Acute (2) Encephalopathy Current Visit: Yes Status: Resolved (3) Pleural effusion Current Visit: Yes Status: Suspected (4) Ascites Current Visit: Yes Status: Acute (5) CLL (chronic lymphocytic leukemia) Current Visit: Yes Status: Chronic (6) Thrombocytopenia Current Visit: Yes Status: Chronic (7) Anemia Current Visit: Yes Status: Acute (8) DVT prophylaxis Current Visit: Yes Status: Acute - Time Spent with Patient Total time spent is greater than 50% in coordination of care (as documented) at patient's floor/unit and/or counseling patient: Internal Medicine: Result - Labs CBC & Chem 7: 06/27/18 03:35 06/27/18 03:35 Labs: Short CBC 06/27/18 Range/Units 03:35 WBC 2.3 L (4.3-11.1) K/mcL Hgb 8.5 L (12.9-16.9) g/dL Hct 26.9 L (37.5-50.1) % Plt Count 37 L (140-400) K/mcL Neutrophils # 1.2 L (1.6-8.9) K/mcL BMP 06/26/18 06/26/18 06/27/18 13:49 19:14 03:35 Sodium 139 Potassium 3.6 4.0 3.5 Chloride 96 L Carbon Dioxide 36 H BUN 11 Creatinine 1.10 Glucose 223 H Calcium 8.8 - ABG Interpretation ABG results: ABG ABG pH 7.50 pH Units (7.32-7.45) H 06/25/18 04:15 ABG pCO2 64 mmHg (35-45) H 06/25/18 04:15 ABG pO2 94 mmHg (85-104) 06/25/18 04:15 ABG O2 Saturation 98 % (95-98) 06/25/18 04:15 PT/INR, D-dimer PT 13.2 Seconds (9.4-12.1) H 06/25/18 03:38 Consult Discharge Plan - Plan Referrals: Derick Ellis DO [Primary Care Provider] - (4) Ascites Qualifiers: Ascites type: other type Qualified Code(s): R18.8 - Other ascites (7) Anemia Qualifiers: Anemia type: unspecified type Qualified Code(s): D64.9 - Anemia, unspecified
[2018-06-27] MEDS ORDERED: *HR* OxyCODONE/APAP 5/325 TABLET PO PRN (12:12)
[2018-06-27] MEDS: Aspirin 81 MG TAB.CHEW PO SCH (12:39)
--- NOTE | 2018-06-27 15:01 | Discharge Summary ---
- NOTES TO OUTPATIENT PROVIDER Notes to Outpatient Provider: - Follow-up with Pulmonology as scheduled or in 3- 4 weeks. - Follow-up BP and HR with primary care physician in 2-3 days. - Repeat H&H in 3-5 days. Orders not resulted at time of discharge: Pending orders 06/24/18 14:26 Occult Blood,Stool [BF] Routine 06/28/18 04:00 BMP [Basic Metabolic Panel] AM 0400 Complete Blood Count [HEME] AM 0400 06/29/18 04:00 BMP [Basic Metabolic Panel] AM 0400 Complete Blood Count [HEME] AM 0400 06/30/18 04:00 BMP [Basic Metabolic Panel] AM 0400 Complete Blood Count [HEME] AM 0400 07/01/18 04:00 BMP [Basic Metabolic Panel] AM 0400 Complete Blood Count [HEME] AM 0400 Date of Encounter: 06/27/18 Time of Encounter: 14:58 - Discharge Diagnosis (1) Acute on chronic respiratory failure with hypoxia and hypercapnia Priority: Primary Status: Acute (2) Encephalopathy Priority: Secondary Status: Resolved (3) Pleural effusion Priority: Secondary Status: Suspected (4) Ascites Priority: Secondary Status: Acute Qualifiers: Ascites type: other type Qualified Code(s): R18.8 - Other ascites (5) CLL (chronic lymphocytic leukemia) Priority: Secondary Status: Chronic (6) Thrombocytopenia Priority: Secondary Status: Chronic (7) Anemia Priority: Secondary Status: Acute Qualifiers: Anemia type: unspecified type Qualified Code(s): D64.9 - Anemia, unspecified (8) DVT prophylaxis Priority: Secondary Status: Acute Hospital course: Mr. Fang is a 58 year old male with past history of CLL, CAD, CHF, liver cirrhosis, history of KS who presents to ED for altered mental status for past several days. Per , he was having incoherent speech and his oxygen saturation at home was in the 60s. Upon evaluation in the emergency department the patient was somnolent but arousable and found to have a slightly elevated ammonia and was given lactulose. Patient was also found to be severely hypercapnic and was placed on BiPAP. Imaging showed recurrent of moderate to large left-sided pleural effusion. Patient required chest tube for loculated pleural effusion recently. Patient is also had recurrent ascites and had 6 L removed last hospitalization. The patient's states that his abdomen is becoming enlarged again. He states that he continues to be on chemotherapy for his CLL. Patient was lethargic in the ED and almost needed intubated but was able to tolerate bipap. He had pleural effusion seen on imaging. In the ED he had a pH of 7.19 and PCO2 of 142. His status improved after getting bipap and decreased PCO2 levels. He also had significant ascites. He was admitted for acute on chronic respiratory failure and encephalopathy. He had a paracentesis done and had 7 L removed. Pulmonology was consulted. Ultrasound showed not optimal area to tap pleural fluid and was not done. He was diuresed with IV Lasix 40 mg BID. He was given two doses of DIamox as well. Case discussed with GI over the phone and TIPS would not be urgently done for this patient and they can see him as an outpatient for interval paracentesis. Respiratory status and mental status were back to baseline. - Time Spent with Patient Total time spent providing and/or coordinating discharge services: - Discharge Medications Prescriptions: Rifaximin [Xifaxan] 200 mg PO BID #60 tablet Home Medications: ALPRAZolam [Xanax 1 MG Tablet] 1 mg PO BID PRN 05/09/15 [History] Atorvastatin Calcium [Lipitor] 20 mg PO HS 05/09/15 [History] Metformin HCl [Glucophage] 1,000 mg PO BID 05/09/15 [History] Oxygen 3 l NS HS 03/26/16 [History] Spironolactone [Aldactone] 100 mg PO DAILY 03/26/16 [History] OxyCODONE/APAP 10/325 [Percocet 10/325 MG] 1 tab PO Q6H PRN 07/30/16 [History] Insulin Glargine,Hum.rec.anlog [Lantus Solostar] 50 unit SQ BID 12/24/16 [ History] Prochlorperazine Maleate [Compazine] 1 tab PO Q6HR PRN #30 tablet 05/07/17 [Rx] Gabapentin [Neurontin] 300 mg PO BID 07/15/17 [History] Levothyroxine [Synthroid] 88 mcg PO 0630 #30 tablet 11/23/17 [Rx] Sucralfate [Carafate] 1 gm PO TID 03/09/18 [History] Aspirin 81 mg PO AD 03/26/18 [History] Lactulose [Kristalose] 20 gm PO TID 03/26/18 [History] Pantoprazole Sodium [Protonix] 40 mg PO DAILY 03/26/18 [History] Metoprolol [Lopressor] 75 mg PO BID 05/01/18 [History] Nitroglycerin [Nitromist] 1 - 2 spr SL Q5M PRN 05/01/18 [History] Ibrutinib [Imbruvica] 420 mg PO DAILY #30 tablet 05/21/18 [Rx] Insulin Regular, Human [Novolin R] 0 unit SQ TIDWM PRN 05/24/18 [History] Furosemide [Lasix] 40 mg PO BIDDIURETIC #60 tablet 05/27/18 [Rx] Rifaximin [Xifaxan] 200 mg PO BID #60 tablet 06/27/18 [Rx] Allergies/Adverse Reactions: 3 Allergy/AdvReac Type Severity Reaction Status Date / Time naproxen Allergy Mild Hives Verified 06/08/18 14:46 rituximab Allergy Mild Hives Verified 06/08/18 14:46 JUAN RAMON Inhibitors AdvReac Mild NECK PAIN Verified 06/08/18 14:46 cefdinir AdvReac Mild Dizziness Verified 06/08/18 14:46 hydrocodone AdvReac Mild Vomiting Verified 06/08/18 14:46 levofloxacin AdvReac Mild Dizziness Verified 06/08/18 14:46 ramipril [From Altace] AdvReac Mild NECK PAIN Verified 06/08/18 14:46 tramadol AdvReac Mild Nausea Verified 06/08/18 14:46 doxycycline AdvReac Vomiting Verified 06/08/18 14:46 Date of admission: 06/23/18 11:00 Primary care physician: Derick Ellis DO Consults: 06/23/18 11:32 Consult to Pulmonology [CONS] Routine Consulting Provider: Pulm Crit Care & Sleep Anila Reason for Consult: hypercapnic respiratory failure Call Completed: Yes 06/23/18 12:16 Consult to Interventional Radiology [CONS] Routine Consulting Provider: Radiology Interventional Cols Reason for Consult: paracentesis Call Completed: Yes 06/23/18 14:56 Consult to Production Miner [CONS] Routine Reason for SW Consult: adjunct faculty for medical terminology needs Discharging clinician: Vicenta Dawson - Constitutional Vitals: Temp Pulse Resp BP Pulse Ox 97.5 F L 66 18 134/65 99 06/27/18 14:46 06/27/18 14:46 06/27/18 14:46 06/27/18 14:46 06/27/18 14:46 General appearance: Present: A&O X 3, obese Exam: Constitutional: Obese male, not in acute distress HEENT: NCAT, EOMI Neck: supple, no JVD Cardio: RRR, distant heart sounds Resp: Decreased breath sounds bilaterally Abd: Distended but soft, non tender. No rigidity/guarding Extremities: Trace edema in lower extremities Neuro: Alert and oriented 3, no focal deficits, no asterixis - Patient Status Disposition: Home, Self-Care Condition: Undetermined Functional capacity at discharge: independent ambulation Overall status at discharge: patient is back to baseline - Discharge Instructions Follow Up With: Derick Ellis DO [Primary Care Provider] - - Diet and Activity Diet: advance to your usual diet
[2018-06-27 20:36] LABS: Potassium 3.7 mEq/L (3.5-5.1)
[2018-06-28 04:05] LABS: Eosinophils % 1.9 %; Hematocrit 28.5 % (37.5-50.1); Hemoglobin 8.9 g/dL (12.9-16.9); Immature Platelets 7.4 % (1.1-6.1); Lymphocytes # 0.6 K/mcL (0.6-4.6); Lymphocytes % 27.8 %; Mean Corpuscular HGB Conc 31.2 g/dL (31.6-35.5); Mean Corpuscular Hemoglobin 30.3 pg (28.0-33.3); Mean Corpuscular Volume 96.9 fL (83.0-100.0); Mean Platelet Volume 10.2 fL (9.4-12.4); Monocytes # 0.3 K/mcL (0.0-1.3); Neutrophils # 1.2 K/mcL (1.6-8.9); Red Blood Count 2.94 M/mcL (4.19-5.50); Red Cell Distribution Width 15.7 % (11.5-14.5); Segmented Neutrophils % 57.3 %
[2018-06-28 04:15] LABS: Platelet Count 35 K/mcL (140-400)
[2018-06-28 04:23] LABS: BUN/Creatinine Ratio 11 (6-26); Blood Urea Nitrogen 12 mg/dL (6-20); Calcium 8.7 mg/dL (8.6-10.3); Carbon Dioxide 35 mEq/L (23-29); Chloride 99 mEq/L (98-107); Glucose 160 mg/dL (70-105); Osmolality,Calculated 293 (280-300); Potassium 4.1 mEq/L (3.5-5.1); Sodium 140 mEq/L (136-145); eGFR For Non-African Americans > 60 (> 60)
[2018-06-28 07:07] VITALS: BP 101/85
[2018-06-28] MEDS: Furosemide 40 MG/4 ML VIAL IVP SCH (08:56)
[2018-06-28] MEDS: Gabapentin 300 MG CAPSULE PO SCH (08:56)
[2018-06-28] MEDS: Sucralfate 1 GM TABLET PO SCH (08:56)
[2018-06-28] MEDS: Lactulose Oral Soln 20 GM/30 ML UDC PO SCH (08:56)
[2018-06-28] MEDS: Insulin DETEMIR 100 UNIT/ML X5UNITS SQ SCH (08:57)
[2018-06-28] MEDS: Insulin LISPRO 300 UNITS/3 ML VIAL SQ SCH (08:57)
--- NOTE | 2018-06-28 09:52 | Event Note ---
Date of Encounter: 06/28/18 Time of Encounter: 09:49 S: seen and patient has no complaints, no acute events. O: vitals: reviewed, bradycardia and normal to low BP. Exam: NAD, CVS: RRR, Lungs:CTAB, Abd: soft, nt, mild distension A: 1. Acute resp failure 2. Ascites 3. Bradycardia on metoprolol P: - Okay for discharge today - See discharge summary for hospital course - Decrease Metoprolol on discharge to 25 mg PO BID since HR running low.
== END 2018-06-28 11:36 | disposition home or self-care (01) | DRG 189 ==
LOC: 3BNU 08:00 → EMEROOARM 08:00 → SUATTDRO 11:00 → 2NNU 13:14
PROVIDERS: ADMIT Internal Medicine; ATTEND Internal Medicine

== ENCOUNTER 2019-01-01 21:54 | Observation (INO) ==
[2019-01-01 22:42] LABS: Hemoglobin 8.2 g/dL (12.9-16.9)
[2019-01-01 22:44] LABS: Basophils % 0.2 %; Eosinophils % 0.7 %; Hematocrit 28.8 % (37.5-50.1); Immature Granulocytes % 4.8 % (0-4); Immature Platelets 7.1 % (1.1-6.1); Lymphocytes % 22.6 %; Mean Corpuscular HGB Conc 28.5 g/dL (31.6-35.5); Mean Corpuscular Hemoglobin 26.1 pg (28.0-33.3); Mean Corpuscular Volume 91.7 fL (83.0-100.0); Mean Platelet Volume 10.7 fL (9.4-12.4); Monocytes # 0.4 K/mcL (0.0-1.3); Monocytes % 9.2 %; Neutrophils # 2.7 K/mcL (1.6-8.9); Red Blood Count 3.14 M/mcL (4.19-5.50); Red Cell Distribution Width 15.2 % (11.5-14.5); Segmented Neutrophils % 62.5 %
[2019-01-01 22:46] LABS: Platelet Count 52 K/mcL (140-400)
[2019-01-01 23:03] LABS: BUN/Creatinine Ratio 10 (6-26); Blood Urea Nitrogen 11 mg/dL (6-20); Calcium 8.8 mg/dL (8.6-10.3); Carbon Dioxide 35 mEq/L (23-29); Chloride 98 mEq/L (98-107); Glucose 250 mg/dL (70-105); Osmolality,Calculated 298 (280-300); Potassium 3.7 mEq/L (3.5-5.1); Sodium 140 mEq/L (136-145); eGFR For Non-African Americans > 60 (> 60)
[2019-01-01 23:04] LABS: Troponin I < 0.03 ng/mL (< 0.04)
--- NOTE | 2019-01-01 23:49 | Emergency Department Note ---
Disposition Clinical Impression: Pleural effusion, Thrombocytopenia, Portal hypertension Anemia Qualifiers: Anemia type: unspecified type Qualified Code(s): D64.9 - Anemia, unspecified CHF (congestive heart failure) Qualifiers: Heart failure type: unspecified Heart failure chronicity: acute on chronic Qualified Code(s): I50.9 - Heart failure, unspecified Disposition: Admitted As Inpatient Condition: Good SOB HPI - General Chief Complaint: ED Shortness of Breath/Dyspnea Stated Complaint: JEANNE Time Seen by Provider: 01/01/19 22:56 Source: patient, family Mode of arrival: private vehicle Limitations: no limitations Nursing Notes Reviewed: Yes Vital Signs Reviewed: Yes - History of Present Illness This is a 58-year-old male with a past medical history of cirrhosis, CHF, CLL, diabetes who presents to emergency department for evaluation of difficulty in breathing that started yesterday evening. He states this is accompanied with feeling weak, shaky. He states he is also experiencing some chest tightness when he takes deep breaths started yesterday but it seems to be progressively worsening through the day. He is also complaining of abdominal swelling (increasing in girth) as well as increasing edema to the bilateral lower extremities and both of these are more than normal , As well as increasing shortness of breath with exertion. Patient denies recent illness, fever, chills, HEENT complaints, coughing, abdominal pain, nausea, vomiting, has patient, diarrhea. He states chronic rhinorrhea as related to wearing a vent at night. Patient is on home O2 at 2 L however yesterday and today has required 3 L maintaining oxygenation and to fill okay. Patient and family report long-standing history of pleural effusions, needing of paracentesis related to cirrhosis. Patient states he is on Lasix 40 mg twice a day, he takes them at 8 AM and 8 PM as well as Aldactone 100 mg which she takes in the morning. He states he has had all of his medications today as well as every day. Pt Subjective Complaint: shortness of breath, pain with inspiration Onset (ago): day(s) Context: other Severity: moderate, severe Consistency/Duration: constant, gradually worsening Improves with: oxygen, rest Worsens with: lying flat, exertion Known history of: congestive heart failure, diabetes Associated symptoms: Reports: pain with inspiration. Denies: chest pain, fever, cough, wheezing, sputum production, orthopnea, lower extremity pain, polyuria, polydipsia, parasthesias, palpitations, hemoptysis, diaphoresis, na usea/vomiting, syncope, abdominal pain, rash, sense of impending doom Treatment prior to arrival: oxygen, other (Medications) Cough present: No - Related Data Home oxygen amount: 2 liters Home Medications Medication Instructions Recorded Confirmed RX: ALPRAZolam [Xanax 1 MG Tablet] 1 mg PO BID PRN 05/09/15 01/02/19 RX: Atorvastatin Calcium [Lipitor] 20 mg PO HS 05/09/15 01/02/19 RX: Metformin HCl [Glucophage] 1,000 mg PO BID 05/09/15 01/02/19 RX: Oxygen 3 l NS 03/26/16 01/02/19 RX: Spironolactone [Aldactone] 100 mg PO DAILY 03/26/16 01/02/19 RX: OxyCODONE/APAP 10/325 1 tab PO Q6H PRN 07/30/16 01/02/19 [Percocet 10/325 MG] RX: Insulin Glargine,Hum.rec.anlog 50 unit SQ BID 12/24/16 01/02/19 [Lantus Solostar] RX: Gabapentin [Neurontin] 300 mg PO BID 07/15/17 01/02/19 RX: Sucralfate [Carafate] 1 gm PO BID 03/09/18 01/02/19 RX: Lactulose [Kristalose] 15 gm PO TID 03/26/18 01/02/19 RX: Pantoprazole Sodium [Protonix] 40 mg PO DAILY 03/26/18 01/02/19 RX: Insulin Regular, Human 0 unit SQ TIDWM PRN 05/24/18 01/02/19 [Novolin R] RX: Metoprolol [Lopressor] 50 mg PO BID 07/07/18 01/02/19 RX: Levothyroxine [Synthroid] [place] [address]/02/19 01/02/19 Previous Rx's Medication Instructions Recorded RX: Furosemide [Lasix] 40 mg PO BIDDIURETIC #60 tablet 05/27/18 RX: Ibrutinib [Imbruvica] 420 mg PO DAILY #30 tablet 10/06/18 RX: Prochlorperazine Maleate 1 tab PO Q6HR PRN #30 tablet 10/21/18 [Compazine] Allergies Allergy/AdvReac Type Severity Reaction Status Date / Time naproxen Allergy Mild Hives Verified 01/01/19 22:44 rituximab Allergy Mild Hives Verified 01/01/19 22:44 JUAN RAMON Inhibitors AdvReac Mild NECK PAIN Verified 01/01/19 22:44 cefdinir AdvReac Mild Dizziness Verified 01/01/19 22:44 hydrocodone AdvReac Mild Vomiting Verified 01/01/19 22:44 levofloxacin AdvReac Mild Dizziness Verified 01/01/19 22:44 ramipril [From Altace] AdvReac Mild NECK PAIN Verified 01/01/19 22:44 tramadol AdvReac Mild Nausea Verified 01/01/19 22:44 doxycycline AdvReac Vomiting Verified 01/01/19 22:44 All systems ED: reviewed and negative except as stated. Review of Systems: As Per HPI Constitutional: Denies: fever, chills ENT ED: Reports: as per HPI, other. Denies: ear pain, throat pain, congestion Cardiovascular: Reports: dyspnea on exertion, edema. Denies: chest pain, palpitations, orthopnea, syncope, paroxysmal nocturnal dyspnea Respiratory: Denies: cough, dyspnea, wheezes, hemoptysis, sputum production Gastrointestinal: Reports: as per HPI, other. Denies: abdominal pain, nausea, vomiting, diarrhea, constipation, hematemesis, melena, hematochezia Musculoskeletal: Reports: back pain (Chronic) Integumentary: Denies: rash Neurological: Reports: weakness. Denies: headache, numbness, paresthesias, confusion, abnormal gait Past Medical History - Past Medical History Attestation: Yes The following information was validated with the patient. Source: patient, old records reviewed, obtained from family Medical history: Reports: cancer, cirrhosis, CHF, COPD, diabetes, GERD, hyperlipidemia, hypertension, kidney stones, myocardial infarction Surgical history: Reports: LE stent(s) Psychiatric history: Reports: depression - Social History Smoking Status: Former smoker Smokeless Tobacco Status: Yes Alcohol use: Reports: none Drug use: Reports: none Physical Exam - General Limitations: no limitations General appearance: alert, in no apparent distress - Head Head exam: atraumatic, normocephalic, normal inspection - Eye Eye exam: Present: normal appearance - ENT ENT exam: mucous membranes moist - Neck Neck exam: Present: normal inspection, full ROM, trachea midline - Chest Chest inspection: Present: normal inspection, symmetric chest wall rise - Respiratory Respiratory exam: Present: normal lung sounds bilaterally, prolonged expiratory phase, other (Diminished bases). Absent: respiratory distress, wheezes, stridor, accessory muscle use - Cardiovascular Cardiovascular exam: Present: regular rate, normal rhythm, normal heart sounds - Abdominal Exam Abdominal exam: Present: soft, Non-Tender, normal bowel sounds, ascites. Absent: distention, guarding, rebound, Lorenzo's sign, Rovsing's sign, tenderness at McBurney's Point, mass - Extremities Exam Extremities exam: Present: normal inspection, full ROM, other (BLE edema 4+ left 3+ right) - Neurological Exam Neurological exam: Present: alert, oriented X3 - Psychiatric Psychiatric exam: Present: normal affect, normal mood - Skin Skin exam: Present: warm, dry, intact, normal color Course Course Narrative: Well-developed, largely obese male in no acute distress. Patient is afebrile, non-tachycardic. He speaks in full sentences without conversational dyspnea. He is laying on his left side propped up to help facilitate breathing, 3 L oxygen with appropriate saturation. Physical examination reveals lungs are clear though diminished on the basis, no wheezing, respiratory distress; abdomen is protuberant, soft, no pain with palpation, no organomegaly, masses. Bilateral lower extremities with pitting edema left greater than right. EKG completed upon arrival reveals a sinus rhythm with a ventricular rate of 88 bpm, UT interval 143 ms, QTC 425 ms, there is no evidence of ischemic morphology. Concern for CHF exacerbation versus infectious etiology. Patient is requiring more oxygen than normal to maintain oxygen saturation. We will initiate labs, chest x-ray. Disposition pending results of labs, did discuss patient possibility of admission for which he is agreeable should he need to be. - Reevaluation(s) Reevaluation #1: Patient resting quietly. History of acquired 3 L of oxygen and saturating 94-9 6%. Family states he got up to go the bathroom and just standing up he dropped down to the 80s and was very short of breath whenever he walked across the room. Patient states he did feel more short of breath when he was walking across the room. Labs have returned unremarkable. CBC is at baseline showing a chronic anemia and chronic thrombocytopenia, metabolic panel is negative, CO2 was 35 which is slightly higher than his baseline, LFTs are patient's baseline, troponin was less than 0.03, BNP was negative. Chest x-ray does show the persistent pulmonary edema, there is an increase in the right effusion her left effusion has remained at baseline. Patient has required an increase in oxygen, he is becoming short of breath. [place] [facility] [place], they state they are half hour from here in calling the squad's an hour until squad house, they would much prefer patient stay in the hospital due to the shortness of breath and increased oxygenation, I do feel this is reasonable given the patient's symptoms. Patient has continued with abdominal pain that is quite of abdominal fullness, we will obtain a CT of the abdomen. We will give her another 40 mg of Lasix IV to help facilitate the effusion and the edema. I did discuss the case with attending Dr. Gomez who is having more on face time with the patient and is agreeable to plan of care. Time: 01:18 Reevaluation #2: Patient has been resting quietly. CT of the pelvis returns with diverticulosis, unable to tell if there is a diverticulitis given the ascites however patient without any complaints or symptomology of diverticulitis. There is cirrhosis wi th portal hypertension. Patient has continued to saturate well on 3 L of oxygen. He is mildly stable. Spoke with family who are agreeable to plan of care for admission to the hospital. Spoke with hospitalist, agreeable to admission to the hospital. Family remains agreeable. Patient doing well at this time. We will continue to monitor until transition to inpatient care. Time: 02:51 Vital Signs Temperature 98.5 F 01/01/19 22:03 Pulse Rate 91 01/01/19 22:03 Respiratory Rate 16 01/01/19 22:03 Blood Pressure 166/76 01/01/19 22:03 O2 Sat by Pulse Oximetry 94 01/01/19 22:03 Temperature 98.7 F 01/02/19 04:32 Pulse Rate 93 01/02/19 04:32 Respiratory Rate 17 01/02/19 04:32 Blood Pressure 128/70 01/02/19 04:32 O2 Sat by Pulse Oximetry 97 01/02/19 04:32 Oxygen Delivery Oxygen Delivery Nasal Cannula Shortness of Breath/Dyspnea - Medical Records Medical records reviewed: Yes I reviewed the patient's medical records. - Lab Data Lab results reviewed: Yes I reviewed the patient's lab results. Result diagrams: 01/01/19 22:24 01/01/19 22:24 Lab Results 01/01/19 01/01/19 01/01/19 Range/Units 22:24 22:24 22:24 WBC 4.3 (4.3-11.1) K/mcL RBC 3.14 L (4.19-5.50) M/mcL Hgb 8.2 L (12.9-16.9) g/dL Hct 28.8 L (37.5-50.1) % MCV 91.7 (83.0-100.0) fL MCH 26.1 L (28.0-33.3) pg MCHC 28.5 L (31.6-35.5) g/dL RDW 15.2 H (11.5-14.5) % Plt Count 52 L (140-400) K/mcL MPV 10.7 (9.4-12.4) fL Immature Gran % 4.8 H (0-4) % Seg Neutrophils % 62.5 % Lymphocytes % 22.6 % Monocytes % 9.2 % Eosinophils % 0.7 % Basophils % 0.2 % Neutrophils # 2.7 (1.6-8.9) K/mcL Lymphocytes # 1.0 (0.6-4.6) K/mcL Monocytes # 0.4 (0.0-1.3) K/mcL Eosinophils # 0.0 (0.0-0.6) K/mcL Basophils # 0.0 (0.0-0.2) K/mcL Immature Plt Fraction 7.1 H (1.1-6.1) % Sodium 140 (136-145) mEq/L Potassium 3.7 (3.5-5.1) mEq/L Chloride 98 (98-107) mEq/L Carbon Dioxide 35 H (23-29) mEq/L BUN 11 (6-20) mg/dL Creatinine 1.11 (0.70-1.30) mg/dL Est GFR ( Amer) > 60 (> 60) Est GFR (Non-Af Amer) > 60 (> 60) BUN/Creatinine Ratio 10 (6-26) Glucose 250 H (70-105) mg/dL Calculated Osmolality 298 (280-300) Lactic Acid 1.8 (0.5-2.2) mmol/L Calcium 8.8 (8.6-10.3) mg/dL Total Bilirubin 2.0 H (0.3-1.0) mg/dL Direct Bilirubin 0.4 H (0.0-0.2) mg/dL Indirect Bilirubin 1.6 H (0.0-1.2) mg/dL AST 13 (13-39) Units/L ALT 10 (7-52) Units/L Alkaline Phosphatase 75 (34-104) Units/L Ammonia (16-53) mcmol/L Troponin I < 0.03 (< 0.04) ng/mL B-Natriuretic Peptide (Less than 100) pg/mL Serum Total Protein 5.6 L (6.4-8.9) g/dL Albumin 3.9 (3.5-5.7) g/dL Globulin 1.7 L (2.4-3.5) g/dL Albumin/Globulin Ratio 2.3 H (1.1-2.2) 01/01/19 01/01/19 01/02/19 Range/Units 22:24 23:07 01:04 WBC (4.3-11.1) K/mcL RBC (4.19-5.50) M/mcL Hgb (12.9-16.9) g/dL Hct (37.5-50.1) % MCV (83.0-100.0) fL MCH (28.0-33.3) pg MCHC (31.6-35.5) g/dL RDW (11.5-14.5) % Plt Count (140-400) K/mcL MPV (9.4-12.4) fL Immature Gran % (0-4) % Seg Neutrophils % % Lymphocytes % % Monocytes % % Eosinophils % % Basophils % % Neutrophils # (1.6-8.9) K/mcL Lymphocytes # (0.6-4.6) K/mcL Monocytes # (0.0-1.3) K/mcL Eosinophils # (0.0-0.6) K/mcL Basophils # (0.0-0.2) K/mcL Immature Plt Fraction (1.1-6.1) % Sodium (136-145) mEq/L Potassium (3.5-5.1) mEq/L Chloride (98-107) mEq/L Carbon Dioxide (23-29) mEq/L BUN (6-20) mg/dL Creatinine (0.70-1.30) mg/dL Est GFR ( Amer) (> 60) Est GFR (Non-Af Amer) (> 60) BUN/Creatinine Ratio (6-26) Glucose (70-105) mg/dL Calculated Osmolality (280-300) Lactic Acid 1.4 (0.5-2.2) mmol/L Calcium (8.6-10.3) mg/dL Total Bilirubin 1.9 H (0.3-1.0) mg/dL Direct Bilirubin 0.4 H (0.0-0.2) mg/dL Indirect Bilirubin 1.5 H (0.0-1.2) mg/dL AST 13 (13-39) Units/L ALT 10 (7-52) Units/L Alkaline Phosphatase 71 (34-104) Units/L Ammonia (16-53) mcmol/L Troponin I (< 0.04) ng/mL B-Natriuretic Peptide 65 (Less than 100) pg/mL Serum Total Protein 5.5 L (6.4-8.9) g/dL Albumin 3.9 (3.5-5.7) g/dL Globulin 1.6 L (2.4-3.5) g/dL Albumin/Globulin Ratio 2.4 H (1.1-2.2) 01/02/19 Range/Units 01:04 WBC (4.3-11.1) K/mcL RBC (4.19-5.50) M/mcL Hgb (12.9-16.9) g/dL Hct (37.5-50.1) % MCV (83.0-100.0) fL MCH (28.0-33.3) pg MCHC (31.6-35.5) g/dL RDW (11.5-14.5) % Plt Count (140-400) K/mcL MPV (9.4-12.4) fL Immature Gran % (0-4) % Seg Neutrophils % % Lymphocytes % % Monocytes % % Eosinophils % % Basophils % % Neutrophils # (1.6-8.9) K/mcL Lymphocytes # (0.6-4.6) K/mcL Monocytes # (0.0-1.3) K/mcL Eosinophils # (0.0-0.6) K/mcL Basophils # (0.0-0.2) K/mcL Immature Plt Fraction (1.1-6.1) % Sodium (136-145) mEq/L Potassium (3.5-5.1) mEq/L Chloride (98-107) mEq/L Carbon Dioxide (23-29) mEq/L BUN (6-20) mg/dL Creatinine (0.70-1.30) mg/dL Est GFR ( Amer) (> 60) Est GFR (Non-Af Amer) (> 60) BUN/Creatinine Ratio (6-26) Glucose (70-105) mg/dL Calculated Osmolality (280-300) Lactic Acid (0.5-2.2) mmol/L Calcium (8.6-10.3) mg/dL Total Bilirubin (0.3-1.0) mg/dL Direct Bilirubin (0.0-0.2) mg/dL Indirect Bilirubin (0.0-1.2) mg/dL AST (13-39) Units/L ALT (7-52) Units/L Alkaline Phosphatase (34-104) Units/L Ammonia 86 H (16-53) mcmol/L Troponin I (< 0.04) ng/mL B-Natriuretic Peptide (Less than 100) pg/mL Serum Total Protein (6.4-8.9) g/dL Albumin (3.5-5.7) g/dL Globulin (2.4-3.5) g/dL Albumin/Globulin Ratio (1.1-2.2) - Radiology Data Radiology results reviewed: Yes I reviewed the patient's radiology results. Chest X-Ray 01/01/19 22:06 IMPRESSION: Persistent pulmonary edema with increased right-sided effusion. Left-sided effusion is unchanged. D/ / Joseph Pemberton MD / Joseph Pemberton MD Interpreting Provider: Joseph Pemberton MD Abdomen/Pelvis CT 01/02/19 00:45 IMPRESSION: 1. Diverticulosis. Diverticulitis cannot be excluded in the presence of ascites. 2. Cirrhosis and portal hypertension. 3. Retroperitoneal soft tissue likely represents retroperitoneal fibrosis. 4. Persistent bibasilar pleuroparenchymal disease. D/ / Aiden Moffett MD / Aiden Moffett MD Interpreting Provider: Aiden Moffett MD - EKG Data EKG attestation: Yes I reviewed and interpreted this EKG.
[2019-01-01 23:55] LABS: Alanine Aminotransferase 10 Units/L (7-52); Albumin 3.9 g/dL (3.5-5.7); Albumin/Globulin Ratio 2.3 (1.1-2.2); Alkaline Phosphatase 75 Units/L (34-104); Aspartate Amino Transferase 13 Units/L (13-39); Bilirubin,Direct 0.4 mg/dL (0.0-0.2); Bilirubin,Indirect 1.6 mg/dL (0.0-1.2); Globulin 1.7 g/dL (2.4-3.5); Total Protein 5.6 g/dL (6.4-8.9)
[2019-01-02] MEDS ORDERED: Furosemide 40 MG/4 ML VIAL IVP ONE (00:45)
[2019-01-02 01:36] LABS: Albumin 3.9 g/dL (3.5-5.7); Albumin/Globulin Ratio 2.4 (1.1-2.2); Bilirubin,Direct 0.4 mg/dL (0.0-0.2); Bilirubin,Indirect 1.5 mg/dL (0.0-1.2); Bilirubin,Total 1.9 mg/dL (0.3-1.0); Globulin 1.6 g/dL (2.4-3.5); Total Protein 5.5 g/dL (6.4-8.9)
--- NOTE | 2019-01-02 04:00 | Emergency Department Note ---
Disposition Clinical Impression: Pleural effusion, Thrombocytopenia, Portal hypertension Anemia Qualifiers: Anemia type: unspecified type Qualified Code(s): D64.9 - Anemia, unspecified CHF (congestive heart failure) Qualifiers: Heart failure type: unspecified Heart failure chronicity: acute on chronic Qualified Code(s): I50.9 - Heart failure, unspecified Disposition: Admitted As Inpatient Condition: Good General Adult HPI - General Chief complaint: ED Shortness of Breath/Dyspnea Stated complaint: JEANNE Time Seen by Provider: 01/01/19 22:56 Source: patient, family Mode of arrival: private vehicle Limitations: no limitations Nursing Notes Reviewed: Yes Vital Signs Reviewed: Yes - History of Present Illness Pain Scale: 8 - Related Data Home Medications Medication Instructions Recorded Confirmed ALPRAZolam [Xanax 1 MG Tablet] 1 mg PO BID PRN 05/09/15 11/24/18 Atorvastatin Calcium [Lipitor] 20 mg PO HS 05/09/15 11/24/18 Metformin HCl [Glucophage] 1,000 mg PO BID 05/09/15 11/24/18 Oxygen 3 l NS 03/26/16 11/24/18 Spironolactone [Aldactone] 100 mg PO DAILY 03/26/16 11/24/18 OxyCODONE/APAP 10/325 [Percocet 1 tab PO Q6H PRN 07/30/16 11/24/18 10/325 MG] Insulin Glargine,Hum.rec.anlog 50 unit SQ BID 12/24/16 11/24/18 [Lantus Solostar] Gabapentin [Neurontin] 300 mg PO BID 07/15/17 11/24/18 Sucralfate [Carafate] 1 gm PO BID 03/09/18 11/24/18 Lactulose [Kristalose] 15 gm PO TID 03/26/18 11/24/18 Pantoprazole Sodium [Protonix] 40 mg PO DAILY 03/26/18 11/24/18 Nitroglycerin [Nitromist] 1 - 2 spr SL Q5M PRN 05/01/18 11/24/18 Insulin Regular, Human [Novolin R] 0 unit SQ TIDWM PRN 05/24/18 11/24/18 Metoprolol [Lopressor] 50 mg PO BID 07/07/18 11/24/18 Previous Rx's Medication Instructions Recorded Furosemide [Lasix] 40 mg PO BIDDIURETIC #60 tablet 05/27/18 Rifaximin [Xifaxan] 200 mg PO BID #60 tablet 06/27/18 Ibrutinib [Imbruvica] 420 mg PO DAILY #30 tablet 10/06/18 Prochlorperazine Maleate 1 tab PO Q6HR PRN #30 tablet 10/21/18 [Compazine] Levothyroxine [Synthroid] 88 mcg PO 0630 #30 tablet 12/08/18 Azithromycin [Azithromycin 6-Tab 250 mg PO PER PKG DI #6 tab 12/22/18 Pack] Allergies Allergy/AdvReac Type Severity Reaction Status Date / Time naproxen Allergy Mild Hives Verified 01/01/19 22:44 rituximab Allergy Mild Hives Verified 01/01/19 22:44 JUAN RAMON Inhibitors AdvReac Mild NECK PAIN Verified 01/01/19 22:44 cefdinir AdvReac Mild Dizziness Verified 01/01/19 22:44 hydrocodone AdvReac Mild Vomiting Verified 01/01/19 22:44 levofloxacin AdvReac Mild Dizziness Verified 01/01/19 22:44 ramipril [From Altace] AdvReac Mild NECK PAIN Verified 01/01/19 22:44 tramadol AdvReac Mild Nausea Verified 01/01/19 22:44 doxycycline AdvReac Vomiting Verified 01/01/19 22:44 Constitutional: Denies: fever, chills ENT ED: Reports: as per HPI, other. Denies: ear pain, throat pain, congestion Cardiovascular: Reports: dyspnea on exertion, edema. Denies: chest pain, palpitations, orthopnea, syncope, paroxysmal nocturnal dyspnea Respiratory: Denies: cough, dyspnea, wheezes, hemoptysis, sputum production Gastrointestinal: Reports: as per HPI, other. Denies: abdominal pain, nausea, vomiting, diarrhea, constipation, hematemesis, melena, hematochezia Musculoskeletal: Reports: back pain (Chronic) Integumentary: Denies: rash Neurological: Reports: weakness. Denies: headache, numbness, paresthesias, confusion, abnormal gait Past Medical History - Past Medical History Medical history: Reports: cancer, cirrhosis, CHF, COPD, diabetes, GERD, hyperlipidemia, hypertension, kidney stones, myocardial infarction Surgical history: Reports: LE stent(s) Psychiatric history: Reports: depression - Social History Smoking Status: Former smoker Smokeless Tobacco Status: Yes Alcohol use: Reports: none Drug use: Reports: none Physical Exam - General Limitations: no limitations General appearance: alert, in no apparent distress Course Vital Signs Temperature 98.5 F 01/01/19 22:03 Pulse Rate 91 01/01/19 22:03 Respiratory Rate 16 01/01/19 22:03 Blood Pressure 166/76 01/01/19 22:03 O2 Sat by Pulse Oximetry 94 01/01/19 22:03 Temperature 98.5 F 01/01/19 22:03 Pulse Rate 87 01/02/19 03:01 Respiratory Rate 20 01/02/19 03:51 Blood Pressure 119/46 01/02/19 03:51 O2 Sat by Pulse Oximetry 100 01/02/19 03:01 Oxygen Delivery Oxygen Delivery Nasal Cannula Medical Decision Making - Medical Records Medical records reviewed: Yes I reviewed the patient's medical records. - Lab Data Lab results reviewed: Yes I reviewed the patient's lab results. Result diagrams: 01/01/19 22:24 01/01/19 22:24 Lab Results 01/01/19 01/01/19 01/01/19 Range/Units 22:24 22:24 22:24 WBC 4.3 (4.3-11.1) K/mcL RBC 3.14 L (4.19-5.50) M/mcL Hgb 8.2 L (12.9-16.9) g/dL Hct 28.8 L (37.5-50.1) % MCV 91.7 (83.0-100.0) fL MCH 26.1 L (28.0-33.3) pg MCHC 28.5 L (31.6-35.5) g/dL RDW 15.2 H (11.5-14.5) % Plt Count 52 L (140-400) K/mcL MPV 10.7 (9.4-12.4) fL Immature Gran % 4.8 H (0-4) % Seg Neutrophils % 62.5 % Lymphocytes % 22.6 % Monocytes % 9.2 % Eosinophils % 0.7 % Basophils % 0.2 % Neutrophils # 2.7 (1.6-8.9) K/mcL Lymphocytes # 1.0 (0.6-4.6) K/mcL Monocytes # 0.4 (0.0-1.3) K/mcL Eosinophils # 0.0 (0.0-0.6) K/mcL Basophils # 0.0 (0.0-0.2) K/mcL Immature Plt Fraction 7.1 H (1.1-6.1) % Sodium 140 (136-145) mEq/L Potassium 3.7 (3.5-5.1) mEq/L Chloride 98 (98-107) mEq/L Carbon Dioxide 35 H (23-29) mEq/L BUN 11 (6-20) mg/dL Creatinine 1.11 (0.70-1.30) mg/dL Est GFR ( Amer) > 60 (> 60) Est GFR (Non-Af Amer) > 60 (> 60) BUN/Creatinine Ratio 10 (6-26) Glucose 250 H (70-105) mg/dL Calculated Osmolality 298 (280-300) Lactic Acid 1.8 (0.5-2.2) mmol/L Calcium 8.8 (8.6-10.3) mg/dL Total Bilirubin 2.0 H (0.3-1.0) mg/dL Direct Bilirubin 0.4 H (0.0-0.2) mg/dL Indirect Bilirubin 1.6 H (0.0-1.2) mg/dL AST 13 (13-39) Units/L ALT 10 (7-52) Units/L Alkaline Phosphatase 75 (34-104) Units/L Ammonia (16-53) mcmol/L Troponin I < 0.03 (< 0.04) ng/mL B-Natriuretic Peptide (Less than 100) pg/mL Serum Total Protein 5.6 L (6.4-8.9) g/dL Albumin 3.9 (3.5-5.7) g/dL Globulin 1.7 L (2.4-3.5) g/dL Albumin/Globulin Ratio 2.3 H (1.1-2.2) 01/01/19 01/01/19 01/02/19 Range/Units 22:24 23:07 01:04 WBC (4.3-11.1) K/mcL RBC (4.19-5.50) M/mcL Hgb (12.9-16.9) g/dL Hct (37.5-50.1) % MCV (83.0-100.0) fL MCH (28.0-33.3) pg MCHC (31.6-35.5) g/dL RDW (11.5-14.5) % Plt Count (140-400) K/mcL MPV (9.4-12.4) fL Immature Gran % (0-4) % Seg Neutrophils % % Lymphocytes % % Monocytes % % Eosinophils % % Basophils % % Neutrophils # (1.6-8.9) K/mcL Lymphocytes # (0.6-4.6) K/mcL Monocytes # (0.0-1.3) K/mcL Eosinophils # (0.0-0.6) K/mcL Basophils # (0.0-0.2) K/mcL Immature Plt Fraction (1.1-6.1) % Sodium (136-145) mEq/L Potassium (3.5-5.1) mEq/L Chloride (98-107) mEq/L Carbon Dioxide (23-29) mEq/L BUN (6-20) mg/dL Creatinine (0.70-1.30) mg/dL Est GFR ( Amer) (> 60) Est GFR (Non-Af Amer) (> 60) BUN/Creatinine Ratio (6-26) Glucose (70-105) mg/dL Calculated Osmolality (280-300) Lactic Acid 1.4 (0.5-2.2) mmol/L Calcium (8.6-10.3) mg/dL Total Bilirubin 1.9 H (0.3-1.0) mg/dL Direct Bilirubin 0.4 H (0.0-0.2) mg/dL Indirect Bilirubin 1.5 H (0.0-1.2) mg/dL AST 13 (13-39) Units/L ALT 10 (7-52) Units/L Alkaline Phosphatase 71 (34-104) Units/L Ammonia (16-53) mcmol/L Troponin I (< 0.04) ng/mL B-Natriuretic Peptide 65 (Less than 100) pg/mL Serum Total Protein 5.5 L (6.4-8.9) g/dL Albumin 3.9 (3.5-5.7) g/dL Globulin 1.6 L (2.4-3.5) g/dL Albumin/Globulin Ratio 2.4 H (1.1-2.2) 04/07/19 Range/Units 01:04 WBC (4.3-11.1) K/mcL RBC (4.19-5.50) M/mcL Hgb (12.9-16.9) g/dL Hct (37.5-50.1) % MCV (83.0-100.0) fL MCH (28.0-33.3) pg MCHC (31.6-35.5) g/dL RDW (11.5-14.5) % Plt Count (140-400) K/mcL MPV (9.4-12.4) fL Immature Gran % (0-4) % Seg Neutrophils % % Lymphocytes % % Monocytes % % Eosinophils % % Basophils % % Neutrophils # (1.6-8.9) K/mcL Lymphocytes # (0.6-4.6) K/mcL Monocytes # (0.0-1.3) K/mcL Eosinophils # (0.0-0.6) K/mcL Basophils # (0.0-0.2) K/mcL Immature Plt Fraction (1.1-6.1) % Sodium (136-145) mEq/L Potassium (3.5-5.1) mEq/L Chloride (98-107) mEq/L Carbon Dioxide (23-29) mEq/L BUN (6-20) mg/dL Creatinine (0.70-1.30) mg/dL Est GFR ( Amer) (> 60) Est GFR (Non-Af Amer) (> 60) BUN/Creatinine Ratio (6-26) Glucose (70-105) mg/dL Calculated Osmolality (280-300) Lactic Acid (0.5-2.2) mmol/L Calcium (8.6-10.3) mg/dL Total Bilirubin (0.3-1.0) mg/dL Direct Bilirubin (0.0-0.2) mg/dL Indirect Bilirubin (0.0-1.2) mg/dL AST (13-39) Units/L ALT (7-52) Units/L Alkaline Phosphatase (34-104) Units/L Ammonia 86 H (16-53) mcmol/L Troponin I (< 0.04) ng/mL B-Natriuretic Peptide (Less than 100) pg/mL Serum Total Protein (6.4-8.9) g/dL Albumin (3.5-5.7) g/dL Globulin (2.4-3.5) g/dL Albumin/Globulin Ratio (1.1-2.2) - Radiology Data Radiology results reviewed: Yes I reviewed the patient's radiology results. Chest X-Ray 01/01/19 22:06 IMPRESSION: Persistent pulmonary edema with increased right-sided effusion. Left-sided effusion is unchanged. D/ / Joseph Pemberton MD / Joseph Pemberton MD Interpreting Provider: Joseph Pemberton MD Abdomen/Pelvis CT 01/02/19 00:45 IMPRESSION: 1. Diverticulosis. Diverticulitis cannot be excluded in the presence of ascites. 2. Cirrhosis and portal hypertension. 3. Retroperitoneal soft tissue likely represents retroperitoneal fibrosis. 4. Persistent bibasilar pleuroparenchymal disease. D/ / Aiden Moffett MD / Aiden Moffett MD Interpreting Provider: Aiden Moffett MD - EKG Data EKG #1 EKG attestation: Yes I reviewed and interpreted this EKG. EKG results narrative: EKG shows a normal sinus rhythm with ventricular rate of 88. No ST segment elevation or depression. No arrhythmia or ectopy. Nonspecific diffuse T-wave flattening. Critical Care Time Critical Care Time: No Attestation Statement - Attestation Attestation: I, Vinnie Gomez MD, personally evaluated this patient and discussed their management with the midlevel provicer, PAC/TONGUE AND GROOVE MACHINE FEEDER. I reviewed the midlevel provider's note and agree with the documented findings, medical decision making, and plan of care. 58-year-old male presents to the emergency department with a complaint of increased shortness of breath for the past day or 2. No cough or fever. No chest pain. Some increased swelling of his abdomen and ankles. History of CHF. On examination patient is a well-developed obese male in no acute distress. He is alert and oriented 3. There is no cyanosis or diaphoresis. Breath sounds are decreased but equal bilaterally. Heart regular rate and rhythm. Abdomen soft and nontender with normal bowel sounds. One plus pedal edema bilaterally. Labs reviewed. Chest x-ray shows persistent pulmonary edema with increased pleural effusion. EKG shows normal sinus rhythm with no acute ischemic changes. The hospitalist, Dr. Mueller, was consulted and accepted admission of the patient.
[2019-01-02] MEDS ORDERED: Naloxone 0.4 MG/ML INJ IVP PRN (05:53)
[2019-01-02] MEDS ORDERED: D5% in Water 1,000 ML IVC PRN (06:52)
[2019-01-02] MEDS ORDERED: *HR* Dextrose 50 % in Water (Syg) 50 ML SYRINGE IVP PRN (06:52)
[2019-01-02] MEDS ORDERED: Dextrose Gel 15 GM/37.5 ML TUBE PO PRN ×2 (06:52)
--- NOTE | 2019-01-02 07:09 | Internal Med History&Physical ---
Date of Encounter: 01/02/19 Time of Encounter: 06:10 Internal Medicine - H&P: HPI Chief complaint: Shortness of breath Admitted From: Emergency Dept Plans for Post Hospital Care: Home History of present illness: Mr. Fang is a 58 year old male Patient presented to the emergency room with shortness of breath that began 2 days ago. He also had associated weakness and abdominal distention and lower extremity edema. He has a history of CHF, liver cirrhosis, CLL and diabetes. He has had shortness of breath that is particularly worse with inspiration. In the emergency room patient vital signs were stable, CBC showed a hemoglobin of 8.2, and BMP revealed a glucose of 250. Patient is elevated total bilirubin of 2.0 with an indirect bilirubin of 1.6. Patient's initial troponin was undetectable. Chest x-ray revealed pulmonary edema with a right-sided effusion and the left-sided effusion. CT abdomen and pelvis revealed cirrhosis, diverticulosis but no ascites was noted. EKG was negative for ischemia. He bec omes hypoxic with exertion. He was given 40 mg IV Lasix and sent to the medical floor for further management. Upon my evaluation, patient is resting comfortably in the hospital bed in no acute distress. He is wearing his CPAP machine. He denies chest pain, bowel pain, nausea, vomiting, diarrhea and constipation. He has noted abdominal distention for the last 4-5 days. He has required paracentesis but the last time was about 8 months ago. He denies requiring a thoracentesis. He is a full code. Past Med Surg Social Fam HX - Past Medical History Medical history: cancer, cirrhosis, CHF, COPD, diabetes, GERD, hyperlipidemia, hypertension, kidney stones, myocardial infarction Additional medical history: morbid obesity with BMI of 45-49 adult. history of colon polyps. stomach polyp removed. esophageal varicies banded. chronic lymphatic leukemia Psychiatric history: depression - Past Surgical History Surgical History: LE stent(s) Additional surgical history: 3 cardiac stents. left knee. Hernia repair. Kidney stones. esophageal varicies. stomach polyp removed and clamp placed - Social History Smoking Status: Former smoker Smokeless Tobacco Status: Yes Alcohol use: none Drug use: none - Family History Mother Family Member Ethnicity: Non- Living Status: Hx Family Respiratory Disorders: Yes (COPD) Father Family Member Ethnicity: Non- Living Status: Hx Family Cancer: Yes (Small cell lung & Throat) Brother Family Member Ethnicity: Non- Living Status: Sister Family Member Ethnicity: Non- Living Status: Hx Family Respiratory Disorders: Yes (COPD) Internal Medicine - H&P: Meds ALPRAZolam [Xanax 1 MG Tablet] 1 mg PO BID PRN 05/09/15 [History] Atorvastatin Calcium [Lipitor] 20 mg PO HS 05/09/15 [History] Metformin HCl [Glucophage] 1,000 mg PO BID 05/09/15 [History] Oxygen 3 l NS HS 03/26/16 [History] Spironolactone [Aldactone] 100 mg PO DAILY 03/26/16 [History] OxyCODONE/APAP 10/325 [Percocet 10/325 MG] 1 tab PO Q6H PRN 07/30/16 [History] Insulin Glargine,Hum.rec.anlog [Lantus Solostar] 50 unit SQ BID 12/24/16 [History] Gabapentin [Neurontin] 300 mg PO BID 07/15/17 [History] Sucralfate [Carafate] 1 gm PO BID 03/09/18 [History] Lactulose [Kristalose] 15 gm PO TID 03/26/18 [History] Pantoprazole Sodium [Protonix] 40 mg PO DAILY 03/26/18 [History] Insulin Regular, Human [Novolin R] 0 unit SQ TIDWM PRN 05/24/18 [History] Furosemide [Lasix] 40 mg PO BIDDIURETIC #60 tablet 05/27/18 [Rx] Metoprolol [Lopressor] 50 mg PO BID 07/07/18 [History] Ibrutinib [Imbruvica] 420 mg PO DAILY #30 tablet 10/06/18 [Rx] Prochlorperazine Maleate [Compazine] 1 tab PO Q6HR PRN #30 tablet 10/21/18 [Rx] Levothyroxine [Synthroid] 125 mcg PO 0630 01/02/19 [History] Allergy/AdvReac Type Severity Reaction Status Date / Time naproxen Allergy Mild Hives Verified 01/01/19 22:44 rituximab Allergy Mild Hives Verified 01/01/19 22:44 JUAN RAMON Inhibitors AdvReac Mild NECK PAIN Verified 01/01/19 22:44 cefdinir AdvReac Mild Dizziness Verified 01/01/19 22:44 hydrocodone AdvReac Mild Vomiting Verified 01/01/19 22:44 levofloxacin AdvReac Mild Dizziness Verified 01/01/19 22:44 ramipril [From Altace] AdvReac Mild NECK PAIN Verified 01/01/19 22:44 tramadol AdvReac Mild Nausea Verified 01/01/19 22:44 doxycycline AdvReac Vomiting Verified 01/01/19 22:44 All Systems PM: A 10-system review of systems was performed and is negative for pertinent findings except as documented above in the HPI. - Constitutional Vitals: Temp Pulse Resp BP Pulse Ox 98.7 F 93 17 128/70 97 01/02/19 04:32 01/02/19 04:32 01/02/19 04:32 01/02/19 04:32 01/02/19 04:32 General appearance: Present: cooperative, pleasant, no acute distress, answers questions appropriately Exam: - - Head Head exam: Present: normal inspection - Eye Eye exam: Present: normal appearance - Respiratory Respiratory exam: Present: decreased breath sounds, CTAB. Absent: rales, respiratory distress, wheezes - Cardiovascular Cardiovascular exam: Present: RRR. Absent: diastolic murmur, systolic murmur - GI/Abdominal GI/Abdominal exam: Present: distended, normal bowel sounds, soft. Absent: tenderness - Extremities Exam Extremities exam: Present: pedal edema, warm, radial pulses palpable and symmetrical. Absent: tenderness Additional comments: 2+ pitting edema - Neurological Exam Neurological exam: Present: no focal deficits, strengths equal and symetr throughout. Absent: motor sensory deficit, facial droop, speech deficit - Skin Skin exam: Present: dry, normal color, warm Internal Med - H&P Results - Labs CBC & Chem 7: 01/01/19 22:24 01/01/19 22:24 Labs: Short CBC 01/01/19 Range/Units 22:24 WBC 4.3 (4.3-11.1) K/mcL Hgb 8.2 L (12.9-16.9) g/dL Hct 28.8 L (37.5-50.1) % Plt Count 52 L (140-400) K/mcL Neutrophils # 2.7 (1.6-8.9) K/mcL BMP 01/01/19 22:24 Sodium 140 Potassium 3.7 Chloride 98 Carbon Dioxide 35 H BUN 11 Creatinine 1.11 Glucose 250 H Calcium 8.8 Cardiac Enzymes 01/01/19 Range/Units 22:24 Troponin I < 0.03 (< 0.04) ng/mL Liver Function 01/01/19 01/02/19 Range/Units 22:24 01:04 Total Bilirubin 2.0 H 1.9 H (0.3-1.0) mg/dL Direct Bilirubin 0.4 H 0.4 H (0.0-0.2) mg/dL AST 13 13 (13-39) Units/L ALT 10 10 (7-52) Units/L Alkaline Phosphatase 75 71 (34-104) Units/L Albumin 3.9 3.9 (3.5-5.7) g/dL - Impressions ITS Impressions Chest X-Ray 01/01/19 22:06 IMPRESSION: Persistent pulmonary edema with increased right-sided effusion. Left-sided effusion is unchanged. D/ / Joseph Pemberton MD / Joseph Pemberton MD Interpreting Provider: Joseph Pemberton MD Abdomen/Pelvis CT 01/02/19 00:45 IMPRESSION: 1. Diverticulosis. Diverticulitis cannot be excluded in the presence of ascites. 2. Cirrhosis and portal hypertension. 3. Retroperitoneal soft tissue likely represents retroperitoneal fibrosis. 4. Persistent bibasilar pleuroparenchymal disease. D/ / Aiden Moffett MD / Aiden Moffett MD Interpreting Provider: Aiden Moffett MD - Assessment and Plan (1) Pleural effusion Current Visit: Yes Status: Acute Assessment and plan: Patient has bilateral pleural effusions as seen on imaging. Diminished breath sounds bilaterally. Patient received a 40mg dose of lasix in the ER. Currently on home CPAP machine. Continue IV lasix Oxygen supplementation as needed Bedside pulse ox Strict I's & O's Daily weights (2) CLL (chronic lymphocytic leukemia) Current Visit: No Status: Chronic Assessment and plan: Patient has history of CLL, last documentation from oncology is from 11/24/18, suppose to follow up with medical oncology in 2 months from that date. Management as per oncology (3) Cirrhosis Current Visit: No Status: Chronic Assessment and plan: Secondary to long-standing diabetes. Follows with Dr. Masters. No ascites on CT of abdomen. Continue home meds when varified. Qualifiers: Hepatic cirrhosis type: unspecified hepatic cirrhosis Ascites presence: with ascites Qualified Code(s): K74.60 - Unspecified cirrhosis of liver; R18.8 - Other ascites (4) Type 2 diabetes mellitus Current Visit: No Status: Chronic Assessment and plan: Patient is an insulin dependent diabetic Monitor sugars ACHS Diabetic diet Low dose insulin sliding scale as needed Hold home meds. Qualifiers: Diabetes mellitus care home insulin use: with intermediate accountant use Diabetes mellitus complication status: with hyperglycemia Qualified Code(s): E11.65 - Type 2 diabetes mellitus with hyperglycemia; Z79.4 - shelter (current) use of insulin (5) DVT prophylaxis Current Visit: No Status: Acute Assessment and plan: SCDs - Time Spent With Patient Total time spent is greater than 50% in coordination of care (as documented) at patient's floor/unit and/or counseling patient: Greater than 35 minutes
[2019-01-02] MEDS: IBRUTINIB 420 MG PO SCH (08:29)
[2019-01-02] MEDS: Furosemide 40 MG/4 ML VIAL IVP SCH (08:33)
[2019-01-02] MEDS: Sucralfate 1 GM TABLET PO SCH ×2 (08:33→20:22)
[2019-01-02] MEDS: Lactulose Oral Soln 20 GM/30 ML UDC PO SCH ×3 (08:33→20:22)
[2019-01-02 09:33] LABS: Hemoglobin 8.3 g/dL (12.9-16.9); Mean Corpuscular HGB Conc 28.6 g/dL (31.6-35.5); Mean Corpuscular Hemoglobin 26.1 pg (28.0-33.3); Mean Corpuscular Volume 91.2 fL (83.0-100.0); Mean Platelet Volume 11.9 fL (9.4-12.4); Red Blood Count 3.18 M/mcL (4.19-5.50); Red Cell Distribution Width 15.3 % (11.5-14.5)
[2019-01-02 09:35] LABS: Platelet Count 52 K/mcL (140-400)
[2019-01-02 09:53] LABS: Alanine Aminotransferase 10 Units/L (7-52); Albumin 3.8 g/dL (3.5-5.7); Albumin/Globulin Ratio 2.1 (1.1-2.2); Alkaline Phosphatase 66 Units/L (34-104); Aspartate Amino Transferase 13 Units/L (13-39); BUN/Creatinine Ratio 9 (6-26); Bilirubin,Total 2.5 mg/dL (0.3-1.0); Blood Urea Nitrogen 10 mg/dL (6-20); Calcium 8.9 mg/dL (8.6-10.3); Carbon Dioxide 38 mEq/L (23-29); Chloride 95 mEq/L (98-107); Globulin 1.8 g/dL (2.4-3.5); Glucose 195 mg/dL (70-105); Osmolality,Calculated 296 (280-300); Potassium 3.6 mEq/L (3.5-5.1); Sodium 141 mEq/L (136-145); Total Protein 5.6 g/dL (6.4-8.9); eGFR For Non-African Americans > 60 (> 60)
--- NOTE | 2019-01-02 09:56 | Event Note ---
Date of Encounter: 01/02/19 Time of Encounter: 08:00 H&P reviewed. Patient with cirrhosis and heart failure was admitted for progressive dyspnea associated with bilateral pleural effusion. Takes lasix 80mg QD and Aldactone 100mg QD and follows with GI for cirrhosis. On 2L O2 at home and currently requiring 3L. Will repeat Echo and consult IR for thoracentesis tomorrow.
[2019-01-02] MEDS ORDERED: ALPRAZolam 1 MG TABLET PO PRN (09:58)
[2019-01-02] MEDS ORDERED: Insulin LISPRO 300 UNITS/3 ML VIAL SQ SCH ×2 (12:00→21:00)
[2019-01-02] MEDS: Insulin LISPRO 300 UNITS/3 ML VIAL SQ SCH ×2 (12:48→17:27)
[2019-01-02] MEDS: Gabapentin 300 MG CAPSULE PO SCH (20:22)
[2019-01-03 05:51] LABS: Red Blood Count 3.17 M/mcL (4.19-5.50)
[2019-01-03 05:53] LABS: Hematocrit 28.6 % (37.5-50.1); Hemoglobin 8.1 g/dL (12.9-16.9); Immature Platelets 7.8 % (1.1-6.1); Mean Corpuscular HGB Conc 28.3 g/dL (31.6-35.5); Mean Corpuscular Hemoglobin 25.6 pg (28.0-33.3); Mean Corpuscular Volume 90.2 fL (83.0-100.0); Mean Platelet Volume 11.2 fL (9.4-12.4); Red Cell Distribution Width 15.3 % (11.5-14.5)
[2019-01-03 06:06] LABS: INR 1.1; Prothrombin Time 12.4 Seconds (9.4-12.1)
[2019-01-03 06:12] LABS: BUN/Creatinine Ratio 12 (6-26); Blood Urea Nitrogen 14 mg/dL (6-20); Calcium 9.6 mg/dL (8.6-10.3); Carbon Dioxide 39 mEq/L (23-29); Chloride 94 mEq/L (98-107); Glucose 207 mg/dL (70-105); Magnesium 1.9 mg/dL (1.6-2.6); Osmolality,Calculated 299 (280-300); Potassium 3.7 mEq/L (3.5-5.1); Sodium 141 mEq/L (136-145); eGFR For Non-African Americans > 60 (> 60)
[2019-01-03 07:21] VITALS: BP 124/57
[2019-01-03] MEDS: Furosemide 40 MG/4 ML VIAL IVP SCH (08:44)
[2019-01-03] MEDS: Lactulose Oral Soln 20 GM/30 ML UDC PO SCH (08:44)
[2019-01-03] MEDS: Sucralfate 1 GM TABLET PO SCH (08:45)
[2019-01-03] MEDS: IBRUTINIB 420 MG PO SCH (08:45)
[2019-01-03] MEDS: Insulin LISPRO 300 UNITS/3 ML VIAL SQ SCH (08:45)
[2019-01-03] MEDS: Gabapentin 300 MG CAPSULE PO SCH (08:45)
[2019-01-03] MEDS ORDERED: Perflutren Lipid Microsphere 1.3 ML in 0.9 % Sodium Chloride 8.7 ML IVP ONE (08:49)
--- NOTE | 2019-01-03 10:12 | Procedure Note ---
Date of procedure: 01/03/19 (09:50) Pre-op diagnosis: Left pleural effusion Post-op diagnosis: same Procedure: A time-out was completed verifying correct patient, procedure, site, positioning, and special equipment if applicable. The patients left side was prepped and draped in a sterile manner after the appropriate infiltration level was confirmed by ultrasound. 1% lidocaine was used anesthetize the surrounding skin. A finder needle was then used to locate fluid and clear yellow fluid was obtained. A 10-blade scalpel used to make the incision. The thoracentesis catheter was then threaded without difficulty. The patient had 1,500cc of dark red fluid removed. Attending Dr. Hassan was present for the entire procedure. A post-procedure chest x-ray was ordered and the fluid will be sent for several studies. Estimated Blood Loss: 0 cc The patient tolerated the procedure well and there were no complications. Anesthesia: local Surgeon: Coy Murphy Was there an pharmacy assistant present: No Milling Machine Operator Gear: Gregorio Hassan Estimated blood loss (cc): 0 Specimen: 1,500cc dark red pleural fluid Pathology: other Condition: stable Disposition: floor
--- NOTE | 2019-01-03 11:30 | Discharge Summary ---
- NOTES TO OUTPATIENT PROVIDER Notes to Outpatient Provider: Follow up with GI/PCP for possibly setting up for interval thoracentesis Orders not resulted at time of discharge: Pending orders 01/01/19 22:06 ECG 12 lead ECG [ECG] Stat Date of Encounter: 01/03/19 Time of Encounter: 09:15 - Discharge Diagnosis (1) Pleural effusion Priority: Primary Status: Acute (2) Thrombocytopenia Priority: Secondary Status: Chronic (3) Cirrhosis Priority: Secondary Status: Chronic Qualifiers: Hepatic cirrhosis type: unspecified hepatic cirrhosis Ascites presence: with ascites Qualified Code(s): K74.60 - Unspecified cirrhosis of liver; R18.8 - Other ascites (4) Type 2 diabetes mellitus Priority: Secondary Status: Chronic Qualifiers: 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 Fang is a 58 year old male with history of heart failure and cirrhosis who was admitted for symptomatic L>R pleural effusion. No signs and symptoms of PNA. Claims compliance to lasix and aldactone at home. Pt' s symptom significantly improved after left thoracentesis, draining 1.5 L of fluid. He will need to follow up with PCP/GI to establish interval thoracentesis, TIPPS, or PleruX catheter insertion as outpatient. Discharge discussed with: patient, nurse - Time Spent with Patient Total time spent providing and/or coordinating discharge services: 28mins - Discharge Medications Prescriptions: Continue ALPRAZolam [Xanax 1 MG Tablet] 1 mg PO BID PRN PRN Reason: Anxiety Atorvastatin Calcium [Lipitor] 20 mg PO HS Metformin HCl [Glucophage] 1,000 mg PO BID Oxygen 3 l NS HS Spironolactone [Aldactone] 100 mg PO DAILY OxyCODONE/APAP 10/325 [Percocet 10/325 MG] 1 tab PO Q6H PRN PRN Reason: Mild Pain Insulin Glargine,Hum.rec.anlog [Lantus Solostar] 50 unit SQ BID Gabapentin [Neurontin] 300 mg PO BID Sucralfate [Carafate] 1 gm PO BID Pantoprazole Sodium [Protonix] 40 mg PO DAILY Lactulose [Kristalose] 15 gm PO TID Insulin Regular, Human [Novolin R] 0 unit SQ TIDWM PRN PRN Reason: sliding scale Furosemide [Lasix] 40 mg PO BIDDIURETIC #60 tablet Metoprolol [Lopressor] 50 mg PO BID Ibrutinib [Imbruvica] 420 mg PO DAILY #30 tablet Prochlorperazine Maleate [Compazine] 1 tab PO Q6HR PRN #30 tablet PRN Reason: Nausea Levothyroxine [Synthroid] 125 mcg PO 0630 Home Medications: ALPRAZolam [Xanax 1 MG Tablet] 1 mg PO BID PRN 05/09/15 [History] Atorvastatin Calcium [Lipitor] 20 mg PO HS 05/09/15 [History] Metformin HCl [Glucophage] 1,000 mg PO BID 05/09/15 [History] Oxygen 3 l NS HS 03/26/16 [History] Spironolactone [Aldactone] 100 mg PO DAILY 03/26/16 [History] OxyCODONE/APAP 10/325 [Percocet 10/325 MG] 1 tab PO Q6H PRN 07/30/16 [History] Insulin Glargine,Hum.rec.anlog [Lantus Solostar] 50 unit SQ BID 12/24/16 [History] Gabapentin [Neurontin] 300 mg PO BID 07/15/17 [History] Sucralfate [Carafate] 1 gm PO BID 03/09/18 [History] Lactulose [Kristalose] 15 gm PO TID 03/26/18 [History] Pantoprazole Sodium [Protonix] 40 mg PO DAILY 03/26/18 [History] Insulin Regular, Human [Novolin R] 0 unit SQ TIDWM PRN 05/24/18 [History] Furosemide [Lasix] 40 mg PO BIDDIURETIC #60 tablet 05/27/18 [Rx] Metoprolol [Lopressor] 50 mg PO BID 07/07/18 [History] Ibrutinib [Imbruvica] 420 mg PO DAILY #30 tablet 10/06/18 [Rx] Prochlorperazine Maleate [Compazine] 1 tab PO Q6HR PRN #30 tablet 10/21/18 [Rx] Levothyroxine [Synthroid] 125 mcg PO 0630 01/02/19 [History] Allergies/Adverse Reactions: Allergy/AdvReac Type Severity Reaction Status Date / Time naproxen Allergy Mild Hives Verified 01/01/19 22:44 rituximab Allergy Mild Hives Verified 01/01/19 22:44 JUAN RAMON Inhibitors AdvReac Mild NECK PAIN Verified 01/01/19 22:44 cefdinir AdvReac Mild Dizziness Verified 01/01/19 22:44 hydrocodone AdvReac Mild Vomiting Verified 01/01/19 22:44 levofloxacin AdvReac Mild Dizziness Verified 01/01/19 22:44 ramipril [From Altace] AdvReac Mild NECK PAIN Verified 01/01/19 22:44 tramadol AdvReac Mild Nausea Verified 01/01/19 22:44 doxycycline AdvReac Vomiting Verified 01/01/19 22:44 Date of admission: 01/02/19 03:45 Primary care physician: Derick Ellis, - Constitutional Vitals: Temp Pulse Resp BP Pulse Ox 981 F H 84 16 124/57 100 01/03/19 07:17 01/03/19 07:17 01/03/19 07:17 01/03/19 07:17 01/03/19 07:17 General appearance: Present: cooperative, pleasant, no acute distress, answers questions appropriately Exam: General: Alert and oriented, not in acute distress. Cardiovascular:Normal S1 & S2, No JVD. Pulse regular. Lungs: slightly diminished breath sound on L lung base but significantly better than yesterday. Dressing c/d/i Abdomen:Soft, non-tender, no rigidity. Extremities:No deformity Neurological:Normal cognition and motor skills. Non-focal - Patient Status Disposition: Home, Self-Care Condition: Good - Discharge Instructions Additional Instructions: Follow-up appointments: If there is not an appointment listed below, please call your physician and schedule a follow-up appointment. If you have congestive heart failure and your symptoms return, make an appointment with your physician. Medication List: Carry an up to date list of medications you are taking at all time. We have given you an updated medication list including any new medications that you have been prescribed. Please provide that list to your primary provider Symptoms: If your condition changes or you experience any of the following symptoms, notify your physician immediately: Unusual or worsening pain, fever, persistent nausea and vomiting, bleeding, increase in swelling (especially in your legs), sudden weight gain, extreme dizziness, chest pain, increased drainage or redness from a wound or incision. Go to the emergency department if you experience a problem with breathing. Weights: If you have a history of swelling or shortness of breath, weigh yourself daily and notify your physician if you have a weight gain of two or more pounds in one day or 5 or more pounds in a week. If you experience any of the warning signs for stroke: Sudden numbness or weakness of the face, arm or leg; especially on one side of the body, sudden confusion, trouble speaking or understanding, sudden trouble seeing in one or both eyes, sudden trouble walking, dizziness, loss of balance or coordination, sudden sever headache with no cause; Call 911 or go to the emergency room. Stroke is a medical emergency. Some risk factors for stroke: Age, cigarette smoking, diabetes, excessive alcohol consumption, family history, high blood pressure, overweight, physical inactivity, prior stroke, heart attack, diagnosis of carotid artery stenosis or other artery disease. If you smoke, STOP: Smoking or tobacco use significantly increases your risk of heart and lung disease. Your chance of disease greatly increases if you continue to smoke. For more information, call the [place] tobacco quit line for smoking cessation 3-767-LVBQ-NOW ( ) Continue lasix and aldactone Follow up with GI for possibly setting up for interval thoracentesis vs. TIPPS. vs. PleurX catheter insertion - Diet and Activity Activity: resume usual activities as tolerated Diet: low salt diet
--- NOTE | 2019-01-03 16:17 | Electrocardiograph Report ---
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
== END 2019-01-03 12:45 | disposition home or self-care (01) ==
LOC: EMEROOARM 21:54 → 2NENU 21:54 → SUATTDRO 01-02 03:45 → 2NENU 01-02 04:09
PROVIDERS: ADMIT Pediatrics; ATTEND Internal Medicine

== ENCOUNTER 2019-09-12 08:53 | Inpatient (IN) ==
[2019-09-12] MEDS ORDERED: Albuterol 2.5 MG/3 ML NEBULIZER IH ONE (09:26)
[2019-09-12] MEDS ORDERED: 0.9 % Sodium Chloride 500 ML IVC SCH (09:30)
[2019-09-12] MEDS ORDERED: Insulin LISPRO 300 UNITS/3 ML VIAL SQ ONE ×2 (10:37→11:00)
[2019-09-12] MEDS ORDERED: Heparin 1,000 UNITS/500 mL 500 ML ONE ×3 (10:40→13:17)
[2019-09-12] MEDS ORDERED: *HR* FentaNYL (PF) 100 MCG/2 ML VIAL ONE (11:35)
[2019-09-12] MEDS ORDERED: *HR* Midazolam HCl 2 MG/2 ML VIAL ONE (11:49)
[2019-09-12] MEDS ORDERED: Isovue-300 50ML VIAL IVP ONE ×2 (13:49→13:50)
[2019-09-12] MEDS ORDERED: EPHEDrine 50 MG/ML VIAL IVP ONE (14:09)
[2019-09-12] MEDS ORDERED: Lidocaine 2% Syringe 100 MG/5 ML IV ONE (14:09)
[2019-09-12] MEDS ORDERED: Ondansetron 4 MG/2 ML VIAL IVP ONE (14:09)
[2019-09-12] MEDS ORDERED: *HR* Metoprolol 5 MG/5 ML VIAL IVP ONE (14:09)
[2019-09-12] MEDS ORDERED: *HR* Succinylcholine 200 MG/10 ML VIAL IVP ONE (14:09)
[2019-09-12] MEDS ORDERED: *HR* Propofol 200 MG/20 ML VIAL IVP ONE (14:09)
[2019-09-12] MEDS ORDERED: *HR* Etomidate 20 MG/10 ML AMPUL IVP ONE (14:09)
[2019-09-12] MEDS ORDERED: Lidocaine -MPF 4% 5 ML AMPUL INFILT ONE (14:09)
[2019-09-12] MEDS ORDERED: 0.9 % Sodium Chloride 1,000 ML ONE (14:40)
[2019-09-12] MEDS ORDERED: Naloxone 0.4 MG/ML INJ IVP PRN (14:46)
[2019-09-12] MEDS ORDERED: Dextrose Gel 15 GM/37.5 ML TUBE PO PRN ×2 (14:49)
[2019-09-12] MEDS ORDERED: *HR* Dextrose 50 % in Water (Syg) 50 ML SYRINGE IVP PRN (14:49)
[2019-09-12] MEDS ORDERED: D5% in Water 1,000 ML IVC PRN (14:49)
[2019-09-12] MEDS ORDERED: Insulin DETEMIR 100 UNIT/ML X5UNITS SQ ONE ×2 (15:27→18:02)
[2019-09-12 17:30] LABS: Basophils % 0.4 %; Eosinophils % 0.4 %; Hematocrit 28.9 % (37.5-50.1); Hemoglobin 8.9 g/dL (12.9-16.9); Immature Granulocytes % 1.1 % (0-4); Immature Platelets 2.6 % (1.1-6.1); Lymphocytes # 0.3 K/mcL (0.6-4.6); Lymphocytes % 11.9 %; Mean Corpuscular HGB Conc 30.8 g/dL (31.6-35.5); Mean Corpuscular Hemoglobin 28.5 pg (28.0-33.3); Mean Corpuscular Volume 92.6 fL (83.0-100.0); Mean Platelet Volume 9.5 fL (9.4-12.4); Monocytes # 0.1 K/mcL (0.0-1.3); Monocytes % 3.3 %; Neutrophils # 2.2 K/mcL (1.6-8.9); Red Blood Count 3.12 M/mcL (4.19-5.50); Red Cell Distribution Width 17.6 % (11.5-14.5); Segmented Neutrophils % 82.9 %; White Blood Count 2.7 K/mcL (4.3-11.1)
[2019-09-12 17:31] LABS: Platelet Count 61 K/mcL (140-400)
[2019-09-12 17:34] LABS: INR 1.1; Prothrombin Time 12.3 Seconds (9.4-12.1)
[2019-09-12 17:47] LABS: BUN/Creatinine Ratio 13 (6-26); Blood Urea Nitrogen 15 mg/dL (6-20); Calcium 8.3 mg/dL (8.6-10.3); Carbon Dioxide 29 mEq/L (23-29); Chloride 98 mEq/L (98-107); Glucose 401 mg/dL (70-105); Osmolality,Calculated 304 (280-300); Potassium 4.1 mEq/L (3.5-5.1); Sodium 138 mEq/L (136-145); eGFR For African Americans > 60 (> 60); eGFR For Non-African Americans > 60 (> 60)
[2019-09-12 17:48] LABS: Albumin 3.7 g/dL (3.5-5.7); Albumin/Globulin Ratio 2.3 (1.1-2.2); Bilirubin,Direct 0.3 mg/dL (0.0-0.2); Bilirubin,Indirect 1.3 mg/dL (0.0-1.0); Bilirubin,Total 1.6 mg/dL (0.3-1.0); Globulin 1.6 g/dL (2.4-3.5); Total Protein 5.3 g/dL (6.4-8.9)
[2019-09-12] MEDS: Insulin LISPRO 300 UNITS/3 ML VIAL SQ SCH (17:59)
[2019-09-12] MEDS ORDERED: Insulin LISPRO 300 UNITS/3 ML VIAL SQ SCH (18:00)
[2019-09-12] MEDS ORDERED: ALPRAZolam 0.5 MG TABLET PO PRN (18:01)
[2019-09-12] MEDS: Lactulose Oral Soln 20 GM/30 ML UDC PO SCH (20:17)
[2019-09-13] MEDS: Insulin LISPRO 300 UNITS/3 ML VIAL SQ SCH ×4 (00:02→20:12)
[2019-09-13 04:48] LABS: Albumin 3.6 g/dL (3.5-5.7); Albumin/Globulin Ratio 2.4 (1.1-2.2); Bilirubin,Direct 0.3 mg/dL (0.0-0.2); Bilirubin,Indirect 1.7 mg/dL (0.0-1.0); Globulin 1.5 g/dL (2.4-3.5); Total Protein 5.1 g/dL (6.4-8.9)
[2019-09-13 04:51] LABS: Albumin 3.5 g/dL (3.5-5.7); BUN/Creatinine Ratio 14 (6-26); Blood Urea Nitrogen 14 mg/dL (6-20); Calcium 8.7 mg/dL (8.6-10.3); Carbon Dioxide 27 mEq/L (23-29); Chloride 98 mEq/L (98-107); Glucose 310 mg/dL (70-105); Osmolality,Calculated 296 (280-300); Phosphorous 2.1 mg/dL (2.7-4.5); Potassium 4.2 mEq/L (3.5-5.1); Sodium 137 mEq/L (136-145); eGFR For African Americans > 60 (> 60); eGFR For Non-African Americans > 60 (> 60)
[2019-09-13] MEDS ORDERED: *HR* OxyCODONE/APAP 10/325 TABLET PO PRN ×2 (08:31→12:20)
[2019-09-13] MEDS ORDERED: Nitroglycerin 0.4 MG TAB.SUBL SL PRN ×2 (08:31→12:20)
[2019-09-13] MEDS: Lactulose Oral Soln 20 GM/30 ML UDC PO SCH ×3 (08:36→20:11)
[2019-09-13] MEDS: Insulin DETEMIR 100 UNIT/ML X5UNITS SQ SCH ×3 (08:38→20:11)
[2019-09-13] MEDS ORDERED: D5% in Water 1,000 ML IVC PRN ×2 (08:45→12:20)
[2019-09-13] MEDS ORDERED: *HR* Dextrose 50 % in Water (Syg) 50 ML SYRINGE IVP PRN ×2 (08:45→12:20)
[2019-09-13] MEDS ORDERED: Dextrose Gel 15 GM/37.5 ML TUBE PO PRN ×4 (08:45→12:20)
[2019-09-13] MEDS ORDERED: Sucralfate 1 GM TABLET PO SCH (09:00)
[2019-09-13] MEDS ORDERED: Gabapentin 300 MG CAPSULE PO SCH (09:00)
[2019-09-13 10:13] LABS: INR 1.1; Prothrombin Time 12.4 Seconds (9.4-12.1)
[2019-09-13 10:26] LABS: Eosinophils % 0.2 %; Hematocrit 31.2 % (37.5-50.1); Hemoglobin 9.6 g/dL (12.9-16.9); Immature Granulocytes % 0.5 % (0-4); Lymphocytes # 0.5 K/mcL (0.6-4.6); Lymphocytes % 11.2 %; Mean Corpuscular HGB Conc 30.8 g/dL (31.6-35.5); Mean Corpuscular Hemoglobin 28.2 pg (28.0-33.3); Mean Corpuscular Volume 91.8 fL (83.0-100.0); Monocytes # 0.3 K/mcL (0.0-1.3); Monocytes % 6.7 %; Neutrophils # 3.4 K/mcL (1.6-8.9); Red Cell Distribution Width 17.4 % (11.5-14.5); Segmented Neutrophils % 81.4 %
[2019-09-13 10:27] LABS: Platelet Count 65 K/mcL (140-400); White Blood Count 4.2 K/mcL (4.3-11.1)
[2019-09-13 10:28] LABS: Platelet Estimate Decreased (Normal)
[2019-09-13] MEDS ORDERED: Insulin LISPRO 300 UNITS/3 ML VIAL SQ SCH ×2 (11:30→21:00)
[2019-09-13] MEDS ORDERED: Naloxone 0.4 MG/ML INJ IVP PRN (12:20)
[2019-09-13] MEDS ORDERED: ALPRAZolam 0.5 MG TABLET PO PRN (12:20)
[2019-09-13] MEDS: Gabapentin 300 MG CAPSULE PO SCH ×2 (14:19→20:11)
[2019-09-13] MEDS ORDERED: Bumetanide 1 MG TABLET PO SCH (17:00)
[2019-09-13] MEDS: Bumetanide 1 MG TABLET PO SCH (17:38)
[2019-09-13] MEDS: Sucralfate 1 GM TABLET PO SCH (20:10)
[2019-09-13] MEDS ORDERED: Insulin DETEMIR 100 UNIT/ML X5UNITS SQ SCH (21:00)
[2019-09-13] MEDS ORDERED: Insulin Human Regular 10 UNIT in 0.9 % Sodium Chloride 10 ML IV ONE (21:56)
[2019-09-14] MEDS ORDERED: Insulin Human Regular 10 UNIT in 0.9 % Sodium Chloride 10 ML IV ONE (00:47)
[2019-09-14] MEDS ORDERED: Insulin DETEMIR 100 UNIT/ML X5UNITS SQ ONE (02:53)
[2019-09-14] MEDS: Bumetanide 1 MG TABLET PO SCH ×2 (08:11→17:20)
[2019-09-14] MEDS: Gabapentin 300 MG CAPSULE PO SCH ×3 (08:12→20:57)
[2019-09-14] MEDS: Lactulose Oral Soln 20 GM/30 ML UDC PO SCH ×3 (08:12→20:58)
[2019-09-14] MEDS: Sucralfate 1 GM TABLET PO SCH ×2 (08:12→20:57)
[2019-09-14] MEDS: Insulin DETEMIR 100 UNIT/ML X5UNITS SQ SCH ×2 (08:12→20:58)
[2019-09-14] MEDS: Insulin LISPRO 300 UNITS/3 ML VIAL SQ SCH ×5 (08:13→21:00)
[2019-09-14 09:30] LABS: INR 1.1; Prothrombin Time 12.8 Seconds (9.4-12.1)
[2019-09-14 09:39] LABS: Basophils % 0.2 %; Eosinophils # 0.1 K/mcL (0.0-0.6); Eosinophils % 1.5 %; Hematocrit 31.7 % (37.5-50.1); Hemoglobin 10.3 g/dL (12.9-16.9); Immature Granulocytes % 0.8 % (0-4); Lymphocytes # 0.4 K/mcL (0.6-4.6); Lymphocytes % 8.4 %; Mean Corpuscular HGB Conc 32.5 g/dL (31.6-35.5); Mean Corpuscular Hemoglobin 28.8 pg (28.0-33.3); Mean Corpuscular Volume 88.5 fL (83.0-100.0); Mean Platelet Volume 9.5 fL (9.4-12.4); Monocytes # 0.4 K/mcL (0.0-1.3); Monocytes % 9.2 %; Neutrophils # 3.8 K/mcL (1.6-8.9); Red Blood Count 3.58 M/mcL (4.19-5.50); Segmented Neutrophils % 79.9 %; White Blood Count 4.8 K/mcL (4.3-11.1)
[2019-09-14 09:40] LABS: Platelet Count 73 K/mcL (140-400)
[2019-09-14 09:41] LABS: Platelet Estimate Decreased (Normal)
[2019-09-14 09:48] LABS: Alanine Aminotransferase 38 Units/L (7-52); Albumin 3.6 g/dL (3.5-5.7); Albumin/Globulin Ratio 2.4 (1.1-2.2); Alkaline Phosphatase 143 Units/L (34-104); Aspartate Amino Transferase 47 Units/L (13-39); BUN/Creatinine Ratio 13 (6-26); Bilirubin,Total 2.8 mg/dL (0.3-1.0); Blood Urea Nitrogen 15 mg/dL (6-20); Calcium 9.1 mg/dL (8.6-10.3); Carbon Dioxide 29 mEq/L (23-29); Chloride 97 mEq/L (98-107); Globulin 1.5 g/dL (2.4-3.5); Glucose 280 mg/dL (70-105); Osmolality,Calculated 293 (280-300); Potassium 3.8 mEq/L (3.5-5.1); Sodium 136 mEq/L (136-145); Total Protein 5.1 g/dL (6.4-8.9); eGFR For African Americans > 60 (> 60); eGFR For Non-African Americans > 60 (> 60)
[2019-09-15] MEDS ORDERED: Insulin Human Regular 10 UNIT in 0.9 % Sodium Chloride 10 ML IV ONE (04:46)
[2019-09-15 08:18] LABS: Alanine Aminotransferase 44 Units/L (7-52); Albumin 3.3 g/dL (3.5-5.7); Albumin/Globulin Ratio 2.2 (1.1-2.2); Alkaline Phosphatase 193 Units/L (34-104); Aspartate Amino Transferase 48 Units/L (13-39); BUN/Creatinine Ratio 11 (6-26); Bilirubin,Direct 0.4 mg/dL (0.0-0.2); Bilirubin,Indirect 2.2 mg/dL (0.0-1.0); Bilirubin,Total 2.6 mg/dL (0.3-1.0); Blood Urea Nitrogen 12 mg/dL (6-20); Calcium 8.6 mg/dL (8.6-10.3); Carbon Dioxide 30 mEq/L (23-29); Chloride 98 mEq/L (98-107); Globulin 1.5 g/dL (2.4-3.5); Glucose 279 mg/dL (70-105); Osmolality,Calculated 292 (280-300); Potassium 3.7 mEq/L (3.5-5.1); Sodium 136 mEq/L (136-145); Total Protein 4.8 g/dL (6.4-8.9); eGFR For African Americans > 60 (> 60); eGFR For Non-African Americans > 60 (> 60)
[2019-09-15 08:21] LABS: INR 1.2; Prothrombin Time 13.2 Seconds (9.4-12.1)
[2019-09-15 08:22] LABS: Basophils % 0.3 %; Immature Granulocytes % 0.6 % (0-4)
[2019-09-15 08:24] LABS: Eosinophils # 0.1 K/mcL (0.0-0.6); Eosinophils % 2.2 %; Hematocrit 28.2 % (37.5-50.1); Immature Platelets 2.3 % (1.1-6.1); Lymphocytes # 0.4 K/mcL (0.6-4.6); Lymphocytes % 13.5 %; Mean Corpuscular HGB Conc 31.9 g/dL (31.6-35.5); Mean Corpuscular Hemoglobin 28.5 pg (28.0-33.3); Mean Corpuscular Volume 89.2 fL (83.0-100.0); Monocytes # 0.4 K/mcL (0.0-1.3); Monocytes % 11.9 %; Neutrophils # 2.3 K/mcL (1.6-8.9); Red Blood Count 3.16 M/mcL (4.19-5.50); Red Cell Distribution Width 17.8 % (11.5-14.5); Segmented Neutrophils % 71.5 %; White Blood Count 3.2 K/mcL (4.3-11.1)
[2019-09-15 08:34] LABS: Platelet Count 56 K/mcL (140-400)
[2019-09-15] MEDS: Bumetanide 1 MG TABLET PO SCH (09:22)
[2019-09-15] MEDS: Sucralfate 1 GM TABLET PO SCH (09:22)
[2019-09-15] MEDS: Gabapentin 300 MG CAPSULE PO SCH ×2 (09:22→13:52)
[2019-09-15] MEDS: Insulin DETEMIR 100 UNIT/ML X5UNITS SQ SCH (09:23)
[2019-09-15] MEDS: Lactulose Oral Soln 20 GM/30 ML UDC PO SCH ×2 (09:23→13:51)
[2019-09-15] MEDS: Insulin LISPRO 300 UNITS/3 ML VIAL SQ SCH ×4 (09:23→13:53)
[2019-09-15 11:57] VITALS: BP 109/59
== END 2019-09-15 16:45 | disposition home or self-care (01) | DRG 406 ==
LOC: ICNU 08:53 → INTRAD 08:53 → 3BNU 09-13 14:13
PROVIDERS: ADMIT Pediatrics; ATTEND Pediatrics

== ENCOUNTER 2019-09-20 10:08 | Observation (INO) ==
[2019-09-20] MEDS ORDERED: 0.9 % Sodium Chloride 500 ML IVC ONE (10:12)
[2019-09-20 10:45] LABS: Bilirubin,Urine Negative (Negative); Blood,Urine Negative (Negative); Clarity,Urine Clear (Clear); Color,Urine Yellow (Yellow); Glucose,Urine (UA) >=1000 mg/dL (Normal); Ketones,Urine Negative (Negative); Leukocyte Esterase,Urine Negative (Negative); Nitrite,Urine Negative (Negative); PH,Urine 6.5 pH Units (5.0-8.0); Protein,Urine Negative (Neg-Trace); Specific Gravity,Urine 1.024 (1.010-1.025); Urobilinogen,Urine Normal (Normal)
[2019-09-20 11:09] LABS: BUN/Creatinine Ratio 9 (6-26); Blood Urea Nitrogen 11 mg/dL (6-20); Calcium 8.6 mg/dL (8.6-10.3); Carbon Dioxide 32 mEq/L (23-29); Chloride 97 mEq/L (98-107); Glucose 403 mg/dL (70-105); Osmolality,Calculated 296 (280-300); Potassium 3.8 mEq/L (3.5-5.1); Sodium 135 mEq/L (136-145); eGFR For African Americans > 60 (> 60); eGFR For Non-African Americans > 60 (> 60)
[2019-09-20] MEDS ORDERED: cefTRIAXone 1,000 MG in Water for inj. (sterile) 10 ML IVP ONE (11:55)
[2019-09-20] MEDS ORDERED: Azithromycin 500 MG in 0.9 % Sodium Chloride 250 ML IVPB ONE (11:55)
[2019-09-20] MEDS ORDERED: Insulin Regular, Human 100 UNIT/ML SQ ONE (12:01)
[2019-09-20] MEDS ORDERED: Insulin Regular, Human 100 UNIT/ML IV ONE (12:01)
[2019-09-20] MEDS ORDERED: Insulin Human Regular 10 UNIT in 0.9 % Sodium Chloride 10 ML IV ONE (13:09)
[2019-09-20 13:36] LABS: Hematocrit 29.9 % (37.5-50.1); Mean Corpuscular Volume 90.9 fL (83.0-100.0); Red Blood Count 3.29 M/mcL (4.19-5.50)
[2019-09-20 13:37] LABS: Basophils % 0.3 %; Eosinophils # 0.1 K/mcL (0.0-0.6); Eosinophils % 2.4 %; Hemoglobin 9.4 g/dL (12.9-16.9); Immature Platelets 2.7 % (1.1-6.1); Lymphocytes # 0.4 K/mcL (0.6-4.6); Lymphocytes % 14.3 %; Mean Corpuscular HGB Conc 31.4 g/dL (31.6-35.5); Mean Corpuscular Hemoglobin 28.6 pg (28.0-33.3); Mean Platelet Volume 9.5 fL (9.4-12.4); Monocytes # 0.4 K/mcL (0.0-1.3); Monocytes % 13.3 %; Red Cell Distribution Width 17.8 % (11.5-14.5); Segmented Neutrophils % 68.7 %; White Blood Count 2.9 K/mcL (4.3-11.1)
[2019-09-20 13:38] LABS: Platelet Count 74 K/mcL (140-400)
[2019-09-20 13:40] LABS: Prothrombin Time 11.9 Seconds (9.4-12.1)
[2019-09-20 13:42] LABS: Alanine Aminotransferase 25 Units/L (7-52); Albumin 3.4 g/dL (3.5-5.7); Albumin/Globulin Ratio 1.9 (1.1-2.2); Alkaline Phosphatase 207 Units/L (34-104); Aspartate Amino Transferase 29 Units/L (13-39); Bilirubin,Direct 0.4 mg/dL (0.0-0.2); Bilirubin,Indirect 2.7 mg/dL (0.0-1.0); Bilirubin,Total 3.1 mg/dL (0.3-1.0); Globulin 1.8 g/dL (2.4-3.5); Total Protein 5.2 g/dL (6.4-8.9)
[2019-09-20] MEDS ORDERED: Naloxone 0.4 MG/ML INJ IVP PRN (13:52)
[2019-09-20] MEDS ORDERED: D5% in Water 1,000 ML IVC PRN (13:52)
[2019-09-20] MEDS ORDERED: *HR* Dextrose 50 % in Water (Syg) 50 ML SYRINGE IVP PRN (13:52)
[2019-09-20] MEDS ORDERED: Dextrose Gel 15 GM/37.5 ML TUBE PO PRN ×2 (13:52)
[2019-09-20 13:58] LABS: VBG HCO3 36 mEq/L (21-27); VBG PCO2 63 mmHg (41-51); VBG PH 7.36 pH Units (7.32-7.42); VBG PO2 97 mmHg (25-50)
[2019-09-20 14:09] LABS: Procalcitonin 0.15 ng/mL (0.00-0.15)
[2019-09-20 14:10] LABS: Vitamin B12 627 pg/mL (250-1100)
[2019-09-20] MEDS: Lactulose Oral Soln 20 GM/30 ML UDC PO SCH ×3 (16:14→20:58)
[2019-09-20] MEDS: Insulin LISPRO 300 UNITS/3 ML VIAL SQ SCH (17:58)
[2019-09-20] MEDS ORDERED: Insulin LISPRO 300 UNITS/3 ML VIAL SQ SCH (21:00)
[2019-09-20] MEDS ORDERED: ALPRAZolam 0.5 MG TABLET PO ONE (22:45)
[2019-09-20] MEDS: Gabapentin 300 MG CAPSULE PO SCH (23:07)
[2019-09-21 05:01] LABS: Immature Reticulocyte % 18.9 % (11.0-38.0); Retculocyte # 0.12 M/mcL (0.05-0.10); Reticulocyte % 4.3 % (1.6-2.8)
[2019-09-21 05:04] LABS: Basophils % 0.5 %; Eosinophils # 0.1 K/mcL (0.0-0.6); Eosinophils % 2.9 %; Hematocrit 26.6 % (37.5-50.1); Hemoglobin 8.3 g/dL (12.9-16.9); Immature Granulocytes % 0.5 % (0-4); Immature Platelets 2.2 % (1.1-6.1); Lymphocytes # 0.4 K/mcL (0.6-4.6); Lymphocytes % 17.7 %; Mean Corpuscular HGB Conc 31.2 g/dL (31.6-35.5); Mean Corpuscular Hemoglobin 28.5 pg (28.0-33.3); Mean Corpuscular Volume 91.4 fL (83.0-100.0); Mean Platelet Volume 9.1 fL (9.4-12.4); Monocytes # 0.3 K/mcL (0.0-1.3); Neutrophils # 1.4 K/mcL (1.6-8.9); Red Blood Count 2.91 M/mcL (4.19-5.50); Red Cell Distribution Width 17.2 % (11.5-14.5); Segmented Neutrophils % 66.4 %; White Blood Count 2.1 K/mcL (4.3-11.1)
[2019-09-21 05:06] LABS: Prothrombin Time 11.4 Seconds (9.4-12.1)
[2019-09-21 05:08] LABS: Platelet Count 65 K/mcL (140-400)
[2019-09-21 05:21] LABS: Estimated Average Glucose 214 mg/dl
[2019-09-21 05:23] LABS: Alanine Aminotransferase 22 Units/L (7-52); Albumin 3.1 g/dL (3.5-5.7); Albumin/Globulin Ratio 1.7 (1.1-2.2); Alkaline Phosphatase 206 Units/L (34-104); Aspartate Amino Transferase 28 Units/L (13-39); BUN/Creatinine Ratio 8 (6-26); Bilirubin,Total 2.2 mg/dL (0.3-1.0); Blood Urea Nitrogen 10 mg/dL (6-20); Calcium 8.6 mg/dL (8.6-10.3); Carbon Dioxide 35 mEq/L (23-29); Chloride 97 mEq/L (98-107); Globulin 1.8 g/dL (2.4-3.5); Glucose 344 mg/dL (70-105); Magnesium 2.1 mg/dL (1.6-2.6); Osmolality,Calculated 301 (280-300); Phosphorous 2.9 mg/dL (2.7-4.5); Potassium 3.8 mEq/L (3.5-5.1); Sodium 139 mEq/L (136-145); Total Protein 4.9 g/dL (6.4-8.9); eGFR For African Americans > 60 (> 60); eGFR For Non-African Americans 59 (> 60)
[2019-09-21 07:49] VITALS: BP 109/44
[2019-09-21] MEDS: Lactulose Oral Soln 20 GM/30 ML UDC PO SCH (08:20)
[2019-09-21] MEDS: Gabapentin 300 MG CAPSULE PO SCH (08:20)
[2019-09-21] MEDS: Insulin LISPRO 300 UNITS/3 ML VIAL SQ SCH (08:21)
[2019-09-21] MEDS ORDERED: Nitroglycerin 0.4 MG TAB.SUBL SL PRN (08:35)
[2019-09-21] MEDS ORDERED: NON-FORMULARY MEDICATION 1 EACH EACH (Insulin Detemir [Levemir Flextouch] 30 UNIT) SQ SCH (09:00)
[2019-09-21] MEDS ORDERED: cefTRIAXone 1,000 MG in Water for inj. (sterile) 10 ML IVP SCH (09:00)
[2019-09-21] MEDS ORDERED: Insulin DETEMIR 100 UNIT/ML X5UNITS SQ SCH (09:00)
[2019-09-21] MEDS ORDERED: Lactulose Oral Soln 20 GM/30 ML UDC PO SCH (10:52)
== END 2019-09-21 13:05 | disposition other institution (70) ==
LOC: EMEROOARM 10:08 → 3BNU 10:08
PROVIDERS: ADMIT Internal Medicine; ATTEND Internal Medicine

== ENCOUNTER 2019-10-04 09:39 | Observation (INO) ==
[2019-10-04] MEDS ORDERED: 0.9 % Sodium Chloride 250 ML IVC ONE (09:47)
[2019-10-04 10:36] LABS: INR 1.1
[2019-10-04 10:39] LABS: Activated Partial Thrombo Time 35.9 Seconds (26.0-36.0)
[2019-10-04 10:49] LABS: Basophils % 0.5 %; Hemoglobin 8.7 g/dL (12.9-16.9)
[2019-10-04 10:52] LABS: Eosinophils # 0.1 K/mcL (0.0-0.6); Eosinophils % 2.1 %; Hematocrit 27.7 % (37.5-50.1); Immature Granulocytes % 1.3 % (0-4); Immature Platelets 2.8 % (1.1-6.1); Lymphocytes # 0.5 K/mcL (0.6-4.6); Lymphocytes % 12.6 %; Mean Corpuscular HGB Conc 31.4 g/dL (31.6-35.5); Mean Corpuscular Hemoglobin 29.3 pg (28.0-33.3); Mean Corpuscular Volume 93.3 fL (83.0-100.0); Mean Platelet Volume 9.1 fL (9.4-12.4); Monocytes # 0.4 K/mcL (0.0-1.3); Monocytes % 9.2 %; Neutrophils # 2.9 K/mcL (1.6-8.9); Nucleated Red Blood Cells 0.5 /100 WBC (0); Red Blood Count 2.97 M/mcL (4.19-5.50); Red Cell Distribution Width 18.6 % (11.5-14.5); Segmented Neutrophils % 74.3 %; White Blood Count 3.9 K/mcL (4.3-11.1)
[2019-10-04 10:57] LABS: Alanine Aminotransferase 20 Units/L (7-52); Albumin 3.5 g/dL (3.5-5.7); Albumin/Globulin Ratio 1.8 (1.1-2.2); Alkaline Phosphatase 190 Units/L (34-104); Aspartate Amino Transferase 28 Units/L (13-39); BUN/Creatinine Ratio 15 (6-26); Bilirubin,Total 2.6 mg/dL (0.3-1.0); Blood Urea Nitrogen 16 mg/dL (6-20); Calcium 9.3 mg/dL (8.6-10.3); Carbon Dioxide 39 mEq/L (23-29); Chloride 95 mEq/L (98-107); Globulin 1.9 g/dL (2.4-3.5); Glucose 344 mg/dL (70-105); Osmolality,Calculated 303 (280-300); Potassium 3.9 mEq/L (3.5-5.1); Sodium 139 mEq/L (136-145); Total Protein 5.4 g/dL (6.4-8.9); Troponin I < 0.03 ng/mL (< 0.04); eGFR For African Americans > 60 (> 60); eGFR For Non-African Americans > 60 (> 60)
[2019-10-04 11:05] LABS: Platelet Count 90 K/mcL (140-400)
[2019-10-04 11:54] LABS: Bilirubin,Urine Negative (Negative); Blood,Urine Negative (Negative); Color,Urine Yellow (Yellow); Glucose,Urine (UA) 250 mg/dL (Normal); Ketones,Urine Negative (Negative); Leukocyte Esterase,Urine Negative (Negative); Nitrite,Urine Negative (Negative); PH,Urine 6.5 pH Units (5.0-8.0); Protein,Urine 30 mg/dL (Neg-Trace)
[2019-10-04] MEDS ORDERED: Lactulose Oral Soln 20 GM/30 ML UDC PO ONE (11:56)
[2019-10-04] MEDS ORDERED: Furosemide 40 MG/4 ML VIAL IVP ONE (11:57)
[2019-10-04 12:00] LABS: Clarity,Urine Slightly Hazy (Clear)
[2019-10-04 12:17] LABS: Amphetamine Screen,Urine Negative ng/mL (Cutoff=1000); Barbiturate Screen,Urine Negative ng/mL (Cutoff=200); Benzodiazepines Screen,Urine Positive ng/mL (Cutoff=200); Cannabinoid Screen,Urine Negative ng/mL (Cutoff = 50); Cocaine Screen,Urine Negative ng/mL (Cutoff= 300); Opiate Screen,Urine Negative ng/mL (Cutoff=300); Phencyclidine Screen,Urine Negative ng/mL (Cutoff=25)
[2019-10-04 12:22] LABS: Bacteria,Urine None Seen per hpf (None-Few); Hyaline Casts,Urine None Seen per lpf (None-Few); RBC,Urine 0-3 per hpf (0-3); Squamous Epithelial Cell,Urine Many per lpf (None-Few); WBC,Urine 0-3 per hpf (0-3)
[2019-10-04] MEDS ORDERED: Naloxone 0.4 MG/ML INJ IVP PRN (13:22)
[2019-10-04] MEDS ORDERED: *HR* HYDROcodone/Acet 5/325 mg TABLET PO PRN (13:22)
[2019-10-04] MEDS ORDERED: *HR* OxyCODONE Immed Rel 5 MG TABLET PO PRN (13:22)
[2019-10-04] MEDS ORDERED: Acetaminophen 325 MG TABLET PO PRN (13:22)
[2019-10-04] MEDS ORDERED: Dextrose Gel 15 GM/37.5 ML TUBE PO PRN ×2 (15:26)
[2019-10-04] MEDS ORDERED: *HR* Dextrose 50 % in Water (Syg) 50 ML SYRINGE IVP PRN (15:26)
[2019-10-04] MEDS ORDERED: D5% in Water 1,000 ML IVC PRN (15:26)
[2019-10-04] MEDS ORDERED: Albumin 25% 25gram/100mL 25 GM/100 ML IV.SOLN IVPB ONE (16:00)
[2019-10-04] MEDS: Bumetanide 1 MG TABLET PO SCH (17:23)
[2019-10-04] MEDS: Lactulose Oral Soln 20 GM/30 ML UDC PO SCH ×2 (17:23→20:46)
[2019-10-04] MEDS: Insulin LISPRO 300 UNITS/3 ML VIAL SQ SCH (17:28)
[2019-10-04] MEDS: *HR* Heparin 5,000 UNIT/ML VIAL SQ SCH (17:32)
[2019-10-04] MEDS: Insulin DETEMIR 100 UNIT/ML X5UNITS SQ SCH (20:46)
[2019-10-04] MEDS: Sucralfate 1 GM TABLET PO SCH (20:47)
[2019-10-04] MEDS: Gabapentin 300 MG CAPSULE PO SCH (20:47)
[2019-10-05 01:03] LABS: Basophils % 0.4 %; Eosinophils % 1.8 %; Hematocrit 23.6 % (37.5-50.1); Hemoglobin 7.3 g/dL (12.9-16.9); Immature Granulocytes % 1.3 % (0-4); Immature Platelets 1.5 % (1.1-6.1); Lymphocytes # 0.4 K/mcL (0.6-4.6); Lymphocytes % 15.4 %; Mean Corpuscular HGB Conc 30.9 g/dL (31.6-35.5); Mean Corpuscular Hemoglobin 29.6 pg (28.0-33.3); Mean Corpuscular Volume 95.5 fL (83.0-100.0); Mean Platelet Volume 9.2 fL (9.4-12.4); Monocytes # 0.3 K/mcL (0.0-1.3); Monocytes % 11.9 %; Neutrophils # 1.6 K/mcL (1.6-8.9); Nucleated Red Blood Cells 0.9 /100 WBC (0); Red Blood Count 2.47 M/mcL (4.19-5.50); Segmented Neutrophils % 69.2 %; White Blood Count 2.3 K/mcL (4.3-11.1)
[2019-10-05 01:08] LABS: Platelet Count 80 K/mcL (140-400)
[2019-10-05 01:29] LABS: BUN/Creatinine Ratio 12 (6-26); Blood Urea Nitrogen 13 mg/dL (6-20); Calcium 8.3 mg/dL (8.6-10.3); Carbon Dioxide 37 mEq/L (23-29); Chloride 97 mEq/L (98-107); Glucose 361 mg/dL (70-105); Osmolality,Calculated 307 (280-300); Potassium 3.6 mEq/L (3.5-5.1); Sodium 141 mEq/L (136-145); eGFR For African Americans > 60 (> 60); eGFR For Non-African Americans > 60 (> 60)
[2019-10-05] MEDS: *HR* Heparin 5,000 UNIT/ML VIAL SQ SCH (05:50)
[2019-10-05] MEDS ORDERED: Ascorbic Acid 500 MG TABLET PO SCH ×2 (06:30→07:30)
[2019-10-05 08:03] LABS: Hematocrit 22.8 % (37.5-50.1); Hemoglobin 7.5 g/dL (12.9-16.9)
[2019-10-05] MEDS: Insulin DETEMIR 100 UNIT/ML X5UNITS SQ SCH (08:12)
[2019-10-05] MEDS: Lactulose Oral Soln 20 GM/30 ML UDC PO SCH ×2 (08:13→14:26)
[2019-10-05] MEDS: Bumetanide 1 MG TABLET PO SCH (08:13)
[2019-10-05] MEDS: Sucralfate 1 GM TABLET PO SCH (08:13)
[2019-10-05] MEDS: Gabapentin 300 MG CAPSULE PO SCH ×2 (08:13→14:26)
[2019-10-05] MEDS: Insulin LISPRO 300 UNITS/3 ML VIAL SQ SCH ×2 (08:15→11:33)
[2019-10-05] MEDS ORDERED: Spironolactone 25 MG TABLET PO SCH (09:00)
[2019-10-05 10:31] VITALS: BP 120/54
[2019-10-05] MEDS ORDERED: Ferumoxytol 510 MG in 0.9 % Sodium Chloride 100 ML IVPB ONE (10:35)
[2019-10-05 15:18] LABS: Hematocrit 25.9 % (37.5-50.1)
[2019-10-05] MEDS ORDERED: Sucralfate 1 GM TABLET PO SCH (16:30)
== END 2019-10-05 17:12 | disposition home or self-care (01) ==
LOC: 3ANU 09:39 → EMEROOARM 09:39 → SUATTDRO 12:24 → 3ANU 13:30
PROVIDERS: ADMIT Family Medicine; ATTEND Internal Medicine

== ENCOUNTER 2019-10-17 11:24 | Inpatient (IN) ==
[2019-10-17] MEDS ORDERED: Ipratropium/Albuterol Neb 3 ML IH ONE (11:59)
[2019-10-17] MEDS ORDERED: methylPREDNISolone 125 MG/2 ML VIAL IVP ONE (12:00)
[2019-10-17 12:29] LABS: Basophils % 0.3 %; Eosinophils % 0.7 %; Hematocrit 30.6 % (37.5-50.1); Hemoglobin 10.1 g/dL (12.9-16.9); Immature Granulocytes % 0.3 % (0-4); Lymphocytes # 0.3 K/mcL (0.6-4.6); Lymphocytes % 11.2 %; Mean Corpuscular Hemoglobin 30.3 pg (28.0-33.3); Mean Corpuscular Volume 91.9 fL (83.0-100.0); Mean Platelet Volume 9.4 fL (9.4-12.4); Monocytes # 0.4 K/mcL (0.0-1.3); Monocytes % 12.2 %; Neutrophils # 2.2 K/mcL (1.6-8.9); Platelet Count 65 K/mcL (140-400); Red Blood Count 3.33 M/mcL (4.19-5.50); Red Cell Distribution Width 17.7 % (11.5-14.5); Segmented Neutrophils % 75.3 %; White Blood Count 2.9 K/mcL (4.3-11.1)
[2019-10-17 12:30] LABS: Platelet Estimate Decreased (Normal)
[2019-10-17 12:31] LABS: INR 1.1; Prothrombin Time 12.9 Seconds (9.4-12.1)
[2019-10-17 12:48] LABS: Alanine Aminotransferase 22 Units/L (7-52); Albumin 3.8 g/dL (3.5-5.7); Albumin/Globulin Ratio 2.1 (1.1-2.2); Alkaline Phosphatase 154 Units/L (34-104); Aspartate Amino Transferase 37 Units/L (13-39); BUN/Creatinine Ratio 16 (6-26); Bilirubin,Direct 0.7 mg/dL (0.0-0.2); Bilirubin,Total 3.7 mg/dL (0.3-1.0); Blood Urea Nitrogen 17 mg/dL (6-20); Calcium 8.6 mg/dL (8.6-10.3); Carbon Dioxide 39 mEq/L (23-29); Chloride 91 mEq/L (98-107); Globulin 1.8 g/dL (2.4-3.5); Glucose 184 mg/dL (70-105); Osmolality,Calculated 290 (280-300); Potassium 3.4 mEq/L (3.5-5.1); Sodium 137 mEq/L (136-145); Total Protein 5.6 g/dL (6.4-8.9); eGFR For African Americans > 60 (> 60); eGFR For Non-African Americans > 60 (> 60)
[2019-10-17] MEDS ORDERED: Cefepime HCl 2,000 MG in Water for inj. (sterile) 20 ML IVP ONE (13:00)
[2019-10-17] MEDS ORDERED: Naloxone 0.4 MG/ML INJ IVP PRN (14:14)
[2019-10-17] MEDS ORDERED: NON-FORMULARY MEDICATION 1 EACH EACH (Pantoprazole Sodium [Protonix] 40 MG) PO PRN (14:15)
[2019-10-17] MEDS ORDERED: *HR* OxyCODONE/APAP 10/325 TABLET PO PRN (14:15)
[2019-10-17] MEDS ORDERED: ALPRAZolam 1 MG TABLET PO PRN (14:34)
[2019-10-17] MEDS ORDERED: Dextrose Gel 15 GM/37.5 ML TUBE PO PRN ×2 (14:34)
[2019-10-17] MEDS ORDERED: *HR* Dextrose 50 % in Water (Syg) 50 ML SYRINGE IVP PRN (14:34)
[2019-10-17] MEDS ORDERED: D5% in Water 1,000 ML IVC PRN (14:34)
[2019-10-17] MEDS: Gabapentin 300 MG CAPSULE PO SCH ×2 (15:26→21:14)
[2019-10-17] MEDS: Sucralfate 1 GM TABLET PO SCH (15:33)
[2019-10-17] MEDS ORDERED: GuaiFENesin Liq 200 MG/10 ML UDC PO PRN (15:59)
[2019-10-17] MEDS ORDERED: Potassium Chloride Elixir 20 MEQ/15 ML UDC PO SCH (17:00)
[2019-10-17] MEDS: Lactulose Oral Soln 20 GM/30 ML UDC PO SCH ×2 (18:24→21:12)
[2019-10-17] MEDS: *HR* Heparin 5,000 UNIT/ML VIAL SQ SCH (18:26)
[2019-10-17] MEDS ORDERED: ALPRAZolam 1 MG TABLET PO SCH (21:00)
[2019-10-17] MEDS: Insulin DETEMIR 100 UNIT/ML X5UNITS SQ SCH (21:12)
[2019-10-17] MEDS: Insulin LISPRO 300 UNITS/3 ML VIAL SQ SCH (21:13)
[2019-10-17] MEDS ORDERED: 0.9 % Sodium Chloride 1,000 ML IVC ONE (21:59)
[2019-10-17] MEDS: Levalbuterol Neb 1.25 MG/3 ML IH SCH (22:03)
[2019-10-17] MEDS ORDERED: Insulin Human Regular 10 UNIT in 0.9 % Sodium Chloride 10 ML IV ONE (23:31)
[2019-10-17] MEDS: Piperacillin/Tazobactam 3.375 GM in 0.9 % Sodium Chloride Mini Bag 100 ML IVPB SCH (23:42)
[2019-10-17] MEDS: MethylPREDNISolone 40 MG/ML VIAL IVP SCH (23:47)
[2019-10-18] MEDS ORDERED: 0.9 % Sodium Chloride 1,000 ML IVC ONE (00:42)
[2019-10-18] MEDS ORDERED: Insulin Human Regular 10 UNIT in 0.9 % Sodium Chloride 10 ML IV ONE (02:24)
[2019-10-18] MEDS: Levalbuterol Neb 1.25 MG/3 ML IH SCH ×4 (03:52→22:01)
[2019-10-18 04:56] LABS: Red Cell Distribution Width 17.2 % (11.5-14.5)
[2019-10-18 04:58] LABS: Hematocrit 28.8 % (37.5-50.1); Hemoglobin 9.2 g/dL (12.9-16.9); Immature Granulocytes % 0.7 % (0-4); Immature Platelets 2.1 % (1.1-6.1); Lymphocytes # 0.3 K/mcL (0.6-4.6); Lymphocytes % 11.2 %; Mean Corpuscular HGB Conc 31.9 g/dL (31.6-35.5); Mean Corpuscular Hemoglobin 29.7 pg (28.0-33.3); Mean Corpuscular Volume 92.9 fL (83.0-100.0); Mean Platelet Volume 10.1 fL (9.4-12.4); Monocytes # 0.2 K/mcL (0.0-1.3); Monocytes % 6.9 %; Segmented Neutrophils % 81.2 %; White Blood Count 2.8 K/mcL (4.3-11.1)
[2019-10-18 05:05] LABS: Neutrophils # 2.3 K/mcL (1.6-8.9); Platelet Count 58 K/mcL (140-400)
[2019-10-18 05:16] LABS: BUN/Creatinine Ratio 16 (6-26); Blood Urea Nitrogen 18 mg/dL (6-20); Carbon Dioxide 32 mEq/L (23-29); Chloride 95 mEq/L (98-107); Glucose 267 mg/dL (70-105); Magnesium 1.6 mg/dL (1.6-2.6); Osmolality,Calculated 295 (280-300); Phosphorous 2.1 mg/dL (2.7-4.5); Potassium 4.1 mEq/L (3.5-5.1); Sodium 137 mEq/L (136-145); eGFR For African Americans > 60 (> 60); eGFR For Non-African Americans > 60 (> 60)
[2019-10-18] MEDS: *HR* Heparin 5,000 UNIT/ML VIAL SQ SCH ×2 (05:44→18:11)
[2019-10-18] MEDS ORDERED: Aminoglycoside Consult 1 EACH MC ONE (08:21)
[2019-10-18] MEDS: Sucralfate 1 GM TABLET PO SCH ×2 (10:49→10:50)
[2019-10-18] MEDS: Gabapentin 300 MG CAPSULE PO SCH ×3 (10:50→22:25)
[2019-10-18] MEDS: Spironolactone 25 MG TABLET PO SCH (10:51)
[2019-10-18] MEDS: Piperacillin/Tazobactam 3.375 GM in 0.9 % Sodium Chloride Mini Bag 100 ML IVPB SCH ×2 (10:51→22:25)
[2019-10-18] MEDS: Bumetanide 1 MG TABLET PO SCH (10:51)
[2019-10-18] MEDS: Insulin LISPRO 300 UNITS/3 ML VIAL SQ SCH ×4 (10:52→22:52)
[2019-10-18] MEDS: MethylPREDNISolone 40 MG/ML VIAL IVP SCH ×3 (10:52→22:26)
[2019-10-18] MEDS: Lactulose Oral Soln 20 GM/30 ML UDC PO SCH ×4 (10:52→22:25)
[2019-10-18] MEDS: Insulin DETEMIR 100 UNIT/ML X5UNITS SQ SCH ×2 (10:53→22:26)
[2019-10-19] MEDS: Piperacillin/Tazobactam 3.375 GM in 0.9 % Sodium Chloride Mini Bag 100 ML IVPB SCH (03:57)
[2019-10-19] MEDS: Insulin LISPRO 300 UNITS/3 ML VIAL SQ SCH ×3 (04:02→13:12)
[2019-10-19] MEDS: Levalbuterol Neb 1.25 MG/3 ML IH SCH ×3 (04:07→17:15)
[2019-10-19 04:12] LABS: Hematocrit 28.9 % (37.5-50.1); Immature Granulocytes % 1.5 % (0-4); Immature Platelets 1.8 % (1.1-6.1); Lymphocytes # 0.3 K/mcL (0.6-4.6); Lymphocytes % 7.3 %; Mean Corpuscular HGB Conc 31.1 g/dL (31.6-35.5); Mean Corpuscular Hemoglobin 29.7 pg (28.0-33.3); Mean Corpuscular Volume 95.4 fL (83.0-100.0); Mean Platelet Volume 9.2 fL (9.4-12.4); Monocytes # 0.2 K/mcL (0.0-1.3); Monocytes % 3.9 %; Neutrophils # 3.6 K/mcL (1.6-8.9); Red Blood Count 3.03 M/mcL (4.19-5.50); Red Cell Distribution Width 17.1 % (11.5-14.5); Segmented Neutrophils % 87.3 %; White Blood Count 4.1 K/mcL (4.3-11.1)
[2019-10-19 04:19] LABS: Platelet Count 67 K/mcL (140-400)
[2019-10-19 04:25] LABS: BUN/Creatinine Ratio 18 (6-26); Blood Urea Nitrogen 21 mg/dL (6-20); Calcium 8.4 mg/dL (8.6-10.3); Carbon Dioxide 36 mEq/L (23-29); Chloride 95 mEq/L (98-107); Glucose 312 mg/dL (70-105); Osmolality,Calculated 303 (280-300); Potassium 4.6 mEq/L (3.5-5.1); Sodium 139 mEq/L (136-145); eGFR For African Americans > 60 (> 60); eGFR For Non-African Americans > 60 (> 60)
[2019-10-19 04:34] LABS: ABG Base Excess 8 mEq/L (-2 to 3); ABG HCO3 35 mEq/L (21-27); ABG Oxygen Saturation 95 % (95-98); ABG PCO2 71 mmHg (35-45); ABG PH 7.31 pH Units (7.32-7.45); ABG PO2 86 mmHg (85-104); ABG TCO2 38 mEq/L (20-26)
[2019-10-19] MEDS: *HR* Heparin 5,000 UNIT/ML VIAL SQ SCH (05:53)
[2019-10-19 08:00] LABS: ABG Base Excess 13 mEq/L (-2 to 3); ABG HCO3 40 mEq/L (21-27); ABG Oxygen Saturation 94 % (95-98); ABG PCO2 78 mmHg (35-45); ABG PH 7.32 pH Units (7.32-7.45); ABG PO2 82 mmHg (85-104); ABG TCO2 43 mEq/L (20-26); Blood Gas Pressure Support 14 cm H2O
[2019-10-19] MEDS: MethylPREDNISolone 40 MG/ML VIAL IVP SCH (08:11)
[2019-10-19] MEDS: Bumetanide 1 MG TABLET PO SCH (08:11)
[2019-10-19] MEDS: Gabapentin 300 MG CAPSULE PO SCH ×2 (08:11→17:55)
[2019-10-19] MEDS: Sucralfate 1 GM TABLET PO SCH ×2 (08:11→17:55)
[2019-10-19] MEDS: Spironolactone 25 MG TABLET PO SCH (08:11)
[2019-10-19] MEDS: Lactulose Oral Soln 20 GM/30 ML UDC PO SCH ×3 (08:12→17:55)
[2019-10-19] MEDS: Insulin DETEMIR 100 UNIT/ML X5UNITS SQ SCH (08:15)
[2019-10-19] MEDS ORDERED: *HR* Promethazine 25 MG/ML VIAL IVP ONE (10:17)
[2019-10-19] MEDS ORDERED: Piperacillin/Tazobactam 3.375 GM in 0.9 % Sodium Chloride Mini Bag 100 ML IVPB SCH ×2 (10:30→20:00)
[2019-10-19 13:31] VITALS: BP 147/74
[2019-10-19] MEDS ORDERED: predniSONE 20 MG TABLET PO SCH (17:00)
== END 2019-10-19 18:00 | disposition home or self-care (01) | DRG 193 ==
LOC: 2ANU 11:24 → EMEROOARM 11:24 → SUATTDRO 13:14 → 2ANU 14:20 → SUATTDRO 10-18 12:19
PROVIDERS: ADMIT Student in an Organized Health Care Education/Training Program; ATTEND Internal Medicine

== ENCOUNTER 2019-12-02 11:13 | Inpatient (IN) ==
[2019-12-02 12:05] LABS: Basophils % 0.6 %; Eosinophils # 0.1 K/mcL (0.0-0.6); Eosinophils % 2.9 %; Hematocrit 30.1 % (37.5-50.1); INR 1.1; Lymphocytes # 0.5 K/mcL (0.6-4.6); Lymphocytes % 15.2 %; Mean Corpuscular HGB Conc 30.6 g/dL (31.6-35.5); Mean Corpuscular Hemoglobin 29.7 pg (28.0-33.3); Mean Corpuscular Volume 97.1 fL (83.0-100.0); Mean Platelet Volume 9.3 fL (9.4-12.4); Monocytes # 0.3 K/mcL (0.0-1.3); Monocytes % 9.2 %; Prothrombin Time 12.2 Seconds (9.4-12.1); Red Cell Distribution Width 17.8 % (11.5-14.5); Segmented Neutrophils % 70.1 %; White Blood Count 3.5 K/mcL (4.3-11.1)
[2019-12-02 12:06] LABS: Hemoglobin 9.2 g/dL (12.9-16.9); Neutrophils # 2.5 K/mcL (1.6-8.9); Platelet Count 75 K/mcL (140-400)
[2019-12-02 12:08] LABS: Activated Partial Thrombo Time 33.8 Seconds (26.0-36.0)
[2019-12-02 12:27] LABS: Troponin I 0.06 ng/mL (< 0.04)
[2019-12-02 12:30] LABS: BUN/Creatinine Ratio 14 (6-26); Blood Urea Nitrogen 12 mg/dL (6-20); Calcium 8.7 mg/dL (8.6-10.3); Carbon Dioxide 40 mEq/L (23-29); Chloride 97 mEq/L (98-107); Glucose 187 mg/dL (70-105); Magnesium 1.6 mg/dL (1.6-2.6); Osmolality,Calculated 299 (280-300); Potassium 3.8 mEq/L (3.5-5.1); Sodium 142 mEq/L (136-145); eGFR For African Americans > 60 (> 60); eGFR For Non-African Americans > 60 (> 60)
[2019-12-02] MEDS ORDERED: Isovue-370 500 ML BOTTLE IVP ONE (12:58)
[2019-12-02] MEDS ORDERED: Piperacillin/Tazobactam 3.375 GM in 0.9 % Sodium Chloride Mini Bag 100 ML IVPB ONE (14:20)
[2019-12-02] MEDS ORDERED: *HR* HYDROcodone/Acet 5/325 mg TABLET PO PRN (16:25)
[2019-12-02] MEDS ORDERED: *HR* OxyCODONE Immed Rel 5 MG TABLET PO PRN (16:25)
[2019-12-02] MEDS ORDERED: Acetaminophen 325 MG TABLET PO PRN (16:25)
[2019-12-02] MEDS ORDERED: Ondansetron ODT 4 MG TAB.RAPDIS SL PRN (16:25)
[2019-12-02] MEDS ORDERED: Naloxone 0.4 MG/ML INJ IVP PRN (16:25)
[2019-12-02] MEDS ORDERED: Ipratropium/Albuterol Neb 3 ML IH PRN (16:37)
[2019-12-02] MEDS ORDERED: *HR* Dextrose 50 % in Water (Syg) 50 ML SYRINGE IVP PRN (16:49)
[2019-12-02] MEDS ORDERED: Dextrose Gel 15 GM/37.5 ML TUBE PO PRN ×2 (16:49)
[2019-12-02] MEDS ORDERED: D5% in Water 1,000 ML IVC PRN (16:49)
[2019-12-02] MEDS ORDERED: Albumin 25% 25gram/100mL 25 GM/100 ML IV.SOLN IVPB ONE (16:49)
[2019-12-02] MEDS: Gabapentin 300 MG CAPSULE PO SCH (19:45)
[2019-12-02] MEDS: Lactulose Oral Soln 20 GM/30 ML UDC PO SCH ×2 (19:45→19:46)
[2019-12-02] MEDS: Sucralfate 1 GM TABLET PO SCH (19:46)
[2019-12-02] MEDS ORDERED: Insulin DETEMIR 100 UNIT/ML X5UNITS SQ SCH (21:00)
[2019-12-02] MEDS: Ipratropium/Albuterol Neb 3 ML IH SCH (22:18)
[2019-12-02] MEDS: Piperacillin/Tazobactam 3.375 GM in 0.9 % Sodium Chloride Mini Bag 100 ML IVPB SCH (23:20)
[2019-12-03] MEDS: Ipratropium/Albuterol Neb 3 ML IH SCH ×2 (04:00→10:42)
[2019-12-03 04:38] LABS: Basophils % 0.4 %; Eosinophils # 0.1 K/mcL (0.0-0.6); Eosinophils % 2.9 %; Hematocrit 24.6 % (37.5-50.1); Hemoglobin 7.6 g/dL (12.9-16.9); Immature Granulocytes % 0.8 % (0-4); Immature Platelets 1.8 % (1.1-6.1); Lymphocytes # 0.4 K/mcL (0.6-4.6); Lymphocytes % 15.8 %; Mean Corpuscular HGB Conc 30.9 g/dL (31.6-35.5); Mean Corpuscular Hemoglobin 29.9 pg (28.0-33.3); Mean Corpuscular Volume 96.9 fL (83.0-100.0); Mean Platelet Volume 9.8 fL (9.4-12.4); Monocytes # 0.2 K/mcL (0.0-1.3); Monocytes % 9.5 %; Neutrophils # 1.7 K/mcL (1.6-8.9); Red Blood Count 2.54 M/mcL (4.19-5.50); Red Cell Distribution Width 17.1 % (11.5-14.5); Segmented Neutrophils % 70.6 %; White Blood Count 2.4 K/mcL (4.3-11.1)
[2019-12-03 04:40] LABS: Platelet Count 68 K/mcL (140-400)
[2019-12-03 04:58] LABS: BUN/Creatinine Ratio 12 (6-26); Blood Urea Nitrogen 12 mg/dL (6-20); Calcium 8.6 mg/dL (8.6-10.3); Carbon Dioxide 41 mEq/L (23-29); Chloride 98 mEq/L (98-107); Glucose 221 mg/dL (70-105); Magnesium 1.7 mg/dL (1.6-2.6); Osmolality,Calculated 301 (280-300); Phosphorous 3.2 mg/dL (2.7-4.5); Potassium 4.1 mEq/L (3.5-5.1); Sodium 142 mEq/L (136-145); Troponin I 0.05 ng/mL (< 0.04); eGFR For African Americans > 60 (> 60); eGFR For Non-African Americans > 60 (> 60)
[2019-12-03 08:44] LABS: Hematocrit 27.7 % (37.5-50.1); Hemoglobin 8.6 g/dL (12.9-16.9)
[2019-12-03] MEDS ORDERED: Bumetanide 1 MG TABLET PO SCH (09:00)
[2019-12-03] MEDS ORDERED: Ascorbic Acid 500 MG TABLET PO SCH (09:00)
[2019-12-03] MEDS ORDERED: Spironolactone 25 MG TABLET PO SCH (09:00)
[2019-12-03] MEDS: Lactulose Oral Soln 20 GM/30 ML UDC PO SCH ×2 (09:02→12:01)
[2019-12-03] MEDS: Sucralfate 1 GM TABLET PO SCH (09:02)
[2019-12-03] MEDS: Piperacillin/Tazobactam 3.375 GM in 0.9 % Sodium Chloride Mini Bag 100 ML IVPB SCH (09:03)
[2019-12-03] MEDS: Gabapentin 300 MG CAPSULE PO SCH (09:03)
[2019-12-03] MEDS: Insulin LISPRO 300 UNITS/3 ML VIAL SQ SCH ×2 (09:05→12:01)
[2019-12-03 11:24] LABS: Adenovirus Not Detected (Not Detect); Bordetella Pertussis Not Detected (Not Detect); Chlamydophila pneumoniae Not Detected (Not Detect); Coronavirus 229E Not Detected (Not Detect); Coronavirus HKU1 Not Detected (Not Detect); Coronavirus NL63 Not Detected (Not Detect); Coronavirus OC43 Not Detected (Not Detect); Human Metapneumovirus Not Detected (Not Detect); Human Rhinovirus/Enterovirus Not Detected (Not Detect); Influenza A Subtype 2009 H1 Not Detected (Not Detect); Influenza B Not Detected (Not Detect); Mycoplasma pneumoniae Not Detected (Not Detect); Parainfluenza Virus 1 Not Detected (Not Detect); Parainfluenza Virus 2 Not Detected (Not Detect); Parainfluenza Virus 3 Not Detected (Not Detect); Parainfluenza Virus 4 Not Detected (Not Detect); Respiratory Syncytial Virus Not Detected (Not Detect)
[2019-12-03 11:27] LABS: RBC,Pleural Fluid 0.002 M/mcL
[2019-12-03 11:31] LABS: Appearance of Pleural Fl Clear (Clear)
[2019-12-03 11:47] VITALS: BP 127/55
[2019-12-03 11:48] LABS: Amylase,Pleural Fluid 48 Units/L (No Ref Range); Glucose,Pleural Fluid 174 mg/dL (No Ref Range); LDH,Pleural Fluid 74 Units/L (No Ref Range); Total Protein,Pleural Fluid < 3.0 g/dL
== END 2019-12-03 15:37 | disposition home or self-care (01) ==
LOC: 2ANU 11:13 → EMEROOARM 11:13 → 2ANU 16:11 → SUATTDRO 16:35
PROVIDERS: ADMIT Internal Medicine; ATTEND Internal Medicine

== ENCOUNTER 2020-01-03 14:06 | Inpatient (IN) ==
[2020-01-03] MEDS ORDERED: Isovue-370 500 ML BOTTLE IVP ONE (14:41)
[2020-01-03 14:54] LABS: Basophils % 0.3 %; Immature Granulocytes % 1.3 % (0-4)
[2020-01-03 14:55] LABS: INR 1.1; Prothrombin Time 12.7 Seconds (9.4-12.1)
[2020-01-03 14:56] LABS: Eosinophils # 0.1 K/mcL (0.0-0.6); Eosinophils % 2.3 %; Hematocrit 25.4 % (37.5-50.1); Hemoglobin 7.9 g/dL (12.9-16.9); Immature Platelets 1.9 % (1.1-6.1); Lymphocytes # 0.5 K/mcL (0.6-4.6); Lymphocytes % 15.2 %; Mean Corpuscular HGB Conc 31.1 g/dL (31.6-35.5); Mean Corpuscular Hemoglobin 28.9 pg (28.0-33.3); Monocytes # 0.3 K/mcL (0.0-1.3); Monocytes % 8.1 %; Neutrophils # 2.3 K/mcL (1.6-8.9); Platelet Count 72 K/mcL (140-400); Red Blood Count 2.73 M/mcL (4.19-5.50); Red Cell Distribution Width 16.8 % (11.5-14.5); Segmented Neutrophils % 72.8 %; White Blood Count 3.1 K/mcL (4.3-11.1)
[2020-01-03 14:58] LABS: Platelet Estimate Decreased (Normal)
[2020-01-03 15:10] LABS: Alanine Aminotransferase 17 Units/L (7-52); Albumin 3.6 g/dL (3.5-5.7); Albumin/Globulin Ratio 2.6 (1.1-2.2); Alkaline Phosphatase 150 Units/L (34-104); Aspartate Amino Transferase 23 Units/L (13-39); BUN/Creatinine Ratio 11 (6-26); Bilirubin,Direct 0.5 mg/dL (0.0-0.2); Bilirubin,Indirect 1.9 mg/dL (0.0-1.0); Bilirubin,Total 2.4 mg/dL (0.3-1.0); Blood Urea Nitrogen 12 mg/dL (6-20); Calcium 8.8 mg/dL (8.6-10.3); Carbon Dioxide 37 mEq/L (23-29); Chloride 97 mEq/L (98-107); Globulin 1.4 g/dL (2.4-3.5); Glucose 250 mg/dL (70-105); Osmolality,Calculated 294 (280-300); Potassium 4.4 mEq/L (3.5-5.1); Sodium 138 mEq/L (136-145); eGFR For African Americans > 60 (> 60); eGFR For Non-African Americans > 60 (> 60)
[2020-01-03] MEDS ORDERED: Ondansetron 4 MG/2 ML VIAL IVP PRN (18:00)
[2020-01-03] MEDS ORDERED: Naloxone 0.4 MG/ML INJ IVP PRN (18:00)
[2020-01-03] MEDS ORDERED: Acetaminophen 325 MG TABLET PO PRN (18:00)
[2020-01-03] MEDS ORDERED: *HR* Dextrose 50 % in Water (Syg) 50 ML SYRINGE IVP PRN (18:06)
[2020-01-03] MEDS ORDERED: D5% in Water 1,000 ML IVC PRN (18:06)
[2020-01-03] MEDS ORDERED: Dextrose Gel 15 GM/37.5 ML TUBE PO PRN ×2 (18:06)
[2020-01-03] MEDS ORDERED: Ipratropium/Albuterol Neb 3 ML IH PRN (18:07)
[2020-01-03] MEDS ORDERED: ALPRAZolam 1 MG TABLET PO PRN (18:09)
[2020-01-03] MEDS ORDERED: Nitroglycerin 0.4 MG TAB.SUBL SL PRN (18:09)
[2020-01-03 18:12] LABS: Bilirubin,Urine Negative (Negative); Blood,Urine Negative (Negative); Clarity,Urine Clear (Clear); Color,Urine Yellow (Yellow); Glucose,Urine (UA) Normal (Normal); Ketones,Urine Negative (Negative); Leukocyte Esterase,Urine Negative (Negative); Nitrite,Urine Negative (Negative); Protein,Urine Trace mg/dL (Neg-Trace); Specific Gravity,Urine > 1.030 (1.010-1.025); Urobilinogen,Urine Normal (Normal)
[2020-01-03] MEDS ORDERED: Azithromycin 500 MG in 0.9 % Sodium Chloride 250 ML IVPB SCH (19:00)
[2020-01-03] MEDS ORDERED: cefTRIAXone 1,000 MG in Water for inj. (sterile) 10 ML IVP SCH (19:00)
[2020-01-03] MEDS: Bumetanide 1 MG TABLET PO SCH (21:09)
[2020-01-03] MEDS: Lactulose Oral Soln 20 GM/30 ML UDC PO SCH (21:09)
[2020-01-03] MEDS: Insulin DETEMIR 100 UNIT/ML X5UNITS SQ SCH (21:10)
[2020-01-04 03:39] LABS: Basophils % 0.4 %
[2020-01-04 03:41] LABS: Eosinophils # 0.1 K/mcL (0.0-0.6); Eosinophils % 2.4 %; Hematocrit 23.9 % (37.5-50.1); Hemoglobin 7.6 g/dL (12.9-16.9); Immature Granulocytes % 1.6 % (0-4); Immature Platelets 1.7 % (1.1-6.1); Lymphocytes # 0.4 K/mcL (0.6-4.6); Lymphocytes % 17.6 %; Mean Corpuscular HGB Conc 31.8 g/dL (31.6-35.5); Mean Corpuscular Hemoglobin 29.1 pg (28.0-33.3); Mean Corpuscular Volume 91.6 fL (83.0-100.0); Mean Platelet Volume 9.3 fL (9.4-12.4); Monocytes # 0.2 K/mcL (0.0-1.3); Neutrophils # 1.7 K/mcL (1.6-8.9); Red Blood Count 2.61 M/mcL (4.19-5.50); Red Cell Distribution Width 16.5 % (11.5-14.5); White Blood Count 2.5 K/mcL (4.3-11.1)
[2020-01-04 03:42] LABS: Platelet Count 68 K/mcL (140-400)
[2020-01-04 04:07] LABS: BUN/Creatinine Ratio 12 (6-26); Blood Urea Nitrogen 13 mg/dL (6-20); Calcium 8.7 mg/dL (8.6-10.3); Carbon Dioxide 40 mEq/L (23-29); Chloride 96 mEq/L (98-107); Glucose 285 mg/dL (70-105); Magnesium 1.8 mg/dL (1.6-2.6); Osmolality,Calculated 298 (280-300); Phosphorous 3.6 mg/dL (2.7-4.5); Potassium 4.3 mEq/L (3.5-5.1); Sodium 139 mEq/L (136-145); eGFR For African Americans > 60 (> 60); eGFR For Non-African Americans > 60 (> 60)
[2020-01-04] MEDS: Sucralfate 1 GM TABLET PO SCH ×2 (05:57→17:51)
[2020-01-04] MEDS: Insulin LISPRO 300 UNITS/3 ML VIAL SQ SCH ×5 (09:14→17:57)
[2020-01-04] MEDS: cefTRIAXone 2,000 MG in Water for inj. (sterile) 20 ML IVP SCH (09:15)
[2020-01-04] MEDS: Lactulose Oral Soln 20 GM/30 ML UDC PO SCH ×2 (09:16→20:51)
[2020-01-04] MEDS: Bumetanide 1 MG TABLET PO SCH ×2 (09:17→18:00)
[2020-01-04] MEDS: Insulin DETEMIR 100 UNIT/ML X5UNITS SQ SCH ×2 (09:18→20:52)
[2020-01-04] MEDS: Ascorbic Acid 500 MG TABLET PO SCH (09:19)
[2020-01-04 16:30] LABS: VBG HCO3 38 mEq/L (21-27); VBG PCO2 51 mmHg (41-51); VBG PH 7.48 pH Units (7.32-7.42); VBG PO2 179 mmHg (25-50)
[2020-01-05 04:57] LABS: Basophils % 0.4 %; Mean Corpuscular Hemoglobin 29.2 pg (28.0-33.3); Red Cell Distribution Width 16.5 % (11.5-14.5)
[2020-01-05 04:59] LABS: Eosinophils # 0.1 K/mcL (0.0-0.6); Eosinophils % 3.9 %; Hematocrit 23.4 % (37.5-50.1); Hemoglobin 7.5 g/dL (12.9-16.9); Immature Granulocytes % 1.4 % (0-4); Immature Platelets 2.4 % (1.1-6.1); Lymphocytes # 0.5 K/mcL (0.6-4.6); Lymphocytes % 16.1 %; Mean Corpuscular HGB Conc 32.1 g/dL (31.6-35.5); Mean Corpuscular Volume 91.1 fL (83.0-100.0); Mean Platelet Volume 9.6 fL (9.4-12.4); Monocytes # 0.3 K/mcL (0.0-1.3); Neutrophils # 1.9 K/mcL (1.6-8.9); Red Blood Count 2.57 M/mcL (4.19-5.50); Segmented Neutrophils % 68.2 %; White Blood Count 2.8 K/mcL (4.3-11.1)
[2020-01-05 05:00] LABS: Platelet Count 72 K/mcL (140-400)
[2020-01-05 05:17] LABS: Alanine Aminotransferase 15 Units/L (7-52); Albumin 3.3 g/dL (3.5-5.7); Albumin/Globulin Ratio 2.4 (1.1-2.2); Alkaline Phosphatase 136 Units/L (34-104); Aspartate Amino Transferase 21 Units/L (13-39); BUN/Creatinine Ratio 13 (6-26); Bilirubin,Total 1.8 mg/dL (0.3-1.0); Blood Urea Nitrogen 12 mg/dL (6-20); Calcium 8.5 mg/dL (8.6-10.3); Carbon Dioxide 38 mEq/L (23-29); Chloride 93 mEq/L (98-107); Globulin 1.4 g/dL (2.4-3.5); Glucose 222 mg/dL (70-105); Osmolality,Calculated 291 (280-300); Potassium 3.5 mEq/L (3.5-5.1); Sodium 137 mEq/L (136-145); Total Protein 4.7 g/dL (6.4-8.9); eGFR For African Americans > 60 (> 60); eGFR For Non-African Americans > 60 (> 60)
[2020-01-05] MEDS: Lactulose Oral Soln 20 GM/30 ML UDC PO SCH (06:06)
[2020-01-05 08:35] VITALS: BP 133/62
[2020-01-05] MEDS: Bumetanide 1 MG TABLET PO SCH (08:58)
[2020-01-05] MEDS: Ascorbic Acid 500 MG TABLET PO SCH (08:58)
[2020-01-05] MEDS: Sucralfate 1 GM TABLET PO SCH (08:59)
[2020-01-05] MEDS: cefTRIAXone 2,000 MG in Water for inj. (sterile) 20 ML IVP SCH (08:59)
[2020-01-05] MEDS: Insulin LISPRO 300 UNITS/3 ML VIAL SQ SCH ×4 (09:02→12:44)
[2020-01-05] MEDS: Insulin DETEMIR 100 UNIT/ML X5UNITS SQ SCH (09:03)
== END 2020-01-05 12:15 | disposition home or self-care (01) | DRG 441 ==
LOC: EMEROOARM 14:06 → 2NENU 14:06 → SUATTDRO 01-04 10:00
PROVIDERS: ADMIT Internal Medicine; ATTEND Internal Medicine

== ENCOUNTER 2020-03-23 17:59 | Observation (INO) ==
[2020-03-23 19:47] LABS: Hemoglobin 6.7 g/dL (12.9-16.9); Mean Corpuscular Volume 95.5 fL (83.0-100.0); Nucleated Red Blood Cells 1.1 /100 WBC (0)
[2020-03-23 19:48] LABS: Basophils % 0.7 %; Eosinophils # 0.1 K/mcL (0.0-0.6); Eosinophils % 1.8 %; Hematocrit 21.1 % (37.5-50.1); Immature Platelets 2.4 % (1.1-6.1); Lymphocytes # 0.6 K/mcL (0.6-4.6); Lymphocytes % 20.5 %; Mean Corpuscular HGB Conc 31.8 g/dL (31.6-35.5); Mean Corpuscular Hemoglobin 30.3 pg (28.0-33.3); Mean Platelet Volume 9.7 fL (9.4-12.4); Monocytes # 0.3 K/mcL (0.0-1.3); Monocytes % 9.2 %; Neutrophils # 1.7 K/mcL (1.6-8.9); Red Blood Count 2.21 M/mcL (4.19-5.50); Red Cell Distribution Width 17.5 % (11.5-14.5); Segmented Neutrophils % 63.8 %; White Blood Count 2.7 K/mcL (4.3-11.1)
[2020-03-23 19:53] LABS: Prothrombin Time 11.6 Seconds (9.4-12.1)
[2020-03-23 19:54] LABS: Platelet Count 65 K/mcL (140-400)
[2020-03-23] MEDS ORDERED: 0.9 % Sodium Chloride 250 ML ONE (20:17)
[2020-03-23 20:28] LABS: Alanine Aminotransferase 9 Units/L (7-52); Albumin 3.6 g/dL (3.5-5.7); Albumin/Globulin Ratio 2.3 (1.1-2.2); Alkaline Phosphatase 102 Units/L (34-104); Aspartate Amino Transferase 15 Units/L (13-39); BUN/Creatinine Ratio 16 (6-26); Bilirubin,Total 2.6 mg/dL (0.3-1.0); Blood Urea Nitrogen 18 mg/dL (6-20); Calcium 8.6 mg/dL (8.6-10.3); Carbon Dioxide 40 mEq/L (23-29); Chloride 94 mEq/L (98-107); Globulin 1.6 g/dL (2.4-3.5); Glucose 257 mg/dL (70-105); Osmolality,Calculated 299 (280-300); Potassium 4.1 mEq/L (3.5-5.1); Sodium 139 mEq/L (136-145); Total Protein 5.2 g/dL (6.4-8.9); eGFR For African Americans > 60 (> 60); eGFR For Non-African Americans > 60 (> 60)
[2020-03-23] MEDS ORDERED: Naloxone 0.4 MG/ML INJ IVP PRN (22:08)
[2020-03-23] MEDS ORDERED: Nitroglycerin 0.4 MG TAB.SUBL SL PRN (22:11)
[2020-03-23] MEDS ORDERED: ALPRAZolam 1 MG TABLET PO PRN (22:11)
[2020-03-23] MEDS ORDERED: *HR* OxyCODONE Immed Rel 5 MG TABLET PO PRN (22:13)
[2020-03-23] MEDS ORDERED: Insulin DETEMIR 100 UNIT/ML X5UNITS SQ ONE (22:15)
[2020-03-23] MEDS ORDERED: Insulin LISPRO 300 UNITS/3 ML VIAL SQ SCH (22:30)
[2020-03-23] MEDS ORDERED: 0.9 % Sodium Chloride 500 ML ONE (23:31)
[2020-03-23] MEDS ORDERED: Ipratropium/Albuterol Neb 3 ML IH PRN (23:46)
[2020-03-24 07:08] VITALS: BP 110/57
[2020-03-24] MEDS: Insulin LISPRO 300 UNITS/3 ML VIAL SQ SCH ×2 (07:18→11:37)
[2020-03-24 08:43] LABS: VBG HCO3 37 mEq/L (21-27); VBG PCO2 39 mmHg (41-51); VBG PH 7.58 pH Units (7.32-7.42); VBG PO2 114 mmHg (25-50)
[2020-03-24 08:51] LABS: Basophils % 0.9 %; Red Cell Distribution Width 17.9 % (11.5-14.5)
[2020-03-24 08:52] LABS: Eosinophils # 0.1 K/mcL (0.0-0.6); Eosinophils % 2.6 %; Hematocrit 26.6 % (37.5-50.1); Hemoglobin 8.6 g/dL (12.9-16.9); Immature Granulocytes % 3.5 % (0-4); Immature Platelets 2.4 % (1.1-6.1); Lymphocytes # 0.5 K/mcL (0.6-4.6); Lymphocytes % 14.9 %; Mean Corpuscular HGB Conc 32.3 g/dL (31.6-35.5); Mean Corpuscular Hemoglobin 29.2 pg (28.0-33.3); Mean Corpuscular Volume 90.2 fL (83.0-100.0); Mean Platelet Volume 11.1 fL (9.4-12.4); Monocytes # 0.3 K/mcL (0.0-1.3); Monocytes % 9.1 %; Neutrophils # 2.4 K/mcL (1.6-8.9); Nucleated Red Blood Cells 1.2 /100 WBC (0); Red Blood Count 2.95 M/mcL (4.19-5.50); White Blood Count 3.4 K/mcL (4.3-11.1)
[2020-03-24 08:57] LABS: Platelet Count 57 K/mcL (140-400)
[2020-03-24] MEDS ORDERED: Bumetanide 1 MG TABLET PO SCH (09:00)
[2020-03-24] MEDS ORDERED: Sucralfate 1 GM TABLET PO SCH (09:00)
[2020-03-24] MEDS ORDERED: Gabapentin 300 MG CAPSULE PO SCH (09:00)
[2020-03-24] MEDS ORDERED: Lactulose Oral Soln 20 GM/30 ML UDC PO SCH (09:00)
[2020-03-24 09:18] LABS: Alanine Aminotransferase 8 Units/L (7-52); Albumin 3.5 g/dL (3.5-5.7); Albumin/Globulin Ratio 2.3 (1.1-2.2); Alkaline Phosphatase 99 Units/L (34-104); Aspartate Amino Transferase 15 Units/L (13-39); BUN/Creatinine Ratio 15 (6-26); Bilirubin,Total 3.5 mg/dL (0.3-1.0); Blood Urea Nitrogen 17 mg/dL (6-20); Calcium 8.7 mg/dL (8.6-10.3); Carbon Dioxide 42 mEq/L (23-29); Chloride 94 mEq/L (98-107); Globulin 1.5 g/dL (2.4-3.5); Glucose 242 mg/dL (70-105); Magnesium 1.8 mg/dL (1.6-2.6); Osmolality,Calculated 294 (280-300); Potassium 3.8 mEq/L (3.5-5.1); Sodium 137 mEq/L (136-145); eGFR For African Americans > 60 (> 60); eGFR For Non-African Americans > 60 (> 60)
== END 2020-03-24 13:20 | disposition home or self-care (01) ==
LOC: EMEROOARM 17:59 → 3ANU 17:59 → SUATTDRO 21:56 → 3ANU 22:08
PROVIDERS: ADMIT Internal Medicine; ATTEND Internal Medicine

== ENCOUNTER 2020-09-09 13:35 | Inpatient (IN) ==
[2020-09-09 14:17] LABS: Basophils # 0.1 K/mcL (0.0-0.2); Basophils % 0.9 %; Eosinophils # 0.4 K/mcL (0.0-0.6); Eosinophils % 4.3 %; Hematocrit 21.5 % (37.5-50.1); Hemoglobin 6.8 g/dL (12.9-16.9); Immature Granulocytes % 1.2 % (0-4); Lymphocytes # 2.3 K/mcL (0.6-4.6); Lymphocytes % 25.2 %; Mean Corpuscular HGB Conc 31.6 g/dL (31.6-35.5); Mean Corpuscular Hemoglobin 31.3 pg (28.0-33.3); Mean Corpuscular Volume 99.1 fL (83.0-100.0); Mean Platelet Volume 10.5 fL (9.4-12.4); Monocytes # 0.7 K/mcL (0.0-1.3); Monocytes % 7.5 %; Neutrophils # 5.6 K/mcL (1.6-8.9); Platelet Count 134 K/mcL (140-400); Red Blood Count 2.17 M/mcL (4.19-5.50); Red Cell Distribution Width 18.7 % (11.5-14.5); Segmented Neutrophils % 60.9 %; White Blood Count 9.1 K/mcL (4.3-11.1)
[2020-09-09 14:18] LABS: INR 1.1; Prothrombin Time 12.6 Seconds (9.4-12.1)
[2020-09-09 15:07] LABS: Alanine Aminotransferase 15 Units/L (7-52); Albumin/Globulin Ratio 1.9 (1.1-2.2); Alkaline Phosphatase 100 Units/L (34-104); Aspartate Amino Transferase 17 Units/L (13-39); BUN/Creatinine Ratio 20 (6-26); Bilirubin,Direct 0.4 mg/dL (0.0-0.2); Bilirubin,Indirect 1.6 mg/dL (0.0-1.0); Blood Urea Nitrogen 38 mg/dL (6-20); Calcium 8.6 mg/dL (8.6-10.3); Carbon Dioxide 27 mEq/L (23-29); Chloride 94 mEq/L (98-107); Ethanol < 10 mg/dL (Less than 10); Globulin 1.6 g/dL (2.4-3.5); Glucose 219 mg/dL (70-105); Osmolality,Calculated 288 (280-300); Potassium 5.1 mEq/L (3.5-5.1); Sodium 131 mEq/L (136-145); Total Protein 4.6 g/dL (6.4-8.9); Troponin I < 0.03 ng/mL (< 0.04); eGFR For African Americans 45 (> 60); eGFR For Non-African Americans 37 (> 60)
[2020-09-09 15:34] LABS: Bilirubin,Urine Negative (Negative); Blood,Urine Negative (Negative); Clarity,Urine Clear (Clear); Color,Urine Light-Yellow (Yellow); Glucose,Urine (UA) Normal (Normal); Ketones,Urine Negative (Negative); Leukocyte Esterase,Urine Negative (Negative); Nitrite,Urine Negative (Negative); Protein,Urine Negative (Neg-Trace); Specific Gravity,Urine 1.013 (1.010-1.025); Urobilinogen,Urine Normal (Normal)
[2020-09-09 15:44] LABS: Amphetamine Screen,Urine Negative ng/mL (Cutoff=1000); Barbiturate Screen,Urine Negative ng/mL (Cutoff=200); Benzodiazepines Screen,Urine Positive ng/mL (Cutoff=200); Cannabinoid Screen,Urine Negative ng/mL (Cutoff = 50); Cocaine Screen,Urine Negative ng/mL (Cutoff= 300); Opiate Screen,Urine Negative ng/mL (Cutoff=300); Phencyclidine Screen,Urine Negative ng/mL (Cutoff=25)
[2020-09-09] MEDS ORDERED: Ondansetron 4 MG/2 ML VIAL IVP PRN (17:32)
[2020-09-09] MEDS ORDERED: Naloxone 0.4 MG/ML INJ IVP PRN (17:32)
[2020-09-09] MEDS ORDERED: Bumetanide 1 MG TABLET PO ONE (17:38)
[2020-09-09] MEDS ORDERED: *HR* OxyCODONE Immed Rel 5 MG TABLET PO PRN (17:39)
[2020-09-09] MEDS ORDERED: cefTRIAXone 1,000 MG in 0.9 % Sodium Chloride Mini Bag 100 ML IVPB ONE (17:51)
[2020-09-09] MEDS ORDERED: Dextrose Gel 15 GM/37.5 ML TUBE PO PRN ×2 (17:55)
[2020-09-09] MEDS ORDERED: *HR* Dextrose 50 % in Water (Vial) 50 ML VIAL IVP PRN (17:55)
[2020-09-09] MEDS ORDERED: D5% in Water 1,000 ML IVC PRN (17:55)
[2020-09-09] MEDS ORDERED: 0.9 % Sodium Chloride 250 ML ONE (20:12)
[2020-09-10] MEDS: Lactulose Oral Soln 20 GM/30 ML UDC PO SCH ×4 (00:39→20:19)
[2020-09-10] MEDS: Sucralfate 1 GM TABLET PO SCH ×3 (00:39→20:19)
[2020-09-10] MEDS ORDERED: 0.9 % Sodium Chloride 250 ML ONE (00:53)
[2020-09-10] MEDS: Insulin LISPRO 300 UNITS/3 ML VIAL SQ SCH ×4 (01:13→20:20)
[2020-09-10] MEDS ORDERED: Acetaminophen 325 MG TABLET PO PRN (04:20)
[2020-09-10 06:50] LABS: INR 1.1
[2020-09-10 07:29] LABS: Albumin 2.9 g/dL (3.5-5.7); Albumin/Globulin Ratio 2.1 (1.1-2.2); Bilirubin,Direct 0.4 mg/dL (0.0-0.2); Bilirubin,Indirect 1.8 mg/dL (0.0-1.0); Bilirubin,Total 2.2 mg/dL (0.3-1.0); Calcium 8.6 mg/dL (8.6-10.3); Globulin 1.4 g/dL (2.4-3.5); Magnesium 1.7 mg/dL (1.6-2.6); Phosphorous 3.3 mg/dL (2.7-4.5); Potassium 4.4 mEq/L (3.5-5.1); Total Protein 4.3 g/dL (6.4-8.9)
[2020-09-10] MEDS ORDERED: Insulin LISPRO 300 UNITS/3 ML VIAL SQ SCH (07:30)
[2020-09-10] MEDS: Bumetanide 1 MG TABLET PO SCH ×2 (07:52→16:38)
[2020-09-10] MEDS: *HR* OxyCODONE Immed Rel 5 MG TABLET PO PRN (08:04)
[2020-09-10 09:38] LABS: Mean Platelet Volume 9.9 fL (9.4-12.4); Red Cell Distribution Width 19.1 % (11.5-14.5)
[2020-09-10 09:40] LABS: Basophils % 0.6 %; Eosinophils # 0.1 K/mcL (0.0-0.6); Eosinophils % 3.4 %; Hematocrit 21.4 % (37.5-50.1); Hemoglobin 6.9 g/dL (12.9-16.9); Immature Granulocytes % 0.8 % (0-4); Immature Platelets 3.5 % (1.1-6.1); Lymphocytes % 27.7 %; Mean Corpuscular HGB Conc 32.2 g/dL (31.6-35.5); Mean Corpuscular Hemoglobin 30.1 pg (28.0-33.3); Mean Corpuscular Volume 93.4 fL (83.0-100.0); Monocytes # 0.4 K/mcL (0.0-1.3); Monocytes % 12.4 %; Red Blood Count 2.29 M/mcL (4.19-5.50); Segmented Neutrophils % 55.1 %; White Blood Count 3.5 K/mcL (4.3-11.1)
[2020-09-10 09:41] LABS: Neutrophils # 1.9 K/mcL (1.6-8.9); Platelet Count 76 K/mcL (140-400)
[2020-09-10 11:04] LABS: Hematocrit 21.5 % (37.5-50.1)
[2020-09-10] MEDS ORDERED: Cyanocobalamin (B-12) 1,000 MCG/ML VIAL IM ONE (11:48)
[2020-09-10] MEDS ORDERED: cefTRIAXone 2,000 MG in Water for inj. (sterile) 20 ML IVP SCH (12:00)
[2020-09-10 16:58] LABS: RBC,Peritoneal Fluid 11000 RBC/mcL
[2020-09-10 17:02] LABS: Appearance of Peritoneal Fl CLOUDY (Clear)
[2020-09-10 17:16] LABS: Glucose,Peritoneal Fluid 326 mg/dL (No Ref Range); LDH,Peritoneal Fluid 31 Units/L (No Ref Range); Total Protein,Peritoneal Fluid < 2.0 g/dL
[2020-09-10 18:23] LABS: % Iron Saturation 102 % (20-55); Iron 383 mcg/dL (65-175); Lactate Dehydrogenase 122 Units/L (140-271); Transferrin 269 mg/dL (203-362)
[2020-09-10 18:29] LABS: Folate 8.3 ng/mL (3.0-16.0)
[2020-09-10 19:26] LABS: Vitamin B12 > 1500 pg/mL (250-1100)
[2020-09-10 19:42] LABS: Basophils,Peritoneal Fluid 0 %; Eosinophils,Peritoneal Fluid 0 %
[2020-09-10] MEDS: Insulin DETEMIR 100 UNIT/ML X5UNITS SQ SCH (20:19)
[2020-09-11] MEDS: *HR* OxyCODONE Immed Rel 5 MG TABLET PO PRN (00:11)
[2020-09-11 04:26] LABS: Basophils % 0.7 %; Hemoglobin 6.8 g/dL (12.9-16.9)
[2020-09-11 04:28] LABS: Eosinophils # 0.1 K/mcL (0.0-0.6); Eosinophils % 3.7 %; Hematocrit 21.1 % (37.5-50.1); Immature Granulocytes % 1.3 % (0-4); Immature Platelets 3.5 % (1.1-6.1); Lymphocytes % 33.2 %; Mean Corpuscular HGB Conc 32.2 g/dL (31.6-35.5); Mean Corpuscular Hemoglobin 30.8 pg (28.0-33.3); Mean Corpuscular Volume 95.5 fL (83.0-100.0); Monocytes # 0.4 K/mcL (0.0-1.3); Monocytes % 11.6 %; Neutrophils # 1.5 K/mcL (1.6-8.9); Red Blood Count 2.21 M/mcL (4.19-5.50); Red Cell Distribution Width 18.8 % (11.5-14.5); Segmented Neutrophils % 49.5 %
[2020-09-11 04:30] LABS: Platelet Count 76 K/mcL (140-400)
[2020-09-11 04:39] LABS: Calcium 8.4 mg/dL (8.6-10.3); Magnesium 1.4 mg/dL (1.6-2.6); Phosphorous 3.5 mg/dL (2.7-4.5); Potassium 3.7 mEq/L (3.5-5.1)
[2020-09-11 07:33] VITALS: BP 125/85
[2020-09-11] MEDS: Sucralfate 1 GM TABLET PO SCH (07:57)
[2020-09-11] MEDS: Bumetanide 1 MG TABLET PO SCH (07:57)
[2020-09-11] MEDS: Lactulose Oral Soln 20 GM/30 ML UDC PO SCH (07:59)
[2020-09-11] MEDS: Insulin LISPRO 300 UNITS/3 ML VIAL SQ SCH (08:03)
[2020-09-11] MEDS: Insulin DETEMIR 100 UNIT/ML X5UNITS SQ SCH (08:08)
== END 2020-09-11 12:21 | disposition home or self-care (01) | DRG 432 ==
LOC: EMEROOARM 13:35 → 3BNU 13:35 → SUATTDRO 16:44 → 3BNU 17:45
PROVIDERS: ADMIT Internal Medicine; ATTEND Internal Medicine

== ENCOUNTER 2020-09-20 09:09 | Observation (INO) ==
[2020-09-20 09:35] LABS: Hemoglobin 6.8 g/dL (12.9-16.9)
[2020-09-20 09:37] LABS: Basophils % 0.8 %; Eosinophils # 0.2 K/mcL (0.0-0.6); Eosinophils % 5.5 %; Hematocrit 21.9 % (37.5-50.1); Immature Granulocytes % 0.8 % (0-4); Lymphocytes # 0.4 K/mcL (0.6-4.6); Lymphocytes % 10.3 %; Mean Corpuscular HGB Conc 31.1 g/dL (31.6-35.5); Mean Corpuscular Hemoglobin 29.8 pg (28.0-33.3); Mean Corpuscular Volume 96.1 fL (83.0-100.0); Mean Platelet Volume 9.6 fL (9.4-12.4); Monocytes # 0.8 K/mcL (0.0-1.3); Monocytes % 20.8 %; Neutrophils # 2.4 K/mcL (1.6-8.9); Red Blood Count 2.28 M/mcL (4.19-5.50); Red Cell Distribution Width 17.4 % (11.5-14.5); Segmented Neutrophils % 61.8 %; White Blood Count 3.8 K/mcL (4.3-11.1)
[2020-09-20 09:39] LABS: Platelet Count 95 K/mcL (140-400)
[2020-09-20 09:47] LABS: INR 1.1
[2020-09-20 09:50] LABS: Activated Partial Thrombo Time 29.2 Seconds (26.0-36.0)
[2020-09-20 09:57] LABS: Alanine Aminotransferase 20 Units/L (7-52); Albumin 3.1 g/dL (3.5-5.7); Albumin/Globulin Ratio 1.8 (1.1-2.2); Alkaline Phosphatase 148 Units/L (34-104); Aspartate Amino Transferase 20 Units/L (13-39); BUN/Creatinine Ratio 24 (6-26); Bilirubin,Total 1.4 mg/dL (0.3-1.0); Blood Urea Nitrogen 46 mg/dL (6-20); Calcium 9.2 mg/dL (8.6-10.3); Carbon Dioxide 27 mEq/L (23-29); Chloride 98 mEq/L (98-107); Ethanol < 10 mg/dL (Less than 10); Globulin 1.7 g/dL (2.4-3.5); Glucose 253 mg/dL (70-105); Lipase 95 Units/L (11-82); Osmolality,Calculated 296 (280-300); Platelet Estimate Decreased (Normal); Potassium 4.6 mEq/L (3.5-5.1); Sodium 133 mEq/L (136-145); Total Protein 4.8 g/dL (6.4-8.9); Troponin I 0.03 ng/mL (< 0.04); eGFR For African Americans 44 (> 60); eGFR For Non-African Americans 36 (> 60)
[2020-09-20 09:58] LABS: Anisocytosis 1+ (Not Present)
[2020-09-20 10:00] LABS: VBG HCO3 27 mEq/L (21-27); VBG PCO2 42 mmHg (41-51); VBG PH 7.41 pH Units (7.32-7.42); VBG PO2 146 mmHg (25-50)
[2020-09-20 10:10] LABS: Thyroid Stimulating Hormone 4.743 mcIU/mL (0.340-5.600)
[2020-09-20] MEDS ORDERED: Lactulose Oral Soln 20 GM/30 ML UDC PO ONE (10:57)
[2020-09-20] MEDS ORDERED: Furosemide 40 MG/4 ML VIAL IVP ONE (10:59)
[2020-09-20 11:11] LABS: Bilirubin,Urine Negative (Negative); Blood,Urine Negative (Negative); Clarity,Urine Clear (Clear); Color,Urine Light-Yellow (Yellow); Glucose,Urine (UA) Normal (Normal); Ketones,Urine Negative (Negative); Leukocyte Esterase,Urine Negative (Negative); Nitrite,Urine Negative (Negative); PH,Urine 5.5 pH Units (5.0-8.0); Protein,Urine Negative (Neg-Trace); Specific Gravity,Urine 1.011 (1.010-1.025); Urobilinogen,Urine Normal (Normal)
[2020-09-20] MEDS ORDERED: 0.9 % Sodium Chloride 250 ML ONE (11:17)
[2020-09-20] MEDS ORDERED: Nitroglycerin 0.4 MG TAB.SUBL SL PRN (12:39)
[2020-09-20] MEDS ORDERED: Lactulose 200 GM, Sodium Chloride IRRigation 700 ML RC ONE (14:28)
[2020-09-20] MEDS: Lactulose Oral Soln 20 GM/30 ML UDC PO SCH ×3 (14:31→21:09)
[2020-09-20] MEDS ORDERED: Gabapentin 300 MG CAPSULE PO SCH (21:00)
[2020-09-20] MEDS: Sucralfate 1 GM TABLET PO SCH (21:09)
[2020-09-20] MEDS: Bumetanide 1 MG TABLET PO SCH (21:09)
[2020-09-21] MEDS ORDERED: Ipratropium/Albuterol Neb 3 ML IH PRN (08:16)
[2020-09-21] MEDS: Bumetanide 1 MG TABLET PO SCH ×2 (08:25→21:52)
[2020-09-21] MEDS: Sucralfate 1 GM TABLET PO SCH ×2 (08:25→21:52)
[2020-09-21] MEDS: Lactulose Oral Soln 20 GM/30 ML UDC PO SCH ×3 (08:25→21:52)
[2020-09-21 08:38] LABS: ABG Base Excess 7 mEq/L (-2 to 3); ABG HCO3 32 mEq/L (21-27); ABG Oxygen Saturation 99 % (95-98); ABG PCO2 51 mmHg (35-45); ABG PO2 122 mmHg (85-104); ABG TCO2 34 mEq/L (20-26)
[2020-09-21 09:25] LABS: Eosinophils # 0.3 K/mcL (0.0-0.6); Hematocrit 24.5 % (37.5-50.1); Hemoglobin 7.6 g/dL (12.9-16.9); Lymphocytes # 0.7 K/mcL (0.6-4.6); Mean Corpuscular Hemoglobin 29.9 pg (28.0-33.3); Mean Corpuscular Volume 96.5 fL (83.0-100.0); Mean Platelet Volume 9.4 fL (9.4-12.4); Red Blood Count 2.54 M/mcL (4.19-5.50); White Blood Count 2.9 K/mcL (4.3-11.1)
[2020-09-21 09:26] LABS: Platelet Count 94 K/mcL (140-400)
[2020-09-21 09:28] LABS: INR 1.2; Prothrombin Time 13.4 Seconds (9.4-12.1)
[2020-09-21 09:31] LABS: Activated Partial Thrombo Time 29.3 Seconds (26.0-36.0)
[2020-09-21 09:43] LABS: Albumin 3.1 g/dL (3.5-5.7); Albumin/Globulin Ratio 1.9 (1.1-2.2); Bilirubin,Total 2.1 mg/dL (0.3-1.0); Globulin 1.6 g/dL (2.4-3.5); Magnesium 1.5 mg/dL (1.6-2.6); Phosphorous 3.2 mg/dL (2.7-4.5); Potassium 3.9 mEq/L (3.5-5.1); Total Protein 4.7 g/dL (6.4-8.9)
[2020-09-21 09:44] LABS: Acetaminophen < 10 mcg/mL (10-20); Basophils # 0.1 K/mcL (0.0-0.2); Monocytes # 0.3 K/mcL (0.0-1.3); Neutrophils # 1.7 K/mcL (1.6-8.9); Platelet Estimate Slight Decrease (Normal); Salicylate < 2.5 mg/dL (15.0-30.0)
[2020-09-21 09:45] LABS: Anisocytosis 1+ (Not Present); Reactive Lymphocytes Present (Not Present)
[2020-09-21] MEDS: Albumin 25% 25gram/100mL 25 GM/100 ML IV.SOLN IVPB SCH ×2 (12:31→21:52)
[2020-09-21] MEDS ORDERED: Saline Nasal Spray 44 ML BOTTLE NS PRN (12:39)
[2020-09-21 13:02] LABS: Adenovirus Not Detected (Not Detect); Coronavirus 229E Not Detected (Not Detect); Coronavirus HKU1 Not Detected (Not Detect); Coronavirus NL63 Not Detected (Not Detect); Coronavirus OC43 Not Detected (Not Detect); Human Metapneumovirus Not Detected (Not Detect); Human Rhinovirus/Enterovirus Not Detected (Not Detect); Influenza A Subtype 2009 H1 Not Detected (Not Detect); Influenza B Not Detected (Not Detect); Parainfluenza Virus 1 Not Detected (Not Detect); Parainfluenza Virus 2 Not Detected (Not Detect); Parainfluenza Virus 3 Not Detected (Not Detect); Parainfluenza Virus 4 Not Detected (Not Detect); Respiratory Syncytial Virus Not Detected (Not Detect); SARS-CoV-2 Not Detected (Not Detect)
[2020-09-21 13:03] LABS: Bordetella Pertussis Not Detected (Not Detect); Chlamydophila pneumoniae Not Detected (Not Detect); Mycoplasma pneumoniae Not Detected (Not Detect)
[2020-09-21 15:30] LABS: Estimated Average Glucose 108 mg/dl; Hemoglobin A1C 5.4 %
[2020-09-21] MEDS: Insulin LISPRO 300 UNITS/3 ML VIAL SUBQ SCH ×2 (17:26)
[2020-09-21] MEDS: Insulin DETEMIR 100 UNIT/ML X5UNITS SUBQ SCH (21:52)
[2020-09-21] MEDS: Primidone 50 MG TABLET PO SCH (21:52)
[2020-09-22 07:52] LABS: Basophils % 0.8 %; Eosinophils # 0.1 K/mcL (0.0-0.6); Eosinophils % 5.2 %; Hematocrit 22.5 % (37.5-50.1); Hemoglobin 7.3 g/dL (12.9-16.9); Immature Granulocytes % 0.4 % (0-4); Lymphocytes # 0.5 K/mcL (0.6-4.6); Lymphocytes % 20.9 %; Mean Corpuscular HGB Conc 32.4 g/dL (31.6-35.5); Mean Corpuscular Hemoglobin 30.7 pg (28.0-33.3); Mean Corpuscular Volume 94.5 fL (83.0-100.0); Mean Platelet Volume 9.7 fL (9.4-12.4); Monocytes # 0.3 K/mcL (0.0-1.3); Monocytes % 10.4 %; Neutrophils # 1.6 K/mcL (1.6-8.9); Platelet Count 74 K/mcL (140-400); Red Blood Count 2.38 M/mcL (4.19-5.50); Red Cell Distribution Width 17.2 % (11.5-14.5); Segmented Neutrophils % 62.3 %; White Blood Count 2.5 K/mcL (4.3-11.1)
[2020-09-22 08:14] LABS: Magnesium 1.6 mg/dL (1.6-2.6); Phosphorous 3.3 mg/dL (2.7-4.5); Potassium 3.6 mEq/L (3.5-5.1)
[2020-09-22 08:15] LABS: Platelet Estimate Decreased (Normal)
[2020-09-22] MEDS: Multivit/Ca/Min/Fe/FA 1 TAB TABLET PO SCH (08:21)
[2020-09-22] MEDS: Bumetanide 1 MG TABLET PO SCH ×2 (08:21→21:16)
[2020-09-22] MEDS: Lactulose Oral Soln 20 GM/30 ML UDC PO SCH ×3 (08:21→21:17)
[2020-09-22] MEDS: Primidone 50 MG TABLET PO SCH ×2 (08:23→21:14)
[2020-09-22] MEDS: Insulin LISPRO 300 UNITS/3 ML VIAL SUBQ SCH ×6 (08:23→18:00)
[2020-09-22] MEDS: Sucralfate 1 GM TABLET PO SCH ×2 (08:23→21:16)
[2020-09-22] MEDS: Albumin 25% 25gram/100mL 25 GM/100 ML IV.SOLN IVPB SCH ×2 (09:11→21:28)
[2020-09-22 11:06] LABS: Amphetamine Screen,Urine Negative ng/mL (Cutoff=1000); Barbiturate Screen,Urine Negative ng/mL (Cutoff=200); Benzodiazepines Screen,Urine Negative ng/mL (Cutoff=200); Cannabinoid Screen,Urine Negative ng/mL (Cutoff = 50); Cocaine Screen,Urine Negative ng/mL (Cutoff= 300); Opiate Screen,Urine Negative ng/mL (Cutoff=300); Phencyclidine Screen,Urine Negative ng/mL (Cutoff=25)
[2020-09-22 11:34] LABS: Hematocrit 20.5 % (37.5-50.1); Hemoglobin 6.6 g/dL (12.9-16.9)
[2020-09-22] MEDS ORDERED: 0.9 % Sodium Chloride 250 ML ONE (14:17)
[2020-09-22] MEDS ORDERED: Albumin 25% 25gram/100mL 25 GM/100 ML IV.SOLN IVPB SCH (16:00)
[2020-09-22] MEDS ORDERED: Albumin 25% 25gram/100mL 25 GM/100 ML IV.SOLN IVPB ONE (16:02)
[2020-09-22] MEDS: ALPRAZolam 1 MG TABLET PO PRN (21:14)
[2020-09-22] MEDS: Insulin DETEMIR 100 UNIT/ML X5UNITS SUBQ SCH (21:20)
[2020-09-22 21:30] LABS: Basophils % 0.4 %; Eosinophils # 0.1 K/mcL (0.0-0.6); Eosinophils % 4.8 %; Hematocrit 23.2 % (37.5-50.1); Hemoglobin 7.5 g/dL (12.9-16.9); Immature Granulocytes % 0.8 % (0-4); Lymphocytes # 0.4 K/mcL (0.6-4.6); Lymphocytes % 14.1 %; Mean Corpuscular HGB Conc 32.3 g/dL (31.6-35.5); Mean Corpuscular Hemoglobin 29.6 pg (28.0-33.3); Mean Corpuscular Volume 91.7 fL (83.0-100.0); Mean Platelet Volume 9.4 fL (9.4-12.4); Monocytes # 0.3 K/mcL (0.0-1.3); Neutrophils # 1.8 K/mcL (1.6-8.9); Red Blood Count 2.53 M/mcL (4.19-5.50); Red Cell Distribution Width 16.8 % (11.5-14.5); Segmented Neutrophils % 69.9 %; White Blood Count 2.5 K/mcL (4.3-11.1)
[2020-09-22 21:31] LABS: Platelet Count 67 K/mcL (140-400)
[2020-09-23] MEDS: Albumin 25% 25gram/100mL 25 GM/100 ML IV.SOLN IVPB SCH (05:07)
[2020-09-23 06:45] LABS: Albumin 3.6 g/dL (3.5-5.7); Albumin/Globulin Ratio 2.8 (1.1-2.2); Bilirubin,Total 2.5 mg/dL (0.3-1.0); Calcium 8.8 mg/dL (8.6-10.3); Globulin 1.3 g/dL (2.4-3.5); Magnesium 1.8 mg/dL (1.6-2.6); Phosphorous 3.8 mg/dL (2.7-4.5); Potassium 3.4 mEq/L (3.5-5.1); Total Protein 4.9 g/dL (6.4-8.9)
[2020-09-23 07:56] LABS: Basophils % 0.4 %; Eosinophils # 0.1 K/mcL (0.0-0.6); Eosinophils % 5.3 %; Hematocrit 23.5 % (37.5-50.1); Hemoglobin 7.4 g/dL (12.9-16.9); Immature Granulocytes % 0.4 % (0-4); Lymphocytes # 0.4 K/mcL (0.6-4.6); Lymphocytes % 18.1 %; Mean Corpuscular HGB Conc 31.5 g/dL (31.6-35.5); Mean Corpuscular Hemoglobin 28.9 pg (28.0-33.3); Mean Corpuscular Volume 91.8 fL (83.0-100.0); Monocytes # 0.2 K/mcL (0.0-1.3); Monocytes % 10.1 %; Neutrophils # 1.5 K/mcL (1.6-8.9); Red Blood Count 2.56 M/mcL (4.19-5.50); Red Cell Distribution Width 17.1 % (11.5-14.5); Segmented Neutrophils % 65.7 %; White Blood Count 2.3 K/mcL (4.3-11.1)
[2020-09-23 07:57] LABS: Platelet Count 71 K/mcL (140-400)
[2020-09-23] MEDS: Bumetanide 1 MG TABLET PO SCH (08:56)
[2020-09-23] MEDS: Primidone 50 MG TABLET PO SCH (08:56)
[2020-09-23] MEDS: ALPRAZolam 1 MG TABLET PO PRN (08:57)
[2020-09-23] MEDS: Multivit/Ca/Min/Fe/FA 1 TAB TABLET PO SCH (08:57)
[2020-09-23] MEDS: Sucralfate 1 GM TABLET PO SCH (08:57)
[2020-09-23] MEDS: Lactulose Oral Soln 20 GM/30 ML UDC PO SCH (08:58)
[2020-09-23] MEDS: Insulin LISPRO 300 UNITS/3 ML VIAL SUBQ SCH ×4 (08:59→11:55)
[2020-09-23 11:05] VITALS: BP 113/50
[2020-09-23 12:01] LABS: Hemoglobin 7.6 g/dL (12.9-16.9)
[2020-09-23] MEDS ORDERED: ALPRAZolam 1 MG TABLET PO SCH (21:00)
== END 2020-09-23 14:41 | disposition home health service (06) ==
LOC: 2ANU 09:09 → EMEROOARM 09:09 → SUATTDRO 11:17 → 2ANU 12:00
PROVIDERS: ADMIT Student in an Organized Health Care Education/Training Program; ATTEND Internal Medicine

== ENCOUNTER 2020-10-05 09:59 | Inpatient (IN) ==
[2020-10-05 10:36] LABS: Basophils % 0.3 %; Eosinophils % 1.3 %; Hematocrit 16.6 % (37.5-50.1); Lymphocytes % 17.6 %; Mean Corpuscular HGB Conc 30.7 g/dL (31.6-35.5); Mean Corpuscular Hemoglobin 29.8 pg (28.0-33.3); Mean Corpuscular Volume 97.1 fL (83.0-100.0); Mean Platelet Volume 10.6 fL (9.4-12.4); Monocytes # 0.3 K/mcL (0.0-1.3); Monocytes % 9.8 %; Red Blood Count 1.71 M/mcL (4.19-5.50); White Blood Count 3.1 K/mcL (4.3-11.1)
[2020-10-05 10:37] LABS: Lymphocytes # 0.6 K/mcL (0.6-4.6); Neutrophils # 2.2 K/mcL (1.6-8.9); Platelet Count 70 K/mcL (140-400)
[2020-10-05 10:39] LABS: Hemoglobin 5.1 g/dL (12.9-16.9); INR 1.1; Prothrombin Time 12.2 Seconds (9.4-12.1)
[2020-10-05 10:42] LABS: Activated Partial Thrombo Time 29.1 Seconds (26.0-36.0)
[2020-10-05 10:50] LABS: Platelet Estimate Decreased (Normal)
[2020-10-05 10:51] LABS: Anisocytosis 1+ (Not Present)
[2020-10-05 11:18] LABS: Alanine Aminotransferase 24 Units/L (7-52); Albumin 3.4 g/dL (3.5-5.7); Alkaline Phosphatase 149 Units/L (34-104); Aspartate Amino Transferase 27 Units/L (13-39); BUN/Creatinine Ratio 23 (6-26); Bilirubin,Total 1.8 mg/dL (0.3-1.0); Blood Urea Nitrogen 44 mg/dL (6-20); Calcium 9.4 mg/dL (8.6-10.3); Carbon Dioxide 32 mEq/L (23-29); Chloride 89 mEq/L (98-107); Globulin 1.7 g/dL (2.4-3.5); Glucose 198 mg/dL (70-105); Osmolality,Calculated 291 (280-300); Potassium 4.2 mEq/L (3.5-5.1); Sodium 132 mEq/L (136-145); Total Protein 5.1 g/dL (6.4-8.9); Troponin I < 0.03 ng/mL (< 0.04); eGFR For African Americans 44 (> 60); eGFR For Non-African Americans 37 (> 60)
[2020-10-05] MEDS ORDERED: 0.9 % Sodium Chloride 250 ML ONE ×2 (11:56→16:07)
[2020-10-05] MEDS ORDERED: Pantoprazole 40 MG VIAL IVP ONE (12:09)
[2020-10-05] MEDS ORDERED: Naloxone 0.4 MG/ML INJ IVP PRN (12:41)
[2020-10-05] MEDS ORDERED: Ondansetron ODT 4 MG TAB.RAPDIS SL PRN (12:41)
[2020-10-05] MEDS ORDERED: *HR* Dextrose 50 % in Water (Vial) 50 ML VIAL IVP PRN (14:24)
[2020-10-05] MEDS ORDERED: D5% in Water 1,000 ML IVC PRN (14:24)
[2020-10-05] MEDS ORDERED: Dextrose Gel 15 GM/37.5 ML TUBE PO PRN ×2 (14:24)
[2020-10-05] MEDS ORDERED: Octreotide 50 MCG/ML INJ IVP SCH (16:00)
[2020-10-05] MEDS: cefTRIAXone 1,000 MG in Water for inj. (sterile) 10 ML IVP SCH (16:11)
[2020-10-05] MEDS ORDERED: NON-FORMULARY MEDICATION 1 EACH EACH (Pantoprazole Sodium [Protonix] 40 MG) PO SCH (17:15)
[2020-10-05] MEDS: Insulin LISPRO 300 UNITS/3 ML VIAL SUBQ SCH (18:26)
[2020-10-05] MEDS: Octreotide 400 MCG in 0.9 % Sodium Chloride 100 ML IVC SCH (19:49)
[2020-10-05] MEDS: Bumetanide 1 MG TABLET PO SCH (21:00)
[2020-10-05] MEDS: Lactulose Oral Soln 20 GM/30 ML UDC PO SCH (21:00)
[2020-10-05] MEDS: Gabapentin 300 MG CAPSULE PO SCH (21:00)
[2020-10-05] MEDS: Sucralfate 1 GM TABLET PO SCH (21:01)
[2020-10-05] MEDS: ALPRAZolam 1 MG TABLET PO PRN (21:48)
[2020-10-05] MEDS: Insulin DETEMIR 100 UNIT/ML X5UNITS SUBQ SCH (21:49)
[2020-10-06 00:35] LABS: Basophils % 0.3 %; Hematocrit 18.7 % (37.5-50.1); Monocytes % 12.7 %
[2020-10-06 00:36] LABS: Eosinophils # 0.1 K/mcL (0.0-0.6); Eosinophils % 2.7 %; Immature Granulocytes % 0.7 % (0-4); Lymphocytes # 0.7 K/mcL (0.6-4.6); Lymphocytes % 22.7 %; Mean Corpuscular HGB Conc 31.6 g/dL (31.6-35.5); Mean Corpuscular Hemoglobin 28.9 pg (28.0-33.3); Mean Corpuscular Volume 91.7 fL (83.0-100.0); Mean Platelet Volume 10.5 fL (9.4-12.4); Monocytes # 0.4 K/mcL (0.0-1.3); Neutrophils # 1.8 K/mcL (1.6-8.9); Red Blood Count 2.04 M/mcL (4.19-5.50); Red Cell Distribution Width 17.2 % (11.5-14.5); Segmented Neutrophils % 60.9 %
[2020-10-06 00:40] LABS: Platelet Count 70 K/mcL (140-400)
[2020-10-06 00:44] LABS: Hemoglobin 5.9 g/dL (12.9-16.9)
[2020-10-06 00:54] LABS: Albumin 3.2 g/dL (3.5-5.7); Calcium 8.7 mg/dL (8.6-10.3); Globulin 1.6 g/dL (2.4-3.5); Potassium 4.2 mEq/L (3.5-5.1); Total Protein 4.8 g/dL (6.4-8.9)
[2020-10-06] MEDS ORDERED: 0.9 % Sodium Chloride 250 ML IVC SCH (02:00)
[2020-10-06] MEDS: Insulin LISPRO 300 UNITS/3 ML VIAL SUBQ SCH ×4 (02:14→18:33)
[2020-10-06] MEDS: ALPRAZolam 1 MG TABLET PO PRN ×2 (09:39→21:53)
[2020-10-06] MEDS: Gabapentin 300 MG CAPSULE PO SCH ×2 (09:39→21:04)
[2020-10-06] MEDS: Sucralfate 1 GM TABLET PO SCH ×2 (09:40→21:04)
[2020-10-06] MEDS: Bumetanide 1 MG TABLET PO SCH (09:40)
[2020-10-06] MEDS: Pantoprazole 40 MG VIAL IVP SCH (09:41)
[2020-10-06] MEDS: cefTRIAXone 1,000 MG in Water for inj. (sterile) 10 ML IVP SCH (09:41)
[2020-10-06] MEDS: IBRUTINIB 280 MG PO SCH (09:41)
[2020-10-06] MEDS: Lactulose Oral Soln 20 GM/30 ML UDC PO SCH ×3 (09:47→21:04)
[2020-10-06] MEDS: Insulin DETEMIR 100 UNIT/ML X5UNITS SUBQ SCH ×2 (09:47→21:04)
[2020-10-06] MEDS: Octreotide 400 MCG in 0.9 % Sodium Chloride 100 ML IVC SCH (13:45)
[2020-10-06] MEDS ORDERED: Lidocaine -MPF 2% 2 ML VIAL ONE (14:23)
[2020-10-06] MEDS ORDERED: *HR* Propofol 200 MG/20 ML VIAL IVP ONE (14:25)
[2020-10-06 14:32] LABS: Hematocrit 25.9 % (37.5-50.1)
[2020-10-06 14:53] LABS: Hemoglobin 8.1 g/dL (12.9-16.9)
[2020-10-06 22:19] LABS: Hematocrit 25.1 % (37.5-50.1)
[2020-10-07] MEDS: Insulin LISPRO 300 UNITS/3 ML VIAL SUBQ SCH ×5 (00:30→20:37)
[2020-10-07 06:31] LABS: Basophils % 0.6 %; Eosinophils # 0.1 K/mcL (0.0-0.6); Hematocrit 25.9 % (37.5-50.1); Hemoglobin 8.1 g/dL (12.9-16.9); Immature Granulocytes % 0.6 % (0-4); Lymphocytes # 0.7 K/mcL (0.6-4.6); Lymphocytes % 19.6 %; Mean Corpuscular HGB Conc 31.3 g/dL (31.6-35.5); Mean Corpuscular Hemoglobin 28.7 pg (28.0-33.3); Mean Corpuscular Volume 91.8 fL (83.0-100.0); Monocytes # 0.4 K/mcL (0.0-1.3); Neutrophils # 2.3 K/mcL (1.6-8.9); Red Blood Count 2.82 M/mcL (4.19-5.50); Red Cell Distribution Width 16.7 % (11.5-14.5); Segmented Neutrophils % 66.2 %; White Blood Count 3.5 K/mcL (4.3-11.1)
[2020-10-07 06:32] LABS: Platelet Count 79 K/mcL (140-400)
[2020-10-07 06:54] LABS: Albumin 3.4 g/dL (3.5-5.7); Bilirubin,Total 2.6 mg/dL (0.3-1.0); Calcium 8.7 mg/dL (8.6-10.3); Globulin 1.7 g/dL (2.4-3.5); Potassium 4.1 mEq/L (3.5-5.1); Total Protein 5.1 g/dL (6.4-8.9)
[2020-10-07] MEDS: IBRUTINIB 280 MG PO SCH (07:55)
[2020-10-07] MEDS: Gabapentin 300 MG CAPSULE PO SCH ×3 (08:08→20:38)
[2020-10-07] MEDS: Lactulose Oral Soln 20 GM/30 ML UDC PO SCH ×3 (08:08→20:38)
[2020-10-07] MEDS: Sucralfate 1 GM TABLET PO SCH ×2 (08:08→20:38)
[2020-10-07] MEDS: Pantoprazole 40 MG VIAL IVP SCH (08:09)
[2020-10-07] MEDS: cefTRIAXone 1,000 MG in Water for inj. (sterile) 10 ML IVP SCH (08:09)
[2020-10-07] MEDS: Insulin DETEMIR 100 UNIT/ML X5UNITS SUBQ SCH ×2 (08:09→20:38)
[2020-10-07] MEDS: ALPRAZolam 1 MG TABLET PO PRN (20:38)
[2020-10-08 05:06] LABS: Basophils % 0.4 %
[2020-10-08 05:08] LABS: Eosinophils # 0.1 K/mcL (0.0-0.6); Eosinophils % 2.6 %; Hematocrit 22.1 % (37.5-50.1); Hemoglobin 7.1 g/dL (12.9-16.9); Immature Granulocytes % 0.8 % (0-4); Immature Platelets 3.8 % (1.1-6.1); Lymphocytes # 0.7 K/mcL (0.6-4.6); Lymphocytes % 24.4 %; Mean Corpuscular HGB Conc 32.1 g/dL (31.6-35.5); Mean Corpuscular Hemoglobin 29.7 pg (28.0-33.3); Mean Corpuscular Volume 92.5 fL (83.0-100.0); Mean Platelet Volume 10.7 fL (9.4-12.4); Monocytes # 0.4 K/mcL (0.0-1.3); Monocytes % 14.7 %; Neutrophils # 1.5 K/mcL (1.6-8.9); Red Blood Count 2.39 M/mcL (4.19-5.50); Red Cell Distribution Width 15.9 % (11.5-14.5); Segmented Neutrophils % 57.1 %; White Blood Count 2.7 K/mcL (4.3-11.1)
[2020-10-08 05:09] LABS: Platelet Count 74 K/mcL (140-400)
[2020-10-08 05:26] LABS: Calcium 8.3 mg/dL (8.6-10.3); Potassium 3.7 mEq/L (3.5-5.1)
[2020-10-08] MEDS: cefTRIAXone 1,000 MG in Water for inj. (sterile) 10 ML IVP SCH (07:58)
[2020-10-08] MEDS: Lactulose Oral Soln 20 GM/30 ML UDC PO SCH ×3 (07:58→21:26)
[2020-10-08] MEDS: Sucralfate 1 GM TABLET PO SCH ×2 (07:58→21:25)
[2020-10-08] MEDS: Pantoprazole 40 MG VIAL IVP SCH (07:58)
[2020-10-08] MEDS: Gabapentin 300 MG CAPSULE PO SCH ×2 (07:58→21:25)
[2020-10-08] MEDS: IBRUTINIB 280 MG PO SCH ×2 (07:59→15:10)
[2020-10-08] MEDS: Insulin LISPRO 300 UNITS/3 ML VIAL SUBQ SCH ×3 (07:59→21:28)
[2020-10-08] MEDS: Insulin DETEMIR 100 UNIT/ML X5UNITS SUBQ SCH ×2 (07:59→21:29)
[2020-10-08 10:38] LABS: Bilirubin,Direct 0.6 mg/dL (0.0-0.2); Bilirubin,Indirect 2.2 mg/dL (0.0-1.0); Bilirubin,Total 2.8 mg/dL (0.3-1.0)
[2020-10-08] MEDS ORDERED: Nitroglycerin 0.4 MG TAB.SUBL SL PRN (14:10)
[2020-10-08 18:47] LABS: Retculocyte # 0.16 M/mcL (0.05-0.10); Reticulocyte % 5.4 % (1.6-2.8)
[2020-10-08] MEDS: Primidone 50 MG TABLET PO SCH (21:24)
[2020-10-09] MEDS: *HR* OxyCODONE Immed Rel 5 MG TABLET PO PRN (02:14)
[2020-10-09 02:49] LABS: Hematocrit 25.8 % (37.5-50.1)
[2020-10-09 02:51] LABS: Immature Platelets 4.6 % (1.1-6.1); Mean Corpuscular Hemoglobin 27.7 pg (28.0-33.3); Mean Corpuscular Volume 89.3 fL (83.0-100.0); Mean Platelet Volume 10.1 fL (9.4-12.4); Red Blood Count 2.89 M/mcL (4.19-5.50); Red Cell Distribution Width 16.5 % (11.5-14.5)
[2020-10-09 03:02] LABS: BUN/Creatinine Ratio 14 (6-26); Blood Urea Nitrogen 19 mg/dL (6-20); Calcium 8.6 mg/dL (8.6-10.3); Carbon Dioxide 34 mEq/L (23-29); Chloride 93 mEq/L (98-107); Glucose 138 mg/dL (70-105); Osmolality,Calculated 278 (280-300); Potassium 3.6 mEq/L (3.5-5.1); Sodium 132 mEq/L (136-145); eGFR For African Americans > 60 (> 60); eGFR For Non-African Americans 55 (> 60)
[2020-10-09] MEDS: Lactulose Oral Soln 20 GM/30 ML UDC PO SCH ×3 (09:21→20:22)
[2020-10-09] MEDS: cefTRIAXone 1,000 MG in Water for inj. (sterile) 10 ML IVP SCH (09:22)
[2020-10-09] MEDS: Sucralfate 1 GM TABLET PO SCH ×2 (09:27→20:22)
[2020-10-09] MEDS: Primidone 50 MG TABLET PO SCH ×2 (09:28→20:23)
[2020-10-09] MEDS: Insulin DETEMIR 100 UNIT/ML X5UNITS SUBQ SCH ×2 (09:29→20:27)
[2020-10-09] MEDS: Gabapentin 300 MG CAPSULE PO SCH ×2 (09:29→20:22)
[2020-10-09] MEDS: IBRUTINIB 280 MG PO SCH (09:30)
[2020-10-09] MEDS: Insulin LISPRO 300 UNITS/3 ML VIAL SUBQ SCH ×4 (09:35→20:27)
[2020-10-09] MEDS: Bumetanide 1 MG TABLET PO SCH ×2 (12:52→17:52)
[2020-10-09] MEDS: ALPRAZolam 1 MG TABLET PO PRN (20:35)
[2020-10-10] MEDS: *HR* OxyCODONE Immed Rel 5 MG TABLET PO PRN (00:14)
[2020-10-10 01:31] LABS: Hematocrit 23.2 % (37.5-50.1); Hemoglobin 7.5 g/dL (12.9-16.9); Mean Corpuscular HGB Conc 32.3 g/dL (31.6-35.5); Mean Corpuscular Volume 89.6 fL (83.0-100.0); Mean Platelet Volume 10.8 fL (9.4-12.4); Red Blood Count 2.59 M/mcL (4.19-5.50); Red Cell Distribution Width 16.4 % (11.5-14.5); White Blood Count 3.2 K/mcL (4.3-11.1)
[2020-10-10 01:32] LABS: Platelet Count 73 K/mcL (140-400)
[2020-10-10 01:50] LABS: BUN/Creatinine Ratio 12 (6-26); Blood Urea Nitrogen 17 mg/dL (6-20); Calcium 8.1 mg/dL (8.6-10.3); Carbon Dioxide 31 mEq/L (23-29); Chloride 94 mEq/L (98-107); Glucose 142 mg/dL (70-105); Osmolality,Calculated 278 (280-300); Potassium 3.6 mEq/L (3.5-5.1); Sodium 132 mEq/L (136-145); eGFR For African Americans > 60 (> 60); eGFR For Non-African Americans 51 (> 60)
[2020-10-10 07:45] VITALS: BP 109/57
[2020-10-10] MEDS: Sucralfate 1 GM TABLET PO SCH (09:55)
[2020-10-10] MEDS: Bumetanide 1 MG TABLET PO SCH (09:55)
[2020-10-10] MEDS: Gabapentin 300 MG CAPSULE PO SCH (09:56)
[2020-10-10] MEDS: cefTRIAXone 1,000 MG in Water for inj. (sterile) 10 ML IVP SCH (09:58)
[2020-10-10] MEDS: Lactulose Oral Soln 20 GM/30 ML UDC PO SCH ×2 (09:59→14:52)
[2020-10-10] MEDS: Insulin LISPRO 300 UNITS/3 ML VIAL SUBQ SCH ×2 (10:00→12:50)
[2020-10-10] MEDS: Primidone 50 MG TABLET PO SCH (10:02)
[2020-10-10 10:56] LABS: Hematocrit 24.6 % (37.5-50.1); Hemoglobin 8.1 g/dL (12.9-16.9)
[2020-10-10] MEDS: Insulin DETEMIR 100 UNIT/ML X5UNITS SUBQ SCH (12:48)
== END 2020-10-10 17:02 | disposition home or self-care (01) | DRG 393 ==
LOC: EMEROOARM 09:59 → 3ANU 09:59
PROVIDERS: ADMIT Internal Medicine; ATTEND Internal Medicine

== ENCOUNTER 2020-11-01 16:13 | Inpatient (IN) ==
[2020-11-01 16:52] LABS: VBG HCO3 37 mEq/L (21-27); VBG PCO2 63 mmHg (41-51); VBG PH 7.37 pH Units (7.32-7.42); VBG PO2 159 mmHg (25-50)
[2020-11-01] MEDS ORDERED: Furosemide 40 MG/4 ML VIAL IVP ONE (17:07)
[2020-11-01] MEDS ORDERED: Azithromycin 500 MG in 0.9 % Sodium Chloride 250 ML IVPB ONE (17:07)
[2020-11-01] MEDS ORDERED: cefTRIAXone 1,000 MG in Water for inj. (sterile) 10 ML IVP ONE (17:07)
[2020-11-01] MEDS ORDERED: Ipratropium/Albuterol Neb 3 ML IH ONE (17:20)
[2020-11-01] MEDS ORDERED: Naloxone 0.4 MG/ML INJ IVP PRN (18:01)
[2020-11-01] MEDS ORDERED: Ondansetron 4 MG/2 ML VIAL IVP PRN (18:01)
[2020-11-01] MEDS ORDERED: D5% in Water 1,000 ML IVC PRN (18:24)
[2020-11-01] MEDS ORDERED: *HR* Dextrose 50 % in Water (Vial) 50 ML VIAL IVP PRN (18:24)
[2020-11-01] MEDS ORDERED: Dextrose Gel 15 GM/37.5 ML TUBE PO PRN ×2 (18:24)
[2020-11-01 18:25] LABS: Basophils % 0.8 %; Eosinophils # 0.1 K/mcL (0.0-0.6); Hematocrit 26.1 % (37.5-50.1); Hemoglobin 8.3 g/dL (12.9-16.9); Immature Granulocytes % 0.4 % (0-4); Lymphocytes # 0.4 K/mcL (0.6-4.6); Mean Corpuscular HGB Conc 31.8 g/dL (31.6-35.5); Mean Corpuscular Hemoglobin 29.7 pg (28.0-33.3); Mean Corpuscular Volume 93.5 fL (83.0-100.0); Mean Platelet Volume 9.8 fL (9.4-12.4); Monocytes # 0.3 K/mcL (0.0-1.3); Monocytes % 12.7 %; Neutrophils # 1.7 K/mcL (1.6-8.9); Red Blood Count 2.79 M/mcL (4.19-5.50); Red Cell Distribution Width 16.2 % (11.5-14.5); Segmented Neutrophils % 66.1 %; White Blood Count 2.6 K/mcL (4.3-11.1)
[2020-11-01 18:27] LABS: Platelet Count 87 K/mcL (140-400); Platelet Estimate Decreased (Normal)
[2020-11-01 18:34] LABS: Adenovirus Not Detected (Not Detect); Bordetella Pertussis Not Detected (Not Detect); Chlamydophila pneumoniae Not Detected (Not Detect); Coronavirus 229E Not Detected (Not Detect); Coronavirus HKU1 Not Detected (Not Detect); Coronavirus NL63 Not Detected (Not Detect); Coronavirus OC43 Not Detected (Not Detect); Human Metapneumovirus Not Detected (Not Detect); Human Rhinovirus/Enterovirus Not Detected (Not Detect); Influenza A Subtype 2009 H1 Not Detected (Not Detect); Influenza B Not Detected (Not Detect); Mycoplasma pneumoniae Not Detected (Not Detect); Parainfluenza Virus 1 Not Detected (Not Detect); Parainfluenza Virus 2 Not Detected (Not Detect); Parainfluenza Virus 3 Not Detected (Not Detect); Parainfluenza Virus 4 Not Detected (Not Detect); Respiratory Syncytial Virus Not Detected (Not Detect); SARS-CoV-2 Not Detected (Not Detect)
[2020-11-01] MEDS: Iron Sucrose Complex 250 MG in 0.9 % Sodium Chloride 250 ML IVPB SCH (20:30)
[2020-11-01] MEDS: Insulin DETEMIR 100 UNIT/ML X5UNITS SUBQ SCH (21:49)
[2020-11-01] MEDS: Lactulose Oral Soln 20 GM/30 ML UDC PO SCH (21:49)
[2020-11-01] MEDS: metroNIDAZOLE 500 MG TABLET PO SCH (21:49)
[2020-11-02] MEDS ORDERED: ALPRAZolam 1 MG TABLET PO PRN (00:35)
[2020-11-02 00:45] LABS: VBG HCO3 37 mEq/L (21-27); VBG PCO2 56 mmHg (41-51); VBG PH 7.42 pH Units (7.32-7.42); VBG PO2 146 mmHg (25-50)
[2020-11-02 00:49] LABS: Hemoglobin 8.2 g/dL (12.9-16.9); Immature Granulocytes % 0.8 % (0-4)
[2020-11-02 00:51] LABS: Basophils % 0.4 %; Eosinophils # 0.1 K/mcL (0.0-0.6); Eosinophils % 4.6 %; Hematocrit 25.8 % (37.5-50.1); Immature Platelets 1.1 % (1.1-6.1); Lymphocytes # 0.4 K/mcL (0.6-4.6); Lymphocytes % 16.9 %; Mean Corpuscular HGB Conc 31.8 g/dL (31.6-35.5); Mean Corpuscular Hemoglobin 29.4 pg (28.0-33.3); Mean Corpuscular Volume 92.5 fL (83.0-100.0); Mean Platelet Volume 9.1 fL (9.4-12.4); Monocytes # 0.3 K/mcL (0.0-1.3); Monocytes % 12.3 %; Neutrophils # 1.7 K/mcL (1.6-8.9); Platelet Count 111 K/mcL (140-400); Red Blood Count 2.79 M/mcL (4.19-5.50); Red Cell Distribution Width 16.2 % (11.5-14.5); White Blood Count 2.6 K/mcL (4.3-11.1)
[2020-11-02 00:53] LABS: INR 1.1
[2020-11-02 01:08] LABS: BUN/Creatinine Ratio 13 (6-26); Blood Urea Nitrogen 18 mg/dL (6-20); Calcium 9.4 mg/dL (8.6-10.3); Carbon Dioxide 36 mEq/L (23-29); Chloride 91 mEq/L (98-107); Glucose 237 mg/dL (70-105); Magnesium 1.9 mg/dL (1.6-2.6); Osmolality,Calculated 292 (280-300); Sodium 136 mEq/L (136-145); eGFR For African Americans > 60 (> 60); eGFR For Non-African Americans 54 (> 60)
[2020-11-02 01:31] LABS: Folate 7.4 ng/mL (3.0-16.0)
[2020-11-02] MEDS: Insulin LISPRO 300 UNITS/3 ML VIAL SUBQ SCH ×3 (07:45→18:07)
[2020-11-02] MEDS ORDERED: Lidocaine -MPF 2% 2 ML VIAL ONE (09:54)
[2020-11-02] MEDS ORDERED: *HR* EPINEPHrine 1 MG/10 ML SYRINGE ONE (10:14)
[2020-11-02] MEDS ORDERED: *HR* EPINEPHrine 1 MG/10 ML SYRINGE IVP ONE (10:14)
[2020-11-02] MEDS ORDERED: *HR* OxyCODONE Immed Rel 5 MG TABLET PO PRN (10:52)
[2020-11-02] MEDS: Lactulose Oral Soln 20 GM/30 ML UDC PO SCH ×3 (11:24→21:02)
[2020-11-02] MEDS: Pantoprazole 40 MG VIAL IVP SCH (11:24)
[2020-11-02] MEDS: cefTRIAXone 1,000 MG in Water for inj. (sterile) 10 ML IVP SCH (11:24)
[2020-11-02] MEDS: metroNIDAZOLE 500 MG TABLET PO SCH ×3 (11:25→21:01)
[2020-11-02] MEDS: Bumetanide 1 MG/4 ML VIAL IVP SCH ×2 (11:30→18:05)
[2020-11-02] MEDS: Gabapentin 300 MG CAPSULE PO SCH ×2 (16:12→21:01)
[2020-11-02] MEDS: Sucralfate 1 GM TABLET PO SCH ×2 (18:05→21:01)
[2020-11-02] MEDS ORDERED: Albuterol 2.5 MG/3 ML NEBULIZER IH PRN (18:11)
[2020-11-02] MEDS: Iron Sucrose Complex 250 MG in 0.9 % Sodium Chloride 250 ML IVPB SCH (18:21)
[2020-11-02] MEDS ORDERED: Sucralfate 1 GM TABLET PO SCH (21:00)
[2020-11-02] MEDS: Insulin DETEMIR 100 UNIT/ML X5UNITS SUBQ SCH (21:02)
[2020-11-03 06:01] LABS: Hematocrit 26.4 % (37.5-50.1); Hemoglobin 8.4 g/dL (12.9-16.9); Immature Platelets 1.2 % (1.1-6.1); Mean Corpuscular HGB Conc 31.8 g/dL (31.6-35.5); Mean Corpuscular Hemoglobin 29.7 pg (28.0-33.3); Mean Corpuscular Volume 93.3 fL (83.0-100.0); Mean Platelet Volume 9.4 fL (9.4-12.4); Red Blood Count 2.83 M/mcL (4.19-5.50); Red Cell Distribution Width 16.4 % (11.5-14.5); White Blood Count 2.9 K/mcL (4.3-11.1)
[2020-11-03] MEDS: Gabapentin 300 MG CAPSULE PO SCH ×2 (07:34→14:09)
[2020-11-03] MEDS: metroNIDAZOLE 500 MG TABLET PO SCH ×2 (07:35→14:09)
[2020-11-03] MEDS: Sucralfate 1 GM TABLET PO SCH ×2 (07:36→14:09)
[2020-11-03] MEDS: cefTRIAXone 1,000 MG in Water for inj. (sterile) 10 ML IVP SCH (07:37)
[2020-11-03] MEDS: Pantoprazole 40 MG VIAL IVP SCH (07:38)
[2020-11-03] MEDS: Lactulose Oral Soln 20 GM/30 ML UDC PO SCH (07:38)
[2020-11-03] MEDS: Insulin LISPRO 300 UNITS/3 ML VIAL SUBQ SCH ×2 (07:48→13:33)
[2020-11-03] MEDS: Bumetanide 1 MG/4 ML VIAL IVP SCH (07:54)
[2020-11-03] MEDS ORDERED: Iron Sucrose Complex 250 MG in 0.9 % Sodium Chloride 250 ML IVPB ONE (08:15)
[2020-11-03 09:58] VITALS: BP 137/53
== END 2020-11-03 14:24 | disposition home or self-care (01) | DRG 393 ==
LOC: 3ANU 16:13 → EMEROOARM 16:13 → SUATTDRO 18:38 → 3ANU 19:40
PROVIDERS: ADMIT Internal Medicine; ATTEND Internal Medicine

== ENCOUNTER 2020-12-12 15:10 | Inpatient (IN) ==
[2020-12-12 15:58] LABS: Basophils % 0.3 %; Eosinophils % 1.4 %; Immature Granulocytes % 0.7 % (0-4); Red Cell Distribution Width 16.8 % (11.5-14.5); White Blood Count 2.9 K/mcL (4.3-11.1)
[2020-12-12 15:58] LABS: VBG HCO3 37 mEq/L (21-27); VBG PCO2 61 mmHg (41-51); VBG PO2 55 mmHg (25-50)
[2020-12-12 15:59] LABS: Hematocrit 21.4 % (37.5-50.1); Hemoglobin 6.9 g/dL (12.9-16.9); Immature Platelets 1.8 % (1.1-6.1); Lymphocytes # 0.3 K/mcL (0.6-4.6); Lymphocytes % 11.1 %; Mean Corpuscular HGB Conc 32.2 g/dL (31.6-35.5); Mean Corpuscular Hemoglobin 30.3 pg (28.0-33.3); Mean Corpuscular Volume 93.9 fL (83.0-100.0); Mean Platelet Volume 9.1 fL (9.4-12.4); Monocytes # 0.2 K/mcL (0.0-1.3); Monocytes % 8.4 %; Red Blood Count 2.28 M/mcL (4.19-5.50); Segmented Neutrophils % 78.1 %
[2020-12-12 16:01] LABS: Neutrophils # 2.3 K/mcL (1.6-8.9); Platelet Count 77 K/mcL (140-400)
[2020-12-12 16:06] LABS: INR 1.2; Prothrombin Time 13.4 Seconds (9.4-12.1)
[2020-12-12 16:20] LABS: Alanine Aminotransferase 26 Units/L (7-52); Albumin 3.4 g/dL (3.5-5.7); Albumin/Globulin Ratio 1.8 (1.1-2.2); Alkaline Phosphatase 135 Units/L (34-104); Aspartate Amino Transferase 23 Units/L (13-39); BUN/Creatinine Ratio 18 (6-26); Bilirubin,Direct 0.4 mg/dL (0.0-0.2); Bilirubin,Indirect 1.5 mg/dL (0.0-1.0); Bilirubin,Total 1.9 mg/dL (0.3-1.0); Blood Urea Nitrogen 24 mg/dL (6-20); Calcium 9.1 mg/dL (8.6-10.3); Carbon Dioxide 40 mEq/L (23-29); Chloride 94 mEq/L (98-107); Globulin 1.9 g/dL (2.4-3.5); Glucose 199 mg/dL (70-105); Osmolality,Calculated 298 (280-300); Potassium 3.6 mEq/L (3.5-5.1); Sodium 139 mEq/L (136-145); Total Protein 5.3 g/dL (6.4-8.9); Troponin I 0.03 ng/mL (< 0.04); eGFR For African Americans > 60 (> 60); eGFR For Non-African Americans 54 (> 60)
[2020-12-12] MEDS ORDERED: 0.9 % Sodium Chloride 250 ML ONE (16:53)
[2020-12-12] MEDS ORDERED: MOM Conc 10 ML UD.LIQ PO PRN (17:42)
[2020-12-12] MEDS ORDERED: Ondansetron 4 MG/2 ML VIAL IVP PRN (17:42)
[2020-12-12] MEDS ORDERED: Naloxone 0.4 MG/ML INJ IVP PRN (17:42)
[2020-12-12 17:46] LABS: Bilirubin,Urine Negative (Negative); Blood,Urine Negative (Negative); Clarity,Urine Clear (Clear); Color,Urine Colorless (Yellow); Glucose,Urine (UA) Normal (Normal); Ketones,Urine Negative (Negative); Leukocyte Esterase,Urine Negative (Negative); Nitrite,Urine Negative (Negative); Protein,Urine Negative (Neg-Trace); Specific Gravity,Urine 1.008 (1.010-1.025); Urobilinogen,Urine Normal (Normal)
[2020-12-12] MEDS ORDERED: *HR* Dextrose 50 % in Water (Vial) 50 ML VIAL IVP PRN (17:50)
[2020-12-12] MEDS ORDERED: Dextrose Gel 15 GM/37.5 ML TUBE PO PRN ×2 (17:50)
[2020-12-12] MEDS ORDERED: D5% in Water 1,000 ML IVC PRN (17:50)
[2020-12-12] MEDS: cefTRIAXone 1,000 MG in Water for inj. (sterile) 10 ML IVPB SCH (19:42)
[2020-12-12] MEDS: Bumetanide 1 MG TABLET PO SCH (20:34)
[2020-12-12] MEDS: Insulin LISPRO 300 UNITS/3 ML VIAL SUBQ SCH (20:45)
[2020-12-12] MEDS: Sucralfate 1 GM TABLET PO SCH (20:45)
[2020-12-12] MEDS: Lactulose Oral Soln 20 GM/30 ML UDC PO SCH (20:46)
[2020-12-12] MEDS ORDERED: Melatonin 3 MG TABLET PO PRN (21:00)
[2020-12-12] MEDS: Insulin DETEMIR 100 UNIT/ML X5UNITS SUBQ SCH (21:19)
[2020-12-12 22:44] LABS: Hemoglobin 7.3 g/dL (12.9-16.9)
[2020-12-13 04:49] LABS: VBG HCO3 37 mEq/L (21-27); VBG PCO2 32 mmHg (41-51); VBG PH 7.67 pH Units (7.32-7.42); VBG PO2 178 mmHg (25-50)
[2020-12-13 05:07] LABS: ABG Base Excess 13 mEq/L (-2 to 3); ABG HCO3 39 mEq/L (21-27); ABG Oxygen Saturation 97 % (95-98); ABG PCO2 57 mmHg (35-45); ABG PH 7.44 pH Units (7.32-7.45); ABG PO2 94 mmHg (85-104); ABG TCO2 40 mEq/L (20-26)
[2020-12-13 05:41] LABS: INR 1.1
[2020-12-13 05:59] LABS: Basophils % 0.4 %; Immature Granulocytes % 0.4 % (0-4)
[2020-12-13 06:01] LABS: Eosinophils # 0.1 K/mcL (0.0-0.6); Hematocrit 21.2 % (37.5-50.1); Hemoglobin 6.8 g/dL (12.9-16.9); Immature Platelets 1.4 % (1.1-6.1); Lymphocytes # 0.5 K/mcL (0.6-4.6); Lymphocytes % 16.8 %; Mean Corpuscular HGB Conc 32.1 g/dL (31.6-35.5); Mean Corpuscular Hemoglobin 30.1 pg (28.0-33.3); Mean Corpuscular Volume 93.8 fL (83.0-100.0); Mean Platelet Volume 9.2 fL (9.4-12.4); Monocytes # 0.2 K/mcL (0.0-1.3); Neutrophils # 1.9 K/mcL (1.6-8.9); Red Blood Count 2.26 M/mcL (4.19-5.50); Red Cell Distribution Width 16.5 % (11.5-14.5); Segmented Neutrophils % 70.4 %; White Blood Count 2.7 K/mcL (4.3-11.1)
[2020-12-13 06:09] LABS: Platelet Count 77 K/mcL (140-400)
[2020-12-13 06:20] LABS: Alanine Aminotransferase 22 Units/L (7-52); Albumin 3.1 g/dL (3.5-5.7); Albumin/Globulin Ratio 1.9 (1.1-2.2); Alkaline Phosphatase 102 Units/L (34-104); Aspartate Amino Transferase 21 Units/L (13-39); BUN/Creatinine Ratio 18 (6-26); Bilirubin,Direct 0.5 mg/dL (0.0-0.2); Bilirubin,Indirect 1.5 mg/dL (0.0-1.0); Blood Urea Nitrogen 22 mg/dL (6-20); Calcium 8.4 mg/dL (8.6-10.3); Carbon Dioxide 37 mEq/L (23-29); Chloride 96 mEq/L (98-107); Globulin 1.6 g/dL (2.4-3.5); Glucose 148 mg/dL (70-105); Magnesium 1.4 mg/dL (1.6-2.6); Osmolality,Calculated 294 (280-300); Potassium 3.6 mEq/L (3.5-5.1); Sodium 139 mEq/L (136-145); Total Protein 4.7 g/dL (6.4-8.9); eGFR For African Americans > 60 (> 60); eGFR For Non-African Americans > 60 (> 60)
[2020-12-13] MEDS: Insulin LISPRO 300 UNITS/3 ML VIAL SUBQ SCH ×4 (07:58→20:16)
[2020-12-13] MEDS: Insulin DETEMIR 100 UNIT/ML X5UNITS SUBQ SCH ×2 (07:58→21:15)
[2020-12-13] MEDS ORDERED: 0.9 % Sodium Chloride 250 ML ONE ×2 (09:09→12:42)
[2020-12-13] MEDS: Sucralfate 1 GM TABLET PO SCH ×2 (09:48→20:03)
[2020-12-13] MEDS: Lactulose Oral Soln 20 GM/30 ML UDC PO SCH ×3 (09:48→20:04)
[2020-12-13] MEDS: Bumetanide 1 MG TABLET PO SCH ×2 (09:48→20:03)
[2020-12-13 11:44] LABS: Influenza A PCR Negative (Negative); Influenza B PCR Negative (Negative); Resp. Syncytial Virus PCR Negative (Negative)
[2020-12-13 12:12] LABS: SARS-CoV-2 by PCR (In House) Negative (Negative)
[2020-12-13] MEDS ORDERED: Lidocaine -MPF 2% 5 ML VIAL SQ ONE (13:31)
[2020-12-13] MEDS ORDERED: *HR* Propofol 200 MG/20 ML VIAL IVP ONE (13:31)
[2020-12-13] MEDS: cefTRIAXone 1,000 MG in Water for inj. (sterile) 10 ML IVPB SCH (17:00)
[2020-12-14 01:25] LABS: VBG HCO3 32 mEq/L (21-27); VBG PCO2 47 mmHg (41-51); VBG PH 7.43 pH Units (7.32-7.42); VBG PO2 52 mmHg (25-50)
[2020-12-14 01:25] LABS: Basophils % 0.3 %; Immature Granulocytes % 0.6 % (0-4); Monocytes % 9.7 %
[2020-12-14 01:27] LABS: Eosinophils # 0.1 K/mcL (0.0-0.6); Hematocrit 27.6 % (37.5-50.1); Hemoglobin 9.1 g/dL (12.9-16.9); Immature Platelets 1.5 % (1.1-6.1); Lymphocytes # 0.5 K/mcL (0.6-4.6); Lymphocytes % 13.9 %; Mean Corpuscular Hemoglobin 29.7 pg (28.0-33.3); Mean Corpuscular Volume 90.2 fL (83.0-100.0); Mean Platelet Volume 9.1 fL (9.4-12.4); Monocytes # 0.3 K/mcL (0.0-1.3); Neutrophils # 2.4 K/mcL (1.6-8.9); Platelet Count 77 K/mcL (140-400); Red Blood Count 3.06 M/mcL (4.19-5.50); Red Cell Distribution Width 16.9 % (11.5-14.5); Segmented Neutrophils % 72.5 %; White Blood Count 3.3 K/mcL (4.3-11.1)
[2020-12-14 01:32] LABS: INR 1.2; Prothrombin Time 13.4 Seconds (9.4-12.1)
[2020-12-14 01:40] LABS: Alanine Aminotransferase 21 Units/L (7-52); Albumin 3.3 g/dL (3.5-5.7); Albumin/Globulin Ratio 1.9 (1.1-2.2); Alkaline Phosphatase 100 Units/L (34-104); Aspartate Amino Transferase 21 Units/L (13-39); BUN/Creatinine Ratio 15 (6-26); Bilirubin,Direct 0.5 mg/dL (0.0-0.2); Bilirubin,Indirect 2.7 mg/dL (0.0-1.0); Bilirubin,Total 3.2 mg/dL (0.3-1.0); Blood Urea Nitrogen 19 mg/dL (6-20); Calcium 8.8 mg/dL (8.6-10.3); Carbon Dioxide 37 mEq/L (23-29); Chloride 95 mEq/L (98-107); Globulin 1.7 g/dL (2.4-3.5); Glucose 161 mg/dL (70-105); Magnesium 1.7 mg/dL (1.6-2.6); Osmolality,Calculated 294 (280-300); Potassium 3.3 mEq/L (3.5-5.1); Sodium 139 mEq/L (136-145); eGFR For African Americans > 60 (> 60); eGFR For Non-African Americans 60 (> 60)
[2020-12-14 02:55] LABS: Estimated Average Glucose 100 mg/dl; Hemoglobin A1C 5.1 %
[2020-12-14] MEDS: Insulin DETEMIR 100 UNIT/ML X5UNITS SUBQ SCH (07:19)
[2020-12-14] MEDS: Insulin LISPRO 300 UNITS/3 ML VIAL SUBQ SCH ×2 (07:23→11:10)
[2020-12-14] MEDS: Sucralfate 1 GM TABLET PO SCH (07:24)
[2020-12-14] MEDS: Lactulose Oral Soln 20 GM/30 ML UDC PO SCH (07:24)
[2020-12-14] MEDS: Bumetanide 1 MG TABLET PO SCH (07:24)
[2020-12-14 11:05] VITALS: BP 123/73
== END 2020-12-14 13:32 | disposition home or self-care (01) | DRG 441 ==
LOC: EMEROOARM 15:10 → 3BNU 15:10 → SUATTDRO 18:59 → 3BNU 20:00
PROVIDERS: ADMIT Internal Medicine; ATTEND Registered Nurse

== ENCOUNTER 2021-02-06 13:40 | Inpatient (IN) ==
[2021-02-06] MEDS ORDERED: Lactulose Oral Soln 20 GM/30 ML UDC PO STA (15:46)
[2021-02-06] MEDS ORDERED: Naloxone 0.4 MG/ML INJ IVP PRN (16:41)
[2021-02-06] MEDS ORDERED: ALPRAZolam 1 MG TABLET PO PRN (16:45)
[2021-02-06] MEDS ORDERED: Dextrose Gel 15 GM/37.5 ML TUBE PO PRN ×2 (16:46)
[2021-02-06] MEDS ORDERED: *HR* Dextrose 50 % in Water (Vial) 50 ML VIAL IVP PRN (16:46)
[2021-02-06] MEDS ORDERED: D5% in Water 1,000 ML IVC PRN (16:46)
[2021-02-06] MEDS ORDERED: *HR* OxyCODONE Immed Rel 5 MG TABLET PO PRN (17:42)
[2021-02-06 17:45] LABS: Hematocrit 18.6 % (37.5-50.1); Hemoglobin 6.3 g/dL (12.9-16.9); Immature Platelets 5.9 % (1.1-6.1); Mean Corpuscular HGB Conc 33.9 g/dL (31.6-35.5); Mean Corpuscular Hemoglobin 29.3 pg (28.0-33.3); Mean Corpuscular Volume 86.5 fL (83.0-100.0); Mean Platelet Volume 10.7 fL (9.4-12.4); Nucleated Red Blood Cells 1.3 /100 WBC (0); Red Blood Count 2.15 M/mcL (4.19-5.50); Red Cell Distribution Width 16.8 % (11.5-14.5); White Blood Count 4.5 K/mcL (4.3-11.1)
[2021-02-06 18:00] LABS: Albumin/Globulin Ratio 2.1 (1.1-2.2); Bilirubin,Direct 0.6 mg/dL (0.0-0.2); Bilirubin,Indirect 3.1 mg/dL (0.0-1.0); Bilirubin,Total 3.7 mg/dL (0.3-1.0); Calcium 9.2 mg/dL (8.6-10.3); Globulin 1.4 g/dL (2.4-3.5); Potassium 4.7 mEq/L (3.5-5.1); Total Protein 4.4 g/dL (6.4-8.9)
[2021-02-06] MEDS ORDERED: Lactulose 200 GM, Sodium Chloride IRRigation 700 ML RC ONE (18:00)
[2021-02-06 18:02] LABS: Platelet Count 20 K/mcL (140-400)
[2021-02-06 18:22] LABS: INR 1.2; Prothrombin Time 13.3 Seconds (9.4-12.1)
[2021-02-06] MEDS ORDERED: 0.9 % Sodium Chloride 250 ML IVC SCH (18:30)
[2021-02-06] MEDS: Pantoprazole 40 MG VIAL IVP SCH (18:48)
[2021-02-06] MEDS: cefTRIAXone 1,000 MG in Water for inj. (sterile) 10 ML IVPB SCH (18:49)
[2021-02-06] MEDS: Insulin LISPRO 300 UNITS/3 ML VIAL SUBQ SCH ×2 (18:50→21:18)
[2021-02-06 19:06] LABS: Lymphocytes # 0.1 K/mcL (0.6-4.6); Monocytes # 0.4 K/mcL (0.0-1.3); Platelet Estimate Marked Decrease (Normal)
[2021-02-06 19:07] LABS: Hypochromasia Present (Not Present); Macrocytosis Present (Not Present); Ovalocytes 1+ (Not Present); Polychromasia 1+ (Not Present)
[2021-02-06 20:43] LABS: Adenovirus Not Detected (Not Detect); Bordetella Pertussis Not Detected (Not Detect); Chlamydophila pneumoniae Not Detected (Not Detect); Coronavirus 229E Not Detected (Not Detect); Coronavirus HKU1 Not Detected (Not Detect); Coronavirus NL63 Not Detected (Not Detect); Coronavirus OC43 Not Detected (Not Detect); Human Metapneumovirus Not Detected (Not Detect); Human Rhinovirus/Enterovirus Not Detected (Not Detect); Influenza A Subtype 2009 H1 Not Detected (Not Detect); Influenza B Not Detected (Not Detect); Mycoplasma pneumoniae Not Detected (Not Detect); Parainfluenza Virus 1 Not Detected (Not Detect); Parainfluenza Virus 2 Not Detected (Not Detect); Parainfluenza Virus 3 Not Detected (Not Detect); Parainfluenza Virus 4 Not Detected (Not Detect); Respiratory Syncytial Virus Not Detected (Not Detect); SARS-CoV-2 Not Detected (Not Detect)
[2021-02-06] MEDS: Sucralfate 1 GM TABLET PO SCH (21:16)
[2021-02-06] MEDS: allopurinoL 100 MG TABLET PO SCH (21:17)
[2021-02-07] MEDS: Pantoprazole 40 MG VIAL IVP SCH ×2 (05:11→18:20)
[2021-02-07 06:49] LABS: Hematocrit 17.1 % (37.5-50.1); Mean Corpuscular HGB Conc 34.5 g/dL (31.6-35.5); Nucleated Red Blood Cells 1.1 /100 WBC (0); White Blood Count 3.5 K/mcL (4.3-11.1)
[2021-02-07 06:51] LABS: Immature Platelets 4.9 % (1.1-6.1); Lymphocytes # 0.2 K/mcL (0.6-4.6); Mean Corpuscular Hemoglobin 29.8 pg (28.0-33.3); Mean Corpuscular Volume 86.4 fL (83.0-100.0); Red Blood Count 1.98 M/mcL (4.19-5.50)
[2021-02-07 06:56] LABS: Hemoglobin 5.9 g/dL (12.9-16.9); Platelet Count 21 K/mcL (140-400)
[2021-02-07 07:03] LABS: INR 1.2; Prothrombin Time 13.4 Seconds (9.4-12.1)
[2021-02-07 07:06] LABS: Albumin 2.8 g/dL (3.5-5.7); Albumin/Globulin Ratio 1.9 (1.1-2.2); Bilirubin,Direct 0.6 mg/dL (0.0-0.2); Bilirubin,Indirect 2.7 mg/dL (0.0-1.0); Bilirubin,Total 3.3 mg/dL (0.3-1.0); Calcium 8.9 mg/dL (8.6-10.3); Globulin 1.5 g/dL (2.4-3.5); Magnesium 1.9 mg/dL (1.6-2.6); Potassium 4.3 mEq/L (3.5-5.1); Total Protein 4.3 g/dL (6.4-8.9)
[2021-02-07 07:20] LABS: Monocytes # 0.1 K/mcL (0.0-1.3); Neutrophils # 3.1 K/mcL (1.6-8.9); Platelet Estimate Marked Decrease (Normal); Polychromasia 1+ (Not Present); Reactive Lymphocytes Present (Not Present); Toxic Granulation Present (Not Present)
[2021-02-07] MEDS: Sucralfate 1 GM TABLET PO SCH ×3 (08:20→16:44)
[2021-02-07] MEDS: Lactulose Oral Soln 20 GM/30 ML UDC PO SCH ×3 (08:20→21:03)
[2021-02-07] MEDS: Bumetanide 1 MG TABLET PO SCH ×2 (08:20→16:43)
[2021-02-07] MEDS: Insulin LISPRO 300 UNITS/3 ML VIAL SUBQ SCH ×4 (08:21→21:03)
[2021-02-07] MEDS ORDERED: *HR* Propofol 200 MG/20 ML VIAL IVP ONE (11:06)
[2021-02-07] MEDS ORDERED: Lidocaine -MPF 2% 2 ML VIAL ONE (11:07)
[2021-02-07] MEDS ORDERED: 0.9 % Sodium Chloride 250 ML IVC SCH (13:00)
[2021-02-07] MEDS: Gabapentin 400 MG CAPSULE PO SCH ×2 (15:27→21:03)
[2021-02-07] MEDS ORDERED: SODIUM CHLORIDE/NAHCO3/KCL/PEG 4,000 ML SOLN.RECON PO ONE (17:00)
[2021-02-07] MEDS: cefTRIAXone 1,000 MG in Water for inj. (sterile) 10 ML IVPB SCH (18:20)
[2021-02-07 19:10] LABS: Red Cell Distribution Width 15.9 % (11.5-14.5)
[2021-02-07 19:12] LABS: Hematocrit 16.8 % (37.5-50.1); Immature Platelets 4.3 % (1.1-6.1); Mean Corpuscular HGB Conc 33.9 g/dL (31.6-35.5); Mean Corpuscular Hemoglobin 29.5 pg (28.0-33.3); Mean Platelet Volume 10.4 fL (9.4-12.4); Nucleated Red Blood Cells 1.7 /100 WBC (0); Red Blood Count 1.93 M/mcL (4.19-5.50); White Blood Count 3.6 K/mcL (4.3-11.1)
[2021-02-07 19:16] LABS: Hemoglobin 5.7 g/dL (12.9-16.9); Platelet Count 23 K/mcL (140-400)
[2021-02-07 19:33] LABS: Phosphorous 3.4 mg/dL (2.7-4.5); Uric Acid 7.2 mg/dL (2.3-7.6)
[2021-02-07 19:36] LABS: Eosinophils # 0.1 K/mcL (0.0-0.6); Lymphocytes # 0.4 K/mcL (0.6-4.6); Neutrophils # 2.8 K/mcL (1.6-8.9)
[2021-02-07 19:37] LABS: Platelet Estimate Marked Decrease (Normal)
[2021-02-07] MEDS ORDERED: 0.9 % Sodium Chloride 250 ML ONE ×2 (19:43→23:08)
[2021-02-07 19:46] LABS: Thyroid Stimulating Hormone 3.589 mcIU/mL (0.340-5.600)
[2021-02-07] MEDS: allopurinoL 100 MG TABLET PO SCH (21:02)
[2021-02-08 05:13] LABS: Red Cell Distribution Width 15.8 % (11.5-14.5)
[2021-02-08 05:15] LABS: Hematocrit 21.4 % (37.5-50.1); Hemoglobin 7.4 g/dL (12.9-16.9); Immature Platelets 2.9 % (1.1-6.1); Mean Corpuscular HGB Conc 34.6 g/dL (31.6-35.5); Mean Corpuscular Hemoglobin 30.3 pg (28.0-33.3); Mean Corpuscular Volume 87.7 fL (83.0-100.0); Mean Platelet Volume 10.3 fL (9.4-12.4); Nucleated Red Blood Cells 2.9 /100 WBC (0); Red Blood Count 2.44 M/mcL (4.19-5.50); White Blood Count 3.8 K/mcL (4.3-11.1)
[2021-02-08 05:26] LABS: Platelet Count 30 K/mcL (140-400)
[2021-02-08 05:27] LABS: Alanine Aminotransferase 31 Units/L (7-52); Albumin 2.9 g/dL (3.5-5.7); Albumin/Globulin Ratio 1.9 (1.1-2.2); Alkaline Phosphatase 104 Units/L (34-104); Aspartate Amino Transferase 30 Units/L (13-39); BUN/Creatinine Ratio 30 (6-26); Bilirubin,Direct 0.6 mg/dL (0.0-0.2); Bilirubin,Indirect 2.9 mg/dL (0.0-1.0); Bilirubin,Total 3.5 mg/dL (0.3-1.0); Blood Urea Nitrogen 44 mg/dL (6-20); Calcium 8.3 mg/dL (8.6-10.3); Carbon Dioxide 32 mEq/L (23-29); Chloride 96 mEq/L (98-107); Globulin 1.5 g/dL (2.4-3.5); Glucose 207 mg/dL (70-105); Osmolality,Calculated 295 (280-300); Potassium 3.8 mEq/L (3.5-5.1); Sodium 134 mEq/L (136-145); Total Protein 4.4 g/dL (6.4-8.9); eGFR For African Americans > 60 (> 60); eGFR For Non-African Americans 50 (> 60)
[2021-02-08 05:50] LABS: Lymphocytes # 0.3 K/mcL (0.6-4.6); Monocytes # 0.2 K/mcL (0.0-1.3); Neutrophils # 3.2 K/mcL (1.6-8.9); Platelet Estimate Marked Decrease (Normal); Reactive Lymphocytes Present (Not Present)
[2021-02-08] MEDS: Pantoprazole 40 MG VIAL IVP SCH ×2 (06:17→17:48)
[2021-02-08] MEDS ORDERED: Lidocaine -MPF 2% 2 ML VIAL ONE (07:25)
[2021-02-08] MEDS: Insulin LISPRO 300 UNITS/3 ML VIAL SUBQ SCH ×4 (07:30→21:47)
[2021-02-08] MEDS ORDERED: *HR* Propofol 200 MG/20 ML VIAL IVP ONE (08:29)
[2021-02-08] MEDS ORDERED: Simethicone 40 MG/0.6 ML MLS IR ONE (08:33)
[2021-02-08] MEDS: Sucralfate 1 GM TABLET PO SCH ×3 (09:28→16:14)
[2021-02-08] MEDS: Gabapentin 400 MG CAPSULE PO SCH ×3 (09:28→21:43)
[2021-02-08] MEDS: Bumetanide 1 MG TABLET PO SCH ×2 (09:28→16:14)
[2021-02-08] MEDS: Lactulose Oral Soln 20 GM/30 ML UDC PO SCH ×3 (09:28→21:44)
[2021-02-08 15:14] LABS: Nucleated Red Blood Cells 1.7 /100 WBC (0); Red Cell Distribution Width 15.7 % (11.5-14.5)
[2021-02-08 15:16] LABS: Hematocrit 21.8 % (37.5-50.1); Hemoglobin 7.8 g/dL (12.9-16.9); Immature Platelets 4.3 % (1.1-6.1); Mean Corpuscular HGB Conc 35.8 g/dL (31.6-35.5); Mean Corpuscular Hemoglobin 31.1 pg (28.0-33.3); Mean Corpuscular Volume 86.9 fL (83.0-100.0); Mean Platelet Volume 10.5 fL (9.4-12.4); Monocytes # 0.4 K/mcL (0.0-1.3); Red Blood Count 2.51 M/mcL (4.19-5.50); White Blood Count 4.7 K/mcL (4.3-11.1)
[2021-02-08 15:19] LABS: Platelet Count 27 K/mcL (140-400)
[2021-02-08 16:25] LABS: Eosinophils # 0.1 K/mcL (0.0-0.6); Lymphocytes # 0.2 K/mcL (0.6-4.6); Neutrophils # 3.9 K/mcL (1.6-8.9)
[2021-02-08 16:26] LABS: Hypochromasia Present (Not Present); Microcytosis Present (Not Present); Platelet Estimate Marked Decrease (Normal)
[2021-02-08] MEDS: cefTRIAXone 1,000 MG in Water for inj. (sterile) 10 ML IVPB SCH (17:47)
[2021-02-08 21:11] LABS: Eosinophils # 0.1 K/mcL (0.0-0.6); Hematocrit 20.3 % (37.5-50.1); Mean Corpuscular HGB Conc 34.5 g/dL (31.6-35.5); Mean Corpuscular Hemoglobin 30.6 pg (28.0-33.3); Mean Corpuscular Volume 88.6 fL (83.0-100.0); Nucleated Red Blood Cells 2.7 /100 WBC (0); Red Blood Count 2.29 M/mcL (4.19-5.50); Red Cell Distribution Width 15.8 % (11.5-14.5); White Blood Count 4.1 K/mcL (4.3-11.1)
[2021-02-08 21:29] LABS: Platelet Count 31 K/mcL (140-400)
[2021-02-08 21:36] LABS: Lymphocytes # 0.2 K/mcL (0.6-4.6); Neutrophils # 3.7 K/mcL (1.6-8.9); Platelet Estimate Marked Decrease (Normal)
[2021-02-08 21:37] LABS: Macrocytosis Present (Not Present); Polychromasia 1+ (Not Present)
[2021-02-08] MEDS: allopurinoL 100 MG TABLET PO SCH (21:43)
[2021-02-08] MEDS: Insulin DETEMIR 100 UNIT/ML X5UNITS SUBQ SCH (21:47)
[2021-02-08] MEDS: ALPRAZolam 0.25 MG TABLET PO PRN (23:53)
[2021-02-08] MEDS: Melatonin 3 MG TABLET PO PRN (23:53)
[2021-02-09 00:43] LABS: Hemoglobin 6.5 g/dL (12.9-16.9); Mean Corpuscular HGB Conc 34.2 g/dL (31.6-35.5); Red Cell Distribution Width 15.8 % (11.5-14.5)
[2021-02-09 00:45] LABS: Immature Platelets 3.4 % (1.1-6.1); Mean Corpuscular Hemoglobin 30.1 pg (28.0-33.3); Mean Platelet Volume 10.3 fL (9.4-12.4); Nucleated Red Blood Cells 2.4 /100 WBC (0); Red Blood Count 2.16 M/mcL (4.19-5.50); White Blood Count 3.7 K/mcL (4.3-11.1)
[2021-02-09 00:50] LABS: Platelet Count 30 K/mcL (140-400)
[2021-02-09 00:57] LABS: Alanine Aminotransferase 36 Units/L (7-52); Albumin 2.8 g/dL (3.5-5.7); Albumin/Globulin Ratio 1.9 (1.1-2.2); Alkaline Phosphatase 143 Units/L (34-104); Aspartate Amino Transferase 44 Units/L (13-39); BUN/Creatinine Ratio 24 (6-26); Bilirubin,Direct 0.5 mg/dL (0.0-0.2); Bilirubin,Indirect 2.3 mg/dL (0.0-1.0); Bilirubin,Total 2.8 mg/dL (0.3-1.0); Blood Urea Nitrogen 34 mg/dL (6-20); Carbon Dioxide 29 mEq/L (23-29); Chloride 93 mEq/L (98-107); Globulin 1.5 g/dL (2.4-3.5); Glucose 276 mg/dL (70-105); Osmolality,Calculated 287 (280-300); Potassium 3.7 mEq/L (3.5-5.1); Sodium 130 mEq/L (136-145); Total Protein 4.3 g/dL (6.4-8.9); eGFR For African Americans > 60 (> 60); eGFR For Non-African Americans 50 (> 60)
[2021-02-09 01:03] LABS: Basophils # 0.1 K/mcL (0.0-0.2); Eosinophils # 0.1 K/mcL (0.0-0.6); Lymphocytes # 0.2 K/mcL (0.6-4.6); Monocytes # 0.2 K/mcL (0.0-1.3); Neutrophils # 3.2 K/mcL (1.6-8.9)
[2021-02-09 01:04] LABS: Anisocytosis 1+ (Not Present); Platelet Estimate Marked Decrease (Normal); Polychromasia 1+ (Not Present)
[2021-02-09] MEDS: Pantoprazole 40 MG VIAL IVP SCH ×2 (06:51→16:56)
[2021-02-09] MEDS: Lactulose Oral Soln 20 GM/30 ML UDC PO SCH ×3 (08:10→20:13)
[2021-02-09] MEDS: Sucralfate 1 GM TABLET PO SCH ×3 (08:11→16:55)
[2021-02-09] MEDS: Gabapentin 400 MG CAPSULE PO SCH ×3 (08:11→20:13)
[2021-02-09] MEDS: Bumetanide 1 MG TABLET PO SCH ×2 (08:11→16:55)
[2021-02-09] MEDS: Insulin LISPRO 300 UNITS/3 ML VIAL SUBQ SCH ×4 (08:12→20:19)
[2021-02-09] MEDS: Insulin DETEMIR 100 UNIT/ML X5UNITS SUBQ SCH ×2 (08:12→20:20)
[2021-02-09 15:46] LABS: Nucleated Red Blood Cells 1.8 /100 WBC (0); Red Cell Distribution Width 15.9 % (11.5-14.5)
[2021-02-09 15:48] LABS: Basophils % 0.5 %; Eosinophils # 0.1 K/mcL (0.0-0.6); Eosinophils % 1.3 %; Hematocrit 24.9 % (37.5-50.1); Hemoglobin 8.5 g/dL (12.9-16.9); Immature Granulocytes % 5.6 % (0-4); Immature Platelets 3.2 % (1.1-6.1); Lymphocytes # 0.2 K/mcL (0.6-4.6); Lymphocytes % 3.1 %; Mean Corpuscular HGB Conc 34.1 g/dL (31.6-35.5); Mean Corpuscular Hemoglobin 30.2 pg (28.0-33.3); Mean Corpuscular Volume 88.6 fL (83.0-100.0); Mean Platelet Volume 9.9 fL (9.4-12.4); Monocytes # 0.4 K/mcL (0.0-1.3); Monocytes % 7.1 %; Neutrophils # 4.5 K/mcL (1.6-8.9); Platelet Count 36 K/mcL (140-400); Red Blood Count 2.81 M/mcL (4.19-5.50); Segmented Neutrophils % 82.4 %; White Blood Count 5.5 K/mcL (4.3-11.1)
[2021-02-09 16:23] LABS: Platelet Estimate Decreased (Normal); Toxic Granulation Present (Not Present)
[2021-02-09 16:27] LABS: Anisocytosis 1+ (Not Present); Macrocytosis Present (Not Present); Spherocytes 1+ (Not Present)
[2021-02-09] MEDS: cefTRIAXone 1,000 MG in Water for inj. (sterile) 10 ML IVPB SCH (16:57)
[2021-02-09] MEDS: ALPRAZolam 0.25 MG TABLET PO PRN (20:12)
[2021-02-09] MEDS: allopurinoL 100 MG TABLET PO SCH (20:13)
[2021-02-09] MEDS: Melatonin 3 MG TABLET PO PRN (20:13)
[2021-02-10 01:36] LABS: Hemoglobin 7.3 g/dL (12.9-16.9); Nucleated Red Blood Cells 1.5 /100 WBC (0); Red Cell Distribution Width 15.7 % (11.5-14.5); White Blood Count 3.4 K/mcL (4.3-11.1)
[2021-02-10 01:37] LABS: Basophils % 0.3 %; Eosinophils % 1.2 %; Hematocrit 21.4 % (37.5-50.1); Immature Granulocytes % 5.5 % (0-4); Immature Platelets 3.3 % (1.1-6.1); Lymphocytes # 0.1 K/mcL (0.6-4.6); Lymphocytes % 3.8 %; Mean Corpuscular HGB Conc 34.1 g/dL (31.6-35.5); Mean Corpuscular Hemoglobin 30.3 pg (28.0-33.3); Mean Corpuscular Volume 88.8 fL (83.0-100.0); Mean Platelet Volume 9.7 fL (9.4-12.4); Monocytes # 0.3 K/mcL (0.0-1.3); Monocytes % 7.6 %; Neutrophils # 2.8 K/mcL (1.6-8.9); Red Blood Count 2.41 M/mcL (4.19-5.50); Segmented Neutrophils % 81.6 %
[2021-02-10 01:40] LABS: Platelet Count 30 K/mcL (140-400)
[2021-02-10 01:56] LABS: Alanine Aminotransferase 37 Units/L (7-52); Albumin 2.9 g/dL (3.5-5.7); Albumin/Globulin Ratio 2.1 (1.1-2.2); Alkaline Phosphatase 160 Units/L (34-104); Aspartate Amino Transferase 40 Units/L (13-39); BUN/Creatinine Ratio 20 (6-26); Bilirubin,Direct 0.4 mg/dL (0.0-0.2); Bilirubin,Indirect 1.9 mg/dL (0.0-1.0); Bilirubin,Total 2.3 mg/dL (0.3-1.0); Blood Urea Nitrogen 27 mg/dL (6-20); Calcium 7.8 mg/dL (8.6-10.3); Carbon Dioxide 31 mEq/L (23-29); Chloride 95 mEq/L (98-107); Globulin 1.4 g/dL (2.4-3.5); Glucose 278 mg/dL (70-105); Osmolality,Calculated 287 (280-300); Potassium 3.6 mEq/L (3.5-5.1); Sodium 131 mEq/L (136-145); Total Protein 4.3 g/dL (6.4-8.9); eGFR For African Americans > 60 (> 60); eGFR For Non-African Americans 53 (> 60)
[2021-02-10 02:15] LABS: Anisocytosis 1+ (Not Present); Platelet Estimate Marked Decrease (Normal); Poikilocytosis 1+ (Not Present)
[2021-02-10] MEDS: Pantoprazole 40 MG VIAL IVP SCH ×2 (06:49→17:14)
[2021-02-10] MEDS ORDERED: Lactulose 200 GM, Sodium Chloride IRRigation 700 ML RC ONE (07:24)
[2021-02-10] MEDS: Sucralfate 1 GM TABLET PO SCH ×3 (08:21→17:12)
[2021-02-10] MEDS: Gabapentin 400 MG CAPSULE PO SCH ×3 (08:21→20:02)
[2021-02-10] MEDS: Lactulose Oral Soln 20 GM/30 ML UDC PO SCH ×3 (08:22→20:03)
[2021-02-10] MEDS: Bumetanide 1 MG TABLET PO SCH ×2 (08:22→17:12)
[2021-02-10] MEDS: Insulin LISPRO 300 UNITS/3 ML VIAL SUBQ SCH ×4 (08:23→20:03)
[2021-02-10] MEDS: Insulin DETEMIR 100 UNIT/ML X5UNITS SUBQ SCH (08:40)
[2021-02-10] MEDS: cefTRIAXone 1,000 MG in Water for inj. (sterile) 10 ML IVPB SCH (17:17)
[2021-02-10 18:55] LABS: Adenovirus F 40/41 PCR Not detected (Not detect); Astrovirus PCR Not detected (Not detect); C.difficile Toxin A/B Gene PCR Not detected (Not detect); Campylobacter by PCR Not detected (Not detect); Cryptosporidium by PCR Not detected (Not detect); Cyclospora cayetanensis PCR Not detected (Not detect); E. coli O157 by PCR Not detected (Not detect); Entamoeba histolytica PCR Not detected (Not detect); Enteroaggregative E.coli(EAEC) Not detected (Not detect); Enteropathogenic E.coli(EPEC) Not detected (Not detect); Enterotoxigenic E.coli (ETEC) Not detected (Not detect); Giardia lamblia PCR Not detected (Not detect); Norovirus GI/GII PCR Not detected (Not detect); Plesiomonas shigelloides PCR Not detected (Not detect); Rotavirus A PCR Not detected (Not detect); Salmonella PCR Not detected (Not detect); Sapovirus PCR Not detected (Not detect); Shig/EnteroinvasiveE coli EIEC Not detected (Not detect); Shigalike tox-prod E coli STEC Not detected (Not detect); Vibrio PCR Not detected (Not detect); Vibrio cholerae PCR Not detected (Not detect); Yersinia enterocolitica PCR Not detected (Not detect)
[2021-02-10] MEDS: allopurinoL 100 MG TABLET PO SCH (20:02)
[2021-02-10] MEDS: ALPRAZolam 0.25 MG TABLET PO PRN (20:21)
[2021-02-10] MEDS: Melatonin 3 MG TABLET PO PRN (20:21)
[2021-02-11 01:30] LABS: Basophils % 0.3 %; Mean Platelet Volume 9.9 fL (9.4-12.4); Nucleated Red Blood Cells 1.2 /100 WBC (0)
[2021-02-11 01:32] LABS: Eosinophils % 1.2 %; Hematocrit 20.7 % (37.5-50.1); Hemoglobin 7.3 g/dL (12.9-16.9); Immature Granulocytes % 4.6 % (0-4); Immature Platelets 1.9 % (1.1-6.1); Lymphocytes # 0.1 K/mcL (0.6-4.6); Lymphocytes % 3.1 %; Mean Corpuscular HGB Conc 35.3 g/dL (31.6-35.5); Mean Corpuscular Hemoglobin 30.8 pg (28.0-33.3); Mean Corpuscular Volume 87.3 fL (83.0-100.0); Monocytes # 0.2 K/mcL (0.0-1.3); Monocytes % 6.4 %; Neutrophils # 2.8 K/mcL (1.6-8.9); Red Blood Count 2.37 M/mcL (4.19-5.50); Red Cell Distribution Width 15.9 % (11.5-14.5); Segmented Neutrophils % 84.4 %; White Blood Count 3.3 K/mcL (4.3-11.1)
[2021-02-11 01:33] LABS: Platelet Count 35 K/mcL (140-400)
[2021-02-11 01:50] LABS: Platelet Estimate Slight Decrease (Normal)
[2021-02-11 01:52] LABS: Alanine Aminotransferase 44 Units/L (7-52); Albumin 2.9 g/dL (3.5-5.7); Albumin/Globulin Ratio 1.8 (1.1-2.2); Alkaline Phosphatase 192 Units/L (34-104); Aspartate Amino Transferase 48 Units/L (13-39); BUN/Creatinine Ratio 16 (6-26); Bilirubin,Direct 0.4 mg/dL (0.0-0.2); Bilirubin,Total 2.4 mg/dL (0.3-1.0); Blood Urea Nitrogen 23 mg/dL (6-20); Calcium 7.9 mg/dL (8.6-10.3); Carbon Dioxide 28 mEq/L (23-29); Chloride 95 mEq/L (98-107); Globulin 1.6 g/dL (2.4-3.5); Glucose 288 mg/dL (70-105); Osmolality,Calculated 284 (280-300); Potassium 3.7 mEq/L (3.5-5.1); Sodium 130 mEq/L (136-145); Total Protein 4.5 g/dL (6.4-8.9); eGFR For African Americans > 60 (> 60); eGFR For Non-African Americans 52 (> 60)
[2021-02-11] MEDS: Insulin DETEMIR 100 UNIT/ML X5UNITS SUBQ SCH ×3 (02:34→21:35)
[2021-02-11] MEDS: Pantoprazole 40 MG VIAL IVP SCH ×2 (06:11→17:07)
[2021-02-11] MEDS: Lactulose Oral Soln 20 GM/30 ML UDC PO SCH ×3 (07:45→21:32)
[2021-02-11] MEDS: Sucralfate 1 GM TABLET PO SCH ×3 (07:46→17:07)
[2021-02-11] MEDS: Bumetanide 1 MG TABLET PO SCH ×2 (07:46→17:07)
[2021-02-11] MEDS: Gabapentin 400 MG CAPSULE PO SCH ×3 (07:47→21:12)
[2021-02-11] MEDS: Insulin LISPRO 300 UNITS/3 ML VIAL SUBQ SCH ×3 (07:52→17:03)
[2021-02-11] MEDS ORDERED: Zinc Sulfate 220 MG CAPSULE PO SCH (13:15)
[2021-02-11] MEDS ORDERED: 0.9 % Sodium Chloride 250 ML ONE (13:59)
[2021-02-11] MEDS: cefTRIAXone 1,000 MG in Water for inj. (sterile) 10 ML IVPB SCH (17:04)
[2021-02-11 18:42] LABS: Basophils % 0.3 %; Hematocrit 19.5 % (37.5-50.1); Lymphocytes % 3.3 %; Red Cell Distribution Width 16.2 % (11.5-14.5)
[2021-02-11 18:43] LABS: Eosinophils % 0.7 %; Hemoglobin 6.6 g/dL (12.9-16.9); Immature Platelets 2.6 % (1.1-6.1); Lymphocytes # 0.1 K/mcL (0.6-4.6); Mean Corpuscular HGB Conc 33.8 g/dL (31.6-35.5); Mean Corpuscular Hemoglobin 29.9 pg (28.0-33.3); Mean Corpuscular Volume 88.2 fL (83.0-100.0); Mean Platelet Volume 10.7 fL (9.4-12.4); Monocytes # 0.2 K/mcL (0.0-1.3); Monocytes % 6.6 %; Neutrophils # 2.6 K/mcL (1.6-8.9); Red Blood Count 2.21 M/mcL (4.19-5.50); Segmented Neutrophils % 87.1 %
[2021-02-11 18:47] LABS: Platelet Count 41 K/mcL (140-400)
[2021-02-11] MEDS ORDERED: 0.9 % Sodium Chloride 250 ML IVC SCH (19:00)
[2021-02-11 19:09] LABS: Hypochromasia Present (Not Present); Platelet Estimate Decreased (Normal); Polychromasia 1+ (Not Present)
[2021-02-11] MEDS ORDERED: Insulin LISPRO 300 UNITS/3 ML VIAL SUBQ SCH (21:00)
[2021-02-11] MEDS: allopurinoL 100 MG TABLET PO SCH (21:12)
[2021-02-11] MEDS: Melatonin 3 MG TABLET PO PRN (21:32)
[2021-02-11] MEDS: ALPRAZolam 0.25 MG TABLET PO PRN (21:32)
[2021-02-12 01:14] LABS: Basophils % 0.3 %; Eosinophils % 1.2 %; Hemoglobin 7.5 g/dL (12.9-16.9)
[2021-02-12 01:16] LABS: Hematocrit 21.3 % (37.5-50.1); Immature Granulocytes % 2.7 % (0-4); Immature Platelets 1.5 % (1.1-6.1); Lymphocytes # 0.1 K/mcL (0.6-4.6); Mean Corpuscular HGB Conc 35.2 g/dL (31.6-35.5); Mean Corpuscular Hemoglobin 30.6 pg (28.0-33.3); Mean Corpuscular Volume 86.9 fL (83.0-100.0); Mean Platelet Volume 10.3 fL (9.4-12.4); Monocytes # 0.3 K/mcL (0.0-1.3); Monocytes % 9.1 %; Nucleated Red Blood Cells 0.9 /100 WBC (0); Red Blood Count 2.45 M/mcL (4.19-5.50); Red Cell Distribution Width 15.9 % (11.5-14.5); Segmented Neutrophils % 83.7 %; White Blood Count 3.3 K/mcL (4.3-11.1)
[2021-02-12 01:18] LABS: Neutrophils # 2.8 K/mcL (1.6-8.9); Platelet Count 43 K/mcL (140-400)
[2021-02-12 01:34] LABS: Alanine Aminotransferase 53 Units/L (7-52); Albumin 2.9 g/dL (3.5-5.7); Albumin/Globulin Ratio 1.9 (1.1-2.2); Alkaline Phosphatase 215 Units/L (34-104); Aspartate Amino Transferase 57 Units/L (13-39); BUN/Creatinine Ratio 20 (6-26); Bilirubin,Direct 0.4 mg/dL (0.0-0.2); Bilirubin,Indirect 1.5 mg/dL (0.0-1.0); Bilirubin,Total 1.9 mg/dL (0.3-1.0); Blood Urea Nitrogen 26 mg/dL (6-20); Calcium 7.7 mg/dL (8.6-10.3); Carbon Dioxide 28 mEq/L (23-29); Chloride 94 mEq/L (98-107); Globulin 1.5 g/dL (2.4-3.5); Glucose 350 mg/dL (70-105); Osmolality,Calculated 285 (280-300); Sodium 128 mEq/L (136-145); Total Protein 4.4 g/dL (6.4-8.9); eGFR For African Americans > 60 (> 60); eGFR For Non-African Americans 55 (> 60)
[2021-02-12] MEDS: Pantoprazole 40 MG VIAL IVP SCH (05:52)
[2021-02-12 07:39] VITALS: BP 112/51
[2021-02-12] MEDS: Gabapentin 400 MG CAPSULE PO SCH (08:01)
[2021-02-12] MEDS: Sucralfate 1 GM TABLET PO SCH (08:01)
[2021-02-12] MEDS: Bumetanide 1 MG TABLET PO SCH (08:02)
[2021-02-12] MEDS: Insulin LISPRO 300 UNITS/3 ML VIAL SUBQ SCH (08:03)
[2021-02-12] MEDS: Lactulose Oral Soln 20 GM/30 ML UDC PO SCH (08:03)
[2021-02-12] MEDS: Insulin DETEMIR 100 UNIT/ML X5UNITS SUBQ SCH (08:04)
== END 2021-02-12 10:12 | disposition home or self-care (01) | DRG 433 ==
LOC: EMEROOARM 13:40 → 2ANU 13:40 → SUATTDRO 16:09 → 2ANU 17:09 → 2NENU 02-07 16:14
PROVIDERS: ADMIT Internal Medicine; ATTEND Internal Medicine
PROC: ENDOEBX (2021-02-07 10:30)

== ENCOUNTER 2021-02-25 12:34 | Inpatient (IN) ==
[2021-02-25] MEDS ORDERED: Lactulose Oral Soln 20 GM/30 ML UDC PO SCH (14:00)
[2021-02-25] MEDS ORDERED: Spironolactone 25 MG TABLET PO SCH (14:00)
[2021-02-25 14:05] LABS: Basophils % 0.5 %; Eosinophils % 1.4 %; Hematocrit 19.1 % (37.5-50.1); Hemoglobin 6.4 g/dL (12.9-16.9); Lymphocytes # 0.2 K/mcL (0.6-4.6); Lymphocytes % 8.4 %; Mean Corpuscular HGB Conc 33.5 g/dL (31.6-35.5); Mean Corpuscular Hemoglobin 30.2 pg (28.0-33.3); Mean Corpuscular Volume 90.1 fL (83.0-100.0); Monocytes # 0.2 K/mcL (0.0-1.3); Monocytes % 7.9 %; Nucleated Red Blood Cells 1.4 /100 WBC (0); Red Blood Count 2.12 M/mcL (4.19-5.50); Red Cell Distribution Width 16.4 % (11.5-14.5); Segmented Neutrophils % 74.8 %; White Blood Count 2.2 K/mcL (4.3-11.1)
[2021-02-25 14:06] LABS: Neutrophils # 1.7 K/mcL (1.6-8.9); Platelet Count 36 K/mcL (140-400)
[2021-02-25 14:18] LABS: INR 1.1; Prothrombin Time 12.4 Seconds (9.4-12.1)
[2021-02-25 14:24] LABS: Albumin 3.3 g/dL (3.5-5.7); Albumin/Globulin Ratio 2.2 (1.1-2.2); Bilirubin,Total 3.2 mg/dL (0.3-1.0); Calcium 9.6 mg/dL (8.6-10.3); Globulin 1.5 g/dL (2.4-3.5); Potassium 4.3 mEq/L (3.5-5.1); Total Protein 4.8 g/dL (6.4-8.9)
[2021-02-25 14:36] LABS: Platelet Estimate Decreased (Normal)
[2021-02-25] MEDS ORDERED: Naloxone 0.4 MG/ML INJ IVP PRN (15:33)
[2021-02-25] MEDS ORDERED: Ondansetron 4 MG/2 ML VIAL IVP PRN (15:33)
[2021-02-25] MEDS ORDERED: Dextrose Gel 15 GM/37.5 ML TUBE PO PRN ×2 (15:35)
[2021-02-25] MEDS ORDERED: D5% in Water 1,000 ML IVC PRN (15:35)
[2021-02-25] MEDS ORDERED: *HR* Dextrose 50 % in Water (Vial) 50 ML VIAL IVP PRN (15:35)
[2021-02-25] MEDS ORDERED: 0.9 % Sodium Chloride 250 ML ONE (15:59)
[2021-02-25] MEDS: Insulin LISPRO 300 UNITS/3 ML VIAL SUBQ SCH (17:26)
[2021-02-25] MEDS: Lactulose 200 GM, Sodium Chloride IRRigation 700 ML RC SCH ×2 (17:27→21:55)
[2021-02-25 20:44] LABS: VBG HCO3 30 mEq/L (21-27); VBG PCO2 44 mmHg (41-51); VBG PH 7.44 pH Units (7.32-7.42); VBG PO2 139 mmHg (25-50)
[2021-02-25] MEDS: Insulin DETEMIR 100 UNIT/ML X5UNITS SUBQ SCH (21:24)
[2021-02-25 23:01] LABS: Hematocrit 20.8 % (37.5-50.1); Hemoglobin 7.1 g/dL (12.9-16.9)
[2021-02-26] MEDS: Melatonin 3 MG TABLET PO SCH ×2 (00:12→20:05)
[2021-02-26 03:31] LABS: Bilirubin,Urine Negative (Negative); Blood,Urine Negative (Negative); Clarity,Urine Clear (Clear); Color,Urine Light-Yellow (Yellow); Glucose,Urine (UA) Normal (Normal); Ketones,Urine Negative (Negative); Leukocyte Esterase,Urine Negative (Negative); Nitrite,Urine Negative (Negative); Protein,Urine Negative (Neg-Trace); Specific Gravity,Urine 1.016 (1.010-1.025)
[2021-02-26 05:13] LABS: Mean Corpuscular Hemoglobin 30.4 pg (28.0-33.3); Red Cell Distribution Width 16.2 % (11.5-14.5)
[2021-02-26 05:15] LABS: Basophils % 0.5 %; Eosinophils % 1.5 %; Hematocrit 19.1 % (37.5-50.1); Hemoglobin 6.5 g/dL (12.9-16.9); Immature Granulocytes % 4.9 % (0-4); Immature Platelets 1.6 % (1.1-6.1); Lymphocytes # 0.1 K/mcL (0.6-4.6); Lymphocytes % 4.4 %; Mean Corpuscular Volume 89.3 fL (83.0-100.0); Mean Platelet Volume 9.9 fL (9.4-12.4); Monocytes # 0.2 K/mcL (0.0-1.3); Monocytes % 10.3 %; Neutrophils # 1.6 K/mcL (1.6-8.9); Nucleated Red Blood Cells 1.5 /100 WBC (0); Red Blood Count 2.14 M/mcL (4.19-5.50); Segmented Neutrophils % 78.4 %
[2021-02-26 05:21] LABS: Platelet Count 42 K/mcL (140-400)
[2021-02-26 05:32] LABS: Calcium 9.4 mg/dL (8.6-10.3)
[2021-02-26] MEDS ORDERED: 0.9 % Sodium Chloride 250 ML ONE ×2 (05:49→06:32)
[2021-02-26] MEDS: Insulin LISPRO 300 UNITS/3 ML VIAL SUBQ SCH ×3 (07:35→17:27)
[2021-02-26] MEDS: Lactulose 200 GM, Sodium Chloride IRRigation 700 ML RC SCH (08:02)
[2021-02-26] MEDS: Bumetanide 1 MG TABLET PO SCH ×2 (08:30→15:29)
[2021-02-26 11:26] LABS: Influenza A PCR Negative (Negative); Influenza B PCR Negative (Negative); Resp. Syncytial Virus PCR Negative (Negative)
[2021-02-26 11:35] LABS: SARS-CoV-2 by PCR (In House) Negative (Negative)
[2021-02-26] MEDS ORDERED: ALPRAZolam 1 MG TABLET PO PRN (11:46)
[2021-02-26] MEDS ORDERED: Nitroglycerin 0.4 MG TAB.SUBL SL PRN (11:46)
[2021-02-26] MEDS ORDERED: NON-FORMULARY MEDICATION 1 EACH EACH (Zinc Gluconate [Zinc] 50 MG Tablet) PO SCH (12:00)
[2021-02-26 12:29] LABS: Hematocrit 25.3 % (37.5-50.1)
[2021-02-26 12:30] LABS: Hemoglobin 8.5 g/dL (12.9-16.9)
[2021-02-26] MEDS: Lactulose Oral Soln 20 GM/30 ML UDC PO SCH ×2 (15:28→20:04)
[2021-02-26] MEDS: Gabapentin 300 MG CAPSULE PO SCH ×2 (15:28→20:05)
[2021-02-26 17:03] LABS: Glucose,Peritoneal Fluid 247 mg/dL (No Ref Range); LDH,Peritoneal Fluid 66 Units/L (No Ref Range); Total Protein,Peritoneal Fluid < 2.0 g/dL
[2021-02-26 17:19] LABS: RBC,Peritoneal Fluid 4000 RBC/mcL
[2021-02-26 18:39] LABS: Appearance of Peritoneal Fl CLOUDY (Clear)
[2021-02-26 18:42] LABS: Basophils,Peritoneal Fluid 0 %; Eosinophils,Peritoneal Fluid 0 %
[2021-02-26] MEDS: Sucralfate 1 GM TABLET PO SCH (20:05)
[2021-02-26] MEDS: Insulin DETEMIR 100 UNIT/ML X5UNITS SUBQ SCH (20:06)
[2021-02-26] MEDS ORDERED: allopurinoL 100 MG TABLET PO SCH (21:00)
[2021-02-27 06:01] LABS: Hematocrit 22.5 % (37.5-50.1); Hemoglobin 7.7 g/dL (12.9-16.9); Immature Platelets 1.8 % (1.1-6.1); Mean Corpuscular HGB Conc 34.2 g/dL (31.6-35.5); Mean Corpuscular Volume 87.5 fL (83.0-100.0); Red Blood Count 2.57 M/mcL (4.19-5.50); Red Cell Distribution Width 16.8 % (11.5-14.5)
[2021-02-27 06:13] LABS: BUN/Creatinine Ratio 20 (6-26); Blood Urea Nitrogen 26 mg/dL (6-20); Calcium 8.7 mg/dL (8.6-10.3); Carbon Dioxide 35 mEq/L (23-29); Chloride 94 mEq/L (98-107); Glucose 133 mg/dL (70-105); Osmolality,Calculated 285 (280-300); Potassium 3.9 mEq/L (3.5-5.1); Sodium 134 mEq/L (136-145); eGFR For African Americans > 60 (> 60); eGFR For Non-African Americans 55 (> 60)
[2021-02-27 06:21] VITALS: BP 105/60
[2021-02-27] MEDS: Bumetanide 1 MG TABLET PO SCH (07:54)
[2021-02-27] MEDS: Gabapentin 300 MG CAPSULE PO SCH (07:56)
[2021-02-27] MEDS: Sucralfate 1 GM TABLET PO SCH (07:56)
[2021-02-27] MEDS: Lactulose Oral Soln 20 GM/30 ML UDC PO SCH (07:57)
[2021-02-27] MEDS: Insulin LISPRO 300 UNITS/3 ML VIAL SUBQ SCH (08:05)
[2021-02-27] MEDS ORDERED: Ascorbic Acid 500 MG TABLET PO SCH (09:00)
== END 2021-02-27 10:58 | disposition home or self-care (01) | DRG 442 ==
LOC: EMEROOARM 12:34 → 3ANU 12:34 → SUATTDRO 15:56 → 3ANU 16:36
PROVIDERS: ADMIT Internal Medicine; ATTEND Internal Medicine

== ENCOUNTER 2021-03-18 13:13 | Observation (INO) ==
[2021-03-18 16:17] LABS: Bilirubin,Urine Negative (Negative); Blood,Urine Negative (Negative); Clarity,Urine Clear (Clear); Color,Urine Light-Yellow (Yellow); Glucose,Urine (UA) Normal (Normal); Ketones,Urine Negative (Negative); Leukocyte Esterase,Urine Negative (Negative); Nitrite,Urine Negative (Negative); Protein,Urine Negative (Neg-Trace); Specific Gravity,Urine 1.011 (1.010-1.025); Urobilinogen,Urine Normal (Normal)
[2021-03-18 16:18] LABS: Red Cell Distribution Width 17.6 % (11.5-14.5)
[2021-03-18 16:20] LABS: Hematocrit 17.5 % (37.5-50.1); Immature Platelets 3.5 % (1.1-6.1); Mean Corpuscular HGB Conc 33.1 g/dL (31.6-35.5); Mean Corpuscular Hemoglobin 29.7 pg (28.0-33.3); Mean Corpuscular Volume 89.7 fL (83.0-100.0); Mean Platelet Volume 10.8 fL (9.4-12.4); Nucleated Red Blood Cells 1.3 /100 WBC (0); Red Blood Count 1.95 M/mcL (4.19-5.50); White Blood Count 2.3 K/mcL (4.3-11.1)
[2021-03-18 16:25] LABS: INR 1.2; Prothrombin Time 13.6 Seconds (9.4-12.1)
[2021-03-18 16:28] LABS: Activated Partial Thrombo Time 29.5 Seconds (26.0-36.0)
[2021-03-18 17:15] LABS: Platelet Count 55 K/mcL (140-400)
[2021-03-18 17:16] LABS: Alanine Aminotransferase 29 Units/L (7-52); Albumin 3.4 g/dL (3.5-5.7); Albumin/Globulin Ratio 1.9 (1.1-2.2); Alkaline Phosphatase 154 Units/L (34-104); Aspartate Amino Transferase 30 Units/L (13-39); BUN/Creatinine Ratio 23 (6-26); Bilirubin,Direct 0.4 mg/dL (0.0-0.2); Bilirubin,Indirect 2.7 mg/dL (0.0-1.0); Bilirubin,Total 3.1 mg/dL (0.3-1.0); Blood Urea Nitrogen 38 mg/dL (6-20); Calcium 9.2 mg/dL (8.6-10.3); Carbon Dioxide 31 mEq/L (23-29); Chloride 93 mEq/L (98-107); Ethanol < 10 mg/dL (Less than 10); Globulin 1.8 g/dL (2.4-3.5); Glucose 203 mg/dL (70-105); Hemoglobin 5.8 g/dL (12.9-16.9); Osmolality,Calculated 295 (280-300); Potassium 4.4 mEq/L (3.5-5.1); Sodium 135 mEq/L (136-145); Total Protein 5.2 g/dL (6.4-8.9); Troponin I < 0.03 ng/mL (< 0.04); eGFR For African Americans 51 (> 60); eGFR For Non-African Americans 42 (> 60)
[2021-03-18 17:22] LABS: Hypochromasia Present (Not Present); Lymphocytes # 0.2 K/mcL (0.6-4.6); Monocytes # 0.1 K/mcL (0.0-1.3); Neutrophils # 1.9 K/mcL (1.6-8.9); Platelet Estimate Decreased (Normal)
[2021-03-18] MEDS ORDERED: 0.9 % Sodium Chloride 250 ML ONE ×2 (17:37→22:46)
[2021-03-18] MEDS ORDERED: Ondansetron 4 MG/2 ML VIAL IVP PRN (17:46)
[2021-03-18] MEDS ORDERED: Acetaminophen 325 MG TABLET PO PRN (17:46)
[2021-03-18] MEDS ORDERED: Naloxone 0.4 MG/ML INJ IVP PRN (17:46)
[2021-03-18] MEDS ORDERED: *HR* Dextrose 50 % in Water (Vial) 50 ML VIAL IVP PRN (17:52)
[2021-03-18] MEDS ORDERED: Dextrose Gel 15 GM/37.5 ML TUBE PO PRN ×2 (17:52)
[2021-03-18] MEDS ORDERED: D5% in Water 1,000 ML IVC PRN (17:52)
[2021-03-18] MEDS ORDERED: Ipratropium/Albuterol Neb 3 ML IH PRN (18:23)
[2021-03-18] MEDS ORDERED: ALPRAZolam 1 MG TABLET PO PRN (20:18)
[2021-03-18] MEDS ORDERED: Nitroglycerin 0.4 MG TAB.SUBL SL PRN (20:18)
[2021-03-18] MEDS ORDERED: Insulin LISPRO 300 UNITS/3 ML VIAL SUBQ SCH (21:00)
[2021-03-18] MEDS ORDERED: allopurinoL 100 MG TABLET PO SCH (21:00)
[2021-03-18] MEDS ORDERED: Bumetanide 1 MG TABLET PO SCH (21:00)
[2021-03-18] MEDS: Sucralfate 1 GM TABLET PO SCH (21:41)
[2021-03-19] MEDS ORDERED: polyethylene glycoL 3350 17 GM POWD.PACK PO PRN (05:51)
[2021-03-19 06:55] VITALS: BP 115/41
[2021-03-19 07:53] LABS: Hemoglobin 7.3 g/dL (12.9-16.9); Mean Corpuscular Volume 87.4 fL (83.0-100.0)
[2021-03-19 07:55] LABS: Hematocrit 21.6 % (37.5-50.1); Immature Platelets 3.4 % (1.1-6.1); Lymphocytes # 0.1 K/mcL (0.6-4.6); Mean Corpuscular HGB Conc 33.8 g/dL (31.6-35.5); Mean Corpuscular Hemoglobin 29.6 pg (28.0-33.3); Mean Platelet Volume 9.6 fL (9.4-12.4); Nucleated Red Blood Cells 2.9 /100 WBC (0); Red Blood Count 2.47 M/mcL (4.19-5.50); White Blood Count 2.1 K/mcL (4.3-11.1)
[2021-03-19 08:03] LABS: Platelet Count 56 K/mcL (140-400)
[2021-03-19 08:23] LABS: Albumin 3.2 g/dL (3.5-5.7); Bilirubin,Direct 0.6 mg/dL (0.0-0.2); Bilirubin,Indirect 3.5 mg/dL (0.0-1.0); Bilirubin,Total 4.1 mg/dL (0.3-1.0); Calcium 8.8 mg/dL (8.6-10.3); Globulin 1.6 g/dL (2.4-3.5); Magnesium 1.8 mg/dL (1.6-2.6); Total Protein 4.8 g/dL (6.4-8.9)
[2021-03-19 08:27] LABS: Thyroid Stimulating Hormone 4.559 mcIU/mL (0.340-5.600)
[2021-03-19] MEDS: Lactulose Oral Soln 20 GM/30 ML UDC PO SCH ×2 (08:31→14:35)
[2021-03-19] MEDS: Sucralfate 1 GM TABLET PO SCH (08:31)
[2021-03-19] MEDS: Gabapentin 300 MG CAPSULE PO SCH ×2 (08:31→14:35)
[2021-03-19] MEDS: Insulin LISPRO 300 UNITS/3 ML VIAL SUBQ SCH ×2 (08:32→12:21)
[2021-03-19 08:57] LABS: Monocytes # 0.2 K/mcL (0.0-1.3); Neutrophils # 1.8 K/mcL (1.6-8.9); Platelet Estimate Decreased (Normal)
[2021-03-19 08:58] LABS: Anisocytosis 1+ (Not Present); Polychromasia 1+ (Not Present)
[2021-03-19] MEDS ORDERED: Ascorbic Acid 500 MG TABLET PO SCH (09:00)
[2021-03-19] MEDS ORDERED: Zinc Sulfate 220 MG CAPSULE PO SCH (09:00)
[2021-03-19 09:06] LABS: Estimated Average Glucose 117 mg/dl; Hemoglobin A1C 5.7 %
== END 2021-03-19 16:47 | disposition home health service (06) ==
LOC: SUATTDRO → 2NENU 13:13 → EMEROOARM 13:13 → SUATTDRO 19:39 → 2NENU 20:53
PROVIDERS: ADMIT Pharmacist; ATTEND Pharmacist

== ENCOUNTER 2021-04-14 10:19 | Inpatient (IN) ==
[2021-04-14 11:22] LABS: Eosinophils % 1.7 %; Hematocrit 16.5 % (37.5-50.1); Immature Granulocytes % 14.9 % (0-4); Immature Platelets 3.7 % (1.1-6.1); Lymphocytes # 0.1 K/mcL (0.6-4.6); Lymphocytes % 5.8 %; Mean Corpuscular HGB Conc 32.7 g/dL (31.6-35.5); Mean Corpuscular Hemoglobin 29.7 pg (28.0-33.3); Mean Corpuscular Volume 90.7 fL (83.0-100.0); Mean Platelet Volume 10.5 fL (9.4-12.4); Monocytes # 0.2 K/mcL (0.0-1.3); Neutrophils # 0.7 K/mcL (1.6-8.9); Nucleated Red Blood Cells 1.7 /100 WBC (0); Red Blood Count 1.82 M/mcL (4.19-5.50); Segmented Neutrophils % 58.6 %; White Blood Count 1.2 K/mcL (4.3-11.1)
[2021-04-14 11:32] LABS: Platelet Count 40 K/mcL (140-400)
[2021-04-14 11:33] LABS: Alanine Aminotransferase 25 Units/L (7-52); Albumin/Globulin Ratio 1.9 (1.1-2.2); Alkaline Phosphatase 168 Units/L (34-104); Aspartate Amino Transferase 26 Units/L (13-39); BUN/Creatinine Ratio 21 (6-26); Bilirubin,Total 2.3 mg/dL (0.3-1.0); Blood Urea Nitrogen 34 mg/dL (6-20); Calcium 8.7 mg/dL (8.6-10.3); Carbon Dioxide 32 mEq/L (23-29); Chloride 97 mEq/L (98-107); Globulin 1.6 g/dL (2.4-3.5); Glucose 213 mg/dL (70-105); Osmolality,Calculated 292 (280-300); Potassium 4.4 mEq/L (3.5-5.1); Sodium 134 mEq/L (136-145); Total Protein 4.6 g/dL (6.4-8.9); eGFR For African Americans 53 (> 60); eGFR For Non-African Americans 44 (> 60)
[2021-04-14 11:34] LABS: Hemoglobin 5.4 g/dL (12.9-16.9)
[2021-04-14 11:44] LABS: INR 1.2; Platelet Estimate Decreased (Normal); Prothrombin Time 13.8 Seconds (9.4-12.1)
[2021-04-14 11:45] LABS: Anisocytosis 1+ (Not Present); Poikilocytosis 1+ (Not Present); Polychromasia 1+ (Not Present)
[2021-04-14 11:46] LABS: Activated Partial Thrombo Time 30.6 Seconds (26.0-36.0)
[2021-04-14] MEDS ORDERED: Naloxone 0.4 MG/ML INJ IVP PRN (12:14)
[2021-04-14] MEDS ORDERED: Ondansetron 4 MG/2 ML VIAL IVP PRN (12:14)
[2021-04-14 12:40] LABS: Troponin I < 0.03 ng/mL (< 0.04)
[2021-04-14] MEDS ORDERED: 0.9 % Sodium Chloride 250 ML IVC SCH (18:30)
[2021-04-14] MEDS: Gabapentin 300 MG CAPSULE PO SCH (20:57)
[2021-04-14] MEDS: Lactulose Oral Soln 20 GM/30 ML UDC PO SCH (20:57)
[2021-04-14] MEDS: Sucralfate 1 GM TABLET PO SCH (20:58)
[2021-04-14] MEDS: allopurinoL 100 MG TABLET PO SCH (20:58)
[2021-04-14] MEDS: ALPRAZolam 1 MG TABLET PO PRN (21:01)
[2021-04-14] MEDS: Bumetanide 1 MG TABLET PO SCH (21:03)
[2021-04-15 06:00] LABS: Nucleated Red Blood Cells 3.3 /100 WBC (0); Red Cell Distribution Width 17.6 % (11.5-14.5)
[2021-04-15 06:02] LABS: Basophils % 0.8 %; Eosinophils % 2.5 %; Hematocrit 18.4 % (37.5-50.1); Immature Granulocytes % 2.5 % (0-4); Lymphocytes # 0.1 K/mcL (0.6-4.6); Lymphocytes % 10.7 %; Mean Corpuscular HGB Conc 32.1 g/dL (31.6-35.5); Mean Corpuscular Hemoglobin 29.1 pg (28.0-33.3); Mean Corpuscular Volume 90.6 fL (83.0-100.0); Mean Platelet Volume 11.1 fL (9.4-12.4); Monocytes # 0.2 K/mcL (0.0-1.3); Monocytes % 15.7 %; Neutrophils # 0.8 K/mcL (1.6-8.9); Red Blood Count 2.03 M/mcL (4.19-5.50); Segmented Neutrophils % 67.8 %; White Blood Count 1.2 K/mcL (4.3-11.1)
[2021-04-15 06:16] LABS: Hemoglobin 5.9 g/dL (12.9-16.9); Platelet Count 46 K/mcL (140-400)
[2021-04-15 06:20] LABS: Calcium 8.4 mg/dL (8.6-10.3); Magnesium 1.9 mg/dL (1.6-2.6); Potassium 4.1 mEq/L (3.5-5.1)
[2021-04-15 06:39] LABS: Hypochromasia Present (Not Present); Microcytosis Present (Not Present); Polychromasia 1+ (Not Present)
[2021-04-15 06:40] LABS: Anisocytosis 1+ (Not Present); Platelet Estimate Marked Decrease (Normal)
[2021-04-15] MEDS: Gabapentin 300 MG CAPSULE PO SCH ×2 (08:19→21:11)
[2021-04-15] MEDS: Lactulose Oral Soln 20 GM/30 ML UDC PO SCH ×4 (08:19→22:04)
[2021-04-15] MEDS: Loratadine 10 MG TABLET PO SCH (08:19)
[2021-04-15] MEDS: Ascorbic Acid 500 MG TABLET PO SCH (08:19)
[2021-04-15] MEDS: Bumetanide 1 MG TABLET PO SCH ×2 (08:19→16:50)
[2021-04-15] MEDS: Sucralfate 1 GM TABLET PO SCH ×3 (08:19→21:11)
[2021-04-15] MEDS ORDERED: Dextrose Gel 15 GM/37.5 ML TUBE PO PRN ×2 (08:35)
[2021-04-15] MEDS ORDERED: D5% in Water 1,000 ML IVC PRN (08:35)
[2021-04-15] MEDS ORDERED: *HR* Dextrose 50 % in Water (Vial) 50 ML VIAL IVP PRN (08:35)
[2021-04-15] MEDS: Insulin DETEMIR 100 UNIT/ML X5UNITS SUBQ SCH ×2 (09:13→21:12)
[2021-04-15] MEDS: Insulin LISPRO 300 UNITS/3 ML VIAL SUBQ SCH ×4 (09:14→21:17)
[2021-04-15 12:43] LABS: Hematocrit 22.7 % (37.5-50.1); Hemoglobin 7.6 g/dL (12.9-16.9); Immature Platelets 3.9 % (1.1-6.1); Mean Corpuscular HGB Conc 33.5 g/dL (31.6-35.5); Mean Corpuscular Volume 89.7 fL (83.0-100.0); Mean Platelet Volume 9.6 fL (9.4-12.4); Red Blood Count 2.53 M/mcL (4.19-5.50); Red Cell Distribution Width 17.1 % (11.5-14.5); White Blood Count 1.4 K/mcL (4.3-11.1)
[2021-04-15 19:37] LABS: Hematocrit 21.2 % (37.5-50.1); Hemoglobin 7.3 g/dL (12.9-16.9)
[2021-04-15] MEDS: allopurinoL 100 MG TABLET PO SCH (21:11)
[2021-04-15] MEDS: ALPRAZolam 1 MG TABLET PO PRN (23:38)
[2021-04-16 04:29] LABS: Basophils % 0.8 %; Eosinophils # 0.1 K/mcL (0.0-0.6); Eosinophils % 3.8 %; Nucleated Red Blood Cells 4.5 /100 WBC (0); Red Blood Count 2.35 M/mcL (4.19-5.50); White Blood Count 1.3 K/mcL (4.3-11.1)
[2021-04-16 04:31] LABS: Hematocrit 21.2 % (37.5-50.1); Hemoglobin 7.1 g/dL (12.9-16.9); Lymphocytes # 0.1 K/mcL (0.6-4.6); Lymphocytes % 7.6 %; Mean Corpuscular HGB Conc 33.5 g/dL (31.6-35.5); Mean Corpuscular Hemoglobin 30.2 pg (28.0-33.3); Mean Corpuscular Volume 90.2 fL (83.0-100.0); Mean Platelet Volume 10.7 fL (9.4-12.4); Monocytes # 0.3 K/mcL (0.0-1.3); Monocytes % 20.5 %; Red Cell Distribution Width 17.5 % (11.5-14.5); Segmented Neutrophils % 64.3 %
[2021-04-16 04:50] LABS: Alanine Aminotransferase 27 Units/L (7-52); Albumin 3.1 g/dL (3.5-5.7); Albumin/Globulin Ratio 1.9 (1.1-2.2); Alkaline Phosphatase 160 Units/L (34-104); Aspartate Amino Transferase 30 Units/L (13-39); BUN/Creatinine Ratio 21 (6-26); Bilirubin,Total 3.3 mg/dL (0.3-1.0); Blood Urea Nitrogen 29 mg/dL (6-20); Calcium 8.8 mg/dL (8.6-10.3); Carbon Dioxide 31 mEq/L (23-29); Chloride 96 mEq/L (98-107); Globulin 1.6 g/dL (2.4-3.5); Glucose 236 mg/dL (70-105); Osmolality,Calculated 295 (280-300); Potassium 3.8 mEq/L (3.5-5.1); Sodium 136 mEq/L (136-145); Total Protein 4.7 g/dL (6.4-8.9); eGFR For African Americans > 60 (> 60); eGFR For Non-African Americans 52 (> 60)
[2021-04-16 06:17] LABS: Neutrophils # 0.8 K/mcL (1.6-8.9); Platelet Count 47 K/mcL (140-400)
[2021-04-16 06:22] LABS: Anisocytosis 1+ (Not Present); Platelet Estimate Decreased (Normal); Polychromasia 1+ (Not Present)
[2021-04-16 09:25] LABS: Hemoglobin 7.2 g/dL (12.9-16.9); Mean Platelet Volume 10.8 fL (9.4-12.4); Red Cell Distribution Width 17.2 % (11.5-14.5)
[2021-04-16 09:27] LABS: Hematocrit 21.7 % (37.5-50.1); Immature Platelets 4.4 % (1.1-6.1); Mean Corpuscular HGB Conc 33.2 g/dL (31.6-35.5); Mean Corpuscular Hemoglobin 29.8 pg (28.0-33.3); Mean Corpuscular Volume 89.7 fL (83.0-100.0); Red Blood Count 2.42 M/mcL (4.19-5.50); White Blood Count 1.3 K/mcL (4.3-11.1)
[2021-04-16] MEDS: Ascorbic Acid 500 MG TABLET PO SCH (10:28)
[2021-04-16] MEDS: Sucralfate 1 GM TABLET PO SCH ×3 (10:28→20:35)
[2021-04-16] MEDS: Loratadine 10 MG TABLET PO SCH (10:29)
[2021-04-16] MEDS: Gabapentin 300 MG CAPSULE PO SCH ×2 (10:29→20:35)
[2021-04-16] MEDS: Bumetanide 1 MG TABLET PO SCH ×2 (10:29→16:34)
[2021-04-16] MEDS: Insulin LISPRO 300 UNITS/3 ML VIAL SUBQ SCH ×4 (10:30→21:07)
[2021-04-16] MEDS: Lactulose Oral Soln 20 GM/30 ML UDC PO SCH ×4 (10:30→20:36)
[2021-04-16] MEDS: Insulin DETEMIR 100 UNIT/ML X5UNITS SUBQ SCH ×2 (10:34→21:09)
[2021-04-16 20:09] LABS: Hemoglobin 7.4 g/dL (12.9-16.9)
[2021-04-16] MEDS: allopurinoL 100 MG TABLET PO SCH (20:35)
[2021-04-17 01:47] LABS: Alanine Aminotransferase 29 Units/L (7-52); Albumin 3.2 g/dL (3.5-5.7); Albumin/Globulin Ratio 1.9 (1.1-2.2); Alkaline Phosphatase 167 Units/L (34-104); Aspartate Amino Transferase 35 Units/L (13-39); BUN/Creatinine Ratio 18 (6-26); Bilirubin,Total 3.7 mg/dL (0.3-1.0); Blood Urea Nitrogen 27 mg/dL (6-20); Calcium 8.9 mg/dL (8.6-10.3); Carbon Dioxide 31 mEq/L (23-29); Chloride 96 mEq/L (98-107); Globulin 1.7 g/dL (2.4-3.5); Glucose 261 mg/dL (70-105); Osmolality,Calculated 296 (280-300); Potassium 3.8 mEq/L (3.5-5.1); Sodium 136 mEq/L (136-145); Total Protein 4.9 g/dL (6.4-8.9); eGFR For African Americans > 60 (> 60); eGFR For Non-African Americans 50 (> 60)
[2021-04-17 05:48] LABS: Basophils % 0.8 %; Hemoglobin 6.8 g/dL (12.9-16.9)
[2021-04-17 05:50] LABS: Eosinophils % 3.1 %; Hematocrit 20.5 % (37.5-50.1); Immature Granulocytes % 6.1 % (0-4); Immature Platelets 3.2 % (1.1-6.1); Lymphocytes # 0.1 K/mcL (0.6-4.6); Lymphocytes % 10.7 %; Mean Corpuscular HGB Conc 33.2 g/dL (31.6-35.5); Mean Corpuscular Hemoglobin 29.8 pg (28.0-33.3); Mean Corpuscular Volume 89.9 fL (83.0-100.0); Mean Platelet Volume 9.2 fL (9.4-12.4); Monocytes # 0.3 K/mcL (0.0-1.3); Monocytes % 20.6 %; Neutrophils # 0.8 K/mcL (1.6-8.9); Nucleated Red Blood Cells 3.1 /100 WBC (0); Red Blood Count 2.28 M/mcL (4.19-5.50); Red Cell Distribution Width 17.3 % (11.5-14.5); Segmented Neutrophils % 58.7 %; White Blood Count 1.3 K/mcL (4.3-11.1)
[2021-04-17 06:15] LABS: Platelet Count 57 K/mcL (140-400)
[2021-04-17 06:41] LABS: Anisocytosis 1+ (Not Present); Hypochromasia Present (Not Present); Platelet Estimate Decreased (Normal); Polychromasia 1+ (Not Present)
[2021-04-17] MEDS: *HR* OxyCODONE Immed Rel 5 MG TABLET PO PRN ×2 (06:55→21:29)
[2021-04-17] MEDS: Insulin LISPRO 300 UNITS/3 ML VIAL SUBQ SCH ×4 (09:43→19:56)
[2021-04-17] MEDS: Insulin DETEMIR 100 UNIT/ML X5UNITS SUBQ SCH ×2 (10:29→21:32)
[2021-04-17] MEDS: Bumetanide 1 MG TABLET PO SCH ×2 (10:32→17:20)
[2021-04-17] MEDS: Gabapentin 300 MG CAPSULE PO SCH (10:32)
[2021-04-17] MEDS: Loratadine 10 MG TABLET PO SCH (10:32)
[2021-04-17] MEDS: Sucralfate 1 GM TABLET PO SCH ×3 (10:32→21:29)
[2021-04-17] MEDS: Ascorbic Acid 500 MG TABLET PO SCH (10:32)
[2021-04-17] MEDS: Lactulose Oral Soln 20 GM/30 ML UDC PO SCH ×4 (10:32→21:32)
[2021-04-17] MEDS ORDERED: Lactulose 200 GM, Sodium Chloride IRRigation 700 ML RC ONE (11:33)
[2021-04-17] MEDS: cefTRIAXone 2,000 MG in Water for inj. (sterile) 20 ML IVP SCH (15:11)
[2021-04-17] MEDS ORDERED: Ipratropium/Albuterol Neb 3 ML IH PRN (16:54)
[2021-04-17 20:57] LABS: Hematocrit 25.6 % (37.5-50.1)
[2021-04-17 20:59] LABS: Hemoglobin 8.5 g/dL (12.9-16.9)
[2021-04-17] MEDS: allopurinoL 100 MG TABLET PO SCH (21:29)
[2021-04-18] MEDS: Insulin LISPRO 300 UNITS/3 ML VIAL SUBQ SCH ×4 (00:25→19:16)
[2021-04-18 03:49] LABS: VBG HCO3 33 mEq/L (21-27); VBG PCO2 50 mmHg (41-51); VBG PH 7.43 pH Units (7.32-7.42); VBG PO2 258 mmHg (25-50)
[2021-04-18 03:49] LABS: Basophils % 1.4 %; Eosinophils # 0.1 K/mcL (0.0-0.6); Eosinophils % 5.6 %; Hematocrit 22.3 % (37.5-50.1); Hemoglobin 7.7 g/dL (12.9-16.9); Immature Platelets 2.6 % (1.1-6.1); Lymphocytes # 0.1 K/mcL (0.6-4.6); Lymphocytes % 9.9 %; Mean Corpuscular HGB Conc 34.5 g/dL (31.6-35.5); Mean Corpuscular Hemoglobin 30.1 pg (28.0-33.3); Mean Corpuscular Volume 87.1 fL (83.0-100.0); Mean Platelet Volume 9.2 fL (9.4-12.4); Monocytes # 0.3 K/mcL (0.0-1.3); Monocytes % 18.3 %; Neutrophils # 0.8 K/mcL (1.6-8.9); Nucleated Red Blood Cells 2.1 /100 WBC (0); Red Blood Count 2.56 M/mcL (4.19-5.50); Red Cell Distribution Width 17.4 % (11.5-14.5); Segmented Neutrophils % 57.8 %; White Blood Count 1.4 K/mcL (4.3-11.1)
[2021-04-18 03:52] LABS: INR 1.2; Platelet Count 66 K/mcL (140-400); Prothrombin Time 13.8 Seconds (9.4-12.1)
[2021-04-18 04:12] LABS: Albumin/Globulin Ratio 1.9 (1.1-2.2); Calcium 8.6 mg/dL (8.6-10.3); Globulin 1.6 g/dL (2.4-3.5); Magnesium 1.8 mg/dL (1.6-2.6); Phosphorous 4.2 mg/dL (2.7-4.5); Potassium 3.6 mEq/L (3.5-5.1); Total Protein 4.6 g/dL (6.4-8.9)
[2021-04-18 04:37] LABS: Platelet Estimate Decreased (Normal)
[2021-04-18 04:38] LABS: Polychromasia 1+ (Not Present)
[2021-04-18] MEDS: Lactulose Oral Soln 20 GM/30 ML UDC PO SCH ×4 (07:43→21:33)
[2021-04-18] MEDS: Ascorbic Acid 500 MG TABLET PO SCH (07:43)
[2021-04-18] MEDS: Sucralfate 1 GM TABLET PO SCH ×3 (07:44→21:33)
[2021-04-18] MEDS: Bumetanide 1 MG TABLET PO SCH ×2 (07:44→17:30)
[2021-04-18] MEDS: Loratadine 10 MG TABLET PO SCH (07:44)
[2021-04-18] MEDS: Insulin DETEMIR 100 UNIT/ML X5UNITS SUBQ SCH ×2 (07:44→21:34)
[2021-04-18 08:01] LABS: Estimated Average Glucose 128 mg/dl; Hemoglobin A1C 6.1 %
[2021-04-18] MEDS: cefTRIAXone 2,000 MG in Water for inj. (sterile) 20 ML IVP SCH (14:08)
[2021-04-18 16:39] LABS: Glucose,Peritoneal Fluid 131 mg/dL (No Ref Range); LDH,Peritoneal Fluid 101 Units/L (No Ref Range); Total Protein,Peritoneal Fluid < 2.0 g/dL
[2021-04-18 17:20] LABS: Appearance of Peritoneal Fl CLEAR (Clear)
[2021-04-18] MEDS: allopurinoL 100 MG TABLET PO SCH (21:34)
[2021-04-19 07:38] LABS: Eosinophils # 0.1 K/mcL (0.0-0.6); Hematocrit 24.1 % (37.5-50.1); Hemoglobin 8.1 g/dL (12.9-16.9); Immature Platelets 3.6 % (1.1-6.1); Lymphocytes # 0.1 K/mcL (0.6-4.6); Mean Corpuscular HGB Conc 33.6 g/dL (31.6-35.5); Mean Corpuscular Hemoglobin 29.3 pg (28.0-33.3); Mean Corpuscular Volume 87.3 fL (83.0-100.0); Mean Platelet Volume 9.8 fL (9.4-12.4); Monocytes # 0.2 K/mcL (0.0-1.3); Red Blood Count 2.76 M/mcL (4.19-5.50); Red Cell Distribution Width 17.3 % (11.5-14.5); White Blood Count 1.5 K/mcL (4.3-11.1)
[2021-04-19 07:54] LABS: Albumin 3.1 g/dL (3.5-5.7); Albumin/Globulin Ratio 1.8 (1.1-2.2); Bilirubin,Total 2.6 mg/dL (0.3-1.0); Calcium 8.1 mg/dL (8.6-10.3); Globulin 1.7 g/dL (2.4-3.5); Magnesium 1.7 mg/dL (1.6-2.6); Phosphorous 3.2 mg/dL (2.7-4.5); Potassium 3.6 mEq/L (3.5-5.1); Total Protein 4.8 g/dL (6.4-8.9)
[2021-04-19 07:56] LABS: Platelet Count 68 K/mcL (140-400)
[2021-04-19] MEDS: Ascorbic Acid 500 MG TABLET PO SCH (08:09)
[2021-04-19] MEDS: Lactulose Oral Soln 20 GM/30 ML UDC PO SCH ×2 (08:09→15:17)
[2021-04-19] MEDS: Loratadine 10 MG TABLET PO SCH (08:09)
[2021-04-19] MEDS: Sucralfate 1 GM TABLET PO SCH ×2 (08:09→15:18)
[2021-04-19] MEDS: Insulin LISPRO 300 UNITS/3 ML VIAL SUBQ SCH ×2 (08:09→12:21)
[2021-04-19] MEDS: Bumetanide 1 MG TABLET PO SCH (08:09)
[2021-04-19] MEDS: Insulin DETEMIR 100 UNIT/ML X5UNITS SUBQ SCH (08:20)
[2021-04-19 08:46] LABS: Neutrophils # 1.1 K/mcL (1.6-8.9)
[2021-04-19 08:50] LABS: Anisocytosis 1+ (Not Present); Platelet Estimate Decreased (Normal); Polychromasia 1+ (Not Present)
[2021-04-19 11:07] VITALS: BP 125/59; PULSE 104; TEMP 98.3; O2SAT 99
[2021-04-19] MEDS: cefTRIAXone 2,000 MG in Water for inj. (sterile) 20 ML IVP SCH (15:17)
[2021-04-20 22:14] LABS: Fluid Source for Albumin PERITONEAL FL
== END 2021-04-19 15:37 | disposition home health service (06) | DRG 812 ==
LOC: 3ANU 10:19 → EMEROOARM 10:19 → 3ANU 15:19 → SUATTDRO 04-15 15:08
PROVIDERS: ADMIT Pharmacist; ATTEND Internal Medicine

== ENCOUNTER 2021-07-22 23:12 | Observation (INO) ==
[2021-07-23 00:34] LABS: Basophils % 0.5 %; Hematocrit 28.4 % (37.5-50.1); Hemoglobin 9.2 g/dL (12.9-16.9); Immature Granulocytes % 1.3 % (0-4); Immature Platelets 2.5 % (1.1-6.1); Lymphocytes # 0.2 K/mcL (0.6-4.6); Mean Corpuscular HGB Conc 32.4 g/dL (31.6-35.5); Mean Corpuscular Hemoglobin 30.4 pg (28.0-33.3); Mean Corpuscular Volume 93.7 fL (83.0-100.0); Mean Platelet Volume 9.2 fL (9.4-12.4); Monocytes # 0.4 K/mcL (0.0-1.3); Monocytes % 9.5 %; Neutrophils # 3.3 K/mcL (1.6-8.9); Platelet Count 104 K/mcL (140-400); Red Blood Count 3.03 M/mcL (4.19-5.50); Red Cell Distribution Width 17.3 % (11.5-14.5); Segmented Neutrophils % 82.7 %
[2021-07-23 00:48] LABS: INR 1.1; Prothrombin Time 12.4 Seconds (9.4-12.1)
[2021-07-23 00:50] LABS: Bilirubin,Urine Negative (Negative); Blood,Urine Negative (Negative); Clarity,Urine Clear (Clear); Color,Urine Light-Yellow (Yellow); Glucose,Urine (UA) Normal (Normal); Ketones,Urine Negative (Negative); Leukocyte Esterase,Urine Negative (Negative); Nitrite,Urine Negative (Negative); Protein,Urine Negative (Neg-Trace); Urobilinogen,Urine Normal (Normal)
[2021-07-23 00:51] LABS: Activated Partial Thrombo Time 35.5 Seconds (26.0-36.0)
[2021-07-23 00:55] LABS: Alanine Aminotransferase 36 Units/L (7-52); Albumin 3.6 g/dL (3.5-5.7); Albumin/Globulin Ratio 1.5 (1.1-2.2); Alkaline Phosphatase 240 Units/L (34-104); Aspartate Amino Transferase 29 Units/L (13-39); BUN/Creatinine Ratio 19 (6-26); Bilirubin,Direct 0.4 mg/dL (0.0-0.2); Bilirubin,Indirect 1.9 mg/dL (0.0-1.0); Bilirubin,Total 2.3 mg/dL (0.3-1.0); Blood Urea Nitrogen 42 mg/dL (6-20); Calcium 10.5 mg/dL (8.6-10.3); Carbon Dioxide 34 mEq/L (23-29); Chloride 94 mEq/L (98-107); Ethanol < 10 mg/dL (Less than 10); Globulin 2.4 g/dL (2.4-3.5); Glucose 232 mg/dL (70-105); Osmolality,Calculated 302 (280-300); Sodium 137 mEq/L (136-145); Troponin I 0.03 ng/mL (< 0.04); eGFR For African Americans 38 (> 60); eGFR For Non-African Americans 31 (> 60)
[2021-07-23 00:59] LABS: Amphetamine Screen,Urine Negative ng/mL (Cutoff=1000); Barbiturate Screen,Urine Negative ng/mL (Cutoff=200); Benzodiazepines Screen,Urine Negative ng/mL (Cutoff=200); Cannabinoid Screen,Urine Negative ng/mL (Cutoff = 50); Cocaine Screen,Urine Negative ng/mL (Cutoff= 300); Opiate Screen,Urine Negative ng/mL (Cutoff=300); Phencyclidine Screen,Urine Negative ng/mL (Cutoff=25)
[2021-07-23] MEDS ORDERED: Lactulose Oral Soln 20 GM/30 ML UDC PO ONE (01:19)
[2021-07-23] MEDS ORDERED: Naloxone 0.4 MG/ML INJ IVP PRN (03:37)
[2021-07-23] MEDS ORDERED: Melatonin 3 MG TABLET PO PRN (03:37)
[2021-07-23] MEDS: Albumin 25% 25gram/100mL 25 GM/100 ML IV.SOLN IVPB SCH ×3 (06:43→22:01)
[2021-07-23] MEDS: cefTRIAXone 2,000 MG in Water for inj. (sterile) 20 ML IVP SCH (06:43)
[2021-07-23] MEDS: Lactulose Oral Soln 20 GM/30 ML UDC PO SCH ×3 (08:44→21:59)
[2021-07-23] MEDS ORDERED: Dextrose Gel 15 GM/37.5 ML TUBE PO PRN ×2 (13:27)
[2021-07-23] MEDS ORDERED: D5% in Water 1,000 ML IVC PRN (13:27)
[2021-07-23] MEDS ORDERED: *HR* Dextrose 50 % in Water (Syg) 50 ML SYRINGE IVP PRN (13:27)
[2021-07-23] MEDS: Insulin DETEMIR 100 UNIT/ML X5UNITS SUBQ SCH ×2 (14:20→22:55)
[2021-07-23] MEDS ORDERED: Ondansetron ODT 4 MG TAB.RAPDIS SL PRN (16:36)
[2021-07-23 18:14] LABS: RBC,Peritoneal Fluid 3000 RBC/mcL
[2021-07-23 19:09] LABS: Total Protein,Peritoneal Fluid 2.2 g/dL
[2021-07-23 19:10] LABS: Appearance of Peritoneal Fl CLEAR (Clear)
[2021-07-23] MEDS: Insulin LISPRO 300 UNITS/3 ML VIAL SUBQ SCH (19:26)
[2021-07-23 19:28] LABS: Basophils,Peritoneal Fluid 0 %; Eosinophils,Peritoneal Fluid 0 %
[2021-07-23] MEDS ORDERED: Insulin LISPRO 300 UNITS/3 ML VIAL SUBQ SCH (21:00)
[2021-07-23] MEDS ORDERED: allopurinoL 100 MG TABLET PO SCH (21:00)
[2021-07-23] MEDS: Sucralfate 1 GM TABLET PO SCH (22:55)
[2021-07-24 02:08] LABS: Hemoglobin 8.3 g/dL (12.9-16.9); Immature Granulocytes % 1.3 % (0-4); Red Cell Distribution Width 17.2 % (11.5-14.5)
[2021-07-24 02:10] LABS: Basophils % 0.5 %; Eosinophils # 0.1 K/mcL (0.0-0.6); Eosinophils % 2.3 %; Hematocrit 25.3 % (37.5-50.1); Immature Platelets 2.8 % (1.1-6.1); Lymphocytes # 0.3 K/mcL (0.6-4.6); Mean Corpuscular HGB Conc 32.8 g/dL (31.6-35.5); Mean Corpuscular Hemoglobin 30.6 pg (28.0-33.3); Mean Corpuscular Volume 93.4 fL (83.0-100.0); Mean Platelet Volume 9.6 fL (9.4-12.4); Monocytes # 0.4 K/mcL (0.0-1.3); Monocytes % 10.4 %; Platelet Count 97 K/mcL (140-400); Red Blood Count 2.71 M/mcL (4.19-5.50); Segmented Neutrophils % 77.5 %; White Blood Count 3.9 K/mcL (4.3-11.1)
[2021-07-24 02:18] LABS: INR 1.1; Prothrombin Time 12.3 Seconds (9.4-12.1)
[2021-07-24 02:27] LABS: Albumin 3.9 g/dL (3.5-5.7); Albumin/Globulin Ratio 2.2 (1.1-2.2); Bilirubin,Total 2.6 mg/dL (0.3-1.0); Calcium 9.4 mg/dL (8.6-10.3); Globulin 1.8 g/dL (2.4-3.5); Potassium 4.1 mEq/L (3.5-5.1); Total Protein 5.7 g/dL (6.4-8.9)
[2021-07-24] MEDS: Albumin 25% 25gram/100mL 25 GM/100 ML IV.SOLN IVPB SCH ×2 (03:58→12:52)
[2021-07-24] MEDS: cefTRIAXone 2,000 MG in Water for inj. (sterile) 20 ML IVP SCH (05:31)
[2021-07-24] MEDS ORDERED: *HR* OxyCODONE Immed Rel 5 MG TABLET PO PRN ×3 (08:24→09:09)
[2021-07-24] MEDS: Sucralfate 1 GM TABLET PO SCH (08:52)
[2021-07-24] MEDS: Lactulose Oral Soln 20 GM/30 ML UDC PO SCH (08:52)
[2021-07-24] MEDS: Insulin DETEMIR 100 UNIT/ML X5UNITS SUBQ SCH (08:53)
[2021-07-24] MEDS: Insulin LISPRO 300 UNITS/3 ML VIAL SUBQ SCH ×2 (08:53→12:52)
[2021-07-24 11:27] VITALS: BP 124/80; PULSE 71; TEMP 98.6; O2SAT 95
[2021-07-26 00:58] LABS: Fluid Source for Albumin ASCITES FLUID
== END 2021-07-24 12:33 | disposition home or self-care (01) ==
LOC: 3ANU 23:12 → EMEROOARM 23:12 → SUATTDRO 07-23 15:15 → 3ANU 07-23 17:14
PROVIDERS: ADMIT Student in an Organized Health Care Education/Training Program; ATTEND Internal Medicine

== ENCOUNTER 2021-09-29 16:03 | Inpatient (IN) ==
[2021-09-29 17:46] LABS: White Blood Count 5.5 K/mcL (4.3-11.1)
[2021-09-29 17:48] LABS: Hematocrit 24.8 % (37.5-50.1); Immature Platelets 2.5 % (1.1-6.1); Mean Corpuscular HGB Conc 32.3 g/dL (31.6-35.5); Mean Corpuscular Hemoglobin 29.7 pg (28.0-33.3); Mean Corpuscular Volume 92.2 fL (83.0-100.0); Mean Platelet Volume 9.4 fL (9.4-12.4); Red Blood Count 2.69 M/mcL (4.19-5.50); Red Cell Distribution Width 17.2 % (11.5-14.5)
[2021-09-29 18:05] LABS: Albumin 3.5 g/dL (3.5-5.7); Albumin/Globulin Ratio 1.7 (1.1-2.2); Bilirubin,Direct 0.4 mg/dL (0.0-0.2); Bilirubin,Indirect 1.7 mg/dL (0.0-1.0); Bilirubin,Total 2.1 mg/dL (0.3-1.0); Calcium 9.3 mg/dL (8.6-10.3); Globulin 2.1 g/dL (2.4-3.5); Potassium 4.2 mEq/L (3.5-5.1); Total Protein 5.6 g/dL (6.4-8.9)
[2021-09-29 18:10] LABS: INR 1.1; Prothrombin Time 12.1 Seconds (9.4-12.1)
[2021-09-29 18:12] LABS: Activated Partial Thrombo Time 32.7 Seconds (26.0-36.0)
[2021-09-29] MEDS ORDERED: Naloxone 0.4 MG/ML INJ IVP PRN (20:36)
[2021-09-29] MEDS ORDERED: Dextrose Gel 15 GM/37.5 ML TUBE PO PRN ×2 (20:47)
[2021-09-29] MEDS ORDERED: D5% in Water 1,000 ML IVC PRN (20:47)
[2021-09-29] MEDS ORDERED: *HR* Dextrose 50 % in Water (Syg) 50 ML SYRINGE IVP PRN (20:47)
[2021-09-29 20:51] LABS: Influenza A PCR Negative (Negative); Influenza B PCR Negative (Negative); Resp. Syncytial Virus PCR Negative (Negative)
[2021-09-29 20:53] LABS: SARS-CoV-2 by PCR (In House) Negative (Negative)
[2021-09-29 21:09] LABS: Bilirubin,Urine Negative (Negative); Blood,Urine Negative (Negative); Clarity,Urine Clear (Clear); Color,Urine Light-Yellow (Yellow); Glucose,Urine (UA) Normal (Normal); Ketones,Urine Negative (Negative); Leukocyte Esterase,Urine Negative (Negative); Nitrite,Urine Negative (Negative); Protein,Urine Trace mg/dL (Neg-Trace); Specific Gravity,Urine 1.015 (1.010-1.025); Urobilinogen,Urine Normal (Normal)
[2021-09-29] MEDS: Melatonin 3 MG TABLET PO PRN (23:22)
[2021-09-29] MEDS: Sucralfate 1 GM TABLET PO SCH (23:22)
[2021-09-29] MEDS: Lactulose Oral Soln 20 GM/30 ML UDC PO SCH (23:23)
[2021-09-29] MEDS: Insulin LISPRO 300 UNITS/3 ML VIAL SUBQ SCH (23:23)
[2021-09-29] MEDS: Insulin DETEMIR 100 UNIT/ML X5UNITS SUBQ SCH (23:23)
[2021-09-29] MEDS ORDERED: ALPRAZolam 1 MG TABLET PO PRN (23:39)
[2021-09-30 03:04] LABS: Hematocrit 21.2 % (37.5-50.1); Hemoglobin 6.9 g/dL (12.9-16.9); Mean Corpuscular HGB Conc 32.5 g/dL (31.6-35.5); Mean Corpuscular Hemoglobin 29.9 pg (28.0-33.3); Mean Corpuscular Volume 91.8 fL (83.0-100.0); Mean Platelet Volume 9.7 fL (9.4-12.4); Platelet Count 100 K/mcL (140-400); Red Blood Count 2.31 M/mcL (4.19-5.50); Red Cell Distribution Width 17.3 % (11.5-14.5); White Blood Count 5.1 K/mcL (4.3-11.1)
[2021-09-30 03:16] LABS: Albumin 3.2 g/dL (3.5-5.7); Albumin/Globulin Ratio 1.9 (1.1-2.2); Calcium 8.9 mg/dL (8.6-10.3); Globulin 1.7 g/dL (2.4-3.5); Magnesium 1.7 mg/dL (1.6-2.6); Phosphorous 2.4 mg/dL (2.7-4.5); Potassium 4.1 mEq/L (3.5-5.1); Total Protein 4.9 g/dL (6.4-8.9)
[2021-09-30] MEDS: Lactulose Oral Soln 20 GM/30 ML UDC PO SCH ×3 (10:06→20:43)
[2021-09-30] MEDS: Sucralfate 1 GM TABLET PO SCH ×2 (10:07→20:41)
[2021-09-30] MEDS: Insulin LISPRO 300 UNITS/3 ML VIAL SUBQ SCH ×4 (10:07→20:43)
[2021-09-30] MEDS: Insulin DETEMIR 100 UNIT/ML X5UNITS SUBQ SCH ×2 (10:09→20:43)
[2021-09-30] MEDS ORDERED: 0.9 % Sodium Chloride 250 ML ONE (11:02)
[2021-09-30 15:53] LABS: Hematocrit 24.1 % (37.5-50.1)
[2021-09-30] MEDS: Melatonin 3 MG TABLET PO PRN (20:41)
[2021-10-01 03:15] LABS: Hematocrit 24.8 % (37.5-50.1); Hemoglobin 7.6 g/dL (12.9-16.9); Immature Platelets 2.2 % (1.1-6.1); Mean Corpuscular HGB Conc 30.6 g/dL (31.6-35.5); Mean Corpuscular Hemoglobin 29.2 pg (28.0-33.3); Mean Corpuscular Volume 95.4 fL (83.0-100.0); Mean Platelet Volume 9.5 fL (9.4-12.4); Red Blood Count 2.6 M/mcL (4.19-5.50); White Blood Count 4.8 K/mcL (4.3-11.1)
[2021-10-01 03:57] LABS: Albumin 3.2 g/dL (3.5-5.7); Albumin/Globulin Ratio 1.9 (1.1-2.2); Bilirubin,Total 2.5 mg/dL (0.3-1.0); Calcium 8.5 mg/dL (8.6-10.3); Globulin 1.7 g/dL (2.4-3.5); Magnesium 1.9 mg/dL (1.6-2.6); Total Protein 4.9 g/dL (6.4-8.9)
[2021-10-01] MEDS ORDERED: Nitroglycerin 0.4 MG TAB.SUBL SL PRN (08:02)
[2021-10-01] MEDS ORDERED: Bumetanide 1 MG TABLET PO SCH (09:00)
[2021-10-01] MEDS: Lactulose Oral Soln 20 GM/30 ML UDC PO SCH ×4 (09:08→20:29)
[2021-10-01] MEDS: Gabapentin 300 MG CAPSULE PO SCH ×2 (09:12→20:30)
[2021-10-01] MEDS: Insulin DETEMIR 100 UNIT/ML X5UNITS SUBQ SCH ×2 (09:13→20:40)
[2021-10-01] MEDS: Sucralfate 1 GM TABLET PO SCH ×2 (09:13→20:30)
[2021-10-01] MEDS: Insulin LISPRO 300 UNITS/3 ML VIAL SUBQ SCH ×4 (09:13→20:47)
[2021-10-01] MEDS ORDERED: Ciprofloxacin HCL Soln 5 ML BOTTLE RIGHT EYE SCH (12:00)
[2021-10-01] MEDS ORDERED: Lactulose Oral Soln 20 GM/30 ML UDC PO SCH (13:00)
[2021-10-01] MEDS: Ciprofloxacin HCL Soln 5 ML BOTTLE BOTH EYES SCH ×4 (16:10→23:43)
[2021-10-01] MEDS: *HR* OxyCODONE Immed Rel 5 MG TABLET PO PRN ×2 (18:57→23:46)
[2021-10-01] MEDS: Melatonin 3 MG TABLET PO PRN (20:34)
[2021-10-01] MEDS ORDERED: allopurinoL 100 MG TABLET PO SCH (21:00)
[2021-10-02] MEDS: Ciprofloxacin HCL Soln 5 ML BOTTLE BOTH EYES SCH ×3 (03:41→11:03)
[2021-10-02] MEDS: Lactulose Oral Soln 20 GM/30 ML UDC PO SCH ×2 (08:33→12:39)
[2021-10-02] MEDS: Insulin LISPRO 300 UNITS/3 ML VIAL SUBQ SCH ×2 (08:36→12:40)
[2021-10-02] MEDS: Sucralfate 1 GM TABLET PO SCH (08:37)
[2021-10-02] MEDS: Gabapentin 300 MG CAPSULE PO SCH (08:39)
[2021-10-02 08:51] LABS: Hematocrit 25.9 % (37.5-50.1); Hemoglobin 8.5 g/dL (12.9-16.9); Mean Corpuscular HGB Conc 32.8 g/dL (31.6-35.5); Mean Corpuscular Hemoglobin 29.8 pg (28.0-33.3); Mean Corpuscular Volume 90.9 fL (83.0-100.0); Mean Platelet Volume 9.7 fL (9.4-12.4); Platelet Count 105 K/mcL (140-400); Red Blood Count 2.85 M/mcL (4.19-5.50); Red Cell Distribution Width 16.9 % (11.5-14.5); White Blood Count 4.9 K/mcL (4.3-11.1)
[2021-10-02] MEDS: Insulin DETEMIR 100 UNIT/ML X5UNITS SUBQ SCH (08:52)
[2021-10-02] MEDS ORDERED: Cholecalciferol (D-3) 1,000 UNIT (25MCG) TABLET PO SCH (09:00)
[2021-10-02 09:11] LABS: Calcium 8.7 mg/dL (8.6-10.3); Potassium 3.5 mEq/L (3.5-5.1)
[2021-10-02] MEDS: *HR* OxyCODONE Immed Rel 5 MG TABLET PO PRN (11:03)
[2021-10-02 11:33] VITALS: BP 114/52; PULSE 85; TEMP 97.9; O2SAT 99
== END 2021-10-02 13:06 | disposition home or self-care (01) | DRG 442 ==
LOC: EMEROOARM 16:03 → 4WAOSI 16:03 → SUATTDRO 20:56 → 4WAOSI 21:57 → SUATTDRO 09-30 16:28
PROVIDERS: ADMIT Student in an Organized Health Care Education/Training Program; ATTEND Internal Medicine

== ENCOUNTER 2021-11-13 11:41 | Observation (INO) ==
[2021-11-13 13:43] LABS: Hematocrit 22.8 % (37.5-50.1); Hemoglobin 7.2 g/dL (12.9-16.9); Mean Corpuscular HGB Conc 31.6 g/dL (31.6-35.5); Mean Corpuscular Hemoglobin 31.2 pg (28.0-33.3); Mean Corpuscular Volume 98.7 fL (83.0-100.0); Mean Platelet Volume 9.5 fL (9.4-12.4); Platelet Count 102 K/mcL (140-400); Red Blood Count 2.31 M/mcL (4.19-5.50); Red Cell Distribution Width 19.8 % (11.5-14.5); White Blood Count 3.9 K/mcL (4.3-11.1)
[2021-11-13 13:56] LABS: BUN/Creatinine Ratio 17 (6-26); Blood Urea Nitrogen 37 mg/dL (6-20); Carbon Dioxide 34 mEq/L (23-29); Chloride 99 mEq/L (98-107); Potassium 4.6 mEq/L (3.5-5.1); Sodium 138 mEq/L (136-145); eGFR For African Americans 38 (> 60); eGFR For Non-African Americans 32 (> 60)
[2021-11-13 13:57] LABS: Alanine Aminotransferase 17 Units/L (7-52); Albumin 3.9 g/dL (3.5-5.7); Albumin/Globulin Ratio 1.9 (1.1-2.2); Alkaline Phosphatase 141 Units/L (34-104); Aspartate Amino Transferase 25 Units/L (13-39); Bilirubin,Direct 0.3 mg/dL (0.0-0.2); Bilirubin,Indirect 1.8 mg/dL (0.0-1.0); Bilirubin,Total 2.1 mg/dL (0.3-1.0); Calcium 11.1 mg/dL (8.6-10.3); Ethanol < 10 mg/dL (Less than 10); Globulin 2.1 g/dL (2.4-3.5); Glucose 176 mg/dL (70-105); Osmolality,Calculated 299 (280-300)
[2021-11-13 14:09] LABS: Bilirubin,Urine Negative (Negative); Blood,Urine Negative (Negative); Clarity,Urine Clear (Clear); Color,Urine Light-Yellow (Yellow); Glucose,Urine (UA) Normal (Normal); Ketones,Urine Negative (Negative); Leukocyte Esterase,Urine Negative (Negative); Nitrite,Urine Negative (Negative); PH,Urine 5.5 pH Units (5.0-8.0); Protein,Urine Negative (Neg-Trace); Urobilinogen,Urine Normal (Normal)
[2021-11-13 14:11] LABS: Eosinophils # 0.1 K/mcL (0.0-0.6); Lymphocytes # 0.5 K/mcL (0.6-4.6); Monocytes # 0.2 K/mcL (0.0-1.3); Neutrophils # 3.1 K/mcL (1.6-8.9); Platelet Estimate Slight Decrease (Normal)
[2021-11-13 14:43] LABS: Amphetamine Screen,Urine Negative ng/mL (Cutoff=1000); Barbiturate Screen,Urine Negative ng/mL (Cutoff=200); Benzodiazepines Screen,Urine Negative ng/mL (Cutoff=200); Cannabinoid Screen,Urine Negative ng/mL (Cutoff = 50); Cocaine Screen,Urine Negative ng/mL (Cutoff= 300); Opiate Screen,Urine Negative ng/mL (Cutoff=300); Phencyclidine Screen,Urine Negative ng/mL (Cutoff=25)
[2021-11-13 15:07] LABS: Troponin I 0.05 ng/mL (< 0.04)
[2021-11-13] MEDS ORDERED: *HR* HYDROcodone/Acet 5/325 mg TABLET PO PRN (15:43)
[2021-11-13] MEDS ORDERED: Ondansetron 4 MG/2 ML VIAL IVP PRN (15:43)
[2021-11-13] MEDS ORDERED: cefTRIAXone 1,000 MG in Water for inj. (sterile) 10 ML IVP SCH (16:00)
[2021-11-13] MEDS ORDERED: Lactulose 200 GM, Sodium Chloride IRRigation 700 ML RC PRN (16:27)
[2021-11-13] MEDS: Bumetanide 1 MG TABLET PO SCH (17:21)
[2021-11-13] MEDS: Lactulose Oral Soln 20 GM/30 ML UDC PO SCH ×2 (17:21→20:15)
[2021-11-13] MEDS ORDERED: Albumin Human 5% 12.5 GM/250 ML IV.SOLN IVPB ONE (17:36)
[2021-11-13] MEDS ORDERED: 0.9 % Sodium Chloride 500 ML IVC ONE (17:37)
[2021-11-13] MEDS ORDERED: Lactulose Oral Soln 20 GM/30 ML UDC PO SCH (21:00)
[2021-11-14 03:34] LABS: Basophils % 0.4 %; Hemoglobin 6.2 g/dL (12.9-16.9)
[2021-11-14 03:36] LABS: Eosinophils # 0.1 K/mcL (0.0-0.6); Eosinophils % 3.5 %; Hematocrit 19.9 % (37.5-50.1); Immature Granulocytes % 3.1 % (0-4); Immature Platelets 1.8 % (1.1-6.1); Lymphocytes # 0.2 K/mcL (0.6-4.6); Lymphocytes % 8.2 %; Mean Corpuscular HGB Conc 31.2 g/dL (31.6-35.5); Mean Corpuscular Hemoglobin 30.8 pg (28.0-33.3); Mean Platelet Volume 9.8 fL (9.4-12.4); Monocytes # 0.3 K/mcL (0.0-1.3); Monocytes % 12.1 %; Neutrophils # 1.9 K/mcL (1.6-8.9); Nucleated Red Blood Cells 0.8 /100 WBC (0); Red Blood Count 2.01 M/mcL (4.19-5.50); Red Cell Distribution Width 19.4 % (11.5-14.5); Segmented Neutrophils % 72.7 %; White Blood Count 2.6 K/mcL (4.3-11.1)
[2021-11-14 03:45] LABS: Platelet Count 96 K/mcL (140-400)
[2021-11-14 03:46] LABS: Calcium 9.8 mg/dL (8.6-10.3); Potassium 3.8 mEq/L (3.5-5.1)
[2021-11-14 04:27] LABS: INR 1.2
[2021-11-14] MEDS ORDERED: 0.9 % Sodium Chloride 250 ML IVC SCH (08:00)
[2021-11-14] MEDS ORDERED: cefTRIAXone 1,000 MG in 0.9 % Sodium Chloride Mini Bag 100 ML IVP SCH (09:00)
[2021-11-14] MEDS: Lactulose Oral Soln 20 GM/30 ML UDC PO SCH ×3 (11:13→20:47)
[2021-11-14] MEDS: Bumetanide 1 MG TABLET PO SCH (11:13)
[2021-11-14] MEDS ORDERED: 0.9 % Sodium Chloride 250 ML ONE (11:15)
[2021-11-14] MEDS ORDERED: Dextrose Gel 15 GM/37.5 ML TUBE PO PRN ×2 (11:43)
[2021-11-14] MEDS ORDERED: D5% in Water 1,000 ML IVC PRN (11:43)
[2021-11-14] MEDS ORDERED: *HR* Dextrose 50 % in Water (Syg) 50 ML SYRINGE IVP PRN (11:43)
[2021-11-14] MEDS: Insulin LISPRO 300 UNITS/3 ML VIAL SUBQ SCH ×2 (12:05→16:49)
[2021-11-14] MEDS ORDERED: ALPRAZolam 1 MG TABLET PO PRN (17:22)
[2021-11-14 17:31] LABS: Hematocrit 23.5 % (37.5-50.1); Hemoglobin 7.7 g/dL (12.9-16.9)
[2021-11-14] MEDS: Sucralfate 1 GM TABLET PO SCH (20:47)
[2021-11-14] MEDS ORDERED: Insulin LISPRO 300 UNITS/3 ML VIAL SUBQ SCH (21:00)
[2021-11-15 01:39] LABS: Albumin 3.3 g/dL (3.5-5.7); Albumin/Globulin Ratio 2.2 (1.1-2.2); Bilirubin,Total 2.1 mg/dL (0.3-1.0); Calcium 9.2 mg/dL (8.6-10.3); Globulin 1.5 g/dL (2.4-3.5); Potassium 3.5 mEq/L (3.5-5.1); Total Protein 4.8 g/dL (6.4-8.9)
[2021-11-15 03:35] LABS: Sodium, Urine 54.7 mEq/L
[2021-11-15 04:01] LABS: Bilirubin,Urine Negative (Negative); Blood,Urine Negative (Negative); Clarity,Urine Clear (Clear); Color,Urine Light-Yellow (Yellow); Glucose,Urine (UA) 70 mg/dL (Normal); Ketones,Urine Negative (Negative); Leukocyte Esterase,Urine Negative (Negative); Nitrite,Urine Negative (Negative); Protein,Urine Negative (Neg-Trace); RBC,Urine 0-3 per hpf (0-3); Specific Gravity,Urine 1.012 (1.010-1.025); Squamous Epithelial Cell,Urine Few per hpf (None-Few); Urobilinogen,Urine Normal (Normal); WBC,Urine 0-3 per hpf (0-3)
[2021-11-15] MEDS: Insulin LISPRO 300 UNITS/3 ML VIAL SUBQ SCH ×2 (07:09→11:15)
[2021-11-15] MEDS: Sucralfate 1 GM TABLET PO SCH (07:49)
[2021-11-15] MEDS: Lactulose Oral Soln 20 GM/30 ML UDC PO SCH (07:50)
[2021-11-15] MEDS: Bumetanide 1 MG TABLET PO SCH (07:50)
[2021-11-15 10:21] LABS: Hematocrit 25.3 % (37.5-50.1); Hemoglobin 8.4 g/dL (12.9-16.9)
[2021-11-15 12:35] VITALS: BP 129/64; PULSE 98; TEMP 98; O2SAT 99
[2021-11-15] MEDS ORDERED: Ergocalciferol (VIT D2) 50,000 UNIT (1.25MG) CAP PO SCH (17:22)
== END 2021-11-15 13:30 | disposition home or self-care (01) ==
LOC: EMEROOARM 11:41 → 2ANU 11:41 → SUATTDRO 16:18 → 2ANU 16:47
PROVIDERS: ADMIT Internal Medicine; ATTEND Internal Medicine

== ENCOUNTER 2022-01-28 13:36 | Observation (INO) ==
[2022-01-28] MEDS ORDERED: 0.9 % Sodium Chloride 250 ML ONE (14:49)
[2022-01-28 15:08] LABS: Prothrombin Time 11.6 Seconds (9.4-12.1)
[2022-01-28 15:10] LABS: Activated Partial Thrombo Time 27.8 Seconds (26.0-36.0)
[2022-01-28 15:15] LABS: Mean Corpuscular HGB Conc 32.9 g/dL (31.6-35.5); Monocytes % 6.7 %; Red Cell Distribution Width 17.9 % (11.5-14.5)
[2022-01-28 15:16] LABS: Basophils % 0.2 %
[2022-01-28 15:17] LABS: Eosinophils # 0.1 K/mcL (0.0-0.6); Eosinophils % 2.1 %; Hematocrit 16.4 % (37.5-50.1); Immature Granulocytes % 4.8 % (0-4); Immature Platelets 2.8 % (1.1-6.1); Lymphocytes # 0.3 K/mcL (0.6-4.6); Lymphocytes % 6.4 %; Mean Corpuscular Hemoglobin 31.6 pg (28.0-33.3); Mean Corpuscular Volume 95.9 fL (83.0-100.0); Mean Platelet Volume 9.5 fL (9.4-12.4); Monocytes # 0.3 K/mcL (0.0-1.3); Neutrophils # 3.5 K/mcL (1.6-8.9); Nucleated Red Blood Cells 0.7 /100 WBC (0); Red Blood Count 1.71 M/mcL (4.19-5.50); Segmented Neutrophils % 79.8 %; White Blood Count 4.4 K/mcL (4.3-11.1)
[2022-01-28 15:23] LABS: Platelet Count 69 K/mcL (140-400)
[2022-01-28 15:26] LABS: Hemoglobin 5.4 g/dL (12.9-16.9)
[2022-01-28 15:32] LABS: Albumin 3.6 g/dL (3.5-5.7); Albumin/Globulin Ratio 2.4 (1.1-2.2); Bilirubin,Direct 0.3 mg/dL (0.0-0.2); Bilirubin,Indirect 1.4 mg/dL (0.0-1.0); Bilirubin,Total 1.7 mg/dL (0.3-1.0); Calcium 8.4 mg/dL (8.6-10.3); Globulin 1.5 g/dL (2.4-3.5); Potassium 4.2 mEq/L (3.5-5.1); Total Protein 5.1 g/dL (6.4-8.9)
[2022-01-28] MEDS ORDERED: Pantoprazole 40 MG VIAL IVP STA (15:53)
[2022-01-28] MEDS ORDERED: Dextrose 4 GM Chewable Tablets PO PRN ×2 (16:40)
[2022-01-28] MEDS ORDERED: D5% in Water 1,000 ML IVC PRN (16:40)
[2022-01-28] MEDS ORDERED: *HR* Dextrose 50 % in Water (Syg) 50 ML SYRINGE IVP PRN (16:40)
[2022-01-28] MEDS ORDERED: Naloxone 0.4 MG/ML INJ IVP PRN (16:40)
[2022-01-28] MEDS ORDERED: Ondansetron 4 MG/2 ML VIAL IVP PRN (17:19)
[2022-01-28] MEDS ORDERED: *HR* LORazepam 0.5 MG TABLET PO PRN (17:20)
[2022-01-28] MEDS ORDERED: *HR* LORazepam 0.5 MG TABLET SL PRN (17:26)
[2022-01-28 18:11] LABS: Hemoglobin 6.4 g/dL (12.9-16.9); Mean Corpuscular Volume 94.6 fL (83.0-100.0)
[2022-01-28 18:13] LABS: Hematocrit 19.2 % (37.5-50.1); Immature Platelets 3.8 % (1.1-6.1); Mean Corpuscular HGB Conc 33.3 g/dL (31.6-35.5); Mean Corpuscular Hemoglobin 31.5 pg (28.0-33.3); Mean Platelet Volume 10.2 fL (9.4-12.4); Red Blood Count 2.03 M/mcL (4.19-5.50); Red Cell Distribution Width 17.7 % (11.5-14.5); White Blood Count 5.4 K/mcL (4.3-11.1)
[2022-01-28] MEDS: Insulin LISPRO 300 UNITS/3 ML VIAL SUBQ SCH (18:17)
[2022-01-28] MEDS: cefTRIAXone 1,000 MG in 0.9 % Sodium Chloride 10 ML IVP SCH (18:25)
[2022-01-28] MEDS ORDERED: 0.9 % Sodium Chloride 500 ML ONE (19:44)
[2022-01-28] MEDS: Lactulose Oral Soln 20 GM/30 ML UDC PO SCH (20:15)
[2022-01-28] MEDS ORDERED: Insulin DETEMIR 100 UNIT/ML X5UNITS SUBQ SCH (21:00)
[2022-01-28 21:36] LABS: Protein/Creatinine Ratio,Urine 0.44 mg/mg (0.00-0.20); Sodium, Urine 12.9 mEq/L
[2022-01-28 23:47] LABS: Hematocrit 19.7 % (37.5-50.1); Hemoglobin 6.6 g/dL (12.9-16.9)
[2022-01-29] MEDS: Insulin LISPRO 300 UNITS/3 ML VIAL SUBQ SCH ×4 (01:50→18:20)
[2022-01-29] MEDS: Pantoprazole 40 MG VIAL IVP SCH ×2 (05:30→18:20)
[2022-01-29 05:43] LABS: Basophils % 0.4 %; Hemoglobin 6.8 g/dL (12.9-16.9); Mean Corpuscular Volume 94.6 fL (83.0-100.0); Monocytes % 7.4 %; Nucleated Red Blood Cells 0.7 /100 WBC (0)
[2022-01-29 05:45] LABS: Eosinophils # 0.1 K/mcL (0.0-0.6); Hematocrit 21.2 % (37.5-50.1); Immature Granulocytes % 5.6 % (0-4); Immature Platelets 2.9 % (1.1-6.1); Lymphocytes # 0.4 K/mcL (0.6-4.6); Mean Corpuscular HGB Conc 32.1 g/dL (31.6-35.5); Mean Corpuscular Hemoglobin 30.4 pg (28.0-33.3); Mean Platelet Volume 9.7 fL (9.4-12.4); Monocytes # 0.3 K/mcL (0.0-1.3); Red Blood Count 2.24 M/mcL (4.19-5.50); Red Cell Distribution Width 17.8 % (11.5-14.5); Segmented Neutrophils % 76.6 %; White Blood Count 4.5 K/mcL (4.3-11.1)
[2022-01-29 05:46] LABS: Neutrophils # 3.5 K/mcL (1.6-8.9); Platelet Count 59 K/mcL (140-400)
[2022-01-29 06:02] LABS: Albumin 3.5 g/dL (3.5-5.7); Albumin/Globulin Ratio 2.9 (1.1-2.2); Bilirubin,Total 3.1 mg/dL (0.3-1.0); Calcium 8.6 mg/dL (8.6-10.3); Globulin 1.2 g/dL (2.4-3.5); Magnesium 2.1 mg/dL (1.6-2.6); Phosphorous 2.5 mg/dL (2.7-4.5); Total Protein 4.7 g/dL (6.4-8.9)
[2022-01-29] MEDS ORDERED: Nitroglycerin 0.4 MG TAB.SUBL SL PRN (07:36)
[2022-01-29] MEDS ORDERED: 0.9 % Sodium Chloride 250 ML ONE (09:34)
[2022-01-29] MEDS: Lactulose Oral Soln 20 GM/30 ML UDC PO SCH ×3 (09:54→20:02)
[2022-01-29] MEDS ORDERED: Acetaminophen 325 MG TABLET PO PRN (15:22)
[2022-01-29] MEDS: cefTRIAXone 1,000 MG in 0.9 % Sodium Chloride 10 ML IVP SCH (15:41)
[2022-01-29 17:28] LABS: Hematocrit 24.2 % (37.5-50.1); Hemoglobin 7.9 g/dL (12.9-16.9)
[2022-01-29] MEDS: Bumetanide 1 MG TABLET PO SCH (18:23)
[2022-01-29] MEDS: Gabapentin 400 MG CAPSULE PO SCH (20:02)
[2022-01-29] MEDS: Insulin DETEMIR 100 UNIT/ML X5UNITS SUBQ SCH (20:02)
[2022-01-29] MEDS ORDERED: allopurinoL 100 MG TABLET PO SCH (21:00)
[2022-01-30] MEDS: Insulin LISPRO 300 UNITS/3 ML VIAL SUBQ SCH ×3 (00:36→12:50)
[2022-01-30 04:06] LABS: Hematocrit 22.3 % (37.5-50.1); Hemoglobin 7.5 g/dL (12.9-16.9); Mean Corpuscular HGB Conc 33.6 g/dL (31.6-35.5); Mean Corpuscular Hemoglobin 30.6 pg (28.0-33.3); Mean Platelet Volume 9.5 fL (9.4-12.4); Red Blood Count 2.45 M/mcL (4.19-5.50); Red Cell Distribution Width 18.6 % (11.5-14.5); White Blood Count 4.9 K/mcL (4.3-11.1)
[2022-01-30 04:08] LABS: Platelet Count 56 K/mcL (140-400)
[2022-01-30 04:27] LABS: Calcium 8.2 mg/dL (8.6-10.3); Potassium 3.7 mEq/L (3.5-5.1)
[2022-01-30 04:48] LABS: Activated Partial Thrombo Time 29.3 Seconds (26.0-36.0); INR 1.1
[2022-01-30] MEDS: Pantoprazole 40 MG VIAL IVP SCH (05:39)
[2022-01-30] MEDS: Bumetanide 1 MG TABLET PO SCH (09:49)
[2022-01-30] MEDS: Gabapentin 400 MG CAPSULE PO SCH (09:50)
[2022-01-30] MEDS: Lactulose Oral Soln 20 GM/30 ML UDC PO SCH ×2 (09:50→09:59)
[2022-01-30] MEDS: Insulin DETEMIR 100 UNIT/ML X5UNITS SUBQ SCH (09:53)
[2022-01-30] MEDS ORDERED: Lidocaine -MPF 2% 2 ML VIAL ONE (12:24)
[2022-01-30] MEDS ORDERED: *HR* Propofol 200 MG/20 ML VIAL IVP ONE (12:25)
[2022-01-30 15:15] VITALS: BP 119/62; PULSE 92; TEMP 98.5; O2SAT 98
== END 2022-01-30 16:48 | disposition home or self-care (01) ==
LOC: EMEROOARM 13:36 → 3ANU 13:36 → SUATTDRO 16:37 → 3ANU 17:18
PROVIDERS: ADMIT Internal Medicine; ATTEND Family Medicine

== ENCOUNTER 2022-02-27 09:31 | Inpatient (IN) ==
[2022-02-27] MEDS ORDERED: 0.9 % Sodium Chloride 1,000 ML IVC ONE (09:42)
[2022-02-27] MEDS ORDERED: Isovue-370 500 ML BOTTLE IVP ONE (09:42)
[2022-02-27] MEDS ORDERED: Ondansetron 4 MG/2 ML VIAL ONE (09:51)
[2022-02-27] MEDS ORDERED: Ondansetron 4 MG/2 ML VIAL IVP ONE (09:54)
[2022-02-27 09:57] LABS: Bilirubin,Urine Negative (Negative); Blood,Urine Negative (Negative); Clarity,Urine Clear (Clear); Color,Urine Light-Yellow (Yellow); Glucose,Urine (UA) Normal (Normal); Hemoglobin 7.6 g/dL (12.9-16.9); Ketones,Urine Negative (Negative); Leukocyte Esterase,Urine Negative (Negative); Nitrite,Urine Negative (Negative); Protein,Urine Trace mg/dL (Neg-Trace); Specific Gravity,Urine 1.016 (1.010-1.025); Urobilinogen,Urine Normal (Normal)
[2022-02-27 09:59] LABS: Hematocrit 22.3 % (37.5-50.1); Immature Platelets 2.6 % (1.1-6.1); Mean Corpuscular HGB Conc 34.1 g/dL (31.6-35.5); Mean Corpuscular Hemoglobin 31.5 pg (28.0-33.3); Mean Corpuscular Volume 92.5 fL (83.0-100.0); Mean Platelet Volume 9.8 fL (9.4-12.4); Red Blood Count 2.41 M/mcL (4.19-5.50); Red Cell Distribution Width 18.7 % (11.5-14.5); White Blood Count 5.8 K/mcL (4.3-11.1)
[2022-02-27 10:05] LABS: INR 1.1
[2022-02-27 10:08] LABS: Activated Partial Thrombo Time 24.6 Seconds (26.0-36.0)
[2022-02-27 10:19] LABS: Calcium 8.5 mg/dL (8.6-10.3); Potassium 4.3 mEq/L (3.5-5.1); Troponin I 0.03 ng/mL (< 0.04)
[2022-02-27] MEDS ORDERED: Naloxone 0.4 MG/ML INJ IVP PRN (11:41)
[2022-02-27] MEDS ORDERED: Lactulose 200 GM, Sodium Chloride IRRigation 700 ML RC ONE (11:41)
[2022-02-27 11:49] LABS: Albumin 3.6 g/dL (3.5-5.7); Albumin/Globulin Ratio 2.8 (1.1-2.2); Bilirubin,Direct 0.3 mg/dL (0.0-0.2); Bilirubin,Indirect 1.7 mg/dL (0.0-1.0); Globulin 1.3 g/dL (2.4-3.5); Total Protein 4.9 g/dL (6.4-8.9)
[2022-02-27] MEDS ORDERED: *HR* Dextrose 50 % in Water (Syg) 50 ML SYRINGE IVP PRN (14:13)
[2022-02-27] MEDS ORDERED: D5% in Water 1,000 ML IVC PRN (14:13)
[2022-02-27] MEDS ORDERED: Dextrose Gel 15 GM/37.5 ML TUBE PO PRN ×2 (14:13)
[2022-02-27 14:31] LABS: Influenza A PCR Negative (Negative); Influenza B PCR Negative (Negative); Resp. Syncytial Virus PCR Negative (Negative); SARS-CoV-2 by PCR (In House) Negative (Negative)
[2022-02-27] MEDS: Insulin LISPRO 300 UNITS/3 ML VIAL SUBQ SCH ×2 (15:31→18:03)
[2022-02-27] MEDS: 0.9 % Sodium Chloride 1,000 ML IVC SCH (16:33)
[2022-02-28 01:02] LABS: Hemoglobin 6.8 g/dL (12.9-16.9)
[2022-02-28 01:03] LABS: Eosinophils # 0.1 K/mcL (0.0-0.6); Hematocrit 20.8 % (37.5-50.1); Immature Platelets 1.9 % (1.1-6.1); Lymphocytes # 0.3 K/mcL (0.6-4.6); Mean Corpuscular HGB Conc 32.7 g/dL (31.6-35.5); Mean Corpuscular Hemoglobin 30.5 pg (28.0-33.3); Mean Corpuscular Volume 93.3 fL (83.0-100.0); Mean Platelet Volume 8.9 fL (9.4-12.4); Red Blood Count 2.23 M/mcL (4.19-5.50); Red Cell Distribution Width 18.8 % (11.5-14.5); White Blood Count 3.5 K/mcL (4.3-11.1)
[2022-02-28 01:05] LABS: Platelet Count 65 K/mcL (140-400)
[2022-02-28 01:20] LABS: Calcium 8.5 mg/dL (8.6-10.3); Magnesium 2.1 mg/dL (1.6-2.6); Phosphorous 3.4 mg/dL (2.7-4.5); Potassium 4.2 mEq/L (3.5-5.1)
[2022-02-28 01:48] LABS: Monocytes # 0.5 K/mcL (0.0-1.3); Neutrophils # 2.7 K/mcL (1.6-8.9); Platelet Estimate Decreased (Normal)
[2022-02-28] MEDS: Lactulose Oral Soln 20 GM/30 ML UDC PO SCH ×4 (05:40→20:29)
[2022-02-28] MEDS: Insulin LISPRO 300 UNITS/3 ML VIAL SUBQ SCH ×3 (07:35→17:07)
[2022-02-28] MEDS: 0.9 % Sodium Chloride 1,000 ML IVC SCH (09:59)
[2022-02-28] MEDS ORDERED: ALPRAZolam 1 MG TABLET PO PRN (13:31)
[2022-02-28] MEDS ORDERED: *HR* OxyCODONE Immed Rel 5 MG TABLET PO PRN (13:31)
[2022-02-28] MEDS: Sucralfate 1 GM TABLET PO SCH (20:28)
[2022-02-28] MEDS ORDERED: allopurinoL 100 MG TABLET PO SCH (21:00)
[2022-02-28] MEDS ORDERED: Insulin LISPRO 300 UNITS/3 ML VIAL SUBQ SCH (21:00)
[2022-03-01] MEDS: 0.9 % Sodium Chloride 1,000 ML IVC SCH (01:53)
[2022-03-01 07:28] VITALS: TEMP 98.3; O2SAT 100
[2022-03-01] MEDS: Lactulose Oral Soln 20 GM/30 ML UDC PO SCH (08:17)
[2022-03-01] MEDS: Sucralfate 1 GM TABLET PO SCH (08:17)
[2022-03-01] MEDS: Insulin LISPRO 300 UNITS/3 ML VIAL SUBQ SCH (08:18)
[2022-03-01 08:38] LABS: Hematocrit 24.9 % (37.5-50.1); Hemoglobin 8.4 g/dL (12.9-16.9); Mean Corpuscular HGB Conc 33.7 g/dL (31.6-35.5); Mean Corpuscular Volume 91.9 fL (83.0-100.0); Mean Platelet Volume 9.5 fL (9.4-12.4); Red Blood Count 2.71 M/mcL (4.19-5.50); Red Cell Distribution Width 17.6 % (11.5-14.5); White Blood Count 4.6 K/mcL (4.3-11.1)
[2022-03-01 08:55] LABS: Calcium 8.2 mg/dL (8.6-10.3)
[2022-03-01] MEDS ORDERED: Ascorbic Acid 500 MG TABLET PO SCH (09:00)
[2022-03-01] MEDS ORDERED: Loratadine 10 MG TABLET PO SCH (09:00)
[2022-03-01 10:31] VITALS: BP 120/47; PULSE 82
[2022-03-01] MEDS ORDERED: Lactulose Oral Soln 20 GM/30 ML UDC PO SCH (13:00)
== END 2022-03-01 13:30 | disposition home or self-care (01) | DRG 441 ==
LOC: EMEROOARM 09:31 → 3NENU 09:31 → SUATTDRO 14:19 → 3NENU 14:30
PROVIDERS: ADMIT Internal Medicine; ATTEND Family Medicine

== ENCOUNTER 2022-03-07 12:23 | Inpatient (IN) ==
[2022-03-07] MEDS ORDERED: Ondansetron 4 MG/2 ML VIAL IVP PRN (13:12)
[2022-03-07] MEDS ORDERED: Naloxone 0.4 MG/ML INJ IVP PRN (13:12)
[2022-03-07] MEDS ORDERED: 0.9 % Sodium Chloride 250 ML IVC SCH (14:30)
[2022-03-07] MEDS: Lactulose Oral Soln 20 GM/30 ML UDC PO SCH ×2 (15:05→20:21)
[2022-03-07] MEDS ORDERED: Dextrose Gel 15 GM/37.5 ML TUBE PO PRN ×2 (15:50)
[2022-03-07] MEDS ORDERED: *HR* Dextrose 50 % in Water (Syg) 50 ML SYRINGE IVP PRN (15:50)
[2022-03-07] MEDS ORDERED: D5% in Water 1,000 ML IVC PRN (15:50)
[2022-03-07] MEDS: Insulin LISPRO 300 UNITS/3 ML VIAL SUBQ SCH (17:39)
[2022-03-07 20:59] LABS: Hematocrit 22.6 % (37.5-50.1); Hemoglobin 7.9 g/dL (12.9-16.9)
[2022-03-08 04:06] VITALS: TEMP 99.2; O2SAT 99
[2022-03-08 04:42] LABS: Nucleated Red Blood Cells 1.1 /100 WBC (0)
[2022-03-08 04:44] LABS: Basophils % 0.6 %; Eosinophils # 0.2 K/mcL (0.0-0.6); Eosinophils % 3.1 %; Hematocrit 23.6 % (37.5-50.1); Hemoglobin 8.3 g/dL (12.9-16.9); Immature Granulocytes % 10.6 % (0-4); Immature Platelets 2.3 % (1.1-6.1); Lymphocytes # 0.4 K/mcL (0.6-4.6); Lymphocytes % 6.4 %; Mean Corpuscular HGB Conc 35.2 g/dL (31.6-35.5); Mean Corpuscular Hemoglobin 31.6 pg (28.0-33.3); Mean Corpuscular Volume 89.7 fL (83.0-100.0); Mean Platelet Volume 10.2 fL (9.4-12.4); Monocytes # 0.6 K/mcL (0.0-1.3); Monocytes % 10.1 %; Neutrophils # 3.8 K/mcL (1.6-8.9); Red Blood Count 2.63 M/mcL (4.19-5.50); Red Cell Distribution Width 18.2 % (11.5-14.5); Segmented Neutrophils % 69.2 %; White Blood Count 5.5 K/mcL (4.3-11.1)
[2022-03-08 04:50] LABS: Platelet Count 72 K/mcL (140-400)
[2022-03-08 04:51] LABS: INR 1.1; Prothrombin Time 12.2 Seconds (9.4-12.1)
[2022-03-08 04:57] LABS: Albumin/Globulin Ratio 1.8 (1.1-2.2); Bilirubin,Total 3.2 mg/dL (0.3-1.0); Calcium 8.4 mg/dL (8.6-10.3); Chol/HDL Ratio 4.3 (0-4.9); Globulin 1.7 g/dL (2.4-3.5); Total Protein 4.7 g/dL (6.4-8.9)
[2022-03-08 07:09] VITALS: BP 96/38; PULSE 91
[2022-03-08] MEDS: Lactulose Oral Soln 20 GM/30 ML UDC PO SCH (09:09)
[2022-03-08] MEDS: Insulin LISPRO 300 UNITS/3 ML VIAL SUBQ SCH (09:10)
== END 2022-03-08 11:00 | disposition home or self-care (01) | DRG 442 ==
LOC: 3NENU
PROVIDERS: ADMIT Hospitalist; ATTEND Hospitalist

== ENCOUNTER 2022-03-10 13:04 | Inpatient (IN) ==
[2022-03-10 13:31] LABS: Hemoglobin 6.9 g/dL (12.9-16.9); Mean Corpuscular Volume 92.1 fL (83.0-100.0); Mean Platelet Volume 9.6 fL (9.4-12.4)
[2022-03-10 13:33] LABS: Hematocrit 19.8 % (37.5-50.1); Immature Platelets 2.7 % (1.1-6.1); Mean Corpuscular HGB Conc 34.8 g/dL (31.6-35.5); Mean Corpuscular Hemoglobin 32.1 pg (28.0-33.3); Nucleated Red Blood Cells 0.5 /100 WBC (0); Red Blood Count 2.15 M/mcL (4.19-5.50); Red Cell Distribution Width 18.3 % (11.5-14.5)
[2022-03-10 13:35] LABS: Platelet Count 53 K/mcL (140-400)
[2022-03-10 13:39] LABS: INR 1.1; Prothrombin Time 11.7 Seconds (9.4-12.1)
[2022-03-10 13:48] LABS: Lymphocytes # 0.4 K/mcL (0.6-4.6); Monocytes # 0.3 K/mcL (0.0-1.3); Neutrophils # 3.2 K/mcL (1.6-8.9)
[2022-03-10 13:49] LABS: Platelet Estimate Decreased (Normal)
[2022-03-10 13:55] LABS: Alanine Aminotransferase 24 Units/L (7-52); Albumin 3.3 g/dL (3.5-5.7); Albumin/Globulin Ratio 2.2 (1.1-2.2); Alkaline Phosphatase 148 Units/L (34-104); Aspartate Amino Transferase 29 Units/L (13-39); BUN/Creatinine Ratio 20 (6-26); Bilirubin,Direct 0.5 mg/dL (0.0-0.2); Bilirubin,Indirect 2.2 mg/dL (0.0-1.0); Bilirubin,Total 2.7 mg/dL (0.3-1.0); Blood Urea Nitrogen 48 mg/dL (6-20); Calcium 8.6 mg/dL (8.6-10.3); Carbon Dioxide 22 mEq/L (23-29); Chloride 96 mEq/L (98-107); Ethanol < 10 mg/dL (Less than 10); Globulin 1.5 g/dL (2.4-3.5); Glucose 167 mg/dL (70-105); Osmolality,Calculated 276 (280-300); Potassium 4.6 mEq/L (3.5-5.1); Sodium 125 mEq/L (136-145); Total Protein 4.8 g/dL (6.4-8.9); Troponin I 0.03 ng/mL (< 0.04); eGFR For African Americans 34 (> 60); eGFR For Non-African Americans 28 (> 60)
[2022-03-10] MEDS ORDERED: Lactulose Oral Soln 20 GM/30 ML UDC PO ONE (14:46)
[2022-03-10 15:13] LABS: Bacteria,Urine Few per hpf (None-Few); Bilirubin,Urine Negative (Negative); Blood,Urine Negative (Negative); Clarity,Urine Clear (Clear); Color,Urine Light-Yellow (Yellow); Glucose,Urine (UA) Normal (Normal); Hyaline Casts,Urine Many per lpf (None Seen); Ketones,Urine Negative (Negative); Leukocyte Esterase,Urine Negative (Negative); Mucus,Urine Few per lpf (None-Few); Nitrite,Urine Negative (Negative); Protein,Urine Negative (Neg-Trace); RBC,Urine 0-3 per hpf (0-3); Specific Gravity,Urine 1.014 (1.010-1.025); Squamous Epithelial Cell,Urine Few per hpf (None-Few); Urobilinogen,Urine Normal (Normal); WBC,Urine 0-3 per hpf (0-3)
[2022-03-10 15:15] LABS: Amphetamine Screen,Urine Negative ng/mL (Cutoff=1000); Barbiturate Screen,Urine Negative ng/mL (Cutoff=200); Benzodiazepines Screen,Urine Negative ng/mL (Cutoff=200); Cannabinoid Screen,Urine Negative ng/mL (Cutoff = 50); Cocaine Screen,Urine Negative ng/mL (Cutoff= 300); Opiate Screen,Urine Negative ng/mL (Cutoff=300); Phencyclidine Screen,Urine Negative ng/mL (Cutoff=25)
[2022-03-10] MEDS ORDERED: Albumin 25% 25gram/100mL 25 GM/100 ML IV.SOLN IVPB ONE (16:02)
[2022-03-10] MEDS ORDERED: 0.9 % Sodium Chloride 500 ML IVC ONE (16:02)
[2022-03-10] MEDS ORDERED: Naloxone 0.4 MG/ML INJ IVP PRN (16:28)
[2022-03-10] MEDS ORDERED: D5% in Water 1,000 ML IVC PRN (16:30)
[2022-03-10] MEDS ORDERED: Dextrose Gel 15 GM/37.5 ML TUBE PO PRN ×2 (16:30)
[2022-03-10] MEDS ORDERED: *HR* Dextrose 50 % in Water (Syg) 50 ML SYRINGE IVP PRN (16:30)
[2022-03-10] MEDS: Insulin LISPRO 300 UNITS/3 ML VIAL SUBQ SCH (17:52)
[2022-03-10] MEDS: Gabapentin 400 MG CAPSULE PO SCH (21:34)
[2022-03-10] MEDS: Zinc Sulfate 220 MG CAPSULE PO SCH (21:34)
[2022-03-10] MEDS: Lactulose Oral Soln 20 GM/30 ML UDC PO SCH (21:34)
[2022-03-10] MEDS: allopurinoL 100 MG TABLET PO SCH (21:34)
[2022-03-10] MEDS: Insulin DETEMIR 100 UNIT/ML X5UNITS SUBQ SCH (21:34)
[2022-03-10] MEDS: Sucralfate 1 GM TABLET PO SCH (21:34)
[2022-03-11 04:21] LABS: Basophils % 0.3 %; Nucleated Red Blood Cells 0.9 /100 WBC (0)
[2022-03-11 04:23] LABS: Eosinophils % 1.2 %; Hematocrit 19.7 % (37.5-50.1); Hemoglobin 6.9 g/dL (12.9-16.9); Immature Granulocytes % 8.7 % (0-4); Immature Platelets 2.1 % (1.1-6.1); Lymphocytes # 0.2 K/mcL (0.6-4.6); Lymphocytes % 5.5 %; Mean Corpuscular Hemoglobin 31.4 pg (28.0-33.3); Mean Corpuscular Volume 89.5 fL (83.0-100.0); Mean Platelet Volume 9.5 fL (9.4-12.4); Monocytes # 0.3 K/mcL (0.0-1.3); Monocytes % 7.5 %; Neutrophils # 2.7 K/mcL (1.6-8.9); Red Cell Distribution Width 17.3 % (11.5-14.5); Segmented Neutrophils % 76.8 %; White Blood Count 3.5 K/mcL (4.3-11.1)
[2022-03-11] MEDS ORDERED: Albumin 25% 25gram/100mL 25 GM/100 ML IV.SOLN IVPB ONE (04:23)
[2022-03-11 04:35] LABS: Platelet Count 51 K/mcL (140-400)
[2022-03-11 04:43] LABS: Calcium 8.2 mg/dL (8.6-10.3); Potassium 4.5 mEq/L (3.5-5.1)
[2022-03-11] MEDS ORDERED: Artificial Tears SOLN 15 ML BOTTLE BOTH EYES PRN ×2 (08:50→08:54)
[2022-03-11] MEDS ORDERED: Chlorhexidine Rinse 15 ML MOUTHWASH MM SCH (09:00)
[2022-03-11] MEDS: FentaNYL (PF) 1,000 MCG/100 ML IV.SOLN IVC SCH (09:12)
[2022-03-11] MEDS: Dexmedetomidine HCl 400 MCG/100 ML MLS IVC SCH (09:13)
[2022-03-11] MEDS: Iron Polysaccharide Complex 150 MG CAPSULE PO SCH (09:17)
[2022-03-11] MEDS: Insulin LISPRO 300 UNITS/3 ML VIAL SUBQ SCH ×3 (09:27→16:49)
[2022-03-11] MEDS: Pantoprazole 40 MG VIAL IVP SCH (09:29)
[2022-03-11] MEDS: Sucralfate 1 GM TABLET PO SCH ×3 (09:29→20:07)
[2022-03-11] MEDS: Gabapentin 400 MG CAPSULE PO SCH ×2 (09:29→20:07)
[2022-03-11] MEDS: Chlorhexidine Rinse 15 ML MOUTHWASH MM SCH ×2 (09:29→20:07)
[2022-03-11] MEDS: Lactulose Oral Soln 20 GM/30 ML UDC PO SCH ×4 (09:29→20:08)
[2022-03-11] MEDS: Artificial Tears SOLN 15 ML BOTTLE BOTH EYES SCH ×3 (09:30→20:08)
[2022-03-11 10:14] LABS: ABG Base Excess -3 mEq/L (-2 to 3); ABG HCO3 22 mEq/L (21-27); ABG Oxygen Saturation 99 % (95-98); ABG PCO2 40 mmHg (35-45); ABG PH 7.35 pH Units (7.32-7.45); ABG PO2 153 mmHg (85-104); ABG TCO2 23 mEq/L (20-26); Blood Gas Modality AF; Blood Gas VT 500 cc
[2022-03-11 10:19] LABS: White Blood Count 3.3 K/mcL (4.3-11.1)
[2022-03-11 10:20] LABS: Hematocrit 19.2 % (37.5-50.1); Hemoglobin 6.6 g/dL (12.9-16.9); Mean Corpuscular HGB Conc 34.4 g/dL (31.6-35.5); Mean Corpuscular Hemoglobin 31.1 pg (28.0-33.3); Mean Corpuscular Volume 90.6 fL (83.0-100.0); Red Blood Count 2.12 M/mcL (4.19-5.50); Red Cell Distribution Width 17.7 % (11.5-14.5)
[2022-03-11] MEDS: Insulin DETEMIR 100 UNIT/ML X5UNITS SUBQ SCH (10:32)
[2022-03-11] MEDS: cefTRIAXone 2,000 MG in 0.9 % Sodium Chloride 20 ML IVP SCH (10:36)
[2022-03-11 10:40] LABS: Albumin 3.4 g/dL (3.5-5.7); Albumin/Globulin Ratio 3.1 (1.1-2.2); Bilirubin,Total 3.3 mg/dL (0.3-1.0); Calcium 8.3 mg/dL (8.6-10.3); Globulin 1.1 g/dL (2.4-3.5); Potassium 4.6 mEq/L (3.5-5.1); Total Protein 4.5 g/dL (6.4-8.9)
[2022-03-11 10:53] LABS: Thyroid Stimulating Hormone 8.455 mcIU/mL (0.340-5.600)
[2022-03-11] MEDS: Norepinephrine 4 MG/254 ML IV.SOLN IVC SCH ×2 (11:00→19:10)
[2022-03-11 11:11] LABS: Hepatitis B Surface Antigen Nonreactive (Nonreactive)
[2022-03-11] MEDS ORDERED: 0.9 % Sodium Chloride 500 ML ONE (11:37)
[2022-03-11 11:39] LABS: Hepatitis C Virus Antibody Nonreactive (Nonreactive)
[2022-03-11 11:40] LABS: Hepatitis B Core IgM Nonreactive (Nonreactive)
[2022-03-11 11:41] LABS: Hepatitis A Antibody IgM Nonreactive (Nonreactive)
[2022-03-11 11:46] LABS: Hematocrit 18.4 % (37.5-50.1); Hemoglobin 6.3 g/dL (12.9-16.9)
[2022-03-11] MEDS ORDERED: Artificial Tears SOLN 15 ML BOTTLE BOTH EYES SCH (12:00)
[2022-03-11 17:53] LABS: Hematocrit 26.6 % (37.5-50.1); Nucleated Red Blood Cells 0.3 /100 WBC (0); Red Cell Distribution Width 17.5 % (11.5-14.5)
[2022-03-11 17:55] LABS: Eosinophils # 0.1 K/mcL (0.0-0.6); Hemoglobin 9.4 g/dL (12.9-16.9); Immature Platelets 2.1 % (1.1-6.1); Mean Corpuscular HGB Conc 35.3 g/dL (31.6-35.5); Mean Corpuscular Hemoglobin 30.8 pg (28.0-33.3); Mean Corpuscular Volume 87.2 fL (83.0-100.0); Mean Platelet Volume 9.3 fL (9.4-12.4); Red Blood Count 3.05 M/mcL (4.19-5.50); White Blood Count 5.9 K/mcL (4.3-11.1)
[2022-03-11 18:07] LABS: Platelet Count 64 K/mcL (140-400)
[2022-03-11 18:25] LABS: Lymphocytes # 0.8 K/mcL (0.6-4.6); Monocytes # 0.1 K/mcL (0.0-1.3); Neutrophils # 4.6 K/mcL (1.6-8.9)
[2022-03-11 18:26] LABS: Platelet Estimate Decreased (Normal)
[2022-03-11] MEDS: Zinc Sulfate 220 MG CAPSULE PO SCH (20:07)
[2022-03-11] MEDS: allopurinoL 100 MG TABLET PO SCH (20:07)
[2022-03-12] MEDS: Artificial Tears SOLN 15 ML BOTTLE BOTH EYES SCH ×4 (00:01→09:54)
[2022-03-12] MEDS: Insulin LISPRO 300 UNITS/3 ML VIAL SUBQ SCH ×4 (00:02→18:01)
[2022-03-12] MEDS: Albumin 25% 25gram/100mL 25 GM/100 ML IV.SOLN IVPB SCH ×4 (00:21→15:14)
[2022-03-12 01:31] LABS: Hematocrit 26.9 % (37.5-50.1); Hemoglobin 9.4 g/dL (12.9-16.9); Immature Platelets 1.9 % (1.1-6.1); Mean Corpuscular HGB Conc 34.9 g/dL (31.6-35.5); Mean Corpuscular Hemoglobin 30.4 pg (28.0-33.3); Mean Corpuscular Volume 87.1 fL (83.0-100.0); Mean Platelet Volume 9.7 fL (9.4-12.4); Red Blood Count 3.09 M/mcL (4.19-5.50); Red Cell Distribution Width 18.2 % (11.5-14.5); White Blood Count 6.4 K/mcL (4.3-11.1)
[2022-03-12 01:47] LABS: Albumin 3.5 g/dL (3.5-5.7); Albumin/Globulin Ratio 2.2 (1.1-2.2); Bilirubin,Total 3.7 mg/dL (0.3-1.0); Calcium 8.4 mg/dL (8.6-10.3); Globulin 1.6 g/dL (2.4-3.5); Potassium 4.3 mEq/L (3.5-5.1); Total Protein 5.1 g/dL (6.4-8.9)
[2022-03-12 01:50] LABS: Magnesium 2.1 mg/dL (1.6-2.6); Phosphorous 3.4 mg/dL (2.7-4.5)
[2022-03-12] MEDS: Norepinephrine 4 MG/254 ML IV.SOLN IVC SCH ×4 (02:01→23:01)
[2022-03-12] MEDS: FentaNYL (PF) 1,000 MCG/100 ML IV.SOLN IVC SCH (03:53)
[2022-03-12 04:08] LABS: ABG Base Excess -4 mEq/L (-2 to 3); ABG HCO3 22 mEq/L (21-27); ABG Oxygen Saturation 98 % (95-98); ABG PCO2 40 mmHg (35-45); ABG PH 7.35 pH Units (7.32-7.45); ABG PO2 115 mmHg (85-104); ABG TCO2 23 mEq/L (20-26); Blood Gas VT 500 cc
[2022-03-12] MEDS: Iron Polysaccharide Complex 150 MG CAPSULE PO SCH (07:14)
[2022-03-12] MEDS: Dexmedetomidine HCl 400 MCG/100 ML MLS IVC SCH (07:14)
[2022-03-12] MEDS: Sucralfate 1 GM TABLET PO SCH ×2 (07:22→20:07)
[2022-03-12] MEDS: Lactulose Oral Soln 20 GM/30 ML UDC PO SCH ×5 (07:22→20:07)
[2022-03-12] MEDS: Gabapentin 400 MG CAPSULE PO SCH ×2 (07:22→20:07)
[2022-03-12] MEDS: Chlorhexidine Rinse 15 ML MOUTHWASH MM SCH ×2 (07:22→20:07)
[2022-03-12] MEDS: Pantoprazole 40 MG VIAL IVP SCH (07:23)
[2022-03-12] MEDS: cefTRIAXone 2,000 MG in 0.9 % Sodium Chloride 20 ML IVP SCH (07:23)
[2022-03-12] MEDS ORDERED: *HR* Midazolam HCl 5 MG/5 ML VIAL IVP ONE (07:35)
[2022-03-12] MEDS ORDERED: *HR* Etomidate 20 MG/10 ML AMPUL IVP ONE (07:35)
[2022-03-12] MEDS: allopurinoL 100 MG TABLET PO SCH (20:07)
[2022-03-12] MEDS: Zinc Sulfate 220 MG CAPSULE PO SCH (20:07)
[2022-03-13] MEDS: Insulin LISPRO 300 UNITS/3 ML VIAL SUBQ SCH ×6 (00:17→20:05)
[2022-03-13] MEDS: Albumin 25% 25gram/100mL 25 GM/100 ML IV.SOLN IVPB SCH ×3 (00:18→17:28)
[2022-03-13 05:58] LABS: Red Cell Distribution Width 17.8 % (11.5-14.5)
[2022-03-13 06:01] LABS: Hematocrit 20.2 % (37.5-50.1); Hemoglobin 6.8 g/dL (12.9-16.9); Immature Platelets 2.6 % (1.1-6.1); Mean Corpuscular HGB Conc 33.7 g/dL (31.6-35.5); Mean Corpuscular Hemoglobin 30.5 pg (28.0-33.3); Mean Corpuscular Volume 90.6 fL (83.0-100.0); Mean Platelet Volume 9.9 fL (9.4-12.4); Red Blood Count 2.23 M/mcL (4.19-5.50); White Blood Count 3.1 K/mcL (4.3-11.1)
[2022-03-13 06:17] LABS: Albumin 3.7 g/dL (3.5-5.7); Albumin/Globulin Ratio 3.4 (1.1-2.2); Bilirubin,Total 1.9 mg/dL (0.3-1.0); Calcium 8.3 mg/dL (8.6-10.3); Globulin 1.1 g/dL (2.4-3.5); Potassium 4.4 mEq/L (3.5-5.1); Total Protein 4.8 g/dL (6.4-8.9)
[2022-03-13] MEDS: Iron Polysaccharide Complex 150 MG CAPSULE PO SCH (08:01)
[2022-03-13] MEDS: Lactulose Oral Soln 20 GM/30 ML UDC PO SCH ×4 (08:01→20:08)
[2022-03-13] MEDS: Chlorhexidine Rinse 15 ML MOUTHWASH MM SCH ×2 (08:01→20:08)
[2022-03-13] MEDS: Sucralfate 1 GM TABLET PO SCH ×2 (08:01→20:07)
[2022-03-13] MEDS: Gabapentin 400 MG CAPSULE PO SCH ×2 (08:01→20:07)
[2022-03-13] MEDS: cefTRIAXone 2,000 MG in 0.9 % Sodium Chloride 20 ML IVP SCH (08:02)
[2022-03-13] MEDS: Pantoprazole 40 MG VIAL IVP SCH (08:02)
[2022-03-13 08:24] LABS: Total Volume 24 Hour,Urine 1.44 Liters (0.80-1.80)
[2022-03-13 12:29] LABS: Hematocrit 17.6 % (37.5-50.1)
[2022-03-13] MEDS: Norepinephrine 4 MG/254 ML IV.SOLN IVC SCH (12:46)
[2022-03-13] MEDS ORDERED: 0.9 % Sodium Chloride 250 ML ONE (15:37)
[2022-03-13] MEDS: *HR* OxyCODONE Immed Rel 5 MG TABLET PO PRN ×2 (16:09→20:09)
[2022-03-13] MEDS: Ondansetron 4 MG/2 ML VIAL IVP PRN (18:22)
[2022-03-13] MEDS: allopurinoL 100 MG TABLET PO SCH (20:07)
[2022-03-13] MEDS: Zinc Sulfate 220 MG CAPSULE PO SCH (20:07)
[2022-03-13] MEDS: Insulin DETEMIR 100 UNIT/ML X5UNITS SUBQ SCH (20:11)
[2022-03-13 21:40] LABS: Hematocrit 19.9 % (37.5-50.1); Hemoglobin 6.8 g/dL (12.9-16.9)
[2022-03-14] MEDS: Ondansetron 4 MG/2 ML VIAL IVP PRN (02:22)
[2022-03-14 06:53] LABS: Hematocrit 20.6 % (37.5-50.1); Hemoglobin 6.8 g/dL (12.9-16.9); Immature Platelets 2.1 % (1.1-6.1); Mean Corpuscular Volume 90.7 fL (83.0-100.0); Mean Platelet Volume 10.2 fL (9.4-12.4); Red Blood Count 2.27 M/mcL (4.19-5.50); Red Cell Distribution Width 17.5 % (11.5-14.5); White Blood Count 2.4 K/mcL (4.3-11.1)
[2022-03-14 07:13] LABS: Albumin 3.7 g/dL (3.5-5.7); Albumin/Globulin Ratio 3.1 (1.1-2.2); Bilirubin,Total 1.4 mg/dL (0.3-1.0); Calcium 8.8 mg/dL (8.6-10.3); Globulin 1.2 g/dL (2.4-3.5); Total Protein 4.9 g/dL (6.4-8.9)
[2022-03-14] MEDS: Lactulose Oral Soln 20 GM/30 ML UDC PO SCH ×3 (07:36→17:01)
[2022-03-14] MEDS: Pantoprazole 40 MG VIAL IVP SCH (07:36)
[2022-03-14] MEDS: cefTRIAXone 2,000 MG in 0.9 % Sodium Chloride 20 ML IVP SCH (07:36)
[2022-03-14] MEDS: Chlorhexidine Rinse 15 ML MOUTHWASH MM SCH (07:36)
[2022-03-14] MEDS: Iron Polysaccharide Complex 150 MG CAPSULE PO SCH (07:37)
[2022-03-14] MEDS: Insulin DETEMIR 100 UNIT/ML X5UNITS SUBQ SCH (07:37)
[2022-03-14] MEDS: Gabapentin 400 MG CAPSULE PO SCH (07:37)
[2022-03-14] MEDS: Insulin LISPRO 300 UNITS/3 ML VIAL SUBQ SCH ×3 (07:37→17:01)
[2022-03-14] MEDS: Sucralfate 1 GM TABLET PO SCH (07:37)
[2022-03-14] MEDS ORDERED: 0.9 % Sodium Chloride 250 ML ONE (11:56)
[2022-03-14] MEDS: *HR* OxyCODONE Immed Rel 5 MG TABLET PO PRN (13:00)
[2022-03-15] MEDS: Sucralfate 1 GM TABLET PO SCH ×2 (00:26→10:25)
[2022-03-15] MEDS: Insulin DETEMIR 100 UNIT/ML X5UNITS SUBQ SCH ×3 (00:27→20:40)
[2022-03-15] MEDS: Lactulose Oral Soln 20 GM/30 ML UDC PO SCH ×5 (00:27→20:39)
[2022-03-15] MEDS: Gabapentin 400 MG CAPSULE PO SCH ×3 (00:27→20:38)
[2022-03-15] MEDS: allopurinoL 100 MG TABLET PO SCH ×2 (00:27→20:39)
[2022-03-15] MEDS: Chlorhexidine Rinse 15 ML MOUTHWASH MM SCH ×3 (00:27→20:38)
[2022-03-15] MEDS: Insulin LISPRO 300 UNITS/3 ML VIAL SUBQ SCH ×5 (00:29→20:39)
[2022-03-15] MEDS: Zinc Sulfate 220 MG CAPSULE PO SCH ×2 (00:45→20:38)
[2022-03-15 01:37] LABS: Hematocrit 23.7 % (37.5-50.1); Mean Corpuscular HGB Conc 33.8 g/dL (31.6-35.5); Mean Corpuscular Hemoglobin 30.4 pg (28.0-33.3); Mean Corpuscular Volume 90.1 fL (83.0-100.0); Mean Platelet Volume 9.2 fL (9.4-12.4); Red Blood Count 2.63 M/mcL (4.19-5.50); Red Cell Distribution Width 17.2 % (11.5-14.5); White Blood Count 2.9 K/mcL (4.3-11.1)
[2022-03-15 01:39] LABS: Platelet Count 35 K/mcL (140-400)
[2022-03-15 01:41] LABS: Albumin 3.6 g/dL (3.5-5.7); Albumin/Globulin Ratio 2.6 (1.1-2.2); Bilirubin,Total 1.4 mg/dL (0.3-1.0); Calcium 9.1 mg/dL (8.6-10.3); Globulin 1.4 g/dL (2.4-3.5); Potassium 4.5 mEq/L (3.5-5.1)
[2022-03-15] MEDS: Norepinephrine 4 MG/254 ML IV.SOLN IVC SCH ×2 (06:44→18:50)
[2022-03-15] MEDS: cefTRIAXone 2,000 MG in 0.9 % Sodium Chloride 20 ML IVP SCH (07:59)
[2022-03-15] MEDS: Pantoprazole 40 MG VIAL IVP SCH (08:00)
[2022-03-15] MEDS ORDERED: Lactulose 200 GM, Sodium Chloride IRRigation 700 ML RC ONE (10:24)
[2022-03-15] MEDS: Iron Polysaccharide Complex 150 MG CAPSULE PO SCH (10:25)
[2022-03-15] MEDS ORDERED: Lidocaine -MPF 1% 5 ML AMPUL INFILT ONE (13:09)
[2022-03-15] MEDS ORDERED: 0.9 % Sodium Chloride 250 ML ONE (13:58)
[2022-03-15] MEDS: Albumin 25% 25gram/100mL 25 GM/100 ML IV.SOLN IVPB SCH (17:18)
[2022-03-15] MEDS: *HR* OxyCODONE Immed Rel 5 MG TABLET PO PRN (20:38)
[2022-03-16] MEDS: Albumin 25% 25gram/100mL 25 GM/100 ML IV.SOLN IVPB SCH ×3 (00:55→16:06)
[2022-03-16 03:41] LABS: Red Cell Distribution Width 17.2 % (11.5-14.5)
[2022-03-16 03:43] LABS: Hematocrit 25.3 % (37.5-50.1); Hemoglobin 8.3 g/dL (12.9-16.9); Immature Platelets 2.1 % (1.1-6.1); Mean Corpuscular HGB Conc 32.8 g/dL (31.6-35.5); Mean Corpuscular Hemoglobin 30.1 pg (28.0-33.3); Mean Corpuscular Volume 91.7 fL (83.0-100.0); Mean Platelet Volume 9.3 fL (9.4-12.4); Red Blood Count 2.76 M/mcL (4.19-5.50); White Blood Count 3.6 K/mcL (4.3-11.1)
[2022-03-16 04:01] LABS: Albumin 3.9 g/dL (3.5-5.7); Albumin/Globulin Ratio 2.3 (1.1-2.2); Bilirubin,Total 1.3 mg/dL (0.3-1.0); Calcium 9.1 mg/dL (8.6-10.3); Globulin 1.7 g/dL (2.4-3.5); Potassium 3.6 mEq/L (3.5-5.1); Total Protein 5.6 g/dL (6.4-8.9)
[2022-03-16] MEDS: Insulin LISPRO 300 UNITS/3 ML VIAL SUBQ SCH ×4 (07:37→20:25)
[2022-03-16] MEDS: Gabapentin 400 MG CAPSULE PO SCH ×2 (07:37→20:25)
[2022-03-16] MEDS: Insulin DETEMIR 100 UNIT/ML X5UNITS SUBQ SCH ×2 (07:38→20:25)
[2022-03-16] MEDS: Pantoprazole 40 MG VIAL IVP SCH (07:38)
[2022-03-16] MEDS: Lactulose Oral Soln 20 GM/30 ML UDC PO SCH ×4 (07:38→20:25)
[2022-03-16] MEDS: Iron Polysaccharide Complex 150 MG CAPSULE PO SCH (07:38)
[2022-03-16] MEDS: Chlorhexidine Rinse 15 ML MOUTHWASH MM SCH ×2 (07:38→20:25)
[2022-03-16] MEDS: Norepinephrine 4 MG/254 ML IV.SOLN IVC SCH (16:06)
[2022-03-16] MEDS: allopurinoL 100 MG TABLET PO SCH (20:25)
[2022-03-16] MEDS: Zinc Sulfate 220 MG CAPSULE PO SCH (20:25)
[2022-03-17 05:13] LABS: Hemoglobin 7.9 g/dL (12.9-16.9)
[2022-03-17 05:15] LABS: Hematocrit 24.4 % (37.5-50.1); Immature Platelets 1.9 % (1.1-6.1); Mean Corpuscular HGB Conc 32.4 g/dL (31.6-35.5); Mean Corpuscular Hemoglobin 30.3 pg (28.0-33.3); Mean Corpuscular Volume 93.5 fL (83.0-100.0); Mean Platelet Volume 9.6 fL (9.4-12.4); Red Blood Count 2.61 M/mcL (4.19-5.50); Red Cell Distribution Width 17.3 % (11.5-14.5); White Blood Count 3.2 K/mcL (4.3-11.1)
[2022-03-17 05:33] LABS: Albumin 3.9 g/dL (3.5-5.7); Albumin/Globulin Ratio 3.3 (1.1-2.2); Bilirubin,Total 1.6 mg/dL (0.3-1.0); Calcium 8.7 mg/dL (8.6-10.3); Globulin 1.2 g/dL (2.4-3.5); Potassium 3.5 mEq/L (3.5-5.1); Total Protein 5.1 g/dL (6.4-8.9)
[2022-03-17] MEDS: Chlorhexidine Rinse 15 ML MOUTHWASH MM SCH ×2 (08:24→20:56)
[2022-03-17] MEDS: Iron Polysaccharide Complex 150 MG CAPSULE PO SCH (08:24)
[2022-03-17] MEDS: Lactulose Oral Soln 20 GM/30 ML UDC PO SCH ×4 (08:24→20:56)
[2022-03-17] MEDS: Pantoprazole 40 MG VIAL IVP SCH (08:24)
[2022-03-17] MEDS: Insulin LISPRO 300 UNITS/3 ML VIAL SUBQ SCH ×4 (08:25→20:57)
[2022-03-17] MEDS: Gabapentin 400 MG CAPSULE PO SCH ×2 (08:25→20:57)
[2022-03-17] MEDS: Insulin DETEMIR 100 UNIT/ML X5UNITS SUBQ SCH ×2 (09:29→21:00)
[2022-03-17] MEDS: allopurinoL 100 MG TABLET PO SCH (20:57)
[2022-03-17] MEDS: Zinc Sulfate 220 MG CAPSULE PO SCH (20:57)
[2022-03-17] MEDS ORDERED: 0.9 % Sodium Chloride 250 ML IVC ONE (21:20)
[2022-03-18] MEDS ORDERED: 0.9 % Sodium Chloride 250 ML IV ONE (00:44)
[2022-03-18 05:25] LABS: Hematocrit 23.2 % (37.5-50.1); Hemoglobin 7.6 g/dL (12.9-16.9); Immature Platelets 2.5 % (1.1-6.1); Mean Corpuscular HGB Conc 32.8 g/dL (31.6-35.5); Mean Corpuscular Hemoglobin 30.4 pg (28.0-33.3); Mean Corpuscular Volume 92.8 fL (83.0-100.0); Mean Platelet Volume 9.3 fL (9.4-12.4); Red Blood Count 2.5 M/mcL (4.19-5.50); Red Cell Distribution Width 17.3 % (11.5-14.5); White Blood Count 3.2 K/mcL (4.3-11.1)
[2022-03-18 05:32] LABS: INR 1.1; Prothrombin Time 11.9 Seconds (9.4-12.1)
[2022-03-18 05:40] LABS: Albumin 3.4 g/dL (3.5-5.7); Albumin/Globulin Ratio 2.6 (1.1-2.2); Bilirubin,Total 1.1 mg/dL (0.3-1.0); Calcium 8.6 mg/dL (8.6-10.3); Globulin 1.3 g/dL (2.4-3.5); Potassium 3.6 mEq/L (3.5-5.1); Total Protein 4.7 g/dL (6.4-8.9)
[2022-03-18] MEDS: Pantoprazole 40 MG VIAL IVP SCH (09:42)
[2022-03-18] MEDS: Lactulose Oral Soln 20 GM/30 ML UDC PO SCH (09:42)
[2022-03-18] MEDS: Chlorhexidine Rinse 15 ML MOUTHWASH MM SCH (09:43)
[2022-03-18] MEDS: Iron Polysaccharide Complex 150 MG CAPSULE PO SCH (09:43)
[2022-03-18] MEDS: Insulin LISPRO 300 UNITS/3 ML VIAL SUBQ SCH (09:44)
[2022-03-18] MEDS: Insulin DETEMIR 100 UNIT/ML X5UNITS SUBQ SCH (09:44)
[2022-03-18] MEDS: Gabapentin 400 MG CAPSULE PO SCH (09:54)
[2022-03-18] MEDS ORDERED: Albumin 25% 25gram/100mL 25 GM/100 ML IV.SOLN ONE (10:17)
[2022-03-18] MEDS ORDERED: *HR* LORazepam Oral Conc 2 MG/ML SL PRN (12:48)
[2022-03-18] MEDS: Albumin 25% 25gram/100mL 25 GM/100 ML IV.SOLN IVPB SCH (16:38)
[2022-03-19] MEDS: Albumin 25% 25gram/100mL 25 GM/100 ML IV.SOLN IVPB SCH ×2 (00:14→09:02)
[2022-03-19] MEDS: Pantoprazole 40 MG VIAL IVP SCH (09:16)
[2022-03-19] MEDS ORDERED: *HR* LORazepam Oral Conc 2 MG/ML SL PRN (10:14)
[2022-03-19] MEDS: Lactulose Oral Soln 20 GM/30 ML UDC PO SCH ×4 (12:22→20:03)
[2022-03-19] MEDS: Ondansetron 4 MG/2 ML VIAL IVP PRN (20:03)
[2022-03-19] MEDS ORDERED: *HR* Promethazine 25 MG/ML VIAL IM PRN (21:44)
[2022-03-20 07:18] VITALS: O2SAT 98
[2022-03-20] MEDS: Lactulose Oral Soln 20 GM/30 ML UDC PO SCH ×2 (08:44→13:12)
[2022-03-20] MEDS: Pantoprazole 40 MG VIAL IVP SCH (08:58)
[2022-03-20 11:24] VITALS: BP 92/44; PULSE 71; TEMP 97
== END 2022-03-20 13:33 | disposition hospice, inpatient (51) | DRG 441 ==
LOC: 2NENU 13:04 → EMEROOARM 13:04 → 2NENU 17:05 → ICNU 03-11 08:51 → SUATTDRO 03-11 08:55 → 2NNU 03-14 21:20 → 2ANU 03-20 09:22
PROVIDERS: ADMIT Hospitalist; ATTEND Internal Medicine

== ENCOUNTER 2022-03-20 10:31 | Inpatient (IN) ==
[2022-03-20] MEDS ORDERED: *HR* LORazepam 2 MG/ML VIAL IVP PRN (11:58)
[2022-03-20] MEDS ORDERED: Glycopyrrolate 0.2 MG/ML VIAL IVP PRN (11:59)
[2022-03-20] MEDS ORDERED: Haloperidol Lactate 5 MG/ML VIAL IVP PRN (11:59)
[2022-03-20] MEDS: *HR* HYDROmorphone (PF) 1 MG/ML SYRINGE IVP PRN ×2 (15:39→23:07)
[2022-03-20 20:09] VITALS: BP 87/37; PULSE 82; TEMP 98; O2SAT 95
== END 2022-03-21 03:35 | disposition expired | DRG 951 ==
LOC: 2ANU 13:14
PROVIDERS: ADMIT Internal Medicine Hospice and Palliative Medicine; ATTEND Internal Medicine Hospice and Palliative Medicine